=== PATIENT | female | born 1975 | race Caucasian/White ===

== ENCOUNTER 2016-08-17 21:23 | Emergency (ER) | payer BC, OTHER ==
[2016-08-17 21:29] VITALS: RESP 18
[2016-08-17] MEDS ORDERED: METOCLOPRAMIDE 5 MG/ML 2 ML VIAL IVP STA (21:55)
[2016-08-17] MEDS ORDERED: SODIUM CHLORIDE 0.9% 1,000 ML IV ONE (21:55)
[2016-08-17] MEDS ORDERED: diphenhydrAMINE 50 MG/ML 1 ML VIAL IVP STA (21:55)
[2016-08-17] MEDS ORDERED: KETOROLAC 30 MG/ML 1 ML VIAL IVP STA (21:55)
--- NOTE | 2016-08-17 22:13 | ED ---
Headache HPI - General Chief Complaint: Headache Stated Complaint: migraine,vomiting Time Seen by Provider: 08/17/16 21:40 Mode of arrival: ambulatory Limitations: no limitations - History of Present Illness Initial Comments: This patient is a 40-year-old woman who states she has history of migraine headaches. She presents today because she is having another one of her usual headaches, however this one has been more severe than his usual. She states that it started coming on gradually about 2 days ago. It is located in the bilateral retro-orbital area. It is an aching that is constant. She has not noted anything that makes it get better, but it is worse if she is in bright light. She tried taking Tylenol without any relief. She states she has had some accompanying nausea and vomiting. She is not having fever or chills, neck stiffness or pain, or any neurologic symptoms. She has previously seen a neurologist regarding headaches and she was given Topamax to take, but had stopped that months ago as she was attempting to become . MD Complaint: headache Onset/Timin -: days(s) Onset Description: gradual Location: right, left, retro-orbital Severity: severe Quality: aching, similar to previous headaches, worst headache of life Consistency: constant Improves With: nothing Worsens With: none Context: occurred at rest Associated Symptoms: nausea, vomiting Treatments Prior to Arrival: Acetaminophen - Related Data Home Medications Medication Instructions Recorded Confirmed Acetaminophen [Tylenol] 1,000 mg PO Q6HR PRN 08/17/16 08/17/16 Multivitamins, Thera [Multivitamin 1 tab PO DAILY 08/17/16 08/17/16 (formulary)] Allergies Allergy/AdvReac Type Severity Reaction Status Date / Time No Known Allergies Allergy Verified 08/17/16 21:55 Review of Systems ROS Statement: Those systems with pertinent positive or pertinent negative responses have been documented in the HPI. ROS Other: All systems not noted in ROS Statement are negative. Constitutional: Denies: fever, chills, weakness Eyes: Denies: eye pain, eye discharge, vision change ENT: Denies: ear pain, hearing loss Respiratory: Denies: cough Cardiovascular: Denies: chest pain Gastrointestinal: Reports: nausea, vomiting. Denies: abdominal pain, diarrhea Musculoskeletal: Denies: back pain Skin: Denies: rash Neurological: Reports: as per HPI, headache. Denies: weakness, numbness, paresthesias, confusion Psychiatric: Denies: anxiety Past Medical History Past Medical History: Fibromyalgia Additional Past Medical History / Comment(s): migraines History of Any Multi-Drug Resistant Organisms: None Reported Past Surgical History: Cholecystectomy Additional Past Surgical History / Comment(s): lab band 2010, invetro Past Psychological History: Depression Smoking Status: Never smoker Past Alcohol Use History: None Reported Past Drug Use History: None Reported General Exam Limitations: no limitations General appearance: alert, in no apparent distress, obese Head exam: Present: atraumatic, normocephalic Eye exam: Present: normal appearance. Absent: scleral icterus, conjunctival injection ENT exam: Present: normal oropharynx, mucous membranes moist Neck exam: Present: normal inspection, full ROM. Absent: tenderness, meningismus Neurological exam: Present: alert, oriented X3, CN II-XII intact. Absent: motor sensory deficit Skin exam: Present: warm, dry, intact, normal color. Absent: rash Course Vital Signs 08/17/16 21:26 Temperature 98.0 F Pulse Rate 87 Respiratory 18 Rate Blood Pressure 132/72 O2 Sat by Pulse 99 Oximetry Disposition Clinical Impression: Headache Disposition: HOME SELF-CARE Condition: Good Instructions: Acute Headache (ED) Referrals: Vivian Owen MD [Primary Care Provider] - 1-2 days Pato Velázquez MD [STAFF PHYSICIAN] - 1-2 days
--- NOTE | 2016-08-17 23:12 | CT ---
EXAM: CT HEAD Without Contrast INDICATION: 40-year-old female with headache. TECHNIQUE: Multiple, contiguous axial cuts of the brain are obtained from the posterior fossa to the cranial vault. Sagittal and coronal reformatted images provided. No IV contrast is administered. DOSE: CTDI is 57.4 mGy and DLP is 978.2 mGy-cm. DOSE REDUCTION: This CT exam was performed using one or more of the following dose reduction techniques: automated exposure control, adjustment of the mA and/or kV according to patient size, and/or use of iterative reconstruction technique. COMPARISON: 12/02/2015. FINDINGS: No intracranial hemorrhage, abnormal intra- or extra-axial collections or parenchymal lesions are seen. The shape and configuration of the cortical sulci, basal cisterns and ventricles are within normal limits. The carter-white differentiation is preserved. No evidence of mass effect, midline shift, or edema. The osseous structures are unremarkable. Stable maxillary mucosal thickening both bilaterally versus mucous retention cysts/polyps. IMPRESSION: No acute intracranial abnormality significant change.
[2016-08-17 23:34] VITALS: BP 119/61; PULSE 63; TEMP 97.6
== END 2016-08-17 23:45 | disposition home or self-care (01) ==
LOC: EC 21:23
DX: R51 Headache (principal); R11.2 Nausea with vomiting, unspecified; Z86.69 Personal history of other diseases of the nervous system and sense organs; Z79.899 Other long term (current) drug therapy
CPT/HCPCS: 70450; 99283; 96374; 96375 ×2; 96361 ×2; J1200; J2765; J1885

== ENCOUNTER 2016-09-11 04:51 | Observation (INO) | payer BC ==
[2016-09-11] MEDS ORDERED: SODIUM CHLORIDE 0.9% 1,000 ML IV STA (05:11)
[2016-09-11] MEDS ORDERED: ASPIRIN 81 MG CHEW PO STA (05:11)
[2016-09-11] MEDS ORDERED: ADENOSINE 3 MG/ML 2 ML VIAL IVP STA (05:12)
[2016-09-11 05:27] LABS: Basophils # (A) 0.1 k/uL (0-0.2); Basophils % (A) 1 %; CHCM 33.7; Eosinophils % (A) 0 %; HCT 42.4 % (34.0-46.0); HDW 2.74; Luc # (Auto) 0.15; Luc % (Auto) 1; Lymphocytes # (A) 3.1 k/uL (1.0-4.8); Lymphocytes % (A) 30 %; MCH 31.5 pg (25.0-35.0); MCV 95.2 fL (80.0-100.0); Mean Platelet Volume 6.8; Monocytes # (A) 0.7 k/uL (0-1.0); Monocytes % (A) 7 %; Neutrophils # (A) 6.4 k/uL (1.3-7.7); Neutrophils % (A) 61 %; RBC 4.45 m/uL (3.80-5.40); RDW 15.2 % (11.5-15.5); WBC 10.5 k/uL (3.8-10.6); WBC (Perox) 9.91
[2016-09-11 05:37] LABS: Prothrombin Time 10.1 sec (9.0-12.0)
[2016-09-11 05:52] LABS: ALT 28 U/L (9-52); AST 17 U/L (14-36); Alkaline Phosphatase 89 U/L (38-126); Anion Gap 15 mmol/L; Blood Urea Nitrogen 15 mg/dL (7-17); Calcium 9.4 mg/dL (8.4-10.2); Carbon Dioxide 18 mmol/L (22-30); Chloride 110 mmol/L (98-107); Glucose 114 mg/dL (74-99); Magnesium 1.6 mg/dL (1.6-2.3); Non-African American GFR(MDRD) >60 (>60 ml/min/1.73 sqM); Potassium 3.8 mmol/L (3.5-5.1); Sodium 143 mmol/L (137-145); Total Bilirubin 0.2 mg/dL (0.2-1.3)
--- NOTE | 2016-09-11 06:04 | XR ---
EXAM: XR Chest, 2 Views CLINICAL HISTORY: Chest Pain. TECHNIQUE: Frontal and lateral views of the chest. COMPARISON: No relevant prior studies available. FINDINGS: Lungs: No airspace consolidation. Pleural space: No significant pleural effusion. No pneumothorax. Heart: Normal cardiac silhouette allowing for AP technique. Bones/joints: Unremarkable as visualized. IMPRESSION: No acute findings.
[2016-09-11 06:10] LABS: Creatine Kinase MB 1.1 ng/mL (0.0-2.4)
[2016-09-11 06:18] LABS: Troponin I 0.058 ng/mL (0.000-0.034)
[2016-09-11] MEDS ORDERED: NITROGLYCERIN OINT 1 INCH/GM PACKET TOPICAL STA (06:28)
--- NOTE | 2016-09-11 06:43 | ED ---
Chest Pain HPI - General Chief Complaint: Chest Pain Stated Complaint: Chest Pain Time Seen by Provider: 09/11/16 05:11 Source: patient Mode of arrival: ambulatory Limitations: no limitations - History of Present Illness Initial Comments: This 40-year-old white female presents with a complaint of some chest pain which started at approximately 1:00 AM. It woke her from sleep. She was having some shortness of breath as well. She states that the symptoms are fairly severe in nature. She denies any previous similar incidents. She denies any previous known cardiac disease. She's never had SVT in the past. She drove herself to the emergency department. No other complaints or modifying factors. She presents with a heart rate of approximately 230 beats per minute. - Related Data Home Medications Medication Instructions Recorded Confirmed No Known Home Medications [No 09/11/16 09/11/16 Known Home Medications] Allergies Allergy/AdvReac Type Severity Reaction Status Date / Time No Known Allergies Allergy Verified 09/11/16 05:02 Review of Systems ROS Statement: Those systems with pertinent positive or pertinent negative responses have been documented in the HPI. ROS Other: All systems not noted in ROS Statement are negative. Past Medical History Past Medical History: Fibromyalgia Additional Past Medical History / Comment(s): migraines History of Any Multi-Drug Resistant Organisms: None Reported Past Surgical History: Cholecystectomy Additional Past Surgical History / Comment(s): lab band 2010, invetro Past Psychological History: Depression Smoking Status: Never smoker Past Alcohol Use History: None Reported Past Drug Use History: None Reported General Exam - General Exam Comments Initial Comments: GENERAL: The patient is well nourished and well hydrated. VITAL SIGNS: Heart rate, blood pressure, respiratory rate reviewed as recorded in nurse's notes. EYES: Pupils are round and reactive. Extraocular movements are intact. No conjunctival / lid redness or swelling. ENT: No external evidence of injury, swelling, or ecchymosis. Airway is patent. Throat is clear. NECK: Nontender. No swelling or evidence of injury. No subcutaneous emphysema. Trachea is midline. No thyroid mass. HEART: Severely tachycardic heart rate. Good peripheral pulses. LUNGS/CHEST: Breath sounds clear and equal bilaterally. No rales, rhonchi, or wheezes. No ecchymosis, subcutaneous emphysema, or tenderness. ABDOMEN: Abdomen soft without tenderness. No palpable masses or organomegaly. No peritoneal signs. No abdominal wall swelling or ecchymosis. EXTREMITIES: No extremity tenderness. Normal muscle tone and function. No thoracolumbar tenderness. NEUROLOGIC: Sensation is grossly intact. Cranial nerve exam reveals face is symmetrical, tongue is midline, speech is clear. SKIN: No abrasions or ecchymosis is noted. No induration or masses noted. PSYCHIATRIC: Alert and oriented. Appropriate behavior and judgment. Limitations: no limitations Course Vital Signs 09/11/16 09/11/16 09/11/16 04:55 05:08 05:19 Temperature 98.4 F Pulse Rate 220 H 230 H 90 Respiratory 20 18 Rate Blood Pressure 135/71 114/68 O2 Sat by Pulse 99 100 Oximetry 09/11/16 05:47 Temperature Pulse Rate 85 Respiratory 18 Rate Blood Pressure 113/67 O2 Sat by Pulse 100 Oximetry Chest Pain MDM - MDM The patient was seen and examined immediately upon arrival. Her initial EKG shows a supraventricular tachycardia at a heart rate of 231. There are multiple ST-T wave changes which are likely rate related. The QRS duration is 72 and the QTc interval is 368. She is placed on a cardiac respiratory monitor. She received 6 modems of adenosine and does convert into a normal sinus rhythm. The repeat EKG shows a normal sinus rhythm at a rate of 94. There is no acute ST-T wave changes identified. The AR interval is 144, QS duration is 82, the QTc interval is 407. She is feeling markedly improved. She did receive some fluid hydration as well as aspirin and Nitropaste. Her troponin came back slightly elevated. The remainder of labs are essentially within normal limits. The chest x-ray is negative. Is felt as though the patient would require admission to the hospital for further treatment especially in light of the elevated troponin. Case is discussed with internal medicine and they are agreeable to admission with cardiology to consult. Disposition Clinical Impression: SVT (supraventricular tachycardia), Elevated troponin, Chest pain, Unstable angina pectoris Disposition: ADMITTED IP TO THIS HOSP Condition: Fair Time of Disposition: 06:53 Decision Date: 09/11/16 Decision Time: 06:53
[2016-09-11] MEDS ORDERED: NITROGLYCERIN SL TABS 0.4 MG TAB SUBLINGUAL PRN (06:54)
[2016-09-11] MEDS ORDERED: HEPARIN SODIUM,PORCINE 5,000 UNIT/ML 1 ML VIAL IV ONE (06:54)
[2016-09-11] MEDS: HEPARIN SODIUM,PORCINE/D5W PMX 25,000 UNIT in DEXTROSE/WATER 1 500ML.BAG IV SCH (07:50)
[2016-09-11 08:45] VITALS: BMI 43.9
--- NOTE | 2016-09-11 09:53 | ECHOF ---
Referral Reason: MEASUREMENTS -------- HEIGHT: 162.6 cm WEIGHT: 113.4 kg BP: 116/70 IVSd: 1.5 cm (0.6 - 1.1) LVIDd: 3.8 cm (3.9 - 5.3) LVPWd: 1.3 cm (0.6 - 1.1) LVIDs: 2.3 cm Ao Diam: 3.3 cm (2.0 - 3.7) LA Diam: 3.2 cm (2.7 - 3.8) AV Cusp: 2.5 cm (1.5 - 2.6) EPSS: 0.2 cm MV E Frandy: 0.85 m/s MV DecT: 154 ms MV A Frandy: 0.46 m/s MV E/A Ratio: 1.85 RAP: 5.00 mmHg RVSP: 12.89 mmHg MV EF SLOPE: 132.16 mm/s (70 - 150) MV EXCURSION: 21.87 mm (> 18.000) FINDINGS -------- Sinus rhythm. This was a technically good study. There is mild concentric left ventricular hypertrophy. Overall left ventricular systolic function is normal with, an EF between 55 - 60 %. The right ventricle is normal in size and function. The left atrium is normal in size. The right atrium is normal in size. The aortic valve is trileaflet, and appears structurally normal. No aortic stenosis or regurgitation. There is trace mitral regurgitation. Trace tricuspid regurgitation present. The right ventricular systolic pressure, as measured by Doppler, is 12.89mmHg. Pulmonic valve appears structurally normal. The aortic root size is normal. The pericardium is normal. CONCLUSIONS -------- 1. Sinus rhythm. 2. Trace tricuspid regurgitation present. 3. The right ventricular systolic pressure, as measured by Doppler, is 12.89mmHg. 4. Pulmonic valve appears structurally normal. 5. The aortic root size is normal. 6. The pericardium is normal. 7. This was a technically good study. 8. There is mild concentric left ventricular hypertrophy. 9. Overall left ventricular systolic function is normal with, an EF between 55 - 60 %. 10. The right ventricle is normal in size and function. 11. The left atrium is normal in size. 12. The right atrium is normal in size. 13. The aortic valve is trileaflet, and appears structurally normal. No aortic stenosis or regurgitation. 14. There is trace mitral regurgitation. MUSHROOM PICKER: Shantel Logan RDCS
[2016-09-11] MEDS: ACETAMINOPHEN TAB 325 MG TAB PO PRN ×2 (10:26→15:29)
[2016-09-11 11:52] LABS: Creatine Kinase MB 2.3 ng/mL (0.0-2.4)
--- NOTE | 2016-09-11 11:54 | P.CRDCN ---
History of Present Illness Consult date: 09/11/16 Reason for Consult (text): SVT, chest pain, elevated troponin Chief complaint: chest pain, rapid heartbeat History of present illness: This is a pleasant 40-year-old female patient with no significant medical history. She does have a history of fibromyalgia and migraines in the past, is not currently on any home medications. She denies any family history of cardiovascular disease. She presented to the emergency department after awakening at around 1 AM with complaints of left-sided chest discomfort that radiated to her arm and also feeling her heart racing and some dizziness. Upon presentation she was found to be in SVT with a heart rate in the 230s. She was given adenosine 6 and converted to sinus rhythm at which time she did have a 4 beat run of nonsustained VT. Laboratory values did show a slightly elevated troponin at 0.058. Since admission, she is maintaining sinus rhythm. She denies any further complaints of chest discomfort. Past Medical History Past Medical History: Fibromyalgia Additional Past Medical History / Comment(s): migraines History of Any Multi-Drug Resistant Organisms: None Reported Past Surgical History: Cholecystectomy Additional Past Surgical History / Comment(s): lab band 2010, invetro Past Psychological History: Depression Smoking Status: Never smoker Past Alcohol Use History: None Reported Past Drug Use History: None Reported - Past Family History Mother Family Medical History: Cancer Additional Family Medical History / Comment(s): Breast CA Brother(s) Family Medical History: No Reported History Medications and Allergies Home Medications Medication Instructions Recorded Confirmed Type No Known Home Medications [No 09/11/16 09/11/16 History Known Home Medications] Allergies Allergy/AdvReac Type Severity Reaction Status Date / Time No Known Allergies Allergy Verified 09/11/16 05:02 Physical Exam Vitals: Vital Signs Temp Pulse Pulse Resp BP BP Pulse Ox 09/11/16 08:25 97.6 F 76 16 103/59 95 09/11/16 07:35 98.0 F 90 18 107/58 99 09/11/16 07:25 97.6 F 91 16 123/75 99 09/11/16 06:52 86 18 116/70 100 09/11/16 05:47 85 18 113/67 100 09/11/16 05:19 90 18 114/68 100 09/11/16 05:08 230 H 09/11/16 04:55 98.4 F 220 H 20 135/71 99 Intake and Output 09/10/16 09/11/16 09/11/16 22:59 06:59 14:59 Intake Total 360 Balance 360 Intake: Oral 360 Other: # Voids 1 Weight 113.398 kg 116 kg Patient Weight 09/12/16 06:59 Weight 116 kg PHYSICAL EXAMINATION: HEENT: Head is atraumatic, normocephalic. Pupils equal, round. Neck is supple. There is no elevated jugular venous pressure. HEART EXAMINATION: Heart sounds regular, S1 and S2 normal. No murmur or gallop heard. CHEST EXAMINATION: Lungs are clear to auscultation and precussion. No chest wall tenderness is noted on palpation or with deep breathing. ABDOMEN: Soft, nontender. Bowel sounds are heard. No organomegaly noted. EXTREMITIES: 2+ peripheral pulses with no evidence of peripheral edema and no calf tenderness noted. NEUROLOGIC patient is awake, alert and oriented x3. . Results 09/11/16 04:56 09/11/16 04:56 Cardiac Enzymes 09/11/16 09/11/16 Range/Units 04:56 04:56 AST 17 (14-36) U/L CK-MB (CK-2) 1.1 (0.0-2.4) ng/mL Troponin I 0.058 H* (0.000-0.034) ng/mL Coagulation 09/11/16 09/11/16 Range/Units 04:56 11:01 PT 10.1 (9.0-12.0) sec APTT 25.0 31.3 H (22.0-30.0) sec CBC 09/11/16 Range/Units 04:56 WBC 10.5 (3.8-10.6) k/uL RBC 4.45 (3.80-5.40) m/uL Hgb 14.0 (11.4-16.0) gm/dL Hct 42.4 (34.0-46.0) % Plt Count 366 (150-450) k/uL Comprehensive Metabolic Panel 09/11/16 Range/Units 04:56 Sodium 143 (137-145) mmol/L Potassium 3.8 (3.5-5.1) mmol/L Chloride 110 H (98-107) mmol/L Carbon Dioxide 18 L (22-30) mmol/L BUN 15 (7-17) mg/dL Creatinine 0.80 (0.52-1.04) mg/dL Glucose 114 H (74-99) mg/dL Calcium 9.4 (8.4-10.2) mg/dL AST 17 (14-36) U/L ALT 28 (9-52) U/L Alkaline Phosphatase 89 (38-126) U/L Total Protein 7.0 (6.3-8.2) g/dL Albumin 4.3 (3.5-5.0) g/dL Current Medications Generic Name Dose Route Start Last Admin Trade Name Freq PRN Reason Stop Dose Admin Acetaminophen 650 mg 09/11/16 10:08 09/11/16 10:26 Tylenol Tab PO 650 mg Q6HR PRN Administration Fever and/ or Pain Aspirin 325 mg 09/12/16 09:00 Aspirin PO DAILY [facility] Heparin Sodium (Porcine) 0 unit 09/11/16 06:54 Heparin IV Q6HR PRN Low PTT Protocol Sodium Chloride 1,000 mls @ 125 mls/hr 09/11/16 05:11 09/11/16 05:19 Saline 0.9% IV 09/11/16 13:10 125 mls/hr .Q8H STA Administration Heparin Sodium/Dextrose 25,000 500 mls @ 20 mls/hr 09/11/16 07:00 09/11/16 07 :50 unit/ IV Solution IV 8.82 units/kg/hr .Q24H BRYCE 20 mls/hr Protocol Administration 8.82 UNITS/KG/HR Nitroglycerin 1 inch 09/11/16 12:00 Nitro-Bid Oint TOPICAL Q6HR [facility] Nitroglycerin 0.4 mg 09/11/16 06:54 Nitrostat SUBLINGUAL Q5M PRN Chest Pain Intake and Output 09/10/16 09/11/16 09/11/16 22:59 06:59 14:59 Intake Total 360 Balance 360 Intake: Oral 360 Other: # Voids 1 Weight 113.398 kg 116 kg Patient Weight 09/12/16 06:59 Weight 116 kg 09/11/16 04:56 09/11/16 04:56 EKG Interpretations (text) Initial EKG shows SVT, subsequent showed sinus rhythm with nonspecific ST-T wave abnormalities Assessment and Plan Plan: Assessment and plan #1 SVT, new onset #2 left-sided chest discomfort #3 mildly elevated troponin From cardiology's perspective, we'll obtain a 2-D echo with Doppler as well as TSH. We will wait second and third sets of troponins. Initiate the patient on beta safia. Further recommendations to follow. INVESTIGATOR FRAUD note has been reviewed, I agree with a documented findings and plan of care. Patient was seen and examined.
--- NOTE | 2016-09-11 11:57 | HP ---
CHIEF COMPLAINT: Chest pain. HISTORY OF PRESENT ILLNESS: This 40-year-old female with past medical history significant for morbid obesity presents to the hospital with new onset chest pain and chest palpitation. Patient said the pain woke her up at 1:00 this morning from sleep where she felt tightness in her chest going to her left arm and that pain continued to happen for a good 1 hour with fluttering in the chest. Her told her that he sees her shirt is moving on her chest due to the fluttering. Patient tried to drink cold water, but it did not help her. Patient tried to go back to sleep, but was not able to do so, thought about calling 911, but her paraplegic said do not call because that will wake her son up from sleep who is 1 year old. The patient had to drive herself to the emergency department and when she got there her heart rate was above 200. EKG showed SVT. Patient received one dose of adenosine 6 mg, that put her back in sinus rhythm and brought the heart rate less than 100. Patient has been symptom free since that time. Her troponin was slightly elevated at 0.05 and was admitted for observation and cardiac evaluation. Patient said that she drinks 3 cups of coffee every day, 3 to 4 [employer]a every day. Denied tobacco, alcohol or drug abuse. Denied any family history of coronary artery disease or sudden cardiac . Her mother is alive and healthy. Her brother is alive and health and her dad committed suicide when he was young. ALLERGIES: No known drug allergies. HOME MEDICATIONS: None. PAST MEDICAL HISTORY: Only significant for morbid obesity. PAST SURGICAL HISTORY: None. SOCIAL HISTORY: As mentioned above. PHYSICAL EXAMINATION: VITAL SIGNS: Temperature 98.0, heart rate of 90, respiratory rate 18, blood pressure 107/58 and heart rate currently is fluctuating between 80 and 90, saturation 99% on room air. GENERAL: In her stated age in no acute distress. HEENT: Atraumatic, normocephalic. PERRLA. NECK: Supple. No masses. No thyromegaly. LUNGS: Clear to auscultation bilaterally. HEART: Normal S1, S2. No murmur, rubs or gallops. LOWER EXTREMITY: No edema. ABDOMEN: Soft, no tenderness. Positive bowel sounds in all 4 quadrants. PSYCH: Alert and oriented x3 in relaxed mood and affect. Normal remote and recent memory. NEURO: Cranial nerves 2 to 12 intact. Normal deep tendon reflexes and sensation. SKIN: No rash. IMAGING AND LABS: CBC entirely normal. Chem-7 entirely normal. Troponin elevated at 0.058. Liver function tests within normal limits. PT, PTT, INR were within normal limits. Chest x-ray showed normal findings. Echo was done this morning and showed preserved ejection fraction with mild concentric left ventricular hypertrophy. No other abnormality found on the 2-D echo. ASSESSMENT AND PLAN: 1. Supraventricular tachycardia responded to adenosine first time. Patient denied any previous episode. Consultation regarding moderate use of caffeine and switch from coffee to decaf. Quit drinking her soda and switch to water. Patient also will be followed by Cardiology in the hospital and outpatient. If she experiences another episode then she might need further evaluation. A 2-D echo was done and showed normal finding. 2. Chest pain, likely representing demand ischemia given that the heart rate was greater than 200. Patient currently is pain free. We will discuss with Cardiology current risk ( ) and possible need for further testing, which can be done in outpatient at this point, but I can discontinue heparin drip safely. 3. Morbid obesity. Consult patient regarding weight loss and healthy lifestyle. DISCHARGE PLANNING: Based on clinical progress. ANTONIO
[2016-09-11 11:59] LABS: Troponin I 0.315 ng/mL (0.000-0.034)
[2016-09-11] MEDS: HEPARIN SODIUM,PORCINE 5,000 UNIT/ML 1 ML VIAL IV PRN (15:28)
[2016-09-11] MEDS: NITROGLYCERIN OINT 1 INCH/GM PACKET TOPICAL SCH ×2 (15:29→17:01)
[2016-09-11] MEDS ORDERED: ONDANSETRON 4 MG/2 ML VIAL IVP PRN (16:02)
[2016-09-11] MEDS: METOPROLOL TARTRATE 25 MG TAB PO SCH ×2 (17:02→20:50)
[2016-09-11] MEDS: BUTALB/APAP/CAFF 50-325-40MG TAB PO PRN ×2 (17:02→18:55)
[2016-09-11 18:05] LABS: Creatine Kinase MB 2.7 ng/mL (0.0-2.4); Troponin I 0.262 ng/mL (0.000-0.034)
[2016-09-11 21:30] VITALS: RESP 16
[2016-09-12] MEDS: NITROGLYCERIN OINT 1 INCH/GM PACKET TOPICAL SCH ×3 (00:06→11:31)
[2016-09-12] MEDS: HEPARIN SODIUM,PORCINE/D5W PMX 25,000 UNIT in DEXTROSE/WATER 1 500ML.BAG IV SCH (06:56)
[2016-09-12] MEDS: HEPARIN SODIUM,PORCINE 5,000 UNIT/ML 1 ML VIAL IV PRN (06:59)
[2016-09-12 07:01] LABS: Cholesterol 135 mg/dL (<200); HDL Cholesterol 47 mg/dL (40-60)
[2016-09-12 07:04] LABS: Mean Platelet Volume 6.5
[2016-09-12] MEDS: METOPROLOL TARTRATE 25 MG TAB PO SCH (08:10)
[2016-09-12] MEDS ORDERED: ASPIRIN 325 MG TAB PO SCH (09:00)
[2016-09-12 11:22] VITALS: BP 137/87; PULSE 85; TEMP 97.5
--- NOTE | 2016-09-15 12:25 | DS ---
ADMISSION DIAGNOSES: 1. Supraventricular tachycardia. 2. Elevated troponin. 3. Hypertriglyceridemia. DISCHARGE DIAGNOSES: 1. Supraventricular tachycardia. 2. Elevated troponin. 3. Hypertriglyceridemia. CONSULTATION: Cardiology. PROCEDURES: 2D echo showed normal ejection fraction with no other abnormality. HOSPITAL COURSE: This is a 40 -year-old female with past medical history significant for morbid obesity, presents to the hospital with new onset chest pain and palpitation that woke her up from sleep at 1 o'clock in the morning. The patient in the emergency room was found to have heart rate greater than 200. EKG showed SVT. The patient received Adenosine 6 mg. Placed her back in normal sinus rhythm with heart rate 80. The patient had elevated troponin and was kept for observation, went up on the second evaluation and down on the third evaluation. That required the patient to be continued on heparin drip and cardiology wanted to keep the patient for close monitoring. Today, the patient is denying chest pain, shortness of breath, nausea and vomiting, abdominal pain, dizziness, lightheadedness or blurry vision. Denies any palpitation during the night. labor commissioner reviewed and showed normal sinus rhythm. The patient unstable from the medical standpoint. PLAN: Discussed with cardiology who would like the patient to follow-up outpatient closely for further evaluation in the future. The patient agreeable to the current treatment plan and was discharged in stable condition. ANTONIO
== END 2016-09-12 15:11 | disposition home or self-care (01) ==
LOC: EC 04:51 → INTOOBSV 06:54 → 6SEL 06:54
PROVIDERS: ADMIT Internal Medicine; ATTEND Internal Medicine
DX: I47.1 Supraventricular tachycardia (principal); R94.31 Abnormal electrocardiogram [ECG] [EKG]; E78.1 Pure hyperglyceridemia; M79.7 Fibromyalgia; G43.909 Migraine, unspecified, not intractable, without status migrainosus; F32.9 Major depressive disorder, single episode, unspecified; E66.01 Morbid (severe) obesity due to excess calories; Z98.84 Bariatric surgery status; Z68.41 Body mass index [BMI] 40.0-44.9, adult
CPT/HCPCS: 96376 ×2; 96365; 96366 ×2; 96375; 96361; 96374; 99285; 36415; 93005; 93306; 80061; 80053; 84443; 82550; 82553; 83735; 84484; 85025; 85049; 85610; 85730 ×2; 71020; G0378 ×2; J1644 ×4; J0153

== ENCOUNTER 2016-12-28 01:09 | Emergency (ER) | payer BC ==
[2016-12-28 02:19] LABS: Basophils # (A) 0.1 k/uL (0-0.2); Basophils % (A) 1 %; CH 31.1; CHCM 32.6; Eosinophils % (A) 0 %; HCT 39.9 % (34.0-46.0); HDW 2.57; Luc # (Auto) 0.11; Luc % (Auto) 1; Lymphocytes # (A) 2.9 k/uL (1.0-4.8); Lymphocytes % (A) 27 %; MCH 31.3 pg (25.0-35.0); MCHC 32.6 g/dL (31.0-37.0); MCV 95.9 fL (80.0-100.0); Mean Platelet Volume 6.7; Monocytes # (A) 0.6 k/uL (0-1.0); Monocytes % (A) 6 %; Neutrophils # (A) 6.8 k/uL (1.3-7.7); Neutrophils % (A) 65 %; RBC 4.16 m/uL (3.80-5.40); WBC 10.5 k/uL (3.8-10.6); WBC (Perox) 10.62
[2016-12-28 02:29] LABS: ALT 26 U/L (9-52); AST 15 U/L (14-36); Alkaline Phosphatase 81 U/L (38-126); Anion Gap 12 mmol/L; Blood Urea Nitrogen 13 mg/dL (7-17); Calcium 9.2 mg/dL (8.4-10.2); Carbon Dioxide 22 mmol/L (22-30); Chloride 107 mmol/L (98-107); Glucose 155 mg/dL (74-99); Non-African American GFR(MDRD) >60 (>60 ml/min/1.73 sqM); Potassium 3.5 mmol/L (3.5-5.1); Sodium 141 mmol/L (137-145); Total Bilirubin <0.1 mg/dL (0.2-1.3); Total Protein 6.7 g/dL (6.3-8.2)
--- NOTE | 2016-12-28 03:31 | ED ---
Seizure HPI - General Chief Complaint: Seizure Stated Complaint: Seizure Time Seen by Provider: 12/28/16 01:12 Source: EMS Mode of arrival: EMS Limitations: no limitations - History of Present Illness Initial Comments: Patient is a 41-year-old woman brought to be evaluated for possible seizure. The patient does give history while having the shaking event. She does complain of pain everywhere. Patient denies trauma related to the shaking. MD Complaint: possible seizure -: hour(s) Description of Episode: tonic-clonic movement -: second(s) Witnessed: yes - by bystander Place: home Possible Precipitating Event: none Associated Symptoms: other (Pain all over) - Related Data Home Medications Medication Instructions Recorded Confirmed Metoprolol Tartrate [Lopressor] 25 mg PO BID 09/12/16 12/28/16 Aspirin EC [Ecotrin Low Dose] 81 mg PO DAILY 12/28/16 12/28/16 Previous Rx's Medication Instructions Recorded Butalb/APAP/Caff 50-325-40Mg 1 each PO Q6HR #30 tab 12/30/16 [Fioricet 50-325-40] Cephalexin [Keflex] 500 mg PO Q8HR #15 cap 12/30/16 levETIRAcetam [Keppra] 750 mg PO Q12H #60 tab 12/30/16 Allergies Allergy/AdvReac Type Severity Reaction Status Date / Time No Known Allergies Allergy Verified 12/28/16 21:43 Review of Systems ROS Statement: Those systems with pertinent positive or pertinent negative responses have been documented in the HPI. ROS Other: All systems not noted in ROS Statement are negative. Constitutional: Denies: fever, chills Respiratory: Denies: cough, dyspnea Cardiovascular: Denies: chest pain, palpitations, syncope Gastrointestinal: Denies: abdominal pain, nausea, vomiting, diarrhea Genitourinary: Denies: dysuria, hematuria Musculoskeletal: Reports: back pain, myalgia Skin: Denies: rash Neurological: Denies: headache, weakness, numbness Past Medical History Past Medical History: Fibromyalgia Additional Past Medical History / Comment(s): migraines, elevated HR History of Any Multi-Drug Resistant Organisms: None Reported Past Surgical History: Cholecystectomy Additional Past Surgical History / Comment(s): lab band 2010, invetro Past Psychological History: Depression Smoking Status: Never smoker Past Alcohol Use History: None Reported Past Drug Use History: None Reported - Past Family History Mother Family Medical History: Cancer Additional Family Medical History / Comment(s): Breast CA Brother(s) Family Medical History: No Reported History General Exam Limitations: no limitations General appearance: alert, in no apparent distress, obese Head exam: Present: atraumatic, normocephalic Eye exam: Present: normal appearance. Absent: scleral icterus, conjunctival injection ENT exam: Present: normal oropharynx Neck exam: Present: normal inspection, full ROM Respiratory exam: Present: normal lung sounds bilaterally. Absent: respiratory distress, wheezes, rales, rhonchi, stridor Cardiovascular Exam: Present: regular rate, normal rhythm, normal heart sounds. Absent: systolic murmur, diastolic murmur, rubs, gallop GI/Abdominal exam: Present: soft. Absent: distended, tenderness, guarding, rebound, rigid Extremities exam: Present: normal capillary refill. Absent: pedal edema, calf tenderness Back exam: Absent: vertebral tenderness Neurological exam: Present: alert, oriented X3, CN II-XII intact. Absent: motor sensory deficit Skin exam: Present: warm, dry, intact, normal color. Absent: rash Course Vital Signs 12/28/16 12/28/16 12/28/16 01:13 02:28 03:00 Temperature 98.6 F Pulse Rate 114 H 106 H 87 Respiratory 20 18 20 Rate Blood Pressure 145/74 133/74 127/60 O2 Sat by Pulse 96 94 L 97 Oximetry 12/28/16 12/28/16 12/28/16 04:00 04:57 05:13 Temperature 98.1 F 98.7 F Pulse Rate 86 91 91 Respiratory 16 18 18 Rate Blood Pressure 120/71 130/60 116/57 O2 Sat by Pulse 98 96 Oximetry Medical Decision Making - Medical Decision Making Patient's a 41-year-old woman brought to be evaluate for suspected seizures. The patient however is alert and is conversant during the shaking episodes which do not appear typical of a true seizure, being more consistent with psychogenic type seizure. - Lab Data Result diagrams: 12/28/16 01:31 12/28/16 01:31 Lab Results 12/28/16 12/28/16 12/28/16 Range/Units 01:31 01:31 02:03 WBC 10.5 (3.8-10.6) k/uL RBC 4.16 (3.80-5.40) m/uL Hgb 13.0 (11.4-16.0) gm/dL Hct 39.9 (34.0-46.0) % MCV 95.9 (80.0-100.0) fL MCH 31.3 (25.0-35.0) pg MCHC 32.6 (31.0-37.0) g/dL RDW 14.0 (11.5-15.5) % Plt Count 394 (150-450) k/uL Neutrophils % 65 % Lymphocytes % 27 % Monocytes % 6 % Eosinophils % 0 % Basophils % 1 % Neutrophils # 6.8 (1.3-7.7) k/uL Lymphocytes # 2.9 (1.0-4.8) k/uL Monocytes # 0.6 (0-1.0) k/uL Eosinophils # 0.0 (0-0.7) k/uL Basophils # 0.1 (0-0.2) k/uL Sodium 141 (137-145) mmol/L Potassium 3.5 (3.5-5.1) mmol/L Chloride 107 (98-107) mmol/L Carbon Dioxide 22 (22-30) mmol/L Anion Gap 12 mmol/L BUN 13 (7-17) mg/dL Creatinine 0.73 (0.52-1.04) mg/dL Est GFR (MDRD) Af Amer >60 (>60 ml/min/1.73 sqM) Est GFR (MDRD) Non-Af >60 (>60 ml/min/1.73 sqM) Glucose 155 H (74-99) mg/dL Calcium 9.2 (8.4-10.2) mg/dL Total Bilirubin <0.1 L (0.2-1.3) mg/dL AST 15 (14-36) U/L ALT 26 (9-52) U/L Alkaline Phosphatase 81 (38-126) U/L Total Protein 6.7 (6.3-8.2) g/dL Albumin 3.8 (3.5-5.0) g/dL Urine Color Urine Appearance (Clear) Urine pH (5.0-8.0) Ur Specific [place] (1.001-1.035) Urine Protein (Negative) Urine Glucose (UA) (Negative) Urine Ketones (Negative) Urine Blood (Negative) Urine Nitrite (Negative) Urine Bilirubin (Negative) Urine Urobilinogen (<2.0) mg/dL Ur Leukocyte Esterase (Negative) Urine RBC (0-5) /hpf Urine WBC (0-5) /hpf Ur Squamous Epith Cells (0-4) /hpf Calcium Oxalate Crystal (None) /hpf Amorphous Sediment (None) /hpf Urine Mucus (None) /hpf Urine Opiates Screen Not Detected (NotDetected) Ur Oxycodone Screen Not Detected (NotDetected) Urine Methadone Screen Not Detected (NotDetected) Ur Propoxyphene Screen Not Detected (NotDetected) Ur Barbiturates Screen Not Detected (NotDetected) U Tricyclic Antidepress Not Detected (NotDetected) Ur Phencyclidine Scrn Not Detected (NotDetected) Ur Amphetamines Screen Not Detected (NotDetected) U Methamphetamines Scrn Not Detected (NotDetected) U Benzodiazepines Scrn Not Detected (NotDetected) Urine Cocaine Screen Not Detected (NotDetected) U Marijuana (THC) Screen Detected H (NotDetected) 12/28/16 Range/Units 02:03 WBC (3.8-10.6) k/uL RBC (3.80-5.40) m/uL Hgb (11.4-16.0) gm/dL Hct (34.0-46.0) % MCV (80.0-100.0) fL MCH (25.0-35.0) pg MCHC (31.0-37.0) g/dL RDW (11.5-15.5) % Plt Count (150-450) k/uL Neutrophils % % Lymphocytes % % Monocytes % % Eosinophils % % Basophils % % Neutrophils # (1.3-7.7) k/uL Lymphocytes # (1.0-4.8) k/uL Monocytes # (0-1.0) k/uL Eosinophils # (0-0.7) k/uL Basophils # (0-0.2) k/uL Sodium (137-145) mmol/L Potassium (3.5-5.1) mmol/L Chloride (98-107) mmol/L Carbon Dioxide (22-30) mmol/L Anion Gap mmol/L BUN (7-17) mg/dL Creatinine (0.52-1.04) mg/dL Est GFR (MDRD) Af Amer (>60 ml/min/1.73 sqM) Est GFR (MDRD) Non-Af (>60 ml/min/1.73 sqM) Glucose (74-99) mg/dL Calcium (8.4-10.2) mg/dL Total Bilirubin (0.2-1.3) mg/dL AST (14-36) U/L ALT (9-52) U/L Alkaline Phosphatase (38-126) U/L Total Protein (6.3-8.2) g/dL Albumin (3.5-5.0) g/dL Urine Color Red Urine Appearance Turbid H (Clear) Urine pH 5.0 (5.0-8.0) Ur Specific [place] 1.022 (1.001-1.035) Urine Protein 1+ H (Negative) Urine Glucose (UA) Negative (Negative) Urine Ketones Negative (Negative) Urine Blood Large H (Negative) Urine Nitrite Negative (Negative) Urine Bilirubin Negative (Negative) Urine Urobilinogen <2.0 (<2.0) mg/dL Ur Leukocyte Esterase Negative (Negative) Urine RBC 35 H (0-5) /hpf Urine WBC 2 (0-5) /hpf Ur Squamous Epith Cells <1 (0-4) /hpf Calcium Oxalate Crystal Rare H (None) /hpf Amorphous Sediment Rare H (None) /hpf Urine Mucus Rare H (None) /hpf Urine Opiates Screen (NotDetected) Ur Oxycodone Screen (NotDetected) Urine Methadone Screen (NotDetected) Ur Propoxyphene Screen (NotDetected) Ur Barbiturates Screen (NotDetected) U Tricyclic Antidepress (NotDetected) Ur Phencyclidine Scrn (NotDetected) Ur Amphetamines Screen (NotDetected) U Methamphetamines Scrn (NotDetected) U Benzodiazepines Scrn (NotDetected) Urine Cocaine Screen (NotDetected) U Marijuana (THC) Screen (NotDetected) Disposition Clinical Impression: Psychogenic nonepileptic seizure Disposition: HOME SELF-CARE Condition: Good Instructions: Tremors (ED) Referrals: Vivian Owen MD [Primary Care Provider] - 1-2 days
[2016-12-28 04:59] VITALS: PULSE 91; RESP 18
[2016-12-28 05:02] LABS: Amorphous Sediment,Urine Rare /hpf; Appearance,Urine Turbid (Clear); Bilirubin,Urine Negative (Negative); Calcium Oxalate Crystals,Urine Rare /hpf; Glucose,Urine (UA) Negative (Negative); Ketones,Urine Negative (Negative); Leukocyte Esterase,Urine Negative (Negative); Mucus,Urine Rare /hpf; Nitrite,Urine Negative (Negative); Particle Count 41333; Protein,Urine 1+ (Negative); RBC,Urine 35 /hpf (0-5); Specific Gravity,Urine 1.022 (1.001-1.035); Squamous Epithelial Cell,Urine <1 /hpf (0-4); UA Billing (MACRO vs. MICRO) MICRO; Urobilinogen,Urine <2.0 mg/dL (<2.0); WBC,Urine 2 /hpf (0-5)
[2016-12-28 05:15] VITALS: BP 116/57; TEMP 98.7
== END 2016-12-28 05:15 | disposition home or self-care (01) ==
LOC: EC 01:09
DX: R56.9 Unspecified convulsions (principal); M79.7 Fibromyalgia; Z79.82 Long term (current) use of aspirin; Z79.899 Other long term (current) drug therapy
CPT/HCPCS: 36415; 80053; 80306; 81001; 85025; 93005; 99285

== ENCOUNTER 2016-12-28 17:10 | Inpatient (IN) | payer BC ==
[2016-12-28] MEDS ORDERED: SODIUM CHLORIDE 0.9% 500 ML IV STA (17:43)
[2016-12-28] MEDS ORDERED: ONDANSETRON 4 MG/2 ML VIAL IVP STA (17:43)
[2016-12-28] MEDS ORDERED: SODIUM CHLORIDE 0.9% 1,000 ML IV STA (17:43)
[2016-12-28] MEDS ORDERED: LORazepam 2 MG/ML INJ IV STA (17:43)
[2016-12-28 18:04] LABS: Glucose,Whole Blood 88 mg/dL (75-99)
[2016-12-28 18:11] LABS: Basophils % (A) 0 %; CH 31.1; CHCM 32.6; Eosinophils # (A) 0.1 k/uL (0-0.7); Eosinophils % (A) 1 %; HCT 38.6 % (34.0-46.0); HDW 2.49; HGB 12.6 gm/dL (11.4-16.0); Luc # (Auto) 0.11; Luc % (Auto) 1; Lymphocytes # (A) 2.2 k/uL (1.0-4.8); Lymphocytes % (A) 23 %; MCH 31.3 pg (25.0-35.0); MCHC 32.6 g/dL (31.0-37.0); Mean Platelet Volume 6.8; Monocytes # (A) 0.5 k/uL (0-1.0); Monocytes % (A) 6 %; Neutrophils # (A) 6.3 k/uL (1.3-7.7); Neutrophils % (A) 68 %; RBC 4.02 m/uL (3.80-5.40); RDW 13.7 % (11.5-15.5); WBC 9.3 k/uL (3.8-10.6); WBC (Perox) 9.86
[2016-12-28 18:18] LABS: HCG,Qualitative Serum Not Detected
[2016-12-28 18:27] LABS: ALT 22 U/L (9-52); AST 15 U/L (14-36); Alkaline Phosphatase 74 U/L (38-126); Anion Gap 9 mmol/L; Blood Urea Nitrogen 14 mg/dL (7-17); Calcium 9.3 mg/dL (8.4-10.2); Carbon Dioxide 24 mmol/L (22-30); Chloride 108 mmol/L (98-107); Glucose 94 mg/dL (74-99); Magnesium 1.7 mg/dL (1.6-2.3); Non-African American GFR(MDRD) >60 (>60 ml/min/1.73 sqM); Phosphorus 3.3 mg/dL (2.5-4.5); Potassium 3.6 mmol/L (3.5-5.1); Sodium 141 mmol/L (137-145); Total Bilirubin 0.2 mg/dL (0.2-1.3); Total Protein 6.5 g/dL (6.3-8.2)
--- NOTE | 2016-12-28 18:38 | CT ---
EXAMINATION TYPE: CT brain wo con DATE OF EXAM: 12/28/2016 COMPARISON: 08/27/2016 HISTORY: Patient complains of headache post first time seizure today. CT DLP: 782.6 mGycm. Automated Exposure Control for Dose Reduction was Utilized. TECHNIQUE: CT scan of the head is performed without contrast. FINDINGS: Ventricles have normal size. There is no mass effect nor midline shift. There is no sign of intracranial hemorrhage. The calvarium is intact. CONCLUSION: Negative CT scan of the brain. No change.
--- NOTE | 2016-12-28 20:33 | ED ---
Seizure HPI - General Chief Complaint: Seizure Stated Complaint: Seizure Time Seen by Provider: 12/28/16 17:37 Source: patient Mode of arrival: wheelchair Limitations: no limitations - History of Present Illness Initial Comments: This 41-year-old white female presents with the complaint of a seizure. She apparently was here earlier in the day for possible seizure and evaluated and eventually discharged home. She states that today she was standing when she apparently had a seizure and fell and hit her occiput. She complains of a slight headache in her occipital region. She cannot remember the event. The later does present and relates that he witnessed both events. He states that tonight she had approximately 3 episodes just right in a row each lasting approximately 20-30 seconds. She apparently was shaking her arms and legs. She was somewhat coherent in between the events but not during the event. She apparently has never had any seizures previously. She denies any other traumatic injuries. Her workup earlier did show some marijuana in her system the drug screen was otherwise negative. The laboratory was essentially within normal limits. She states that currently she feels somewhat nauseated, slightly "foggy", and has a decreased energy level. She denies any recent infections or fevers. No other complaints or modifying factors. - Related Data Home Medications Medication Instructions Recorded Confirmed Metoprolol Tartrate [Lopressor] 25 mg PO BID 09/12/16 12/28/16 Aspirin EC [Ecotrin Low Dose] 81 mg PO DAILY 12/28/16 12/28/16 Fluticasone Nasal [place] [Flonase 2 spr EA NOSTRIL DAILY PRN 12/28/16 12/28/16 Nasal [place]] Allergies Allergy/AdvReac Type Severity Reaction Status Date / Time No Known Allergies Allergy Verified 12/28/16 18:11 Review of Systems ROS Statement: Those systems with pertinent positive or pertinent negative responses have been documented in the HPI. ROS Other: All systems not noted in ROS Statement are negative. Past Medical History Past Medical History: Fibromyalgia Additional Past Medical History / Comment(s): migraines, elevated HR History of Any Multi-Drug Resistant Organisms: None Reported Past Surgical History: Cholecystectomy Additional Past Surgical History / Comment(s): lab band 2010, invetro Past Psychological History: Depression Smoking Status: Never smoker Past Alcohol Use History: None Reported Past Drug Use History: None Reported - Past Family History Mother Family Medical History: Cancer Additional Family Medical History / Comment(s): Breast CA Brother(s) Family Medical History: No Reported History General Exam - General Exam Comments Initial Comments: GENERAL: The patient is well nourished and well hydrated. VITAL SIGNS: Heart rate, blood pressure, respiratory rate reviewed as recorded in nurse's notes. EYES: Pupils are round and reactive. Extraocular movements are intact. No conjunctival / lid redness or swelling. ENT: No external evidence of injury, swelling, or ecchymosis. Airway is patent. Throat is clear. there is some tenderness present to the occipital region of the scalp. NECK: Nontender. No swelling or evidence of injury. No subcutaneous emphysema. Trachea is midline. No thyroid mass. HEART: Regular rate and rhythm. Good peripheral pulses. LUNGS/CHEST: Breath sounds clear and equal bilaterally. No rales, rhonchi, or wheezes. No ecchymosis, subcutaneous emphysema, or tenderness. ABDOMEN: Abdomen soft without tenderness. No palpable masses or organomegaly. No peritoneal signs. No abdominal wall swelling or ecchymosis. EXTREMITIES: No extremity tenderness. Normal muscle tone and function. No thoracolumbar tenderness. NEUROLOGIC: Sensation is grossly intact. Cranial nerve exam reveals face is symmetrical, tongue is midline, speech is clear. SKIN: No abrasions or ecchymosis is noted. No induration or masses noted. PSYCHIATRIC: Alert and oriented. Appropriate behavior and judgment. Limitations: no limitations Course Vital Signs 12/28/16 17:27 Temperature 98.2 F Pulse Rate 74 Respiratory 16 Rate Blood Pressure 121/85 O2 Sat by Pulse 98 Oximetry Medical Decision Making - Medical Decision Making the patient was seen and examined. All diagnostics were reviewed. The EKG shows a normal sinus rhythm at a rate of 66. There is no acute ST-T wave changes identified. The CT interval is 148, respiration is 78, and the QTC intervals 402. She also had a computed tomography scan of her brain which does not show any acute processes. Her laboratory is also essentially within normal limits are unremarkable. She did receive 1 mg of Ativan in the ER. No further seizures were noted. Seizure precautions were taken. His felt dissociative benefit from admission to the hospital for further evaluation and treatment. She is agreeable. Case is discussed with internal medicine and they're agreeable to admission.. They would like a drug screen and urinalysis completed at this time. - Lab Data Result diagrams: 12/28/16 18:00 12/28/16 18:00 Lab Results 12/28/16 12/28/16 12/28/16 Range/Units 18:00 18:00 18:03 WBC 9.3 (3.8-10.6) k/uL RBC 4.02 (3.80-5.40) m/uL Hgb 12.6 (11.4-16.0) gm/dL Hct 38.6 (34.0-46.0) % MCV 96.0 (80.0-100.0) fL MCH 31.3 (25.0-35.0) pg MCHC 32.6 (31.0-37.0) g/dL RDW 13.7 (11.5-15.5) % Plt Count 356 (150-450) k/uL Neutrophils % 68 % Lymphocytes % 23 % Monocytes % 6 % Eosinophils % 1 % Basophils % 0 % Neutrophils # 6.3 (1.3-7.7) k/uL Lymphocytes # 2.2 (1.0-4.8) k/uL Monocytes # 0.5 (0-1.0) k/uL Eosinophils # 0.1 (0-0.7) k/uL Basophils # 0.0 (0-0.2) k/uL Sodium 141 (137-145) mmol/L Potassium 3.6 (3.5-5.1) mmol/L Chloride 108 H (98-107) mmol/L Carbon Dioxide 24 (22-30) mmol/L Anion Gap 9 mmol/L BUN 14 (7-17) mg/dL Creatinine 0.77 (0.52-1.04) mg/dL Est GFR (MDRD) Af Amer >60 (>60 ml/min/1.73 sqM) Est GFR (MDRD) Non-Af >60 (>60 ml/min/1.73 sqM) Glucose 94 (74-99) mg/dL POC Glucose (mg/dL) 88 (75-99) mg/dL POC Glu [employer] ID Adeola Gardiner Calcium 9.3 (8.4-10.2) mg/dL Phosphorus 3.3 (2.5-4.5) mg/dL Magnesium 1.7 (1.6-2.3) mg/dL Total Bilirubin 0.2 (0.2-1.3) mg/dL AST 15 (14-36) U/L ALT 22 (9-52) U/L Alkaline Phosphatase 74 (38-126) U/L Total Protein 6.5 (6.3-8.2) g/dL Albumin 3.7 (3.5-5.0) g/dL HCG, Qual Not Detected Disposition Clinical Impression: New onset seizure, Head injury, Recurrent seizures, Marijuana abuse Disposition: ADMITTED IP TO THIS [facility] Condition: Fair Time of Disposition: 20:33 Decision Date: 12/28/16 Decision Time: 20:33
[2016-12-28] MEDS ORDERED: NALOXONE 0.4 MG/ML 1 ML VIAL IV PRN (20:34)
[2016-12-28] MEDS ORDERED: LORazepam 2 MG/ML INJ IV PRN (20:34)
[2016-12-28] MEDS ORDERED: FLUTICASONE 50MCG/SPRAY NASAL 16GM EA NOSTRIL PRN (20:37)
[2016-12-28 21:22] LABS: Appearance,Urine Turbid (Clear); Bilirubin,Urine Negative (Negative); Glucose,Urine (UA) Negative (Negative); Ketones,Urine Negative (Negative); Leukocyte Esterase,Urine Trace (Negative); Nitrite,Urine Negative (Negative); Particle Count 3365; Protein,Urine 2+ (Negative); RBC,Urine >182 /hpf (0-5); UA Billing (MACRO vs. MICRO) MICRO; Urobilinogen,Urine <2.0 mg/dL (<2.0); WBC,Urine >182 /hpf (0-5)
[2016-12-28] MEDS: ACETAMINOPHEN TAB 325 MG TAB PO PRN (21:41)
[2016-12-28] MEDS: METOPROLOL TARTRATE 25 MG TAB PO SCH (21:42)
[2016-12-29] MEDS: ENOXAPARIN 40 MG/0.4 ML SYRINGE SQ SCH (08:57)
[2016-12-29] MEDS: ASPIRIN 81 MG PO SCH (08:57)
[2016-12-29] MEDS: METOPROLOL TARTRATE 25 MG TAB PO SCH ×2 (08:58→19:55)
[2016-12-29] MEDS ORDERED: PANTOPRAZOLE 40 MG/10 ML VIAL IV SCH (09:00)
[2016-12-29] MEDS: ACETAMINOPHEN TAB 325 MG TAB PO PRN ×2 (11:58→19:55)
--- NOTE | 2016-12-29 14:32 | US ---
EXAMINATION TYPE: US carotid duplex BILAT DATE OF EXAM: 12/29/2016 COMPARISON: NONE CLINICAL HISTORY: seizure. EXAM MEASUREMENTS: RIGHT: Peak Systolic Velocity (PSV) cm/sec ----- Right CCA: 66.1 ----- Right ICA: 83.8 ----- Right ECA: 124.0 ICA/CCA ratio: 1.3 RIGHT: End Diastole cm/sec ----- Right CCA: 19.2 ----- Right ICA: 30.5 ----- Right ECA: 19.5 LEFT: Peak Systolic Velocity (PSV) cm/sec ----- Left CCA: 90.3 ----- Left ICA: 101.6 ----- Left ECA: 153.1 ICA/CCA ratio: 1.1 LEFT: End Diastole cm/sec ----- Left CCA: 28.9 ----- Left ICA: 46.7 ----- Left ECA: 25.3 VERTEBRALS (direction of flow): Right Vertebral: Antegrade Left Vertebral: Antegrade Rhythm: Normal Minimal amount of plaque visualized bilaterally. Elevated velocities visualized in the left ECA. Grayscale, color Doppler, spectral Doppler imaging performed of the carotid arteries. IMPRESSION: No hemodynamic significant stenosis of the proximal internal carotid arteries bilaterall y by Doppler criteria, an indirect measurement of carotid stenosis
--- NOTE | 2016-12-29 15:36 | P.HPIM ---
History of Present Illness H&P Date: 12/29/16 Chief Complaint: Seizure 41 years old female patient of Dr. Owen., h/o of migraine presents with multiple episode of seizures at home that started when she woke up this morning. Patient had a metallic taste in her mouth and was found on the ground when she woke up. According to the patient had multiple tonic clonic like seizure episodes lasting 20-30 seconds with periods Of consciousness in between. Patient could not recall the event. Patient denies any previous history of seizures, history of stroke, hypoglycemia, electrolyte abnormality, headaches, dizziness or lightheadedness. Patient felt weak on her right upper extremity and lower extremity post the seizure episode. She had multiple seizure episode in the ER and was admitted for further workup. CBC, BMP were unremarkable. Urine analysis suggested UTI and patient was initiated on Rocephin. Lactic acid was normal. Urine drug screen was positive for marijuana. Patient denies any history of alcohol or drug abuse. Patient is started on Ativan when necessary seizures, neurology consulted, seizure precaution and fall precautions to be taken. Sepsis most likely source. Review of Systems Constitutional: Denies chills, Denies fever, Denies lethargy, Denies malaise, Denies poor appetite, Denies weakness, Denies weight loss Eyes: denies decreased vision, denies diplopia, denies discharge, denies pain Ears: deny: decreased hearing Ears, nose, mouth and throat: Denies dental pain, Denies headache, Denies nasal discharge, Denies nose pain Cardiovascular: Denies chest pain, Denies decreased exercise tolerance, Denies edema, Denies high blood pressure, Denies irregular heart beat, Denies palpitations, Denies paroxysmal nocturnal dyspnea, Denies rapid heart beat, Denies shortness of breath Respiratory: Denies congestion, Denies cough, Denies cough with sputum, Denies dyspnea, Denies home oxygen, Denies wheezing Gastrointestinal: Denies abdominal pain, Denies change in bowel habits, Denies coffee ground emesis, Denies early satiety, Denies excessive gas, Denies heartburn, Denies hematemesis, Denies hematochezia, Denies loss of appetite, Denies nausea, Denies vomiting Genitourinary: Denies dysuria, Denies flank pain, Denies kidney stones, Denies menorrhagia, Denies urgency, Denies urinary frequency Musculoskeletal: Denies gait dysfunction, Denies limitation of motion, Denies morning stiffness, Denies muscle cramps Integumentary: Denies rash, Denies wounds, Denies brittle nails, Denies change in hair/nails, Denies darkening of skin Neurological: Denies balance difficulties, Denies change in speech, Denies double vision, Denies gait dysfunction, Denies loss of vision, Denies motor disturbance, Denies numbness, Denies paralysis, Denies paresthesias, endorses seizures Psychiatric: Denies anxiety, Denies depression Endocrine: Denies excessive sweating, Denies excessive thirst, Denies high blood sugars, Denies palpitations Hematologic/Lymphatic: Denies easy bruising, Denies lymphadenopathy Past Medical History Past Medical History: Fibromyalgia Additional Past Medical History / Comment(s): migraines, elevated HR History of Any Multi-Drug Resistant Organisms: None Reported Past Surgical History: Cholecystectomy Additional Past Surgical History / Comment(s): lab band 2009, invetro Past Anesthesia/Blood Transfusion Reactions: Postoperative Nausea & Vomiting ( PONV) Past Psychological History: No Psychological Hx Reported Smoking Status: Never smoker Past Alcohol Use History: None Reported Past Drug Use History: None Reported - Past Family History Mother Family Medical History: Cancer (breast cancer), CVA/TIA (at the age of 32) Additional Family Medical History / Comment(s): Breast CA Brother(s) Family Medical History: No Reported History Father Additional Family Medical History / Comment(s): father of suicide . She has 2 year old boy with no significant medical problems Medications and Allergies Home Medications Medication Instructions Recorded Confirmed Type Metoprolol Tartrate [Lopressor] 25 mg PO BID 09/12/16 12/28/16 History Aspirin EC [Ecotrin Low Dose] 81 mg PO DAILY 12/28/16 12/28/16 History Allergies Allergy/AdvReac Type Severity Reaction Status Date / Time No Known Allergies Allergy Verified 12/28/16 21:43 Physical Exam Vitals: Vital Signs Temp Pulse Pulse Resp BP BP Pulse Ox 12/29/16 11:53 67 18 12/29/16 11:51 96.7 F L 67 18 100/59 98 12/29/16 08:00 97.6 F 58 L 14 129/69 99 12/29/16 04:00 97.8 F 67 16 120/72 96 12/28/16 22:42 65 16 12/28/16 22:40 97.3 F L 65 16 129/62 99 12/28/16 21:04 97.5 F L 69 17 126/67 99 12/28/16 17:27 98.2 F 74 16 121/85 98 Intake and Output 12/28/16 12/29/16 12/29/16 22:59 06:59 14:59 Intake Total 320 400 236 Output Total 200 Balance 320 200 236 Intake: IV 400 Sodium Chloride 0.9% 1, 400 000 ml @ 100 mls/hr IV . Q10H STA Rx#:[id number] Oral 320 236 Output: Urine 200 Other: Voiding Method Toilet Toilet Toilet # Voids 2 Weight 113.398 kg 120 kg 120 kg Patient Weight 12/30/16 06:59 Weight 120 kg - Constitutional General appearance: cooperative, no acute distress, obese - EENT Eyes: anicteric sclerae, PERRLA, normal appearance ENT: hearing grossly normal - Neck Neck: no lymphadenopathy, normal ROM, no other, no rigidity, no stridor, no thyromegaly - Respiratory Respiratory: bilateral: CTA, negative: diminished, dullness, rales, rhonchi - Cardiovascular Rhythm: regular Heart sounds: normal: S1, S2 Abnormal Heart Sounds: no systolic murmur, no diastolic murmur, no rub, no S3 Gallop, no S4 Gallop, no click, no other - Gastrointestinal General gastrointestinal: normal bowel sounds, soft - Integumentary Integumentary: no rash - Neurologic Neurologic: CNII-XII intact, no motor or sensory deficit, normal tone, no seizure or tremor - Musculoskeletal Musculoskeletal: gait normal, strength equal bilaterally - Psychiatric Psychiatric: A&O x's 3, appropriate affect Results CBC & Chem 7: 12/28/16 18:00 12/28/16 18:00 Labs: Abnormal Lab Results - Last 24 Hours (Table) 12/28/16 12/28/16 Range/Units 18:00 21:07 Chloride 108 H (98-107) mmol/L Urine Appearance Turbid H (Clear) Urine Protein 2+ H (Negative) Urine Blood Large H (Negative) Ur Leukocyte Esterase Trace H (Negative) Urine RBC >182 H (0-5) /hpf Urine WBC >182 H (0-5) /hpf Urine WBC Clumps Many H (None) /hpf U Marijuana (THC) Screen Detected H (NotDetected) Thrombosis Risk Factor Assmnt - DVT/VTE Prophylaxis DVT/VTE Prophylaxis: Pharmacologic Prophylaxis ordered - Choose All That Apply Any of the Below Risk Factors Present?: Yes Each Factor Represents 1 point: Obesity (BMI >25) Other Risk Factors: No Other congenital or acquired thrombophilia - If yes, enter type in comment: No Thrombosis Risk Factor Assessment Total Risk Factor Score: 1 Thrombosis Risk Factor Assessment Level: Low Risk Assessment and Plan Plan: 1. New onset seizure- likely cause sepsis, electrolyte abnormality and hypoglycemia ruled out, complicated migraine unlikely, carotid Dopplers ordered to rule out stroke, echo ordered. CT head negative for any acute bleed, patient has significant family history of stroke and her mom at the age of 32. No neck stiffness to be concerned about meningitis Continue seizure precautions and fall precautions. Neurology consulted, continue Ativan 1 mg every 15 minutes when necessary seizures. Patient to be initiated on Keppra if okay with neurology. EEG ordered #2 supraventricular tachycardia- continue home dose of metoprolol #3 migraine- continue Tylenol 325 when necessary headache #4 DVT prophylaxis Lovenox 40 mg subcu daily #5 GI prophylaxis- continue protonic 40 mg daily #6 CODE STATUS full code patient will be inpatient for 2 nights
[2016-12-29] MEDS: cefTRIAXone IN SWFI 1,000 MG/10 ML SYRINGE IVP SCH (16:30)
--- NOTE | 2016-12-29 20:33 | EEG ---
ELECTROENCEPHALOGRAM REPORT DATE OF EE12/29/2016. REFERRING PHYSICIAN: Dr. Morgan. INDICATION FOR EXAMINATION: This patient is a 41-year-old female being evaluated for possible seizure like event. Patient also with mild headache. AGE: [age]. EEG FINDINGS: A routine 21 channel awake digital EEG recording was accomplished utilizing the 10-20 international system with bipolar and referential montages. The background activity in the most alert resting state consists of a low to medium amplitude, fairly well developed and well sustained 7-8 Hz activity over the posterior head regions. This posterior rhythm attenuates to eye opening. There is a small amount of low amplitude 18-20 Hz beta activity seen maximally over the anterior head regions. Muscle and movement artifact was observed on a few occasions during the tracing. Hyperventilation failed to add any additional information to the tracing. No further activation was noted. Photic stimulation at flash frequencies of 2-30 Hz produced a minimal occipital driving response. No epileptiform discharges were seen. IMPRESSION: This EEG is within normal limits for the patient's age. The EEG failed to reveal any focal, lateralized, or epileptiform abnormalities. Clinical correlation is recommended. MMODL / IJN: [id number] /
[2016-12-29] MEDS ORDERED: levETIRAcetam IV 750 MG in SODIUM CHLORIDE 0.9% 100 ML IVPB STA (20:58)
--- NOTE | 2016-12-29 21:08 | P.CNNES ---
History of Present Illness Consult date: 12/29/16 History of Present Illness: The patient is a 41-year-old right-handed white female who states that 2 days ago she had multiple episodes where she woke up out of bed and couldn't speak and had some jerking of the body. Her reports that her body would become stiff and her arms would curl up he did not notice her face. EMS came and took her to the hospital within 1 hour. She states that she was awake by then. She was discharged in the hospital and then returned again to the hospital when she had further episodes. During the episodes she would shake and sometimes she was aware of it and sometimes not. There is no oral trauma or incontinence. She was admitted to the with new onset seizure. She had a CAT scan of the brain which was negative and a carotid ultrasound which was normal. Apparently she has not had any further episodes in the hospital. She had a drug screen which was positive for marijuana. She had an EEG which was normal Review of Systems Constitutional: Denies chills, Denies fever Ears, nose, mouth and throat: Reports as per HPI Cardiovascular: Denies chest pain, Denies shortness of breath Respiratory: Denies cough Musculoskeletal: Denies myalgias Neurological: Denies numbness, Denies weakness Psychiatric: Denies anxiety, Denies depression Past Medical History Past Medical History: Fibromyalgia Additional Past Medical History / Comment(s): migraines, elevated HR History of Any Multi-Drug Resistant Organisms: None Reported Past Surgical History: Cholecystectomy Additional Past Surgical History / Comment(s): lab band 2010, invetro Past Anesthesia/Blood Transfusion Reactions: Postoperative Nausea & Vomiting ( PONV) Past Psychological History: No Psychological Hx Reported Smoking Status: Never smoker Past Alcohol Use History: None Reported Past Drug Use History: None Reported - Past Family History Mother Family Medical History: Cancer (breast cancer), CVA/TIA (at the age of 32) Additional Family Medical History / Comment(s): Breast CA Brother(s) Family Medical History: No Reported History Father Additional Family Medical History / Comment(s): father of suicide . She has 2 year old boy with no significant medical problems Medications and Allergies Home Medications Medication Instructions Recorded Confirmed Type Metoprolol Tartrate [Lopressor] 25 mg PO BID 09/12/16 12/28/16 History Aspirin EC [Ecotrin Low Dose] 81 mg PO DAILY 12/28/16 12/28/16 History Allergies Allergy/AdvReac Type Severity Reaction Status Date / Time No Known Allergies Allergy Verified 12/28/16 21:43 Physical Examination - Vital Signs Vital Signs: Vital Signs Temp Pulse Pulse Resp BP BP Pulse Ox 12/29/16 16:00 96.8 F L 67 20 148/80 99 12/29/16 11:53 67 18 12/29/16 11:51 96.7 F L 67 18 100/59 98 12/29/16 08:00 97.6 F 58 L 14 129/69 99 12/29/16 04:00 97.8 F 67 16 120/72 96 12/28/16 22:42 65 16 12/28/16 22:40 97.3 F L 65 16 129/62 99 12/28/16 21:04 97.5 F L 69 17 126/67 99 Intake and Output 12/29/16 12/29/16 12/29/16 06:59 14:59 22:59 Intake Total 400 472 220 Output Total 200 Balance 200 472 220 Intake: IV 400 Sodium Chloride 0.9% 1, 400 000 ml @ 100 mls/hr IV . Q10H STA Rx#:[id number] Oral 472 220 Output: Urine 200 Other: Voiding Method Toilet Toilet Toilet # Voids 2 1 1 Weight 120 kg 120 kg 120 kg Patient Weight 12/30/16 06:59 Weight 120 kg - Constitutional General appearance: average body habitus - EENT EENT: PERRL - Respiratory Respiratory: lungs clear - Cardiovascular Cardiovascular: regular rate - Integumentary Integumentary: normal - Neurologic Mental status she was awake alert and oriented chance of questions appropriately there is no a aphasia or dysarthria Cranial nerve examination: PERRL, EOMI, VFF, face symmetric, tongue midline, intact Speech examination: intact Detailed motor examination: grossly full strength in all extremities Detailed sensory examination: intact Cerebellar examination: other (There was no dysmetria) Results - Laboratory Findings CBC and BMP: 12/28/16 18:00 12/28/16 18:00 Abnormal Lab Findings: Abnormal Labs 12/28/16 12/28/16 18:00 21:07 Chloride 108 H Urine Appearance Turbid H Urine Protein 2+ H Urine Blood Large H Ur Leukocyte Esterase Trace H Urine RBC >182 H Urine WBC >182 H Urine WBC Clumps Many H U Marijuana (THC) Screen Detected H Assessment and Plan (1) New onset seizure Current Visit: Yes Status: Acute SNOMED Code(s): 55528008 Plan: The patient is a 41-year-old woman with what appears to be possible new onset seizures. She was made aware of the [place] law regarding driving and seizures and told that per [place] law she cannot operate a motorized vehicle until spell free for 6 months. Since she is not contemplating any future pregnancies she was advised to start anticonvulsant treatment with Keppra and she will be loaded with Keppra 750 mg IV and she can continue maintenance dose of 750 twice a day she will also need an MRI of the brain given her history of new onset seizure
[2016-12-29] MEDS ORDERED: diphenhydrAMINE 50 MG/ML 1 ML VIAL IVP PRN (23:08)
[2016-12-30 06:11] VITALS: RESP 16
[2016-12-30] MEDS ORDERED: PANTOPRAZOLE 40 MG TABLET PO SCH (07:30)
[2016-12-30] MEDS: levETIRAcetam 250 MG TAB PO SCH ×2 (09:04→12:36)
[2016-12-30] MEDS: ASPIRIN 81 MG PO SCH (09:08)
[2016-12-30] MEDS: METOPROLOL TARTRATE 25 MG TAB PO SCH (09:08)
[2016-12-30] MEDS: ENOXAPARIN 40 MG/0.4 ML SYRINGE SQ SCH (09:08)
--- NOTE | 2016-12-30 10:12 | ECHOF ---
Referral Reason:cva MEASUREMENTS -------- HEIGHT: 162.6 cm WEIGHT: 120.2 kg BP: RVIDd: 2.7 cm (< 3.3) IVSd: 1.1 cm (0.6 - 1.1) LVIDd: 5.2 cm (3.9 - 5.3) LVPWd: 0.8 cm (0.6 - 1.1) IVSs: 1.5 cm LVIDs: 3.1 cm LVPWs: 1.5 cm LAESV Index (A-L): 19.98 ml/m Ao Diam: 2.8 cm (2.0 - 3.7) AV Cusp: 1.8 cm (1.5 - 2.6) LA Diam: 3.0 cm (2.7 - 3.8) MV EXCURSION: 22.213 mm (> 18.000) MV EF SLOPE: 116 mm/s (70 - 150) EPSS: 0.5 cm MV E Frandy: 0.62 m/s MV DecT: 245 ms MV A Frandy: 0.54 m/s MV E/A Ratio: 1.15 RAP: 5.00 mmHg RVSP: 20.47 mmHg FINDINGS -------- Sinus rhythm. Morbid Obesity The left ventricular size is normal. There is mild concentric left ventricular hypertrophy. Overa ll left ventricular systolic function is normal with, an EF between 55 - 60 %. The right ventricle is normal in size. Normal LA size by volume 22+/-6 ml/m2. The right atrial size is normal. The aortic valve is trileaflet, and appears structurally normal. No aortic stenosis or regurgitation. Mild mitral regurgitation is present. Mild tricuspid regurgitation present. There is no evidence of pulmonary hypertension. The right v entricular systolic pressure, as measured by Doppler, is 20.47mmHg. Trace/mild (physiologic) pulmonic regurgitation. The aortic root size is normal. There is no pericardial effusion. CONCLUSIONS -------- 1. Morbid Obesity 2. The left ventricular size is normal. 3. There is mild concentric left ventricular hypertrophy. 4. Overall left ventricular systolic function is normal with, an EF between 55 - 60 %. 5. The aortic valve is trileaflet, and appears structurally normal. No aortic stenosis or regurgitati on. 6. Mild mitral regurgitation is present. 7. Mild tricuspid regurgitation present. 8. There is no evidence of pulmonary hypertension. 9. The right ventricular systolic pressure, as measured by Doppler, is 20.47mmHg. 10. Trace/mild (physiologic) pulmonic regurgitation. 11. The aortic root size is normal. 12. There is no pericardial effusion. DRY WALL PLASTERER: Thania Larson RDCS
--- NOTE | 2016-12-30 10:25 | MR ---
EXAMINATION TYPE: MR brain wo con DATE OF EXAM: 12/30/2016 9:46 AM COMPARISON: NONE HISTORY: New onset seizure Multiplanar and multispin-echo imaging of the brain was performed . The ventricles, basal cisterns and sulci overlying the cerebral convexities are within normal limits. There is no evidence for midline shift or mass effect. Acute intracranial hemorrhage or extra-axial collection is not evident. 2 or 3 foci of increased signal within the deep white matter of both cerebral hemispheres too small t o characterize. No acute edema is identified. Chronic maxillary sinusitis with mucous retention cysts. Small amount of fluid within the right-sided mastoid air cells compatible to mild chronic mastoiditis. IMPRESSION: 1. 2 or 3 foci of increased signal within the deep white matter of both cerebral hemispheres too sma ll to characterize.
[2016-12-30] MEDS ORDERED: BUTALB/APAP/CAFF 50-325-40MG TAB PO STA (12:16)
[2016-12-30 12:37] LABS: Basophils % (A) 1 %; CHCM 33.4; Eosinophils % (A) 0 %; HCT 40.4 % (34.0-46.0); HDW 2.69; HGB 13.2 gm/dL (11.4-16.0); Luc # (Auto) 0.16; Luc % (Auto) 2; Lymphocytes # (A) 2.2 k/uL (1.0-4.8); Lymphocytes % (A) 30 %; MCH 31.5 pg (25.0-35.0); MCHC 32.7 g/dL (31.0-37.0); MCV 96.4 fL (80.0-100.0); Mean Platelet Volume 6.1; Monocytes # (A) 0.4 k/uL (0-1.0); Monocytes % (A) 6 %; Neutrophils # (A) 4.5 k/uL (1.3-7.7); Neutrophils % (A) 62 %; RDW 12.8 % (11.5-15.5); WBC 7.3 k/uL (3.8-10.6); WBC (Perox) 7.48
[2016-12-30] MEDS: cefTRIAXone IN SWFI 1,000 MG/10 ML SYRINGE IVP SCH (12:37)
[2016-12-30 12:48] LABS: Anion Gap 7 mmol/L; Blood Urea Nitrogen 14 mg/dL (7-17); Calcium 9.2 mg/dL (8.4-10.2); Carbon Dioxide 27 mmol/L (22-30); Chloride 106 mmol/L (98-107); Glucose 80 mg/dL (74-99); Non-African American GFR(MDRD) >60 (>60 ml/min/1.73 sqM); Sodium 140 mmol/L (137-145)
[2016-12-30 13:47] VITALS: BP 112/62; PULSE 66; TEMP 97
--- NOTE | 2016-12-30 14:44 | P.DS ---
Providers Date of admission: 12/28/16 20:34 Expected date of discharge: 12/30/16 Attending physician: Landen Morgan Consults: 12/28/16 20:35 Consult Physician Urgent Consulting Provider: Thuy Cordon Consult Reason/Comments: New onset seizure Do you want consulting provider notified?: Yes Primary care physician: [facility] Hospital Course: 41 years old female patient of Dr. Owen., h/o of migraine presents with multiple episode of seizures at home that started when she woke up this morning. Patient had a metallic taste in her mouth and was found on the ground when she woke up. According to the patient had multiple tonic clonic like seizure episodes lasting 20-30 seconds with periods Of consciousness in between. Patient could not recall the event. Patient denies any previous history of seizures, history of stroke, hypoglycemia, electrolyte abnormality, headaches, dizziness or lightheadedness. Patient felt weak on her right upper extremity and lower extremity post the seizure episode. She had multiple seizure episode in the ER and was admitted for further workup. CBC, BMP were unremarkable. Urine analysis suggested UTI and patient was initiated on Rocephin. Lactic acid was normal. Urine drug screen was positive for marijuana. Patient denies any history of alcohol or drug abuse. Patient is started on Ativan when necessary seizures, neurology consulted, seizure precaution and fall precautions to be taken. Sepsis most likely source. 12/30: Patient was seen by Dr. Cordon for new onset seizures. She was instructed regarding no driving for 6 months and patient was started with Keppra with plan for a maintenance dose of 750 mg twice daily. MRI of the brain shows 2 or 3 foci of increased signal within the deep white matter of both cerebral hemispheres too small to characterize. Carotid ultrasound showed no hemodynamically significant stenosis bilaterally. EEG is within normal limits and failed to reveal focal, lateralized or epileptiform abnormalities. Patient had witnessed seizure activity last evening when she took her Keppra and that she was afraid to take Keppra again. Patient has agreed that she will take it today and patient will be monitored for 2 hours and if she is doing fine , discharge home. Fioricet has been added for headache. Patient will be discharged later today in stable condition. Discharge diagnoses: 1. New onset seizure- likely cause sepsis, electrolyte abnormality and hypoglycemia ruled out, complicated migraine unlikely #2 supraventricular tachycardia #3 migraine Discharge plan: Return home Impression and plan of care have been directed as dictated by the signing physician. Raquel Andujar nurse practitioner acting as scribe for signing physician. Patient Condition at Discharge: Good Plan - Discharge Summary New Discharge Prescriptions: New Butalb/APAP/Caff 50-325-40Mg [Fioricet 50-325-40] 1 each PO Q6HR #30 tab Cephalexin [Keflex] 500 mg PO Q8HR #15 cap levETIRAcetam [Keppra] 750 mg PO Q12H #60 tab Continue Metoprolol Tartrate [Lopressor] 25 mg PO BID Aspirin EC [Ecotrin Low Dose] 81 mg PO DAILY Discharge Medication List Metoprolol Tartrate [Lopressor] 25 mg PO BID 09/12/16 [History] Aspirin EC [Ecotrin Low Dose] 81 mg PO DAILY 12/28/16 [History] Butalb/APAP/Caff 50-325-40Mg [Fioricet 50-325-40] 1 each PO Q6HR #30 tab [Rx] Cephalexin [Keflex] 500 mg PO Q8HR #15 cap 12/30/16 [Rx] levETIRAcetam [Keppra] 750 mg PO Q12H #60 tab 12/30/16 [Rx] Follow up Appointment(s)/Referral(s): Vivian Owen MD [Primary Care Provider] - 1 Week Thuy Cordon MD [STAFF PHYSICIAN] - 1 Week Activity/Diet/Wound Care/Special Instructions: No driving for 6 months. Discharge Disposition: HOME SELF-CARE
== END 2016-12-30 16:20 | disposition home or self-care (01) | DRG 101 ==
LOC: EC 17:10 → 6SEL 20:34
PROVIDERS: ADMIT Internal Medicine Geriatric Medicine; ATTEND Internal Medicine Geriatric Medicine
DX: G40.909 Epilepsy, unspecified, not intractable, without status epilepticus (principal); I47.1 Supraventricular tachycardia; S09.90XA Unspecified injury of head, initial encounter; F12.10 Cannabis abuse, uncomplicated; G43.909 Migraine, unspecified, not intractable, without status migrainosus; M79.7 Fibromyalgia; F32.9 Major depressive disorder, single episode, unspecified; Z79.82 Long term (current) use of aspirin; Z79.899 Other long term (current) drug therapy; W18.30XA Fall on same level, unspecified, initial encounter; Y92.9 Unspecified place or not applicable
CPT/HCPCS: 36415; 70450; 70551; 80048; 80053; 80306; 81001; 82553; 83605; 83735; 84100; 84146; 84703; 85025; 93005; 93306; 93880; 95819; 96360; 96361; 96374; 96375; 99285

== ENCOUNTER → 2017-03-07 | Outpatient (CLI) | payer BC ==
[2017-03-07 15:05] VITALS: BP 166/85; PULSE 71; RESP 15; TEMP 98.8; BMI 44.9
--- NOTE | 2017-03-07 16:01 | P.HPBAR ---
Bariatric H&P - History & Physicial H&P Date: 03/07/17 History & Physicial: Visit/CC: sleeve consult Patient initial contact: Initial weight: 113.398 kg Initial weight in pounds: 250.00 Height: 5 ft 4.5 in Initial BMI: 42.2 Last weight: Current weight: 120.656 kg Current weight in pounds: 266.00 Current BMI: 44.9 [place] body weight (based on NIH guidelines): 55.565 kg Excess body weight loss: The patient is a 41 year-old F who presents for Bariatric Assessment. This is a 9-year-old female who presents today for LAP-BAND follow-up. Not been seen for approximately 4 years. Her LAP-BAND was emptied approximate 4 years ago. She had chronic issues with dysphagia. Patient has had weight gain. She wishes to convert to sleeve gastrectomy. Her current weight is 266 pounds. Her BMI is 45. Past Medical History Past Medical History: Fibromyalgia Additional Past Medical History / Comment(s): migraines, elevated HR, seizures of uko in December 2016, History of Any Multi-Drug Resistant Organisms: None Reported Past Surgical History: Cholecystectomy Additional Past Surgical History / Comment(s): lab band 2009, invetro fertilization Past Anesthesia/Blood Transfusion Reactions: Postoperative Nausea & Vomiting ( PONV) Additional Past Anesthesia/Blood Transfusion Reaction / Comm: no hx of blood transfusion Past Psychological History: No Psychological Hx Reported Smoking Status: Never smoker Past Alcohol Use History: None Reported Past Drug Use History: None Reported - Past Family History Mother Family Medical History: Cancer Additional Family Medical History / Comment(s): Breast CA Brother(s) Family Medical History: No Reported History Father Additional Family Medical History / Comment(s): father of suicide . She has 2 year old boy with no significant medical problems Surgical - Exam Vital Signs Temp Pulse Resp BP 98.8 F 71 15 166/85 03/07/17 14:43 03/07/17 14:43 03/07/17 14:43 03/07/17 14:43 - General well developed, no distress - Eyes PERRL - ENT normal pinna - Neck no masses - Respiratory normal expansion - Cardiovascular Rhythm: regular - Abdomen Abdomen: soft, non tender Bariatric Assessment & Plan Plan: RBC with BMI 45. The patient has had pain due to inability to adjust her band. She's had chronic problems dysphagia and reflux. We will attempt authorize her for sleeve gastrectomy. Patient follow-up in one month. Bariatric Checklist Checklist: Plan: Checklist: EGD: 1. Hiatal hernia: 2. H. Pylori: HgbA1c: Vitamin D: Smoking: Never smoker Primary care physician referral: Brayden ([place], [place]) Psychiatry clearance: Cardiology clearance: Sleep study: Diet journal: VTE risk score: VTE risk level: Rehab needs at discharge:
== END ==
LOC: BARWHC3 14:35
PROVIDERS: ATTEND Surgery
DX: Z48.815 Encounter for surgical aftercare following surgery on the digestive system (principal); R13.10 Dysphagia, unspecified; K21.9 Gastro-esophageal reflux disease without esophagitis; Z98.84 Bariatric surgery status
CPT/HCPCS: 99211

== ENCOUNTER → 2017-03-21 | Outpatient (CLI) | payer BC ==
[2017-03-21 13:04] VITALS: BMI 43.6
== END | disposition home or self-care (01) ==
LOC: BARWHC3 08:46
PROVIDERS: ATTEND Surgery
DX: E66.01 Morbid (severe) obesity due to excess calories (principal); Z68.41 Body mass index [BMI] 40.0-44.9, adult
CPT/HCPCS: 97804

== ENCOUNTER → 2017-03-30 | Outpatient (CLI) | payer BC | END | disposition home or self-care (01) | LOC: LABPAT 11:11 | PROVIDERS: ATTEND Surgery | DX: R94.31 Abnormal electrocardiogram [ECG] [EKG] (principal) | CPT/HCPCS: 93005 ==

== ENCOUNTER → 2017-03-30 | Day surgery (SDC) | payer BC ==
[2017-03-29 09:40] VITALS: BMI 43.9
[~2017-03-30] MED LIST: LACTATED RINGERS 1,000 ML IV SCH; PROPOFOL 10 MG/ML 20 ML VIAL IV ONE
[2017-03-30 12:39] VITALS: RESP 16; TEMP 97.7
--- NOTE | 2017-03-30 13:03 | P.GSHP ---
History of Present Illness H&P Date: 03/30/17 Chief Complaint: GERD, dysphagia This a 41-year-old female who presents today for EGD. Patient is placed LAP- BAND. She's had trouble with dysphagia. Patient's undergoing workup for conversion to sleeve gastrectomy due to chronic dysphagia and GERD. Past Medical History Past Medical History: Fibromyalgia Additional Past Medical History / Comment(s): migraines, elevated HR, seizure of ukown cause in December 2016, History of Any Multi-Drug Resistant Organisms: None Reported Past Surgical History: Cholecystectomy Additional Past Surgical History / Comment(s): lab band 2009, invitro fertilization Past Anesthesia/Blood Transfusion Reactions: Postoperative Nausea & Vomiting ( PONV) Additional Past Anesthesia/Blood Transfusion Reaction / Comment(s): no hx of blood transfusion Smoking Status: Never smoker - Past Family History Mother Family Medical History: Cancer Additional Family Medical History / Comment(s): Breast CA Brother(s) Family Medical History: No Reported History Father Additional Family Medical History / Comment(s): father of suicide . Medications and Allergies Home Medications Medication Instructions Recorded Confirmed Type Metoprolol Tartrate [Lopressor] 25 mg PO BID 09/12/16 03/30/17 History Aspirin EC [Ecotrin Low Dose] 81 mg PO DAILY 12/28/16 03/29/17 History Acetaminophen [Tylenol] 325 mg PO Q4H PRN 03/29/17 03/30/17 History Allergies Allergy/AdvReac Type Severity Reaction Status Date / Time No Known Allergies Allergy Verified 03/29/17 09:47 Surgical - Exam Vital Signs Temp Pulse Resp BP Pulse Ox 97.7 F 69 16 139/82 97 03/30/17 12:38 03/30/17 12:38 03/30/17 12:38 03/30/17 12:38 03/30/17 12:38 - General well developed, no distress - Eyes PERRL - ENT normal pinna - Neck no masses - Respiratory normal expansion - Cardiovascular Rhythm: regular - Abdomen Abdomen: soft, non tender Assessment and Plan Assessment: GERD, dysphagia. We'll perform EGD
--- NOTE | 2017-03-30 13:20 | P.OP ---
Date of Procedure: 03/30/17 Preoperative Diagnosis: GERD Postoperative Diagnosis: Antral gastritis Procedure(s) Performed: EGD Anesthesia: MAC Surgeon: Wellington Salvador Pathology: other (Antrum, esophagus) Condition: stable Disposition: PACU Description of Procedure: The patient's placed on the endoscopy table lateral position. She received IV sedation. The gastroscope placed oropharynx passed in the esophagus and stomach. Scope was then placed through the pylorus. The first and second portion of the duodenum appeared normal. Scope was then brought back the antrum this was mildly inflamed. A biopsies performed. The scope was retroflexed and remainder stomach appeared normal. The patient had a previously placed lap band there is known to any inflammation or erosion of her LAP-BAND. Scope was then brought back to the gastric pouch this appeared to be enlarged. The GE junction was at 40 cm. The distal esophagus was mildly inflamed a biopsies performed. The proximal esophagus appeared normal. Scope was withdrawn for patient.
[2017-03-30 13:40] VITALS: BP 124/76; PULSE 76
== END ==
LOC: ORWHC2ENDO 09:50
PROVIDERS: ATTEND Surgery
DX: K29.50 Unspecified chronic gastritis without bleeding (principal); K21.9 Gastro-esophageal reflux disease without esophagitis; Z98.84 Bariatric surgery status; M79.7 Fibromyalgia; I10 Essential (primary) hypertension; G43.909 Migraine, unspecified, not intractable, without status migrainosus; E66.9 Obesity, unspecified; Z68.41 Body mass index [BMI] 40.0-44.9, adult; Z79.82 Long term (current) use of aspirin; Z79.899 Other long term (current) drug therapy
CPT/HCPCS: 81025; 88305; 43239; J2704

== ENCOUNTER 2017-04-08 07:56 | Inpatient (IN) | payer BC ==
[~2017-04-08 07:56] MED LIST changes: +ENOXAPARIN 40 MG/0.4 ML SYRINGE SQ ONE; -LACTATED RINGERS 1,000 ML IV SCH; -PROPOFOL 10 MG/ML 20 ML VIAL IV ONE; +ceFAZolin IN SWFI 2 GM/20 ML SYRINGE IVP ONE
[2017-04-08] MEDS ORDERED: ONDANSETRON 4 MG/2 ML VIAL IVP ONE (08:13)
[2017-04-08] MEDS ORDERED: DEXAMETHASONE SOD PHOSPHATE 10 MG/ML 1 ML VIAL IV ONE (08:13)
[2017-04-08] MEDS ORDERED: MIDAZOLAM 2 MG/2 ML VIAL IV PRN (08:13)
[2017-04-08] MEDS ORDERED: MORPHINE SULFATE 4 MG/ML SYRINGE IV PRN (08:13)
[2017-04-08] MEDS ORDERED: SCOPOLAMINE 1.5MG/72HR PATCH TRANSDERM ONE (08:13)
[2017-04-08] MEDS: LACTATED RINGERS 1,000 ML IV SCH (08:27)
--- NOTE | 2017-04-08 08:44 | P.GSHP ---
History of Present Illness H&P Date: 04/08/17 Chief Complaint: Morbid obesity, dysphagia This is a 41-year-old female who presents today for laparoscopic removal of LAP- BAND and conversion sleeve gastrectomy. Patient morbidly obese. Her BMI is 42. Patient's had chronic issues with dysphagia right her LAP-BAND. She is unable have her LAP-BAND adjustable due to dysphagia. Past Medical History Past Medical History: Fibromyalgia Additional Past Medical History / Comment(s): migraines, elevated HR, seizure of [place]own cause in December 2016, History of Any Multi-Drug Resistant Organisms: None Reported Past Surgical History: Cholecystectomy Additional Past Surgical History / Comment(s): lab band 2009, invitro fertilization Past Anesthesia/Blood Transfusion Reactions: Postoperative Nausea & Vomiting ( PONV) Additional Past Anesthesia/Blood Transfusion Reaction / Comment(s): no hx of blood transfusion Smoking Status: Never smoker - Past Family History Mother Family Medical History: Cancer Additional Family Medical History / Comment(s): Breast CA Brother(s) Family Medical History: No Reported History Father Additional Family Medical History / Comment(s): father of suicide . Medications and Allergies Home Medications Medication Instructions Recorded Confirmed Type Metoprolol Tartrate [Lopressor] 25 mg PO BID 09/12/16 04/08/17 History Aspirin EC [Ecotrin Low Dose] 81 mg PO DAILY 12/28/16 03/29/17 History Acetaminophen [Tylenol] 325 mg PO Q4H PRN 03/29/17 04/08/17 History Allergies Allergy/AdvReac Type Severity Reaction Status Date / Time No Known Allergies Allergy Verified 04/08/17 08:24 Surgical - Exam Vital Signs Temp Pulse Resp BP Pulse Ox 98.6 F 80 16 130/80 97 04/08/17 08:12 04/08/17 08:12 04/08/17 08:12 04/08/17 08:12 04/08/17 08:12 - General well developed, no distress - Eyes PERRL - ENT normal pinna - Neck no masses - Respiratory normal expansion - Cardiovascular Rhythm: regular - Abdomen Abdomen: soft, non tender Assessment and Plan Assessment: Morbid obesity with dysphagia. We'll patient will undergo removal of LAP-BAND conversion sleeve gastric. Patient reversed surgery including conversion O procedure and injury to the stomach liver spleen results aware the risk of possible gastric staple line disruption, bleeding or perforation or scarring.
[2017-04-08] MEDS ORDERED: ROCURONIUM BROMIDE 10 MG/ML 10 ML VIAL IV ONE (09:14)
[2017-04-08] MEDS ORDERED: SUCCINYLCHOLINE CHLORIDE 100 MG/5 ML SYR IV ONE (09:14)
[2017-04-08] MEDS ORDERED: GLYCOPYRROLATE 0.2 MG/ML 2 ML VIAL ONE (09:14)
[2017-04-08] MEDS ORDERED: PROPOFOL 10 MG/ML 20 ML VIAL IV ONE (09:14)
[2017-04-08] MEDS ORDERED: LIDOCAINE 1% INJ 10MG/ML (20 ML MDV) ONE (09:14)
[2017-04-08] MEDS ORDERED: NEOSTIGMINE 1 MG/ML 10 ML VIAL ONE (09:14)
[2017-04-08] MEDS ORDERED: fentaNYL (PF) 50 MCG/ML 2 ML AMP ONE (09:14)
[2017-04-08] MEDS ORDERED: MIDAZOLAM 2 MG/2 ML VIAL ONE (09:14)
[2017-04-08] MEDS ORDERED: BUPIVACAINE (PF) 0.5% 30 ML VIAL SQ ONE (09:37)
[2017-04-08] MEDS ORDERED: LACTATED RINGERS 1,000 ML IV ONE (10:24)
[2017-04-08] MEDS ORDERED: diphenhydrAMINE 50 MG/ML 1 ML VIAL IVP PRN (10:59)
[2017-04-08] MEDS ORDERED: NALOXONE 0.4 MG/ML 1 ML VIAL IV PRN (10:59)
[2017-04-08] MEDS ORDERED: HYDROcodone/APAP 7.5-325MG 1 EACH TAB PO PRN (11:02)
[2017-04-08] MEDS: HYDROmorphone 0.5 MG/0.5 ML SYRINGE IVP ONE ×2 (11:20→12:11)
[2017-04-08] MEDS ORDERED: KETOROLAC 30 MG/ML 1 ML VIAL IVP ONE (12:41)
[2017-04-08] MEDS: ONDANSETRON 4 MG/2 ML VIAL IVP PRN ×2 (13:14→19:30)
[2017-04-08] MEDS: HYDROmorphone 0.5 MG/0.5 ML SYRINGE IVP PRN ×2 (13:18→17:52)
[2017-04-08 13:34] VITALS: BMI 42.1
[2017-04-08] MEDS: ALBUTEROL NEBULIZED 2.5 MG/3 ML INHALATION SCH ×3 (15:11→19:58)
[2017-04-08] MEDS: KETOROLAC 30 MG/ML 1 ML VIAL IVP SCH ×3 (15:57→23:15)
[2017-04-08] MEDS: 0.9% NACL WITH KCL 20 MEQ/L 1,000 ML IV SCH ×2 (16:05→20:04)
[2017-04-08] MEDS: AMPICILLIN-SULBACTAM 3 GM in SODIUM CHLORIDE 0.9% 100 ML IVPB SCH ×2 (16:05→20:04)
[2017-04-08] MEDS: HYOSCYAMINE ORAL DROPS 1.875 MG/15 ML BOTTLE PO PRN (17:02)
[2017-04-08] MEDS: SIMETHICONE 40 MG/0.6 ML DROPS 2,000 MG/30 ML BOTTLE PO PRN (17:02)
[2017-04-08] MEDS: FAMOTIDINE 20 MG TAB PO SCH (20:04)
[2017-04-08] MEDS ORDERED: ONDANSETRON 4 MG/2 ML VIAL IVP STA (21:48)
[2017-04-08] MEDS ORDERED: hydrOXYzine HCL 50 MG/ML 1 ML VIAL IM PRN (21:53)
[2017-04-08] MEDS: ACETAMINOPHEN IV (For NPO) 1,000 MG in EMPTY BAG 1 BAG IVPB SCH (22:20)
[2017-04-08] MEDS ORDERED: ONDANSETRON 4 MG TAB PO PRN (22:35)
[2017-04-08] MEDS ORDERED: PROCHLORPERAZINE SUPPOSITORY 25 MG SUPP RECTAL PRN (22:44)
[2017-04-08] MEDS ORDERED: METOCLOPRAMIDE 5 MG/ML 2 ML VIAL IVP STA (22:45)
[2017-04-09] MEDS: 0.9% NACL WITH KCL 20 MEQ/L 1,000 ML IV SCH ×4 (02:05→23:43)
[2017-04-09] MEDS: ACETAMINOPHEN IV (For NPO) 1,000 MG in EMPTY BAG 1 BAG IVPB SCH ×4 (05:09→23:42)
[2017-04-09] MEDS: KETOROLAC 30 MG/ML 1 ML VIAL IVP SCH ×4 (05:10→23:42)
[2017-04-09 07:49] LABS: Basophils # (A) 0.1 k/uL (0-0.2); Basophils % (A) 0 %; Eosinophils % (A) 0 %; Lymphocytes # (A) 1.9 k/uL (1.0-4.8); Lymphocytes % (A) 16 %; MCH 30.7 pg (25.0-35.0); MCHC 31.6 g/dL (31.0-37.0); Mean Platelet Volume 6.4; Monocytes # (A) 0.7 k/uL (0-1.0); Monocytes % (A) 6 %; Neutrophils # (A) 8.9 k/uL (1.3-7.7); Neutrophils % (A) 76 %; Platelet Count 336 k/uL (150-450); RBC 4.23 m/uL (3.80-5.40); RDW 12.9 % (11.5-15.5); WBC 11.7 k/uL (3.8-10.6)
[2017-04-09 08:06] LABS: Anion Gap 13 mmol/L; Blood Urea Nitrogen 7 mg/dL (7-17); Calcium 8.4 mg/dL (8.4-10.2); Carbon Dioxide 20 mmol/L (22-30); Chloride 108 mmol/L (98-107); Magnesium 1.8 mg/dL (1.6-2.3); Phosphorus 2.8 mg/dL (2.5-4.5); Sodium 141 mmol/L (137-145)
[2017-04-09] MEDS: ENOXAPARIN 40 MG/0.4 ML SYRINGE SQ SCH ×2 (08:21→20:30)
[2017-04-09] MEDS: LACTATED RINGERS 1,000 ML IV SCH (08:21)
[2017-04-09] MEDS: FAMOTIDINE 20 MG TAB PO SCH ×2 (08:22→08:27)
[2017-04-09] MEDS: HYOSCYAMINE ORAL DROPS 1.875 MG/15 ML BOTTLE PO PRN ×2 (08:28→20:01)
[2017-04-09] MEDS: SIMETHICONE 40 MG/0.6 ML DROPS 2,000 MG/30 ML BOTTLE PO PRN ×2 (08:29→20:00)
[2017-04-09] MEDS: ALBUTEROL NEBULIZED 2.5 MG/3 ML INHALATION SCH ×4 (08:39→21:33)
[2017-04-09] MEDS: PANTOPRAZOLE 40 MG/10 ML VIAL IV SCH (09:42)
--- NOTE | 2017-04-09 12:42 | P.PN ---
Subjective Progress Note Date: 04/09/17 Principal diagnosis: Morbid obesity Patient has had issues since surgery yesterday with intermittent vomiting and persistent nausea. She has had small volume hematemesis at times. She believes it slightly improving today. She is having dysphagia to her own saliva. Her white blood cell count is 11.7. Afebrile. Upper GI today is pending. Hemoglobin stable. Objective - Vital Signs Vital signs: Vital Signs Temp 98.8 F 04/09/17 08:19 Pulse 86 04/09/17 12:24 Resp 16 04/09/17 08:19 BP 134/64 04/09/17 08:19 Pulse Ox 97 04/09/17 08:19 Intake & Output 04/08/17 04/09/17 04/09/17 18:59 06:59 18:59 Intake Total 1800 2573 Output Total 20 55 Balance 1780 2518 Weight 111.3 kg Intake: IV 1600 Intake, IV Titration 200 2573 Amount 0.9% NaCl with KCl 20 Meq 200 /l 1,000 ml @ 100 mls/hr IV .Q10H [facility] Rx#: [id number] 0.9% NaCl with KCl 20 Meq 1773 /l 1,000 ml @ 150 mls/hr IV .Q6H40M [facility] Rx#: [id number] ACETAMINOPHEN IV (For NPO 800 ) 1,000 mg In Empty Bag 1 bag @ 400 mls/hr IVPB Q6HR [facility] Rx#:[id number] Oral 0 Output: Emesis 55 Estimated Blood Loss 20 Other: Voiding Method Toilet Toilet # Voids 1 1 - Exam Abdomen: Soft, nondistended, mild upper abdominal incisional tenderness, incisions clean and dry - Labs CBC & Chem 7: 04/09/17 07:01 04/09/17 07:01 Labs: Abnormal Lab Results - Last 24 Hours (Table) 04/09/17 04/09/17 Range/Units 07:01 07:01 WBC 11.7 H (3.8-10.6) k/uL Neutrophils # 8.9 H (1.3-7.7) k/uL Chloride 108 H (98-107) mmol/L Carbon Dioxide 20 L (22-30) mmol/L Assessment and Plan (1) Morbid obesity Narrative/Plan: Keep nothing by mouth for now. Await esophagram. Continue antibiotics. Current Visit: Yes Status: Acute Code(s): E66.01 - MORBID (SEVERE) OBESITY DUE TO EXCESS CALORIES SNOMED Code(s): 901313534
--- NOTE | 2017-04-09 15:27 | FL ---
EXAMINATION TYPE: FL UGI DATE OF EXAM ORDERED: 04/09/2017 3:07 PM HISTORY: Gastric sleeve. COMPARISON: None. FINDINGS: The esophagus distended well with air and barium without evidence of obstructing or constr icting disease. There is a high grade obstruction just distal to the gastroesophageal junction. No co ntrast seen beyond this point. There is no significant free air, IMPRESSION: HIGH-GRADE OBSTRUCTION AT THE GASTROESOPHAGEAL JUNCTION POST GASTRIC SLEEVE.
[2017-04-09] MEDS ORDERED: SCOPOLAMINE 1.5MG/72HR PATCH TRANSDERM STA (16:15)
[2017-04-09] MEDS ORDERED: METOCLOPRAMIDE 5 MG/ML 2 ML VIAL IVP PRN (16:54)
[2017-04-09] MEDS ORDERED: METOCLOPRAMIDE 5 MG/ML 2 ML VIAL IVP SCH (18:00)
[2017-04-09] MEDS ORDERED: PROMETHAZINE INJ 25 MG in SODIUM CHLORIDE 0.9% 50 ML IVPB PRN (18:21)
--- NOTE | 2017-04-09 18:29 | P.CONS ---
History of Present Illness - Reason for Consult Consult date: 04/09/17 Medical management Requesting physician: Wellington Salavdor - Chief Complaint Laparoscopic gastric sleeve for bariatric weight loss surgery - History of Present Illness This Is a pleasant [address] Horton patient has underlying history of fibromyalgia, morbid obesity, migraines, episode of seizure with unknown cause solitary occurred in December 2016, not requiring any medications , and has no relapse. She underwent laparoscopic gastric sleeve on 04/08/[address] Teresa Arrgeuin, for surgical assisted weight loss program. She had laparoscopic banding surgery in 2009 with subsequent 40 pound weight loss. She had troubles overnight with regards to swallowing, she has vomiting, has difficulty in swallowing her own saliva, she had a routine esophagram this morning that shows high-grade obstruction at the level of GE junction doubt any extravasation of contrast or constricting disease, patient remains to be comfortable with last emesis 15 minutes prior to my valuation. She has problems overnight requiring Vistaril scopolamine patch and Zofran she had few episodes of small volume hematemesis. White cell count is 11,000, no fevers Review of Systems Constitutional: Reports as per HPI Eyes: bilateral as per HPI, denies blurred vision, denies bulging eye, denies decreased vision, denies diplopia, denies discharge, denies dry eye, denies irritation, denies itching, denies pain, denies photophobia, denies loss of peripheral vision Ears, nose, mouth and throat: Reports as per HPI, Reports dysphagia, Denies ant. neck pain, Denies bleeding gums, Denies dental pain, Denies epistaxis, Denies headache, Denies hoarseness, Denies mouth pain, Denies nasal congestion, Denies nasal discharge, Denies neck fullness/pressure, Denies neck lump, Denies nose pain, Denies odynophagia, Denies post-nasal drip, Denies sinus pain, Denies sinus pressure, Denies swelling in mouth, Denies swelling in throat, Denies sore throat, Denies vertigo, Denies voice changes Cardiovascular: Reports as per HPI, Denies chest pain, Denies claudication, Denies decreased exercise tolerance, Denies dyspnea on exertion, Denies edema, Denies high blood pressure, Denies irregular heart beat, Denies leg edema, Denies lightheadedness, Denies orthopnea, Denies palpitations, Denies paroxysmal nocturnal dyspnea, Denies phlebitis, Denies rapid heart beat, Denies shortness of breath, Denies syncope Respiratory: Reports as per HPI, Denies congestion, Denies cough, Denies cough with sputum, Denies dyspnea, Denies excessive sputum, Denies hemoptysis, Denies home oxygen, Denies pain, Denies pain on inspiration, Denies pleurisy, Denies respiratory infections, Denies sleep apnea, Denies snoring, Denies wheezing Gastrointestinal: Reports as per HPI, Reports nausea, Reports vomiting, Denies abdominal pain, Denies belching, Denies bloating, Denies BRBPR, Denies change in bowel habits, Denies coffee ground emesis, Denies constipation, Denies diarrhea, Denies dyspepsia, Denies early satiety, Denies excessive gas, Denies heartburn, Denies hematemesis, Denies hematochezia, Denies indigestion, Denies jaundice, Denies lactose intolerance, Denies loss of appetite, Denies melena Genitourinary: Reports as per HPI, Denies abnormal vaginal bleeding, Denies decreased libido, Denies difficulty conceiving, Denies difficulty voiding, Denies dysmenorrhea, Denies dyspareunia, Denies dysuria, Denies flank pain, Denies genital sores, Denies hematuria, Denies hot flashes, Denies incomplete emptying, Denies kidney stones, Denies menorrhagia, Denies mixed incontinence, Denies nocturia, Denies pelvic pain, Denies post void dribbling, Denies , Denies prolapse symptoms, Denies stress incontinence, Denies urge incontinence , Denies urgency, Denies urinary frequency, Denies vaginal discharge, Denies vaginal dryness, Denies vaginal itching, Denies vaginal odor Menstruation: Reports as per HPI, Denies amenorrhea, Denies amenorrhea on BC, Denies currently menstrual, Denies cycle < 21 days, Denies cycle > 35 days, Denies cycle variable, Denies menses 1-7 days, Denies menses 8 or > days, Denies menses variable, Denies period heavy, Denies period light, Denies period normal, Denies period spotting, Denies post hysterectomy, Denies postmenopausal , Denies premenarcheal Musculoskeletal: Reports as per HPI, Denies arm numbness/tingling, Denies atrophy, Denies fractures, Denies frequent falls, Denies gait dysfunction, Denies hot joints, Denies leg numbness/tingling, Denies limitation of motion, Denies loss of height, Denies low back pain, Denies morning stiffness, Denies muscle cramps, Denies muscle weakness, Denies myalgias, Denies neck pain, Denies neck stiffness, Denies prior amputations, Denies redness of joints, Denies shooting arm pain, Denies shooting leg pain Integumentary: Reports as per HPI, Denies acne, Denies boils, Denies brittle nails, Denies change in hair/nails, Denies color changes, Denies darkening of skin, Denies depigmentation, Denies dryness, Denies foot/leg ulcers, Denies growths, Denies hirsutism, Denies lesions, Denies onychomycosis, Denies pruritus , Denies rash, Denies sores, Denies striae, Denies unusual bruising, Denies wounds Neurological: Reports as per HPI, Denies aphasia, Denies ataxia, Denies balance difficulties, Denies burning pain, Denies change in mentation, Denies change in smell/taste, Denies change in speech, Denies confusion, Denies convulsions, Denies double vision, Denies gait dysfunction, Denies head injury, Denies headaches, Denies hearing difficulties, Denies lack of coordination, Denies loss of vision, Denies memory loss, Denies migraines, Denies motor disturbance, Denies numbness, Denies paralysis, Denies paresthesias, Denies seizures, Denies sensory deficit, Denies spasticity, Denies syncope, Denies tic, Denies tingling , Denies transient paralysis, Denies tremors, Denies vertigo, Denies weakness, Denies visual changes Psychiatric: Reports as per HPI, Denies anhedonia, Denies anxiety, Denies anxiety attacks, Denies change in appetite, Denies change in libido, Denies change in sleep habits, Denies confusion, Denies depression, Denies difficulty concentrating, Denies disorientation, Denies hallucinations, Denies hopelessness , Denies hypersomnia, Denies insomnia, Denies irritability, Denies memory loss, Denies mood swings, Denies paranoia, Denies sadness/tearfulness, Denies sleep disturbances, Denies suicidal ideation Endocrine: Reports as per HPI, Denies cold intolerance, Denies deepening of the voice, Denies excessive sweating, Denies excessive thirst, Denies fatigue, Denies flushing, Denies heat intolerance, Denies high blood sugars, Denies increase in ring/shoe/hat size, Denies low blood sugars, Denies nocturia, Denies palpitations, Denies polydipsia, Denies polyphagia, Denies polyuria, Denies proptosis, Denies recent glucocorticoid use, Denies thyroid mass, Denies weight change Hematologic/Lymphatic: Reports as per HPI, Denies easy bleeding, Denies easy bruising, Denies lymphadenopathy, Denies lymphedema, Denies thrombophilia Allergic/Immunologic: Reports as per HPI, Denies allergic rhinitis, Denies anaphylaxis, Denies angioedema, Denies gluten intolerance, Denies persistent infections, Denies seasonal allergies, Denies urticaria, Denies wheezing Past Medical History Past Medical History: Fibromyalgia Additional Past Medical History / Comment(s): migraines, elevated HR, seizure of [place] cause in December 2016, History of Any Multi-Drug Resistant Organisms: None Reported Past Surgical History: Cholecystectomy Additional Past Surgical History / Comment(s): lab band 2009, invitro fertilization, metatarsus abduction surgery at age 6 Past Anesthesia/Blood Transfusion Reactions: Postoperative Nausea & Vomiting ( PONV) Additional Past Anesthesia/Blood Transfusion Reaction / Comm: no hx of blood transfusion Past Psychological History: No Psychological Hx Reported Smoking Status: Never smoker Past Alcohol Use History: None Reported Past Drug Use History: None Reported - Past Family History Mother Family Medical History: Cancer, Hypertension Additional Family Medical History / Comment(s): Breast CA Brother(s) Family Medical History: No Reported History Father History Unknown: Yes (PTSD at 52 secondary to suicide) Additional Family Medical History / Comment(s): father of suicide . Medications and Allergies Home Medications Medication Instructions Recorded Confirmed Type Metoprolol Tartrate [Lopressor] 25 mg PO BID 09/12/16 04/08/17 History Aspirin EC [Ecotrin Low Dose] 81 mg PO DAILY 12/28/16 04/08/17 History Acetaminophen [Tylenol] 325 mg PO Q4H PRN 03/29/17 04/08/17 History Bisacodyl [Dulcolax] 5 mg PO DAILY PRN #10 tablet. 04/08/17 Rx HYDROcodone/APAP 7.5-325MG [[place] 1 each PO Q4H PRN #30 tab 04/08/17 Rx 7.5] Omeprazole 40 mg PO DAILY #60 capsule. 04/08/17 Rx Ondansetron Odt [Zofran Odt] 4 mg PO Q8HR PRN #9 tab 04/08/17 Rx Simethicone 40 mg/0.6 ml Drops 40 mg PO PCHS PRN #30 ml 04/08/17 Rx [Mylicon Drops] Allergies Allergy/AdvReac Type Severity Reaction Status Date / Time No Known Allergies Allergy Verified 04/08/17 08:24 Physical Exam Vitals: Vital Signs Temp Pulse Pulse Resp BP Pulse Ox 04/09/17 15:00 98.2 F 77 21 114/74 98 04/09/17 12:24 86 04/09/17 12:12 85 04/09/17 08:53 88 04/09/17 08:39 88 04/09/17 08:19 98.8 F 79 16 134/64 97 04/09/17 08:00 16 04/09/17 02:43 93 L 04/09/17 02:34 97 04/09/17 00:32 98.7 F 86 16 115/72 98 04/08/17 20:10 84 16 04/08/17 19:58 78 16 97 04/08/17 18:52 97.6 F 74 16 145/87 04/08/17 16:53 66 100 04/08/17 16:46 60 Intake and Output 04/09/17 04/09/17 04/09/17 06:59 14:59 22:59 Intake Total 1972 Balance 1972 Intake: Intake, IV Titration 1972 Amount 0.9% NaCl with KCl 20 Meq 1173 /l 1,000 ml @ 150 mls/hr IV .Q6H40M [facility] Rx#: [id number] ACETAMINOPHEN IV (For NPO 800 ) 1,000 mg In Empty Bag 1 bag @ 400 mls/hr IVPB Q6HR [facility] Rx#:[id number] Oral 0 Other: Voiding Method Toilet # Voids 1 1 - Constitutional General appearance: cooperative, no acute distress, obese - EENT Eyes: anicteric sclerae, PERRLA, dentition normal, normal appearance ENT: NA/AT, normal oropharynx - Neck Neck: no lymphadenopathy, normal ROM, no other, no rigidity, no stridor, no thyromegaly - Respiratory Respiratory: bilateral: CTA, negative: diminished, dullness, rales, rhonchi, wheezing - Cardiovascular Rhythm: regular Heart sounds: normal: S1, S2 Abnormal Heart Sounds: no systolic murmur, no diastolic murmur, no rub, no S3 Gallop, no S4 Gallop, no click, no other - Gastrointestinal General gastrointestinal: decreased bowel sounds, soft - Integumentary Integumentary: normal, normal turgor - Musculoskeletal Musculoskeletal: gait normal, strength equal bilaterally - Psychiatric Psychiatric: A&O x's 3, appropriate affect, intact judgment & insight Results CBC & Chem 7: 04/09/17 07:01 04/09/17 07:01 Labs: Abnormal Lab Results - Last 24 Hours (Table) 04/09/17 04/09/17 Range/Units 07:01 07:01 WBC 11.7 H (3.8-10.6) k/uL Neutrophils # 8.9 H (1.3-7.7) k/uL Chloride 108 H (98-107) mmol/L Carbon Dioxide 20 L (22-30) mmol/L Laboratory Results WBC 11.7 k/uL (3.8-10.6) H 04/09/17 07:01 RBC 4.23 m/uL (3.80-5.40) 04/09/17 07:01 Hgb 13.0 gm/dL (11.4-16.0) 04/09/17 07:01 Hct 41.0 % (34.0-46.0) 04/09/17 07:01 MCV 97.0 fL (80.0-100.0) 04/09/17 07:01 MCH 30.7 pg (25.0-35.0) 04/09/17 07:01 MCHC 31.6 g/dL (31.0-37.0) 04/09/17 07:01 RDW 12.9 % (11.5-15.5) 04/09/17 07:01 Plt Count 336 k/uL (150-450) 04/09/17 07:01 Neutrophils % 76 % 04/09/17 07:01 Lymphocytes % 16 % 04/09/17 07:01 Monocytes % 6 % 04/09/17 07:01 Eosinophils % 0 % 04/09/17 07:01 Basophils % 0 % 04/09/17 07:01 Neutrophils # 8.9 k/uL (1.3-7.7) H 04/09/17 07:01 Lymphocytes # 1.9 k/uL (1.0-4.8) 04/09/17 07:01 Monocytes # 0.7 k/uL (0-1.0) 04/09/17 07:01 Eosinophils # 0.0 k/uL (0-0.7) 04/09/17 07:01 Basophils # 0.1 k/uL (0-0.2) 04/09/17 07:01 Sodium 141 mmol/L (137-145) 04/09/17 07:01 Potassium 4.0 mmol/L (3.5-5.1) 04/09/17 07:01 Chloride 108 mmol/L (98-107) H 04/09/17 07:01 Carbon Dioxide 20 mmol/L (22-30) L 04/09/17 07:01 Anion Gap 13 mmol/L 04/09/17 07:01 BUN 7 mg/dL (7-17) 04/09/17 07:01 Creatinine 0.56 mg/dL (0.52-1.04) 04/09/17 07:01 Est GFR (MDRD) Af Amer >60 (>60 ml/min/1.73 sqM) 04/09/17 07:01 Est GFR (MDRD) Non-Af >60 (>60 ml/min/1.73 sqM) 04/09/17 07:01 Calcium 8.4 mg/dL (8.4-10.2) 04/09/17 07:01 Phosphorus 2.8 mg/dL (2.5-4.5) 04/09/17 07:01 Magnesium 1.8 mg/dL (1.6-2.3) 04/09/17 07:01 Assessment and Plan Plan: 1. Status post last breast copy gastric sleeve surgery on 04/08/2017 for surgically assisted weight loss program, agent is on DVT prophylaxis and incentive spirometry,opiates for pain control 2. High-grade obstruction in the GE junction status post gastric sleeve surgery , most likely secondary to significant edema, patient remains on nothing by mouth, follow esophagram, antiemesis treatment with Zofran and scopolamine patches, when necessary Phenergan IV REGLAN IV 3. BMI of 42 with prior laparoscopic band with 40 pound weight loss in 2009 4. Fibromyalgia 5. Seizure disorder not specified as etiology, not requiring any maintenance medications 6. Migraines on Lopressor 25 mg twice a day DVT prophylaxis Lovenox GI prophylaxis on Protonix IV Thank you Dr. Salvador in [facility] care. Patient. We'll going to follow her with you during this current hospital stay, recommendations and adjustments to her treatment would be made on her clinical progress
[2017-04-09] MEDS: ONDANSETRON 4 MG/2 ML VIAL IVP PRN (20:05)
[2017-04-09] MEDS: METOCLOPRAMIDE 5 MG/ML 2 ML VIAL IVP SCH (22:43)
[2017-04-10] MEDS: ONDANSETRON 4 MG/2 ML VIAL IVP PRN (02:11)
[2017-04-10] MEDS: ACETAMINOPHEN IV (For NPO) 1,000 MG in EMPTY BAG 1 BAG IVPB SCH ×4 (05:07→23:31)
[2017-04-10] MEDS: KETOROLAC 30 MG/ML 1 ML VIAL IVP SCH (05:07)
[2017-04-10] MEDS: METOCLOPRAMIDE 5 MG/ML 2 ML VIAL IVP SCH ×4 (05:08→23:32)
[2017-04-10] MEDS: LACTATED RINGERS 1,000 ML IV SCH (07:50)
[2017-04-10 07:51] LABS: Basophils % (A) 0 %; Eosinophils # (A) 0.2 k/uL (0-0.7); Eosinophils % (A) 3 %; HCT 35.9 % (34.0-46.0); HGB 11.4 gm/dL (11.4-16.0); Lymphocytes # (A) 1.5 k/uL (1.0-4.8); Lymphocytes % (A) 20 %; MCH 31.3 pg (25.0-35.0); MCHC 31.7 g/dL (31.0-37.0); MCV 98.7 fL (80.0-100.0); Mean Platelet Volume 6.4; Monocytes # (A) 0.6 k/uL (0-1.0); Monocytes % (A) 7 %; Neutrophils # (A) 5.3 k/uL (1.3-7.7); Neutrophils % (A) 69 %; Platelet Count 293 k/uL (150-450); RBC 3.64 m/uL (3.80-5.40); RDW 12.8 % (11.5-15.5); WBC 7.7 k/uL (3.8-10.6)
[2017-04-10] MEDS: PANTOPRAZOLE 40 MG/10 ML VIAL IV SCH (07:51)
[2017-04-10] MEDS: ENOXAPARIN 40 MG/0.4 ML SYRINGE SQ SCH ×2 (07:51→20:06)
[2017-04-10 07:56] LABS: Anion Gap 9 mmol/L; Blood Urea Nitrogen 5 mg/dL (7-17); Calcium 8.2 mg/dL (8.4-10.2); Carbon Dioxide 17 mmol/L (22-30); Chloride 113 mmol/L (98-107); Glucose 67 mg/dL (74-99); Potassium 4.1 mmol/L (3.5-5.1); Sodium 139 mmol/L (137-145)
[2017-04-10] MEDS: ALBUTEROL NEBULIZED 2.5 MG/3 ML INHALATION SCH ×4 (07:58→20:39)
[2017-04-10] MEDS ORDERED: BISACODYL 5 MG TABLET.DR PO PRN (08:00)
[2017-04-10] MEDS ORDERED: DEXTROSE 5%-0.45% NACL 1,000 ML IV SCH (08:30)
--- NOTE | 2017-04-10 09:08 | P.PN ---
Subjective Progress Note Date: 04/10/17 Principal diagnosis: Morbid obesity Patient still having dysphagia and inability tolerate her own secretions. May be slightly better than yesterday. No significant pain. White blood cell count normal. Yesterday's upper GI shows non-passage of barium beyond the proximal sleeve. Objective - Vital Signs Vital signs: Vital Signs Temp 97.2 F L 04/10/17 06:44 Pulse 84 04/10/17 08:08 Resp 16 04/10/17 06:44 BP 113/60 04/10/17 06:44 Pulse Ox 93 L 04/10/17 07:58 Intake & Output 04/09/17 04/10/17 04/10/17 18:59 06:59 18:59 Intake Total 550 0 Output Total 225 Balance 325 0 Intake: Intake, IV Titration 550 Amount 0.9% NaCl with KCl 20 Meq 550 /l 1,000 ml @ 150 mls/hr IV .Q6H40M [facility] Rx#: [id number] Oral 0 Output: Emesis 225 Other: Voiding Method Toilet Toilet # Voids 1 2 1 - Exam Abdomen: Soft, nondistended, incisions clean and dry, minimal tenderness - Labs CBC & Chem 7: 04/10/17 06:28 04/10/17 06:28 Labs: Abnormal Lab Results - Last 24 Hours (Table) 04/10/17 04/10/17 Range/Units 06:28 06:28 RBC 3.64 L (3.80-5.40) m/uL Chloride 113 H (98-107) mmol/L Carbon Dioxide 17 L (22-30) mmol/L BUN 5 L (7-17) mg/dL Creatinine 0.51 L (0.52-1.04) mg/dL Glucose 67 L (74-99) mg/dL Calcium 8.2 L (8.4-10.2) mg/dL Assessment and Plan (1) Morbid obesity Narrative/Plan: Continue ice chips only. If symptoms persist overnight will discuss with Dr. Salvador about upper endoscopy tomorrow. Current Visit: Yes Status: Acute Code(s): E66.01 - MORBID (SEVERE) OBESITY DUE TO EXCESS CALORIES SNOMED Code(s): 887607561
[2017-04-10] MEDS: D5-0.45% NACL WITH KCL 20MEQ/L 1,000 ML IV SCH ×2 (10:14→19:53)
[2017-04-10] MEDS: FAMOTIDINE 20 MG/2 ML VIAL IV SCH ×2 (10:22→20:06)
[2017-04-10] MEDS: methylPREDNISolone SOD SUCCI 40 MG/ML 1 ML VIAL IV SCH ×3 (10:22→23:32)
[2017-04-10] MEDS ORDERED: HYDROmorphone 2 MG TAB PO PRN (11:01)
[2017-04-10 11:34] LABS: Glucose,Whole Blood 86 mg/dL (75-99)
[2017-04-10] MEDS: diphenhydrAMINE 50 MG/ML 1 ML VIAL IVP SCH ×3 (11:39→23:32)
[2017-04-10] MEDS: INSULIN ASPART 100 UNIT/ML 1 ML 10 ML VIAL SQ SCH ×2 (11:39→17:24)
[2017-04-10 17:13] LABS: Glucose,Whole Blood 127 mg/dL (75-99)
--- NOTE | 2017-04-10 20:39 | P.PN ---
Subjective Progress Note Date: 04/10/17 This Is a pleasant [address] Horton patient has underlying history of fibromyalgia, morbid obesity, migraines, episode of seizure with unknown cause solitary occurred in December 2016, not requiring any medications , and has no relapse. She underwent laparoscopic gastric sleeve on 04/08/[address] Teresa Arreguin, for surgical assisted weight loss program. She had laparoscopic banding surgery in 2009 with subsequent 40 pound weight loss. She had troubles overnight with regards to swallowing, she has vomiting, has difficulty in swallowing her own saliva, she had a routine esophagram this morning that shows high-grade obstruction at the level of GE junction doubt any extravasation of contrast or constricting disease, patient remains to be comfortable with last emesis 15 minutes prior to my valuation. She has problems overnight requiring Vistaril scopolamine patch and Zofran she had few episodes of small volume hematemesis. White cell count is 11,000, no fevers 04/10: Patient is significantly better. However, she has khlglw-fzj-ctebq scopolamine patch and Reglan ndjyma-lvf-flgmg, last nausea and vomiting was 2 AM , patient is on Solu-Medrol that seed, Benadryl, anticipating stability of endoscopy in the morning, EGD Dr. Salvador Objective - Vital Signs Vital signs: Vital Signs Temp 97.6 F 04/10/17 19:29 Pulse 79 04/10/17 19:29 Resp 18 04/10/17 19:29 BP 121/77 04/10/17 19:29 Pulse Ox 95 04/10/17 19:29 Intake & Output 04/10/17 04/10/17 04/11/17 06:59 18:59 06:59 Intake Total 550 0 Output Total 225 Balance 325 0 Intake: Intake, IV Titration 550 Amount 0.9% NaCl with KCl 20 Meq 550 /l 1,000 ml @ 150 mls/hr IV .Q6H40M [facility] Rx#: [id number] Oral 0 Output: Emesis 225 Other: Voiding Method Toilet # Voids 2 1 - Constitutional General appearance: Present: cooperative, no acute distress - EENT Eyes: Present: anicteric sclerae, EOMI, PERRLA, dentition normal, normal appearance ENT: Present: NA/AT, normal oropharynx - Neck Neck: Present: normal ROM - Respiratory Respiratory: bilateral: CTA, negative: diminished, dullness, rales, rhonchi - Cardiovascular Rhythm: regular Abnormal Heart Sounds: Absent: systolic murmur, diastolic murmur, rub, S3 Gallop , S4 Gallop, click, other - Gastrointestinal General gastrointestinal: Present: normal bowel sounds, soft - Integumentary Integumentary: Present: normal, normal turgor - Neurologic Neurologic: Present: CNII-XII intact, focal deficits - Musculoskeletal Musculoskeletal: Present: gait normal, strength equal bilaterally - Psychiatric Psychiatric: Present: A&O x's 3, appropriate affect, intact judgment & insight - Labs CBC & Chem 7: 04/10/17 06:28 04/10/17 06:28 Labs: Abnormal Lab Results - Last 24 Hours (Table) 04/10/17 04/10/17 04/10/17 Range/Units 06:28 06:28 17:10 RBC 3.64 L (3.80-5.40) m/uL Chloride 113 H (98-107) mmol/L Carbon Dioxide 17 L (22-30) mmol/L BUN 5 L (7-17) mg/dL Creatinine 0.51 L (0.52-1.04) mg/dL Glucose 67 L (74-99) mg/dL POC Glucose (mg/dL) 127 H (75-99) mg/dL Calcium 8.2 L (8.4-10.2) mg/dL Laboratory Results WBC 7.7 k/uL (3.8-10.6) 04/10/17 06:28 RBC 3.64 m/uL (3.80-5.40) L 04/10/17 06:28 Hgb 11.4 gm/dL (11.4-16.0) 04/10/17 06:28 Hct 35.9 % (34.0-46.0) 04/10/17 06:28 MCV 98.7 fL (80.0-100.0) 04/10/17 06:28 MCH 31.3 pg (25.0-35.0) 04/10/17 06:28 MCHC 31.7 g/dL (31.0-37.0) 04/10/17 06:28 RDW 12.8 % (11.5-15.5) 04/10/17 06:28 Plt Count 293 k/uL (150-450) 04/10/17 06:28 Neutrophils % 69 % 04/10/17 06: Lymphocytes % 20 % 04/10/17 06: Monocytes % 7 % 04/10/17 06: Eosinophils % 3 % 04/10/17 06:28 Basophils % 0 % 04/10/17 06:28 Neutrophils # 5.3 k/uL (1.3-7.7) 04/10/17 06:28 Lymphocytes # 1.5 k/uL (1.0-4.8) 04/10/17 06:28 Monocytes # 0.6 k/uL (0-1.0) 04/10/17 06: Eosinophils # 0.2 k/uL (0-0.7) 04/10/17: Basophils # 0.0 k/uL (0-0.2) 04/10/17 06:28 Sodium 139 mmol/L (137-145) 04/10/17 06:28 Potassium 4.1 mmol/L (3.5-5.1) 04/10/17 06:28 Chloride 113 mmol/L (98-107) H 04/10/17 06:28 Carbon Dioxide 17 mmol/L (22-30) L 04/10/17 06:28 Anion Gap 9 mmol/L 04/10/17 06:28 BUN 5 mg/dL (7-17) L 04/10/17 06:28 Creatinine 0.51 mg/dL (0.52-1.04) L 04/10/17 06:28 Est GFR (MDRD) Af Amer >60 (>60 ml/min/1.73 sqM) 04/10/17 06:28 Est GFR (MDRD) Non-Af >60 (>60 ml/min/1.73 sqM) 04/10/17 06:28 Glucose 67 mg/dL (74-99) L 04/10/17 06:28 POC Glucose (mg/dL) 127 mg/dL (75-99) H 04/10/17 17:10 POC Glu Occ Med Physician ID Jessica Palacios 04/10/17 17:10 Calcium 8.2 mg/dL (8.4-10.2) L 04/10/17 06:28 Phosphorus 2.8 mg/dL (2.5-4.5) 04/09/17 07:01 Magnesium 1.8 mg/dL (1.6-2.3) 04/09/17 07:01 Assessment and Plan Plan: 1. Status post last breast copy gastric sleeve surgery on 04/08/2017 for surgically assisted weight loss program, agent is on DVT prophylaxis and incentive spirometry,opiates for pain control 2. High-grade obstruction in the GE junction status post gastric sleeve surgery , most likely secondary to significant edema, patient remains on nothing by mouth, follow esophagram, antiemesis treatment with Zofran and scopolamine patches, when necessary Phenergan, IV REGLAN IV klflzl-zqp-infvl, patient is followed by general surgery with plans for possibility of EGD in the morning, IV fluids switched to D5 for 5 secondary to mild hypoglycemia 3. BMI of 42 with prior laparoscopic band with 40 pound weight loss in 2009 4. Fibromyalgia 5. Seizure disorder not specified as etiology, not requiring any maintenance medications 6. Migraines on Lopressor 25 mg twice a day 7. Mild hypoglycemia, patient is not on any oral agents, with a prolonged nothing by mouth status, IV fluids will be changed to D5 for 5. Continue Accu- Cheks DVT prophylaxis Lovenox GI prophylaxis on Protonix IV Thank you Dr. Salvador in [facility] care. Patient. We'll going to follow her with you during this current hospital stay, recommendations and adjustments to her treatment would be made on her clinical progress
[2017-04-11 00:09] LABS: Glucose,Whole Blood 123 mg/dL (75-99)
[2017-04-11] MEDS: INSULIN ASPART 100 UNIT/ML 1 ML 10 ML VIAL SQ SCH ×3 (00:44→11:43)
[2017-04-11 01:05] VITALS: RESP 16; TEMP 97.7
[2017-04-11] MEDS: SIMETHICONE 40 MG/0.6 ML DROPS 2,000 MG/30 ML BOTTLE PO PRN (03:04)
[2017-04-11] MEDS: HYOSCYAMINE ORAL DROPS 1.875 MG/15 ML BOTTLE PO PRN (03:46)
[2017-04-11] MEDS: diphenhydrAMINE 50 MG/ML 1 ML VIAL IVP SCH ×3 (05:39→16:29)
[2017-04-11] MEDS: METOCLOPRAMIDE 5 MG/ML 2 ML VIAL IVP SCH ×2 (05:40→11:40)
[2017-04-11] MEDS: ACETAMINOPHEN IV (For NPO) 1,000 MG in EMPTY BAG 1 BAG IVPB SCH ×2 (05:41→11:40)
[2017-04-11 05:51] LABS: Glucose,Whole Blood 131 mg/dL (75-99)
[2017-04-11] MEDS: D5-0.45% NACL WITH KCL 20MEQ/L 1,000 ML IV SCH (06:05)
[2017-04-11 07:19] LABS: Basophils % (A) 0 %; Eosinophils % (A) 0 %; HCT 38.8 % (34.0-46.0); HGB 12.2 gm/dL (11.4-16.0); Lymphocytes # (A) 0.9 k/uL (1.0-4.8); Lymphocytes % (A) 10 %; MCH 30.9 pg (25.0-35.0); MCHC 31.5 g/dL (31.0-37.0); MCV 98.1 fL (80.0-100.0); Mean Platelet Volume 6.4; Monocytes # (A) 0.4 k/uL (0-1.0); Monocytes % (A) 5 %; Neutrophils # (A) 7.1 k/uL (1.3-7.7); Neutrophils % (A) 84 %; Platelet Count 323 k/uL (150-450); RBC 3.95 m/uL (3.80-5.40); RDW 12.9 % (11.5-15.5); WBC 8.4 k/uL (3.8-10.6)
[2017-04-11] MEDS: ALBUTEROL NEBULIZED 2.5 MG/3 ML INHALATION SCH ×3 (07:34→16:43)
[2017-04-11 07:37] LABS: Anion Gap 13 mmol/L; Blood Urea Nitrogen 6 mg/dL (7-17); Calcium 8.9 mg/dL (8.4-10.2); Carbon Dioxide 17 mmol/L (22-30); Chloride 110 mmol/L (98-107); Glucose 118 mg/dL (74-99); Potassium 4.4 mmol/L (3.5-5.1); Sodium 140 mmol/L (137-145)
[2017-04-11] MEDS: ONDANSETRON 4 MG/2 ML VIAL IVP PRN (07:53)
[2017-04-11] MEDS: PANTOPRAZOLE 40 MG/10 ML VIAL IV SCH (07:55)
[2017-04-11] MEDS: FAMOTIDINE 20 MG/2 ML VIAL IV SCH (07:55)
[2017-04-11] MEDS: methylPREDNISolone SOD SUCCI 40 MG/ML 1 ML VIAL IV SCH ×2 (08:03→16:28)
[2017-04-11] MEDS: ENOXAPARIN 40 MG/0.4 ML SYRINGE SQ SCH (09:01)
[2017-04-11] MEDS: LACTATED RINGERS 1,000 ML IV SCH (09:02)
--- NOTE | 2017-04-11 09:02 | FL ---
EXAMINATION TYPE: FL UGI w esophagus DATE OF EXAM: 04/11/2017 COMPARISON: 04/09/2017 HISTORY: Status post Edis fundoplication TECHNIQUE: A single contrast UGI study is performed. FINDINGS: Following the oral administration of contrast the distal esophagus is evaluated. Multiple fluoroscopi c spot images were obtained. No contrast passing beyond the surgery site was evident. This had the ap pearance similar to the comparison 04/09/2017. The patient was returned to the wheelchair and a 5 minute delay was performed. Overhead radiographs w ith upright AP and lateral views were obtained. Contrast within the stomach as well as remaining with in the distal esophagus. Repeat fluoroscopic imaging was performed. With difficulty small amount of contrast was observed pass ing through the surgery site into the stomach. No free air is evident at this time. IMPRESSIONS: 1. Severe hesitancy of contrast passing through the distal esophagus into the stomach.
--- NOTE | 2017-04-11 09:03 | P.PN ---
Subjective Progress Note Date: 04/11/17 41-year-old female seen and examined just returned from having a repeat upper GI follow-through. Patient reports she continues to have difficulty in swallowing her own saliva. Upper GI done on April 09 showed non-passage of barium beyond the proximal sleeve Reports having a difficult time with severe heartburn sensation with a nausea sensation white count this morning 8.4 afebrile Patient's postop 08 of April laparoscopic removal of adjustable gastric band and components, laparoscopic sleeve gastrectomy for morbid obesity weight loss Objective - Vital Signs Vital signs: Vital Signs Temp 97.7 F 04/11/17 00:06 Pulse 80 04/11/17 07:46 Resp 16 04/11/17 07:00 BP 150/89 04/11/17 07:00 Pulse Ox 98 04/11/17 07:34 Intake & Output 04/10/17 04/11/17 04/11/17 18:59 06:59 18:59 Intake Total 0 1300 Balance 0 1300 Intake: Intake, IV Titration 1300 Amount D5-0.45% NaCl with KCl 500 20Meq/l 1,000 ml @ 100 mls/hr IV .Q10H [facility] Rx#: [id number] Dextrose 5%-0.45% NaCl 1, 800 000 ml @ 100 mls/hr IV . Q10H [facility] Rx#:[id number] Oral 0 Other: # Voids 1 3 - Exam Exam Abdomen surgical incision sites dry soft not distended mild tenderness states belching one bowel movement yesterday reports a heartburn sensation - Labs CBC & Chem 7: 04/11/17 06:45 04/11/17 06:45 Labs: Abnormal Lab Results - Last 24 Hours (Table) 04/10/17 04/11/17 04/11/17 Range/Units 17:10 00:04 05:47 Lymphocytes # (1.0-4.8) k/uL Chloride (98-107) mmol/L Carbon Dioxide (22-30) mmol/L BUN (7-17) mg/dL Creatinine (0.52-1.04) mg/dL Glucose (74-99) mg/dL POC Glucose (mg/dL) 127 H 123 H 131 H (75-99) mg/dL 04/11/17 04/11/17 Range/Units 06:45 06:45 Lymphocytes # 0.9 L (1.0-4.8) k/uL Chloride 110 H (98-107) mmol/L Carbon Dioxide 17 L (22-30) mmol/L BUN 6 L (7-17) mg/dL Creatinine 0.51 L (0.52-1.04) mg/dL Glucose 118 H (74-99) mg/dL POC Glucose (mg/dL) (75-99) mg/dL Assessment and Plan Assessment: Impression Morbid obesity due to excessive calories Status post 08 of April laparoscopic sleeve gastrectomy, removal of adjusted gastric band and components History of migraines History of a seizure disorder History of fibromyalgia high -grade obstruction at the gastroesophageal junction post gastric sleeve plan await results from repeat UGI keep NPO further rec pending
--- NOTE | 2017-04-11 09:06 | P.PN ---
Objective - Vital Signs Vital signs: Vital Signs Temp 97.7 F 04/11/17 00:06 Pulse 80 04/11/17 07:46 Resp 16 04/11/17 07:00 BP 150/89 04/11/17 07:00 Pulse Ox 98 04/11/17 07:34 Intake & Output 04/10/17 04/11/17 04/11/17 18:59 06:59 18:59 Intake Total 0 1300 Balance 0 1300 Intake: Intake, IV Titration 1300 Amount D5-0.45% NaCl with KCl 500 20Meq/l 1,000 ml @ 100 mls/hr IV .Q10H [facility] Rx#: [id number] Dextrose 5%-0.45% NaCl 1, 800 000 ml @ 100 mls/hr IV . Q10H [facility] Rx#:[id number] Oral 0 Other: # Voids 1 3 - Labs CBC & Chem 7: 04/11/17 06:45 04/11/17 06:45 Labs: Abnormal Lab Results - Last 24 Hours (Table) 04/10/17 04/11/17 04/11/17 Range/Units 17:10 00:04 05:47 Lymphocytes # (1.0-4.8) k/uL Chloride (98-107) mmol/L Carbon Dioxide (22-30) mmol/L BUN (7-17) mg/dL Creatinine (0.52-1.04) mg/dL Glucose (74-99) mg/dL POC Glucose (mg/dL) 127 H 123 H 131 H (75-99) mg/dL 04/11/17 04/11/17 Range/Units 06:45 06:45 Lymphocytes # 0.9 L (1.0-4.8) k/uL Chloride 110 H (98-107) mmol/L Carbon Dioxide 17 L (22-30) mmol/L BUN 6 L (7-17) mg/dL Creatinine 0.51 L (0.52-1.04) mg/dL Glucose 118 H (74-99) mg/dL POC Glucose (mg/dL) (75-99) mg/dL Assessment and Plan Assessment: Impression Morbid obesity due to excessive calories Status post 08 of April laparoscopic sleeve gastrectomy, removal of adjusted gastric band and components History of migraines History of a seizure disorder History of fibromyalgia high -grade obstruction at the gastroesophageal junction post gastric sleeve plan await results from repeat UGI keep NPO further rec pending Progress note dictated for dr escalona The above impression and plan of care have been discussed and directed by signing physician. Arlene Hudson nurse practitioner acting as scribe for signing physician.
[2017-04-11 11:46] LABS: Glucose,Whole Blood 122 mg/dL (75-99)
[2017-04-11] MEDS: SUCRALFATE 1 GM TAB PO SCH ×2 (13:55→16:31)
[2017-04-11 15:07] VITALS: BP 120/67; PULSE 67
--- NOTE | 2017-04-11 16:54 | P.DS ---
Providers Date of admission: 04/08/17 07:56 Expected date of discharge: 04/11/17 Attending physician: Wellington Salvador Consults: 04/08/17 10:59 Consult Physician Routine Consulting Provider: Rosibel Lei Consult Reason/Comments: medical mangement Do you want consulting provider notified?: Yes Primary care physician: Stated None Hospital Course: This is a 41-year-old female who underwent sleeve gastrectomy. Patient issues with dysphagia and GERD secondary to edema of her sleeve. The edema gradually resolved with conservative therapy. Patient was discharged home tolerating clear liquids. Procedures: Laparoscopic sleeve gastrectomy Patient Condition at Discharge: Good Plan - Discharge Summary Discharge Rx Participant: Yes New Discharge Prescriptions: New Bisacodyl [Dulcolax] 5 mg PO DAILY PRN #10 tablet. PRN Reason: Constipation Ondansetron Odt [Zofran Odt] 4 mg PO Q8HR PRN #9 tab PRN Reason: Nausea Simethicone 40 mg/0.6 ml Drops [Mylicon Drops] 40 mg PO PCHS PRN #30 ml PRN Reason: Gas HYDROcodone/APAP 7.5-325MG [[place] 7.5] 1 each PO Q4H PRN #30 tab PRN Reason: Pain Omeprazole 40 mg PO DAILY #60 capsule. No Action Metoprolol Tartrate [Lopressor] 25 mg PO BID Aspirin EC [Ecotrin Low Dose] 81 mg PO DAILY Acetaminophen [Tylenol] 325 mg PO Q4H PRN PRN Reason: Headache Discharge Medication List Metoprolol Tartrate [Lopressor] 25 mg PO BID 09/12/16 [History] Aspirin EC [Ecotrin Low Dose] 81 mg PO DAILY 12/28/16 [History] Acetaminophen [Tylenol] 325 mg PO Q4H PRN 03/29/17 [History] Bisacodyl [Dulcolax] 5 mg PO DAILY PRN #10 tablet. 04/08/17 [Rx] HYDROcodone/APAP 7.5-325MG [[place] 7.5] 1 each PO Q4H PRN #30 tab 04/08/17 [Rx] Omeprazole 40 mg PO DAILY #60 capsule. 04/08/17 [Rx] Ondansetron Odt [Zofran Odt] 4 mg PO Q8HR PRN #9 tab 04/08/17 [Rx] Simethicone 40 mg/0.6 ml Drops [Mylicon Drops] 40 mg PO HS PRN #30 ml [Rx] Follow up Appointment(s)/Referral(s): [facility],. [NON-STAFF] - 1 Week Patient Instructions/Handouts: Laparoscopic Sleeve Gastrectomy (DC)
--- NOTE | 2017-04-12 08:44 | P.PN ---
Subjective Progress Note Date: 04/11/17 This Is a pleasant [address] Horton patient has underlying history of fibromyalgia, morbid obesity, migraines, episode of seizure with unknown cause solitary occurred in December 2016, not requiring any medications , and has no relapse. She underwent laparoscopic gastric sleeve on 04/08/[address] Teresa Arreguni, for surgical assisted weight loss program. She had laparoscopic banding surgery in 2009 with subsequent 40 pound weight loss. She had troubles overnight with regards to swallowing, she has vomiting, has difficulty in swallowing her own saliva, she had a routine esophagram this morning that shows high-grade obstruction at the level of GE junction doubt any extravasation of contrast or constricting disease, patient remains to be comfortable with last emesis 15 minutes prior to my valuation. She has problems overnight requiring Vistaril scopolamine patch and Zofran she had few episodes of small volume hematemesis. White cell count is 11,000, no fevers 04/10: Patient is significantly better. However, she has pwcajb-bee-xnbjf scopolamine patch and Reglan jzvwhx-lng-kcieu, last nausea and vomiting was 2 AM , patient is on Solu-Medrol that seed, Benadryl, anticipating stability of endoscopy in the morning, EGD Dr. Salvador 04/11: Patient states she is feeling better in general and heartburn is improved. She did take some small bouts of sherbet about half hour ago. She had a bowel movement this morning. She denies having any abdominal pain. Objective - Vital Signs Vital signs: Vital Signs Temp 97.7 F 04/11/17 15:00 Pulse 67 04/11/17 15:00 Resp 16 04/11/17 15:00 BP 120/67 04/11/17 15:00 Pulse Ox 98 04/11/17 15:00 Intake & Output 04/10/17 04/11/17 04/11/17 18:59 06:59 18:59 Intake Total 0 1300 800 Balance 0 1300 800 Intake: Intake, IV Titration 1300 800 Amount D5-0.45% NaCl with KCl 500 800 20Meq/l 1,000 ml @ 100 mls/hr IV .Q10H [facility] Rx#: [id number] Dextrose 5%-0.45% NaCl 1, 800 000 ml @ 100 mls/hr IV . Q10H [facility] Rx#:[id number] Oral 0 Other: # Voids 1 3 2 - Exam General appearance: Present: cooperative, no acute distress - EENT Eyes: Present: anicteric sclerae, EOMI, PERRLA, dentition normal, normal appearance ENT: Present: NA/AT, normal oropharynx - Neck Neck: Present: normal ROM - Respiratory Respiratory: bilateral: CTA, negative: diminished, dullness, rales, rhonchi - Cardiovascular Rhythm: regular Abnormal Heart Sounds: Absent: systolic murmur, diastolic murmur, rub, S3 Gallop , S4 Gallop, click, other - Gastrointestinal General gastrointestinal: Present: normal bowel sounds, soft - Integumentary Integumentary: Present: normal, normal turgor - Neurologic Neurologic: Present: CNII-XII intact, focal deficits - Musculoskeletal Musculoskeletal: Present: gait normal, strength equal bilaterally - Psychiatric Psychiatric: Present: A&O x's 3, appropriate affect, intact judgment & insight - Labs CBC & Chem 7: 04/11/17 06:45 04/11/17 06:45 Labs: Abnormal Lab Results - Last 24 Hours (Table) 04/10/17 04/11/17 04/11/17 Range/Units 17:10 00:04 05:47 Lymphocytes # (1.0-4.8) k/uL Chloride (98-107) mmol/L Carbon Dioxide (22-30) mmol/L BUN (7-17) mg/dL Creatinine (0.52-1.04) mg/dL Glucose (74-99) mg/dL POC Glucose (mg/dL) 127 H 123 H 131 H (75-99) mg/dL 04/11/17 04/11/17 04/11/17 Range/Units 06:45 06:45 11:43 Lymphocytes # 0.9 L (1.0-4.8) k/uL Chloride 110 H (98-107) mmol/L Carbon Dioxide 17 L (22-30) mmol/L BUN 6 L (7-17) mg/dL Creatinine 0.51 L (0.52-1.04) mg/dL Glucose 118 H (74-99) mg/dL POC Glucose (mg/dL) 122 H (75-99) mg/dL Assessment and Plan Plan: 1. Status post gastric sleeve surgery on 04/08/2017 for surgically assisted weight loss program, agent is on DVT prophylaxis and incentive spirometry, opiates for pain control 2. High-grade obstruction in the GE junction status post gastric sleeve surgery , most likely secondary to significant edema, resolving 3. BMI of 42 with prior laparoscopic band with 40 pound weight loss in 2009 4. Fibromyalgia 5. Seizure disorder not specified as etiology, not requiring any maintenance medications 6. Migraines on Lopressor 25 mg twice a day 7. Mild hypoglycemia, patient is not on any oral agents, with a prolonged nothing by mouth status, IV fluids will be changed to D5 for 5. Continue Accu- Cheks DVT prophylaxis Lovenox GI prophylaxis on Protonix Discharge plan: Return home Impression and plan of care have been directed as dictated by the signing physician. Raquel Andujar nurse practitioner acting as scribe for signing physician.
--- NOTE | 2017-04-15 08:10 | P.OP ---
Date of Procedure: 04/08/17 Preoperative Diagnosis: Dysphagia, GERD Morbid obesity Postoperative Diagnosis: Dysphagia,. Morbid obesity Procedure(s) Performed: laparoscopic removal LAP-BAND system Laparoscopic sleeve gastrectomy Anesthesia: SAI Surgeon: Wellington Salvador Estimated Blood Loss (ml): 10 Pathology: other (Stomach) Condition: stable Disposition: PACU Description of Procedure: The patient's placed on the operating table in the dorsal 5 position. She received general anesthesia. Her abdomen was prepped and draped usual fashion. The skin was anesthetized at the LAP-BAND port site and then using a 11 blade the skin was incised. Using blunt and sharp dissection with cautery the LAP- BAND port was dissected free from some taste tissues. The port was then cut at the connecting tube and the port was then withdrawn. Using a 5 mm optical trocar under direct visualization the perineal cavity is entered. The laparoscope was placed. Cavity. And then a 5 mm trochars placed in the right and left lateral positions. A 15 mm trocar is placed in the supraumbilical position. And another 5 mm trocar was placed in the right epigastric position. The left lateral lobe liver was retracted. The LAP-BAND device was seen. There adhesions between the stomach and liver and these were lysed using sharp dissection. The adhesions to the LAP-BAND device were lysed. The LAP-BAND device was then dissected free from stomach. The anterior gastric wall plication was taken down using sharp dissection. Care was taken to identify and preserve the gastric wall. The LAP-BAND device was then cut and withdrawn from the stomach and extracted through the 15 mm trocar site. The greater curvature of the stomach was then dissected using the Harmonic scissors. The dissection occurred approximately 5 cm from the pylorus to the level of the left nahum. There was no hiatal hernia seen. At this point a 40- [place] bougie dilator was placed the oropharynx and passed into the esophagus and into the stomach by the PLODDING MACHINE OPERATOR. The sleeve gastrectomy was performed by using the powered echelon stapler with a seam guard buttress material. Sequential firings of the stapler were performed. The gastric remnant was then brought out through the 15 mm trocar site. The dilator was withdrawn. And a orogastric tube was replaced into the stomach. The stomach was insufflated with 200 mL of methylene blue normal saline. There was no evidence of extravasation. The abdomen was irrigated there is no bleeding seen. The Curt -Elly device was used to close the 15 mm trocar with 0 Vicryl. Skin was closed with interrupted 3-0 Monocryl sutures once the trochars withdrawn. Dermabond dressing was applied. Patient was sent to recovery in stable condition.
== END 2017-04-11 18:03 | disposition home or self-care (01) | DRG 327 ==
LOC: 2ORWHC 07:56 → 3SUR 10:47
PROVIDERS: ADMIT Surgery; ATTEND Surgery
PROC: 0DB64Z3 Excision of Stomach, Percutaneous Endoscopic Approach, Vertical (ICD-10-PCS; principal; 2017-04-08 09:20)
PROC: 0DP64CZ Removal of Extraluminal Device from Stomach, Percutaneous Endoscopic Approach (ICD-10-PCS; 2017-04-08 09:20)
DX: K95.09 Other complications of gastric band procedure (principal); Z68.41 Body mass index [BMI] 40.0-44.9, adult; K92.0 Hematemesis; E66.01 Morbid (severe) obesity due to excess calories; K21.9 Gastro-esophageal reflux disease without esophagitis; I10 Essential (primary) hypertension; R60.9 Edema, unspecified; R13.10 Dysphagia, unspecified; M79.7 Fibromyalgia; G40.909 Epilepsy, unspecified, not intractable, without status epilepticus; G43.909 Migraine, unspecified, not intractable, without status migrainosus; Z79.82 Long term (current) use of aspirin; Z79.899 Other long term (current) drug therapy; Z90.49 Acquired absence of other specified parts of digestive tract; Y83.2 Surgical operation with anastomosis, bypass or graft as the cause of abnormal reaction of the patient, or of later complication, without mention of misadventure at the time of the procedure
CPT/HCPCS: 74240; 80048; 80051; 82310; 82565; 83735; 84100; 84520; 85025; 88307; 94640; 94760; 94762

== ENCOUNTER → 2017-04-18 | Outpatient (CLI) | payer BC ==
[2017-04-18 13:16] VITALS: BP 146/80; PULSE 82; TEMP 97.7; BMI 39.0
--- NOTE | 2017-04-18 14:59 | P.HPBAR ---
Bariatric H&P - History & Physicial H&P Date: 04/18/17 History & Physicial: Visit/CC: two week follow up Patient initial contact: Initial weight: 113.398 kg Initial weight in pounds: 250.00 Height: 5 ft 4.5 in Initial BMI: 42.2 Last weight: Current weight: 104.825 kg Current weight in pounds: 231.10 Current BMI: 39.0 [place] body weight (based on NIH guidelines): 55.565 kg Excess body weight loss: 14.8% The patient is a 41 year-old F who presents for Bariatric Assessment. Patient resents today for sleeve gastrectomy follow-up. She's had some minimal complaints of dysphagia. Past Medical History Past Medical History: Fibromyalgia Additional Past Medical History / Comment(s): migraines, elevated HR, seizure of [place] cause in December 2016, History of Any Multi-Drug Resistant Organisms: None Reported Past Surgical History: Bariatric Surgery, Cholecystectomy Additional Past Surgical History / Comment(s): lab band 2009, invitro fertilization, metatarsus abduction surgery at age 6 sleeve gastrectomy 04-08-17 Past Anesthesia/Blood Transfusion Reactions: Postoperative Nausea & Vomiting ( PONV) Additional Past Anesthesia/Blood Transfusion Reaction / Comm: no hx of blood transfusion Past Psychological History: No Psychological Hx Reported Smoking Status: Never smoker Past Alcohol Use History: None Reported Past Drug Use History: None Reported - Past Family History Mother Family Medical History: Cancer, Hypertension Additional Family Medical History / Comment(s): Breast CA Brother(s) Family Medical History: No Reported History Father History Unknown: Yes Additional Family Medical History / Comment(s): father of suicide . Surgical - Exam Vital Signs Temp Pulse BP 97.7 F 82 146/80 04/18/17 13:12 04/18/17 13:12 04/18/17 13:12 - General well developed - Eyes PERRL - ENT normal pinna - Neck no masses - Respiratory normal expansion - Cardiovascular Rhythm: regular - Abdomen Abdomen: soft, non tender Bariatric Assessment & Plan Plan: Status post sleeve yesterday. Patient is a well. She'll follow-up in 2 weeks. Bariatric Checklist Checklist: Plan: Checklist: EGD: 1. Hiatal hernia: 2. H. Pylori: HgbA1c: Vitamin D: Smoking: Never smoker Primary care physician referral: DR. ACUNA Psychiatry clearance: Cardiology clearance: Sleep study: Diet journal: VTE risk score: VTE risk level: Rehab needs at discharge:
== END | disposition home or self-care (01) ==
LOC: BARWHC3 12:56
PROVIDERS: ATTEND Surgery
DX: Z48.815 Encounter for surgical aftercare following surgery on the digestive system (principal); E66.01 Morbid (severe) obesity due to excess calories; Z68.39 Body mass index [BMI] 39.0-39.9, adult; Z98.84 Bariatric surgery status; Z90.49 Acquired absence of other specified parts of digestive tract
CPT/HCPCS: 97803; 99211

== ENCOUNTER → 2017-05-02 | Outpatient (CLI) | payer BC ==
[2017-05-02 15:39] VITALS: BP 121/82; PULSE 68; RESP 16; TEMP 97.7
[2017-05-02 15:56] VITALS: BMI 38.6
--- NOTE | 2017-05-02 16:02 | P.HPBAR ---
Bariatric H&P - History & Physicial H&P Date: 05/02/17 History & Physicial: Visit/CC: post sleeve Patient initial contact: Initial weight: 113.398 kg Initial weight in pounds: 250.00 Height: 5 ft 4.5 in Initial BMI: 59.1 Last weight: Current weight: 103.782 kg Current weight in pounds: 228.50 Current BMI: 38.6 [place] body weight (based on NIH guidelines): 55.792 kg Excess body weight loss: 12.1% The patient is a 41 year-old F who presents for Bariatric Assessment. The patient presents today for sleeve gastrectomy follow-up. She has some complaints of minimal GERD. She denies any dysphagia. She's loss was 3 pounds since her last visit. Past Medical History Past Medical History: Fibromyalgia Additional Past Medical History / Comment(s): migraines, elevated HR, seizure of [place] cause in December 2016, History of Any Multi-Drug Resistant Organisms: None Reported Past Surgical History: Bariatric Surgery, Cholecystectomy Additional Past Surgical History / Comment(s): lab band 2009, invitro fertilization, metatarsus abduction surgery at age 6 sleeve gastrectomy 04-08-17 Past Anesthesia/Blood Transfusion Reactions: Postoperative Nausea & Vomiting ( PONV) Additional Past Anesthesia/Blood Transfusion Reaction / Comm: no hx of blood transfusion Past Psychological History: No Psychological Hx Reported Smoking Status: Never smoker Past Alcohol Use History: None Reported Past Drug Use History: None Reported - Past Family History Mother Family Medical History: Cancer, Hypertension Additional Family Medical History / Comment(s): Breast CA Brother(s) Family Medical History: No Reported History Father History Unknown: Yes Additional Family Medical History / Comment(s): father of suicide . Surgical - Exam Vital Signs Temp Pulse Resp BP 97.7 F 68 16 121/82 05/02/17 15:36 05/02/17 15:36 05/02/17 15:36 05/02/17 15:36 - General well developed, no distress - Eyes PERRL - ENT normal pinna - Neck no masses - Respiratory normal expansion - Cardiovascular Rhythm: regular - Abdomen Abdomen: soft, non tender Bariatric Assessment & Plan Plan: Patient status post sleeve gastrectomy. She is doing quite well. She'll follow -up in one month. Bariatric Checklist Checklist: Plan: Checklist: EGD: 1. Hiatal hernia: 2. H. Pylori: HgbA1c: Vitamin D: Smoking: Never smoker Primary care physician referral: DR. ACUNA Psychiatry clearance: Cardiology clearance: Sleep study: Diet journal: VTE risk score: VTE risk level: Rehab needs at discharge:
== END | disposition home or self-care (01) ==
LOC: BARWHC3 15:14
PROVIDERS: ATTEND Surgery
DX: Z48.815 Encounter for surgical aftercare following surgery on the digestive system (principal); E66.01 Morbid (severe) obesity due to excess calories; Z71.3 Dietary counseling and surveillance; Z68.38 Body mass index [BMI] 38.0-38.9, adult; Z98.84 Bariatric surgery status
CPT/HCPCS: 97803; 99211

== ENCOUNTER → 2017-06-06 | Outpatient (CLI) | payer BC ==
[2017-06-06 14:40] VITALS: BP 124/65; PULSE 62; RESP 15; TEMP 98.6; BMI 36.8
[2017-06-06 15:08] LABS: HCT 40.8 % (34.0-46.0); HGB 12.9 gm/dL (11.4-16.0); MCH 30.1 pg (25.0-35.0); MCHC 31.5 g/dL (31.0-37.0); MCV 95.5 fL (80.0-100.0); Mean Platelet Volume 6.5; Platelet Count 405 k/uL (150-450); RBC 4.27 m/uL (3.80-5.40); RDW 13.1 % (11.5-15.5); WBC 6.3 k/uL (3.8-10.6)
[2017-06-06 15:27] LABS: ALT 29 U/L (9-52); AST 16 U/L (14-36); Albumin 4.1 g/dL (3.5-5.0); Alkaline Phosphatase 73 U/L (38-126); Anion Gap 11 mmol/L; Blood Urea Nitrogen 11 mg/dL (7-17); Calcium 9.6 mg/dL (8.4-10.2); Carbon Dioxide 27 mmol/L (22-30); Chloride 108 mmol/L (98-107); Glucose 88 mg/dL (74-99); Potassium 4.7 mmol/L (3.5-5.1); Sodium 146 mmol/L (137-145); Total Bilirubin 0.3 mg/dL (0.2-1.3); Total Protein 6.3 g/dL (6.3-8.2)
[2017-06-07 00:47] LABS: Vitamin D 25 Hydroxy 20.9 ng/mL (30.0-100.0)
--- NOTE | 2017-06-17 13:18 | P.HPBAR ---
Bariatric H&P - History & Physicial H&P Date: 06/06/17 History & Physicial: Visit/CC: sleeve one month f/u Patient initial contact: Initial weight: 113.398 kg Initial weight in pounds: 250.00 Height: 5 ft 4.5 in Initial BMI: 42.2 Last weight: 228 Current weight: 98.974 kg Current weight in pounds: 218.20 Current BMI: 36.8 [place] body weight (based on NIH guidelines): 55.565 kg Excess body weight loss: 24.9% The patient is a 41 year-old F who presents for Bariatric Assessment.patient presents today for sleeve follow-up. She has complaints of GERD and some mild dysphagia. She's had excellent weight loss. Past Medical History Past Medical History: Fibromyalgia Additional Past Medical History / Comment(s): migraines, elevated HR, seizure of [place] cause in December 2016, History of Any Multi-Drug Resistant Organisms: None Reported Past Surgical History: Bariatric Surgery, Cholecystectomy Additional Past Surgical History / Comment(s): lab band 2009, invitro fertilization, metatarsus abduction surgery at age 6 sleeve gastrectomy 04-08-17 Past Anesthesia/Blood Transfusion Reactions: Postoperative Nausea & Vomiting ( PONV) Additional Past Anesthesia/Blood Transfusion Reaction / Comm: no hx of blood transfusion Past Psychological History: No Psychological Hx Reported Smoking Status: Never smoker Past Alcohol Use History: None Reported Past Drug Use History: None Reported - Past Family History Mother Family Medical History: Cancer, Hypertension Additional Family Medical History / Comment(s): Breast CA Brother(s) Family Medical History: No Reported History Father History Unknown: Yes Additional Family Medical History / Comment(s): father of suicide . Surgical - Exam Vital Signs Temp Pulse Resp BP 98.6 F 62 15 124/65 06/06/17 13:43 06/06/17 13:43 06/06/17 13:43 06/06/17 13:43 - General well developed, no distress - Eyes PERRL - ENT normal pinna - Neck no masses - Abdomen Abdomen: soft, non tender Results - Labs 06/06/17 14:57 06/06/17 14:57 Bariatric Assessment & Plan Plan: status post sleeve gastrectomy. Patient has some GERD and dysphagia. Patient is scheduled for EGD and esophagram. Bariatric Checklist Checklist: Plan: Checklist: EGD: 1. Hiatal hernia: 2. H. Pylori: HgbA1c: Vitamin D: Smoking: Never smoker Primary care physician referral: jocelyn douglas ([facility]) Psychiatry clearance: Cardiology clearance: Sleep study: Diet journal: VTE risk score: VTE risk level: Rehab needs at discharge:
== END | disposition home or self-care (01) ==
LOC: BARWHC3 13:35
PROVIDERS: ATTEND Surgery
DX: Z09 Encounter for follow-up examination after completed treatment for conditions other than malignant neoplasm (principal); K21.9 Gastro-esophageal reflux disease without esophagitis; M79.7 Fibromyalgia; G43.909 Migraine, unspecified, not intractable, without status migrainosus; E55.9 Vitamin D deficiency, unspecified; G40.909 Epilepsy, unspecified, not intractable, without status epilepticus; Z90.49 Acquired absence of other specified parts of digestive tract; Z98.84 Bariatric surgery status
CPT/HCPCS: 36415; 80053; 82306; 82607; 84425; 85027; 99211

== ENCOUNTER 2017-06-17 08:07 | Day surgery (SDC) | payer BC ==
[2017-06-15 11:39] VITALS: BMI 35.6
[~2017-06-17 08:07] MED LIST changes: -ENOXAPARIN 40 MG/0.4 ML SYRINGE SQ ONE; +LACTATED RINGERS 1,000 ML IV SCH; +LIDOCAINE 1% 20 ML VIAL (10MG/ML) FOR IV START INTRADERMA PRN; +MIDAZOLAM 2 MG/2 ML VIAL IV PRN; -ceFAZolin IN SWFI 2 GM/20 ML SYRINGE IVP ONE
[2017-06-17 08:30] VITALS: RESP 16; TEMP 97.8
--- NOTE | 2017-06-17 08:52 | P.GSHP ---
History of Present Illness H&P Date: 06/17/17 Chief Complaint: Dysphagia This is a 41-year-old female who's had complaints of dysphagia. Patient will stay today for EGD. She has a History of sleeve gastrectomy. Past Medical History Past Medical History: Fibromyalgia Additional Past Medical History / Comment(s): migraines, elevated HR, seizure of UNKNWN cause in December 2016 (ONLY HAD ONE EPISODE) History of Any Multi-Drug Resistant Organisms: None Reported Past Surgical History: Bariatric Surgery, Cholecystectomy Additional Past Surgical History / Comment(s): lab band 2009, invitro fertilization, metatarsus abduction surgery at age 6, sleeve gastrectomy , EGD Past Anesthesia/Blood Transfusion Reactions: Postoperative Nausea & Vomiting ( PONV) Additional Past Anesthesia/Blood Transfusion Reaction / Comment(s): no hx of blood transfusion Smoking Status: Never smoker - Past Family History Mother Family Medical History: Cancer, Hypertension Additional Family Medical History / Comment(s): Breast CA Brother(s) Family Medical History: No Reported History Father History Unknown: Yes Additional Family Medical History / Comment(s): father of suicide . Medications and Allergies Home Medications Medication Instructions Recorded Confirmed Type Metoprolol Tartrate [Lopressor] 25 mg PO BID 09/12/16 06/17/17 History Acetaminophen [Tylenol] 325 mg PO Q4H PRN 03/29/17 06/17/17 History Allergies Allergy/AdvReac Type Severity Reaction Status Date / Time No Known Allergies Allergy Verified 06/15/17 11:35 Surgical - Exam Vital Signs Temp Pulse Resp BP Pulse Ox 97.8 F 62 16 125/80 97 06/17/17 08:28 06/17/17 08:28 06/17/17 08:28 06/17/17 08:28 06/17/17 08:28 - General well developed, no distress - Eyes PERRL - ENT normal pinna - Neck no masses - Respiratory normal expansion - Cardiovascular Rhythm: regular - Abdomen Abdomen: soft, non tender Assessment and Plan Assessment: Dysphagia, we'll perform EGD with possible balloon dilatation.
[2017-06-17] MEDS ORDERED: LIDOCAINE 1% INJ 10MG/ML (20 ML MDV) ONE (08:53)
[2017-06-17] MEDS ORDERED: PROPOFOL 10 MG/ML 20 ML VIAL IV ONE (08:53)
--- NOTE | 2017-06-17 09:12 | P.OP ---
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 She received IV sedation. The gastroscope placed oropharynx and passed in the esophagus and into the stomach. The scope was then placed through the pylorus into the first and second portion duodenum. The duodenum appeared normal. The scope was then brought back the antrum there was no significant gastritis. Scope was then brought back through the sleeve and in the proximal gastric sleeve there appeared to be a slight stricture. The 20 mm balloon was placed across the area of the presumed stricture. This was dilated. The balloon was held position for 3 minutes sequentially 3 times. Scope was then brought back and there was evidence of esophagitis this area was biopsied in the distal esophagus. There is no significant hiatal hernia. The proximal esophagus appeared normal. Scope was withdrawn for patient.
[2017-06-17 09:42] VITALS: BP 127/85; PULSE 55
== END 2017-06-17 10:03 | disposition home or self-care (01) ==
LOC: ORWHC2ENDO 08:07
PROVIDERS: ATTEND Surgery
DX: K31.89 Other diseases of stomach and duodenum (principal); K21.0 Gastro-esophageal reflux disease with esophagitis; B49 Unspecified mycosis; Z98.84 Bariatric surgery status; M79.7 Fibromyalgia; I25.10 Atherosclerotic heart disease of native coronary artery without angina pectoris; I10 Essential (primary) hypertension; I25.2 Old myocardial infarction; Z79.899 Other long term (current) drug therapy
CPT/HCPCS: 81025; 88305; 88312; 43239; 43245; J2001; J2704; C1726; 43249

== ENCOUNTER 2017-07-02 22:21 | Emergency (ER) | payer BC ==
[2017-07-02 23:39] LABS: Cocaine Screen,Urine Not Detected (NotDetected); Opiate Screen,Urine Detected (NotDetected); Phencyclidine Screen,Urine Not Detected (NotDetected); Urn Cannabinoid Scrn Detected (NotDetected)
[2017-07-02 23:40] LABS: Amphetamine Screen,Urine Not Detected (NotDetected); Barbiturate Screen,Urine Not Detected (NotDetected); Benzodiazepines Screen,Urine Not Detected (NotDetected); Methadone Screen, Urine Not Detected (NotDetected); Oxycodone Screen, Urine Not Detected (NotDetected); Tricyclic Antidepressant,Urine Not Detected (NotDetected)
--- NOTE | 2017-07-03 02:34 | ED ---
General Adult HPI - General Chief complaint: Psychiatric Symptoms Stated complaint: mental health Time Seen by Provider: 07/02/17 22:25 Source: patient, police, RN notes reviewed Mode of arrival: ambulatory Limitations: no limitations - History of Present Illness Initial comments: This is a 41-year-old female presents emergency department stating she was having some suicidal thoughts today. Patient states she has been having some problems with her and under a lot of stress lately. Patient states she' s thinking about driving her car into a tree. Patient states she is so stressed out he doesn't want to do. Patient denies any physical complaints today. Patient denies taking any illegal drugs today. Patient denies any drinking. Patient denies any suicide attempt today. Patient denies any chest pain or abdominal pain. Patient denies any headache. Patient denies any recent fever chills or cough. - Related Data Home Medications Medication Instructions Recorded Confirmed Metoprolol Tartrate [Lopressor] 25 mg PO BID 09/12/16 07/02/17 Acetaminophen [Tylenol] 325 mg PO Q4H PRN 03/29/17 07/02/17 Previous Rx's Medication Instructions Recorded Omeprazole 40 mg PO DAILY #60 capsule. 06/17/17 Sucralfate [Carafate] 1 gm PO BID #60 ml 06/17/17 Allergies Allergy/AdvReac Type Severity Reaction Status Date / Time No Known Allergies Allergy Verified 07/02/17 22:51 Review of Systems ROS Statement: Those systems with pertinent positive or pertinent negative responses have been documented in the HPI. ROS Other: All systems not noted in ROS Statement are negative. Past Medical History Past Medical History: GERD/Reflux Additional Past Medical History / Comment(s): migraines, elevated HR, seizure of UNKNWN cause in December 2016 (ONLY HAD ONE EPISODE) History of Any Multi-Drug Resistant Organisms: None Reported Past Surgical History: Orthopedic Surgery Additional Past Surgical History / Comment(s): lab band 2009, invitro fertilization, metatarsus abduction surgery at age 6, sleeve gastrectomy , EGD Past Anesthesia/Blood Transfusion Reactions: Postoperative Nausea & Vomiting ( PONV) Additional Past Anesthesia/Blood Transfusion Reaction / Comment(s): no hx of blood transfusion Past Psychological History: Depression Smoking Status: Never smoker Past Alcohol Use History: None Reported Past Drug Use History: None Reported - Past Family History Mother Family Medical History: Cancer, Hypertension Additional Family Medical History / Comment(s): Breast CA Brother(s) Family Medical History: No Reported History Father History Unknown: Yes Additional Family Medical History / Comment(s): father of suicide . General Exam - General Exam Comments Initial Comments: GENERAL: Patient is well-developed and well-nourished. Patient is nontoxic and well- hydrated and is in mild distress. ENT: Neck is soft and supple. No significant lymphadenopathy is noted. Oropharynx is clear. Moist mucous membranes. Neck has full range of motion without eliciting any pain. EYES: The sclera were anicteric and conjunctiva were pink and moist. Extraocular movements were intact and pupils were equal round and reactive to light. Eyelids were unremarkable. PULMONARY: Unlabored respirations. Good breath sounds bilaterally. No audible rales rhonchi or wheezing was noted. CARDIOVASCULAR: There is a regular rate and rhythm without any murmurs gallops or rubs. ABDOMEN: Soft and nontender with normal bowel sounds. No palpable organomegaly was noted. There is no palpable pulsatile mass. SKIN: Skin is clear with no lesions or rashes and otherwise unremarkable. NEUROLOGIC: Patient is alert and oriented x3. Cranial nerves II through XII are grossly intact. Motor and sensory are also intact. Normal speech, volume and content. Symmetrical smile. MUSCULOSKELETAL: Normal extremities with adequate strength and full range of motion. No lower extremity swelling or edema. No calf tenderness. LYMPHATICS: No significant lymphadenopathy is noted PSYCHIATRIC: Patient is tearful and does admit that she was having thoughts of suicide today Limitations: no limitations Course Vital Signs 07/02/17 22:46 Temperature 98.5 F Pulse Rate 88 Respiratory 16 Rate Blood Pressure 178/94 O2 Sat by Pulse 99 Oximetry Medical Decision Making - Medical Decision Making EPS evaluated the patient and spoke to Dr. Lepe about the case and it was determined the patient could follow-up as an outpatient - Lab Data Lab Results 07/02/17 Range/Units 22:35 Urine Opiates Screen Detected H (NotDetected) Ur Oxycodone Screen Not Detected (NotDetected) Urine Methadone Screen Not Detected (NotDetected) Ur Propoxyphene Screen Not Detected (NotDetected) Ur Barbiturates Screen Not Detected (NotDetected) U Tricyclic Antidepress Not Detected (NotDetected) Ur Phencyclidine Scrn Not Detected (NotDetected) Ur Amphetamines Screen Not Detected (NotDetected) U Methamphetamines Scrn Not Detected (NotDetected) U Benzodiazepines Scrn Not Detected (NotDetected) Urine Cocaine Screen Not Detected (NotDetected) U Marijuana (THC) Screen Detected H (NotDetected) Disposition Clinical Impression: Situational depression Disposition: HOME SELF-CARE Instructions: Depression (ED) Referrals: Vivian Owen MD [Primary Care Provider] - 1-2 days Time of Disposition: 02:34
[2017-07-03 03:00] VITALS: BP 136/72; PULSE 68; RESP 18; TEMP 97.9
== END 2017-07-03 02:59 | disposition home or self-care (01) ==
LOC: EC 22:21
DX: F43.21 Adjustment disorder with depressed mood (principal); Z79.899 Other long term (current) drug therapy
CPT/HCPCS: 80306; 82075; 99285

== ENCOUNTER → 2017-09-19 | Outpatient (CLI) | payer BC ==
[2017-09-19 13:30] VITALS: BP 138/79; PULSE 67; TEMP 98.2; BMI 31.7
--- NOTE | 2017-09-19 15:09 | P.HPBAR ---
Bariatric H&P - History & Physicial H&P Date: 09/19/17 History & Physicial: Visit/CC: follow up visit Patient initial contact: Initial weight: 113.398 kg Initial weight in pounds: 250.00 Height: 5 ft 4.5 in Initial BMI: 42.2 Last weight: Current weight: 85.275 kg Current weight in pounds: 188.00 Current BMI: 31.7 [place] body weight (based on NIH guidelines): 55.565 kg Excess body weight loss: 48.6% The patient is a 41 year-old F who presents for Bariatric Assessment. Patient presents today for sleeve gastrectomy follow-up. She's had some complaints of intermittent dysphagia. She has some complaints of GERD. Past Medical History Past Medical History: GERD/Reflux Additional Past Medical History / Comment(s): migraines, elevated HR, seizure of UNKNWN cause in December 2016 (ONLY HAD ONE EPISODE) History of Any Multi-Drug Resistant Organisms: None Reported Past Surgical History: Orthopedic Surgery Additional Past Surgical History / Comment(s): lab band 2009, invitro fertilization, metatarsus abduction surgery at age 6, sleeve gastrectomy , EGD Past Anesthesia/Blood Transfusion Reactions: Postoperative Nausea & Vomiting ( PONV) Additional Past Anesthesia/Blood Transfusion Reaction / Comm: no hx of blood transfusion Past Psychological History: Depression Smoking Status: Never smoker Past Alcohol Use History: None Reported Past Drug Use History: None Reported - Past Family History Mother Family Medical History: Cancer, Hypertension Additional Family Medical History / Comment(s): Breast CA Brother(s) Family Medical History: No Reported History Father History Unknown: Yes Additional Family Medical History / Comment(s): father of suicide . Surgical - Exam Vital Signs Temp Pulse BP 98.2 F 67 138/79 09/19/17 13:26 09/19/17 13:26 09/19/17 13:26 - General well developed, no distress - Eyes PERRL - ENT normal pinna - Neck no masses - Respiratory normal expansion - Cardiovascular Rhythm: regular Bariatric Assessment & Plan Plan: Status post sleeve yesterday. Patient's complaints of some dysphagia and GERD. Patient esophagram performed today there is no evidence of obstruction or reflux. The patient was scheduled for EGD. Bariatric Checklist Checklist: Plan: Checklist: EGD: 1. Hiatal hernia: 2. H. Pylori: HgbA1c: Vitamin D: Smoking: Never smoker Primary care physician referral: Dr. Owen Psychiatry clearance: Cardiology clearance: Sleep study: Diet journal: VTE risk score: VTE risk level: Rehab needs at discharge:
--- NOTE | 2017-09-19 18:10 | FL ---
SINGLE CONTRAST BARIUM SWALLOW: CLINICAL HISTORY: 41-year-old female with GERD, complains of reflux, mid sternal chest pain, trouble keeping food down. Patient with history of removal of lap band in March 2017 and conversion to sl eeve gastrectomy. Total images: 13. Total fluoroscopy time: 38 seconds. TECHNIQUE: Single contrast exam performed with thin barium. FINDINGS: The patient oral contrast without difficulty or delay. Esophageal peristalsis and motility are withi n normal limits. There is prompt passage of contrast from the esophagus into the stomach with postsu rgical changes of sleeve gastrectomy demonstrated. There is appropriate delay in clearance of the douglas sara right stomach with transit to the small bowel visualized. No obstruction is identified. IMPRESSION: No appreciable obstruction status post sleeve gastrectomy. Further clinical correlation recommended a s to the cause of the patient's symptoms.
== END | disposition home or self-care (01) ==
LOC: BARWHC3 13:07
PROVIDERS: ATTEND Surgery
DX: Z48.815 Encounter for surgical aftercare following surgery on the digestive system (principal); R13.10 Dysphagia, unspecified; K21.9 Gastro-esophageal reflux disease without esophagitis; Z98.84 Bariatric surgery status
CPT/HCPCS: 74220; 99211

== ENCOUNTER 2017-10-03 09:35 | Day surgery (SDC) | payer BC ==
[2017-09-30 10:14] VITALS: BMI 31.4
[~2017-10-03 09:35] MED LIST changes: -LIDOCAINE 1% 20 ML VIAL (10MG/ML) FOR IV START INTRADERMA PRN; -MIDAZOLAM 2 MG/2 ML VIAL IV PRN
[2017-10-03 10:30] VITALS: TEMP 98.2
[2017-10-03] MEDS ORDERED: LIDOCAINE 1% 20 ML VIAL (10MG/ML) FOR IV START INTRADERMA ONE (10:42)
[2017-10-03] MEDS ORDERED: PROPOFOL 10 MG/ML 20 ML VIAL IV ONE (11:05)
--- NOTE | 2017-10-03 11:07 | P.GSHP ---
History of Present Illness H&P Date: 10/03/17 Chief Complaint: GERD This a 41-year-old female with history of GERD. Patient had a previous sleeve gastrectomy. Her recent esophagram shows no evidence of obstruction. Patient resents today for EGD. Past Medical History Past Medical History: GERD/Reflux Additional Past Medical History / Comment(s): Hx of migraines, elevated HR, one seizure/unknown cause 2016; History of Any Multi-Drug Resistant Organisms: None Reported Past Surgical History: Orthopedic Surgery Additional Past Surgical History / Comment(s): lab band 2009, gastic sleeve 04/03 ; EGD; IVF; metatarsus abduction/age 6; Past Anesthesia/Blood Transfusion Reactions: Postoperative Nausea & Vomiting ( PONV) Additional Past Anesthesia/Blood Transfusion Reaction / Comment(s): no hx of blood transfusion Smoking Status: Never smoker - Past Family History Mother Family Medical History: Cancer, Hypertension Additional Family Medical History / Comment(s): Breast CA Brother(s) Family Medical History: No Reported History Father History Unknown: Yes Additional Family Medical History / Comment(s): father of suicide . Medications and Allergies Home Medications Medication Instructions Recorded Confirmed Type Omeprazole 40 mg PO DAILY #60 capsule. 06/17/17 09/30/17 Rx Sucralfate [Carafate] 1 gm PO BID #60 ml 06/17/17 09/30/17 Rx Allergies Allergy/AdvReac Type Severity Reaction Status Date / Time No Known Allergies Allergy Verified 09/30/17 10:08 Surgical - Exam Vital Signs Temp Pulse Resp BP Pulse Ox 98.2 F 74 16 122/78 100 10/03/17 10:28 10/03/17 10:28 10/03/17 10:28 10/03/17 10:28 10/03/17 10:28 - General well developed, well nourished, no distress - Eyes PERRL - ENT normal pinna - Neck no masses - Respiratory normal expansion - Cardiovascular Rhythm: regular - Abdomen Abdomen: soft, non tender Assessment and Plan Assessment: GERD. We'll perform EGD.
--- NOTE | 2017-10-03 11:16 | P.OP ---
Date of Procedure: 10/03/17 Preoperative Diagnosis: Gastritis Postoperative Diagnosis: Antral gastritis Gastric ulcer near the upper portion of gastric sleeve Procedure(s) Performed: EGD Anesthesia: MAC Surgeon: Wellington Salvador Pathology: other (Antrum, gastric ulcer) Condition: stable Disposition: PACU Description of Procedure: The patient's placed on the endoscopy table in the lateral position. She received IV sedation. The gastroscope placed into the oropharynx and into the esophagus. Scope was then placed into the stomach. And then through the pylorus. The first and second portion of duodenum appeared normal. Scope was then brought back the antrum and this appeared mildly inflamed. The scope was then brought back through the gastric sleeve and and then in the proximal portion of the gastric sleeve there was a small ulcer seen this was biopsied forcep. The GE junction was at 40 cm. The distal esophagus appeared minimally inflamed. The proximal esophagus appeared normal. Scope was withdrawn for patient.
[2017-10-03 11:39] VITALS: RESP 18
[2017-10-03 11:51] VITALS: BP 121/80; PULSE 55
== END 2017-10-03 12:12 | disposition home or self-care (01) ==
LOC: ORWHC2ENDO 09:35
PROVIDERS: ATTEND Surgery
DX: K29.50 Unspecified chronic gastritis without bleeding (principal); K21.9 Gastro-esophageal reflux disease without esophagitis; K25.9 Gastric ulcer, unspecified as acute or chronic, without hemorrhage or perforation; F32.9 Major depressive disorder, single episode, unspecified; Z79.899 Other long term (current) drug therapy; Z90.3 Acquired absence of stomach [part of]; Z98.84 Bariatric surgery status; Z82.49 Family history of ischemic heart disease and other diseases of the circulatory system
CPT/HCPCS: 81025; 88305; 43239; J2704

== ENCOUNTER → 2017-10-10 | Outpatient (CLI) | payer BC ==
[2017-10-10 13:56] VITALS: BP 138/88; PULSE 68; RESP 20; TEMP 98; BMI 31.2
--- NOTE | 2017-10-10 14:58 | FL ---
EXAMINATION TYPE: FL barium swallow DATE OF EXAM: 10/10/2017 CLINICAL HISTORY: Status post gastric sleeve 53sec fl time Contrast: Omnipaque 350 50 mL The patient ingested contrast without difficulty or delay. Noted are postsurgical changes of gastric sleeve. There is no evidence for leak or obstruction. Contrast is noted within the duodenum. IMPRESSION: Post-surgical change of gastric sleeve without evidence for obstruction or leak at this point in time.
--- NOTE | 2017-10-10 15:17 | P.HPBAR ---
Bariatric H&P - History & Physicial H&P Date: 10/10/17 History & Physicial: Visit/CC: follow up EGD Patient initial contact: Initial weight: 113.398 kg Initial weight in pounds: 250.00 Height: 5 ft 4.5 in Initial BMI: 42.2 Last weight: Current weight: 83.824 kg Current weight in pounds: 184.80 Current BMI: 31.[address] [place] body weight (based on NIH guidelines): 55.565 kg Excess body weight loss: 51.1% The patient is a 41 year-old F who presents for Bariatric Assessment. Patient presents today for bariatric follow-up. He has had some complaints of GERD. She's last 3 and half pounds since her last visit. Her recent EGD showed evidence of a small ulcer in the upper portion of the sleeve. She is currently taking omeprazole ranitidine and Carafate. Past Medical History Past Medical History: GERD/Reflux Additional Past Medical History / Comment(s): Hx of migraines, elevated HR, one seizure/unknown cause 2016; History of Any Multi-Drug Resistant Organisms: None Reported Past Surgical History: Orthopedic Surgery Additional Past Surgical History / Comment(s): lab band 2009, gastic sleeve 04/03 ; EGD; IVF; metatarsus abduction/age 6; Past Anesthesia/Blood Transfusion Reactions: Postoperative Nausea & Vomiting ( PONV) Additional Past Anesthesia/Blood Transfusion Reaction / Comm: no hx of blood transfusion Smoking Status: Never smoker - Past Family History Mother Family Medical History: Cancer, Hypertension Additional Family Medical History / Comment(s): Breast CA Brother(s) Family Medical History: No Reported History Father History Unknown: Yes Additional Family Medical History / Comment(s): father of suicide . Surgical - Exam Vital Signs Temp Pulse Resp BP 98 F 68 20 138/88 10/10/17 13:51 10/10/17 13:51 10/10/17 13:51 10/10/17 13:51 - General well developed, no distress - Eyes PERRL - ENT normal pinna - Neck no masses - Respiratory normal expansion - Cardiovascular Rhythm: regular - Abdomen Abdomen: soft, non tender Bariatric Assessment & Plan Plan: Peptic ulcer disease. Patient will continue medical therapy. Patient had another esophagram performed today there is known to any leak or obstruction of her gastric sleeve. She'll follow-up in 2 weeks. Bariatric Checklist Checklist: Plan: Checklist: EGD: 1. Hiatal hernia: 2. H. Pylori: HgbA1c: Vitamin D: Smoking: Never smoker Primary care physician referral: Dr. Owen Psychiatry clearance: Cardiology clearance: Sleep study: Diet journal: VTE risk score: VTE risk level: Rehab needs at discharge:
== END ==
LOC: BARWHC3 13:42
PROVIDERS: ATTEND Surgery
DX: Z48.815 Encounter for surgical aftercare following surgery on the digestive system (principal); K21.9 Gastro-esophageal reflux disease without esophagitis; Z98.84 Bariatric surgery status
CPT/HCPCS: 74220; 99211

== ENCOUNTER → 2017-11-28 | Outpatient (CLI) | payer BC ==
[2017-11-28 14:29] VITALS: BP 135/84; PULSE 71; TEMP 98.1; BMI 29.9
--- NOTE | 2017-11-28 16:26 | P.HPBAR ---
Bariatric H&P - History & Physicial H&P Date: 11/28/17 History & Physicial: Visit/CC: six month follow up Patient initial contact: Initial weight: 113.398 kg Initial weight in pounds: 250.00 Height: 5 ft 4.5 in Initial BMI: 42.2 Last weight: Current weight: 80.286 kg Current weight in pounds: 177.00 Current BMI: 29.9 [place] body weight (based on NIH guidelines): 55.565 kg Excess body weight loss: 57.2% The patient is a 42 year-old F who presents for Bariatric Assessment. Patient presents today for sleeve follow-up. She states her GERD has worsened. She is requesting an EGD. She's had excellent weight loss. Past Medical History Past Medical History: GERD/Reflux Additional Past Medical History / Comment(s): Hx of migraines, elevated HR, one seizure/unknown cause 2016; History of Any Multi-Drug Resistant Organisms: None Reported Past Surgical History: Orthopedic Surgery Additional Past Surgical History / Comment(s): lab band 2009, gastic sleeve 04/03 ; EGD; IVF; metatarsus abduction/age 6; Past Anesthesia/Blood Transfusion Reactions: Postoperative Nausea & Vomiting ( PONV) Additional Past Anesthesia/Blood Transfusion Reaction / Comm: no hx of blood transfusion Past Psychological History: Depression Smoking Status: Never smoker Past Alcohol Use History: None Reported Past Drug Use History: None Reported - Past Family History Mother Family Medical History: Cancer, Hypertension Additional Family Medical History / Comment(s): Breast CA Brother(s) Family Medical History: No Reported History Father History Unknown: Yes Additional Family Medical History / Comment(s): father of suicide . Surgical - Exam Vital Signs Temp Pulse BP 98.1 F 71 135/84 11/28/17 14:26 11/28/17 14:26 11/28/17 14:26 - General well developed, no distress - Eyes PERRL - ENT normal pinna - Neck no masses - Respiratory normal expansion - Cardiovascular Rhythm: regular - Abdomen Abdomen: soft, non tender Bariatric Assessment & Plan Plan: Status post sleeve yesterday. Patient is doing quite well. She will undergo EGD. Her esophagram shows no evidence of obstruction Bariatric Checklist Checklist: Plan: Checklist: EGD: 1. Hiatal hernia: 2. H. Pylori: HgbA1c: Vitamin D: Smoking: Never smoker Primary care physician referral: Dr. Owen Psychiatry clearance: Cardiology clearance: Sleep study: Diet journal: VTE risk score: VTE risk level: Rehab needs at discharge:
--- NOTE | 2017-11-28 18:52 | FL ---
SINGLE CONTRAST BARIUM SWALLOW: CLINICAL HISTORY: 42-year-old female dysphasia, epigastric pain, GERD. Patient with gastrectomy in [place] 2018 with worsening nausea/vomiting and reflux. TECHNIQUE: Single contrast exam performed with 3 ounces of thin barium. Total fluoroscopy time: 1.27 minutes. Total images: 22 FINDINGS: The patient swallowed oral contrast without difficulty or delay. Esophageal peristalsis and motility are within normal limits. No fixed narrowing or obvious filling defect is identified. A small slidi ng hiatal hernia is demonstrated. There are postsurgical changes of sleeve gastrectomy satisfactory p assage of contrast from the esophagus into the stomach and then into proximal small bowel. IMPRESSION: 1. Small sliding hiatal hernia. 2. Postsurgical change of sleeve gastrectomy. No obstruction.
== END | disposition home or self-care (01) ==
LOC: BARWHC3 13:55
PROVIDERS: ATTEND Surgery
DX: Z48.815 Encounter for surgical aftercare following surgery on the digestive system (principal); F32.9 Major depressive disorder, single episode, unspecified; K44.9 Diaphragmatic hernia without obstruction or gangrene; Z98.84 Bariatric surgery status; Z98.890 Other specified postprocedural states
CPT/HCPCS: 74220; 99211

== ENCOUNTER 2017-12-02 12:11 | Day surgery (SDC) | payer BC ==
[2017-12-02 12:38] VITALS: RESP 16; TEMP 98.2
[2017-12-02] MEDS ORDERED: LACTATED RINGERS 1,000 ML IV ONE (12:46)
[2017-12-02] MEDS ORDERED: LIDOCAINE 1% 20 ML VIAL (10MG/ML) FOR IV START INTRADERMA ONE (12:46)
[2017-12-02] MEDS ORDERED: PROPOFOL 10 MG/ML 20 ML VIAL IV ONE (14:24)
[2017-12-02] MEDS ORDERED: GLYCOPYRROLATE 0.2 MG/ML 2 ML VIAL ONE (14:24)
[2017-12-02] MEDS ORDERED: LIDOCAINE 1% INJ 10MG/ML (20 ML MDV) ONE (14:24)
--- NOTE | 2017-12-02 14:29 | P.GSHP ---
History of Present Illness H&P Date: 12/02/17 Chief Complaint: GERD this a 42-year-old female who's had complete of GERD. Patient presents today for EGD. Past Medical History Past Medical History: GERD/Reflux Additional Past Medical History / Comment(s): FREQUENT NAUSEA AND VOMITING, Hx of migraines, elevated HR, one seizure/unknown cause 2016; History of Any Multi-Drug Resistant Organisms: None Reported Past Surgical History: Cholecystectomy, Orthopedic Surgery Additional Past Surgical History / Comment(s): lab band 2009, gastic sleeve 04/03 ; EGD; IVF; metatarsus abduction/age 6; Past Anesthesia/Blood Transfusion Reactions: Postoperative Nausea & Vomiting ( PONV) Additional Past Anesthesia/Blood Transfusion Reaction / Comment(s): no hx of blood transfusion Smoking Status: Never smoker - Past Family History Mother Family Medical History: Cancer, Hypertension Additional Family Medical History / Comment(s): Breast CA Brother(s) Family Medical History: No Reported History Father History Unknown: Yes Additional Family Medical History / Comment(s): father of suicide . Medications and Allergies Home Medications Medication Instructions Recorded Confirmed Type Omeprazole 40 mg PO DAILY #60 capsule. 06/17/17 12/02/17 Rx Sucralfate [Carafate] 1 gm PO BID #60 ml 06/17/17 12/02/17 Rx Ranitidine HCl 150 mg PO BID #60 tab 10/03/17 12/02/17 Rx Pregabalin [Lyrica] 25 mg PO DAILY 12/01/17 12/02/17 History Sertraline [Zoloft] 25 mg PO DAILY 12/01/17 12/02/17 History traZODone HCL [TraZODone HCl] 50 mg PO DAILY 12/01/17 12/02/17 History Allergies Allergy/AdvReac Type Severity Reaction Status Date / Time No Known Allergies Allergy Verified 12/02/17 12:33 Surgical - Exam Vital Signs Temp Pulse Resp BP Pulse Ox 98.2 F 57 L 16 124/66 100 12/02/17 12:37 12/02/17 12:37 12/02/17 12:37 12/02/17 12:37 12/02/17 12:37 - General well developed, no distress - Eyes PERRL - ENT normal pinna - Neck no masses - Respiratory normal expansion - Cardiovascular Rhythm: regular - Abdomen Abdomen: soft, non tender Assessment and Plan Assessment: GERD. We'll perform EGD.
--- NOTE | 2017-12-02 14:36 | P.OP ---
Date of Procedure: 12/02/17 Preoperative Diagnosis: GERD Postoperative Diagnosis: mild antral gastritis Mild esophagitis No evidence of significant hiatal hernia Procedure(s) Performed: EGD Anesthesia: MAC Surgeon: Wellington Salvador Pathology: other (antral, esophagus) Condition: stable Disposition: PACU Description of Procedure: the patient's placed on the endoscopy table in the lateral position. She received IV sedation. The gastroscope some placed oropharynx and passed in the esophagus and stomach. Scope was then placed through the pylorus. The first and second portion of duodenum appeared normal. Scope was then brought back the antrum this. Mildly inflamed. A biopsies performed. Scope was then brought back through the gastric sleeve. There is known to any obstruction or stricture. The GE junction was at 38 cm. The distal esophagus appeared minimally inflamed. A biopsies performed. The proximal esophagus appeared normal. Scope was then bwithdrawn from the patient.
[2017-12-02 15:25] VITALS: BP 127/85; PULSE 79
== END 2017-12-02 15:19 | disposition home or self-care (01) ==
LOC: ORWHC2ENDO 12:11
PROVIDERS: ATTEND Surgery
DX: K21.0 Gastro-esophageal reflux disease with esophagitis (principal); M79.7 Fibromyalgia; Z90.49 Acquired absence of other specified parts of digestive tract; Z79.899 Other long term (current) drug therapy
CPT/HCPCS: 81025; 88305; 43239; J2001; J2704

== ENCOUNTER 2018-03-31 18:10 | Emergency (ER) | payer BC ==
[2018-03-31 18:22] VITALS: BP 149/81; PULSE 84; RESP 20; TEMP 97.9
[2018-03-31] MEDS ORDERED: predniSONE 50 MG TAB PO STA (19:56)
[2018-03-31] MEDS ORDERED: diphenhydrAMINE 50 MG CAP PO STA (19:56)
--- NOTE | 2018-03-31 20:11 | ED ---
General Adult HPI - General Chief complaint: Allergic Reaction Stated complaint: poss allergic rxn Time Seen by Provider: 03/31/18 19:49 Source: patient, RN notes reviewed, old records reviewed Mode of arrival: ambulatory Limitations: no limitations - History of Present Illness Initial comments: Patient is a 42-year-old female presents emergency Department today with complaints of starting new medication Lamictal for bipolar disorder. She reports she started this medication 3 days ago. She is concerned because she has had tingling in her arms and feels the burning sensation in her face. Patient's concerned this is inappropriate reaction to medication. She denies any difficulty breathing or tongue swelling. - Related Data Home Medications Medication Instructions Recorded Confirmed Pregabalin [Lyrica] 25 mg PO DAILY 12/01/17 12/02/17 Sertraline [Zoloft] 25 mg PO DAILY 12/01/17 12/02/17 traZODone HCL [TraZODone HCl] 50 mg PO DAILY 12/01/17 12/02/17 Previous Rx's Medication Instructions Recorded Omeprazole 40 mg PO DAILY #60 capsule. 06/17/17 Sucralfate [Carafate] 1 gm PO BID #60 ml 06/17/17 Ranitidine HCl 150 mg PO BID #60 tab 10/03/17 Allergies Allergy/AdvReac Type Severity Reaction Status Date / Time No Known Allergies Allergy Verified 12/02/17 12:33 Review of Systems ROS Statement: Those systems with pertinent positive or pertinent negative responses have been documented in the HPI. ROS Other: All systems not noted in ROS Statement are negative. Past Medical History Past Medical History: GERD/Reflux Additional Past Medical History / Comment(s): FREQUENT NAUSEA AND VOMITING, Hx of migraines, elevated HR, one seizure/unknown cause 2016; History of Any Multi-Drug Resistant Organisms: None Reported Past Surgical History: Cholecystectomy, Orthopedic Surgery Additional Past Surgical History / Comment(s): lab band 2009, gastic sleeve 04/03 ; EGD; IVF; metatarsus abduction/age 6; Past Anesthesia/Blood Transfusion Reactions: Postoperative Nausea & Vomiting ( PONV) Additional Past Anesthesia/Blood Transfusion Reaction / Comment(s): no hx of blood transfusion Past Psychological History: Depression Smoking Status: Never smoker Past Alcohol Use History: None Reported - Past Family History Mother Family Medical History: Cancer, Hypertension Additional Family Medical History / Comment(s): Breast CA Brother(s) Family Medical History: No Reported History Father History Unknown: Yes Additional Family Medical History / Comment(s): father of suicide . General Exam - General Exam Comments Initial Comments: 42-year-old female. Alert and oriented. No significant distress. Limitations: no limitations General appearance: alert, in no apparent distress Head exam: Present: atraumatic, normocephalic, normal inspection Eye exam: Present: normal appearance, PERRL, EOMI. Absent: scleral icterus, conjunctival injection, periorbital swelling ENT exam: Present: normal exam, mucous membranes moist Neck exam: Present: normal inspection. Absent: tenderness, meningismus, lymphadenopathy Respiratory exam: Present: normal lung sounds bilaterally. Absent: respiratory distress, wheezes, rales, rhonchi, stridor Cardiovascular Exam: Present: regular rate, normal rhythm, normal heart sounds. Absent: systolic murmur, diastolic murmur, rubs, gallop, clicks GI/Abdominal exam: Present: soft, normal bowel sounds. Absent: distended, tenderness, guarding, rebound, rigid Extremities exam: Present: normal inspection, full ROM, normal capillary refill. Absent: tenderness, pedal edema, joint swelling, calf tenderness Back exam: Present: normal inspection Neurological exam: Present: alert, oriented X3, CN II-XII intact Psychiatric exam: Present: normal affect, normal mood Skin exam: Present: warm, dry, intact, normal color. Absent: rash Course Vital Signs 03/31/18 18:20 Temperature 97.9 F Pulse Rate 84 Respiratory 20 Rate Blood Pressure 149/81 O2 Sat by Pulse 99 Oximetry Medical Decision Making - Medical Decision Making Patient's 42-year-old female with history of bipolar disorder recently on Lamictal. She complains of tingling and itching over her body. She is concerned because the side effects of the medication could cause a rash. 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 Patient has no blistering in her skin. No oral blistering. Her tongue is normal. N no difficulty in breathing. I did discuss that Patient to discontinue Lamictal as this symptoms are likely related to this. I discussed that she has no signs of severe rash. Discussed monitoring for any signs of blistering. Patient was given 1 dose of Benadryl ER. I discussed that she can follow-up with her PCP. Disposition Clinical Impression: Adverse reaction to drug Disposition: HOME SELF-CARE Condition: Good Instructions (If sedation given, give patient instructions): Adverse Drug Reaction (ED) Additional Instructions: Patient is advised to follow-up with primary care physician. Patient should return to emergency department if any alarming signs or symptoms occur. Discontinue Lamictal. Benadryl every 8 hours as needed. Is patient prescribed a controlled substance at d/c from ED?: No Referrals: Vivian Owen MD [Primary Care Provider] - 1-2 days Time of Disposition: 20:10
== END 2018-03-31 20:48 | disposition home or self-care (01) ==
LOC: EC 18:10
DX: R20.2 Paresthesia of skin (principal); T42.6X5A Adverse effect of other antiepileptic and sedative-hypnotic drugs, initial encounter; F31.9 Bipolar disorder, unspecified; Z79.899 Other long term (current) drug therapy; Z86.69 Personal history of other diseases of the nervous system and sense organs
CPT/HCPCS: 99283; J7512

== ENCOUNTER → 2018-05-01 | Outpatient (CLI) | payer BC ==
[2018-05-01 14:35] VITALS: BP 126/81; PULSE 72; TEMP 98; BMI 30.2
--- NOTE | 2018-05-01 15:07 | P.HPBAR ---
Bariatric H&P - History & Physicial H&P Date: 05/01/18 History & Physicial: Visit/CC: follow up visit Patient initial contact: Initial weight: 113.398 kg Initial weight in pounds: 250.00 Height: 5 ft 4.5 in Initial BMI: 42.2 Last weight: Current weight: 81.193 kg Current weight in pounds: 179.00 Current BMI: 30.2 [place] body weight (based on NIH guidelines): 55.565 kg Excess body weight loss: 55.6% The patient is a 42 year-old F who presents for Bariatric Assessment. Patient presents today for sleeve gastrectomy follow-up. She has issues with GERD. Her weight has been stable chest again to pounds since her last visit in November. Past Medical History Past Medical History: GERD/Reflux Additional Past Medical History / Comment(s): FREQUENT NAUSEA AND VOMITING, Hx of migraines, elevated HR, one seizure/unknown cause 2016; History of Any Multi-Drug Resistant Organisms: None Reported Past Surgical History: Cholecystectomy, Orthopedic Surgery Additional Past Surgical History / Comment(s): lab band 2009, gastic sleeve 04/03; EGD; IVF; metatarsus abduction/age 6; Past Anesthesia/Blood Transfusion Reactions: Postoperative Nausea & Vomiting (PONV) Additional Past Anesthesia/Blood Transfusion Reaction / Comm: no hx of blood transfusion Past Psychological History: Depression Smoking Status: Never smoker Past Alcohol Use History: None Reported Past Drug Use History: None Reported - Past Family History Mother Family Medical History: Cancer, Hypertension Additional Family Medical History / Comment(s): Breast CA Brother(s) Family Medical History: No Reported History Father History Unknown: Yes Additional Family Medical History / Comment(s): father of suicide . Surgical - Exam Vital Signs Temp Pulse BP 98 F 72 126/81 05/01/18 14:18 05/01/18 14:18 05/01/18 14:18 - General well developed, well nourished, no distress - Eyes PERRL - ENT normal pinna - Neck no masses - Respiratory normal expansion - Cardiovascular Rhythm: regular - Abdomen Abdomen: soft Hernia: none - Genitourinary normal external genitalia - Integumentary no rash - Neurologic normal coordination Bariatric Assessment & Plan Plan: GERD. Patient will undergo esophagram. She'll continue omeprazole therapy. She will follow-up in one month. Bariatric Checklist Checklist: Plan: Checklist: EGD: 1. Hiatal hernia: 2. H. Pylori: HgbA1c: Vitamin D: Smoking: Never smoker Primary care physician referral: Dr. Owen Psychiatry clearance: Cardiology clearance: Sleep study: Diet journal: VTE risk score: VTE risk level: Rehab needs at discharge:
== END ==
LOC: BARWHC3 13:01
PROVIDERS: ATTEND Surgery
DX: K21.9 Gastro-esophageal reflux disease without esophagitis (principal); E66.01 Morbid (severe) obesity due to excess calories; Z98.84 Bariatric surgery status; Z79.899 Other long term (current) drug therapy; Z68.30 Body mass index [BMI] 30.0-30.9, adult
CPT/HCPCS: 97803; 99211

== ENCOUNTER 2018-06-16 16:57 | Emergency (ER) | payer BC ==
[2018-06-16 17:03] VITALS: BP 135/84; PULSE 76; RESP 18; TEMP 98.1
--- NOTE | 2018-06-16 17:12 | ED ---
General Adult HPI - General Chief complaint: Upper Respiratory Infection Stated complaint: FACIAL PAIN Time Seen by Provider: 06/16/18 17:05 Source: patient Mode of arrival: ambulatory Limitations: no limitations - History of Present Illness Initial comments: 42-year-old female patient presents to the emergency department today for evaluation of nasal congestion and facial pain. Patient states she has been sick since before . Patient states that today she woke up with pain to the left side of her face radiating into the left ear. Patient states she has been taking TheraFlu, Sudafed, and Tylenol but is not helping. Patient states she briefly her nose. Patient states her nasal drainage is green in color. She denies any epistaxis. States she did have temperature this morning of 101F. She does report mild cough with no sputum production. Patient denies any recent rash, shortness breath, chest pain, abdominal pain, nausea, vomiting, diarrhea, constipation, back pain, numbness, tingling, dizziness, weakness, hematuria, dysuria, urinary urgency, urinary frequency, headache, visual changes, or any other complaints. - Related Data Home Medications Medication Instructions Recorded Confirmed traZODone HCL [TraZODone HCl] 50 mg PO DAILY 12/01/17 05/01/18 Ascorbic Acid [Vitamin C] 500 mg PO DAILY 03/31/18 05/01/18 Marc/D3/Mag11/Zinc/Applications Systems Analyst/[place]/Bor 1 tab PO DAILY 03/31/18 05/01/18 [Caltrate 600+D Plus Tablet] Cholecalciferol (Vitamin D3) 10,000 unit PO DAILY 03/31/18 05/01/18 [Vitamin D3] Cyanocobalamin (Vitamin B-12) 3,000 mcg PO DAILY 03/31/18 05/01/18 [Vitamin B-12] Escitalopram [Lexapro] 5 mg PO DAILY 03/31/18 05/01/18 Gabapentin [Neurontin] 300 mg PO TID 03/31/18 05/01/18 Gabapentin [Neurontin] 300 mg PO TID 03/31/18 05/01/18 Multivitamin/Iron/Folic Acid 1 tab PO DAILY 03/31/18 05/01/18 [Centrum Complete Multivit Tab] lamoTRIgine [LaMICtal] 25 mg PO DAILY 03/31/18 05/01/18 Previous Rx's Medication Instructions Recorded Ranitidine HCl 150 mg PO BID #60 tab 10/03/17 Amoxic-Pot Clav 875-125Mg 1 tab PO Q12HR #20 tablet 06/16/18 [Augmentin 875-125] Fluticasone Nasal [place] [Flonase 1 spray EA NOSTRIL DAILY #1 bottle 06/16/18 Nasal [place]] Allergies Allergy/AdvReac Type Severity Reaction Status Date / Time No Known Allergies Allergy Verified 05/01/18 14:23 Review of Systems ROS Statement: Those systems with pertinent positive or pertinent negative responses have been documented in the HPI. ROS Other: All systems not noted in ROS Statement are negative. Past Medical History Past Medical History: GERD/Reflux Additional Past Medical History / Comment(s): FREQUENT NAUSEA AND VOMITING, Hx of migraines, elevated HR, one seizure/unknown cause 2016; History of Any Multi-Drug Resistant Organisms: None Reported Past Surgical History: Bariatric Surgery, Cholecystectomy, Orthopedic Surgery Additional Past Surgical History / Comment(s): lap band 2009, gastic sleeve 04/03; EGD; IVF; metatarsus abduction/age 6; Past Anesthesia/Blood Transfusion Reactions: Postoperative Nausea & Vomiting (PONV) Additional Past Anesthesia/Blood Transfusion Reaction / Comment(s): no hx of blood transfusion Past Psychological History: Depression Smoking Status: Never smoker Past Alcohol Use History: None Reported Past Drug Use History: None Reported - Past Family History Mother Family Medical History: Cancer, Hypertension Additional Family Medical History / Comment(s): Breast CA Brother(s) Family Medical History: No Reported History Father History Unknown: Yes Additional Family Medical History / Comment(s): father of suicide . General Exam Limitations: no limitations General appearance: alert, in no apparent distress, other (Physical well- developed, well-nourished adult female patient in no acute distress. Vital signs upon presentation are temperature 98.1F, pulse 76, respirations 18, blood pressure 135/84, pulse ox 100% on room air.) Eye exam: Present: normal appearance, PERRL, EOMI. Absent: scleral icterus, conjunctival injection, periorbital swelling ENT exam: Present: normal oropharynx, mucous membranes moist, TM's normal bilaterally, other (Left maxillary tenderness. Normal dental exam.). Absent: normal exam Respiratory exam: Present: normal lung sounds bilaterally. Absent: respiratory distress, wheezes, rales, rhonchi, stridor Cardiovascular Exam: Present: regular rate, normal rhythm, normal heart sounds. Absent: systolic murmur, diastolic murmur, rubs, gallop, clicks Neurological exam: Present: alert, oriented X3, CN II-XII intact Psychiatric exam: Present: normal affect, normal mood Skin exam: Present: warm, dry, intact, normal color. Absent: rash Course Vital Signs 06/16/18 16:59 Temperature 98.1 F Pulse Rate 76 Respiratory 18 Rate Blood Pressure 135/84 O2 Sat by Pulse 100 Oximetry Medical Decision Making - Medical Decision Making 42-year-old female patient presents to the emergency department today for evaluation of nasal congestion, facial pain, and fever. Physical examination did reveal left maxillary tenderness. Did appear to be some evidence for left tympanic effusion. We will start patient on Augmentin for sinusitis. She is instructed to continue taking [id number] nasal decongestants. She'll be given a prescription for Flonase. She is instructed to follow-up with the primary care physician for recheck in 1-2 days. Return parameters were discussed in detail. She verbalizes understanding and agrees this plan. Disposition Clinical Impression: Acute sinusitis Disposition: HOME SELF-CARE Condition: Good Instructions (If sedation given, give patient instructions): Sinusitis (ED) Additional Instructions: Take medications as directed. Complete antibiotic prescriptions in full. Continue home nasal decongestants. Return to the emergency department for any new, worsening, or concerning symptoms. Prescriptions: Amoxic-Pot Clav 875-125Mg [Augmentin 875-125] 1 tab PO Q12HR #20 tablet Fluticasone Nasal [place] [Flonase Nasal [place]] 1 spray EA NOSTRIL DAILY #1 bottle Is patient prescribed a controlled substance at d/c from ED?: No Referrals: Vivian Owen MD [Primary Care Provider] - 1-2 days Time of Disposition: 17:12
== END 2018-06-16 17:49 | disposition home or self-care (01) ==
LOC: EC 16:57
DX: J01.90 Acute sinusitis, unspecified (principal); F32.9 Major depressive disorder, single episode, unspecified; Z79.899 Other long term (current) drug therapy; Z98.84 Bariatric surgery status
CPT/HCPCS: 99283

== ENCOUNTER → 2018-10-23 | Outpatient (CLI) | payer BC ==
[2018-10-23 14:57] VITALS: BP 129/84; PULSE 73; RESP 16; TEMP 98; BMI 30.7
--- NOTE | 2018-10-23 16:33 | P.HPBAR ---
Bariatric H&P - History & Physicial H&P Date: 10/23/18 History & Physicial: Visit/CC: sleeve having problems Patient initial contact: Initial weight: 113.398 kg Initial weight in pounds: 250.00 Height: 5 ft 4.5 in Initial BMI: 42.2 Last weight: Current weight: 82.554 kg Current weight in pounds: 182.00 Current BMI: 30.7 [place] body weight (based on NIH guidelines): 55.565 kg Excess body weight loss: 53.3% The patient is a 43 year-old F who presents for Bariatric Assessment. Patient's complaints of GERD. She is requesting an EGD. Past Medical History Past Medical History: GERD/Reflux Additional Past Medical History / Comment(s): FREQUENT NAUSEA AND VOMITING, Hx of migraines, elevated HR, one seizure/unknown cause 2016; History of Any Multi-Drug Resistant Organisms: None Reported Past Surgical History: Bariatric Surgery, Cholecystectomy, Orthopedic Surgery Additional Past Surgical History / Comment(s): lap band 2009, gastic sleeve 04/03; EGD; IVF; metatarsus abduction/age 6; Past Anesthesia/Blood Transfusion Reactions: Postoperative Nausea & Vomiting (PONV) Additional Past Anesthesia/Blood Transfusion Reaction / Comm: no hx of blood transfusion Past Psychological History: Depression Smoking Status: Never smoker Past Alcohol Use History: None Reported Past Drug Use History: None Reported - Past Family History Mother Family Medical History: Cancer, Hypertension Additional Family Medical History / Comment(s): Breast CA Brother(s) Family Medical History: No Reported History Father History Unknown: Yes Additional Family Medical History / Comment(s): father of suicide . Surgical - Exam Vital Signs Temp Pulse Resp BP 98 F 73 16 129/84 10/23/18 14:55 10/23/18 14:55 10/23/18 14:55 10/23/18 14:55 - General well developed, well nourished, no distress - Abdomen Abdomen: soft, non tender Bariatric Assessment & Plan Plan: GERD. Patient was scheduled for EGD and esophagram. She'll continue Prilosec. Bariatric Checklist Checklist: Plan: Checklist: EGD: 1. Hiatal hernia: 2. H. Pylori: HgbA1c: Vitamin D: Smoking: Never smoker Primary care physician referral: Dr. Owen Psychiatry clearance: Cardiology clearance: Sleep study: Diet journal: VTE risk score: VTE risk level: Rehab needs at discharge:
[2018-10-23 16:37] LABS: Anisocytosis Slight; HCT 34.6 % (34.0-46.0); Hypochromasia Slight; MCH 28.9 pg (25.0-35.0); MCHC 31.7 g/dL (31.0-37.0); MCV 91.1 fL (80.0-100.0); Mean Platelet Volume 5.9; Platelet Count 405 k/uL (150-450); RDW 16.3 % (11.5-15.5); WBC 6.9 k/uL (3.8-10.6)
[2018-10-23 23:49] LABS: African American GFR (CKD) 105.4 (60.0-200.0); Albumin 4.3 g/dL (3.80-4.90); Albumin/Globulin Ratio 2.87 (1.60-3.17); Anion Gap 9.3 mmol/L (4.00-12.00); BUN/Creat Ratio 16.25 Ratio (12.00-20.00); Calcium 9.2 mg/dL (8.7-10.3); Carbon Dioxide 27.7 mmol/L (21.6-31.8); Globulin 1.5 g/dL (1.6-3.3); Potassium 4.7 mmol/L (3.5-5.5); Total Bilirubin 0.2 mg/dL (0.2-1.2); Total Protein 5.8 g/dL (6.2-8.2)
[2018-10-24 00:21] LABS: Vitamin D 25 Hydroxy 41.8 ng/mL (30.0-100.0)
[2018-10-24 00:26] LABS: Iron Saturation 4.11 (12.00-45.00)
== END | disposition home or self-care (01) ==
LOC: BARWHC3 13:57
PROVIDERS: ATTEND Surgery
DX: K21.9 Gastro-esophageal reflux disease without esophagitis (principal); E66.01 Morbid (severe) obesity due to excess calories; K91.2 Postsurgical malabsorption, not elsewhere classified; E55.9 Vitamin D deficiency, unspecified; Z79.899 Other long term (current) drug therapy; Z90.49 Acquired absence of other specified parts of digestive tract; Z98.84 Bariatric surgery status; Z68.30 Body mass index [BMI] 30.0-30.9, adult
CPT/HCPCS: 36415; 80053; 82306; 82607; 82728; 83540; 83550; 84425; 85027; 99211

== ENCOUNTER 2018-11-20 10:03 | Day surgery (SDC) | payer BC ==
[2018-11-16 15:27] VITALS: BMI 30.7
[~2018-11-20 10:03] MED LIST changes: +LIDOCAINE 1% 20 ML VIAL (10MG/ML) FOR IV START INTRADERMA PRN
[2018-11-20 10:23] VITALS: TEMP 98.1
[2018-11-20] MEDS ORDERED: ONDANSETRON 4 MG/2 ML VIAL IVP ONE (10:39)
[2018-11-20] MEDS ORDERED: SCOPOLAMINE 1.5MG/72HR PATCH TRANSDERM ONE (10:40)
[2018-11-20] MEDS ORDERED: DEXAMETHASONE SOD PHOSPHATE 10 MG/ML 1 ML VIAL IV ONE (10:40)
[2018-11-20] MEDS ORDERED: PROPOFOL 10 MG/ML 20 ML VIAL IV ONE (11:32)
[2018-11-20] MEDS ORDERED: LIDOCAINE 1% INJ 10MG/ML (20 ML MDV) ONE (11:32)
--- NOTE | 2018-11-20 11:34 | P.GSHP ---
History of Present Illness H&P Date: 11/20/18 Chief Complaint: GERD This a 41-year-old female with complaints of GERD. Patient presents today for EGD. Past Medical History Past Medical History: GERD/Reflux, Seizure Disorder Additional Past Medical History / Comment(s): Hx of migraines, elevated HR, one seizure/unknown cause 2016; "Severe refux, awakening in noc w/ choking since gastric sleeve surgery." History of Any Multi-Drug Resistant Organisms: None Reported Past Surgical History: Bariatric Surgery, Cholecystectomy, Orthopedic Surgery Additional Past Surgical History / Comment(s): lap band 2009, gastic sleeve 04/03; EGD; IVF; metatarsus abduction/age 6; Past Anesthesia/Blood Transfusion Reactions: Motion Sickness, Postoperative Nausea & Vomiting (PONV) Additional Past Anesthesia/Blood Transfusion Reaction / Comment(s): no hx of blood transfusion Smoking Status: Former smoker - Past Family History Mother Family Medical History: Cancer, Hypertension Additional Family Medical History / Comment(s): Breast CA Brother(s) Family Medical History: No Reported History Father History Unknown: Yes Additional Family Medical History / Comment(s): father of suicide . Medications and Allergies Home Medications Medication Instructions Recorded Confirmed Type Ranitidine HCl 150 mg PO BID #60 tab 10/03/17 11/20/18 Rx Marc/D3/Mag11/Zinc/Interdisciplinary Professor/Clayton/Bor 1 tab PO DAILY 03/31/18 11/20/18 History [Caltrate 600+D Plus Tablet] Cholecalciferol (Vitamin D3) 10,000 unit PO DAILY 03/31/18 11/20/18 History [Vitamin D3] Multivitamin/Iron/Folic Acid 1 tab PO DAILY 03/31/18 11/20/18 History [Centrum Complete Multivit Tab] DULoxetine HCL [Cymbalta] 30 mg PO DAILY 10/23/18 11/20/18 History Ascorbic Acid [Vitamin C] 500 mg PO DAILY 11/16/18 11/20/18 History Cyanocobalamin (Vitamin B-12) 2,000 mcg PO DAILY 11/16/18 11/20/18 History [Vitamin B-12] Allergies Allergy/AdvReac Type Severity Reaction Status Date / Time No Known Allergies Allergy Verified 11/20/18 10:23 Surgical - Exam Vital Signs Temp Pulse Resp BP Pulse Ox 98.1 F 67 18 126/68 99 10/07/19 10:21 11/20/18 10:21 11/20/18 10:21 11/20/18 10:21 11/20/18 10:21 - General well developed, well nourished, no distress - Eyes PERRL - ENT normal pinna - Neck no masses - Respiratory normal expansion - Cardiovascular Rhythm: regular - Abdomen Abdomen: soft, non tender Assessment and Plan Assessment: GERD. We'll perform EGD.
--- NOTE | 2018-11-20 11:46 | P.OP ---
Date of Procedure: 11/20/18 Preoperative Diagnosis: GERD Postoperative Diagnosis: Minimal esophagitis Procedure(s) Performed: EGD Anesthesia: MAC Surgeon: Wellington Salvador Pathology: none sent Condition: stable Disposition: PACU Description of Procedure: A patient's placed on the endoscopy table in the lateral position. She received IV Cipro. The gastroscope placed oropharynx passed in the esophagus into the stomach. Scope was then placed through the pylorus. The first and second portion of the duodenum appeared normal. Scope was then brought back the appeared normal. Scope was then brought back through the gastric sleeve. There is no evidence of any obstruction or scarring of the sleeve. The GE junction was at 40 cm. No significant hiatal hernia could be seen. The distal esophagus appeared normal. There was no significant inflammation. No biopsies performed. The proximal esophagus. Her. Scope was withdrawn for patient.
[2018-11-20 12:01] VITALS: RESP 18
[2018-11-20 12:18] VITALS: BP 121/80; PULSE 58
== END 2018-11-20 12:30 | disposition home or self-care (01) ==
LOC: ORWHC2ENDO 10:03
PROVIDERS: ATTEND Surgery
DX: K21.0 Gastro-esophageal reflux disease with esophagitis (principal); F32.9 Major depressive disorder, single episode, unspecified; Z82.49 Family history of ischemic heart disease and other diseases of the circulatory system; Z87.891 Personal history of nicotine dependence; Z98.84 Bariatric surgery status; Z90.49 Acquired absence of other specified parts of digestive tract; Z80.3 Family history of malignant neoplasm of breast; Z79.899 Other long term (current) drug therapy
CPT/HCPCS: 81025; 43235; J1100; J2405; J2001; J2704

== ENCOUNTER 2018-12-01 21:49 | Emergency (ER) | payer BC ==
[2018-12-01 22:07] LABS: Basophils # (A) 0.1 k/uL (0-0.2); Basophils % (A) 1 %; Eosinophils % (A) 1 %; HCT 41.1 % (34.0-46.0); HGB 12.2 gm/dL (11.4-16.0); Hypochromasia Slight; Lymphocytes # (A) 2.3 k/uL (1.0-4.8); Lymphocytes % (A) 37 %; MCH 28.3 pg (25.0-35.0); MCHC 29.7 g/dL (31.0-37.0); MCV 95.2 fL (80.0-100.0); Mean Platelet Volume 5.8; Monocytes # (A) 0.3 k/uL (0-1.0); Monocytes % (A) 5 %; Neutrophils # (A) 3.3 k/uL (1.3-7.7); Neutrophils % (A) 53 %; Platelet Count 398 k/uL (150-450); RBC 4.31 m/uL (3.80-5.40); RDW 14.1 % (11.5-15.5); WBC 6.2 k/uL (3.8-10.6)
[2018-12-01 22:21] LABS: ALT 25 U/L (9-52); AST 27 U/L (14-36); African American GFR (CKD) >90 (>60 ml/min/1.73 sqM); Albumin 4.6 g/dL (3.5-5.0); Alcohol <10 mg/dL; Alkaline Phosphatase 72 U/L (38-126); Anion Gap 13 mmol/L; Blood Urea Nitrogen 11 mg/dL (7-17); Calcium 9.9 mg/dL (8.4-10.2); Carbon Dioxide 22 mmol/L (22-30); Chloride 106 mmol/L (98-107); Glucose 107 mg/dL (74-99); Non-African American GFR(CKD) >90 (>60 ml/min/1.73 sqM); Potassium 4.2 mmol/L (3.5-5.1); Sodium 141 mmol/L (137-145); Total Bilirubin 0.4 mg/dL (0.2-1.3); Total Protein 7.4 g/dL (6.3-8.2)
[2018-12-01] MEDS ORDERED: SODIUM CHLORIDE 0.9% 1,000 ML IV ONE (22:21)
[2018-12-01] MEDS ORDERED: KETOROLAC 30 MG/ML 1 ML VIAL IVP STA (22:21)
[2018-12-01] MEDS ORDERED: diphenhydrAMINE 50 MG/ML 1 ML VIAL IVP STA (22:21)
[2018-12-01] MEDS ORDERED: METOCLOPRAMIDE 5 MG/ML 2 ML VIAL IVP STA (22:21)
--- NOTE | 2018-12-01 22:25 | ED ---
Seizure HPI - General Chief Complaint: Seizure Stated Complaint: SEIZURE Time Seen by Provider: 12/01/18 21:53 Source: family Mode of arrival: wheelchair Limitations: altered mental status - History of Present Illness Initial Comments: This patient is a 43-year-old woman who presents today to be evaluated for suspected seizure. Patient relates that she had previously been diagnosed with seizures but had been seizure free for 2 years area she had stopped taking her anticonvulsants. Tonight she was in her usual state of health until after 6 PM. She had gone to a hollowing event and then was not feeling well, mainly with some nausea and then a little bit of frontal dull headache. She had gone home and then while she was there she had an episode of shaking and loss of consciousness that seemed similar to previous seizures. The patient states that she feels nearly back to her baseline now. She does have a residual bifrontal headache. She denies any trauma in the shaking event. MD Complaint: possible seizure, shaking Onset/Timin -: hour(s) Description of Episode: loss of consciousness -: second(s) Witnessed: yes - by bystander Trauma: No Seizure History: known seizure disorder Place: home Possible Precipitating Event: none Associated Symptoms: denies other symptoms - Related Data Home Medications Medication Instructions Recorded Confirmed Marc/D3/Mag11/Zinc/Upholstered Goods Crafter/Clayton/Bor 1 tab PO DAILY 03/31/18 12/01/18 [Caltrate 600+D Plus Tablet] Cholecalciferol (Vitamin D3) 10,000 unit PO DAILY 03/31/18 12/01/18 [Vitamin D3] Multivitamin/Iron/Folic Acid 1 tab PO DAILY 03/31/18 12/01/18 [Centrum Complete Multivit Tab] Ascorbic Acid [Vitamin C] 500 mg PO DAILY 11/16/18 12/01/18 Cyanocobalamin (Vitamin B-12) 2,000 mcg PO DAILY 11/16/18 12/01/18 [Vitamin B-12] DULoxetine HCL [Cymbalta] 30 mg PO DAILY 12/01/18 12/01/18 Previous Rx's Medication Instructions Recorded Phenytoin Sodium Extended 100 mg PO TID #45 capsule 12/02/18 [Dilantin] Allergies Allergy/AdvReac Type Severity Reaction Status Date / Time No Known Allergies Allergy Verified 12/01/18 23:15 Review of Systems ROS Statement: Those systems with pertinent positive or pertinent negative responses have been documented in the HPI. ROS Other: All systems not noted in ROS Statement are negative. Constitutional: Denies: fever, chills, weakness Eyes: Denies: eye pain, eye discharge, vision change ENT: Denies: ear pain, hearing loss Respiratory: Denies: cough, dyspnea Cardiovascular: Denies: chest pain, palpitations, edema Gastrointestinal: Reports: nausea. Denies: abdominal pain, vomiting, diarrhea Genitourinary: Denies: dysuria, hematuria, abnormal menses Musculoskeletal: Denies: back pain Skin: Denies: rash Neurological: Reports: headache. Denies: weakness, numbness, paresthesias, confusion Past Medical History Past Medical History: GERD/Reflux, Seizure Disorder Additional Past Medical History / Comment(s): Hx of migraines, elevated HR, one seizure/unknown cause 2016; "Severe refux, awakening in noc w/ choking since gastric sleeve surgery." History of Any Multi-Drug Resistant Organisms: None Reported Past Surgical History: Bariatric Surgery, Cholecystectomy, Orthopedic Surgery Additional Past Surgical History / Comment(s): lap band 2009, gastic sleeve 04/03; EGD; IVF; metatarsus abduction/age 6; Past Anesthesia/Blood Transfusion Reactions: Motion Sickness, Postoperative Nausea & Vomiting (PONV) Additional Past Anesthesia/Blood Transfusion Reaction / Comment(s): no hx of blood transfusion Past Psychological History: Depression Smoking Status: Former smoker Past Alcohol Use History: None Reported Past Drug Use History: Marijuana - Past Family History Mother Family Medical History: Cancer, Hypertension Additional Family Medical History / Comment(s): Breast CA Brother(s) Family Medical History: No Reported History Father History Unknown: Yes Additional Family Medical History / Comment(s): father of suicide . General Exam Limitations: altered mental status General appearance: alert, in no apparent distress Head exam: Present: atraumatic, normocephalic Eye exam: Present: normal appearance, PERRL, EOMI. Absent: scleral icterus, conjunctival injection, nystagmus ENT exam: Present: normal oropharynx Neck exam: Present: normal inspection, full ROM. Absent: tenderness, meningismus Respiratory exam: Present: normal lung sounds bilaterally. Absent: respiratory distress, wheezes, rales, rhonchi, stridor Cardiovascular Exam: Present: regular rate, normal rhythm, normal heart sounds. Absent: systolic murmur, diastolic murmur, rubs, gallop GI/Abdominal exam: Present: soft. Absent: distended, tenderness, guarding, rebound, rigid, mass Extremities exam: Present: normal inspection, normal capillary refill. Absent: pedal edema, calf tenderness Back exam: Present: normal inspection. Absent: CVA tenderness (R), CVA tenderness (L), vertebral tenderness Neurological exam: Present: alert, oriented X3, CN II-XII intact. Absent: motor sensory deficit Skin exam: Present: warm, dry, intact, normal color. Absent: rash Course Vital Signs 12/01/18 12/01/18 12/01/18 21:57 22:51 23:36 Temperature 99.3 F Pulse Rate 62 64 53 L Respiratory 16 18 17 Rate Blood Pressure 148/87 123/76 124/77 O2 Sat by Pulse 100 100 100 Oximetry 12/02/18 12/02/18 01:09 02:31 Temperature 97.7 F Pulse Rate 77 50 L Respiratory 17 18 Rate Blood Pressure 129/75 129/88 O2 Sat by Pulse 100 96 Oximetry Medical Decision Making - Medical Decision Making Patient is a 43-year-old woman with history of some previous seizures. She reports that a couple of years ago she had stopped taking Keppra because it seemed to be altering her mood and making her prone to fits of anger. Tonight s he had seizure activity. She has returned to her baseline. I did have discussion with patient and about having her admitted in the hospital, which would require transfer as there is no neurology covers this weekend. The patient states that she is feeling well and would like to go home. She declines admission, and her is for sure decision. Patient does want to restart anticonvulsant but not Keppra. In light of this I did give her loading dose of Dilantin and prescription to continue this and she will follow with neurology. We discussed appropriate further care and follow-up as well as return parameters. - Lab Data Result diagrams: 12/01/18 21:58 12/01/18 21:58 Lab Results 12/01/18 12/01/18 12/01/18 Range/Units 21:58 21:58 21:58 WBC 6.2 (3.8-10.6) k/uL RBC 4.31 (3.80-5.40) m/uL Hgb 12.2 (11.4-16.0) gm/dL Hct 41.1 (34.0-46.0) % MCV 95.2 (80.0-100.0) fL MCH 28.3 (25.0-35.0) pg MCHC 29.7 L (31.0-37.0) g/dL RDW 14.1 (11.5-15.5) % Plt Count 398 (150-450) k/uL Neutrophils % 53 % Lymphocytes % 37 % Monocytes % 5 % Eosinophils % 1 % Basophils % 1 % Neutrophils # 3.3 (1.3-7.7) k/uL Lymphocytes # 2.3 (1.0-4.8) k/uL Monocytes # 0.3 (0-1.0) k/uL Eosinophils # 0.0 (0-0.7) k/uL Basophils # 0.1 (0-0.2) k/uL Hypochromasia Slight Sodium 141 (137-145) mmol/L Potassium 4.2 (3.5-5.1) mmol/L Chloride 106 (98-107) mmol/L Carbon Dioxide 22 (22-30) mmol/L Anion Gap 13 mmol/L BUN 11 (7-17) mg/dL Creatinine 0.76 (0.52-1.04) mg/dL Est GFR (CKD-EPI)AfAm >90 (>60 ml/min/1.73 sqM) Est GFR (CKD-EPI)NonAf >90 (>60 ml/min/1.73 sqM) Glucose 107 H (74-99) mg/dL Lactic Ac Sepsis Rflx Plasma Lactic Acid Prosper 3.9 H* (0.7-2.0) mmol/L Calcium 9.9 (8.4-10.2) mg/dL Total Bilirubin 0.4 (0.2-1.3) mg/dL AST 27 (14-36) U/L ALT 25 (9-52) U/L Alkaline Phosphatase 72 (38-126) U/L Total Protein 7.4 (6.3-8.2) g/dL Albumin 4.6 (3.5-5.0) g/dL Serum Alcohol <10 mg/dL 12/01/18 12/02/18 Range/Units 22:30 02:03 WBC (3.8-10.6) k/uL RBC (3.80-5.40) m/uL Hgb (11.4-16.0) gm/dL Hct (34.0-46.0) % MCV (80.0-100.0) fL MCH (25.0-35.0) pg MCHC (31.0-37.0) g/dL RDW (11.5-15.5) % Plt Count (150-450) k/uL Neutrophils % % Lymphocytes % % Monocytes % % Eosinophils % % Basophils % % Neutrophils # (1.3-7.7) k/uL Lymphocytes # (1.0-4.8) k/uL Monocytes # (0-1.0) k/uL Eosinophils # (0-0.7) k/uL Basophils # (0-0.2) k/uL Hypochromasia Sodium (137-145) mmol/L Potassium (3.5-5.1) mmol/L Chloride (98-107) mmol/L Carbon Dioxide (22-30) mmol/L Anion Gap mmol/L BUN (7-17) mg/dL Creatinine (0.52-1.04) mg/dL Est GFR (CKD-EPI)AfAm (>60 ml/min/1.73 sqM) Est GFR (CKD-EPI)NonAf (>60 ml/min/1.73 sqM) Glucose (74-99) mg/dL Lactic Ac Sepsis Rflx Y Plasma Lactic Acid Prosper 0.9 (0.7-2.0) mmol/L Calcium (8.4-10.2) mg/dL Total Bilirubin (0.2-1.3) mg/dL AST (14-36) U/L ALT (9-52) U/L Alkaline Phosphatase (38-126) U/L Total Protein (6.3-8.2) g/dL Albumin (3.5-5.0) g/dL Serum Alcohol mg/dL - EKG Data -: EKG Interpreted by Me EKG shows normal: sinus rhythm, axis (Normal), intervals (Normal), QRS complexes (Normal), ST-T waves (Normal) Rate: normal (Rate 60 bpm) Disposition Clinical Impression: Recurrent seizures Disposition: HOME SELF-CARE Condition: Good Instructions (If sedation given, give patient instructions): Recurrent Seizures in Adults (ED) Prescriptions: Phenytoin Sodium Extended [Dilantin] 100 mg PO TID #45 capsule Is patient prescribed a controlled substance at d/c from ED?: No Referrals: Morgan Rea MD [Primary Care Provider] - 1-2 days Keeley Cordon MD [STAFF PHYSICIAN] - 1-2 days
[2018-12-01] MEDS ORDERED: LORazepam 2 MG/ML INJ IV STA (22:28)
--- NOTE | 2018-12-01 22:46 | CT ---
EXAMINATION TYPE: CT brain wo con DATE OF EXAM: 12/01/2018 COMPARISON: 12/28/2016 HISTORY: Seizure activity/headache. Vomiting blood. Pt states she has history of seizure CT DLP: 1142.4 mGycm. Automated Exposure Control for Dose Reduction was Utilized. TECHNIQUE: CT scan of the head is performed without contrast. FINDINGS: Ventricles have normal size. There is no mass effect nor midline shift. There is no sign of intracranial hemorrhage. There is asymmetric enlargement of the right parotid gland. There are large mucus retention cysts in the maxillary sinuses. IMPRESSION: No acute intracranial abnormality. Brain unchanged. Enlarged right parotid gland unchanged compared t o CT scan 12/02/2015.
[2018-12-02] MEDS ORDERED: PHENYTOIN SODIUM EXTENDED 100 MG CAP PO STA ×2 (00:23→01:39)
[2018-12-02] MEDS ORDERED: SODIUM CHLORIDE 0.9% 1,000 ML IV ONE (01:07)
[2018-12-02 02:33] VITALS: BP 129/88; PULSE 50; RESP 18; TEMP 97.7
== END 2018-12-02 03:22 | disposition home or self-care (01) ==
LOC: EC 21:49
DX: G40.909 Epilepsy, unspecified, not intractable, without status epilepticus (principal); R51 Headache; F32.9 Major depressive disorder, single episode, unspecified; Z87.891 Personal history of nicotine dependence; Z79.899 Other long term (current) drug therapy; Z53.20 Procedure and treatment not carried out because of patient's decision for unspecified reasons
CPT/HCPCS: 36415 ×2; 93005; 80053; 83605 ×2; 85025; 80320; 70450; 99284; 96374; 96375 ×3; 96361 ×3; J2060; J1200; J2765; J1885

== ENCOUNTER 2019-04-11 16:31 | Emergency (ER) | payer BC ==
[2019-04-11] MEDS ORDERED: ACETAMINOPHEN TAB 500 MG TAB PO STA (16:44)
[2019-04-11] MEDS ORDERED: SODIUM CHLORIDE 0.9% 500 ML 500 ML IV STA (16:45)
--- NOTE | 2019-04-11 17:19 | XR ---
EXAMINATION TYPE: XR chest 2V DATE OF EXAM: 04/11/2019 COMPARISON: 09/11/2016 HISTORY: Cough and fever TECHNIQUE: FINDINGS: Heart and mediastinum are normal. Lungs are clear. Diaphragm is normal. Bony thorax appears normal. IMPRESSION: Normal chest. No change.
--- NOTE | 2019-04-11 17:37 | ED ---
Nausea/Vomiting/Diarrhea HPI - General Chief complaint: Nausea/Vomiting/Diarrhea Stated complaint: flu like symptoms Time Seen by Provider: 04/11/19 16:36 Source: patient, EMS Mode of arrival: EMS Limitations: no limitations - History of Present Illness Initial comments: Patient is a 43-year-old female presenting to emergency Department via EMS with complaints of nausea, vomiting, headache, cough, fever that started yesterday. EMS states she was seen at [facility] yesterday for same complaints. She was given 500 L bolus of fluids as well as Zofran EMS prior to arrival. Patient states she has not been taking any medicine for fever. She denies any abdominal pain, chest pain, shortness of breath. She denies diarrhea. She admits to history of bariatric surgery as well as cholecystectomy. No other abdominal surgeries. There are no other complaints at this time. Upon arrival to ER patient was febrile at 100.7, rest of vitals normal. - Related Data Home Medications Medication Instructions Recorded Confirmed Marc/D3/Mag11/Zinc/Party Demonstrator/Clayton/Bor 1 tab PO DAILY 03/31/18 12/01/18 [Caltrate 600+D Plus Tablet] Cholecalciferol (Vitamin D3) 10,000 unit PO DAILY 03/31/18 12/01/18 [Vitamin D3] Multivitamin/Iron/Folic Acid 1 tab PO DAILY 03/31/18 12/01/18 [Centrum Complete Multivit Tab] Ascorbic Acid [Vitamin C] 500 mg PO DAILY 11/16/18 12/01/18 Cyanocobalamin (Vitamin B-12) 2,000 mcg PO DAILY 11/16/18 12/01/18 [Vitamin B-12] DULoxetine HCL [Cymbalta] 30 mg PO DAILY 12/01/18 12/01/18 Previous Rx's Medication Instructions Recorded Phenytoin Sodium Extended 100 mg PO TID #45 capsule 12/02/18 [Dilantin] Azithromycin [Zithromax Z-pack] 0 mg PO DIRECTED #1 pack 04/11/19 Allergies Allergy/AdvReac Type Severity Reaction Status Date / Time aspirin Allergy Unknown Verified 04/11/19 16:38 ibuprofen [From Motrin] Allergy Unknown Verified 04/11/19 16:38 Review of Systems ROS Statement: Those systems with pertinent positive or pertinent negative responses have been documented in the HPI. ROS Other: All systems not noted in ROS Statement are negative. Past Medical History Past Medical History: GERD/Reflux, Seizure Disorder Additional Past Medical History / Comment(s): Hx of migraines, elevated HR, one seizure/unknown cause 2016; "Severe refux, awakening in noc w/ choking since gastric sleeve surgery." History of Any Multi-Drug Resistant Organisms: None Reported Past Surgical History: Bariatric Surgery, Cholecystectomy, Orthopedic Surgery Additional Past Surgical History / Comment(s): lap band 2009, gastic sleeve 04/03; EGD; IVF; metatarsus abduction/age 6; Past Anesthesia/Blood Transfusion Reactions: Motion Sickness, Postoperative Nausea & Vomiting (PONV) Additional Past Anesthesia/Blood Transfusion Reaction / Comment(s): no hx of blood transfusion Past Psychological History: Depression Smoking Status: Former smoker Past Alcohol Use History: None Reported Past Drug Use History: Marijuana - Past Family History Mother Family Medical History: Cancer, Hypertension Additional Family Medical History / Comment(s): Breast CA Brother(s) Family Medical History: No Reported History Father History Unknown: Yes Additional Family Medical History / Comment(s): father of suicide . General Exam - General Exam Comments Initial Comments: GENERAL: Well-appearing, well-nourished and in no acute distress. HEAD: Atraumatic, normocephalic. EYES: Pupils equal round and reactive to light, extraocular movements intact, sclera anicteric, conjunctiva are normal. ENT: TMs normal, nares patent, oropharynx clear without exudates. Moist mucous membranes. NECK: Normal range of motion, supple without lymphadenopathy or JVD. LUNGS: Breath sounds clear to auscultation bilaterally and equal. No wheezes rales or rhonchi. HEART: Regular rate and rhythm without murmurs, rubs or gallops. ABDOMEN: Soft, nontender, normoactive bowel sounds. No guarding, no rebound. No masses appreciated. : Deferred EXTREMITIES: Normal range of motion, no pitting or edema. No clubbing or cyanosis. NEUROLOGICAL: Normal speech, normal gait. PSYCH: Normal mood, normal affect. SKIN: Warm, Dry, normal turgor, no rashes or lesions noted. Limitations: no limitations Course Vital Signs 04/11/19 04/11/19 16:35 17:52 Temperature 100.4 F H 100.9 F H Pulse Rate 92 91 Respiratory 18 16 Rate Blood Pressure 133/83 121/63 O2 Sat by Pulse 96 97 Oximetry Medical Decision Making - Medical Decision Making Patient is a 43-year-old female presenting via EMS for flulike symptoms since yesterday. Patient was seen at [facility] yesterday for same complaints. Patient has not taken any medicine for her symptoms. Patient was s lightly febrile upon arrival, rest of vitals normal. Patient was given fluids as well as Zofran. Chest x-ray shows no acute abnormalities. Influenza test is negative. I discussed this with the patient. Patient refused the Tylenol today. Patient will be given dose of Toradol through her IV. Patient will also be given azithromycin for upper respiratory infection. She is in agreement with this plan of care. She stable for discharge at this time. Patient will continue to increase fluid intake. Return parameters were discussed with the patient she verbalized understanding. - Lab Data Lab Results 04/11/19 Range/Units 16:39 Influenza Type A RNA Not Detected (Not Detectd) Influenza Type B (PCR) Not Detected (Not Detectd) Disposition Clinical Impression: URI (upper respiratory infection) Disposition: HOME SELF-CARE Condition: Stable Instructions (If sedation given, give patient instructions): Upper Respiratory Infection (ED) Additional Instructions: Please return to the Emergency Department if symptoms worsen or any other concerns. Medications prescribed. It continues take Tylenol as needed for fever and body aches. Follow-up with primary care physician. Prescriptions: Azithromycin [Zithromax Z-pack] 0 mg PO DIRECTED #1 pack Is patient prescribed a controlled substance at d/c from ED?: No Referrals: Morgan Rea MD [Primary Care Provider] - 1-2 days
[2019-04-11] MEDS ORDERED: KETOROLAC 30 MG/ML 1 ML VIAL IVP STA (17:47)
[2019-04-11 17:53] VITALS: BP 121/63; PULSE 91; RESP 16; TEMP 100.9
== END 2019-04-11 17:58 | disposition home or self-care (01) ==
LOC: EC 16:31
DX: J06.9 Acute upper respiratory infection, unspecified (principal); F32.9 Major depressive disorder, single episode, unspecified; Z87.891 Personal history of nicotine dependence; Z88.6 Allergy status to analgesic agent; Z79.899 Other long term (current) drug therapy; R11.2 Nausea with vomiting, unspecified; Z90.49 Acquired absence of other specified parts of digestive tract; Z98.84 Bariatric surgery status
CPT/HCPCS: 87502; 71046; 99284; 96374; J1885

== ENCOUNTER 2020-08-28 17:45 | Inpatient (IN) | payer BC ==
[2020-08-28] MEDS ORDERED: ACETAMINOPHEN TAB 500 MG TAB PO STA (18:18)
[2020-08-28] MEDS ORDERED: VANCOMYCIN IV PER PHARMACY 1 EACH MISC MISCELLANE PRN (18:23)
[2020-08-28] MEDS ORDERED: PIPERACILLIN-TAZOBACTAM 3.375 GM in SODIUM CHLORIDE 0.9% 100 ML IVPB STA (18:23)
[2020-08-28] MEDS ORDERED: HYDROmorphone 1 MG/ML 1 ML SYRINGE IVP STA (18:28)
[2020-08-28] MEDS ORDERED: VANCOMYCIN 1,500 MG in SODIUM CHLORIDE 0.9% 250 ML IVPB STA (18:28)
[2020-08-28] MEDS ORDERED: ONDANSETRON 4 MG/2 ML VIAL IVP STA (18:28)
[2020-08-28] MEDS: SODIUM CHLORIDE 0.9% 500 ML 500 ML IV SCH ×2 (18:30→18:34)
--- NOTE | 2020-08-28 18:34 | ED ---
General Adult HPI - General Chief complaint: Fever Stated complaint: Fever, leg pain Time Seen by Provider: 08/28/20 18:00 Source: patient, RN notes reviewed, old records reviewed Mode of arrival: wheelchair Limitations: no limitations - History of Present Illness Initial comments: This is a 44-year-old female presents emergency Department complaining of a three-day history of eye pain on the right which started off as a small red area which she thought was a bug bite but since in the areas round, and hard in the center and extremely tender and hot and she has now had a fever. Patient states she has not been in the [place] she does not know what anything that bit her but it just remind her of her some sort of bug bite. Patient denies any abdominal pain patient denies any nausea vomiting. Patient denies any dysuria hematuria urinary frequency. Patient denies any cough recently. Patient states she did not get COVID and she has not had the COVID vaccine. - Related Data Home Medications Medication Instructions Recorded Confirmed HYDROcodone/APAP 5-325MG [[place] 1 tab PO BID PRN 08/28/20 08/28/20 5-325] Allergies Allergy/AdvReac Type Severity Reaction Status Date / Time aspirin Allergy Unknown Verified 08/28/20 18:59 ibuprofen [From Motrin] Allergy Unknown Verified 08/28/20 18:59 Review of Systems ROS Statement: Those systems with pertinent positive or pertinent negative responses have been documented in the HPI. ROS Other: All systems not noted in ROS Statement are negative. Past Medical History Past Medical History: GERD/Reflux, Seizure Disorder Additional Past Medical History / Comment(s): Hx of migraines, elevated HR, one seizure/unknown cause 2016; "Severe refux, awakening in noc w/ choking since gastric sleeve surgery." History of Any Multi-Drug Resistant Organisms: None Reported Past Surgical History: Bariatric Surgery, Cholecystectomy, Orthopedic Surgery Additional Past Surgical History / Comment(s): lap band 2009, gastic sleeve 04/03; EGD; IVF; metatarsus abduction/age 6; Past Anesthesia/Blood Transfusion Reactions: Motion Sickness, Postoperative Nausea & Vomiting (PONV) Additional Past Anesthesia/Blood Transfusion Reaction / Comment(s): no hx of blood transfusion Past Psychological History: Depression Smoking Status: Never smoker Past Alcohol Use History: None Reported Past Drug Use History: Marijuana - Past Family History Mother Family Medical History: Cancer, Hypertension Additional Family Medical History / Comment(s): Breast CA Brother(s) Family Medical History: No Reported History Father History Unknown: Yes Additional Family Medical History / Comment(s): father of suicide . General Exam - General Exam Comments Initial Comments: GENERAL: Patient is well-developed and well-nourished. Patient is nontoxic and well-hyd rated and is in mild distress. ENT: Neck is soft and supple. No significant lymphadenopathy is noted. Oropharynx is clear. Moist mucous membranes. Neck has full range of motion without eliciting any pain. EYES: The sclera were anicteric and conjunctiva were pink and moist. Extraocular movements were intact and pupils were equal round and reactive to light. Eyelids were unremarkable. PULMONARY: Unlabored respirations. Good breath sounds bilaterally. No audible rales rhonchi or wheezing was noted. CARDIOVASCULAR: There is a regular rate and rhythm without any murmurs gallops or rubs. ABDOMEN: Soft and nontender with normal bowel sounds. No palpable organomegaly was noted. There is no palpable pulsatile mass. SKIN: Patient has a large red warm area on the anterior right thigh measuring about 10 x 15 cm in the center is a very indurated tender area measuring about 4 x 4 ce ntimeters NEUROLOGIC: Patient is alert and oriented x3. Cranial nerves II through XII are grossly intact. Motor and sensory are also intact. Normal speech, volume and content. Symmetrical smile. MUSCULOSKELETAL: Normal extremities with adequate strength and full range of motion. LYMPHATICS: No significant lymphadenopathy is noted PSYCHIATRIC: Normal psychiatric evaluation. Limitations: no limitations Course Vital Signs 08/28/20 08/28/20 17:56 19:26 Temperature 102.5 F H 99.8 F H Pulse Rate 121 H 90 Respiratory 28 H 18 Rate Blood Pressure 147/77 114/63 O2 Sat by Pulse 99 96 Oximetry Medical Decision Making - Medical Decision Making EKG shows normal sinus rhythm at 93 bpm NC interval is 132 QRS is 76 QT interval 334 QTC is 4:15. Patient's EKG shows no ST segment elevation or depression. CT shows maybe early abscess formation but definite cellulitis. Patient recently started on Zosyn. Vancomycin was also started. Patient's also given Tylenol for the fever. I spoke with Dr. Mendez she agreed to admit the patient admitted the patient wrote admitting orders I continued antibiotics on the floor. - Lab Data Result diagrams: 08/28/20 18:37 08/28/20 18:37 Lab Results 08/28/20 08/28/20 08/28/20 Range/Units 18:37 18:37 18:37 WBC 15.5 H (3.8-10.6) k/uL RBC 3.99 (3.80-5.40) m/uL Hgb 11.1 L (11.4-16.0) gm/dL Hct 33.5 L (34.0-46.0) % MCV 84.1 (80.0-100.0) fL MCH 27.9 (25.0-35.0) pg MCHC 33.2 (31.0-37.0) g/dL RDW 14.7 (11.5-15.5) % Plt Count 514 H (150-450) k/uL MPV 6.5 Neutrophils % 84 % Lymphocytes % 10 % Monocytes % 5 % Eosinophils % 0 % Basophils % 0 % Neutrophils # 13.1 H (1.3-7.7) k/uL Lymphocytes # 1.6 (1.0-4.8) k/uL Monocytes # 0.7 (0-1.0) k/uL Eosinophils # 0.0 (0-0.7) k/uL Basophils # 0.0 (0-0.2) k/uL PT 10.5 (9.0-12.0) sec INR 1.0 (<1.2) APTT 23.3 (22.0-30.0) sec Sodium 138 (137-145) mmol/L Potassium 3.7 (3.5-5.1) mmol/L Chloride 105 (98-107) mmol/L Carbon Dioxide 19 L (22-30) mmol/L Anion Gap 14 mmol/L BUN 9 (7-17) mg/dL Creatinine 0.60 (0.52-1.04) mg/dL Est GFR (CKD-EPI)AfAm >90 (>60 ml/min/1.73 sqM) Est GFR (CKD-EPI)NonAf >90 (>60 ml/min/1.73 sqM) Glucose 94 (74-99) mg/dL Plasma Lactic Acid [place] (0.7-2.0) mmol/L Calcium 9.9 (8.4-10.2) mg/dL Total Bilirubin 0.5 (0.2-1.3) mg/dL AST 16 (14-36) U/L ALT 10 (4-34) U/L Alkaline Phosphatase 86 (38-126) U/L Total Protein 6.9 (6.3-8.2) g/dL Albumin 4.2 (3.5-5.0) g/dL Coronavirus (PCR) (Not Detectd) 08/28/20 08/28/20 Range/Units 18:37 18:50 WBC (3.8-10.6) k/uL RBC (3.80-5.40) m/uL Hgb (11.4-16.0) gm/dL Hct (34.0-46.0) % MCV (80.0-100.0) fL MCH (25.0-35.0) pg MCHC (31.0-37.0) g/dL RDW (11.5-15.5) % Plt Count (150-450) k/uL MPV Neutrophils % % Lymphocytes % % Monocytes % % Eosinophils % % Basophils % % Neutrophils # (1.3-7.7) k/uL Lymphocytes # (1.0-4.8) k/uL Monocytes # (0-1.0) k/uL Eosinophils # (0-0.7) k/uL Basophils # (0-0.2) k/uL PT (9.0-12.0) sec INR (<1.2) APTT (22.0-30.0) sec Sodium (137-145) mmol/L Potassium (3.5-5.1) mmol/L Chloride (98-107) mmol/L Carbon Dioxide (22-30) mmol/L Anion Gap mmol/L BUN (7-17) mg/dL Creatinine (0.52-1.04) mg/dL Est GFR (CKD-EPI)AfAm (>60 ml/min/1.73 sqM) Est GFR (CKD-EPI)NonAf (>60 ml/min/1.73 sqM) Glucose (74-99) mg/dL Plasma Lactic Acid [place] 1.8 (0.7-2.0) mmol/L Calcium (8.4-10.2) mg/dL Total Bilirubin (0.2-1.3) mg/dL AST (14-36) U/L ALT (4-34) U/L Alkaline Phosphatase (38-126) U/L Total Protein (6.3-8.2) g/dL Albumin (3.5-5.0) g/dL Coronavirus (PCR) Not Detected (Not Detectd) Disposition Clinical Impression: Cellulitis of right thigh, Abscess of right thigh Disposition: ADMITTED IP TO THIS HOSP Referrals: Morgan Rea MD [Primary Care Provider] - 1-2 days Time of Disposition: 20:09
[2020-08-28] MEDS ORDERED: SODIUM CHLORIDE 0.9% 1,000 ML IV ONE ×2 (18:35→20:09)
[2020-08-28] MEDS ORDERED: SODIUM CHLORIDE 0.9% 500 ML 500 ML IV ONE (18:35)
[2020-08-28 18:51] LABS: Basophils % (A) 0 %; Eosinophils % (A) 0 %; HCT 33.5 % (34.0-46.0); HGB 11.1 gm/dL (11.4-16.0); Lymphocytes # (A) 1.6 k/uL (1.0-4.8); Lymphocytes % (A) 10 %; MCH 27.9 pg (25.0-35.0); MCHC 33.2 g/dL (31.0-37.0); MCV 84.1 fL (80.0-100.0); Mean Platelet Volume 6.5; Monocytes # (A) 0.7 k/uL (0-1.0); Monocytes % (A) 5 %; Neutrophils # (A) 13.1 k/uL (1.3-7.7); Neutrophils % (A) 84 %; Platelet Count 514 k/uL (150-450); RBC 3.99 m/uL (3.80-5.40); RDW 14.7 % (11.5-15.5); WBC 15.5 k/uL (3.8-10.6)
[2020-08-28 18:59] LABS: ALT 10 U/L (4-34); AST 16 U/L (14-36); African American GFR (CKD) >90 (>60 ml/min/1.73 sqM); Albumin 4.2 g/dL (3.5-5.0); Alkaline Phosphatase 86 U/L (38-126); Anion Gap 14 mmol/L; Blood Urea Nitrogen 9 mg/dL (7-17); Calcium 9.9 mg/dL (8.4-10.2); Carbon Dioxide 19 mmol/L (22-30); Chloride 105 mmol/L (98-107); Glucose 94 mg/dL (74-99); Non-African American GFR(CKD) >90 (>60 ml/min/1.73 sqM); Potassium 3.7 mmol/L (3.5-5.1); Sodium 138 mmol/L (137-145); Total Bilirubin 0.5 mg/dL (0.2-1.3); Total Protein 6.9 g/dL (6.3-8.2)
[2020-08-28 19:09] LABS: Partial Thromboplastin Time 23.3 sec (22.0-30.0); Prothrombin Time 10.5 sec (9.0-12.0)
--- NOTE | 2020-08-28 19:41 | CT ---
EXAMINATION TYPE: CT lower extremity RT w con DATE OF EXAM: 08/28/2020 COMPARISON: None HISTORY: Right upper thigh pain and redness. CT DLP: 2731.1 mGycm Automated exposure control for dose reduction was used. CONTRAST: Performed with IV Contrast, patient injected with 100ml mL of Isovue 300. Images obtained from the top of the iliac crest to the proximal tibia with IV contrast. The iliac bone appears intact. The hip joint appears intact. There is no hip dysplasia. Uterus is ant everted. I see no pelvic mass. Bladder distends smoothly. There is normal enhancement of the femoral artery and vein. There is subcutaneous fat stranding over the anterior mid thigh. There is irregular 1.6 cm collection in the subcutaneous mid thigh. I see no bony destructive process. The acetabulum is intact. The femur is intact. Knee joint is intac t. There is no evidence of hip dysplasia. I see no focal bone destruction. There is no evidence of kn ee joint effusion. The muscle bundles of the right thigh appear intact. IMPRESSION: Subcutaneous edema over large area of the anterior mid thigh consistent with cellulitis. There is irr egular developing fluid collection in the mid thigh that could be abscess formation. No fracture. No evidence of osteomyelitis.
[2020-08-28] MEDS ORDERED: HYDROmorphone 0.5 MG/0.5 ML SYRINGE IVP PRN (20:10)
[2020-08-28 22:31] LABS: Appearance,Urine Clear (Clear); Bilirubin,Urine Negative (Negative); Blood,Urine Large (Negative); Color,Urine Yellow; Glucose,Urine (UA) Negative (Negative); Ketones,Urine 2+ (Negative); Leukocyte Esterase,Urine Negative (Negative); Nitrite,Urine Negative (Negative); Protein,Urine Trace (Negative); RBC,Urine >182 /hpf (0-5); Squamous Epithelial Cell,Urine <1 /hpf (0-4); Urobilinogen,Urine <2.0 mg/dL (<2.0); WBC,Urine 6 /hpf (0-5)
[2020-08-28 22:33] LABS: Specific Gravity,Urine >1.050 (1.001-1.035)
[2020-08-28] MEDS ORDERED: HYDROmorphone 1 MG/ML 1 ML SYRINGE IVP PRN (22:38)
[2020-08-28] MEDS ORDERED: HYDROmorphone 0.5 MG/0.5 ML SYRINGE IVP STA (22:45)
[2020-08-28] MEDS: KETOROLAC 15 MG/ML 1 ML VIAL IVP SCH (23:31)
[2020-08-29] MEDS: HYDROmorphone 1 MG/ML 1 ML SYRINGE IVP PRN ×3 (01:08→23:41)
[2020-08-29] MEDS: PIPERACILLIN-TAZOBACTAM 3.375 GM in SODIUM CHLORIDE 0.9% 100 ML IVPB SCH ×3 (02:02→18:00)
[2020-08-29] MEDS: ONDANSETRON 4 MG/2 ML VIAL IVP PRN (06:20)
[2020-08-29] MEDS: KETOROLAC 15 MG/ML 1 ML VIAL IVP SCH ×4 (06:24→23:27)
--- NOTE | 2020-08-29 07:16 | XR ---
EXAMINATION TYPE: XR chest 2V DATE OF EXAM: 08/29/2020 COMPARISON: 04/11/2019 HISTORY: Fever/abscess right thigh TECHNIQUE: Frontal and lateral views of the chest are obtained. FINDINGS: There is no focal air space opacity, pleural effusion, or pneumothorax seen. The cardiac silhouette size is within normal limits. The osseous structures are intact. IMPRESSION: No acute cardiopulmonary process.
[2020-08-29] MEDS: VANCOMYCIN 1,500 MG in SODIUM CHLORIDE 0.9% 250 ML IVPB SCH ×2 (08:23→20:00)
[2020-08-29] MEDS: HYDROcodone/APAP 5-325MG 1 EACH TAB PO PRN ×3 (10:18→20:56)
[2020-08-29] MEDS: PANTOPRAZOLE 40 MG/10 ML VIAL IVP SCH (10:19)
[2020-08-29] MEDS: DEXTROSE 5%-0.9% NACL 1,000 ML IV SCH ×2 (12:22→20:00)
--- NOTE | 2020-08-29 12:53 | P.HPIM ---
History of Present Illness H&P Date: 08/29/20 HISTORY OF PRESENT ILLNESS This is a 44-year-old female patient of Dr. Rea with past medical history of seizure disorder seen by Dr. Galeano but not on medication, gastroesophageal acid reflux, morbid obesity with previous lap band surgery in 2010 followed by gastric sleeve in 2018. The patient states that she developed a swollen area on her right thigh while she was watching fireworks one night on August 23. Later that evening the area was sore and she had just a little red spot. Now the area is swollen to the upper thigh area along with fever and nausea and vomiting. Her last meal was about 3 days ago. She states her front thigh feels like it is on fire and going to burst. She states she has not seen her PCP. Patient presented to [facility] emergency center for evaluation. It was noted the patient had a witnessed seizure in the ER. Maria De Jesus bradley states that she felt hot and dizzy and vomiting but she does not recall a seizure. She was told she was "flopping around." Patient states that she has only had one seizure in the past and was seen by Dr. Galeano and did not require any medications. Patient was febrile with temperature 102.5, tachycardic at initially 121 E. per minute, respiratory rate 28, blood pressure 147/77, pulse ox 99% on room air. WBC 15.5, hemoglobin 11.1, platelet count 514. INR 1.0. CO2 19 otherwise electrolytes normal. BUN 9, creatinine 0.6. Lactic acid 1.8. Blood sugar 94. Albumin 4.2. Liver function tests were normal. Urinalysis clear with blood large, RBCs greater than 182, WBC 6. Coronavirus PCR not detected. She has been started on Zosyn and vancomycin, consult in place with general surgery and infectious disease. REVIEW OF SYSTEMS Constitutional: Reports fever, Reports chills, no night sweats. No weight change. No weakness, Reports fatigue no lethargy. No daytime sleepiness. EENT: No headache. No blurred vision or double vision, no loss of vision. No loss of Hearing, no ringing in the ears, no dizziness. No nasal drainage or congestion. No epistaxis. No sore throat. Lungs: No shortness of breath, cough, no sputum production. No wheezing. Cardiovascular: No chest pain, no lower extremity edema. No palpitations. No paroxysmal nocturnal dyspnea. No orthopnea. No lightheadedness or dizziness. No syncopal episodes. Abdominal: No abdominal pain. Reports nausea, Reportsvomiting. No diarrhea. No constipation. No bloody or tarry stools.. No loss of appetite. Genitourinary: No dysuria, increased frequency, urgency. No urinary retention. Musculoskeletal: No myalgias. No muscle weakness, no gait dysfunction, no frequent falls. No back pain. No neck pain. Integumentary: Reports wounds/redness and edema. No rash or pruritus. No unusual bruising. No change in hair or nails. Neurologic: No aphasia. No facial droop. No change in mentation. No head injury. No headache. No paralysis. No paresthesia. Psychiatric: No depression. No anxiety. No mood swings. Endocrine: No abnormal blood sugars. No weight change. No excessive sweating or thirst. No cold intolerance. SOCIAL HISTORY Patient is a lifelong nonsmoker, she smokes marijuana regularly, no alcohol use. No illicit drug use. FAMILY HISTORY Mother is alive with history of breast cancer and hypertension. Father fro m suicide. Patient has 1 brother with no major medical problems. Patient does not have any sisters. Patient has one son 6 years old with no major medical problems. PHYSICAL EXAMINATION Gen: This is a 44-year-old female. Patient is resting in bed and appears to be somewhat comfortable HEENT: Head is atraumatic, normocephalic. Pupils equal, round. Sclerae is a nicteric. NECK: Supple. No JVD. No lymphadenopathy. No thyromegaly. LUNGS: Clear to auscultation. No wheezes or rhonchi. No intercostal retractions. HEART: Regular rate and rhythm. No murmur. ABDOMEN: Soft. Bowel sounds are present. No masses. No tenderness. EXTREMITIES: No pedal edema. No calf tenderness. Significant erythema and firmness to the right medial proximal 5 area, positive right inguinal lymph node enlargement. NEUROLOGICAL: Patient is awake, alert and oriented x3. Cranial nerves 2 through 12 are grossly intact. ASSESSMENT AND PLAN 1. Sepsis secondary to right thigh abscess. Continue Zosyn and vancomycin, consult in place with general surgery and infectious disease. Patient will be made nothing by mouth status until seen by general surgery. Blood culture is status received. 2. Possible seizure activity while in the emergency center. EEG ordered. 3. History of gastric reflux and GI prophylaxis. Patient started on Protonix 40 mg IV push daily. 4. DVT prophylaxis. SCDs and KAMILLA hose. 5. History of morbid obesity. Patient will be admitted to the hospital for a minimum of 2 night stay. DISCHARGE PLAN home. Impression and plan of care have been directed as dictated by the signing physician. Raquel Andujar nurse practitioner acting as scribe for signing physician. Past Medical History Past Medical History: GERD/Reflux, Seizure Disorder Additional Past Medical History / Comment(s): Hx of migraines, elevated HR, one seizure/unknown cause 2016; "Severe refux, awakening in noc w/ choking since gastric sleeve surgery." History of Any Multi-Drug Resistant Organisms: None Reported Past Surgical History: Bariatric Surgery, Cholecystectomy, Orthopedic Surgery Additional Past Surgical History / Comment(s): lap band 2009, gastic sleeve 04/03; EGD; IVF; metatarsus abduction/age 6; Past Anesthesia/Blood Transfusion Reactions: Motion Sickness, Postoperative Nausea & Vomiting (PONV) Additional Past Anesthesia/Blood Transfusion Reaction / Comment(s): no hx of blood transfusion Past Psychological History: Anxiety, Depression Smoking Status: Never smoker Past Alcohol Use History: None Reported Additional Past Alcohol Use History / Comment(s): Smoked as teen for few years on/off Past Drug Use History: Marijuana Additional Drug Use History / Comment(s): Rare use. - Past Family History Mother Family Medical History: Cancer, Hypertension Additional Family Medical History / Comment(s): Breast CA Brother(s) Family Medical History: No Reported History Father History Unknown: Yes Additional Family Medical History / Comment(s): father of suicide . Medications and Allergies Home Medications Medication Instructions Recorded Confirmed Type HYDROcodone/APAP 5-325MG [[place] 1 tab PO BID PRN 08/28/20 08/28/20 History 5-325] Allergies Allergy/AdvReac Type Severity Reaction Status Date / Time aspirin Allergy Unknown Verified 08/28/20 22:02 ibuprofen [From Motrin] Allergy Unknown Verified 08/28/20 22:02 Physical Exam Vitals: Vital Signs Temp Pulse Pulse Resp BP BP Pulse Ox 08/29/20 08:10 98.8 F 94 18 115/71 98 07/16/21 06:31 99.5 F 08/29/20 02:00 98.4 F 92 16 108/70 100 08/28/20 21:34 98.9 F 81 16 103/65 97 08/28/20 21:11 99.1 F 93 18 111/65 98 08/28/20 19:26 99.8 F H 90 18 114/63 96 08/28/20 17:56 102.5 F H 121 H 28 H 147/77 99 Intake and Output 08/28/20 08/29/20 08/29/20 22:59 06:59 14:59 Output Total 500 Balance -500 Output: Urine 500 Other: Weight 77.2 kg Results CBC & Chem 7: 08/28/20 18:37 08/28/20 18:37 Labs: Abnormal Lab Results - Last 24 Hours (Table) 08/28/20 08/28/20 08/28/20 Range/Units 18:37 18:37 18:50 WBC 15.5 H (3.8-10.6) k/uL Hgb 11.1 L (11.4-16.0) gm/dL Hct 33.5 L (34.0-46.0) % Plt Count 514 H (150-450) k/uL Neutrophils # 13.1 H (1.3-7.7) k/uL Carbon Dioxide 19 L (22-30) mmol/L Ur Specific [place] >1.050 H (1.001-1.035) Urine Protein Trace H (Negative) Urine Ketones 2+ H (Negative) Urine Blood Large H (Negative) Urine RBC >182 H (0-5) /hpf Urine WBC 6 H (0-5) /hpf Thrombosis Risk Factor Assmnt - Choose All That Apply Any of the Below Risk Factors Present?: Yes Each Factor Represents 1 point: Age 41-60 years, Obesity (BMI >25) Other Risk Factors: No Other congenital or acquired thrombophilia - If yes, enter type in comment: No Thrombosis Risk Factor Assessment Total Risk Factor Score: 2 Thrombosis Risk Factor Assessment Level: Low Risk
--- NOTE | 2020-08-29 14:54 | EEG ---
ELECTROENCEPHALOGRAM REPORT DATE OF SERVICE: 08/29/2020. PREAMBLE: This is a 44-year-old female with a history of seizure disorder, admitted with right thigh cellulitis and abscess. The patient has not had any seizure for last 3 years. The patient is currently on [place], Dilaudid, Toradol, vancomycin, Zofran, Protonix, piperacillin. EEG FINDINGS: This is a 21 channel routine EEG recording in a patient utilizing 10/20 international system with referential and bipolar montages. The background consists of well developed, well regulated, moderate voltage activity in 9-10 hertz alpha. Background is posterior dominant and reactive to eye opening and closing. The patient was mostly drowsy and then in stage 2 sleep with presence of vertex waves and sleep spindles. Photic stimulation and hyperventilation were not performed. No focal or generalized epileptiform activity was seen. The EKG channel showed no arrhythmia. IMPRESSION: This is a normal EEG during wakefulness, drowsiness and stage 2 sleep. No focal, lateralized, or epileptiform activity was seen. MMODL / IJN: [id number] /
--- NOTE | 2020-08-29 15:52 | P.GSCN ---
History of Present Illness Consult date: 08/29/20 History of present illness: 44-year-old female presented to the emergency department with complaints of pain in the right thigh. She states that approximately 1 week ago, she had a small red raised lesion on the right thigh and that over the last week it has significantly increased in size and is tender to touch. Patient is noted to have fevers and nausea and vomiting. On workup, the patient is noted to have cellulitic changes to the right thigh. She apparently also had a witnessed seizure in the emergency department. CT of the right eye was performed with ce llulitic changes noted and possible forming abscess. Surgery is consulted for evaluation of this abscess. Patient has been started on IV antibiotics. Review of Systems All systems: negative Past Medical History Past Medical History: GERD/Reflux, Seizure Disorder Additional Past Medical History / Comment(s): Hx of migraines, elevated HR, one seizure/unknown cause 2016; "Severe refux, awakening in noc w/ choking since gastric sleeve surgery." History of Any Multi-Drug Resistant Organisms: None Reported Past Surgical History: Bariatric Surgery, Cholecystectomy, Orthopedic Surgery Additional Past Surgical History / Comment(s): lap band 2009, gastic sleeve 04/03; EGD; IVF; metatarsus abduction/age 6; Past Anesthesia/Blood Transfusion Reactions: Motion Sickness, Postoperative Nausea & Vomiting (PONV) Additional Past Anesthesia/Blood Transfusion Reaction / Comm: no hx of blood transfusion Past Psychological History: Anxiety, Depression Smoking Status: Never smoker Past Alcohol Use History: None Reported Additional Past Alcohol Use History / Comment(s): Smoked as teen for few years on/off Past Drug Use History: Marijuana Additional Drug Use History / Comment(s): Rare use. - Past Family History Mother Family Medical History: Cancer, Hypertension Additional Family Medical History / Comment(s): Breast CA Brother(s) Family Medical History: No Reported History Father History Unknown: Yes Additional Family Medical History / Comment(s): father of suicide . Medications and Allergies Home Medications Medication Instructions Recorded Confirmed Type HYDROcodone/APAP 5-325MG [[place] 1 tab PO BID PRN 08/28/20 08/28/20 History 5-325] Allergies Allergy/AdvReac Type Severity Reaction Status Date / Time aspirin Allergy Unknown Verified 08/28/20 22:02 ibuprofen [From Motrin] Allergy Unknown Verified 08/28/20 22:02 Surgical - Exam Osteopathic Statement: *. No significant issues noted on an osteopathic structural exam other than those noted in the History and Physical/Consult. Vital Signs Temp Pulse Resp BP Pulse Ox 102.5 F H 121 H 28 H 147/77 99 08/28/20 17:56 08/28/20 17:56 08/28/20 17:56 08/28/20 17:56 08/28/20 17:56 - General no distress - Eyes normal ocular movement - ENT no hearing loss - Neck trachea midline - Respiratory normal respiratory effort - Abdomen Abdomen: soft, non tender - Integumentary Right anterior thigh with cellulitic changes and erythema. Erythema appears to be improved from previous marking site of cellulitic changes. There is an indurated area at the center of this area. There is no palpable fluctuance. Results - Labs 08/28/20 18:37 08/28/20 18:37 Abnormal Lab Results - Last 24 Hours (Table) 08/28/20 08/28/20 08/28/20 Range/Units 18:37 18:37 18:50 WBC 15.5 H (3.8-10.6) k/uL Hgb 11.1 L (11.4-16.0) gm/dL Hct 33.5 L (34.0-46.0) % Plt Count 514 H (150-450) k/uL Neutrophils # 13.1 H (1.3-7.7) k/uL Carbon Dioxide 19 L (22-30) mmol/L Ur Specific [place] >1.050 H (1.001-1.035) Urine Protein Trace H (Negative) Urine Ketones 2+ H (Negative) Urine Blood Large H (Negative) Urine RBC >182 H (0-5) /hpf Urine WBC 6 H (0-5) /hpf Diabetes panel 08/28/20 Range/Units 18:37 Sodium 138 (137-145) mmol/L Potassium 3.7 (3.5-5.1) mmol/L Chloride 105 (98-107) mmol/L Carbon Dioxide 19 L (22-30) mmol/L BUN 9 (7-17) mg/dL Creatinine 0.60 (0.52-1.04) mg/dL Glucose 94 (74-99) mg/dL Calcium 9.9 (8.4-10.2) mg/dL AST 16 (14-36) U/L ALT 10 (4-34) U/L Alkaline Phosphatase 86 (38-126) U/L Total Protein 6.9 (6.3-8.2) g/dL Albumin 4.2 (3.5-5.0) g/dL Calcium panel 08/28/20 Range/Units 18:37 Calcium 9.9 (8.4-10.2) mg/dL Albumin 4.2 (3.5-5.0) g/dL Pituitary panel 08/28/20 Range/Units 18:37 Sodium 138 (137-145) mmol/L Potassium 3.7 (3.5-5.1) mmol/L Chloride 105 (98-107) mmol/L Carbon Dioxide 19 L (22-30) mmol/L BUN 9 (7-17) mg/dL Creatinine 0.60 (0.52-1.04) mg/dL Glucose 94 (74-99) mg/dL Calcium 9.9 (8.4-10.2) mg/dL Adrenal panel 08/28/20 Range/Units 18:37 Sodium 138 (137-145) mmol/L Potassium 3.7 (3.5-5.1) mmol/L Chloride 105 (98-107) mmol/L Carbon Dioxide 19 L (22-30) mmol/L BUN 9 (7-17) mg/dL Creatinine 0.60 (0.52-1.04) mg/dL Glucose 94 (74-99) mg/dL Calcium 9.9 (8.4-10.2) mg/dL Total Bilirubin 0.5 (0.2-1.3) mg/dL AST 16 (14-36) U/L ALT 10 (4-34) U/L Alkaline Phosphatase 86 (38-126) U/L Total Protein 6.9 (6.3-8.2) g/dL Albumin 4.2 (3.5-5.0) g/dL Assessment and Plan Plan: 44-year-old female with cellulitic changes of the right thigh. Based on CT, there appears to be a possible forming abscess, however no mature abscess at this time on exam or on imaging. I would recommend continuing IV antibiotics. Patient would likely benefit from incision and drainage, however we will await further maturation of an abscess. We will closely monitor and perform I&Djb at bedside.
[2020-08-30] MEDS: PIPERACILLIN-TAZOBACTAM 3.375 GM in SODIUM CHLORIDE 0.9% 100 ML IVPB SCH ×2 (02:34→11:05)
[2020-08-30] MEDS: ONDANSETRON 4 MG/2 ML VIAL IVP PRN ×4 (03:02→20:54)
[2020-08-30] MEDS: HYDROmorphone 1 MG/ML 1 ML SYRINGE IVP PRN ×2 (03:02→09:33)
[2020-08-30] MEDS: KETOROLAC 15 MG/ML 1 ML VIAL IVP SCH ×3 (06:42→18:28)
[2020-08-30] MEDS: HYDROcodone/APAP 5-325MG 1 EACH TAB PO PRN ×3 (06:46→20:56)
[2020-08-30] MEDS: DEXTROSE 5%-0.9% NACL 1,000 ML IV SCH ×3 (06:49→18:28)
[2020-08-30] MEDS ORDERED: VANCOMYCIN TROUGH DUE 1 EACH MISC MISCELLANE ONE (07:00)
[2020-08-30 07:21] LABS: African American GFR (CKD) >90 (>60 ml/min/1.73 sqM); Anion Gap 4 mmol/L; Blood Urea Nitrogen 8 mg/dL (7-17); Calcium 8.1 mg/dL (8.4-10.2); Carbon Dioxide 25 mmol/L (22-30); Chloride 110 mmol/L (98-107); Glucose 104 mg/dL (74-99); Non-African American GFR(CKD) >90 (>60 ml/min/1.73 sqM); Potassium 3.6 mmol/L (3.5-5.1); Sodium 139 mmol/L (137-145)
[2020-08-30 07:25] LABS: HCT 28.4 % (34.0-46.0); Hypochromasia Marked; MCH 26.7 pg (25.0-35.0); MCHC 30.1 g/dL (31.0-37.0); MCV 88.7 fL (80.0-100.0); Mean Platelet Volume 6.2; Platelet Count 406 k/uL (150-450); RDW 14.7 % (11.5-15.5)
[2020-08-30 07:32] LABS: HGB 8.5 gm/dL (11.4-16.0)
[2020-08-30] MEDS: PANTOPRAZOLE 40 MG/10 ML VIAL IVP SCH (07:48)
[2020-08-30] MEDS: VANCOMYCIN 1,750 MG in SODIUM CHLORIDE 0.9% 500 ML 500 ML IVPB SCH ×2 (07:57→19:54)
[2020-08-30] MEDS ORDERED: LIDOCAINE 1%-EPI 1:100,000 20 ML VIAL SQ PRN (08:24)
[2020-08-30] MEDS ORDERED: POTASSIUM CHLORIDE ER 20 MEQ TAB.ER PO STA (08:46)
--- NOTE | 2020-08-30 09:51 | P.PCN ---
Date of Procedure: 08/30/20 Preoperative Diagnosis: Right thigh abscess Postoperative Diagnosis: Right thigh abscess Procedure(s) Performed: Incision and drainage of right thigh abscess Anesthesia: local Surgeon: Melissa Deutsch Pathology: other (Cultures of abscess) Condition: stable Disposition: floor Indications for Procedure: 44-year-old female presented to the emergency department with complaints of right thigh pain and swelling. She is found to have cellulitis and abscess formation. Secondary to this, plan is for incision and drainage. Risks, benefits and alternatives were provided to the patient and she did provide consent. Timeout was performed prior to procedure with nurse at bedside. Operative Findings: Approximately 10 mL of purulent drainage Description of Procedure: The patient's right thigh was prepped and draped in regular sterile fashion. Local goal anesthetic was administered. A cruciate incision was made over the palpable fluctuance site. Immediate evacuation of purulent material was noted. Hemostat was used to break loculations. Cultures were obtained. 20 mL of saline was used to flush the abscess cavity. Sterile dressing was applied. Patient tolerated the procedure well.
--- NOTE | 2020-08-30 10:37 | P.CONS ---
History of Present Illness - Reason for Consult Consult date: 08/29/20 Right thigh abscess and cellulitis Requesting physician: Aneta Mendez - Chief Complaint Right thigh pain and swelling 3 days - History of Present Illness Patient is a 44-year-old female presenting to [facility] ER for evaluation of right thigh pain swelling and redness that been getting worse for the last 3 days before presentation to the hospital patient thought she may have a bug bite there was small area of swelling and redness that has progressi vely got worse patient describes the pain to be throbbing intensity almost 7-8 out of 10 and no radiation with associated swelling and redness with the patient has been treated locally with some heat compression however the patient did not have any resolution of her symptoms and she presented to the ER on arrival to the ER the patient did have a fever of 102.5 F patient did have mild tachycardia heart rate of 92 she did have elevated heart rate 15.5 patient did have a CT of the right leg which showed subcutaneous edema or large area of anterior mid thigh consistent with cellulitis with irregular developing fluid collection patient has been started on vancomycin and Zosyn has been admitted to hospital infectious disease was consulted for further management of antibiotic therapy. Review of Systems Positive point has been mentioned in the HPI rest of the systems are negative Past Medical History Past Medical History: GERD/Reflux, Seizure Disorder Additional Past Medical History / Comment(s): Hx of migraines, elevated HR, one seizure/unknown cause 2016; "Severe refux, awakening in noc w/ choking since gastric sleeve surgery." History of Any Multi-Drug Resistant Organisms: None Reported Past Surgical History: Bariatric Surgery, Cholecystectomy, Orthopedic Surgery Additional Past Surgical History / Comment(s): lap band 2009, gastic sleeve 04/03; EGD; IVF; metatarsus abduction/age 6; Past Anesthesia/Blood Transfusion Reactions: Motion Sickness, Postoperative Nausea & Vomiting (PONV) Additional Past Anesthesia/Blood Transfusion Reaction / Comm: no hx of blood t ransfusion Past Psychological History: Anxiety, Depression Smoking Status: Never smoker Past Alcohol Use History: None Reported Additional Past Alcohol Use History / Comment(s): Smoked as teen for few years on/off Past Drug Use History: Marijuana Additional Drug Use History / Comment(s): Rare use. - Past Family History Mother Family Medical History: Cancer, Hypertension Additional Family Medical History / Comment(s): Breast CA Brother(s) Family Medical History: No Reported History Father History Unknown: Yes Additional Family Medical History / Comment(s): father of suicide . Medications and Allergies Home Medications Medication Instructions Recorded Confirmed Type HYDROcodone/APAP 5-325MG [[place] 1 tab PO BID PRN 08/28/20 08/28/20 History 5-325] Allergies Allergy/AdvReac Type Severity Reaction Status Date / Time aspirin Allergy Unknown Verified 08/28/20 22:02 ibuprofen [From Motrin] Allergy Unknown Verified 08/28/20 22:02 Physical Exam Vitals: Vital Signs Temp Pulse Pulse Resp BP BP Pulse Ox 08/29/20 08:10 98.8 F 94 18 115/71 98 08/29/20 06:31 99.5 F 08/29/20 02:00 98.4 F 92 16 108/70 100 08/28/20 21:34 98.9 F 81 16 103/65 97 08/28/20 21:11 99.1 F 93 18 111/65 98 08/28/20 19:26 99.8 F H 90 18 114/63 96 08/28/20 17:56 102.5 F H 121 H 28 H 147/77 99 Intake and Output 08/28/20 08/29/20 08/29/20 22:59 06:59 14:59 Output Total 500 Balance -500 Output: Urine 500 Other: Weight 77.2 kg GENERAL DESCRIPTION: Middle-aged female lying in bed, no distress. No tachypnea or accessory muscle of respiration use. HEENT: Shows Pallor , no scleral icterus. Oral mucous membrane is dry. No ph aryngeal erythema or thrush NECK: Trachea central, no thyromegaly. LUNGS: Unlabored breathing. Clear to auscultation anteriorly. No wheeze or crackle. HEART: S1, S2, regular rate and rhythm. No loud murmur ABDOMEN: Soft, no tenderness , guarding or rigidity, no organomegaly EXTREMITIES: right medial thigh with swelling , redness and induration SKIN: No rash, no masses palpable. NEUROLOGICAL: The patient is awake, alert, oriented x3, mood and affect normal. Results CBC & Chem 7: 08/30/20 06:54 08/30/20 06:54 Labs: Abnormal Lab Results - Last 24 Hours (Table) 08/28/20 08/28/20 08/28/20 Range/Units 18:37 18:37 18:50 WBC 15.5 H (3.8-10.6) k/uL Hgb 11.1 L (11.4-16.0) gm/dL Hct 33.5 L (34.0-46.0) % Plt Count 514 H (150-450) k/uL Neutrophils # 13.1 H (1.3-7.7) k/uL Carbon Dioxide 19 L (22-30) mmol/L Ur Specific [place] >1.050 H (1.001-1.035) Urine Protein Trace H (Negative) Urine Ketones 2+ H (Negative) Urine Blood Large H (Negative) Urine RBC >182 H (0-5) /hpf Urine WBC 6 H (0-5) /hpf Assessment and Plan Assessment: 1-patient presented to hospital with sepsis in this patient who did have fever tachycardia elevated white count source of right thigh abscess which looks like slightly raised upon the colitis more likely from gram-positive skin juan such as Staph aureus or strep and less likely gram-negative infection (1) Sepsis Current Visit: Yes Status: Acute Code(s): A41.9 - SEPSIS, UNSPECIFIED ORGANISM SNOMED Code(s): 10448119 (2) Abscess of right thigh Current Visit: Yes Status: Acute Code(s): L02.415 - CUTANEOUS ABSCESS OF RIGHT LOWER LIMB SNOMED Code(s): 95522707866258983 Plan: 1-await surgical drainage of this abscess and fluid should be sent for Gram stain and culture 2-vancomycin pharmacy to dose her with a target trough of 15 while watching her kidney function and Vanco trough closely. 3-discontinue Zosyn We will follow on clinical condition and cultures to further adjust medication if needed Thank you for this consultation we will follow the patient along with you Time with Patient: Greater than 30
--- NOTE | 2020-08-30 13:31 | P.PN ---
Subjective Progress Note Date: 08/30/20 HISTORY OF PRESENT ILLNESS This is a 44-year-old female patient of Dr. Rea with past medical history of seizure disorder seen by Dr. Galeano but not on medication, gastroesophageal acid reflux, morbid obesity with previous lap band surgery in 2010 followed by gastric sleeve in 2018. The patient states that she developed a swollen area on her right thigh while she was watching fireworks one night on August 23. Later that evening the area was sore and she had just a little red spot. Now the area is swollen to the upper thigh area along with fever and nausea and vomiting. Her last meal was about 3 days ago. She states her front thigh feels like it is on fire and going to burst. She states she has not seen her PCP. Patient presented to [facility] emergency center for evaluation. It was noted the patient had a witnessed seizure in the ER. Patient states that she felt hot and dizzy and vomiting but she does not recall a seizure. She was told she was "flopping around." Patient states that she has only had one seizure in the past and was seen by Dr. Galeano and did not require any medications. Patient was febrile with temperature 102.5, tachycardic at initially 121 E. per minute, respiratory rate 28, blood pressure 147/77, pulse ox 99% on room air. WBC 15.5, hemoglobin 11.1, platelet count 514. INR 1.0. CO2 19 otherwise electrolytes normal. BUN 9, creatinine 0.6. Lactic acid 1.8. Blood sugar 94. Albumin 4.2. Liver function tests were normal. Urinalysis clear with blood large, RBCs greater than 182, WBC 6. Coronavirus PCR not detec kamilla. She has been started on Zosyn and vancomycin, consult in place with general surgery and infectious disease. 08/30: Patient has been seen by Dr. Deutsch and is scheduled for a bedside I&D today. Patient is continued on Zosyn and vancomycin. Patient continues to complain of significant pain to the area. Noted she had a drop in her hemoglobin 8.5 and she states she is on her monthly period. WBC 8.0, platelet count 406. Sodium 139, potassium 3.6, chloride 110, CO2 25, creatinine 0.5. Blood cultures showing no growth at 24 hours. REVIEW OF SYSTEMS Constitutional: Reports fever, Reports chills, no night sweats. No weight change. No weakness, Reports fatigue no lethargy. No daytime sleepiness. EENT: No headache. No blurred vision or double vision, no loss of vision. No loss of Hearing, no ringing in the ears, no dizziness. No nasal drainage or congestion. No epistaxis. No sore throat. Lungs: No shortness of breath, cough, no sputum production. No wheezing. Cardiovascular: No chest pain, no lower extremity edema. No palpitations. No paroxysmal nocturnal dyspnea. No orthopnea. No lightheadedness or dizziness. No syncopal episodes. Abdominal: No abdominal pain. Reports nausea, Reportsvomiting. No diarrhea. No constipation. No bloody or tarry stools.. No loss of appetite. Genitourinary: No dysuria, increased frequency, urgency. No urinary retention. Musculoskeletal: No myalgias. No muscle weakness, no gait dysfunction, no frequent falls. No back pain. No neck pain. Integumentary: Reports wounds/redness and edema. No rash or pruritus. No unusual bruising. No change in hair or nails. Neurologic: No aphasia. No facial droop. No change in mentation. No head injury. No headache. No paralysis. No paresthesia. Psychiatric: No depression. No anxiety. No mood swings. Endocrine: No abnormal blood sugars. No weight change. No excessive sweating or thirst. No cold intolerance. PHYSICAL EXAMINATION Gen: This is a 44-year-old female. Patient is resting in bed and appears to be somewhat comfortable HEENT: Head is atraumatic, normocephalic. Pupils equal, round. Sclerae is anicteric. NECK: Supple. No JVD. No lymphadenopathy. No thyromegaly. LUNGS: Clear to auscultation. No wheezes or rhonchi. No intercostal retractions. HEART: Regular rate and rhythm. No murmur. ABDOMEN: Soft. Bowel sounds are present. No masses. No tenderness. EXTREMITIES: No pedal edema. No calf tenderness. Significant erythema and firmness to the right medial proximal 5 area, positive right inguinal lymph node enlargement. NEUROLOGICAL: Patient is awake, alert and oriented x3. Cranial nerves 2 through 12 are grossly intact. ASSESSMENT AND PLAN 1. Sepsis secondary to right thigh abscess. Continue Zosyn and vancomycin, consult in place with general surgery and infectious disease. Patient will be made nothing by mouth status until seen by general surgery. Blood culture is status received. 2. Possible seizure activity while in the emergency center. EEG ordered. 3. History of gastric reflux and GI prophylaxis. Patient started on Protonix 40 mg IV push daily. 4. Anemia secondary to acute blood loss from menses. 5. DVT prophylaxis. SCDs and KAMILLA hose. 6. History of morbid obesity status post bariatric surgery. DISCHARGE PLAN home. Impression and plan of care have been directed as dictated by the signing physician. Raquel Andujar nurse practitioner acting as scribe for signing physician. Objective - Vital Signs Vital signs: Vital Signs Temp 97.7 F 08/30/20 07:52 Pulse 71 08/30/20 07:52 Resp 16 08/30/20 07:52 BP 95/57 08/30/20 07:52 Pulse Ox 98 08/30/20 08:22 Intake & Output 08/29/20 08/30/20 08/30/20 18:59 06:59 18:59 Intake Total 120 Output Total 500 800 Balance -500 -680 Intake: Oral 120 Output: Urine 500 800 Other: Voiding Method Toilet # Voids 1 - Labs CBC & Chem 7: 08/30/20 06:54 08/30/20 06:54 Labs: Abnormal Lab Results - Last 24 Hours (Table) 08/30/20 08/30/20 Range/Units 06:54 06:54 RBC 3.20 L (3.80-5.40) m/uL Hgb 8.5 L D (11.4-16.0) gm/dL Hct 28.4 L (34.0-46.0) % MCHC 30.1 L (31.0-37.0) g/dL Chloride 110 H (98-107) mmol/L Creatinine 0.50 L (0.52-1.04) mg/dL Glucose 104 H (74-99) mg/dL Calcium 8.1 L (8.4-10.2) mg/dL Microbiology - Last 24 Hours (Table) 08/28/20 18:15 Blood Culture - Preliminary Blood No Growth after 24 hours 08/28/20 18:30 Blood Culture - Preliminary Blood No Growth after 24 hours
--- NOTE | 2020-08-30 18:09 | PN ---
PROGRESS NOTE DATE OF SERVICE: 08/30/2020 REASON FOR FOLLOWUP: Right thigh abscess and cellulitis. INTERVAL HISTORY: The patient was taken to the OR this morning. Patient status post drainage of the right thigh abscess. Patient tolerated the procedure. Some nausea, no vomiting, no chest pain, shortness of breath, abdominal pain, no worsening pain to the right thigh. PHYSICAL EXAMINATION: Blood pressure 110/70 with a pulse of 66, temperature is 97.8, she is 98% on room air. General description is a middle-aged female up in the bed in no distress. Respiratory system unlabored breathing, clear to auscultation anteriorly. Heart S1, S2. Regular. Abdominal no tenderness. LABS: Hemoglobin 8.1, white count 8.0 ,BUN of 8, creatinine 0.50. DIAGNOSTIC IMPRESSION AND PLAN: Patient with right thigh abscess status post drainage. Waiting for the culture to finalize. Continue with vancomycin. Adjust antibiotic further based on culture report. Continue supportive care. MMODL / IJN: [id number] /
[2020-08-31] MEDS: KETOROLAC 15 MG/ML 1 ML VIAL IVP SCH ×4 (00:19→16:41)
[2020-08-31] MEDS: DEXTROSE 5%-0.9% NACL 1,000 ML IV SCH ×2 (00:20→08:15)
[2020-08-31] MEDS: VANCOMYCIN 1,750 MG in SODIUM CHLORIDE 0.9% 500 ML 500 ML IVPB SCH ×2 (08:14→19:30)
[2020-08-31] MEDS: PANTOPRAZOLE 40 MG/10 ML VIAL IVP SCH (08:15)
[2020-08-31] MEDS ORDERED: ACETAMINOPHEN TAB 325 MG TAB PO PRN (08:51)
--- NOTE | 2020-08-31 09:13 | P.PN ---
Subjective Progress Note Date: 08/31/20 Patient seen and examined at bedside. States she is feeling much better. Per nursing, no significant drainage from wound site. Objective - Vital Signs Vital signs: Vital Signs Temp 97.8 F 08/31/20 07:25 Pulse 63 08/31/20 07:25 Resp 16 08/31/20 07:25 BP 116/72 08/31/20 07:25 Pulse Ox 98 08/31/20 07:25 Intake & Output 08/30/20 08/31/20 08/31/20 18:59 06:59 18:59 Intake Total 1090 2000 Output Total 460 Balance 630 2000 Intake: Intake, IV Titration 350 2000 Amount Dextrose 5%-0.9% NaCl 1, 1500 000 ml @ 125 mls/hr IV . Q8H [facility] Rx#:[id number] Piperacillin-Tazobactam 3 100 .375 gm In Sodium Chloride 0.9% 100 ml @ 25 mls/hr IVPB Q8H [facility] Rx#: [id number] Vancomycin 1,500 mg In 250 Sodium Chloride 0.9% 250 ml @ 125 mls/hr IVPB Q12H [facility] Rx#:[id number] Vancomycin 1,750 mg In 500 Sodium Chloride 0.9% 500 ml 500 ml @ 167 mls/hr IVPB Q12H [facility] Rx#: [id number] Oral 740 Output: Urine 350 Emesis 110 Other: Voiding Method Toilet # Voids 2 4 1 - Constitutional General appearance: Present: cooperative - Integumentary Integumentary Comment(s): Right thigh incision and drainage site with mild active drainage, some surrounding erythema, improving cellulitis - Labs CBC & Chem 7: 08/30/20 06:54 08/30/20 06:54 Labs: Microbiology - Last 24 Hours (Table) 08/30/20 09:40 Gram Stain - Preliminary Thigh - Right Wound Culture - Preliminary 08/28/20 18:15 Blood Culture - Preliminary Blood No Growth after 48 hours 08/28/20 18:30 Blood Culture - Preliminary Blood No Growth after 48 hours 08/30/20 09:40 Anaerobic Culture - Preliminary Thigh - Right Assessment and Plan Plan: Status post incision and drainage of right thigh abscess. Patient is improving. Await cultures. Medical recommendations.
--- NOTE | 2020-08-31 10:39 | P.PN ---
Subjective Progress Note Date: 08/31/20 HISTORY OF PRESENT ILLNESS This is a 44-year-old female patient of Dr. Rea with past medical history of seizure disorder seen by Dr. Galeano but not on medication, gastroesophageal acid reflux, morbid obesity with previous lap band surgery in 2010 followed by gastric sleeve in 2018. The patient states that she developed a swollen area on her right thigh while she was watching fireworks one night on August 23. Later that evening the area was sore and she had just a little red spot. Now the area is swollen to the upper thigh area along with fever and nausea and vomiting. Her last meal was about 3 days ago. She states her front thigh feels like it is on fire and going to burst. She states she has not seen her PCP. Patient presented to [facility] emergency center for evaluation. It was noted the patient had a witnessed seizure in the ER. Patient states that she felt hot and dizzy and vomiting but she does not recall a seizure. She was told she was "flopping around." Patient states that she has only had one seizure in the past and was seen by Dr. Galeano and did not require any medications. Patient was febrile with temperature 102.5, tachycardic at initially 121 E. per minute, respiratory rate 28, blood pressure 147/77, pulse ox 99% on room air. WBC 15.5, hemoglobin 11.1, platelet count 514. INR 1.0. CO2 19 otherwise electrolytes normal. BUN 9, creatinine 0.6. Lactic acid 1.8. Blood sugar 94. Albumin 4.2. Liver function tests were normal. Urinalysis clear with blood large, RBCs greater than 182, WBC 6. Coronavirus PCR not detec kamilla. She has been started on Zosyn and vancomycin, consult in place with general surgery and infectious disease. 08/30: Patient has been seen by Dr. Deutsch and is scheduled for a bedside I&D today. Patient is continued on Zosyn and vancomycin. Patient continues to complain of significant pain to the area. Noted she had a drop in her hemoglobin 8.5 and she states she is on her monthly period. WBC 8.0, platelet count 406. Sodium 139, potassium 3.6, chloride 110, CO2 25, creatinine 0.5. Blood cultures showing no growth at 24 hours. 08/31: Patient underwent I&D yesterday with removal 10-15 mL of pus from the left thigh abscess. Patient states that she is feeling so much better today. She is only on Toradol and Ciales for pain. She states the pain is significantly improved. She denies any nausea which is resolved. Patient is continued on vancomycin and wound culture is in progress. She's been afebrile, heart rate 63, blood pressure 116/72 and pulse ox 98% on room air. Anticipate probable home tomorrow once wound culture has been finalized. EEG was normal. REVIEW OF SYSTEMS Constitutional: Reports fever, Reports chills, no night sweats. No weight c hange. No weakness, Reports fatigue no lethargy. No daytime sleepiness. EENT: No headache. No blurred vision or double vision, no loss of vision. No loss of Hearing, no ringing in the ears, no dizziness. No nasal drainage or congestion. No epistaxis. No sore throat. Lungs: No shortness of breath, cough, no sputum production. No wheezing. Cardiovascular: No chest pain, no lower extremity edema. No palpitations. No paroxysmal nocturnal dyspnea. No orthopnea. No lightheadedness or dizziness. No syncopal episodes. Abdominal: No abdominal pain. Reports nausea, Reportsvomiting. No diarrhea. No constipation. No bloody or tarry stools.. No loss of appetite. Genitourinary: No dysuria, increased frequency, urgency. No urinary retention. Musculoskeletal: No myalgias. No muscle weakness, no gait dysfunction, no frequent falls. No back pain. No neck pain. Integumentary: Reports wounds/redness and edema-improved. No rash or pruritus. No unusual bruising. No change in hair or nails. Neurologic: No aphasia. No facial droop. No change in mentation. No head injury. No headache. No paralysis. No paresthesia. Psychiatric: No depression. No anxiety. No mood swings. Endocrine: No abnormal blood sugars. No weight change. No excessive sweating or thirst. No cold intolerance. PHYSICAL EXAMINATION Gen: This is a 44-year-old female. Patient is resting in bed and appears to be somewhat comfortable HEENT: Head is atraumatic, normocephalic. Pupils equal, round. Sclerae is anicteric. NECK: Supple. No JVD. No lymphadenopathy. No thyromegaly. LUNGS: Clear to auscultation. No wheezes or rhonchi. No intercostal retractions. HEART: Regular rate and rhythm. No murmur. ABDOMEN: Soft. Bowel sounds are present. No masses. No tenderness. EXTREMITIES: No pedal edema. No calf tenderness. Surgical wound to the mid proximal anterior thigh with packing, minimal blood and drainage on dressing. Significant improvement of erythema, edema and tenderness.. NEUROLOGICAL: Patient is awake, alert and oriented x3. Cranial nerves 2 through 12 are grossly intact. ASSESSMENT AND PLAN 1. Sepsis secondary to right thigh abscess. Continue Zosyn and vancomycin, consult in place with general surgery and infectious disease. Patient will be made nothing by mouth status until seen by general surgery. Blood culture is status received. 2. Possible seizure activity while in the emergency center. EEG ordered. 3. History of gastric reflux and GI prophylaxis. Patient started on Protonix 40 mg IV push daily. 4. Anemia secondary to acute blood loss from menses. 5. DVT prophylaxis. SCDs and KAMILLA hose. 6. History of morbid obesity status post bariatric surgery. DISCHARGE PLAN home on Tuesday. Impression and plan of care have been directed as dictated by the signing physician. Raquel Andujar nurse practitioner acting as scribe for signing physician. Objective - Vital Signs Vital signs: Vital Signs Temp 97.8 F 08/31/20 07:25 Pulse 63 08/31/20 07:25 Resp 16 08/31/20 07:25 BP 116/72 08/31/20 07:25 Pulse Ox 98 08/31/20 07:25 Intake & Output 08/30/20 08/31/20 08/31/20 18:59 06:59 18:59 Intake Total 1090 2000 Output Total 460 Balance 630 2000 Intake: Intake, IV Titration 350 2000 Amount Dextrose 5%-0.9% NaCl 1, 1500 000 ml @ 125 mls/hr IV . Q8H [facility] Rx#:[id number] Piperacillin-Tazobactam 3 100 .375 gm In Sodium Chloride 0.9% 100 ml @ 25 mls/hr IVPB Q8H [facility] Rx#: [id number] Vancomycin 1,500 mg In 250 Sodium Chloride 0.9% 250 ml @ 125 mls/hr IVPB Q12H [facility] Rx#:[id number] Vancomycin 1,750 mg In 500 Sodium Chloride 0.9% 500 ml 500 ml @ 167 mls/hr IVPB Q12H [facility] Rx#: [id number] Oral 740 Output: Urine 350 Emesis 110 Other: Voiding Method Toilet # Voids 2 4 1 - Labs CBC & Chem 7: 08/30/20 06:54 08/30/20 06:54 Labs: Microbiology - Last 24 Hours (Table) 08/30/20 09:40 Gram Stain - Preliminary Thigh - Right Wound Culture - Preliminary 08/28/20 18:15 Blood Culture - Preliminary Blood No Growth after 48 hours 08/28/20 18:30 Blood Culture - Preliminary Blood No Growth after 48 hours 08/30/20 09:40 Anaerobic Culture - Preliminary Thigh - Right
--- NOTE | 2020-08-31 15:12 | PN ---
PROGRESS NOTE DATE OF SERVICE: 08/31/2020 REASON FOR FOLLOWUP: Right thigh MRSA abscess and cellulitis. INTERVAL HISTORY: The patient is afebrile. The patient is feeling better. Breathing comfortably. Right thigh pain and swelling have slightly decreased. No chest pain, shortness of breath, cough, abdominal pain or diarrhea. PHYSICAL EXAMINATION: Blood pressure 116/72 with a pulse of 53, temperature 97.8. She is 98% on room air. General description is a middle-aged female lying in bed in no distress. Respiratory system: Unlabored breathing, clear to auscultation anteriorly. Heart S1, S2. Regular rate and rhythm. Abdomen is soft, no tenderness. Right leg is currently dressed up with no obvious drainage on the dressing. LABS: No new labs have been obtained today. Culture showing presumptive MRSA. DIAGNOSTIC IMPRESSION AND PLAN: Patient with right thigh abscess status post surgical drainage. Culture with presumptive MRSA. Patient is covered with vancomycin. Antibiotic will be adjusted further based on culture report. Continue supportive care. MMODL / IJN: [id number] /
[2020-09-01 06:50] LABS: African American GFR (CKD) >90 (>60 ml/min/1.73 sqM); Non-African American GFR(CKD) >90 (>60 ml/min/1.73 sqM)
[2020-09-01] MEDS ORDERED: VANCOMYCIN TROUGH DUE 1 EACH MISC MISCELLANE ONE (07:00)
[2020-09-01] MEDS: PANTOPRAZOLE 40 MG/10 ML VIAL IVP SCH (08:14)
[2020-09-01] MEDS: VANCOMYCIN 1,750 MG in SODIUM CHLORIDE 0.9% 500 ML 500 ML IVPB SCH (08:14)
[2020-09-01 08:56] VITALS: BP 125/80; PULSE 67; RESP 17; TEMP 98.6
[2020-09-01 09:37] LABS: HGB 9.6 gm/dL (11.4-16.0); Hypochromasia Slight; MCH 26.9 pg (25.0-35.0); MCHC 30.8 g/dL (31.0-37.0); MCV 87.2 fL (80.0-100.0); Mean Platelet Volume 7.6; Platelet Count 428 k/uL (150-450); RBC 3.56 m/uL (3.80-5.40); RDW 14.9 % (11.5-15.5); WBC 7.7 k/uL (3.8-10.6)
--- NOTE | 2020-09-01 13:12 | PN ---
PROGRESS NOTE DATE OF SERVICE: 09/01/2020. REASON FOR FOLLOWUP: Right thigh MRSA abscess and cellulitis. INTERVAL HISTORY: The patient is afebrile. The patient is breathing comfortably. Patient denies any chest pain, shortness of breath, cough, no nausea. No abdominal pain. No diarrhea. EXAMINATION: Blood pressure 125/80. Pulse 67. Temperature 98.4. She is 98% on room air. General description is a middle aged female lying in bed in no distress. Respiratory system: Unlabored breathing, clear to auscultation anteriorly. Heart: S1, S2. Regular rate and rhythm. Abdomen soft, no tenderness. Right thigh swelling, and redness has decreased. Minimal induration. No drainage. LABORATORY DATA: Hemoglobin 9.1. White count 7.7, DIAGNOSTIC IMPRESSION AND PLAN: Patient with right thigh abscess and cellulitis status post drainage. Cultures with MRSA. She is on vancomycin. Plan to finish therapy with oral Bactrim DS and close outpatient followup. MMODL / IJN: [id number] /
--- NOTE | 2020-09-01 13:46 | P.DS ---
Providers Date of admission: 08/30/20 12:51 Expected date of discharge: 09/01/20 Attending physician: Aneta Mendez MD Consults: 08/29/20 06:17 Consult Physician Routine Consulting Provider: Melissa Deutsch Consult Reason/Comments: Right thigh abscess Do you want consulting provider notified?: Yes 08/29/20 06:18 Consult Physician Routine Consulting Provider: Prosper Silva Consult Reason/Comments: Right thigh cellulitis and abscess Do you want consulting provider notified?: Yes Primary care physician: [facility] Course: HISTORY OF PRESENT ILLNESS This is a 44-year-old female patient of Dr. Rea with past medical history of seizure disorder seen by Dr. Galeano but not on medication, gastroesophageal acid reflux, morbid obesity with previous lap band surgery in 2010 followed by gastric sleeve in 2018. The patient states that she developed a swollen area on her right thigh while she was watching fireworks one night on August 23. Later that evening the area was sore and she had just a little red spot. Now the area is swollen to the upper thigh area along with fever and nausea and vomiting. Her last meal was about 3 days ago. She states her front thigh feels like it is on fire and going to burst. She states she has not seen her PCP. Patient presented to [facility] emergency center for evaluation. It was noted the patient had a witnessed seizure in the ER. Patient states that she felt hot and dizzy and vomiting but she does not recall a seizure. She was told she was "flopping around." Patient states that she has only had one seizure in the past and was seen by Dr. Galeano and did not require any medications. Patient was febrile with temperature 102.5, tachycardic at initially 121 E. per minute, respiratory rate 28, blood pressure 147/77, pulse ox 99% on room air. WBC 15.5, hemoglobin 11.1, platelet count 514. INR 1.0. CO2 19 otherwise electrolytes normal. BUN 9, creatinine 0.6. Lactic acid 1.8. Blood sugar 94. Albumin 4.2. Liver function tests were normal. Urinalysis clear with blood large, RBCs greater than 182, WBC 6. Coronavirus PCR not detected. She has been started on Zosyn and vancomycin, consult in place with general surgery and infectious disease. 08/30: Patient has been seen by Dr. Deutsch and is scheduled for a bedside I&D today. Patient is continued on Zosyn and vancomycin. Patient continues to complain of significant pain to the area. Noted she had a drop in her hemoglobin 8.5 and she states she is on her monthly period. WBC 8.0, platelet count 406. Sodium 139, potassium 3.6, chloride 110, CO2 25, creatinine 0.5. Blood cultures showing no growth at 24 hours. 08/31: Patient underwent I&D yesterday with removal 10-15 mL of pus from the left thigh abscess. Patient states that she is feeling so much better today. She is only on Toradol and Bayonne for pain. She states the pain is significantly improved. She denies any nausea which is resolved. Patient is continued on vancomycin and wound culture is in progress. She's been afebrile, heart rate 63, blood pressure 116/72 and pulse ox 98% on room air. Anticipate probable home tomorrow once wound culture has been finalized. EEG was normal. 09/01: Patient has been afebrile, heart rate 67, blood pressure 125/80, pulse ox 98% on room air. Patient has had significant improvement of the right thigh swelling and erythema. Patient has been on vancomycin and followed closely by Dr. Silva. Patient is tolerating regular diet without nausea. Pain is controlled and patient is not requiring pain medications. Wound cultures positive for MRSA. Dr. Silva has recommended course of Bactrim. Patient will be discharged home today in stable condition. ASSESSMENT AND PLAN 1. Sepsis secondary to right thigh abscess. 2. Possible seizure activity while in the emergency center. 3. History of gastric reflux 4. Anemia secondary to acute blood loss from menses. 5. History of morbid obesity status post bariatric surgery. DISCHARGE PLAN Home Impression and plan of care have been directed as dictated by the signing physician. Raqeul Andujar nurse practitioner acting as scribe for signing physician. Patient Condition at Discharge: Good Plan - Discharge Summary Discharge Rx Participant: No New Discharge Prescriptions: New Sulfamethox-Tmp 800-160Mg [Bactrim DS 800-160 mg] 1 tab PO Q12HR #14 tab Continue HYDROcodone/APAP 5-325MG [Bayonne 5-325] 1 tab PO BID PRN PRN Reason: Pain Discharge Medication List HYDROcodone/APAP 5-325MG [Bayonne 5-325] 1 tab PO BID PRN 08/28/20 [History] Sulfamethox-Tmp 800-160Mg [Bactrim DS 800-160 mg] 1 tab PO Q12HR #14 tab 09/01/20 [Rx] Follow up Appointment(s)/Referral(s): Morgan Rea MD [Primary Care Provider] - 1 Week Melisas Deutsch DO [Doctor of Osteopathic Medicine] - 1 Week Discharge Disposition: HOME SELF-CARE
== END 2020-09-01 14:40 | disposition home or self-care (01) | DRG 872 ==
LOC: EC 17:45 → 6PED 20:09 → OBSVTOIN 08-30 12:51
PROVIDERS: ADMIT Internal Medicine; ATTEND Internal Medicine
PROC: 0Y9C0ZZ Drainage of Right Upper Leg, Open Approach (ICD-10-PCS; principal; 2020-08-30)
DX: A41.01 Sepsis due to Methicillin susceptible Staphylococcus aureus (principal); L03.115 Cellulitis of right lower limb; L02.415 Cutaneous abscess of right lower limb; D62 Acute posthemorrhagic anemia; H57.11 Ocular pain, right eye; Z20.822 Contact with and (suspected) exposure to COVID-19; K21.9 Gastro-esophageal reflux disease without esophagitis; G40.909 Epilepsy, unspecified, not intractable, without status epilepticus; G43.909 Migraine, unspecified, not intractable, without status migrainosus; Z98.84 Bariatric surgery status; F32.9 Major depressive disorder, single episode, unspecified; Z80.3 Family history of malignant neoplasm of breast; F41.9 Anxiety disorder, unspecified; Z82.49 Family history of ischemic heart disease and other diseases of the circulatory system
CPT/HCPCS: 36415; 71046; 80048; 80053; 80202; 81001; 82565; 83605; 85025; 85027; 85610; 85730; 87040; 87070; 87075; 87077; 87186; 87205; 87635; 93005; 94760; 95816; 96361; 96365; 96375; 99285

== ENCOUNTER 2021-08-03 17:55 | Emergency (ER) | payer BC, OTHER ==
[2021-08-03 18:18] VITALS: RESP 18
[2021-08-03] MEDS ORDERED: ACETAMINOPHEN TAB 500 MG TAB PO STA (18:18)
[2021-08-03] MEDS ORDERED: SODIUM CHLORIDE 0.9% 1,000 ML IV STA ×2 (23:09)
--- NOTE | 2021-08-03 23:10 | ED ---
Fever HPI - General Chief Complaint: Urogenital Stated Complaint: UTI, abd pain Time Seen by Provider: 08/03/21 23:08 Source: patient, RN notes reviewed, old records reviewed Mode of arrival: ambulatory Limitations: no limitations - History of Present Illness Initial Comments: This is a 45-year-old female to the emergency department for evaluation, patient presents with fever and abdominal pain. Nausea no vomiting. No history of same. Patient was transferred for evaluation regarding likely urinary tract infection as she has have fever and some dysuria. No other complaints no cough no congestion or shortness of breath MD Complaint: fever -: hour(s) Temperature Source: subjective Context: recent antibiotic use Associated Symptoms: abdominal pain, nausea, dysuria Treatments Prior to Arrival: none - Related Data Home Medications Medication Instructions Recorded Confirmed HYDROcodone/APAP 5-325MG [Embudo 1 tab PO BID PRN 08/28/20 08/28/20 5-325] Previous Rx's Medication Instructions Recorded Sulfamethox-Tmp 800-160Mg [Bactrim 1 tab PO Q12HR #14 tab 09/01/20 DS 800-160 mg] Sulfamethox-Tmp 800-160Mg [Bactrim 1 tab PO Q12HR #14 tab 08/04/21 DS 800-160 mg] Allergies Allergy/AdvReac Type Severity Reaction Status Date / Time aspirin Allergy Unknown Verified 08/28/20 22:02 ibuprofen [From Motrin] Allergy Unknown Verified 08/28/20 22:02 Review of Systems ROS Statement: Those systems with pertinent positive or pertinent negative responses have been documented in the HPI. ROS Other: All systems not noted in ROS Statement are negative. Past Medical History Past Medical History: GERD/Reflux, Seizure Disorder Additional Past Medical History / Comment(s): Hx of migraines, elevated HR, one seizure/unknown cause 2017; "Severe refux, awakening in noc w/ choking since gastric sleeve surgery." History of Any Multi-Drug Resistant Organisms: MRSA Date of last positivie culture/infection: 08/30/20 MDRO Source:: Right Thigh Past Surgical History: Bariatric Surgery, Cholecystectomy, Orthopedic Surgery Additional Past Surgical History / Comment(s): lap band 2009, gastic sleeve 04/03; EGD; IVF; metatarsus abduction/age 6; Past Anesthesia/Blood Transfusion Reactions: Motion Sickness, Postoperative Nausea & Vomiting (PONV) Additional Past Anesthesia/Blood Transfusion Reaction / Comment(s): no hx of blood transfusion Past Psychological History: Anxiety, Depression Smoking Status: Never smoker Past Alcohol Use History: None Reported Past Drug Use History: Marijuana - Past Family History Mother Family Medical History: Cancer, Hypertension Additional Family Medical History / Comment(s): Breast CA Brother(s) Family Medical History: No Reported History Father History Unknown: Yes Additional Family Medical History / Comment(s): father of suicide . General Exam Limitations: no limitations General appearance: alert, in no apparent distress Head exam: Present: atraumatic, normocephalic, normal inspection Eye exam: Present: normal appearance, PERRL, EOMI. Absent: scleral icterus, conjunctival injection, periorbital swelling ENT exam: Present: normal exam, mucous membranes dry Neck exam: Present: normal inspection. Absent: tenderness, meningismus, lymphadenopathy Respiratory exam: Present: normal lung sounds bilaterally. Absent: respiratory distress, wheezes, rales, rhonchi, stridor Cardiovascular Exam: Present: normal rhythm, tachycardia, normal heart sounds. Absent: systolic murmur, diastolic murmur, rubs, gallop, clicks GI/Abdominal exam: Present: soft, normal bowel sounds. Absent: distended, tenderness, guarding, rebound, rigid Extremities exam: Present: normal inspection, full ROM, normal capillary refill. Absent: tenderness, pedal edema, joint swelling, calf tenderness Back exam: Present: normal inspection Neurological exam: Present: alert, oriented X3, CN II-XII intact Psychiatric exam: Present: normal affect, normal mood Skin exam: Present: warm, dry, intact, normal color. Absent: rash Course Vital Signs 08/03/21 08/04/21 08/04/21 18:16 00:18 04:43 Temperature 102.8 F H 99.9 F H Pulse Rate 103 H 80 80 Respiratory 18 18 18 Rate Blood Pressure 124/68 112/58 108/57 O2 Sat by Pulse 98 100 98 Oximetry - Reevaluation(s) Reevaluation #1: 08/03/21 Medical records reviewed Reevaluation #2: 08/03/21 Patient symptoms are significant improving Reevaluation #3: 08/03/21 Patient informed results questions answered Medical Decision Making - Medical Decision Making 45 female to the emergency department for evaluation of fever nausea vomiting finding of urinary tract infection. Patient will place on IV antibiotics and will control oral intake currently CT otherwise negative and patient can be discharged home - Lab Data Result diagrams: 08/04/21 01:32 08/04/21 01:32 Lab Results 08/04/21 08/04/21 08/04/21 Range/Units 00:37 00:37 01:32 WBC 3.8 (3.8-10.6) k/uL RBC 3.63 L (3.80-5.40) m/uL Hgb 7.6 L (11.4-16.0) gm/dL Hct 26.2 L (34.0-46.0) % MCV 72.2 L (80.0-100.0) fL MCH 21.0 L (25.0-35.0) pg MCHC 29.1 L (31.0-37.0) g/dL RDW 15.7 H (11.5-15.5) % Plt Count 301 (150-450) k/uL MPV 6.5 Neutrophils % 66 % Lymphocytes % 24 % Monocytes % 6 % Eosinophils % 0 % Basophils % 1 % Neutrophils # 2.5 (1.3-7.7) k/uL Lymphocytes # 0.9 L (1.0-4.8) k/uL Monocytes # 0.2 (0-1.0) k/uL Eosinophils # 0.0 (0-0.7) k/uL Basophils # 0.0 (0-0.2) k/uL Hypochromasia Marked Microcytosis Moderate PT (9.0-12.0) sec INR (<1.2) APTT (22.0-30.0) sec Sodium (137-145) mmol/L Potassium (3.5-5.1) mmol/L Chloride (98-107) mmol/L Carbon Dioxide (22-30) mmol/L Anion Gap mmol/L BUN (7-17) mg/dL Creatinine (0.52-1.04) mg/dL Est GFR (CKD-EPI)AfAm (>60 ml/min/1.73 sqM) Est GFR (CKD-EPI)NonAf (>60 ml/min/1.73 sqM) Glucose (74-99) mg/dL Plasma Lactic Acid Prosper (0.7-2.0) mmol/L Calcium (8.4-10.2) mg/dL Phosphorus (2.5-4.5) mg/dL Magnesium (1.6-2.3) mg/dL Total Bilirubin (0.2-1.3) mg/dL AST (14-36) U/L ALT (4-34) U/L Alkaline Phosphatase (38-126) U/L Troponin I (0.000-0.034) ng/mL NT-Pro-B Natriuret Pep pg/mL Total Protein (6.3-8.2) g/dL Albumin (3.5-5.0) g/dL Urine Color Yellow Urine Appearance Cloudy H (Clear) Urine pH 6.0 (5.0-8.0) Ur Specific Roy 1.014 (1.001-1.035) Urine Protein 1+ H (Negative) Urine Glucose (UA) Negative (Negative) Urine Ketones Negative (Negative) Urine Blood Negative (Negative) Urine Nitrite Negative (Negative) Urine Bilirubin Negative (Negative) Urine Urobilinogen <2.0 (<2.0) mg/dL Ur Leukocyte Esterase Moderate H (Negative) Urine RBC 4 (0-5) /hpf Urine WBC 18 H (0-5) /hpf Ur Squamous Epith Cells 2 (0-4) /hpf Urine Mucus Occasional H (None) /hpf Chlamydia Source Urine Chlamydia DNA (PCR) Negative (Neg,Equiv) N. gonorrhoeae Source Urine N.gonorrhoeae DNA Probe Negative (Neg,Equiv) 08/04/21 08/04/21 08/04/21 Range/Units 01:32 01:32 01:32 WBC (3.8-10.6) k/uL RBC (3.80-5.40) m/uL Hgb (11.4-16.0) gm/dL Hct (34.0-46.0) % MCV (80.0-100.0) fL MCH (25.0-35.0) pg MCHC (31.0-37.0) g/dL RDW (11.5-15.5) % Plt Count (150-450) k/uL MPV Neutrophils % % Lymphocytes % % Monocytes % % Eosinophils % % Basophils % % Neutrophils # (1.3-7.7) k/uL Lymphocytes # (1.0-4.8) k/uL Monocytes # (0-1.0) k/uL Eosinophils # (0-0.7) k/uL Basophils # (0-0.2) k/uL Hypochromasia Microcytosis PT 10.1 (9.0-12.0) sec INR 0.9 (<1.2) APTT 25.4 (22.0-30.0) sec Sodium 135 L (137-145) mmol/L Potassium 3.4 L (3.5-5.1) mmol/L Chloride 103 (98-107) mmol/L Carbon Dioxide 23 (22-30) mmol/L Anion Gap 9 mmol/L BUN 8 (7-17) mg/dL Creatinine 0.69 (0.52-1.04) mg/dL Est GFR (CKD-EPI)AfAm >90 (>60 ml/min/1.73 sqM) Est GFR (CKD-EPI)NonAf >90 (>60 ml/min/1.73 sqM) Glucose 86 (74-99) mg/dL Plasma Lactic Acid Prosper 1.1 (0.7-2.0) mmol/L Calcium 8.2 L (8.4-10.2) mg/dL Phosphorus 3.5 (2.5-4.5) mg/dL Magnesium 1.7 (1.6-2.3) mg/dL Total Bilirubin <0.1 L (0.2-1.3) mg/dL AST 35 (14-36) U/L ALT 26 (4-34) U/L Alkaline Phosphatase 64 (38-126) U/L Troponin I (0.000-0.034) ng/mL NT-Pro-B Natriuret Pep pg/mL Total Protein 6.5 (6.3-8.2) g/dL Albumin 3.8 (3.5-5.0) g/dL Urine Color Urine Appearance (Clear) Urine pH (5.0-8.0) Ur Specific Roy (1.001-1.035) Urine Protein (Negative) Urine Glucose (UA) (Negative) Urine Ketones (Negative) Urine Blood (Negative) Urine Nitrite (Negative) Urine Bilirubin (Negative) Urine Urobilinogen (<2.0) mg/dL Ur Leukocyte Esterase (Negative) Urine RBC (0-5) /hpf Urine WBC (0-5) /hpf Ur Squamous Epith Cells (0-4) /hpf Urine Mucus (None) /hpf Chlamydia Source Chlamydia DNA (PCR) (Neg,Equiv) N. gonorrhoeae Source N.gonorrhoeae DNA Probe (Neg,Equiv) 08/04/21 08/04/21 Range/Units 01:32 01:32 WBC (3.8-10.6) k/uL RBC (3.80-5.40) m/uL Hgb (11.4-16.0) gm/dL Hct (34.0-46.0) % MCV (80.0-100.0) fL MCH (25.0-35.0) pg MCHC (31.0-37.0) g/dL RDW (11.5-15.5) % Plt Count (150-450) k/uL MPV Neutrophils % % Lymphocytes % % Monocytes % % Eosinophils % % Basophils % % Neutrophils # (1.3-7.7) k/uL Lymphocytes # (1.0-4.8) k/uL Monocytes # (0-1.0) k/uL Eosinophils # (0-0.7) k/uL Basophils # (0-0.2) k/uL Hypochromasia Microcytosis PT (9.0-12.0) sec INR (<1.2) APTT (22.0-30.0) sec Sodium (137-145) mmol/L Potassium (3.5-5.1) mmol/L Chloride (98-107) mmol/L Carbon Dioxide (22-30) mmol/L Anion Gap mmol/L BUN (7-17) mg/dL Creatinine (0.52-1.04) mg/dL Est GFR (CKD-EPI)AfAm (>60 ml/min/1.73 sqM) Est GFR (CKD-EPI)NonAf (>60 ml/min/1.73 sqM) Glucose (74-99) mg/dL Plasma Lactic Acid Prosper (0.7-2.0) mmol/L Calcium (8.4-10.2) mg/dL Phosphorus (2.5-4.5) mg/dL Magnesium (1.6-2.3) mg/dL Total Bilirubin (0.2-1.3) mg/dL AST (14-36) U/L ALT (4-34) U/L Alkaline Phosphatase (38-126) U/L Troponin I <0.012 (0.000-0.034) ng/mL NT-Pro-B Natriuret Pep 85 pg/mL Total Protein (6.3-8.2) g/dL Albumin (3.5-5.0) g/dL Urine Color Urine Appearance (Clear) Urine pH (5.0-8.0) Ur Specific Roy (1.001-1.035) Urine Protein (Negative) Urine Glucose (UA) (Negative) Urine Ketones (Negative) Urine Blood (Negative) Urine Nitrite (Negative) Urine Bilirubin (Negative) Urine Urobilinogen (<2.0) mg/dL Ur Leukocyte Esterase (Negative) Urine RBC (0-5) /hpf Urine WBC (0-5) /hpf Ur Squamous Epith Cells (0-4) /hpf Urine Mucus (None) /hpf Chlamydia Source Chlamydia DNA (PCR) (Neg,Equiv) N. gonorrhoeae Source N.gonorrhoeae DNA Probe (Neg,Equiv) - EKG Data -: EKG Interpreted by Me (EKG sinus rhythm 76 ME 103 QRS 78 QTc is 385) EKG shows normal: sinus rhythm (EKG is sinus rhythm 73 ME 131QRS 86 QTC 390) - Radiology Data Radiology results: report reviewed (CT abdomen and pelvis positive for ovarian cyst), image reviewed Disposition Clinical Impression: Urinary tract infection, Abdominal pain, Simple ovarian cyst, Ovarian cyst, Fever Disposition: HOME SELF-CARE Condition: Good Instructions (If sedation given, give patient instructions): Ovarian Cyst (ED), Urinary Tract Infection in Women (ED) Prescriptions: Sulfamethox-Tmp 800-160Mg [Bactrim DS 800-160 mg] 1 tab PO Q12HR #14 tab Is patient prescribed a controlled substance at d/c from ED?: No Referrals: Namita Fiore DO [Doctor of Osteopathic Medicine] - 1-2 days
[2021-08-03] MEDS ORDERED: MORPHINE SULFATE 4 MG/ML SYRINGE IVP STA (23:13)
[2021-08-04 01:12] VITALS: PULSE 80; TEMP 99.9
[2021-08-04] MEDS ORDERED: ONDANSETRON 4 MG/2 ML VIAL IVP STA (01:29)
[2021-08-04 01:41] LABS: Appearance,Urine Cloudy (Clear); Bilirubin,Urine Negative (Negative); Blood,Urine Negative (Negative); Color,Urine Yellow; Glucose,Urine (UA) Negative (Negative); Ketones,Urine Negative (Negative); Leukocyte Esterase,Urine Moderate (Negative); Mucus,Urine Occasional /hpf; Nitrite,Urine Negative (Negative); Protein,Urine 1+ (Negative); RBC,Urine 4 /hpf (0-5); Specific Gravity,Urine 1.014 (1.001-1.035); Squamous Epithelial Cell,Urine 2 /hpf (0-4); Urobilinogen,Urine <2.0 mg/dL (<2.0); WBC,Urine 18 /hpf (0-5)
[2021-08-04 01:58] LABS: Basophils % (A) 1 %; Eosinophils % (A) 0 %; HCT 26.2 % (34.0-46.0); HGB 7.6 gm/dL (11.4-16.0); Hypochromasia Marked; Lymphocytes # (A) 0.9 k/uL (1.0-4.8); Lymphocytes % (A) 24 %; MCHC 29.1 g/dL (31.0-37.0); MCV 72.2 fL (80.0-100.0); Mean Platelet Volume 6.5; Microcytosis Moderate; Monocytes # (A) 0.2 k/uL (0-1.0); Monocytes % (A) 6 %; Neutrophils # (A) 2.5 k/uL (1.3-7.7); Neutrophils % (A) 66 %; Platelet Count 301 k/uL (150-450); RBC 3.63 m/uL (3.80-5.40); RDW 15.7 % (11.5-15.5); WBC 3.8 k/uL (3.8-10.6)
[2021-08-04 02:13] LABS: ALT 26 U/L (4-34); AST 35 U/L (14-36); African American GFR (CKD) >90 (>60 ml/min/1.73 sqM); Albumin 3.8 g/dL (3.5-5.0); Alkaline Phosphatase 64 U/L (38-126); Anion Gap 9 mmol/L; Blood Urea Nitrogen 8 mg/dL (7-17); Calcium 8.2 mg/dL (8.4-10.2); Carbon Dioxide 23 mmol/L (22-30); Chloride 103 mmol/L (98-107); Glucose 86 mg/dL (74-99); Magnesium 1.7 mg/dL (1.6-2.3); Non-African American GFR(CKD) >90 (>60 ml/min/1.73 sqM); Phosphorus 3.5 mg/dL (2.5-4.5); Potassium 3.4 mmol/L (3.5-5.1); Sodium 135 mmol/L (137-145); Total Bilirubin <0.1 mg/dL (0.2-1.3); Total Protein 6.5 g/dL (6.3-8.2)
[2021-08-04 02:21] LABS: INR 0.9 (<1.2); Partial Thromboplastin Time 25.4 sec (22.0-30.0); Prothrombin Time 10.1 sec (9.0-12.0)
[2021-08-04] MEDS ORDERED: HYDROmorphone 1 MG/ML 1 ML SYRINGE IVP STA ×2 (02:27→04:42)
[2021-08-04] MEDS ORDERED: POTASSIUM BICARBONATE/CIT AC 20 MEQ TABLET.EFF PO ONE (02:30)
[2021-08-04] MEDS ORDERED: PHENAZOPYRIDINE 200 MG TAB PO ONE (03:00)
--- NOTE | 2021-08-04 04:09 | CT ---
EXAM: CT Abdomen and Pelvis Without Intravenous Contrast CLINICAL HISTORY: ITS.REASON CT Reason: pain TECHNIQUE: Axial computed tomography images of the abdomen and pelvis without intravenous contrast. CTDI is 10.270 mGy and DLP is 588.9 mGy-cm. This CT exam was performed using one or more of the following dose reduction techniques: automated exposure control, adjustment of the mA and/or kV according to patient size, and/or use of iterative reconstruction technique. COMPARISON: None. FINDINGS: Lung bases: Clear. Moderate hiatal hernia with distal esophageal wall thickening, nonspecific, cannot rule out esophagitis. Liver: Unremarkable. Gallbladder and bile ducts: Cholecystectomy. No ductal dilation. Pancreas: No ductal dilation. Spleen: Unremarkable. Adrenals: Unremarkable. No mass. Kidneys and ureters: Nonobstructing 1 mm stone right upper pole. Probable bilateral lower pole renal cysts, though these are not fully evaluated. Consider ultrasound confirmation if these are new findings. No hydronephrosis. Stomach and bowel: Moderate to severe fecal loading of the colon with a few scattered fluid levels are nonspecific, cannot rule out mild gastroenteritis or ileus. No obstruction. No diverticulosis or diverticulitis. Appendix: Normal. Intraperitoneal space: No free air or fluid. Bones/joints: No acute fracture. Soft tissues: 1.8 x 0.7 x 1.8 cm soft tissue density in the deep subcutaneous fat anterior abdominal wall near the rectus muscle, nonspecific, nonaggressive. Vasculature: No abdominal aortic aneurysm. Lymph nodes: No enlarged lymph nodes. Bladder: No stones. Reproductive: Somewhat bulbous fundus, fairly homogeneous density of the uterus, no discrete mass. Findings are nonspecific, cannot rule out myomatous change or adenomyosis. Right ovarian cyst measures 2.5 x 5 x 5. 5 cm. Consider pelvic ultrasound as indicated for further evaluation. IMPRESSION: 1. 5.5 cm right ovarian cyst. Bulbous, prominent appearance of the uterus, consider pelvic ultrasound as indicated for further evaluation. 2. Normal appendix. 3. Nonobstructing right renal stone and probable bilateral lower pole renal cysts, though they are not fully evaluated. Consider ultrasound confirmation if this is a new finding. 4. Distal esophageal wall thickening and hiatal hernia, nonspecific, cannot rule out esophagitis. 5. Nonspecific nodule in the anterior subcutaneous fat left upper quadrant, no surrounding edema or aggressive feature. 6. Question mild gastroenteritis or ileus versus physiologic appearance of the small bowel.
[2021-08-04] MEDS ORDERED: ACET/COD 300 MG/30 MG STARTER PACK 6 TAB BTL PO STA (04:26)
[2021-08-04] MEDS ORDERED: ONDANSETRON 4 MG ODT STARTER PACK 2 TAB BTL PO STA (04:26)
[2021-08-04] MEDS ORDERED: SULFAMETH-TMP DS STARTER PACK 2 TAB BTL PO STA (04:26)
[2021-08-04 04:43] VITALS: BP 108/57
[2021-08-05 17:16] LABS: C. trachomatis,PCR Negative (Neg,Equiv); Chlamydia trachomatis Source Urine; N. gonorrhoeae,PCR Negative (Neg,Equiv); Neisseria Source Urine
== END 2021-08-04 04:57 | disposition home or self-care (01) ==
LOC: EC 17:55
DX: N39.0 Urinary tract infection, site not specified (principal); N83.201 Unspecified ovarian cyst, right side; F12.90 Cannabis use, unspecified, uncomplicated
CPT/HCPCS: 36415; 93005; 83880; 80053; 83605; 83735; 84100; 84484; 85025; 85610; 85730; 81001; 87040; 87491; 87591; 87086; 74176; 99284; 96365; 96375 ×3; 96376; 96361 ×2; J2270; J2405; J0696; J1170; S0119

== ENCOUNTER 2022-07-26 02:53 | Emergency (ER) | payer OTHER, BC ==
[2022-07-26 03:01] VITALS: TEMP 98
[2022-07-26 03:05] LABS: Anisocytosis Slight; Basophils % (A) 0 %; Eosinophils # (A) 0.1 k/uL (0-0.7); Eosinophils % (A) 1 %; HCT 33.9 % (34.0-46.0); HGB 10.1 gm/dL (11.4-16.0); Hypochromasia Marked; Lymphocytes # (A) 2.8 k/uL (1.0-4.8); Lymphocytes % (A) 45 %; MCH 24.8 pg (25.0-35.0); MCHC 29.8 g/dL (31.0-37.0); MCV 83.3 fL (80.0-100.0); Mean Platelet Volume 6.7; Microcytosis Slight; Monocytes # (A) 0.5 k/uL (0-1.0); Monocytes % (A) 8 %; Neutrophils # (A) 2.7 k/uL (1.3-7.7); Neutrophils % (A) 43 %; Platelet Count 416 k/uL (150-450); RBC 4.07 m/uL (3.80-5.40); RDW 19.8 % (11.5-15.5); WBC 6.3 k/uL (3.8-10.6)
--- NOTE | 2022-07-26 03:22 | ED ---
General Adult HPI - General Chief complaint: Seizure Stated complaint: Seizures Time Seen by Provider: 07/26/22 02:58 Source: EMS Mode of arrival: EMS Limitations: no limitations - History of Present Illness Initial comments: This is a 46-year-old female with a reported past medical history including seizure disorder not on Keppra presents emergency department via EMS after witnessed seizure. EMS did report that the patient called 911 secondary to laura rtness of breath but when they arrived, the patient had a two-minute tonic- clonic seizure. The patient was given 5 mg of IM Versed and an IV was established. Once the IV was established, the patient had a second 32nd tonic- clonic seizure and was given 5 mg of IV Versed. It was reported by the on scene with EMS that the patient's seizures are noted to be induced by anxiety and stress and it was assumed that the patient's shortness of breath causing to be anxious leading to this seizure. It was unknown what medications the patient is on for seizures. The patient herself was on a nonrebreather on arrival however was not any acute distress and was not seizing actively. No further h istory be obtained at this time. - Related Data Allergies Allergy/AdvReac Type Severity Reaction Status Date / Time kepra Allergy Intermediate Vomiting Uncoded 07/26/22 04:08 Review of Systems ROS Statement: Those systems with pertinent positive or pertinent negative responses have been documented in the HPI. ROS Other: All systems not noted in ROS Statement are negative. General Exam Limitations: altered mental status (Lethargic 2/2 medication, post-ictal state), physical limitation General appearance: in no apparent distress, lethargic (Lethargic 2/2 medication, post-ictal state) Head exam: Present: atraumatic, normocephalic, normal inspection Eye exam: Present: normal appearance, PERRL Pupils: Present: normal accommodation ENT exam: Present: normal exam, normal oropharynx, mucous membranes moist Neck exam: Present: normal inspection, full ROM Respiratory exam: Present: normal lung sounds bilaterally Cardiovascular Exam: Present: regular rate, normal rhythm, normal heart sounds GI/Abdominal exam: Present: soft, normal bowel sounds Extremities exam: Present: normal inspection, full ROM Back exam: Present: normal inspection, full ROM Neurological exam: Present: alert, altered (Lethargic 2/2 medication, post-ictal state) Psychiatric exam: Present: normal affect, normal mood Skin exam: Present: warm, dry Course Vital Signs 07/26/22 07/26/22 07/26/22 02:55 03:12 03:25 Temperature 98.0 F Pulse Rate 94 80 80 Respiratory 18 20 20 Rate Blood Pressure 116/74 120/74 102/65 O2 Sat by Pulse 100 100 100 Oximetry 07/26/22 07/26/22 04:23 05:11 Temperature Pulse Rate 84 74 Respiratory 20 18 Rate Blood Pressure 129/78 123/82 O2 Sat by Pulse 100 98 Oximetry EKG Findings - EKG Comments: EKG Findings:: An EKG was obtained and was interpreted by myself showing a rate of 89, OK interval 153, QRS duration of 93 and QTC of 392. This EKG showed a normal sinus rhythm with no ST segment elevation or depression noted. Medical Decision Making - Medical Decision Making Was pt. sent in by a medical professional or institution (, PA, ASSEMBLER FITTER, urgent care, hospital, or assisted...) When possible be specific @ -No Did you speak to anyone other than the patient for history (EMS, parent, family, police, friend...)? What history was obtained from this source @ -Yes, patient's was at the bedside and did state that the patient is had multiple small episodes of seizures over the last several days but was just worked up at [facility] last month and did not show any signs of seizures on the EEG but was started on Vimpat for possible seizure-like activity. Did you review nursing and triage notes (agree or disagree)? Why? @ -I reviewed and agree with nursing and triage notes Were old charts reviewed (outside hosp., previous admission, EMS record, old EKG, old radiological studies, urgent care reports/EKG's, assisted records)? Report findings @ -No old charts were reviewed Differential Diagnosis (chest pain, altered mental status, abdominal pain women, abdominal pain men, vaginal bleeding, weakness, fever, dyspnea, syncope, headache, dizziness, GI bleed, back pain, seizure, CVA, palpatations, mental health)? @ -Status epilepticus, medical noncompliance, chest x-ray EKG interpreted by me (3pts min.). @ -As above X-rays interpreted by me (1pt min.). @ -Chest x-ray was obtained but the read was to pending at this time. CT interpreted by me (1pt min.). @ -None done U/S interpreted by me (1pt. min.). @ -None done What testing was considered but not performed or refused? (CT, X-rays, U/S, labs)? Why? @ -None What meds were considered but not given or refused? Why? @ -None Did you discuss the management of the patient with other professionals (professionals i.e. , PA, ASSEMBLER FITTER, lab, RT, psych nurse, social services aide, piece dyeing machine tender, teacher, hazard mitigation officer, casey saw operator)? Give summary @ -No Was smoking cessation discussed for >3mins.? @ -No Was critical care preformed (if so, how long)? @ -Yes, see above Were there social determinants of health that impacted care today? How? (Homelessness, low income, unemployed, alcoholism, drug addiction, transportation, low edu. Level, literacy, decrease access to med. care, senior living, rehab)? @ -No Was there de-escalation of care discussed even if they declined (Discuss DNR or withdrawal of care, Hospice)? DNR status @ -No What co-morbidities impacted this encounter? (DM, HTN, Smoking, COPD, CAD, Cancer, CVA, ARF, Chemo, Hep., AIDS, mental health diagnosis, sleep apnea, morbid obesity)? @ -Seizure disorder Was patient admitted / discharged? Hospital course, mention meds given and route, prescriptions, significant lab abnormalities, going to OR and other pertinent info. @ -The patient was seen and evaluated emergency department. Physical exam, the patient was resting in bed without any acute distress. The patient had been given a total of 10 mg of Versed both IV and IM. The patient was able to tolerate her own secretions and had normal pulse ox while off of the nonrebreather. Laboratory workup was obtained and was largely within normal limits however the lactic acid mildly elevated at 2.6. The patient did receive fluids. The patient's was present at the bedside and did state that she has had seizure-like activity similar to today over the last several days to months. The patient had an EEG performed last month at [facility] and she was post follow-up with her neurologist on Tuesday. The patient remained stable and did not require any further antiseizure medications at this time. The patient is on the pad and has been taking her medications as prescribed. The patient and her were told that everything was within normal limits and negative here but that she could be observed to be seen by neurology today in the hospital. The patient herself stated that she did not want to stay in the hospital but instead wanted be discharged home to follow-up with her neurologist as previously scheduled on Tuesday. The patient was able to emulate throughout the emergency department without any acute assistance. The patient was understanding that if she had more seizures to come back to the emergency department. The patient and her were agreeable to this and patient was discharged home in stable condition. Undiagnosed new problem with uncertain prognosis? @ -No Drug Therapy requiring intensive monitoring for toxicity (Heparin, Nitro, Insulin, Cardizem)? @ -No Were any procedures done? @ -No Diagnosis/symptom? @ -Seizure Acute, or Chronic, or Acute on Chronic? @ -Acute on chronic Uncomplicated (without systemic symptoms) or Complicated (systemic symptoms)? @ -Uncomplicated Side effects of treatment? @ -No Exacerbation, Progression, or Severe Exacerbation? @ -No Poses a threat to life or bodily function? How? (Chest pain, USA, MA, pneumonia, PE, COPD, DKA, ARF, appy, cholecystitis, CVA, Diverticulitis, Homicidal, Suicidal, threat to staff... and all critical care pts) @ -No - Lab Data Result diagrams: 07/26/22 02:56 07/26/22 02:56 Lab Results 07/26/22 07/26/22 07/26/22 Range/Units 02:56 02:56 02:56 WBC 6.3 (3.8-10.6) k/uL RBC 4.07 (3.80-5.40) m/uL Hgb 10.1 L (11.4-16.0) gm/dL Hct 33.9 L (34.0-46.0) % MCV 83.3 (80.0-100.0) fL MCH 24.8 L (25.0-35.0) pg MCHC 29.8 L (31.0-37.0) g/dL RDW 19.8 H (11.5-15.5) % Plt Count 416 (150-450) k/uL MPV 6.7 Neutrophils % 43 % Lymphocytes % 45 % Monocytes % 8 % Eosinophils % 1 % Basophils % 0 % Neutrophils # 2.7 (1.3-7.7) k/uL Lymphocytes # 2.8 (1.0-4.8) k/uL Monocytes # 0.5 (0-1.0) k/uL Eosinophils # 0.1 (0-0.7) k/uL Basophils # 0.0 (0-0.2) k/uL Hypochromasia Marked Anisocytosis Slight Microcytosis Slight PT 10.3 (9.0-12.0) sec INR 1.0 (<1.2) APTT 22.0 (22.0-30.0) sec D-Dimer 0.24 (<0.60) mg/L FEU Sodium 137 (137-145) mmol/L Potassium 3.9 (3.5-5.1) mmol/L Chloride 105 (98-107) mmol/L Carbon Dioxide 24 (22-30) mmol/L Anion Gap 8 mmol/L BUN 12 (7-17) mg/dL Creatinine 0.54 (0.52-1.04) mg/dL Est GFR (CKD-EPI)AfAm >90 (>60 ml/min/1.73 sqM) Est GFR (CKD-EPI)NonAf >90 (>60 ml/min/1.73 sqM) Glucose 75 (74-99) mg/dL Lactic Ac Sepsis Rflx Plasma Lactic Acid Prosper (0.7-2.0) mmol/L Calcium 8.5 (8.4-10.2) mg/dL Magnesium 1.7 (1.6-2.3) mg/dL Total Bilirubin 0.3 (0.2-1.3) mg/dL AST 31 (14-36) U/L ALT 18 (4-34) U/L Alkaline Phosphatase 51 (38-126) U/L Troponin I (0.000-0.034) ng/mL NT-Pro-B Natriuret Pep pg/mL Total Protein 6.3 (6.3-8.2) g/dL Albumin 3.7 (3.5-5.0) g/dL Lipase 337 H (23-300) U/L Urine Color Urine Appearance (Clear) Urine pH (5.0-8.0) Ur Specific [place] (1.001-1.035) Urine Protein (Negative) Urine Glucose (UA) (Negative) Urine Ketones (Negative) Urine Blood (Negative) Urine Nitrite (Negative) Urine Bilirubin (Negative) Urine Urobilinogen (<2.0) mg/dL Ur Leukocyte Esterase (Negative) Serum Alcohol <10 mg/dL 07/26/22 07/26/22 07/26/22 Range/Units 02:56 02:56 02:56 WBC (3.8-10.6) k/uL RBC (3.80-5.40) m/uL Hgb (11.4-16.0) gm/dL Hct (34.0-46.0) % MCV (80.0-100.0) fL MCH (25.0-35.0) pg MCHC (31.0-37.0) g/dL RDW (11.5-15.5) % Plt Count (150-450) k/uL MPV Neutrophils % % Lymphocytes % % Monocytes % % Eosinophils % % Basophils % % Neutrophils # (1.3-7.7) k/uL Lymphocytes # (1.0-4.8) k/uL Monocytes # (0-1.0) k/uL Eosinophils # (0-0.7) k/uL Basophils # (0-0.2) k/uL Hypochromasia Anisocytosis Microcytosis PT (9.0-12.0) sec INR (<1.2) APTT (22.0-30.0) sec D-Dimer (<0.60) mg/L FEU Sodium (137-145) mmol/L Potassium (3.5-5.1) mmol/L Chloride (98-107) mmol/L Carbon Dioxide (22-30) mmol/L Anion Gap mmol/L BUN (7-17) mg/dL Creatinine (0.52-1.04) mg/dL Est GFR (CKD-EPI)AfAm (>60 ml/min/1.73 sqM) Est GFR (CKD-EPI)NonAf (>60 ml/min/1.73 sqM) Glucose (74-99) mg/dL Lactic Ac Sepsis Rflx Plasma Lactic Acid Pros[place] (0.7-2.0) mmol/L Calcium (8.4-10.2) mg/dL Magnesium (1.6-2.3) mg/dL Total Bilirubin (0.2-1.3) mg/dL AST (14-36) U/L ALT (4-34) U/L Alkaline Phosphatase (38-126) U/L Troponin I <0.012 (0.000-0.034) ng/mL NT-Pro-B Natriuret Pep 87 pg/mL Total Protein (6.3-8.2) g/dL Albumin (3.5-5.0) g/dL Lipase (23-300) U/L Urine Color Yellow Urine Appearance Clear (Clear) Urine pH 5.5 (5.0-8.0) Ur Specific [place] 1.021 (1.001-1.035) Urine Protein Negative (Negative) Urine Glucose (UA) Negative (Negative) Urine Ketones Negative (Negative) Urine Blood Negative (Negative) Urine Nitrite Negative (Negative) Urine Bilirubin Negative (Negative) Urine Urobilinogen <2.0 (<2.0) mg/dL Ur Leukocyte Esterase Negative (Negative) Serum Alcohol mg/dL 07/26/22 07/26/22 Range/Units 02:56 04:39 WBC (3.8-10.6) k/uL RBC (3.80-5.40) m/uL Hgb (11.4-16.0) gm/dL Hct (34.0-46.0) % MCV (80.0-100.0) fL MCH (25.0-35.0) pg MCHC (31.0-37.0) g/dL RDW (11.5-15.5) % Plt Count (150-450) k/uL MPV Neutrophils % % Lymphocytes % % Monocytes % % Eosinophils % % Basophils % % Neutrophils # (1.3-7.7) k/uL Lymphocytes # (1.0-4.8) k/uL Monocytes # (0-1.0) k/uL Eosinophils # (0-0.7) k/uL Basophils # (0-0.2) k/uL Hypochromasia Anisocytosis Microcytosis PT (9.0-12.0) sec INR (<1.2) APTT (22.0-30.0) sec D-Dimer (<0.60) mg/L FEU Sodium (137-145) mmol/L Potassium (3.5-5.1) mmol/L Chloride (98-107) mmol/L Carbon Dioxide (22-30) mmol/L Anion Gap mmol/L BUN (7-17) mg/dL Creatinine (0.52-1.04) mg/dL Est GFR (CKD-EPI)AfAm (>60 ml/min/1.73 sqM) Est GFR (CKD-EPI)NonAf (>60 ml/min/1.73 sqM) Glucose (74-99) mg/dL Lactic Ac Sepsis Rflx Y Plasma Lactic Acid [place] 2.6 H* (0.7-2.0) mmol/L Calcium (8.4-10.2) mg/dL Magnesium (1.6-2.3) mg/dL Total Bilirubin (0.2-1.3) mg/dL AST (14-36) U/L ALT (4-34) U/L Alkaline Phosphatase (38-126) U/L Troponin I (0.000-0.034) ng/mL NT-Pro-B Natriuret Pep pg/mL Total Protein (6.3-8.2) g/dL Albumin (3.5-5.0) g/dL Lipase (23-300) U/L Urine Color Urine Appearance (Clear) Urine pH (5.0-8.0) Ur Specific [place] (1.001-1.035) Urine Protein (Negative) Urine Glucose (UA) (Negative) Urine Ketones (Negative) Urine Blood (Negative) Urine Nitrite (Negative) Urine Bilirubin (Negative) Urine Urobilinogen (<2.0) mg/dL Ur Leukocyte Esterase (Negative) Serum Alcohol mg/dL Critical Care Time Critical Care Time: Yes Total Critical Care Time: 32 Disposition Clinical Impression: Seizure disorder Disposition: HOME SELF-CARE Condition: Stable Instructions (If sedation given, give patient instructions): Recurrent Seizures in Adults (ED) Is patient prescribed a controlled substance at d/c from ED?: No Referrals: None,Stated [REFERRING] - 1-2 days Brant Galeano MD [Primary Care Provider] - 07/28/22 Time of Disposition: 05:00
[2022-07-26 03:36] LABS: ALT 18 U/L (4-34); African American GFR (CKD) >90 (>60 ml/min/1.73 sqM); Albumin 3.7 g/dL (3.5-5.0); Alcohol <10 mg/dL; Anion Gap 8 mmol/L; Blood Urea Nitrogen 12 mg/dL (7-17); Calcium 8.5 mg/dL (8.4-10.2); Carbon Dioxide 24 mmol/L (22-30); Chloride 105 mmol/L (98-107); Glucose 75 mg/dL (74-99); Lipase 337 U/L (23-300); Non-African American GFR(CKD) >90 (>60 ml/min/1.73 sqM); Prothrombin Time 10.3 sec (9.0-12.0); Sodium 137 mmol/L (137-145); Total Bilirubin 0.3 mg/dL (0.2-1.3); Total Protein 6.3 g/dL (6.3-8.2)
[2022-07-26 03:41] LABS: AST 31 U/L (14-36); Alkaline Phosphatase 51 U/L (38-126); Magnesium 1.7 mg/dL (1.6-2.3); Potassium 3.9 mmol/L (3.5-5.1)
[2022-07-26 04:24] LABS: Appearance,Urine Clear (Clear); Bilirubin,Urine Negative (Negative); Blood,Urine Negative (Negative); Color,Urine Yellow; Glucose,Urine (UA) Negative (Negative); Ketones,Urine Negative (Negative); Leukocyte Esterase,Urine Negative (Negative); Nitrite,Urine Negative (Negative); PH, Urine 5.5 (5.0-8.0); Protein,Urine Negative (Negative); Specific Gravity,Urine 1.021 (1.001-1.035); Urobilinogen,Urine <2.0 mg/dL (<2.0)
[2022-07-26 05:12] VITALS: BP 123/82; PULSE 74; RESP 18
--- NOTE | 2022-07-26 07:01 | XR ---
EXAM: XR Chest, 1 View CLINICAL HISTORY: ITS.REASON XR Reason: SOB, seizure TECHNIQUE: Frontal view of the chest. COMPARISON: No relevant prior studies available. FINDINGS: Lungs: Perihilar hazy streaky subsegmental opacities. Elevated diaphragms, small lung volumes. Slightly hazy lungs, ill-defined bronchovascular markings. Pleural space: Unremarkable. No pneumothorax. Heart: Unremarkable. No cardiomegaly. Mediastinum: Slightly enlarged cardiac mediastinal silhouette. Bones/joints: Unremarkable. IMPRESSION: Findings suggestive of subtle interstitial edema and streaky perihilar atelectasis. Alternatively, finding may represent changes of aspiration pneumonitis, bronchitis or unusual pneumonia
== END 2022-07-26 05:34 | disposition home or self-care (01) ==
LOC: EDBD → MERGE 02:53 → EC 02:53
DX: G40.909 Epilepsy, unspecified, not intractable, without status epilepticus (principal); R74.02 Elevation of levels of lactic acid dehydrogenase [LDH]; Z88.8 Allergy status to other drugs, medicaments and biological substances
CPT/HCPCS: 36415; 93005; 85379; 83880; 80053; 83605; 83690; 83735; 84484; 85025; 85610; 85730; 81003; 71045; 99285; G0480; 80320

== ENCOUNTER 2023-01-17 14:41 | Inpatient (IN) | payer BC, OTHER ==
[2023-01-17] MEDS ORDERED: NALOXONE 0.4 MG/ML 1 ML VIAL IVP STA (15:08)
[2023-01-17] MEDS ORDERED: LORazepam 2 MG/ML INJ IV STA (15:30)
[2023-01-17] MEDS ORDERED: KETOROLAC 15 MG/ML 1 ML VIAL IVP STA (15:42)
[2023-01-17 15:57] LABS: ALT 18 U/L (4-34); African American GFR (CKD) 17 (>60 ml/min/1.73 sqM); Anion Gap 18 mmol/L; Blood Urea Nitrogen 50 mg/dL (7-17); Calcium 8.2 mg/dL (8.4-10.2); Carbon Dioxide 18 mmol/L (22-30); Chloride 97 mmol/L (98-107); Glucose 87 mg/dL (74-99); Non-African American GFR(CKD) 15 (>60 ml/min/1.73 sqM); Sodium 133 mmol/L (137-145); Total Bilirubin 0.5 mg/dL (0.2-1.3)
[2023-01-17 16:03] LABS: Valproic Acid (Depakene) 57.2 ug/mL
[2023-01-17 16:11] LABS: HCT 26.9 % (34.0-46.0); HGB 8.3 gm/dL (11.4-16.0); Hypochromasia Marked; MCH 24.4 pg (25.0-35.0); MCHC 30.6 g/dL (31.0-37.0); MCV 79.7 fL (80.0-100.0); Mean Platelet Volume 7.7; Platelet Count 347 k/uL (150-450); RBC 3.38 m/uL (3.80-5.40); RDW 15.7 % (11.5-15.5); WBC 25.4 k/uL (3.8-10.6)
[2023-01-17 16:12] LABS: AST 41 U/L (14-36); Albumin 3.4 g/dL (3.5-5.0); Alkaline Phosphatase 52 U/L (38-126); Potassium 5.8 mmol/L (3.5-5.1); Total Protein 6.2 g/dL (6.3-8.2)
--- NOTE | 2023-01-17 16:50 | CT ---
EXAMINATION TYPE: CT brain wo con DATE OF EXAM: 01/17/2023 COMPARISON: 06/19/2022 INDICATION: Seizures DLP: 1130.4 mGycm, Automated exposure control for dose reduction was used. CONTRAST: None CT of the brain is performed utilizing 3 mm thick sections through the posterior fossa and 3 mm thick sections through the remaining calvarium. Study is performed within 24 hours of arrival to the hosp ital. No abnormal hyperdensity is present to suggest an acute intracranial hemorrhage. No mass lesion is evident. No acute infarcts are evident. Ventricles and sulci are appropriate for the patient age. Minimal mucosal thickening in the right maxillary sinus. This appears slightly diminished from compar tatiana. The paranasal sinuses and mastoid air cells are air. IMPRESSION: 1. No acute intracranial process. Follow-up MRI can be performed as clinically indicated.
[2023-01-17 17:26] LABS: Band Neutrophils % 14 %; Lymphocytes # (M) 1.27 k/uL (1.0-4.8); Metamyelocytes # (M) 0.25 k/uL (0); Metamyelocytes % 1 %; Monocytes # (M) 1.78 k/uL (0-1.0); Myelocytes # (M) 0.25 k/uL (0); Myelocytes % 1 %; Neutrophils % (M) 74 %; Nucleated Red Blood Cells 0 /100 WBC (0-0); Polychromasia Present; Total Cells Counted 200; Toxic Vacuolation Present
[2023-01-17 17:54] LABS: Appearance,Urine Cloudy (Clear); Bilirubin,Urine Negative (Negative); Blood,Urine Small (Negative); Color,Urine Yellow; Glucose,Urine (UA) 1+ (Negative); Ketones,Urine Negative (Negative); Leukocyte Esterase,Urine Large (Negative); Nitrite,Urine Negative (Negative); PH, Urine 5.5 (5.0-8.0); Protein,Urine 2+ (Negative); Urobilinogen,Urine <2.0 mg/dL (<2.0)
[2023-01-17 17:56] LABS: Bacteria,Urine Many /hpf; Mucus,Urine Rare /hpf; RBC,Urine 15 /hpf (0-5); WBC,Urine >182 /hpf (0-5)
[2023-01-17] MEDS ORDERED: cefTRIAXone IN SWFI 1,000 MG/10 ML SYRINGE IVP STA (18:10)
--- NOTE | 2023-01-17 18:28 | ED ---
General Adult HPI - General Chief complaint: Seizure Stated complaint: Siezure Time Seen by Provider: 01/17/23 14:41 Source: patient, EMS, RN notes reviewed, old records reviewed Mode of arrival: EMS Limitations: no limitations - History of Present Illness Initial comments: This a 47-year-old female presents emergency Department with a past medical hist ory for seizures. According to EMS the told them that she had seized for about 45 minutes. Patient had a history of seizures for the last year. According to EMS she seized again in the ambulance so she was given initial 5 mg of Versed and another 5 in route. Patient herself is unable to give any history eventually the showed up and stated that she was seizing for quite a bit of time at home and stated that prior to one year ago when she got some vaccination she had no history of any seizures. Patient is on Gilliam chronically for back pain. states she supposed be on 10 Gilliam was 3 times a day however when we looked it up patient is on 5 mg Gilliam twice a day - Related Data Home Medications Medication Instructions Recorded Confirmed HYDROcodone/APAP 5-325MG [[place] 1 tab PO BID PRN 06/19/22 01/17/23 5-325] Acetaminophen Tab [Tylenol Tab] 500 mg PO Q8H PRN 01/17/23 01/17/23 Divalproex Sodium [Depakote] 500 mg PO BID@1000,2200 01/17/23 01/17/23 Ibuprofen [Motrin] 800 mg PO Q8H PRN 01/17/23 01/17/23 Lacosamide [Vimpat] 100 mg PO QID@04,10,16,22 01/17/23 01/17/23 Allergies Allergy/AdvReac Type Severity Reaction Status Date / Time aspirin AdvReac see comment Verified 01/17/23 15:29 ibuprofen [From Motrin] AdvReac see comment Verified 01/17/23 15:29 levetiracetam [From Keppra] AdvReac Seizures Verified 01/17/23 15:29 Review of Systems ROS Statement: Those systems with pertinent positive or pertinent negative responses have been documented in the HPI. ROS Other: All systems not noted in ROS Statement are negative. Past Medical History Past Medical History: GERD/Reflux, Seizure Disorder Additional Past Medical History / Comment(s): Hx of migraines, elevated HR, one seizure/unknown cause 2017; "Severe refux, awakening in noc w/ choking since gastric sleeve surgery." History of Any Multi-Drug Resistant Organisms: MRSA Date of last positivie culture/infection: 08/30/20 MDRO Source:: Right Thigh Past Surgical History: Bariatric Surgery, Cholecystectomy, Orthopedic Surgery Additional Past Surgical History / Comment(s): lap band 2009, gastic sleeve 04/03; EGD; IVF; metatarsus abduction/age 6; Past Anesthesia/Blood Transfusion Reactions: Motion Sickness, Postoperative Nausea & Vomiting (PONV) Additional Past Anesthesia/Blood Transfusion Reaction / Comment(s): no hx of blood transfusion Past Psychological History: Anxiety, Depression Smoking Status: Never smoker Past Alcohol Use History: Unable to Obtain Past Drug Use History: Unable to Obtain - Past Family History Mother Family Medical History: Cancer, Hypertension Additional Family Medical History / Comment(s): Breast CA Brother(s) Family Medical History: No Reported History Father History Unknown: Yes Additional Family Medical History / Comment(s): father of suicide . General Exam - General Exam Comments Initial Comments: GENERAL: Patient is well-developed and well-nourished. Patient is nontoxic and well- hydrated and is in no acute distress. Patient appears postictal at this time ENT: Neck is soft and supple. No significant lymphadenopathy is noted. Oropharynx is clear. Moist mucous membranes. Neck has full range of motion without elic iting any pain. EYES: The sclera were anicteric and conjunctiva were pink and moist. Extraocular movements were intact and pupils were equal round and reactive to light. Eyelids were unremarkable. PULMONARY: Unlabored respirations. Good breath sounds bilaterally. No audible rales rhonchi or wheezing was noted. CARDIOVASCULAR: There is a regular rate and rhythm without any murmurs gallops or rubs. ABDOMEN: Soft and nontender with normal bowel sounds. SKIN: Skin is clear with no lesions or rashes and otherwise unremarkable. NEUROLOGIC: Patient is post ictal. MUSCULOSKELETAL: Unable to assess LYMPHATICS: No significant lymphadenopathy is noted PSYCHIATRIC: Unable to assess Limitations: no limitations Course Vital Signs 01/17/23 01/17/23 01/17/23 14:47 15:26 15:30 Temperature 98 F Pulse Rate 101 H 115 H Respiratory 18 16 16 Rate Blood Pressure 89/59 99/56 O2 Sat by Pulse 100 98 Oximetry 01/17/23 01/17/23 01/17/23 16:00 16:30 17:00 Temperature Pulse Rate 95 96 91 Respiratory 20 19 17 Rate Blood Pressure 138/77 103/58 92/62 O2 Sat by Pulse 100 100 98 Oximetry 01/17/23 17:30 Temperature Pulse Rate 98 Respiratory 18 Rate Blood Pressure 110/75 O2 Sat by Pulse 100 Oximetry Medical Decision Making - Medical Decision Making EKG is interpreted by myself. EKG shows a sinus rhythm at 96 bpm VT interval 237 dresses 93 Q-T intervals 325 QTC is 379. Patient's EKG shows no ST segment elevation or depression. Was pt. sent in by a medical professional or institution (, PA, CLINICAL NUTRITIONIST, urgent care, hospital, or [facility]...) When possible be specific @ -No Did you speak to anyone other than the patient for history (EMS, parent, family, police, friend...)? What history was obtained from this source @ -EMS gave all of the history until arrived and then he gave the rest Did you review nursing and triage notes (agree or disagree)? Why? @ -I reviewed and agree shows with nursing and triage notes Were old charts reviewed (outside hosp., previous admission, EMS record, old EKG, old radiological studies, urgent care reports/EKG's, [facility] records)? Report findings @ -I reviewed prior charts in prior lab work on this patient Differential Diagnosis (chest pain, altered mental status, abdominal pain women, abdominal pain men, vaginal bleeding, weakness, fever, dyspnea, syncope, headache, dizziness, GI bleed, back pain, seizure, CVA, palpatations, mental health, musculoskeletal)? @ -Differential Seizure: Recurrent seizure disorder, febrile seizure, alcohol withdrawal, stimulants, meningitis, encephalitis, intercranial hemorrhage, intracranial tumor, stroke, eclampsia, thyrotoxicosis, hypocalcemia, hyponatremia, hypernatremia, hypomagnesemia, psychogenic, this is not meant to be an all-inclusive list. EKG interpreted by me (3pts min.). @ -As above X-rays interpreted by me (1pt min.). @ -None done CT interpreted by me (1pt min.). @ -CT of the brain shows no acute abnormality U/S interpreted by me (1pt. min.). @ -None done What testing was considered but not performed or refused? (CT, X-rays, U/S, labs)? Why? @ -None What meds were considered but not given or refused? Why? @ -None Did you discuss the management of the patient with other professionals (professionals i.e. , PA, CLINICAL NUTRITIONIST, lab, RT, psych nurse, social work associate, genetics teacher, teacher, chief accounting officer, piano case maker)? Give summary @ -I spoke with [facility] and they agreed to admit the patient admitted the patient wrote admitting orders Was smoking cessation discussed for >3mins.? @ -No Was critical care preformed (if so, how long)? @ -No Were there social determinants of health that impacted care today? How? (Homelessness, low income, unemployed, alcoholism, drug addiction, transportation, low edu. Level, literacy, decrease access to med. care, senior living, rehab)? @ -No Was there de-escalation of care discussed even if they declined (Discuss DNR or withdrawal of care, Hospice)? DNR status @ -No What co-morbidities impacted this encounter? (DM, HTN, Smoking, COPD, CAD, Cancer, CVA, ARF, Chemo, Hep., AIDS, mental health diagnosis, sleep apnea, morbid obesity)? @ -None Was patient admitted / discharged? Hospital course, mention meds given and route, prescriptions, significant lab abnormalities, going to OR and other pertinent info. @ -Patient was given one of Ativan when she had a seizure in the emergency department which lasts approximately 3 minutes however immediately after the patient stopped seizing I started talking to her she was talked to me fluently which made me consider the fact that she was having a pseudoseizure. Patient just prior to this whole episode was given some Narcan because her eyes were pinpoint and she was taking more Gilliam was then she was prescribed as far as we can find out at that time. Patient's complaint at that time when I spoke with her was being cold we gave her some blankets. Patient has had no seizure activity since. Patient did have a urinary tract infection with a high white count as well as acute injury injury so patient will be admitted. I spoke with [facility] hospitalist and consulted neuro and nephrology. Undiagnosed new problem with uncertain prognosis? @ -No Drug Therapy requiring intensive monitoring for toxicity (Heparin, Nitro, Insuli n, Cardizem)? @ -No Were any procedures done? @ -No Diagnosis/symptom? @ -Acute kidney injury Acute, or Chronic, or Acute on Chronic? @ -Acute Uncomplicated (without systemic symptoms) or Complicated (systemic symptoms)? @ -Complicated Side effects of treatment? @ -No Exacerbation, Progression, or Severe Exacerbation? @ -No Poses a threat to life or bodily function? How? (Chest pain, USA, PA, pneumonia, PE, COPD, DKA, ARF, appy, cholecystitis, CVA, Diverticulitis, Homicidal, Suicidal, threat to staff... and all critical care pts) @ -Yes this could lead to significant electrolyte abnormalities and arrhythmia s. Diagnosis/symptom? @ -Urinary tract infection Acute, or Chronic, or Acute on Chronic? @ -Acute Uncomplicated (without systemic symptoms) or Complicated (systemic symptoms)? @ -Complicated Side effects of treatment? @ -none Exacerbation, Progression, or Severe Exacerbation] @ -No Poses a threat to life or bodily function? @ -no Diagnosis/symptom? @ -Seizure Acute, or Chronic, or Acute on Chronic? @ -Acute Uncomplicated (without systemic symptoms) or Complicated (systemic symptoms)? @ -Complicated Side effects of treatment? @ -none Exacerbation, Progression, or Severe Exacerbation] @ -no Poses a threat to life or bodily function? @ -no - Lab Data Result diagrams: 01/17/23 15:38 01/17/23 15:38 Lab Results 01/17/23 01/17/23 01/17/23 Range/Units 15:38 15:38 15:43 WBC 25.4 H (3.8-10.6) k/uL RBC 3.38 L (3.80-5.40) m/uL Hgb 8.3 L (11.4-16.0) gm/dL Hct 26.9 L (34.0-46.0) % MCV 79.7 L (80.0-100.0) fL MCH 24.4 L (25.0-35.0) pg MCHC 30.6 L (31.0-37.0) g/dL RDW 15.7 H (11.5-15.5) % Plt Count 347 (150-450) k/uL MPV 7.7 Neutrophils % (Manual) 74 % Band Neuts % (Manual) 14 % Lymphocytes % (Manual) 5 % Monocytes % (Manual) 7 % Metamyelocytes % 1 % Myelocytes % 1 % Neutrophils # (Manual) 22.30 H (1.3-7.7) k/uL Lymphocytes # (Manual) 1.27 (1.0-4.8) k/uL Monocytes # (Manual) 1.78 H (0-1.0) k/uL Metamyelocytes # (Man) 0.25 H (0) k/uL Myelocytes # (Manual) 0.25 H (0) k/uL Nucleated RBCs 0 (0-0) /100 WBC Manual Slide Review Performed Toxic Vacuolation Present Polychromasia Present Hypochromasia Marked Sodium 133 L (137-145) mmol/L Potassium 5.8 H (3.5-5.1) mmol/L Chloride 97 L (98-107) mmol/L Carbon Dioxide 18 L (22-30) mmol/L Anion Gap 18 mmol/L BUN 50 H (7-17) mg/dL Creatinine 3.57 H (0.52-1.04) mg/dL Est GFR (CKD-EPI)AfAm 17 (>60 ml/min/1.73 sqM) Est GFR (CKD-EPI)NonAf 15 (>60 ml/min/1.73 sqM) Glucose 87 (74-99) mg/dL Calcium 8.2 L (8.4-10.2) mg/dL Total Bilirubin 0.5 (0.2-1.3) mg/dL AST 41 H (14-36) U/L ALT 18 (4-34) U/L Alkaline Phosphatase 52 (38-126) U/L Total Protein 6.2 L (6.3-8.2) g/dL Albumin 3.4 L (3.5-5.0) g/dL Urine Color Urine Appearance (Clear) Urine pH (5.0-8.0) Ur Specific Range (1.001-1.035) Urine Protein (Negative) Urine Glucose (UA) (Negative) Urine Ketones (Negative) Urine Blood (Negative) Urine Nitrite (Negative) Urine Bilirubin (Negative) Urine Urobilinogen (<2.0) mg/dL Ur Leukocyte Esterase (Negative) Urine RBC (0-5) /hpf Urine WBC (0-5) /hpf Urine WBC Clumps (None) /hpf Urine Bacteria (None) /hpf Urine Mucus (None) /hpf Acetaminophen <10.0 ug/mL Valproic Acid 57.2 ug/mL 01/17/23 Range/Units 17:36 WBC (3.8-10.6) k/uL RBC (3.80-5.40) m/uL Hgb (11.4-16.0) gm/dL Hct (34.0-46.0) % MCV (80.0-100.0) fL MCH (25.0-35.0) pg MCHC (31.0-37.0) g/dL RDW (11.5-15.5) % Plt Count (150-450) k/uL MPV Neutrophils % (Manual) % Band Neuts % (Manual) % Lymphocytes % (Manual) % Monocytes % (Manual) % Metamyelocytes % % Myelocytes % % Neutrophils # (Manual) (1.3-7.7) k/uL Lymphocytes # (Manual) (1.0-4.8) k/uL Monocytes # (Manual) (0-1.0) k/uL Metamyelocytes # (Man) (0) k/uL Myelocytes # (Manual) (0) k/uL Nucleated RBCs (0-0) /100 WBC Manual Slide Review Toxic Vacuolation Polychromasia Hypochromasia Sodium (137-145) mmol/L Potassium (3.5-5.1) mmol/L Chloride (98-107) mmol/L Carbon Dioxide (22-30) mmol/L Anion Gap mmol/L BUN (7-17) mg/dL Creatinine (0.52-1.04) mg/dL Est GFR (CKD-EPI)AfAm (>60 ml/min/1.73 sqM) Est GFR (CKD-EPI)NonAf (>60 ml/min/1.73 sqM) Glucose (74-99) mg/dL Calcium (8.4-10.2) mg/dL Total Bilirubin (0.2-1.3) mg/dL AST (14-36) U/L ALT (4-34) U/L Alkaline Phosphatase (38-126) U/L Total Protein (6.3-8.2) g/dL Albumin (3.5-5.0) g/dL Urine Color Yellow Urine Appearance Cloudy H (Clear) Urine pH 5.5 (5.0-8.0) Ur Specific Range 1.020 (1.001-1.035) Urine Protein 2+ H (Negative) Urine Glucose (UA) 1+ (Negative) Urine Ketones Negative (Negative) Urine Blood Small (Negative) Urine Nitrite Negative (Negative) Urine Bilirubin Negative (Negative) Urine Urobilinogen <2.0 (<2.0) mg/dL Ur Leukocyte Esterase Large (Negative) Urine RBC 15 H (0-5) /hpf Urine WBC >182 H (0-5) /hpf Urine WBC Clumps Many H (None) /hpf Urine Bacteria Many H (None) /hpf Urine Mucus Rare H (None) /hpf Acetaminophen ug/mL Valproic Acid ug/mL Disposition Clinical Impression: Acute kidney injury, Urinary tract infection, Generalized seizure, Anemia Disposition: ADMITTED IP TO THIS [facility] Instructions (If sedation given, give patient instructions): Seizure/Epilepsy Discharge Instructions & Follow-Up Referrals: Pauline Saucedo [Primary Care Provider] - 1-2 days Time of Disposition: 19:03
[2023-01-17] MEDS ORDERED: SODIUM CHLORIDE 0.9% 1,000 ML IV ONE (19:05)
[2023-01-18] MEDS: HYDROcodone/APAP 5-325MG 1 EACH TAB PO PRN ×3 (05:02→19:29)
[2023-01-18] MEDS ORDERED: SODIUM BICARB 8.4% 50 ML SYR (1 MEQ/ML) IV ONE (09:39)
[2023-01-18] MEDS ORDERED: CALCIUM GLUCONATE IN NACL 1 GM in SALINE 1 100ML.BAG IVPB ONE (09:39)
[2023-01-18] MEDS ORDERED: INSULIN REGULAR 100 UNIT/ML VIAL (IV) IV ONE (09:39)
[2023-01-18] MEDS ORDERED: DEXTROSE 50% SYRINGE 50 ML IVP ONE (09:39)
[2023-01-18] MEDS ORDERED: LACOSAMIDE 50 MG TABLET PO SCH (10:00)
[2023-01-18] MEDS ORDERED: DIVALPROEX 500 MG TABLET.DR PO SCH (10:00)
--- NOTE | 2023-01-18 10:13 | US ---
EXAMINATION TYPE: US kidneys/renal and bladder DATE OF EXAM: 01/18/2023 COMPARISON: NONE CLINICAL INDICATION: Female, 47 years old with history of Renal failure; Chronic back pain with recen t bilateral flank and low abdomen pain with nausea and vomiting. Hx of bariatric surgery. EXAM MEASUREMENTS: Right Kidney: 14.0 x 6.6 x 6.5 cm Left Kidney: 11.0 x 6.1 x 6.2 cm Right Kidney: Stones seen without hydro Left Kidney: Renal calcification lower pole without hydro Bladder: wnl Bilateral Jets seen: Yes IMPRESSION: 1. Bilateral echogenic foci. Nonshadowing renal stones may be present. Follow-up can be performed.
[2023-01-18] MEDS: SODIUM CHLORIDE 0.9% 1,000 ML IV SCH ×2 (10:16→19:32)
--- NOTE | 2023-01-18 11:48 | P.NPCON ---
History of Present Illness - Reason for Consult acute renal failure - History of Present Illness Patient is a 47-year-old female with history of seizures maintained on Depakote and Vimpat. Patient is admitted to the hospital with a history of seizure about 45 minutes prior to coming to ER. Admitted complaining of weakness. No previous history of kidney diseases. Patient is noted to be hypotensive with systolic blood pressure 89 mmHg at lowest. Patient was taking Motrin after extraction of right lower molar about 5 days ago. She also admitted to decreased oral intake. No significant urinary symptoms. UA is suggestive of underlying UTI. No history of fever chills or abdominal pain. Serum creatinine was 3.57 mg/dL. Previous creatinine 0.54 on 07/26/2022. Review of Systems As per HPI Past Medical History Past Medical History: GERD/Reflux, Seizure Disorder Additional Past Medical History / Comment(s): Hx of migraines, elevated HR, one seizure/unknown cause 2016; "Severe reflux, awakening in noc w/ choking since gastric sleeve surgery." History of Any Multi-Drug Resistant Organisms: MRSA Date of last positivie culture/infection: 08/30/20 MDRO Source:: Right Thigh Past Surgical History: Bariatric Surgery, Cholecystectomy, Orthopedic Surgery Additional Past Surgical History / Comment(s): lap band 2009, gastic sleeve 04/03; EGD; IVF; metatarsus abduction/age 6; Past Anesthesia/Blood Transfusion Reactions: No Reported Reaction, Motion Sickness, Postoperative Nausea & Vomiting (PONV) Additional Past Anesthesia/Blood Transfusion Reaction / Comment(s): no hx of blood transfusion Past Psychological History: Anxiety, Depression Smoking Status: Never smoker Past Alcohol Use History: None Reported Additional Past Alcohol Use History / Comment(s): Smoked as teen for few years on/off Past Drug Use History: None Reported Additional Drug Use History / Comment(s): Rare use. - Past Family History Mother Family Medical History: Cancer, Hypertension Additional Family Medical History / Comment(s): Breast CA Brother(s) Family Medical History: No Reported History Father History Unknown: Yes Additional Family Medical History / Comment(s): father of suicide . Medications and Allergies Home Medications Medication Instructions Recorded Confirmed Type HYDROcodone/APAP 5-325MG [[place] 1 tab PO BID PRN 06/19/22 01/17/23 History 5-325] Acetaminophen Tab [Tylenol Tab] 500 mg PO Q8H PRN 01/17/23 01/17/23 History Divalproex Sodium [Depakote] 500 mg PO BID@1000,2200 01/17/23 01/17/23 History Ibuprofen [Motrin] 800 mg PO Q8H PRN 01/17/23 01/17/23 History Lacosamide [Vimpat] 100 mg PO QID@04,10,16,22 01/17/23 01/17/23 History Allergies Allergy/AdvReac Type Severity Reaction Status Date / Time aspirin AdvReac see comment Verified 01/17/23 15:29 ibuprofen [From Motrin] AdvReac see comment Verified 01/17/23 15:29 levetiracetam [From Keppra] AdvReac Seizures Verified 01/17/23 15:29 Physical Exam Vitals: Vital Signs Temp Pulse Resp BP Pulse Ox 01/18/23 10:57 87 18 89/61 96 01/18/23 09:32 90 16 93/62 97 01/18/23 07:59 98.4 F 90 18 101/71 97 01/18/23 06:00 105 H 18 112/70 96 01/18/23 05:00 111 H 18 98/58 96 01/18/23 04:00 108 H 20 97/61 96 01/18/23 03:00 105 H 22 95/62 96 01/18/23 02:00 110 H 22 94/56 97 01/18/23 01:00 112 H 23 97/64 97 01/18/23 00:00 113 H 21 104/84 95 01/17/23 23:00 105 H 18 108/67 95 01/17/23 22:29 108 H 18 105/61 97 01/17/23 22:00 111 H 16 112/69 98 01/17/23 21:00 111 H 22 112/66 98 01/17/23 20:00 112 H 23 112/65 98 01/17/23 19:30 107 H 16 108/76 98 01/17/23 17:30 98 18 110/75 100 01/17/23 17:00 91 17 92/62 98 01/17/23 16:30 96 19 103/58 100 01/17/23 16:00 95 20 138/77 100 01/17/23 15:30 115 H 16 99/56 98 01/17/23 15:26 16 01/17/23 14:47 98 F 101 H 18 89/59 100 Intake and Output 01/17/23 01/18/23 01/18/23 22:59 06:59 14:59 Other: Weight 81.647 kg Patient is awake comfortable, no acute distress Examination of the heart S1 and S2 Examination the lungs bilateral breath sounds are heard Abdomen is soft nontender Examination of lower extremities shows no significant edema [employer] ST[employer]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 Acute kidney injury, ATN secondary to hypotension and underlying infection. Also exacerbated by recent use of NSAIDs along with volume depletion. UA shows 2+ protein with significant pyuria suggestive of underlying UTI. Ultrasound shows no hydronephrosis. 2. Pyuria rule out UTI 3. Seizure disorder with an episode of seizure prior to admission 4. Recent right lower molar extraction about 5 days ago 5. Anemia rule out iron deficiency 6. Hyperkalemia associated with acute kidney injury and NSAIDs 7. Anion gap metabolic acidosis secondary to lactic acidosis and acute kidney injury Plan: Continue with IV fluids Repeat labs today and again in a.m. Continue with empiric antibiotics Avoid NSAIDs Check iron profile Thank you for the consultation. We will continue to follow the patient with you during her hospitalization.
[2023-01-18 12:29] LABS: Basophils % (A) 0 %; Eosinophils # (A) 0.2 k/uL (0-0.7); Eosinophils % (A) 1 %; HCT 24.8 % (34.0-46.0); HGB 7.3 gm/dL (11.4-16.0); Hypochromasia Marked; Lymphocytes # (A) 0.9 k/uL (1.0-4.8); Lymphocytes % (A) 5 %; MCH 24.1 pg (25.0-35.0); MCHC 29.5 g/dL (31.0-37.0); MCV 81.8 fL (80.0-100.0); Mean Platelet Volume 7.3; Monocytes % (A) 6 %; Neutrophils # (A) 13.7 k/uL (1.3-7.7); Neutrophils % (A) 86 %; Platelet Count 282 k/uL (150-450); RBC 3.03 m/uL (3.80-5.40); RDW 15.7 % (11.5-15.5)
--- NOTE | 2023-01-18 12:29 | P.HPIM ---
History of Present Illness H&P Date: 01/18/23 Chief Complaint: Seizure * 47-year-old patient with past medical history significant for seizure disorder, migraine headaches, anxiety, depression, history of morbid obesity with gastric bypass, previous history of cellulitis secondary to MRSA, presented to the emergency department brought in by EMS after her called and patient had multiple episodes of severe seizures. Patient had a seizure on her way to the ER and was given 5 mg of Versed. At the time of presentation patient was obtunded and history was obtained from patient had similar presentation when she was admitted in March 2022 and left AGAINST MEDICAL ADVICE then. Patient was seen by neurology at that time * Workup initiated in ER included CBC which were WBC of 25.4 hemoglobin of 8.3 hematocrit of 26.9 platelet count of 347 * Serum chemistry obtained in ER showed sodium of 133, potassium of 5.8, serum bicarbonate 18, BU and 50 creatinine 3.57 lactate of 2.4, AST of 41 ALT 18 * Urinalysis obtained showed cloudy urine, WBC of 182, many bacteria, leukocyte esterase large, serum valproic acid levels 57.2 a sitter mindful less than 10 * CT head obtained in ER negative for acute intracranial process * Patient was given IV fluids normal saline, patient was given 1 dose of Toradol in ED, started on IV Rocephin * patient admitted to medical floor with consultations to be obtained from [facility] u[facility], nephrology and infectious disease REVIEW OF SYSTEMS: Recurrent seizures, altered mental status on admission CONSTITUTIONAL: No fever, no malaise, no fatigue. HEENT: No recent visual problems or hearing problems. Denied any sore throat. CARDIOVASCULAR: No chest pain, orthopnea, PND, no palpitations, no syncope. PULMONARY: No shortness of breath, no cough, no hemoptysis. GASTROINTESTINAL: No diarrhea, no nausea, no vomiting, no abdominal pain. NEUROLOGICAL: No headaches, no weakness, no numbness. HEMATOLOGICAL: Denies any bleeding or petechiae. GENITOURINARY: Denies any burning micturition, frequency, or urgency. MUSCULOSKELETAL/RHEUMATOLOGICAL: Denies any joint pain, swelling, or any muscle pain. ENDOCRINE: Denies any polyuria or polydipsia. PHYSICAL EXAMINATION: GENERAL: The patient is alert and oriented x3, ill appearance, toxic appearance HEENT: Pupils are round and equally reacting to light. EOMI. No scleral icterus. CARDIOVASCULAR: S1 and S2 present. No murmurs, rubs, or gallops. PULMONARY: Chest is clear to auscultation, no wheezing or crackles. ABDOMEN: Soft, nontender, nondistended, normoactive bowel sounds. No palpable organomegaly. MUSCULOSKELETAL: No joint swelling or deformity. EXTREMITIES: No cyanosis, clubbing, or pedal edema. NEUROLOGICAL: Gross neurological examination did not reveal any focal deficits. Past Medical History Past Medical History: GERD/Reflux, Seizure Disorder Additional Past Medical History / Comment(s): Hx of migraines, elevated HR, one seizure/unknown cause 2016; "Severe refux, awakening in noc w/ choking since gastric sleeve surgery." History of Any Multi-Drug Resistant Organisms: MRSA Date of last positivie culture/infection: 08/30/20 MDRO Source:: Right Thigh Past Surgical History: Bariatric Surgery, Cholecystectomy, Orthopedic Surgery Additional Past Surgical History / Comment(s): lap band 2009, gastic sleeve 04/03; EGD; IVF; metatarsus abduction/age 6; Past Anesthesia/Blood Transfusion Reactions: Motion Sickness, Postoperative Nausea & Vomiting (PONV) Additional Past Anesthesia/Blood Transfusion Reaction / Comment(s): no hx of blood transfusion Past Psychological History: Anxiety, Depression Smoking Status: Never smoker Past Alcohol Use History: Unable to Obtain Past Drug Use History: Unable to Obtain - Past Family History Mother Family Medical History: Cancer, Hypertension Additional Family Medical History / Comment(s): Breast CA Brother(s) Family Medical History: No Reported History Father History Unknown: Yes Additional Family Medical History / Comment(s): father of suicide . Medications and Allergies Home Medications Medication Instructions Recorded Confirmed Type HYDROcodone/APAP 5-325MG [[place] 1 tab PO BID PRN 06/19/22 01/17/23 History 5-325] Acetaminophen Tab [Tylenol Tab] 500 mg PO Q8H PRN 01/17/23 01/17/23 History Divalproex Sodium [Depakote] 500 mg PO BID@1000,2200 01/17/23 01/17/23 History Ibuprofen [Motrin] 800 mg PO Q8H PRN 01/17/23 01/17/23 History Lacosamide [Vimpat] 100 mg PO QID@04,10,16,22 01/17/23 01/17/23 History Allergies Allergy/AdvReac Type Severity Reaction Status Date / Time aspirin AdvReac see comment Verified 01/17/23 15:29 ibuprofen [From Motrin] AdvReac see comment Verified 01/17/23 15:29 levetiracetam [From Keppra] AdvReac Seizures Verified 01/17/23 15:29 Physical Exam Vitals: Vital Signs Temp Pulse Resp BP Pulse Ox 01/18/23 09:32 90 16 93/62 97 01/18/23 07:59 98.4 F 90 18 101/71 97 01/18/23 06:00 105 H 18 112/70 96 01/18/23 05:00 111 H 18 98/58 96 01/18/23 04:00 108 H 20 97/61 96 01/18/23 03:00 105 H 22 95/62 96 01/18/23 02:00 110 H 22 94/56 97 01/18/23 01:00 112 H 23 97/64 97 01/18/23 00:00 113 H 21 104/84 95 01/17/23 23:00 105 H 18 108/67 95 01/17/23 22:29 108 H 18 105/61 97 01/17/23 22:00 111 H 16 112/69 98 01/17/23 21:00 111 H 22 112/66 98 01/17/23 20:00 112 H 23 112/65 98 01/17/23 19:30 107 H 16 108/76 98 01/17/23 17:30 98 18 110/75 100 01/17/23 17:00 91 17 92/62 98 01/17/23 16:30 96 19 103/58 100 01/17/23 16:00 95 20 138/77 100 01/17/23 15:30 115 H 16 99/56 98 01/17/23 15:26 16 01/17/23 14:47 98 F 101 H 18 89/59 100 Results CBC & Chem 7: 01/17/23 15:38 01/17/23 15:38 Labs: Abnormal Lab Results - Last 24 Hours (Table) 01/17/23 01/17/23 01/17/23 Range/Units 15:38 15:38 17:36 WBC 25.4 H (3.8-10.6) k/uL RBC 3.38 L (3.80-5.40) m/uL Hgb 8.3 L (11.4-16.0) gm/dL Hct 26.9 L (34.0-46.0) % MCV 79.7 L (80.0-100.0) fL MCH 24.4 L (25.0-35.0) pg MCHC 30.6 L (31.0-37.0) g/dL RDW 15.7 H (11.5-15.5) % Neutrophils # (Manual) 22.30 H (1.3-7.7) k/uL Monocytes # (Manual) 1.78 H (0-1.0) k/uL Metamyelocytes # (Man) 0.25 H (0) k/uL Myelocytes # (Manual) 0.25 H (0) k/uL Sodium 133 L (137-145) mmol/L Potassium 5.8 H (3.5-5.1) mmol/L Chloride 97 L (98-107) mmol/L Carbon Dioxide 18 L (22-30) mmol/L BUN 50 H (7-17) mg/dL Creatinine 3.57 H (0.52-1.04) mg/dL Plasma Lactic Acid Prosper (0.7-2.0) mmol/L Calcium 8.2 L (8.4-10.2) mg/dL AST 41 H (14-36) U/L Total Protein 6.2 L (6.3-8.2) g/dL Albumin 3.4 L (3.5-5.0) g/dL Urine Appearance Cloudy H (Clear) Urine Protein 2+ H (Negative) Urine RBC 15 H (0-5) /hpf Urine WBC >182 H (0-5) /hpf Urine WBC Clumps Many H (None) /hpf Urine Bacteria Many H (None) /hpf Urine Mucus Rare H (None) /hpf 01/17/23 Range/Units 18:58 WBC (3.8-10.6) k/uL RBC (3.80-5.40) m/uL Hgb (11.4-16.0) gm/dL Hct (34.0-46.0) % MCV (80.0-100.0) fL MCH (25.0-35.0) pg MCHC (31.0-37.0) g/dL RDW (11.5-15.5) % Neutrophils # (Manual) (1.3-7.7) k/uL Monocytes # (Manual) (0-1.0) k/uL Metamyelocytes # (Man) (0) k/uL Myelocytes # (Manual) (0) k/uL Sodium (137-145) mmol/L Potassium (3.5-5.1) mmol/L Chloride (98-107) mmol/L Carbon Dioxide (22-30) mmol/L BUN (7-17) mg/dL Creatinine (0.52-1.04) mg/dL Plasma Lactic Acid Prosper 2.4 H* (0.7-2.0) mmol/L Calcium (8.4-10.2) mg/dL AST (14-36) U/L Total Protein (6.3-8.2) g/dL Albumin (3.5-5.0) g/dL Urine Appearance (Clear) Urine Protein (Negative) Urine RBC (0-5) /hpf Urine WBC (0-5) /hpf Urine WBC Clumps (None) /hpf Urine Bacteria (None) /hpf Urine Mucus (None) /hpf Thrombosis Risk Factor Assmnt - DVT/VTE Prophylaxis DVT/VTE Prophylaxis: Mechanical Prophylaxis ordered Assessment and Plan Assessment: Assessment and plan * History of seizure disorder with breakthrough seizures * Acute renal failure * Urinary tract infection * Severe sepsis from UTI * Acute hyperkalemia * Metabolic acidosis from renal failure/sepsis * Iron deficiency anemia * In regards to breakthrough seizure, CT head obtained which was negative for acute intracranial process, neurology consulted continue Lasix, continue home regimen including Demerol Depakote and Lamictal * Regards to acute renal failure, continue patient on IV fluid, follow up on renal functions, nephrology consulted renal ultrasound ordered * In regards to hyperkalemia, patient given insulin, dextrose, calcium gluconate, sodium bicarbonate follow potassium levels ordered * In regards to severe sepsis continue patient on fluid resuscitation, blood cultures ordered, urine cultures ordered infectious disease consulted * In regards to iron deficiency anemia patient to be started on ferrous sulfate * Consultations obtained from neurology, infectious disease and nephrology * CODE STATUS is full code Time with Patient: Greater than 30
--- NOTE | 2023-01-18 12:39 | P.CNNES ---
History of Present Illness Consult date: 01/18/23 Requesting physician: Aakash Neil Reason for Consult: seizure History of Present Illness: This is a 47-year-old woman with a history of seizures, medication noncompliance, and history of gastric bypass 2018, depression and anxiety who presented emergency department because of seizure. According to patient she had her. Teeth worked on this past then the next day she stated that that the tooth was possibly infected and that she was having nausea vomiting as a result she was not intake and her antiepileptic drugs. She does not recall the seizure she had but she states that she was notified by her significant other that she has seizure and she recalls having urinary bowel and cons but denies any tongue bite. She feels that she's doing better currently compared to when she was at home. She states that she is on Vimpat 100 mg 4 times a day. She is also on Depakote. She follows up with Dr. Galeano as an outpatient for her seizures. 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 Patient states she could not handle Keppra since she feels the Keppra recess frequency of seizure. As well in the past it she notified me that she could not handle Dilantin. Seems the patient again is on Vimpat 100 mg 4 times a day and Depakote 500 mg twice a day. Of note I personally seen her last on 04-04 and the patient had a prolonged EEG (2.5 hours) which was reported normal. Some of the workup during his hospital visit consisted of: White blood cell is 25.4 thousand, predominantly neutrophilic. Lactic acid is 2.4. Sodium is 133 at. BUN is 50 and neck creatinine is 3.57. Urinalysis seems suggestive of underlying acute urinary tract infection. Valproic acid level is 57.2 is considered therapeutic. Review of Systems The positive and negative as per HPI. Past Medical History Past Medical History: GERD/Reflux, Seizure Disorder Additional Past Medical History / Comment(s): Hx of migraines, elevated HR, one seizure/unknown cause 2017; "Severe reflux, awakening in noc w/ choking since gastric sleeve surgery." History of Any Multi-Drug Resistant Organisms: MRSA Date of last positivie culture/infection: 08/30/20 MDRO Source:: Right Thigh Past Surgical History: Bariatric Surgery, Cholecystectomy, Orthopedic Surgery Additional Past Surgical History / Comment(s): lap band 2010, gastic sleeve 04/03; EGD; IVF; metatarsus abduction/age 6; Past Anesthesia/Blood Transfusion Reactions: No Reported Reaction, Motion Sickness, Postoperative Nausea & Vomiting (PONV) Additional Past Anesthesia/Blood Transfusion Reaction / Comment(s): no hx of blood transfusion Past Psychological History: Anxiety, Depression Smoking Status: Never smoker Past Alcohol Use History: None Reported Additional Past Alcohol Use History / Comment(s): Smoked as teen for few years on/off Past Drug Use History: None Reported Additional Drug Use History / Comment(s): Rare use. - Past Family History Mother Family Medical History: Cancer, Hypertension Additional Family Medical History / Comment(s): Breast CA Brother(s) Family Medical History: No Reported History Father History Unknown: Yes Additional Family Medical History / Comment(s): father of suicide . Medications and Allergies Home Medications Medication Instructions Recorded Confirmed Type HYDROcodone/APAP 5-325MG [[place] 1 tab PO BID PRN 06/19/22 01/17/23 History 5-325] Acetaminophen Tab [Tylenol Tab] 500 mg PO Q8H PRN 01/17/23 01/17/23 History Divalproex Sodium [Depakote] 500 mg PO BID@1000,2200 01/17/23 01/17/23 History Ibuprofen [Motrin] 800 mg PO Q8H PRN 01/17/23 01/17/23 History Lacosamide [Vimpat] 100 mg PO QID@04,10,16,22 01/17/23 01/17/23 History Allergies Allergy/AdvReac Type Severity Reaction Status Date / Time aspirin AdvReac see comment Verified 01/17/23 15:29 ibuprofen [From Motrin] AdvReac see comment Verified 01/17/23 15:29 levetiracetam [From Keppra] AdvReac Seizures Verified 01/17/23 15:29 Physical Examination - Vital Signs Vital Signs: Vital Signs Temp Pulse Resp BP Pulse Ox 01/18/23 12:15 98.3 F 91 18 108/70 98 01/18/23 10:57 87 18 89/61 96 01/18/23 09:32 90 16 93/62 97 01/18/23 07:59 98.4 F 90 18 101/71 97 01/18/23 06:00 105 H 18 112/70 96 01/18/23 05:00 111 H 18 98/58 96 01/18/23 04:00 108 H 20 97/61 96 01/18/23 03:00 105 H 22 95/62 96 01/18/23 02:00 110 H 22 94/56 97 01/18/23 01:00 112 H 23 97/64 97 01/18/23 00:00 113 H 21 104/84 95 01/17/23 23:00 105 H 18 108/67 95 01/17/23 22:29 108 H 18 105/61 97 01/17/23 22:00 111 H 16 112/69 98 01/17/23 21:00 111 H 22 112/66 98 01/17/23 20:00 112 H 23 112/65 98 01/17/23 19:30 107 H 16 108/76 98 01/17/23 17:30 98 18 110/75 100 01/17/23 17:00 91 17 92/62 98 01/17/23 16:30 96 19 103/58 100 01/17/23 16:00 95 20 138/77 100 01/17/23 15:30 115 H 16 99/56 98 01/17/23 15:26 16 01/17/23 14:47 98 F 101 H 18 89/59 100 Intake and Output 01/17/23 01/18/23 01/18/23 22:59 06:59 14:59 Other: Weight 81.647 kg GENERAL: The patient is lying in bed and is not in acute distress. NEUROLOGICAL: Higher mental function: The patient is awake, alert, oriented to self, place and time. Patient is following commands. No aphasia and no neglect. Cranial nerves: The pupils are round, equal and reactive to light and accommodation. Visual coon are full to confrontation throughout. Extraocular movement is intact no nystagmus is noted. Facial sensation is normal to touch throughout. The facial strength is normal throughout. Hearing is normal bilaterally to hand rub. Tongue is midline and moved [id number] without any difficulty. No dysarthria is noted. Shoulder shrug is normal bilaterally. Motor: The strength is 5 over 5 throughout. Normal tone and bulk. Cerebellum: Normal finger to nose heel to yin bilaterally. Sensation: Sensation is normal to touch throughout. Reflexes (right/left): 2+ throughout. Plantars are downgoing bilaterally. Results - Laboratory Findings CBC and BMP: 01/18/23 12:02 01/18/23 12:02 Abnormal Lab Findings: Abnormal Labs 01/17/23 01/17/23 01/17/23 15:38 15:38 17:36 WBC 25.4 H RBC 3.38 L Hgb 8.3 L Hct 26.9 L MCV 79.7 L MCH 24.4 L MCHC 30.6 L RDW 15.7 H Neutrophils # (Manual) 22.30 H Monocytes # (Manual) 1.78 H Metamyelocytes # (Man) 0.25 H Myelocytes # (Manual) 0.25 H Sodium 133 L Potassium 5.8 H Chloride 97 L Carbon Dioxide 18 L BUN 50 H Creatinine 3.57 H Plasma Lactic Acid Prosper Calcium 8.2 L AST 41 H Total Protein 6.2 L Albumin 3.4 L Urine Appearance Cloudy H Urine Protein 2+ H Urine RBC 15 H Urine WBC >182 H Urine WBC Clumps Many H Urine Bacteria Many H Urine Mucus Rare H 01/17/23 18:58 WBC RBC Hgb Hct MCV MCH MCHC RDW Neutrophils # (Manual) Monocytes # (Manual) Metamyelocytes # (Man) Myelocytes # (Manual) Sodium Potassium Chloride Carbon Dioxide BUN Creatinine Plasma Lactic Acid Prosper 2.4 H* Calcium AST Total Protein Albumin Urine Appearance Urine Protein Urine RBC Urine WBC Urine WBC Clumps Urine Bacteria Urine Mucus Assessment and Plan Assessment: This is a 47-year-old woman who presented with department because of seizure. She states that she had her tubes worked on this past and then the next day she felt she had a tooth infected and she was having nausea vomiting and as a result she was not taking her antiepileptic drugs. As she was having seizure as a result. Breakthrough seizure. Seems provoke since she was having nausea vomiting as well as a seems that she has a probable acute UTI History of seizures and she had a prolonged EEG on 04/05/2022 (2.5 hours) was reported as normal Probable acute UTI. Acute Kidney insufficiency History of medication noncompliance History of abscess boil in the lower back History of gastric bypass in 2018 History of cellulitis in the right thigh Chronic depression/anxiety History of marijuana use Plan: Patient is restarted on her home medication of Vimpat 100 mg 1 tablet 4 times a day as well as Depakote 500 mg twice a day. She cannot handle Keppra since she feels increases the frequency of seizures. Patient continues to have worsening of nausea and vomiting then changed Lacosamide to IV. Seizure precautions seizure pads I ordered the Vimpat level Nephrology is consulted ID consulted for severe sepsis with UTI. We'll defer the rest of the medical management to primary team On discharge the patient needs to follow-up with her neurologist as an outpatient Dr. Galeano within 2-3 weeks. Thank you for the consultation. ADDENDUM: The patient was in her room in [facility] and her nurse felt patient was having a seizure and was given Ativan. Upon seeing the patient the patient was drowsy and had nonrhtyhmic movement of the uppers and was responding to questions and her shaking resolved with distraction and asking patient to relax. I did not feel her episode that I witnessed was a seizure. Time with Patient: Greater than 30
[2023-01-18 12:45] LABS: African American GFR (CKD) 20 (>60 ml/min/1.73 sqM); Anion Gap 15 mmol/L; Blood Urea Nitrogen 61 mg/dL (7-17); Calcium 7.9 mg/dL (8.4-10.2); Carbon Dioxide 20 mmol/L (22-30); Chloride 99 mmol/L (98-107); Glucose 56 mg/dL (74-99); Non-African American GFR(CKD) 18 (>60 ml/min/1.73 sqM); Potassium 4.3 mmol/L (3.5-5.1); Sodium 134 mmol/L (137-145)
[2023-01-18] MEDS: ONDANSETRON 4 MG/2 ML VIAL IVP PRN (13:02)
[2023-01-18] MEDS: LORazepam 2 MG/ML INJ IV PRN (13:05)
[2023-01-18] MEDS: LORazepam 2 MG/ML INJ IM STA ×2 (13:22→13:39)
[2023-01-18] MEDS ORDERED: SODIUM CHLORIDE 0.9% 2,000 ML IV ONE (13:25)
[2023-01-18] MEDS: ACETAMINOPHEN IV (For NPO) 1,000 MG in EMPTY BAG 1 BAG IVPB SCH ×2 (13:54→19:27)
[2023-01-18] MEDS: AMPICILLIN-SULBACTAM 3 GM in SODIUM CHLORIDE 0.9% 100 ML IVPB SCH ×2 (14:44→20:50)
[2023-01-18] MEDS: FERROUS SULFATE 325 MG TAB PO SCH (16:33)
[2023-01-18 16:51] LABS: % Iron Saturation 1.97 (12.00-45.00)
[2023-01-18] MEDS: Lacosamide IV (ages 17+ yrs) 200 MG/20 ML ML IVP SCH ×2 (16:51→20:49)
[2023-01-18] MEDS: VALPROATE SODIUM 250 MG in SODIUM CHLORIDE 0.9% 100 ML IVPB SCH ×2 (17:55→23:32)
--- NOTE | 2023-01-18 17:59 | EEG ---
ELECTROENCEPHALOGRAM REPORT CLINICAL HISTORY: This is a 47-year-old woman with history of seizure, who has a breakthrough seizure. The video EEG is obtained to evaluate for seizure and epileptiform activity. RELEVANT MEDICATIONS: 1. Vimpat. 2. Depakote. 3. Ativan. EEG TYPE: A routine 21-channel EEG with video using the 10/20 electrode placement system. DESCRIPTION: Wakefulness is obtained. The background consists of [id number] voltage of 11 Hz activity. At times, the background consists of theta intermixed with delta activity. There is no physiological stage II sleep architecture. There is no focal slowing. There is diffuse excessive beta activity. INTERICTAL AND ICTAL: None. ACTIVATION PROCEDURE: Photic stimulation and hyperventilation are not performed. CLINICAL INTERPRETATION: This is an abnormal routine EEG. The background slowing is suggestive of mild encephalopathy. The excessive beta activity is due to medication effect (Ativan). There is no focal slowing, epileptiform discharge, or seizure on the EEG. Clinical correlation is recommended. CHARLES / ALISSONN: [id number] / ANTONIO
--- NOTE | 2023-01-18 22:45 | P.CONS ---
History of Present Illness - Reason for Consult Consult date: 01/18/23 Severe sepsis, UTI Requesting physician: Niraj Lainez - Chief Complaint Fever and weakness x one day - History of Present Illness Patient is a 47-year-old female with a past medical history significant for reflux seizure disorder patient recently have a tooth extraction as the patient has been brought to the hospital last evening for evaluation of seizure that lasted about 45 minutes apparently the patient did have another seizure when she was in the EMS and she received 5 mg of Versed apparently and the provided most of the history and mentioned the patient has been complaining of pain after her tooth extraction few days ago there are no clear history of any headache nausea or vomiting or any diarrhea patient presented to the hospital was afebrile however he did spike a fever of 103 F this afternoon patient was tachycardic but not hypotensive or hypoxic patient did have a wbc 25.4 which is down to 16,000 today lactic acid was elevated did have elevated pain and creatinine levels observe normal urine was positive patient did have a CT of the brain that was negative for any bleed patient did have a abdominal bladder ultrasound no evidence of any hydronephrosis bilateral echogenic foci nonshadowing renal stone may be present patient has been on Rocephin infectious he was consulted for further management of antibiotic therapy patient time I cortez l do patient just have a seizure and has received Ativan and was not able to provide any history so most information has been obtained from review the chart and talking with at the bedside Review of Systems Positive point and negatives has been mentioned in the HPI, complete review of systems was performed and all other systems are negative Past Medical History Past Medical History: GERD/Reflux, Seizure Disorder Additional Past Medical History / Comment(s): Hx of migraines, elevated HR, one seizure/unknown cause 2016; "Severe reflux, awakening in noc w/ choking since gastric sleeve surgery." History of Any Multi-Drug Resistant Organisms: MRSA Year Discovered:: 08/30/20 MDRO Source:: Right Thigh Past Surgical History: Bariatric Surgery, Cholecystectomy, Orthopedic Surgery Additional Past Surgical History / Comment(s): lap band 2009, gastic sleeve 04/03; EGD; IVF; metatarsus abduction/age 6; Past Anesthesia/Blood Transfusion Reactions: No Reported Reaction, Motion Sickness, Postoperative Nausea & Vomiting (PONV) Additional Past Anesthesia/Blood Transfusion Reaction / Comm: no hx of blood transfusion Past Psychological History: Anxiety, Depression Smoking Status: Never smoker Past Alcohol Use History: None Reported Additional Past Alcohol Use History / Comment(s): Smoked as teen for few years on/off Past Drug Use History: None Reported Additional Drug Use History / Comment(s): Rare use. - Past Family History Mother Family Medical History: Cancer, Hypertension Additional Family Medical History / Comment(s): Breast CA Brother(s) Family Medical History: No Reported History Father History Unknown: Yes Additional Family Medical History / Comment(s): father of suicide . Medications and Allergies Home Medications Medication Instructions Recorded Confirmed Type HYDROcodone/APAP 5-325MG [[place] 1 tab PO BID PRN 06/19/22 01/17/23 History 5-325] Acetaminophen Tab [Tylenol] 500 mg PO Q8H PRN 01/17/23 01/17/23 History Amoxic-Pot Clav 875-125Mg 1 tab PO Q12HR 6 Days #12 tab 01/25/23 Rx [Augmentin 875-125] Cholestyramine (with Sugar) 4 gm PO DAILY 3 Days #3 packet 01/25/23 Rx [Questran Packet] Divalproex Sodium [Depakote] 500 mg PO BID@1000,2200 #60 tab 01/25/23 Rx Ferrous Sulfate [Iron (65 MG 325 mg PO BID-W/MEALS #60 tab 01/25/23 Rx Elemental)] Lacosamide [Vimpat] 100 mg PO QID@04,10,16,22 #120 tab 01/25/23 Rx Omeprazole [PriLOSEC] 20 mg PO AC-BID 30 Days #60 cap 01/25/23 Rx Ondansetron Odt [Zofran ODT] 4 mg PO Q8HR PRN 2 Days #8 tab 01/25/23 Rx Allergies Allergy/AdvReac Type Severity Reaction Status Date / Time aspirin AdvReac see comment Verified 01/17/23 15:29 ibuprofen [From Motrin] AdvReac see comment Verified 01/17/23 15:29 levetiracetam [From Keppra] AdvReac Seizures Verified 01/17/23 15:29 Physical Exam Vitals: Vital Signs Temp Pulse Resp BP Pulse Ox 01/18/23 12:15 98.3 F 91 18 108/70 98 01/18/23 10:57 87 18 89/61 96 01/18/23 09:32 90 16 93/62 97 01/18/23 07:59 98.4 F 90 18 101/71 97 01/18/23 06:00 105 H 18 112/70 96 01/18/23 05:00 111 H 18 98/58 96 01/18/23 04:00 108 H 20 97/61 96 01/18/23 03:00 105 H 22 95/62 96 01/18/23 02:00 110 H 22 94/56 97 01/18/23 01:00 112 H 23 97/64 97 01/18/23 00:00 113 H 21 104/84 95 01/17/23 23:00 105 H 18 108/67 95 01/17/23 22:29 108 H 18 105/61 97 01/17/23 22:00 111 H 16 112/69 98 01/17/23 21:00 111 H 22 112/66 98 01/17/23 20:00 112 H 23 112/65 98 01/17/23 19:30 107 H 16 108/76 98 01/17/23 17:30 98 18 110/75 100 01/17/23 17:00 91 17 92/62 98 01/17/23 16:30 96 19 103/58 100 01/17/23 16:00 95 20 138/77 100 01/17/23 15:30 115 H 16 99/56 98 01/17/23 15:26 16 01/17/23 14:47 98 F 101 H 18 89/59 100 Intake and Output 01/17/23 01/18/23 01/18/23 22:59 06:59 14:59 Other: Weight 81.647 kg GENERAL DESCRIPTION: Middle-aged female lying in bed, no distress. No tachypnea or accessory muscle of respiration use. HEENT: Shows Pallor , no scleral icterus. Oral mucous membrane is dry. No pharyngeal erythema or thrush NECK: Trachea central, no thyromegaly. LUNGS: Unlabored breathing. Clear to auscultation anteriorly. No wheeze or crackle. HEART: S1, S2, regular rate and rhythm. No loud murmur ABDOMEN: Soft, no tenderness , guarding or rigidity, no organomegaly EXTREMITIES: No edema of feet. SKIN: No rash, no masses palpable. NEUROLOGICAL: The patient is sleepy lethargic but arousable, mood and affect normal. Results CBC & Chem 7: 01/25/23 06:44 01/25/23 06:44 Labs: Abnormal Lab Results - Last 24 Hours (Table) 01/17/23 01/17/23 01/17/23 Range/Units 15:38 15:38 17:36 WBC 25.4 H (3.8-10.6) k/uL RBC 3.38 L (3.80-5.40) m/uL Hgb 8.3 L (11.4-16.0) gm/dL Hct 26.9 L (34.0-46.0) % MCV 79.7 L (80.0-100.0) fL MCH 24.4 L (25.0-35.0) pg MCHC 30.6 L (31.0-37.0) g/dL RDW 15.7 H (11.5-15.5) % Neutrophils # (1.3-7.7) k/uL Neutrophils # (Manual) 22.30 H (1.3-7.7) k/uL Lymphocytes # (1.0-4.8) k/uL Monocytes # (Manual) 1.78 H (0-1.0) k/uL Metamyelocytes # (Man) 0.25 H (0) k/uL Myelocytes # (Manual) 0.25 H (0) k/uL Sodium 133 L (137-145) mmol/L Potassium 5.8 H (3.5-5.1) mmol/L Chloride 97 L (98-107) mmol/L Carbon Dioxide 18 L (22-30) mmol/L BUN 50 H (7-17) mg/dL Creatinine 3.57 H (0.52-1.04) mg/dL Plasma Lactic Acid [place] (0.7-2.0) mmol/L Calcium 8.2 L (8.4-10.2) mg/dL AST 41 H (14-36) U/L Total Protein 6.2 L (6.3-8.2) g/dL Albumin 3.4 L (3.5-5.0) g/dL Urine Appearance Cloudy H (Clear) Urine Protein 2+ H (Negative) Urine RBC 15 H (0-5) /hpf Urine WBC >182 H (0-5) /hpf Urine WBC Clumps Many H (None) /hpf Urine Bacteria Many H (None) /hpf Urine Mucus Rare H (None) /hpf 01/17/23 01/18/23 Range/Units 18:58 12:02 WBC 16.0 H (3.8-10.6) k/uL RBC 3.03 L (3.80-5.40) m/uL Hgb 7.3 L (11.4-16.0) gm/dL Hct 24.8 L (34.0-46.0) % MCV (80.0-100.0) fL MCH 24.1 L (25.0-35.0) pg MCHC 29.5 L (31.0-37.0) g/dL RDW 15.7 H (11.5-15.5) % Neutrophils # 13.7 H (1.3-7.7) k/uL Neutrophils # (Manual) (1.3-7.7) k/uL Lymphocytes # 0.9 L (1.0-4.8) k/uL Monocytes # (Manual) (0-1.0) k/uL Metamyelocytes # (Man) (0) k/uL Myelocytes # (Manual) (0) k/uL Sodium (137-145) mmol/L Potassium (3.5-5.1) mmol/L Chloride (98-107) mmol/L Carbon Dioxide (22-30) mmol/L BUN (7-17) mg/dL Creatinine (0.52-1.04) mg/dL Plasma Lactic Acid [place] 2.4 H* (0.7-2.0) mmol/L Calcium (8.4-10.2) mg/dL AST (14-36) U/L Total Protein (6.3-8.2) g/dL Albumin (3.5-5.0) g/dL Urine Appearance (Clear) Urine Protein (Negative) Urine RBC (0-5) /hpf Urine WBC (0-5) /hpf Urine WBC Clumps (None) /hpf Urine Bacteria (None) /hpf Urine Mucus (None) /hpf Assessment and Plan (1) Urinary tract infection Status: Acute Code(s): N39.0 - URINARY TRACT INFECTION, SITE NOT SPECIFIED SNOMED Code(s): 69926287 (2) Leukocytosis Status: Acute Code(s): D72.829 - ELEVATED WHITE BLOOD CELL COUNT, UNSPECIFIED SNOMED Code(s): 685779357 (3) Sepsis Status: Acute Code(s): A41.9 - SEPSIS, UNSPECIFIED ORGANISM SNOMED Code(s): 82387976 Plan: 1patient was in the hospital with sepsis in this patient who did have a fever elevated white count tachycardia did have significantly positive UA likely urinary source however the patient recently did have a tooth extraction and the patient has been complaining of some pain to the lower jaw a possible component of dental infection did not exclude 2-patient with renal insufficiency high risk of nephrotoxicity ultrasound did not mention any hydronephrosis no bilateral nonshadowing renal stone 3-discontinue Rocephin 4-start the patient on Unasyn dose adjusted to the kidney function by pharmacy 5-gentle IV fluid We will follow on clinical condition and cultures to further adjust medication if needed Thank you for this consultation we will follow the patient along with you Dictation was produced using [employer] dictation software. please excuse any grammatical, word or spelling errors. Time with Patient: Greater than 30
[2023-01-18] MEDS ORDERED: ALPRAZolam 0.25 MG TAB PO STA (23:26)
[2023-01-19] MEDS: ACETAMINOPHEN IV (For NPO) 1,000 MG in EMPTY BAG 1 BAG IVPB SCH ×2 (01:08→08:38)
[2023-01-19] MEDS: Lacosamide IV (ages 17+ yrs) 200 MG/20 ML ML IVP SCH ×4 (03:33→23:32)
[2023-01-19] MEDS: SODIUM CHLORIDE 0.9% 1,000 ML IV SCH ×2 (04:59→16:15)
[2023-01-19] MEDS: ACETAMINOPHEN TAB 325 MG TAB PO PRN ×2 (05:31→18:21)
[2023-01-19] MEDS: VALPROATE SODIUM 250 MG in SODIUM CHLORIDE 0.9% 100 ML IVPB SCH ×4 (05:32→23:32)
[2023-01-19 08:21] LABS: African American GFR (CKD) 67 (>60 ml/min/1.73 sqM); Anion Gap 11 mmol/L; Blood Urea Nitrogen 33 mg/dL (7-17); Calcium 7.5 mg/dL (8.4-10.2); Carbon Dioxide 19 mmol/L (22-30); Chloride 105 mmol/L (98-107); Glucose 94 mg/dL (74-99); HCT 21.8 % (34.0-46.0); Hypochromasia Moderate; MCH 24.5 pg (25.0-35.0); MCHC 31.5 g/dL (31.0-37.0); MCV 77.8 fL (80.0-100.0); Mean Platelet Volume 7.4; Microcytosis Slight; Non-African American GFR(CKD) 58 (>60 ml/min/1.73 sqM); Platelet Count 277 k/uL (150-450); Potassium 3.5 mmol/L (3.5-5.1); RBC 2.81 m/uL (3.80-5.40); RDW 15.9 % (11.5-15.5); Sodium 135 mmol/L (137-145); WBC 12.3 k/uL (3.8-10.6)
[2023-01-19 08:30] LABS: HGB 6.9 gm/dL (11.4-16.0)
[2023-01-19] MEDS: FERROUS SULFATE 325 MG TAB PO SCH ×2 (08:38→17:58)
[2023-01-19] MEDS: AMPICILLIN-SULBACTAM 3 GM in SODIUM CHLORIDE 0.9% 100 ML IVPB SCH ×4 (09:53→22:37)
--- NOTE | 2023-01-19 10:52 | P.PN ---
Subjective Patient is seen for follow-up for acute kidney injury. Renal function has improved. No significant complaints today. Serum creatinine decreased to 1.14 today. Hemoglobin was low at 6.9 g/dL. Objective - Vital Signs Vital signs: Vital Signs Temp 100 F H 01/19/23 07:31 Pulse 82 01/19/23 07:31 Resp 16 01/19/23 07:31 BP 114/63 01/19/23 07:31 Pulse Ox 93 L 01/19/23 07:31 FiO2 Intake & Output 01/18/23 01/19/23 01/19/23 18:59 06:59 18:59 Weight 81.647 kg Other: # Voids 1 3 # Bowel Movements 1 - Exam Patient is awake comfortable, no acute distress Examination of the heart S1 and S2 Examination the lungs bilateral breath sounds are heard Abdomen is soft nontender Examination of lower extremities shows no significant edema EVENT REPRESENTATIVE exam grossly intact - Labs CBC & Chem 7: 01/19/23 07:00 01/19/23 07:00 Labs: Abnormal Lab Results - Last 24 Hours (Table) 01/18/23 01/18/23 01/18/23 Range/Units 12:02 12:02 13:39 WBC 16.0 H (3.8-10.6) k/uL RBC 3.03 L (3.80-5.40) m/uL Hgb 7.3 L (11.4-16.0) gm/dL Hct 24.8 L (34.0-46.0) % MCV (80.0-100.0) fL MCH 24.1 L (25.0-35.0) pg MCHC 29.5 L (31.0-37.0) g/dL RDW 15.7 H (11.5-15.5) % Neutrophils # 13.7 H (1.3-7.7) k/uL Lymphocytes # 0.9 L (1.0-4.8) k/uL Sodium 134 L (137-145) mmol/L Carbon Dioxide 20 L (22-30) mmol/L BUN 61 H (7-17) mg/dL Creatinine 3.04 H (0.52-1.04) mg/dL Glucose 56 L (74-99) mg/dL Calcium 7.9 L (8.4-10.2) mg/dL Iron 6 L (50-170) UG/DL % Saturation 1.97 L (12.00-45.00) 01/19/23 01/19/23 Range/Units 07:00 07:00 WBC 12.3 H (3.8-10.6) k/uL RBC 2.81 L (3.80-5.40) m/uL Hgb 6.9 L* (11.4-16.0) gm/dL Hct 21.8 L (34.0-46.0) % MCV 77.8 L (80.0-100.0) fL MCH 24.5 L (25.0-35.0) pg MCHC (31.0-37.0) g/dL RDW 15.9 H (11.5-15.5) % Neutrophils # (1.3-7.7) k/uL Lymphocytes # (1.0-4.8) k/uL Sodium 135 L (137-145) mmol/L Carbon Dioxide 19 L (22-30) mmol/L BUN 33 H (7-17) mg/dL Creatinine 1.14 H (0.52-1.04) mg/dL Glucose (74-99) mg/dL Calcium 7.5 L (8.4-10.2) mg/dL Iron (50-170) UG/DL % Saturation (12.00-45.00) Microbiology - Last 24 Hours (Table) 01/17/23 18:50 Blood Culture - Preliminary Blood Assessment and Plan Assessment: 1. Acute kidney injury, ATN secondary to hypotension and underlying infection. Also exacerbated by recent use of NSAIDs along with volume depletion. UA shows 2+ protein with significant pyuria suggestive of underlying UTI. Ultrasound shows no hydronephrosis. 2. Pyuria rule out UTI 3. Seizure disorder with an episode of seizure prior to admission 4. Recent right lower molar extraction about 5 days ago 5. Anemia with severe iron deficiency 6. Hyperkalemia associated with acute kidney injury and NSAIDs 7. Anion gap metabolic acidosis secondary to lactic acidosis and acute kidney injury Plan: Continue with IV fluids IV iron supplementation Repeat labs in a.m.
[2023-01-19 11:29] LABS: C Reactive Protein 35.5 mg/dL (<1.0)
[2023-01-19] MEDS: SODIUM FERRIC GLUCONAT-SUCROSE 125 MG in SODIUM CHLORIDE 0.9% 100 ML IVPB SCH (11:45)
--- NOTE | 2023-01-19 12:57 | P.PN ---
Subjective Progress Note Date: 01/19/23 * 47-year-old patient with past medical history significant for seizure disorder, migraine headaches, anxiety, depression, history of morbid obesity with gastric bypass, previous history of cellulitis secondary to MRSA, presented to the emergency department brought in by EMS after her called and patient had multiple episodes of severe seizures. Patient had a seizure on her way to the ER and was given 5 mg of Versed. At the time of presentation patient was obtunded and history was obtained from patient had similar presentation when she was admitted in March 2022 and left AGAINST MEDICAL ADVICE then. Patient was seen by neurology at that time * Workup initiated in ER included CBC which were WBC of 25.4 hemoglobin of 8.3 hematocrit of 26.9 platelet count of 347 * Serum chemistry obtained in ER showed sodium of 133, potassium of 5.8, serum bicarbonate 18, BU and 50 creatinine 3.57 lactate of 2.4, AST of 41 ALT 18 * Urinalysis obtained showed cloudy urine, WBC of 182, many bacteria, leukocyte esterase large, serum valproic acid levels 57.2 a sitter mindful less than 10 * CT head obtained in ER negative for acute intracranial process * Patient was given IV fluids normal saline, patient was given 1 dose of Toradol in ED, started on IV Rocephin * patient admitted to medical floor with consultations to be obtained from neurology, nephrology and infectious disease * 01/19/2023: Patient seen and evaluated bedside, patient is alert and oriented 3, sleeping easily arousable, at bedside. Noted to have WBC count of 12.3, hemoglobin 6.9, platelet count of 277, serum chemistry sodium 135 creatinine 1.14 previously creatinine was 3.04. Continue patient on fluid resuscitation, patient had poor IV access requiring a midline, does have severe iron deficiency anemia lactate levels within normal limits, CRP 35.5 appreciate input from infectious disease, neurology, nephrology. Patient to be transfused 1 unit of packed RBC REVIEW OF SYSTEMS: Recurrent seizures resolved, altered mental status on admission improved CONSTITUTIONAL: No fever, no malaise, no fatigue. HEENT: No recent visual problems or hearing problems. Denied any sore throat. CARDIOVASCULAR: No chest pain, orthopnea, PND, no palpitations, no syncope. PULMONARY: No shortness of breath, no cough, no hemoptysis. GASTROINTESTINAL: No diarrhea, no nausea, no vomiting, no abdominal pain. NEUROLOGICAL: No headaches, no weakness, no numbness. HEMATOLOGICAL: Denies any bleeding or petechiae. GENITOURINARY: Denies any burning micturition, frequency, or urgency. MUSCULOSKELETAL/RHEUMATOLOGICAL: Denies any joint pain, swelling, or any muscle pain. ENDOCRINE: Denies any polyuria or polydipsia. PHYSICAL EXAMINATION: GENERAL: The patient is alert and oriented x3, ill appearance, toxic appearance, pale appearance HEENT: Pupils are round and equally reacting to light. EOMI. No scleral icterus. CARDIOVASCULAR: S1 and S2 present. No murmurs, rubs, or gallops. PULMONARY: Chest is clear to auscultation, no wheezing or crackles. ABDOMEN: Soft, nontender, nondistended, normoactive bowel sounds. No palpable organomegaly. MUSCULOSKELETAL: No joint swelling or deformity. EXTREMITIES: No cyanosis, clubbing, or pedal edema. NEUROLOGICAL: Gross neurological examination did not reveal any focal deficits. Objective - Vital Signs Vital signs: Vital Signs Temp 100 F H 01/19/23 07:31 Pulse 82 01/19/23 07:31 Resp 16 01/19/23 07:31 BP 114/63 01/19/23 07:31 Pulse Ox 93 L 01/19/23 07:31 FiO2 Intake & Output 01/18/23 01/19/23 01/19/23 18:59 06:59 18:59 Weight 81.647 kg Other: # Voids 1 3 # Bowel Movements 1 - Labs CBC & Chem 7: 01/19/23 07:00 01/19/23 07:00 Labs: Abnormal Lab Results - Last 24 Hours (Table) 01/18/23 01/19/23 01/19/23 Range/Units 13:39 07:00 07:00 WBC 12.3 H (3.8-10.6) k/uL RBC 2.81 L (3.80-5.40) m/uL Hgb 6.9 L* (11.4-16.0) gm/dL Hct 21.8 L (34.0-46.0) % MCV 77.8 L (80.0-100.0) fL MCH 24.5 L (25.0-35.0) pg RDW 15.9 H (11.5-15.5) % Sodium 135 L (137-145) mmol/L Carbon Dioxide 19 L (22-30) mmol/L BUN 33 H (7-17) mg/dL Creatinine 1.14 H (0.52-1.04) mg/dL Calcium 7.5 L (8.4-10.2) mg/dL Iron 6 L (50-170) UG/DL % Saturation 1.97 L (12.00-45.00) C-Reactive Protein 35.5 H (<1.0) mg/dL Microbiology - Last 24 Hours (Table) 01/17/23 18:50 Blood Culture - Preliminary Blood Assessment and Plan Assessment: Assessment and plan * History of seizure disorder with breakthrough seizures * Acute renal failure * Urinary tract infection * Severe sepsis from UTI * Acute hyperkalemia * Metabolic acidosis from renal failure/sepsis * Iron deficiency anemia * In regards to breakthrough seizure, CT head obtained which was negative for acute intracranial process, neurology consulted, continue IV Vimpat, continue valproic acid IV * Regards to acute renal failure, continue patient on IV fluid, follow up on renal functions, nephrology consulted renal ultrasound ordered shows bilateral echogenic foci, renal stones noted without hydronephrosis * In regards to hyperkalemia, given collection, potassium within normal limits * In regards to severe sepsis continue patient on fluid resuscitation, blood cultures ordered, urine cultures ordered infectious disease consulted. Continue IV Unasyn * In regards to iron deficiency anemia , patient given 1 unit of packed RBC 12 Lasix continue IV iron replacement * Consultations obtained from neurology, infectious disease and nephrology * CODE STATUS is full code
[2023-01-19 13:05] LABS: HCT 23.3 % (34.0-46.0); HGB 7.2 gm/dL (11.4-16.0); Hypochromasia Marked; MCH 24.6 pg (25.0-35.0); MCV 79.2 fL (80.0-100.0); Mean Platelet Volume 6.9; Platelet Count 288 k/uL (150-450); RBC 2.94 m/uL (3.80-5.40); RDW 15.8 % (11.5-15.5); WBC 11.4 k/uL (3.8-10.6)
[2023-01-19] MEDS: HYDROcodone/APAP 5-325MG 1 EACH TAB PO PRN ×2 (13:47→21:10)
[2023-01-19] MEDS: ONDANSETRON 4 MG/2 ML VIAL IVP PRN ×2 (13:51→22:38)
--- NOTE | 2023-01-19 17:43 | P.PN ---
Subjective Progress Note Date: 01/19/23 Upon seeing the patient the patient has not had any further seizures. According to the she's having episode of nausea and vomiting. Her hemoglobin was 6.9. Objective - Vital Signs Vital signs: Vital Signs Temp 98.1 F 01/19/23 15:02 Pulse 78 01/19/23 15:02 Resp 16 01/19/23 15:02 BP 114/76 01/19/23 15:02 Pulse Ox 98 01/19/23 15:02 FiO2 Intake & Output 01/18/23 01/19/23 01/19/23 18:59 06:59 18:59 Weight 81.647 kg Other: # Voids 1 3 # Bowel Movements 1 - Exam General is lying in bed and appears in mild acute distress Neuro- Somewhat limited because of her overall condition. The patient is somewhat mildly drowsy but is awake voltage voice. He is oriented to self. She is following simple commands or thumbs up close and opening her eyes. Multiple left bilateral upper extremity above gravity. Some of the workup during his hospital visit consisted of: White blood cell is 25.4 thousand, predominantly neutrophilic. Lactic acid is 2.4. Sodium is 133 at. BUN is 50 and neck creatinine is 3.57. He. Creatinine is 1.14. Her hemoglobin is trending down on presentation was 8.3 currently is 6.9 today and the repeated today was 7.2. CRP is 35.5. Urinalysis seems suggestive of underlying acute urinary tract infection. Valproic acid level is 57.[address] of the head is reported as no acute intracranial process. Routine EEG is abnormal. The background slowing is suggestive of mild encephalopathy. Excessive beta activities due to medication effect(Ativan). There is no focal slowing, perform discharges or seizure in the EEG. - Labs CBC & Chem 7: 01/19/23 12:21 01/19/23 07:00 Labs: Abnormal Lab Results - Last 24 Hours (Table) 01/19/23 01/19/23 01/19/23 Range/Units 07:00 07:00 12: WBC 12.3 H 11.4 H (3.8-10.6) k/uL RBC 2.81 L 2.94 L (3.80-5.40) m/uL Hgb 6.9 L* 7.2 L (11.4-16.0) gm/dL Hct 21.8 L 23.3 L (34.0-46.0) % MCV 77.8 L 79.2 L (80.0-100.0) fL MCH 24.5 L 24.6 L (25.0-35.0) pg RDW 15.9 H 15.8 H (11.5-15.5) % Sodium 135 L (137-145) mmol/L Carbon Dioxide 19 L (22-30) mmol/L BUN 33 H (7-17) mg/dL Creatinine 1.14 H (0.52-1.04) mg/dL Calcium 7.5 L (8.4-10.2) mg/dL C-Reactive Protein 35.5 H (<1.0) mg/dL Crossmatch 01/19/23 Range/Units 13:23 WBC (3.8-10.6) k/uL RBC (3.80-5.40) m/uL Hgb (11.4-16.0) gm/dL Hct (34.0-46.0) % MCV (80.0-100.0) fL MCH (25.0-35.0) pg RDW (11.5-15.5) % Sodium (137-145) mmol/L Carbon Dioxide (22-30) mmol/L BUN (7-17) mg/dL Creatinine (0.52-1.04) mg/dL Calcium (8.4-10.2) mg/dL C-Reactive Protein (<1.0) mg/dL Crossmatch See Detail Microbiology - Last 24 Hours (Table) 01/17/23 18:50 Blood Culture - Preliminary Blood Assessment and Plan Assessment: This is a 47-year-old woman who presented with department because of seizure. She states that she had her tubes worked on this past and then the next day she felt she had a tooth infected and she was having nausea vomiting and as a result she was not taking her antiepileptic drugs. As she was having seizure as a result. Breakthrough seizure. Seems provoke since she was having nausea vomiting as well as a seems that she has a probable acute UTI. Also possible tooth infection. History of seizures and she had a prolonged EEG on 04/05/2022 (2.5 hours) was reported as normal Probable acute UTI. Acute Kidney insufficiency--trending down Anemia. History of medication noncompliance History of abscess boil in the lower back History of gastric bypass in 2018 History of cellulitis in the right thigh Chronic depression/anxiety History of marijuana use Plan: Patient is restarted on her home medication of Vimpat 100 mg 1 tablet 4 times a day as well as Depakote 500 mg twice a day. The medication has been changed to IV because of her vomiting episodes. She cannot handle Keppra since she feels increases the frequency of seizures. Seizure precautions seizure pads Pending Vimpat level Nephrology is consulted ID is on board. We'll defer the rest of the medical management to primary team On discharge the patient needs to follow-up with her neurologist as an outpatient Dr. Galeano within 2-3 weeks. Plan discussed with the patient, her significant other was at bedside and her nurse. We'll continue to follow Time with Patient: Less than 30
[2023-01-20] MEDS: SODIUM CHLORIDE 0.9% 1,000 ML IV SCH ×3 (04:01→12:56)
[2023-01-20] MEDS: AMPICILLIN-SULBACTAM 3 GM in SODIUM CHLORIDE 0.9% 100 ML IVPB SCH ×4 (04:40→22:18)
[2023-01-20] MEDS: Lacosamide IV (ages 17+ yrs) 200 MG/20 ML ML IVP SCH ×4 (04:42→22:15)
[2023-01-20] MEDS: ACETAMINOPHEN TAB 325 MG TAB PO PRN ×2 (04:56→18:20)
[2023-01-20] MEDS: VALPROATE SODIUM 250 MG in SODIUM CHLORIDE 0.9% 100 ML IVPB SCH ×3 (08:15→18:17)
[2023-01-20] MEDS: HYDROcodone/APAP 5-325MG 1 EACH TAB PO PRN ×2 (08:16→20:22)
[2023-01-20] MEDS: FERROUS SULFATE 325 MG TAB PO SCH ×2 (08:16→17:06)
[2023-01-20] MEDS: SODIUM FERRIC GLUCONAT-SUCROSE 125 MG in SODIUM CHLORIDE 0.9% 100 ML IVPB SCH (09:26)
[2023-01-20 11:07] LABS: HGB 7.6 g/dL (12.0-15.0); MCH 24.8 pg (27.0-32.0); MCHC 31.7 g/dL (32.0-37.0); MCV 78.2 FL (80.0-97.0); Mean Platelet Volume 9.2 FL (9.5-12.2); NRBC Per 100 WBC 0 X 10*3/uL (0.00-0.01); Platelet Count 242 X 10*3/uL (140-440); RBC 3.07 X 10*6/uL (4.10-5.20); RDW 15.8 % (11.5-14.5); WBC 7.51 X 10*3/uL (4.50-10.00)
[2023-01-20 11:36] LABS: BUN/Creat Ratio 17.71 Ratio (12.00-20.00); Blood Urea Nitrogen 12.4 mg/dL (9.0-27.0); Calcium 7.5 mg/dL (8.7-10.3); Carbon Dioxide 21.8 mmol/L (21.6-31.8); Chloride 107 mmol/L (96-109); Glucose 85 mg/dL (70-110); Potassium 3.7 mmol/L (3.5-5.5); Sodium 139 mmol/L (135-145)
--- NOTE | 2023-01-20 12:16 | P.PN ---
Subjective Progress Note Date: 01/20/23 * 47-year-old patient with past medical history significant for seizure disorder, migraine headaches, anxiety, depression, history of morbid obesity with gastric bypass, previous history of cellulitis secondary to MRSA, presented to the emergency department brought in by EMS after her called and patient had multiple episodes of severe seizures. Patient had a seizure on her way to the ER and was given 5 mg of Versed. At the time of presentation patient was obtunded and history was obtained from patient had similar presentation when she was admitted in March 2022 and left AGAINST MEDICAL ADVICE then. Patient was seen by neurology at that time * Workup initiated in ER included CBC which were WBC of 25.4 hemoglobin of 8.3 hematocrit of 26.9 platelet count of 347 * Serum chemistry obtained in ER showed sodium of 133, potassium of 5.8, serum bicarbonate 18, BU and 50 creatinine 3.57 lactate of 2.4, AST of 41 ALT 18 * Urinalysis obtained showed cloudy urine, WBC of 182, many bacteria, leukocyte esterase large, serum valproic acid levels 57.2 a sitter mindful less than 10 * CT head obtained in ER negative for acute intracranial process * Patient was given IV fluids normal saline, patient was given 1 dose of Toradol in ED, started on IV Rocephin * patient admitted to medical floor with consultations to be obtained from neurology, nephrology and infectious disease * 01/19/2023: Patient seen and evaluated bedside, patient is alert and oriented 3, sleeping easily arousable, at bedside. Noted to have WBC count of 12.3, hemoglobin 6.9, platelet count of 277, serum chemistry sodium 135 creatinine 1.14 previously creatinine was 3.04. Continue patient on fluid resuscitation, patient had poor IV access requiring a midline, does have severe iron deficiency anemia lactate levels within normal limits, CRP 35.5 appreciate input from infectious disease, neurology, nephrology. Patient to be transfused 1 unit of packed RBC * 01/20/2023: Patient seen and evaluated bedside, patient is alert and oriented 3, patient does complain of nausea, vision has been seizure free, continue patient on IV hydration, CRP levels improving, patient has been afebrile. Blood cultures collected as well continue IV Unasyn REVIEW OF SYSTEMS: Recurrent seizures resolved, altered mental status on admission improved, nausea CONSTITUTIONAL: No fever, no malaise, no fatigue. HEENT: No recent visual problems or hearing problems. Denied any sore throat. CARDIOVASCULAR: No chest pain, orthopnea, PND, no palpitations, no syncope. PULMONARY: No shortness of breath, no cough, no hemoptysis. GASTROINTESTINAL:Recurrent seizures resolved, altered mental status on admission improved, nausea NEUROLOGICAL: No headaches, no weakness, no numbness. HEMATOLOGICAL: Denies any bleeding or petechiae. GENITOURINARY: Denies any burning micturition, frequency, or urgency. MUSCULOSKELETAL/RHEUMATOLOGICAL: Denies any joint pain, swelling, or any muscle pain. ENDOCRINE: Denies any polyuria or polydipsia. PHYSICAL EXAMINATION: GENERAL: The patient is alert and oriented x3, ill appearance, toxic appearance, pale appearance HEENT: Pupils are round and equally reacting to light. EOMI. No scleral icterus. CARDIOVASCULAR: S1 and S2 present. No murmurs, rubs, or gallops. PULMONARY: Chest is clear to auscultation, no wheezing or crackles. ABDOMEN: Soft, nontender, nondistended, normoactive bowel sounds. No palpable organomegaly. MUSCULOSKELETAL: No joint swelling or deformity. EXTREMITIES: No cyanosis, clubbing, or pedal edema. NEUROLOGICAL: Gross neurological examination did not reveal any focal deficits. Objective - Vital Signs Vital signs: Vital Signs Temp 98.4 F 01/20/23 07:08 Pulse 64 01/20/23 07:08 Resp 16 01/20/23 07:08 BP 117/65 01/20/23 07:08 Pulse Ox 96 01/20/23 07:08 FiO2 Intake & Output 01/19/23 01/20/23 01/20/23 18:59 06:59 18:59 Intake Total 1800 310 Balance 1800 310 Intake: Intake, IV Titration 1800 Amount ACETAMINOPHEN IV (For NPO 100 ) 1,000 mg In Empty Bag 1 bag @ 400 mls/hr IVPB Q6H [facility] Rx#:[id number] Ampicillin-Sulbactam 3 gm 200 In Sodium Chloride 0.9% 100 ml @ 200 mls/hr IVPB Q6H [facility] Rx#:[id number] Sodium Chloride 0.9% 1, 1200 000 ml @ 100 mls/hr IV . Q10H [facility] Rx#:[id number] Sodium Ferric Gluconat- 100 Sucrose 125 mg In Sodium Chloride 0.9% 100 ml @ 100 mls/hr IVPB DAILY [facility] Rx#:[id number] Valproate Sodium 250 mg 200 In Sodium Chloride 0.9% 100 ml @ 100 mls/hr IVPB Q6HR [facility] Rx#:[id number] Blood Product 0 310 Rc Irr As1 Unit 0 310 [id number] Other: Voiding Method Toilet # Voids 2 - Labs CBC & Chem 7: 01/20/23 06:45 01/20/23 06:45 Labs: Abnormal Lab Results - Last 24 Hours (Table) 01/19/23 01/19/23 01/20/23 Range/Units 12:21 13:23 06:45 WBC 11.4 H (3.8-10.6) k/uL RBC 2.94 L 3.07 L (3.80-5.40) m/uL Hgb 7.2 L 7.6 L (11.4-16.0) gm/dL Hct 23.3 L 24.0 L (34.0-46.0) % MCV 79.2 L 78.2 L (80.0-100.0) fL MCH 24.6 L 24.8 L (25.0-35.0) pg MCHC 31.7 L (32.0-37.0) g/dL RDW 15.8 H 15.8 H (11.5-15.5) % MPV 9.2 L (9.5-12.2) FL Calcium (8.7-10.3) mg/dL C-Reactive Protein (0.00-0.80) mg/dL Crossmatch See Detail 01/20/23 Range/Units 06:45 WBC (3.8-10.6) k/uL RBC (3.80-5.40) m/uL Hgb (11.4-16.0) gm/dL Hct (34.0-46.0) % MCV (80.0-100.0) fL MCH (25.0-35.0) pg MCHC (32.0-37.0) g/dL RDW (11.5-15.5) % MPV (9.5-12.2) FL Calcium 7.5 L (8.7-10.3) mg/dL C-Reactive Protein 18.60 H (0.00-0.80) mg/dL Crossmatch Microbiology - Last 24 Hours (Table) 01/17/23 18:50 Blood Culture - Preliminary Blood Assessment and Plan Assessment: Assessment and plan * History of seizure disorder with breakthrough seizures * Acute renal failure * Urinary tract infection * Severe sepsis from UTI * Acute hyperkalemia * Metabolic acidosis from renal failure/sepsis * Iron deficiency anemia * In regards to breakthrough seizure, CT head obtained which was negative for acute intracranial process, neurology consulted, continue IV Vimpat, continue valproic acid IV, will transition to home oral regimen once nausea improves * Regards to acute renal failure, continue patient on IV fluid, follow up on renal functions, nephrology consulted renal ultrasound ordered shows bilateral echogenic foci, renal stones noted without hydronephrosis * In regards to hyperkalemia, resolved * In regards to severe sepsis continue patient on fluid resuscitation, blood cultures ordered, urine cultures ordered infectious disease consulted. Continue IV Unasyn * In regards to iron deficiency anemia , patient given 1 unit of packed RBC 01/19 continue IV iron replacement * Consultations obtained from neurology, infectious disease and nephrology * CODE STATUS is full code
--- NOTE | 2023-01-20 12:47 | P.PN ---
Subjective Patient is seen for follow-up for acute kidney injury. Renal function has improved. No significant complaints today. Serum creatinine decreased to 0.7 today. Objective - Vital Signs Vital signs: Vital Signs Temp 98.4 F 01/20/23 07:08 Pulse 64 01/20/23 07:08 Resp 16 01/20/23 07:08 BP 117/65 01/20/23 07:08 Pulse Ox 96 01/20/23 07:08 FiO2 Intake & Output 01/19/23 01/20/23 01/20/23 18:59 06:59 18:59 Intake Total 1800 310 Balance 1800 310 Intake: Intake, IV Titration 1800 Amount ACETAMINOPHEN IV (For NPO 100 ) 1,000 mg In Empty Bag 1 bag @ 400 mls/hr IVPB Q6H [facility] Rx#:[id number] Ampicillin-Sulbactam 3 gm 200 In Sodium Chloride 0.9% 100 ml @ 200 mls/hr IVPB Q6H [facility] Rx#:[id number] Sodium Chloride 0.9% 1, 1200 000 ml @ 100 mls/hr IV . Q10H [facility] Rx#:[id number] Sodium Ferric Gluconat- 100 Sucrose 125 mg In Sodium Chloride 0.9% 100 ml @ 100 mls/hr IVPB DAILY [facility] Rx#:[id number] Valproate Sodium 250 mg 200 In Sodium Chloride 0.9% 100 ml @ 100 mls/hr IVPB Q6HR [facility] Rx#:[id number] Blood Product 0 310 Rc Irr As1 Unit 0 310 [id number] Other: Voiding Method Toilet # Voids 2 - Exam Patient is awake comfortable, no acute distress Examination of the heart S1 and S2 Examination the lungs bilateral breath sounds are heard Abdomen is soft nontender Examination of lower extremities shows no significant edema [employer] exam grossly intact - Labs CBC & Chem 7: 01/20/23 06:45 01/20/23 06:45 Labs: Abnormal Lab Results - Last 24 Hours (Table) 01/19/23 01/19/23 01/20/23 Range/Units 12:21 13:23 06:45 WBC 11.4 H (3.8-10.6) k/uL RBC 2.94 L 3.07 L (3.80-5.40) m/uL Hgb 7.2 L 7.6 L (11.4-16.0) gm/dL Hct 23.3 L 24.0 L (34.0-46.0) % MCV 79.2 L 78.2 L (80.0-100.0) fL MCH 24.6 L 24.8 L (25.0-35.0) pg MCHC 31.7 L (32.0-37.0) g/dL RDW 15.8 H 15.8 H (11.5-15.5) % MPV 9.2 L (9.5-12.2) FL Calcium (8.7-10.3) mg/dL C-Reactive Protein (0.00-0.80) mg/dL Crossmatch See Detail 01/20/23 Range/Units 06:45 WBC (3.8-10.6) k/uL RBC (3.80-5.40) m/uL Hgb (11.4-16.0) gm/dL Hct (34.0-46.0) % MCV (80.0-100.0) fL MCH (25.0-35.0) pg MCHC (32.0-37.0) g/dL RDW (11.5-15.5) % MPV (9.5-12.2) FL Calcium 7.5 L (8.7-10.3) mg/dL C-Reactive Protein 18.60 H (0.00-0.80) mg/dL Crossmatch Microbiology - Last 24 Hours (Table) 01/17/23 18:50 Blood Culture - Preliminary Blood Assessment and Plan Assessment: 1. Acute kidney injury, ATN secondary to hypotension and underlying infection. Also exacerbated by recent use of NSAIDs along with volume depletion. UA shows 2+ protein with significant pyuria suggestive of underlying UTI. Ultrasound shows no hydronephrosis. 2. Pyuria rule out UTI 3. Seizure disorder with an episode of seizure prior to admission 4. Recent right lower molar extraction about 5 days ago 5. Anemia with severe iron deficiency 6. Hyperkalemia associated with acute kidney injury and NSAIDs 7. Anion gap metabolic acidosis secondary to lactic acidosis and acute kidney injury Plan: Decrease IV fluids IV iron supplementation Repeat labs in a.m.
--- NOTE | 2023-01-20 14:26 | P.PN ---
Subjective Progress Note Date: 01/19/23 Principal diagnosis: Reason for follow-up is sepsis and UTI question of dental infection Patient is a 47-year-old female with a past medical history significant for reflux seizure disorder patient recently have a tooth extraction as the patient has been brought to the hospital for evaluation of seizure, patient also spiked a fever did have a positive UA concerning for urinary tract infection On today's evaluation that is 01/19/2023 the patient did have low-grade fever 100F this morning, the patient is breathing comfortably on room air and no need for supplemental oxygen, the patient denies having any chest pain or cough and no sputum production, patient denies nausea vomiting or any diarrhea, and no abdominal pain. Patient white count is 11.4, cultures are currently pending Objective - Vital Signs Vital signs: Vital Signs Temp 100 F H 01/19/23 07:31 Pulse 82 01/19/23 07:31 Resp 16 01/19/23 07:31 BP 114/63 01/19/23 07:31 Pulse Ox 93 L 01/19/23 07:31 FiO2 Intake & Output 01/18/23 01/19/23 01/19/23 18:59 06:59 18:59 Weight 81.647 kg Other: # Voids 1 3 # Bowel Movements 1 - Exam GENERAL DESCRIPTION: A middle-age female lying in bed in no distress RESPIRATORY SYSTEM: Unlabored breathing , clear to auscultation anteriorly HEART: S1 S2 regular rate and rhythm , ABDOMEN: Soft , no tenderness EXTREMITIES: No edema feet - Labs CBC & Chem 7: 01/20/23 06:45 01/20/23 06:45 Labs: Abnormal Lab Results - Last 24 Hours (Table) 01/18/23 01/18/23 01/19/23 Range/Units 12:02 13:39 07:00 WBC 12.3 H (3.8-10.6) k/uL RBC 2.81 L (3.80-5.40) m/uL Hgb 6.9 L* (11.4-16.0) gm/dL Hct 21.8 L (34.0-46.0) % MCV 77.8 L (80.0-100.0) fL MCH 24.5 L (25.0-35.0) pg RDW 15.9 H (11.5-15.5) % Sodium 134 L (137-145) mmol/L Carbon Dioxide 20 L (22-30) mmol/L BUN 61 H (7-17) mg/dL Creatinine 3.04 H (0.52-1.04) mg/dL Glucose 56 L (74-99) mg/dL Calcium 7.9 L (8.4-10.2) mg/dL Iron 6 L (50-170) UG/DL % Saturation 1.97 L (12.00-45.00) C-Reactive Protein (<1.0) mg/dL 01/19/23 Range/Units 07:00 WBC (3.8-10.6) k/uL RBC (3.80-5.40) m/uL Hgb (11.4-16.0) gm/dL Hct (34.0-46.0) % MCV (80.0-100.0) fL MCH (25.0-35.0) pg RDW (11.5-15.5) % Sodium 135 L (137-145) mmol/L Carbon Dioxide 19 L (22-30) mmol/L BUN 33 H (7-17) mg/dL Creatinine 1.14 H (0.52-1.04) mg/dL Glucose (74-99) mg/dL Calcium 7.5 L (8.4-10.2) mg/dL Iron (50-170) UG/DL % Saturation (12.00-45.00) C-Reactive Protein 35.5 H (<1.0) mg/dL Microbiology - Last 24 Hours (Table) 01/17/23 18:50 Blood Culture - Preliminary Blood Assessment and Plan (1) Urinary tract infection Current Visit: Yes Status: Acute Code(s): N39.0 - URINARY TRACT INFECTION, SITE NOT SPECIFIED SNOMED Code(s): 30328798 Plan: 1patient was in the hospital with sepsis in this patient who did have a fever elevated white count tachycardia did have significantly positive UA likely urinary source however the patient recently did have a tooth extraction and the patient has been complaining of some pain to the lower jaw a possible component of dental infection did not exclude 2-patient with renal insufficiency high risk of nephrotoxicity ultrasound did not mention any hydronephrosis no bilateral nonshadowing renal stone 3Patient to continue with Unasyn while waiting for the cultures to finalize Dictation was produced using dragon dictation software. please excuse any grammatical, word or spelling errors. Time with Patient: Greater than 30
--- NOTE | 2023-01-20 14:28 | P.PN ---
Subjective Progress Note Date: 01/20/23 Principal diagnosis: Reason for follow-up is sepsis and UTI question of dental infection Patient is a 47-year-old female with a past medical history significant for reflux seizure disorder patient recently have a tooth extraction as the patient has been brought to the hospital for evaluation of seizure, patient also spiked a fever did have a positive UA concerning for urinary tract infection On today's evaluation that is 01/20/2023, the patient is afebrile this morning and is breathing comfortably on room air, and patient denies any shortness of breath, chest pain and no cough or sputum production, patient denies abdominal pain, complaining of some nausea but no vomiting and no diarrhea since coming of some pain with the left lower jaw area Patient white count has normalized to 7.51, creatinine 0.7 cultures currently pending Objective - Vital Signs Vital signs: Vital Signs Temp 98.4 F 01/20/23 07:08 Pulse 64 01/20/23 07:08 Resp 16 01/20/23 07:08 BP 117/65 01/20/23 07:08 Pulse Ox 96 01/20/23 07:08 FiO2 Intake & Output 01/19/23 01/20/23 01/20/23 18:59 06:59 18:59 Intake Total 1800 310 Balance 1800 310 Intake: Intake, IV Titration 1800 Amount ACETAMINOPHEN IV (For NPO 100 ) 1,000 mg In Empty Bag 1 bag @ 400 mls/hr IVPB Q6H [facility] Rx#:[id number] Ampicillin-Sulbactam 3 gm 200 In Sodium Chloride 0.9% 100 ml @ 200 mls/hr IVPB Q6H [facility] Rx#:[id number] Sodium Chloride 0.9% 1, 1200 000 ml @ 100 mls/hr IV . Q10H [facility] Rx#:[id number] Sodium Ferric Gluconat- 100 Sucrose 125 mg In Sodium Chloride 0.9% 100 ml @ 100 mls/hr IVPB DAILY [facility] Rx#:[id number] Valproate Sodium 250 mg 200 In Sodium Chloride 0.9% 100 ml @ 100 mls/hr IVPB Q6HR [facility] Rx#:[id number] Blood Product 0 310 Rc Irr As1 Unit 0 310 [id number] Other: Voiding Method Toilet # Voids 2 - Exam GENERAL DESCRIPTION: A middle-age female lying in bed in no distress RESPIRATORY SYSTEM: Unlabored breathing , clear to auscultation anteriorly HEART: S1 S2 regular rate and rhythm , ABDOMEN: Soft , no tenderness EXTREMITIES: No edema feet - Labs CBC & Chem 7: 01/20/23 06:45 01/20/23 06:45 Labs: Abnormal Lab Results - Last 24 Hours (Table) 01/19/23 01/19/23 01/19/23 Range/Units 07:00 12:21 13:23 WBC 11.4 H (3.8-10.6) k/uL RBC 2.94 L (3.80-5.40) m/uL Hgb 7.2 L (11.4-16.0) gm/dL Hct 23.3 L (34.0-46.0) % MCV 79.2 L (80.0-100.0) fL MCH 24.6 L (25.0-35.0) pg RDW 15.8 H (11.5-15.5) % C-Reactive Protein 35.5 H (<1.0) mg/dL Crossmatch See Detail Microbiology - Last 24 Hours (Table) 01/17/23 18:50 Blood Culture - Preliminary Blood Assessment and Plan (1) Urinary tract infection Current Visit: Yes Status: Acute Code(s): N39.0 - URINARY TRACT INFECTION, SITE NOT SPECIFIED SNOMED Code(s): 46287854 Plan: 1patient was in the hospital with sepsis in this patient who did have a fever elevated white count tachycardia did have significantly positive UA likely urinary source however the patient recently did have a tooth extraction and the patient has been complaining of some pain to the lower jaw a possible component of dental infection did not exclude 2-patient did have some clinical improvement with resolution of the fever and white count has normalized 3patient will continue with Unasyn while waiting for the cultures to finalize Dictation was produced using [employer] dictation software. please excuse any grammatical, word or spelling errors. Time with Patient: Less than 30
--- NOTE | 2023-01-20 14:30 | P.PN ---
Subjective Progress Note Date: 01/20/23 I am following-up with patient and she states she is doing better today compared to yesterday. No further seizures. Objective - Vital Signs Vital signs: Vital Signs Temp 98.4 F 01/20/23 07:08 Pulse 64 01/20/23 07:08 Resp 16 01/20/23 07:08 BP 117/65 01/20/23 07:08 Pulse Ox 96 01/20/23 07:08 FiO2 Intake & Output 01/19/23 01/20/23 01/20/23 18:59 06:59 18:59 Intake Total 1800 310 Balance 1800 310 Intake: Intake, IV Titration 1800 Amount ACETAMINOPHEN IV (For NPO 100 ) 1,000 mg In Empty Bag 1 bag @ 400 mls/hr IVPB Q6H [facility] Rx#:[id number] Ampicillin-Sulbactam 3 gm 200 In Sodium Chloride 0.9% 100 ml @ 200 mls/hr IVPB Q6H [facility] Rx#:[id number] Sodium Chloride 0.9% 1, 1200 000 ml @ 100 mls/hr IV . Q10H [facility] Rx#:[id number] Sodium Ferric Gluconat- 100 Sucrose 125 mg In Sodium Chloride 0.9% 100 ml @ 100 mls/hr IVPB DAILY [facility] Rx#:[id number] Valproate Sodium 250 mg 200 In Sodium Chloride 0.9% 100 ml @ 100 mls/hr IVPB Q6HR [facility] Rx#:[id number] Blood Product 0 310 Rc Irr As1 Unit 0 310 [id number] Other: Voiding Method Toilet # Voids 2 - Exam General is lying in bed and appears in mild acute distress Neuro- The patient is awake, alert, oriented to self, place. Is following simple commands. No aphasia or neglect. Pupils are round, equal and reactive to light. No facial droop. No dysarthria. Motor: Moving all extremities above gravity. Some of the workup during his hospital visit consisted of: White blood cell is 25.4 thousand, predominantly neutrophilic.--resolved. Lactic acid is 2.4. Sodium is 133 at. BUN is 50 and neck creatinine is 3.57. He. Creatinine is 1.14. Her hemoglobin is trending down on presentation was 8.3 currently is 6.9 today and the repeated today was 7.2. CRP is 35.5--18.6 Urinalysis seems suggestive of underlying acute urinary tract infection. Valproic acid level is 57.[address] of the head is reported as no acute intracranial process. Routine EEG is abnormal. The background slowing is suggestive of mild encephalopathy. Excessive beta activities due to medication effect(Ativan). There is no focal slowing, perform discharges or seizure in the EEG. Blood culture is no grow after 48 hours. - Labs CBC & Chem 7: 01/20/23 06:45 01/20/23 06:45 Labs: Abnormal Lab Results - Last 24 Hours (Table) 01/19/23 01/20/23 01/20/23 Range/Units 13:23 06:45 06:45 RBC 3.07 L (4.10-5.20) X 10*6/uL Hgb 7.6 L (12.0-15.0) g/dL Hct 24.0 L (37.2-46.3) % MCV 78.2 L (80.0-97.0) FL MCH 24.8 L (27.0-32.0) pg MCHC 31.7 L (32.0-37.0) g/dL RDW 15.8 H (11.5-14.5) % MPV 9.2 L (9.5-12.2) FL Calcium 7.5 L (8.7-10.3) mg/dL C-Reactive Protein 18.60 H (0.00-0.80) mg/dL Crossmatch See Detail Microbiology - Last 24 Hours (Table) 01/17/23 18:50 Blood Culture - Preliminary Blood Assessment and Plan Assessment: This is a 47-year-old woman who presented with department because of seizure. She states that she had her tubes worked on this past and then the next day she felt she had a tooth infected and she was having nausea vomiting and as a result she was not taking her antiepileptic drugs. As she was having seizure as a result. Breakthrough seizure. Seems provoke since she was having nausea vomiting as well as a seems that she has a probable acute UTI. Also possible tooth infection. No further seizure History of seizures and she had a prolonged EEG on 04/05/2022 (2.5 hours) was reported as normal Probable acute UTI. Acute Kidney insufficiency--trending down Anemia. History of medication noncompliance History of abscess boil in the lower back History of gastric bypass in 2018 History of cellulitis in the right thigh Chronic depression/anxiety History of marijuana use Plan: Patient is restarted on her home medication of Vimpat 100 mg 1 tablet 4 times a day as well as Depakote 500 mg twice a day. The medication has been changed to IV because of her vomiting episodes. She cannot handle Keppra since she feels increases the frequency of seizures. Once, no further vomiting change to P.O. Seizure precautions seizure pads Pending Vimpat level Nephrology is consulted ID is on board. We'll defer the rest of the medical management to primary team On discharge the patient needs to follow-up with her neurologist as an out patient Dr. Galeano within 2-3 weeks. Plan discussed with the patient and primary attending. Will follow-up sporadically. Time with Patient: Less than 30
[2023-01-21] MEDS: VALPROATE SODIUM 250 MG in SODIUM CHLORIDE 0.9% 100 ML IVPB SCH ×4 (00:17→18:33)
[2023-01-21] MEDS: AMPICILLIN-SULBACTAM 3 GM in SODIUM CHLORIDE 0.9% 100 ML IVPB SCH ×4 (04:22→23:40)
[2023-01-21] MEDS: ACETAMINOPHEN TAB 325 MG TAB PO PRN ×3 (04:22→20:41)
[2023-01-21] MEDS: Lacosamide IV (ages 17+ yrs) 200 MG/20 ML ML IVP SCH ×4 (04:22→21:03)
[2023-01-21] MEDS: ONDANSETRON 4 MG/2 ML VIAL IVP PRN ×2 (06:49→19:16)
[2023-01-21] MEDS: FERROUS SULFATE 325 MG TAB PO SCH ×2 (08:12→18:34)
[2023-01-21] MEDS: HYDROcodone/APAP 5-325MG 1 EACH TAB PO PRN ×2 (08:12→20:40)
[2023-01-21 08:41] LABS: HCT 25.3 % (37.2-46.3); HGB 7.8 g/dL (12.0-15.0); MCH 24.3 pg (27.0-32.0); MCHC 30.8 g/dL (32.0-37.0); MCV 78.8 FL (80.0-97.0); NRBC Per 100 WBC 0 X 10*3/uL (0.00-0.01); Platelet Count 270 X 10*3/uL (140-440); RBC 3.21 X 10*6/uL (4.10-5.20); RDW 15.9 % (11.5-14.5); WBC 7.85 X 10*3/uL (4.50-10.00)
[2023-01-21] MEDS: SODIUM FERRIC GLUCONAT-SUCROSE 125 MG in SODIUM CHLORIDE 0.9% 100 ML IVPB SCH (09:11)
[2023-01-21 09:12] LABS: BUN/Creat Ratio 10.29 Ratio (12.00-20.00); Blood Urea Nitrogen 7.2 mg/dL (9.0-27.0); Calcium 7.8 mg/dL (8.7-10.3); Carbon Dioxide 23.6 mmol/L (21.6-31.8); Chloride 107 mmol/L (96-109); Glucose 104 mg/dL (70-110); Potassium 3.7 mmol/L (3.5-5.5); Sodium 141 mmol/L (135-145)
[2023-01-21] MEDS: SODIUM CHLORIDE 0.9% 1,000 ML IV SCH (09:12)
--- NOTE | 2023-01-21 10:33 | P.OBCN ---
History of Present Illness Consult date: 01/21/23 Reason for consult: menorrhagia, pelvic prolapse History of present illness: The patient is a 47-year-old 1 para 0101 who was initially admitted several days ago for significantly increased seizure activity. While in the hospital, she has been found to be significantly anemic and required so far 1 unit of packed red blood cells and is currently receiving and iron infusion. She reports that she does continue to have significant dizziness when she gets out of bed and is therefore relatively bedbound at this time. From a gynecologi c perspective, she reports that her cycles have been irregular for some time and actually historically are irregular as she has PCOS. Normally cycles are not overly heavy and last for only 3 or so days. This current episode of bleeding began approximately 6 days ago and has been moderately to significantly heavy per the patient. She does also have significant hot flashes and night sweats. Her has a vasectomy in place for contraception. She does have regular gynecologic care through a primary care doctor who has reportedly done regular Pap smears as well as mammograms which have all been normal. Her primary care doctor did report revealed that she has some degree of uterine prolapse. Obstetrical history: 1 para 0101 with a 36 week normal vaginal delivery years ago. As noted above, current method of contraception is vasectomy along with perimenopause. Gynecologic history: Unremarkable except as relates to history of present illness. Review of Systems Review of systems is confined to history of present illness. Past Medical History Past Medical History: GERD/Reflux, Seizure Disorder Additional Past Medical History / Comment(s): Hx of migraines, elevated HR, one seizure/unknown cause 2016; "Severe reflux, awakening in noc w/ choking since gastric sleeve surgery." History of Any Multi-Drug Resistant Organisms: MRSA Year Discovered:: 08/30/20 MDRO Source:: Right Thigh Past Surgical History: Bariatric Surgery, Cholecystectomy, Orthopedic Surgery Additional Past Surgical History / Comment(s): lap band 2009, gastic sleeve 04/03; EGD; IVF; metatarsus abduction/age 6; Past Anesthesia/Blood Transfusion Reactions: No Reported Reaction, Motion Sickness, Postoperative Nausea & Vomiting (PONV) Additional Past Anesthesia/Blood Transfusion Reaction / Comm: no hx of blood transfusion Past Psychological History: Anxiety, Depression Smoking Status: Never smoker Past Alcohol Use History: None Reported Additional Past Alcohol Use History / Comment(s): Smoked as teen for few years on/off Past Drug Use History: None Reported Additional Drug Use History / Comment(s): Rare use. - Past Family History Mother Family Medical History: Cancer, Hypertension Additional Family Medical History / Comment(s): Breast CA Brother(s) Family Medical History: No Reported History Father History Unknown: Yes Additional Family Medical History / Comment(s): father of suicide . Medications and Allergies Home Medications Medication Instructions Recorded Confirmed Type HYDROcodone/APAP 5-325MG [[place] 1 tab PO BID PRN 06/19/22 01/17/23 History 5-325] Acetaminophen Tab [Tylenol Tab] 500 mg PO Q8H PRN 01/17/23 01/17/23 History Divalproex Sodium [Depakote] 500 mg PO BID@1000,2200 01/17/23 01/17/23 History Ibuprofen [Motrin] 800 mg PO Q8H PRN 01/17/23 01/17/23 History Lacosamide [Vimpat] 100 mg PO QID@04,10,16,22 01/17/23 01/17/23 History Allergies Allergy/AdvReac Type Severity Reaction Status Date / Time aspirin AdvReac see comment Verified 01/17/23 15:29 ibuprofen [From Motrin] AdvReac see comment Verified 01/17/23 15:29 levetiracetam [From Keppra] AdvReac Seizures Verified 01/17/23 15:29 Exam Vital Signs Temp Pulse Resp BP Pulse Ox 01/21/23 07:38 98.2 F 73 17 113/70 95 01/21/23 01:40 98.0 F 68 15 120/73 98 01/20/23 19:13 98.1 F 68 16 116/76 98 01/20/23 14:20 98 F 76 16 129/80 97 Intake and Output 01/20/23 01/21/23 01/21/23 22:59 06:59 14:59 Intake Total 222 Balance 222 Intake: Oral 222 Other: Voiding Method Toilet # Voids 1 1 # Bowel Movements 1 In general, this is a well-developed, well-nourished white female in no acute distress. Her abdomen is nondistended, soft, nontender, without any palpable masses. Her extremities are without any cyanosis, clubbing, or edema and are nontender to palpation bilaterally. Bimanual pelvic examination done traits normal external genitalia and BUS with normal vaginal mucosa and cervix. The uterus is approximate 5 weeks in size, midplane to slightly anteverted, mobile, nontender, normal in shape. I do not appreciate a great deal of pelvic organ prolapse. The adnexa are normal and nontender without any apparent masses bilaterally. There is minimal blood on my examination glove after examination. Results Result Diagrams: 01/21/23 05:21 01/21/23 05:21 Abnormal Lab Results - Last 24 Hours (Table) 01/20/23 01/20/23 01/21/23 Range/Units 06:45 06:45 05:21 RBC 3.07 L 3.21 L (4.10-5.20) X 10*6/uL Hgb 7.6 L 7.8 L (12.0-15.0) g/dL Hct 24.0 L 25.3 L (37.2-46.3) % MCV 78.2 L 78.8 L (80.0-97.0) FL MCH 24.8 L 24.3 L (27.0-32.0) pg MCHC 31.7 L 30.8 L (32.0-37.0) g/dL RDW 15.8 H 15.9 H (11.5-14.5) % MPV 9.2 L 9.0 L (9.5-12.2) FL BUN (9.0-27.0) mg/dL BUN/Creatinine Ratio (12.00-20.00) Ratio Calcium 7.5 L (8.7-10.3) mg/dL C-Reactive Protein 18.60 H (0.00-0.80) mg/dL 01/21/23 Range/Units 05:21 RBC (4.10-5.20) X 10*6/uL Hgb (12.0-15.0) g/dL Hct (37.2-46.3) % MCV (80.0-97.0) FL MCH (27.0-32.0) pg MCHC (32.0-37.0) g/dL RDW (11.5-14.5) % MPV (9.5-12.2) FL BUN 7.2 L (9.0-27.0) mg/dL BUN/Creatinine Ratio 10.29 L (12.00-20.00) Ratio Calcium 7.8 L (8.7-10.3) mg/dL C-Reactive Protein 12.80 H (0.00-0.80) mg/dL Microbiology - Last 24 Hours (Table) 01/17/23 18:50 Blood Culture - Preliminary Blood Assessment and Plan (1) Dysfunctional uterine bleeding Current Visit: Yes Status: Acute Code(s): N93.8 - OTHER SPECIFIED ABNORMAL UTERINE AND VAGINAL BLEEDING SNOMED Code(s): 13947205558242 Plan: The patient's bleeding pattern and symptomatology are entirely consistent with perimenopause. I discussed the natural history of perimenopause with the patient. I have also discussed a number of different potential options for ongoing treatment. It appears that, at this time, her bleeding has stopped which is consistent with what might be expected in the perimenopause. As such, I don't feel that any intervention is necessary at this time. Should her bleeding significantly increase, tranexamic acid could be used to manage acute heavy bleeding as she does not have any apparent issues with clotting disorders. Historically, she has not done well in the past on oral contraceptive pills as they led to a significant increase in migraine headaches, but this could also be entertained. A better option for this patient might be the use of a progestational IUD such as Mirena or Kyleena but would require outpatient follow-up for placement. I additionally discussed that if she has significant symptoms from uterine prolapse, hysterectomy could even be entertained. To summarize, at this time I do not feel any intervention is needed as her bleeding appears to have stopped. I do feel there is consideration for transfusion of another unit of packed red blood cells given her orthostatic symptoms. It would also be reasonable to use SCDs to decrease the risk for DVT as she is relatively bedbound at this time. Thank you for the consult and I will sign off the case at this time unless further gynecologic input as necessary.
--- NOTE | 2023-01-21 11:19 | FL ---
EXAMINATION TYPE: FL UGI w KUB DATE OF EXAM: 01/21/2023 COMPARISON: 11/29/2019 HISTORY: Dysphasia TECHNIQUE: A single contrast UGI study is performed. A total of 49 seconds of fluoroscopic time was utilized during procedure and 10 images obtained. Total dose area product (DAP) in uGy*m?, mGy*cm? ( or similar): Could not be determined within the room performed.. FINDINGS: Notcher image of the abdomen shows no gross abnormality. The esophagus shows normal motility and emptying into the stomach. No evidence of hiatal hernia or s tricture noted. There is irregularity at the level of the GE junction small protuberance extending co uld represent a small diverticulum although erosion or ulcer not excluded recommend direct visualizat ion. Limited assessment of stomach and proximal duodenum demonstrates no gross abnormality. No significan t gastroesophageal reflux was seen during real time performance of this study. Surgical clips gallbla dder fossa. IMPRESSION: 1. No evidence of contrast extravasation or obstruction. Irregularity is also GE junction recommend d irect visualization.
--- NOTE | 2023-01-21 12:19 | P.PN ---
Subjective Progress Note Date: 01/21/23 * 47-year-old patient with past medical history significant for seizure disorder, migraine headaches, anxiety, depression, history of morbid obesity with gastric bypass, previous history of cellulitis secondary to MRSA, presented to the emergency department brought in by EMS after her called and patient had multiple episodes of severe seizures. Patient had a seizure on her way to the ER and was given 5 mg of Versed. At the time of presentation patient was obtunded and history was obtained from patient had similar presentation when she was admitted in March 2022 and left AGAINST MEDICAL ADVICE then. Patient was seen by neurology at that time * Workup initiated in ER included CBC which were WBC of 25.4 hemoglobin of 8.3 hematocrit of 26.9 platelet count of 347 * Serum chemistry obtained in ER showed sodium of 133, potassium of 5.8, serum bicarbonate 18, BU and 50 creatinine 3.57 lactate of 2.4, AST of 41 ALT 18 * Urinalysis obtained showed cloudy urine, WBC of 182, many bacteria, leukocyte esterase large, serum valproic acid levels 57.2 a sitter mindful less than 10 * CT head obtained in ER negative for acute intracranial process * Patient was given IV fluids normal saline, patient was given 1 dose of Toradol in ED, started on IV Rocephin * patient admitted to medical floor with consultations to be obtained from neurology, nephrology and infectious disease * 01/19/2023: Patient seen and evaluated bedside, patient is alert and oriented 3, sleeping easily arousable, at bedside. Noted to have WBC count of 12.3, hemoglobin 6.9, platelet count of 277, serum chemistry sodium 135 creatinine 1.14 previously creatinine was 3.04. Continue patient on fluid resuscitation, patient had poor IV access requiring a midline, does have severe iron deficiency anemia lactate levels within normal limits, CRP 35.5 appreciate input from infectious disease, neurology, nephrology. Patient to be transfused 1 unit of packed RBC * 01/20/2023: Patient seen and evaluated bedside, patient is alert and oriented 3, patient does complain of nausea, vision has been seizure free, continue patient on IV hydration, CRP levels improving, patient has been afebrile. Blood cultures collected as well continue IV Unasyn * 01/21/2023: Patient seen and evaluated bedside, patient has been having recurrent nausea, vomiting and retrosternal discomfort, patient does have history of gastric sleeve, x-ray KUB negative for any perforation. Will consult general surgery, patient has follow-up with , she does have history of menorrhagia, requested PASSPORT SUPPORT ASSOCIATE input 8 CBC shows WBC count of 7.8, hemoglobin 7.8, dated count of 270 CRP trending down 12.8 from 18.6 REVIEW OF SYSTEMS: Recurrent seizures resolved, altered mental status on admissi on improved, nausea CONSTITUTIONAL: No fever, no malaise, no fatigue. HEENT: No recent visual problems or hearing problems. Denied any sore throat. CARDIOVASCULAR: No chest pain, orthopnea, PND, no palpitations, no syncope. PULMONARY: No shortness of breath, no cough, no hemoptysis. GASTROINTESTINAL:Recurrent seizures resolved, altered mental status on admission improved, nausea NEUROLOGICAL: No headaches, no weakness, no numbness. HEMATOLOGICAL: Denies any bleeding or petechiae. GENITOURINARY: Denies any burning micturition, frequency, or urgency. MUSCULOSKELETAL/RHEUMATOLOGICAL: Denies any joint pain, swelling, or any muscle pain. ENDOCRINE: Denies any polyuria or polydipsia. PHYSICAL EXAMINATION: GENERAL: The patient is alert and oriented x3, ill appearance, toxic appearance, pale appearance HEENT: Pupils are round and equally reacting to light. EOMI. No scleral icterus. CARDIOVASCULAR: S1 and S2 present. No murmurs, rubs, or gallops. PULMONARY: Chest is clear to auscultation, no wheezing or crackles. ABDOMEN: Soft, nontender, nondistended, normoactive bowel sounds. No palpable organomegaly. MUSCULOSKELETAL: No joint swelling or deformity. EXTREMITIES: No cyanosis, clubbing, or pedal edema. NEUROLOGICAL: Gross neurological examination did not reveal any focal deficits. Objective - Vital Signs Vital signs: Vital Signs Temp 98.2 F 01/21/23 07:38 Pulse 73 01/21/23 07:38 Resp 17 01/21/23 07:38 BP 113/70 01/21/23 07:38 Pulse Ox 95 01/21/23 07:38 FiO2 Intake & Output 01/20/23 01/21/23 01/21/23 18:59 06:59 18:59 Intake Total 222 Balance 222 Intake: Oral 222 Other: Voiding Method Toilet Toilet Toilet # Voids 1 1 # Bowel Movements 1 - Labs CBC & Chem 7: 01/21/23 05:21 01/21/23 05:21 Labs: Abnormal Lab Results - Last 24 Hours (Table) 01/21/23 01/21/23 Range/Units 05:21 05:21 RBC 3.21 L (4.10-5.20) X 10*6/uL Hgb 7.8 L (12.0-15.0) g/dL Hct 25.3 L (37.2-46.3) % MCV 78.8 L (80.0-97.0) FL MCH 24.3 L (27.0-32.0) pg MCHC 30.8 L (32.0-37.0) g/dL RDW 15.9 H (11.5-14.5) % MPV 9.0 L (9.5-12.2) FL BUN 7.2 L (9.0-27.0) mg/dL BUN/Creatinine Ratio 10.29 L (12.00-20.00) Ratio Calcium 7.8 L (8.7-10.3) mg/dL C-Reactive Protein 12.80 H (0.00-0.80) mg/dL Microbiology - Last 24 Hours (Table) 01/17/23 18:50 Blood Culture - Preliminary Blood Assessment and Plan Assessment: Assessment and plan * History of seizure disorder with breakthrough seizures * Acute renal failure * Urinary tract infection * Severe sepsis from UTI * Retrosternal pain with recurrent nausea vomiting/history of gastric sleeve * Acute hyperkalemia resolved * Metabolic acidosis from renal failure/sepsis * Iron deficiency anemia * In regards to breakthrough seizure, CT head obtained which was negative for acute intracranial process, neurology consulted, continue IV Vimpat, continue valproic acid IV, will transition to home oral regimen once nausea improves * Regards to acute renal failure, continue patient on IV fluid, follow up on renal functions, nephrology consulted renal ultrasound ordered shows bilateral echogenic foci, renal stones noted without hydronephrosis * In regards to postprandial nausea and vomiting and retrosternal pain, history of gastric sleeve , we'll consult general surgery patient primary surgeon * In regards to hyperkalemia, resolved * In regards to severe sepsis continue patient on fluid resuscitation, blood cultures ordered, urine cultures ordered infectious disease consulted. Continue IV Unasyn day 3 * In regards to iron deficiency anemia , patient given 1 unit of packed RBC 01/19 continue IV iron replacement * Consultations obtained from neurology, infectious disease and nephrology, PASSPORT SUPPORT ASSOCIATE and general surgery * CODE STATUS is full code Time with Patient: Greater than 30
--- NOTE | 2023-01-21 14:24 | P.GSCN ---
History of Present Illness Consult date: 01/21/23 History of present illness: CHIEF COMPLAINT: Seizures HISTORY OF PRESENT ILLNESS: This is a 47-year-old female presented to the hospital with complaints of seizures. She is followed by neurology. Since her hospitalization she's had no further seizures. However, patient has been having vomiting for about 6 days. She reports having about 2 episodes of vomiting per day. This morning she tried to eat oatmeal and then vomited. She does have a history of lap band and then sleep gastrectomy in 2007. She reports abdominal pain after the vomiting. She's had a few streaks of blood in her emesis. Patient did require 1 unit of blood for hemoglobin of 7.9 during this admission. She had upper GI completed that did show an irregularity at the GE junction and they recommended direct visualization of the area. Surgical consult placed for history of sleeve and recurrent postprandial vomiting. PAST MEDICAL HISTORY: See below PAST SURGICAL HISTORY: See below MEDICATIONS: See below ALLERGIES: See below SOCIAL HISTORY: No illicit drug use. REVIEW OF SYSTEMS: CONSTITUTIONAL: Denies fever or chills. HEENT: Denies blurred vision, vision changes, or eye pain. Denies hemoptysis CARDIOVASCULAR: Denies chest pain or pressure. RESPIRATORY: No shortness of breath. GASTROINTESTINAL: See HPI for pertinent findings HEMATOLOGIC: Denies bleeding disorders. GENITOURINARY: Denies any blood in urine or increased urinary frequency. SKIN: Denies pruitis. Denies rash. PHYSICAL EXAM: VITAL SIGNS: Reviewed GENERAL: Well-developed in no acute distress. ABDOMEN: Soft. Nondistended. Nontender NEUROLOGIC: Alert and oriented. Cranial nerves II through XII grossly intact. LABORATORY DATA: WBC 7.85 Hgb lowest at 6.9 today 7.8 platelets 270 Sodium is 141 potassium 3.7 creatinine 0.7 IMAGING: Upper GI no evidence of contrast extravasation or obstruction. Irregularity is at the GE junction recommended direct visualization ASSESSMENT: 1. Vomiting 2. Irregularity at GE junction noted on upper GI 3. History of sleeve gastrectomy 4. Anemia PLAN: -Patient scheduled for EGD with Dr. escalona on Tuesday -Downgrade diet to bariatric full liquids -Add IV Protonix twice a day -Continue to monitor hemoglobin Physician Manager Employee Relations note has been reviewed by physician. Signing provider agrees with the documented findings, assessment, and plan of care. Past Medical History Past Medical History: GERD/Reflux, Seizure Disorder Additional Past Medical History / Comment(s): Hx of migraines, elevated HR, one seizure/unknown cause 2016; "Severe reflux, awakening in noc w/ choking since gastric sleeve surgery." History of Any Multi-Drug Resistant Organisms: MRSA Year Discovered:: 08/30/20 MDRO Source:: Right Thigh Past Surgical History: Bariatric Surgery, Cholecystectomy, Orthopedic Surgery Additional Past Surgical History / Comment(s): lap band 2009, gastic sleeve 04/03; EGD; IVF; metatarsus abduction/age 6; Past Anesthesia/Blood Transfusion Reactions: No Reported Reaction, Motion Sickness, Postoperative Nausea & Vomiting (PONV) Additional Past Anesthesia/Blood Transfusion Reaction / Comm: no hx of blood transfusion Past Psychological History: Anxiety, Depression Smoking Status: Never smoker Past Alcohol Use History: None Reported Additional Past Alcohol Use History / Comment(s): Smoked as teen for few years on/off Past Drug Use History: None Reported Additional Drug Use History / Comment(s): Rare use. - Past Family History Mother Family Medical History: Cancer, Hypertension Additional Family Medical History / Comment(s): Breast CA Brother(s) Family Medical History: No Reported History Father History Unknown: Yes Additional Family Medical History / Comment(s): father of suicide . Medications and Allergies Home Medications Medication Instructions Recorded Confirmed Type HYDROcodone/APAP 5-325MG [[place] 1 tab PO BID PRN 06/19/22 01/17/23 History 5-325] Acetaminophen Tab [Tylenol Tab] 500 mg PO Q8H PRN 01/17/23 01/17/23 History Divalproex Sodium [Depakote] 500 mg PO BID@1000,2200 01/17/23 01/17/23 History Ibuprofen [Motrin] 800 mg PO Q8H PRN 01/17/23 01/17/23 History Lacosamide [Vimpat] 100 mg PO QID@04,10,16,22 01/17/23 01/17/23 History Allergies Allergy/AdvReac Type Severity Reaction Status Date / Time aspirin AdvReac see comment Verified 01/17/23 15:29 ibuprofen [From Motrin] AdvReac see comment Verified 01/17/23 15:29 levetiracetam [From Keppra] AdvReac Seizures Verified 01/17/23 15:29 Surgical - Exam Vital Signs Temp Pulse Resp BP Pulse Ox 98 F 101 H 18 89/59 100 01/17/23 14:47 01/17/23 14:47 01/17/23 14:47 01/17/23 14:47 01/17/23 14:47 Results - Labs 01/21/23 05:21 01/21/23 05:21 Abnormal Lab Results - Last 24 Hours (Table) 01/21/23 01/21/23 Range/Units 05:21 05:21 RBC 3.21 L (4.10-5.20) X 10*6/uL Hgb 7.8 L (12.0-15.0) g/dL Hct 25.3 L (37.2-46.3) % MCV 78.8 L (80.0-97.0) FL MCH 24.3 L (27.0-32.0) pg MCHC 30.8 L (32.0-37.0) g/dL RDW 15.9 H (11.5-14.5) % MPV 9.0 L (9.5-12.2) FL BUN 7.2 L (9.0-27.0) mg/dL BUN/Creatinine Ratio 10.29 L (12.00-20.00) Ratio Calcium 7.8 L (8.7-10.3) mg/dL C-Reactive Protein 12.80 H (0.00-0.80) mg/dL Microbiology - Last 24 Hours (Table) 01/17/23 18:50 Blood Culture - Preliminary Blood Diabetes panel 01/21/23 Range/Units 05:21 Sodium 141 (135-145) mmol/L Potassium 3.7 (3.5-5.5) mmol/L Chloride 107 (96-109) mmol/L Carbon Dioxide 23.6 (21.6-31.8) mmol/L BUN 7.2 L (9.0-27.0) mg/dL Creatinine 0.7 (0.6-1.5) mg/dL Glucose 104 (70-110) mg/dL Calcium 7.8 L (8.7-10.3) mg/dL Calcium panel 01/21/23 Range/Units 05:21 Calcium 7.8 L (8.7-10.3) mg/dL Pituitary panel 01/21/23 Range/Units 05:21 Sodium 141 (135-145) mmol/L Potassium 3.7 (3.5-5.5) mmol/L Chloride 107 (96-109) mmol/L Carbon Dioxide 23.6 (21.6-31.8) mmol/L BUN 7.2 L (9.0-27.0) mg/dL Creatinine 0.7 (0.6-1.5) mg/dL Glucose 104 (70-110) mg/dL Calcium 7.8 L (8.7-10.3) mg/dL Adrenal panel 01/21/23 Range/Units 05:21 Sodium 141 (135-145) mmol/L Potassium 3.7 (3.5-5.5) mmol/L Chloride 107 (96-109) mmol/L Carbon Dioxide 23.6 (21.6-31.8) mmol/L BUN 7.2 L (9.0-27.0) mg/dL Creatinine 0.7 (0.6-1.5) mg/dL Glucose 104 (70-110) mg/dL Calcium 7.8 L (8.7-10.3) mg/dL
[2023-01-21] MEDS: PANTOPRAZOLE 40 MG/10 ML VIAL IVP SCH (20:52)
[2023-01-21] MEDS: LORazepam 2 MG/ML INJ IV PRN (22:29)
[2023-01-22] MEDS: VALPROATE SODIUM 250 MG in SODIUM CHLORIDE 0.9% 100 ML IVPB SCH ×2 (00:49→08:12)
[2023-01-22] MEDS: SODIUM CHLORIDE 0.9% 1,000 ML IV SCH ×2 (06:10→18:23)
[2023-01-22] MEDS: FERROUS SULFATE 325 MG TAB PO SCH ×2 (08:12→17:15)
[2023-01-22] MEDS: PANTOPRAZOLE 40 MG/10 ML VIAL IVP SCH ×2 (08:12→21:21)
[2023-01-22] MEDS: Lacosamide IV (ages 17+ yrs) 200 MG/20 ML ML IVP SCH ×2 (08:12→10:04)
[2023-01-22] MEDS: HYDROcodone/APAP 5-325MG 1 EACH TAB PO PRN ×2 (08:14→21:08)
[2023-01-22] MEDS: AMPICILLIN-SULBACTAM 3 GM in SODIUM CHLORIDE 0.9% 100 ML IVPB SCH (08:28)
[2023-01-22] MEDS ORDERED: AMPICILLIN-SULBACTAM 3 GM in SODIUM CHLORIDE 0.9% 100 ML IVPB SCH (09:00)
[2023-01-22 09:18] LABS: BUN/Creat Ratio 7.33 Ratio (12.00-20.00); Blood Urea Nitrogen 4.4 mg/dL (9.0-27.0); Glucose 79 mg/dL (70-110)
[2023-01-22 09:19] LABS: Calcium 7.8 mg/dL (8.7-10.3); Carbon Dioxide 26.2 mmol/L (21.6-31.8); Chloride 105 mmol/L (96-109); Potassium 3.3 mmol/L (3.5-5.5); Sodium 140 mmol/L (135-145)
[2023-01-22] MEDS ORDERED: AMOXIC-POT CLAV 875-125MG 1 EACH TAB PO STA (10:07)
[2023-01-22] MEDS ORDERED: diazePAM 5 MG TAB PO STA (10:09)
[2023-01-22 10:16] LABS: HCT 24.9 % (37.2-46.3); HGB 7.5 g/dL (12.0-15.0); MCH 23.9 pg (27.0-32.0); MCHC 30.1 g/dL (32.0-37.0); MCV 79.3 FL (80.0-97.0); Mean Platelet Volume 8.9 FL (9.5-12.2); NRBC Per 100 WBC 0.02 X 10*3/uL (0.00-0.01); Platelet Count 273 X 10*3/uL (140-440); RBC 3.14 X 10*6/uL (4.10-5.20); RDW 16.3 % (11.5-14.5); WBC 9.03 X 10*3/uL (4.50-10.00)
[2023-01-22] MEDS: CHOLESTYRAMINE (WITH SUGAR) 4 GM PACKET PO SCH ×2 (10:18→17:15)
[2023-01-22] MEDS: SODIUM FERRIC GLUCONAT-SUCROSE 125 MG in SODIUM CHLORIDE 0.9% 100 ML IVPB SCH (10:24)
--- NOTE | 2023-01-22 11:21 | P.PN ---
Subjective Progress Note Date: 01/22/23 NAEON. No N/V. No heartburn or reflux. No hematemesis. Tolerating CLD. Admits to flatus, but no BM. No F/C. No SOB or CP. Ambulatory and voiding. Objective - Vital Signs Vital signs: Vital Signs Temp 98.8 F 01/22/23 07:57 Pulse 59 L 01/22/23 07:57 Resp 18 01/22/23 07:57 BP 151/72 01/22/23 07:57 Pulse Ox 98 01/22/23 07:57 FiO2 Intake & Output 01/21/23 01/22/23 01/22/23 18:59 06:59 18:59 Other: Voiding Method Toilet Toilet Toilet # Voids 1 # Bowel Movements 1 - Exam Gen: AxO, NAD Pulm: non-labored respirations Abd: soft, non-tender, minimally distended, no guarding/rebound/rigidity Extrem: no edema seen - Labs CBC & Chem 7: 01/22/23 04:22 01/22/23 04:22 Labs: Abnormal Lab Results - Last 24 Hours (Table) 01/22/23 01/22/23 Range/Units 04:22 04:22 RBC 3.14 L (4.10-5.20) X 10*6/uL Hgb 7.5 L (12.0-15.0) g/dL Hct 24.9 L (37.2-46.3) % MCV 79.3 L (80.0-97.0) FL MCH 23.9 L (27.0-32.0) pg MCHC 30.1 L (32.0-37.0) g/dL RDW 16.3 H (11.5-14.5) % MPV 8.9 L (9.5-12.2) FL NRBC/100 WBC Diff 0.02 H (0.00-0.01) X 10*3/uL Potassium 3.3 L (3.5-5.5) mmol/L BUN 4.4 L (9.0-27.0) mg/dL BUN/Creatinine Ratio 7.33 L (12.00-20.00) Ratio Calcium 7.8 L (8.7-10.3) mg/dL Assessment and Plan Assessment: Patient is a 47 year old female with a PMH of sleeve gastrectomy in the past with GE junction abnormality seen on UGI Plan: -CLD -NPO at midnight on 01/23/23 -IVF hydration -PPI therapy -Trend HB -Plan for EGD on Tuesday: 01/24/23 Stephen Schaffer MD General Surgery
--- NOTE | 2023-01-22 12:08 | P.PN ---
Subjective Progress Note Date: 01/22/23 I am following-up with patient and no further nausea or vomiting. No further leukocystosis. Yesterday having low grade fever. Objective - Vital Signs Vital signs: Vital Signs Temp 98.8 F 01/22/23 07:57 Pulse 59 L 01/22/23 07:57 Resp 18 01/22/23 07:57 BP 151/72 01/22/23 07:57 Pulse Ox 98 01/22/23 07:57 FiO2 Intake & Output 01/21/23 01/22/23 01/22/23 18:59 06:59 18:59 Other: Voiding Method Toilet Toilet Toilet # Voids 1 # Bowel Movements 1 - Exam General is lying in bed and appears in mild acute distress Neuro- The patient is awake, alert, oriented to self, place. Is following simple commands. No aphasia or neglect. Pupils are round, equal and reactive to light. No facial droop. No dysarthria. Motor: Moving all extremities above gravity. Some of the workup during his hospital visit consisted of: White blood cell is 25.4 thousand, predominantly neutrophilic.--resolved. Lactic acid is 2.4. Sodium is 133 at. BUN is 50 and neck creatinine is 3.57. He. Creatinine is 1.14. Her hemoglobin is trending down on presentation was 8.3 currently is 6.9 today and the repeated today was 7.2. CRP is 35.5--18.6 Urinalysis seems suggestive of underlying acute urinary tract infection. Valproic acid level is 57.[address] of the head is reported as no acute intracranial process. Routine EEG is abnormal. The background slowing is suggestive of mild encephalopathy. Excessive beta activities due to medication effect(Ativan). There is no focal slowing, perform discharges or seizure in the EEG. Blood culture is no grow after 48 hours. - Labs CBC & Chem 7: 01/22/23 04:22 01/22/23 04:22 Labs: Abnormal Lab Results - Last 24 Hours (Table) 01/22/23 01/22/23 Range/Units 04:22 04:22 RBC 3.14 L (4.10-5.20) X 10*6/uL Hgb 7.5 L (12.0-15.0) g/dL Hct 24.9 L (37.2-46.3) % MCV 79.3 L (80.0-97.0) FL MCH 23.9 L (27.0-32.0) pg MCHC 30.1 L (32.0-37.0) g/dL RDW 16.3 H (11.5-14.5) % MPV 8.9 L (9.5-12.2) FL NRBC/100 WBC Diff 0.02 H (0.00-0.01) X 10*3/uL Potassium 3.3 L (3.5-5.5) mmol/L BUN 4.4 L (9.0-27.0) mg/dL BUN/Creatinine Ratio 7.33 L (12.00-20.00) Ratio Calcium 7.8 L (8.7-10.3) mg/dL Assessment and Plan Assessment: This is a 47-year-old woman who presented with department because of seizure. She states that she had her tubes worked on this past and then the next day she felt she had a tooth infected and she was having nausea vomiting and as a result she was not taking her antiepileptic drugs. As she was having seizure as a result. Breakthrough seizure. Seems provoke since she was having nausea vomiting as well as a seems that she has a probable acute UTI. Also possible tooth infection. No further seizure History of seizures and she had a prolonged EEG on 04/05/2022 (2.5 hours) was reported as normal Probable acute UTI. Acute Kidney insufficiency--trending down Anemia. History of medication noncompliance History of abscess boil in the lower back History of gastric bypass in 2018 History of cellulitis in the right thigh Chronic depression/anxiety History of marijuana use Plan: Patient is restarted on her home medication of Vimpat 100 mg 1 tablet 4 times a day as well as Depakote 500 mg twice a day. Recommend change her home medication back to PO since no further vomiting. She cannot handle Keppra since she feels increases the frequency of seizures. Once, no further vomiting change to P.O. Seizure precautions seizure pads Pending Vimpat level Nephrology is consulted ID is on board. We'll defer the rest of the medical management to primary team On discharge the patient needs to follow-up with her neurologist as an outpatient Dr. Galeano within 2-3 weeks. Plan discussed with the patient and primary attending. Will follow-up sporadically. Dr. Valdez will start neurology service on 01/24/23 A.M. Time with Patient: Less than 30
[2023-01-22] MEDS: LACOSAMIDE 50 MG TABLET PO SCH ×2 (17:15→21:05)
[2023-01-22] MEDS: AMOXIC-POT CLAV 500-125 MG 1 EACH TAB PO SCH (21:04)
[2023-01-22] MEDS: DIVALPROEX 500 MG TABLET.DR PO SCH (21:05)
[2023-01-23] MEDS: LACOSAMIDE 50 MG TABLET PO SCH ×4 (03:55→22:18)
[2023-01-23] MEDS: ACETAMINOPHEN TAB 325 MG TAB PO PRN (03:59)
[2023-01-23] MEDS: FERROUS SULFATE 325 MG TAB PO SCH ×2 (09:29→17:00)
[2023-01-23] MEDS: AMOXIC-POT CLAV 500-125 MG 1 EACH TAB PO SCH ×2 (09:29→19:50)
[2023-01-23] MEDS: CHOLESTYRAMINE (WITH SUGAR) 4 GM PACKET PO SCH ×2 (09:29→17:00)
[2023-01-23] MEDS: DIVALPROEX 500 MG TABLET.DR PO SCH ×2 (09:29→22:18)
[2023-01-23] MEDS: PANTOPRAZOLE 40 MG TABLET PO SCH (09:31)
[2023-01-23] MEDS: HYDROcodone/APAP 5-325MG 1 EACH TAB PO PRN ×2 (09:31→18:42)
[2023-01-23] MEDS: SODIUM CHLORIDE 0.9% 1,000 ML IV SCH ×2 (09:33→21:11)
--- NOTE | 2023-01-23 12:13 | P.PN ---
Progress Note - Text Progress Note Date: 01/23/23 This is a 47-year-old female with previous history gastric sleeve. Patient has had some complaints of epigastric pain and dysphagia. Patient is currently eating a sandwich without any difficulty. On exam vital signs are stable. Abdomen soft. It. Patient scheduled for EGD tomorrow.
[2023-01-23] MEDS ORDERED: ONDANSETRON ODT 4 MG TAB PO PRN (18:37)
[2023-01-24] MEDS: LACOSAMIDE 50 MG TABLET PO SCH ×4 (03:45→21:28)
--- NOTE | 2023-01-24 06:30 | P.PN ---
Subjective * 47-year-old patient with past medical history significant for seizure disorder, migraine headaches, anxiety, depression, history of morbid obesity with gastric bypass, previous history of cellulitis secondary to MRSA, presented to the emergency department brought in by EMS after her called and patient had multiple episodes of severe seizures. Patient had a seizure on her way to the ER and was given 5 mg of Versed. At the time of presentation patient was obtunded and history was obtained from patient had similar presentation when she was admitted in March 2022 and left AGAINST MEDICAL ADVICE then. Patient was seen by neurology at that time * Workup initiated in ER included CBC which were WBC of 25.4 hemoglobin of 8.3 hematocrit of 26.9 platelet count of 347 * Serum chemistry obtained in ER showed sodium of 133, potassium of 5.8, serum bicarbonate 18, BU and 50 creatinine 3.57 lactate of 2.4, AST of 41 ALT 18 * Urinalysis obtained showed cloudy urine, WBC of 182, many bacteria, leukocyte esterase large, serum valproic acid levels 57.2 a sitter mindful less than 10 * CT head obtained in ER negative for acute intracranial process * Patient was given IV fluids normal saline, patient was given 1 dose of Toradol in ED, started on IV Rocephin * patient admitted to medical floor with consultations to be obtained from neurology, nephrology and infectious disease * 01/19/2023: Patient seen and evaluated bedside, patient is alert and oriented 3, sleeping easily arousable, at bedside. Noted to have WBC count of 12.3, hemoglobin 6.9, platelet count of 277, serum chemistry sodium 135 creatinine 1.14 previously creatinine was 3.04. Continue patient on fluid resuscitation, patient had poor IV access requiring a midline, does have severe iron deficiency anemia lactate levels within normal limits, CRP 35.5 a ppreciate input from infectious disease, neurology, nephrology. Patient to be transfused 1 unit of packed RBC * 01/20/2023: Patient seen and evaluated bedside, patient is alert and oriented 3, patient does complain of nausea, vision has been seizure free, continue patient on IV hydration, CRP levels improving, patient has been afebrile. Blood cultures collected as well continue IV Unasyn * 01/21/2023: Patient seen and evaluated bedside, patient has been having recurrent nausea, vomiting and retrosternal discomfort, patient does have history of gastric sleeve, x-ray KUB negative for any perforation. Will consult general surgery, patient has follow-up with , she does have history of menorrhagia, requested AVIONICS ENGINEER input 8 CBC shows WBC count of 7.8, hemoglobin 7.8, dated count of 270 CRP trending down 12.8 from 18.6 01/22/2023 Patient presents with GI symptoms and nausea vomiting, and barium studies showed irregularity at the area of previous gastric sleeve surgery, patient is going to need EGD for this purpose Also she has some vaginal bleeding evaluated by TANKER SERVICEMAN and diagnosed with dysfunctional uterine bleeding secondary to perimenopausal period. Also she's been treated for respiratory tract infection with Unasyn. Neurology were following for seizure, no more seizure activities and patient continued on the implant and Depakote Other than that patient sitting up in bed looks comfortable denies any specific symptoms and she is hemodynamically stable Objective - Vital Signs Vital signs: Vital Signs Temp 98.8 F 01/22/23 07:57 Pulse 59 L 01/22/23 07:57 Resp 18 01/22/23 07:57 BP 151/72 01/22/23 07:57 Pulse Ox 98 01/22/23 07:57 FiO2 Intake & Output 01/21/23 01/22/23 01/22/23 18:59 06:59 18:59 Other: Voiding Method Toilet Toilet Toilet # Voids 1 # Bowel Movements 1 - Exam GENERAL: The patient is alert and oriented x3, not in any acute distress. Well developed, well nourished. HEENT: Pupils are round and equally reacting to light. EOMI. No scleral icterus. No conjunctival pallor. Normocephalic, atraumatic. No pharyngeal erythema. No thyromegaly. CARDIOVASCULAR: S1 and S2 present. No murmurs, rubs, or gallops. PULMONARY: Chest is clear to auscultation, no wheezing , no crackles. ABDOMEN: Soft, nontender, nondistended, normoactive bowel sounds. No palpable organomegaly. MUSCULOSKELETAL: No joint swelling or deformity. EXTREMITIES: No cyanosis, clubbing, or pedal edema. NEUROLOGICAL: Gross neurological examination did not reveal any focal deficits. SKIN: No rashes. no petechiae. - Labs CBC & Chem 7: 01/22/23 04:22 01/22/23 04:22 Labs: Abnormal Lab Results - Last 24 Hours (Table) 01/22/23 01/22/23 Range/Units 04:22 04:22 RBC 3.14 L (4.10-5.20) X 10*6/uL Hgb 7.5 L (12.0-15.0) g/dL Hct 24.9 L (37.2-46.3) % MCV 79.3 L (80.0-97.0) FL MCH 23.9 L (27.0-32.0) pg MCHC 30.1 L (32.0-37.0) g/dL RDW 16.3 H (11.5-14.5) % MPV 8.9 L (9.5-12.2) FL NRBC/100 WBC Diff 0.02 H (0.00-0.01) X 10*3/uL Potassium 3.3 L (3.5-5.5) mmol/L BUN 4.4 L (9.0-27.0) mg/dL BUN/Creatinine Ratio 7.33 L (12.00-20.00) Ratio Calcium 7.8 L (8.7-10.3) mg/dL Assessment and Plan Assessment: seizure disorder with breakthrough seizures Acute renal failure, improved Urinary tract infection Vaginal bleeding, with dysfunctional interim bleeding secondary to perimenopause affect Severe sepsis from UTI, improved Retrosternal pain with recurrent nausea vomiting/history of gastric sleeve Acute hyperkalemia resolved Metabolic acidosis from renal failure/sepsis Iron deficiency anemia Plan: Patient for EGD on Wednesday 01/24 Continue with Unasyn Continue with normal saline Continue with Protonix Continue seizure medication. Continue with vimpat And Depakote Several consultants on the case including TANKER SERVICEMAN which are signed off, general surgery, neurologist, integrity analyst and infectious disease. Labs and medication were reviewed.. Continue same treatment. Continue with symptomatic treatment. Resume home medication. Monitor labs and vitals. DVT and GI prophylaxis. Further recommendations as per clinical course of the patient DVT prophylaxis: no Subcutaneous heparin for bleeding per vagina GI Prophylaxis: Ppi Prognosis is guarded
--- NOTE | 2023-01-24 06:32 | P.PN ---
Subjective * 47-year-old patient with past medical history significant for seizure disorder, migraine headaches, anxiety, depression, history of morbid obesity with gastric bypass, previous history of cellulitis secondary to MRSA, presented to the emergency department brought in by EMS after her called and patient had multiple episodes of severe seizures. Patient had a seizure on her way to the ER and was given 5 mg of Versed. At the time of presentation patient was obtunded and history was obtained from patient had similar presentation when she was admitted in March 2022 and left AGAINST MEDICAL ADVICE then. Patient was seen by neurology at that time * Workup initiated in ER included CBC which were WBC of 25.4 hemoglobin of 8.3 hematocrit of 26.9 platelet count of 347 * Serum chemistry obtained in ER showed sodium of 133, potassium of 5.8, serum bicarbonate 18, BU and 50 creatinine 3.57 lactate of 2.4, AST of 41 ALT 18 * Urinalysis obtained showed cloudy urine, WBC of 182, many bacteria, leukocyte esterase large, serum valproic acid levels 57.2 a sitter mindful less than 10 * CT head obtained in ER negative for acute intracranial process * Patient was given IV fluids normal saline, patient was given 1 dose of Toradol in ED, started on IV Rocephin * patient admitted to medical floor with consultations to be obtained from neurology, nephrology and infectious disease * 01/19/2023: Patient seen and evaluated bedside, patient is alert and oriented 3, sleeping easily arousable, at bedside. Noted to have WBC count of 12.3, hemoglobin 6.9, platelet count of 277, serum chemistry sodium 135 creatinine 1.14 previously creatinine was 3.04. Continue patient on fluid resuscitation, patient had poor IV access requiring a midline, does have severe iron deficiency anemia lactate levels within normal limits, CRP 35.5 a ppreciate input from infectious disease, neurology, nephrology. Patient to be transfused 1 unit of packed RBC * 01/20/2023: Patient seen and evaluated bedside, patient is alert and oriented 3, patient does complain of nausea, vision has been seizure free, continue patient on IV hydration, CRP levels improving, patient has been afebrile. Blood cultures collected as well continue IV Unasyn * 01/21/2023: Patient seen and evaluated bedside, patient has been having recurrent nausea, vomiting and retrosternal discomfort, patient does have history of gastric sleeve, x-ray KUB negative for any perforation. Will consult general surgery, patient has follow-up with , she does have history of menorrhagia, requested SAMPLE WRAPPER input 8 CBC shows WBC count of 7.8, hemoglobin 7.8, dated count of 270 CRP trending down 12.8 from 18.6 01/22/2023 Patient presents with GI symptoms and nausea vomiting, and barium studies showed irregularity at the area of previous gastric sleeve surgery, patient is going to need EGD for this purpose Also she has some vaginal bleeding evaluated by ONCOLOGY ACCOUNT SPECIALIST and diagnosed with dysfunctional uterine bleeding secondary to perimenopausal period. Also she's been treated for respiratory tract infection with Unasyn. Neurology were following for seizure, no more seizure activities and patient continued on the implant and Depakote Other than that patient sitting up in bed looks comfortable denies any specific symptoms and she is hemodynamically stable 01/23/2023 Patient sitting up in bed, no more nausea vomiting, a liquid diet and asked to be advanced more No abdominal pain. Patient will go for EGD tomorrow for irregularity noticed at the swallow test. No overt urinary symptoms and evaluated by GI and 4 vaginal bleeding. No more seizure-like activity. Objective - Vital Signs Vital signs: Vital Signs Temp 97.7 F 01/23/23 12:08 Pulse 62 01/23/23 12:08 Resp 18 01/23/23 12:08 BP 130/81 01/23/23 12:08 Pulse Ox 95 01/23/23 12:08 FiO2 Intake & Output 01/23/23 01/23/23 01/24/23 06:59 18:59 06:59 Other: Voiding Method Toilet Toilet # Voids 3 2 - Exam GENERAL: The patient is alert and oriented x3, not in any acute distress. Well developed, well nourished. HEENT: Pupils are round and equally reacting to light. EOMI. No scleral icterus. No conjunctival pallor. Normocephalic, atraumatic. No pharyngeal erythema. No thyromegaly. CARDIOVASCULAR: S1 and S2 present. No murmurs, rubs, or gallops. PULMONARY: Chest is clear to auscultation, no wheezing , no crackles. ABDOMEN: Soft, nontender, nondistended, normoactive bowel sounds. No palpable organomegaly. MUSCULOSKELETAL: No joint swelling or deformity. EXTREMITIES: No cyanosis, clubbing, or pedal edema. NEUROLOGICAL: Gross neurological examination did not reveal any focal deficits. SKIN: No rashes. no petechiae. - Labs CBC & Chem 7: 01/22/23 04:22 01/22/23 04:22 Labs: Microbiology - Last 24 Hours (Table) 01/17/23 18:50 Blood Culture - Final Blood Assessment and Plan Assessment: seizure disorder with breakthrough seizures Acute renal failure, improved Urinary tract infection Vaginal bleeding, with dysfunctional interim bleeding secondary to perimenopause affect Severe sepsis from UTI, improved Retrosternal pain with recurrent nausea vomiting/history of gastric sleeve Acute hyperkalemia resolved Metabolic acidosis from renal failure/sepsis Iron deficiency anemia Plan: Patient for EGD on Wednesday 01/24 Continue with Unasyn Continue with normal saline Continue with Protonix Continue seizure medication. Continue with vimpat And Depakote Several consultants on the case including ONCOLOGY ACCOUNT SPECIALIST which are signed off, general surgery, neurologist, machine silk screen printer and infectious disease. Labs and medication were reviewed.. Continue same treatment. Continue with s ymptomatic treatment. Resume home medication. Monitor labs and vitals. DVT and GI prophylaxis. Further recommendations as per clinical course of the patient DVT prophylaxis: no Subcutaneous heparin for bleeding per vagina GI Prophylaxis: Ppi Prognosis is guarded
[2023-01-24 07:00] LABS: HCT 27.9 % (34.0-46.0); HGB 8.5 gm/dL (11.4-16.0); Hypochromasia Marked; MCH 24.6 pg (25.0-35.0); MCHC 30.4 g/dL (31.0-37.0); Mean Platelet Volume 7.4; Platelet Count 407 k/uL (150-450); Poikilocytosis Slight; RBC 3.45 m/uL (3.80-5.40); RDW 15.8 % (11.5-15.5); WBC 8.9 k/uL (3.8-10.6)
[2023-01-24 07:30] LABS: African American GFR (CKD) >90 (>60 ml/min/1.73 sqM); Anion Gap 6 mmol/L; Blood Urea Nitrogen 5 mg/dL (7-17); Calcium 7.8 mg/dL (8.4-10.2); Carbon Dioxide 31 mmol/L (22-30); Chloride 105 mmol/L (98-107); Glucose 77 mg/dL (74-99); Magnesium 1.5 mg/dL (1.6-2.3); Non-African American GFR(CKD) >90 (>60 ml/min/1.73 sqM); Potassium 3.3 mmol/L (3.5-5.1); Sodium 142 mmol/L (137-145)
[2023-01-24] MEDS ORDERED: POTASSIUM CHLORIDE ER 20 MEQ TAB.ER PO STA (08:30)
[2023-01-24 08:34] VITALS: RESP 16
[2023-01-24] MEDS: AMOXIC-POT CLAV 500-125 MG 1 EACH TAB PO SCH ×2 (09:00→21:28)
[2023-01-24] MEDS: ONDANSETRON 4 MG/2 ML VIAL IVP PRN (09:48)
[2023-01-24] MEDS: DIVALPROEX 500 MG TABLET.DR PO SCH ×2 (10:00→21:28)
[2023-01-24] MEDS ORDERED: PROPOFOL 10 MG/ML 20 ML VIAL IV ONE (11:10)
[2023-01-24] MEDS ORDERED: MIDAZOLAM 2 MG/2 ML VIAL ONE (11:10)
[2023-01-24] MEDS ORDERED: SODIUM CHLORIDE 0.9% 500 ML 500 ML IV ONE ×2 (11:11)
[2023-01-24] MEDS: PANTOPRAZOLE 40 MG TABLET PO SCH (11:20)
[2023-01-24] MEDS: FERROUS SULFATE 325 MG TAB PO SCH ×2 (11:20→16:57)
[2023-01-24] MEDS: CHOLESTYRAMINE (WITH SUGAR) 4 GM PACKET PO SCH ×2 (11:20→18:07)
--- NOTE | 2023-01-24 11:28 | P.OP ---
Date of Procedure: 01/24/23 Preoperative Diagnosis: GERD Postoperative Diagnosis: Esophagitis Procedure(s) Performed: EGD Anesthesia: MAC Surgeon: Wellington Salvador Pathology: other (Antrum, esophagus) Condition: stable Disposition: PACU Description of Procedure: The patient was placed on the endoscopy table in the lateral position. She received IV sedation. The gastroscope placed oropharynx passed in the esophagus and stomach. Scope was placed through the pylorus. The first second portion of the duodenum appeared normal. Scope was then brought back and the antrum was mildly inflamed. A biopsies performed. The scope was then brought back through the stomach. Patient previous gastric sleeve. There is no evidence of obs truction of the sleeve. The GE junction was at 40 cm distal esophagus appeared mildly inflamed. A biopsies performed. The proximal esophagus appeared normal. Scope withdrawn for patient.
--- NOTE | 2023-01-24 11:43 | P.PN ---
Subjective Progress Note Date: 01/24/23 Patient seen at 9:30 CHIEF COMPLAINT: vomiting HISTORY OF PRESENT ILLNESS: Patient complains of epigastric discomfort with nausea and vomiting yesterday. She scheduled for EGD today. Vitals stable. WBC 8.9 Hgb 8.5 plt 407 potassium 3.3 PHYSICAL EXAM: VITAL SIGNS: Reviewed. GENERAL: Well-developed in no acute distress. ABDOMEN: Soft. Nondistended. NEUROLOGIC: Alert and oriented. Cranial nerves II through XII grossly intact. ASSESSMENT: 1. Vomiting 2. Irregularity at GE junction noted on upper GI 3. History of sleeve gastrectomy 4. Anemia PLAN: -Patient scheduled for EGD today with Dr. escalona Physician Rn Or Lpn note has been reviewed by physician. Signing provider agrees with the documented findings, assessment, and plan of care. Objective - Vital Signs Vital signs: Vital Signs Temp 98.2 F 01/24/23 07:49 Pulse 67 01/24/23 07:49 Resp 16 01/24/23 07:49 BP 132/85 01/24/23 07:49 Pulse Ox 97 01/24/23 07:49 FiO2 Intake & Output 01/23/23 01/24/23 01/24/23 18:59 06:59 18:59 Intake Total 250 Balance 250 Intake: IV 250 Other: Voiding Method Toilet Toilet # Voids 2 1 - Labs CBC & Chem 7: 01/24/23 06:42 01/24/23 06:42 Labs: Abnormal Lab Results - Last 24 Hours (Table) 01/24/23 01/24/23 Range/Units 06:42 06:42 RBC 3.45 L (3.80-5.40) m/uL Hgb 8.5 L (11.4-16.0) gm/dL Hct 27.9 L (34.0-46.0) % MCH 24.6 L (25.0-35.0) pg MCHC 30.4 L (31.0-37.0) g/dL RDW 15.8 H (11.5-15.5) % Potassium 3.3 L (3.5-5.1) mmol/L Carbon Dioxide 31 H (22-30) mmol/L BUN 5 L (7-17) mg/dL Calcium 7.8 L (8.4-10.2) mg/dL Magnesium 1.5 L (1.6-2.3) mg/dL
[2023-01-24 13:41] LABS: Band Neutrophils % 2 %; Eosinophils # (M) 0.27 k/uL (0-0.7); Lymphocytes # (M) 2.49 k/uL (1.0-4.8); Metamyelocytes # (M) 0.18 k/uL (0); Metamyelocytes % 2 %; Monocytes # (M) 0.62 k/uL (0-1.0); Myelocytes # (M) 0.36 k/uL (0); Myelocytes % 4 %; Neutrophils % (M) 55 %; Nucleated Red Blood Cells 0 /100 WBC (0-0); Total Cells Counted 200
[2023-01-24 13:42] LABS: Anisocytosis (M) Present
--- NOTE | 2023-01-24 15:42 | P.PN ---
Subjective Progress Note Date: 01/24/23 Patient initially seen by Dr. Brant Nieves. Please refer to his note for details. Patient admitted with breakthrough seizure due to vomiting from dental extraction and likely UTI. Vomiting has improved and changed back to by mouth medications. From time to time, the nurses report she has tremor. Patient claims that she has developed seizure disorder since March 2022. She had numerous seizures. About 3 days ago she had a seizure where, when she felt hot, and was talking, when she suddenly is pain is out and had one, lasting for "couple seconds". Patient currently on Depakote 500 mg twice a day, Vimpat 100 mg 4 times a day and [place] 5/325 mg twice a day when necessary Some of the workup during his hospital visit consisted of: White blood cell is 25.4 thousand, predominantly neutrophilic.--resolved. Lactic acid is 2.4. Sodium is 133 at. BUN is 50 and neck creatinine is 3.57. He. Creatinine is 1.14. Her hemoglobin is trending down on presentation was 8.3 currently is 6.9 today and the repeated today was 7.2. CRP is 35.5--18.6 Urinalysis seems suggestive of underlying acute urinary tract infection. Valproic acid level is 57.[address] of the head is reported as no acute intracranial process. Routine EEG is abnormal. The background slowing is suggestive of mild encephalopathy. Excessive beta activities due to medication effect(Ativan). There is no focal slowing, perform discharges or seizure in the EEG. Blood culture is no grow after 48 hours. Objective - Vital Signs Vital signs: Vital Signs Temp 97.6 F 01/24/23 13:14 Pulse 67 01/24/23 13:14 Resp 16 01/24/23 13:14 BP 119/81 01/24/23 13:14 Pulse Ox 97 01/24/23 13:14 FiO2 Intake & Output 01/23/23 01/24/23 01/24/23 18:59 06:59 18:59 Intake Total 250 Balance 250 Intake: IV 250 Other: Voiding Method Toilet Toilet # Voids 2 1 - Exam Patient's mental status, speech and language functions, cranial nerves are normal. Muscle strength is normal. Patient has mild fine tremors of outstretched hands. - Labs CBC & Chem 7: 01/24/23 06:42 01/24/23 06:42 Labs: Abnormal Lab Results - Last 24 Hours (Table) 01/24/23 01/24/23 Range/Units 06:42 06:42 RBC 3.45 L (3.80-5.40) m/uL Hgb 8.5 L (11.4-16.0) gm/dL Hct 27.9 L (34.0-46.0) % MCH 24.6 L (25.0-35.0) pg MCHC 30.4 L (31.0-37.0) g/dL RDW 15.8 H (11.5-15.5) % Metamyelocytes # (Man) 0.18 H (0) k/uL Myelocytes # (Manual) 0.36 H (0) k/uL Potassium 3.3 L (3.5-5.1) mmol/L Carbon Dioxide 31 H (22-30) mmol/L BUN 5 L (7-17) mg/dL Calcium 7.8 L (8.4-10.2) mg/dL Magnesium 1.5 L (1.6-2.3) mg/dL Assessment and Plan Assessment: This is a 47-year-old woman who presented with department because of seizure. She states that she had her teeth worked on this past and then the next day she felt she had a tooth infected and she was having nausea vomiting and as a result she was not taking her antiepileptic drugs. This probably resulted in brain to seizure. Breakthrough seizure. Seems provoked since she was having nausea vomiting as well as a seems that she has a probable acute UTI. Also possible tooth infection. No further seizure History of seizures and she had a prolonged EEG on 04/05/2022 (2.5 hours) was reported as normal Probable acute UTI. Acute Kidney injury, resolved. Anemia. History of medication noncompliance History of abscess boil in the lower back History of gastric bypass in 2018 History of cellulitis in the right thigh Chronic depression/anxiety History of marijuana use Plan: Patient has been restarted on her home medication of Vimpat 100 mg 1 tablet 4 times a day as well as Depakote 500 mg twice a day. She cannot handle Keppra since she feels increases the frequency of seizures. Patient is back on oral medications, as the vomiting has resolved. Patient's tremors likely related to side effect of Depakote. Patient was recommended to discuss with primary neurologist Dr. Galeano, if she continues to have tremors that are bothersome to her, to try to switch to a different antiepileptic medication, as Depakote can produce tremors. Seizure precautions seizure pads Pending Vimpat level Nephrology is consulted ID is on board. We'll defer the rest of the medical management to primary team On discharge the patient needs to follow-up with her neurologist as an outpatient Dr. Galeano within 2-3 weeks. Neurologically clear.
[2023-01-24 16:06] VITALS: BMI 28.1
[2023-01-24] MEDS: SODIUM CHLORIDE 0.9% 1,000 ML IV SCH ×2 (16:56→22:33)
[2023-01-24] MEDS: HYDROcodone/APAP 5-325MG 1 EACH TAB PO PRN (21:30)
[2023-01-25] MEDS ORDERED: MAGNESIUM SULFATE-D5W PMX 1 GM in DEXTROSE/WATER 1 100ML.BAG IVPB ONE (03:21)
[2023-01-25] MEDS: LACOSAMIDE 50 MG TABLET PO SCH ×3 (03:42→17:11)
--- NOTE | 2023-01-25 03:57 | P.PN ---
Subjective * 47-year-old patient with past medical history significant for seizure disorder, migraine headaches, anxiety, depression, history of morbid obesity with gastric bypass, previous history of cellulitis secondary to MRSA, presented to the emergency department brought in by EMS after her called and patient had multiple episodes of severe seizures. Patient had a seizure on her way to the ER and was given 5 mg of Versed. At the time of presentation patient was obtunded and history was obtained from patient had similar presentation when she was admitted in March 2022 and left AGAINST MEDICAL ADVICE then. Patient was seen by neurology at that time * Workup initiated in ER included CBC which were WBC of 25.4 hemoglobin of 8.3 hematocrit of 26.9 platelet count of 347 * Serum chemistry obtained in ER showed sodium of 133, potassium of 5.8, serum bicarbonate 18, BU and 50 creatinine 3.57 lactate of 2.4, AST of 41 ALT 18 * Urinalysis obtained showed cloudy urine, WBC of 182, many bacteria, leukocyte esterase large, serum valproic acid levels 57.2 a sitter mindful less than 10 * CT head obtained in ER negative for acute intracranial process * Patient was given IV fluids normal saline, patient was given 1 dose of Toradol in ED, started on IV Rocephin * patient admitted to medical floor with consultations to be obtained from neurology, nephrology and infectious disease * 01/19/2023: Patient seen and evaluated bedside, patient is alert and oriented 3, sleeping easily arousable, at bedside. Noted to have WBC count of 12.3, hemoglobin 6.9, platelet count of 277, serum chemistry sodium 135 creatinine 1.14 previously creatinine was 3.04. Continue patient on fluid resuscitation, patient had poor IV access requiring a midline, does have severe iron deficiency anemia lactate levels within normal limits, CRP 35.5 a ppreciate input from infectious disease, neurology, nephrology. Patient to be transfused 1 unit of packed RBC * 01/20/2023: Patient seen and evaluated bedside, patient is alert and oriented 3, patient does complain of nausea, vision has been seizure free, continue patient on IV hydration, CRP levels improving, patient has been afebrile. Blood cultures collected as well continue IV Unasyn * 01/21/2023: Patient seen and evaluated bedside, patient has been having recurrent nausea, vomiting and retrosternal discomfort, patient does have history of gastric sleeve, x-ray KUB negative for any perforation. Will consult general surgery, patient has follow-up with , she does have history of menorrhagia, requested CEMENT PATCHER input 8 CBC shows WBC count of 7.8, hemoglobin 7.8, dated count of 270 CRP trending down 12.8 from 18.6 01/22/2023 Patient presents with GI symptoms and nausea vomiting, and barium studies showed irregularity at the area of previous gastric sleeve surgery, patient is going to need EGD for this purpose Also she has some vaginal bleeding evaluated by HAT AND CAP SEWER and diagnosed with dysfunctional uterine bleeding secondary to perimenopausal period. Also she's been treated for respiratory tract infection with Unasyn. Neurology were following for seizure, no more seizure activities and patient continued on the implant and Depakote Other than that patient sitting up in bed looks comfortable denies any specific symptoms and she is hemodynamically stable 01/23/2023 Patient sitting up in bed, no more nausea vomiting, a liquid diet and asked to be advanced more No abdominal pain. Patient will go for EGD tomorrow for irregularity noticed at the swallow test. No overt urinary symptoms and evaluated by GI and 4 vaginal bleeding. No more seizure-like activity. 01/24/2023 Patient had EGD with Gen. surgery and showing mildly inflamed antrum, biopsy was taken with no obstruction at the gastroesophageal junction in relation to the irregularity seen on barium swallow. As such patient was resume diet and she tolerates that's well at 75 200% with no more vomiting. While she continued on a Protonix. Her hemoglobin is stable. However patient needed some help with movement as per and patient returned vaginal bleeding, patient already seen by CEMENT PATCHER dr ayala which is found premenopausal bleeding which is stopped at that time however because of recurrent vaginal bleeding without going to monitor for another 24 hours, monitor vitals, blood pressure and hemoglobin, if no improvement then we will reconsult dr ayala In the meantime patient was found neurologically clear for discharge and to resume her medication ofvimpat and Depakote and to follow up with her neurologist Dr. swan. Also her UTI is improving and currently she is on oral Augmentin to finish her course with short course upon discharge Possible discharge in 24-48 hours if she keeps improving and stable Objective - Vital Signs Vital signs: Vital Signs Temp 97.6 F 12/11/23 13:14 Pulse 67 01/24/23 13:14 Resp 16 01/24/23 13:14 BP 119/81 01/24/23 13:14 Pulse Ox 97 01/24/23 13:14 FiO2 Intake & Output 01/23/23 01/24/23 01/24/23 18:59 06:59 18:59 Intake Total 250 Balance 250 Intake: IV 250 Other: Voiding Method Toilet Toilet # Voids 2 1 - Exam GENERAL: The patient is alert and oriented x3, not in any acute distress. Well developed, well nourished. HEENT: Pupils are round and equally reacting to light. EOMI. No scleral icterus. No conjunctival pallor. Normocephalic, atraumatic. No pharyngeal erythema. No thyromegaly. CARDIOVASCULAR: S1 and S2 present. No murmurs, rubs, or gallops. PULMONARY: Chest is clear to auscultation, no wheezing , no crackles. ABDOMEN: Soft, nontender, nondistended, normoactive bowel sounds. No palpable organomegaly. MUSCULOSKELETAL: No joint swelling or deformity. EXTREMITIES: No cyanosis, clubbing, or pedal edema. NEUROLOGICAL: Gross neurological examination did not reveal any focal deficits. SKIN: No rashes. no petechiae. - Labs CBC & Chem 7: 01/24/23 06:42 01/24/23 06:42 Labs: Abnormal Lab Results - Last 24 Hours (Table) 01/24/23 01/24/23 Range/Units 06:42 06:42 RBC 3.45 L (3.80-5.40) m/uL Hgb 8.5 L (11.4-16.0) gm/dL Hct 27.9 L (34.0-46.0) % MCH 24.6 L (25.0-35.0) pg MCHC 30.4 L (31.0-37.0) g/dL RDW 15.8 H (11.5-15.5) % Metamyelocytes # (Man) 0.18 H (0) k/uL Myelocytes # (Manual) 0.36 H (0) k/uL Potassium 3.3 L (3.5-5.1) mmol/L Carbon Dioxide 31 H (22-30) mmol/L BUN 5 L (7-17) mg/dL Calcium 7.8 L (8.4-10.2) mg/dL Magnesium 1.5 L (1.6-2.3) mg/dL Assessment and Plan Assessment: seizure disorder with breakthrough seizures Acute renal failure, improved Urinary tract infection Vaginal bleeding, with dysfunctional interim bleeding secondary to perimenopause affect Severe sepsis from UTI, improved Retrosternal pain with recurrent nausea vomiting/history of gastric sleeve Acute hyperkalemia resolved Metabolic acidosis from renal failure/sepsis Iron deficiency anemia Plan: Patient for EGD on Wednesday 01/24 showed mild gastritis and biopsy was taken Continue with him by taking: Unasyn which is wished to Augmentin Continue with normal saline Continue with Protonix Continue seizure medication. Continue with vimpat And Depakote Several consultants on the case including HAT AND CAP SEWER which are signed off, general surgery, neurologist, form building supervisor and infectious disease. Labs and medication were reviewed.. Continue same treatment. Continue with symptomatic treatment. Resume home medication. Monitor labs and vitals. DVT and GI prophylaxis. Further recommendations as per clinical course of the patient DVT prophylaxis: no Subcutaneous heparin for bleeding per vagina GI Prophylaxis: Ppi Prognosis is guarded
[2023-01-25] MEDS: PANTOPRAZOLE 40 MG TABLET PO SCH (08:10)
[2023-01-25] MEDS: AMOXIC-POT CLAV 500-125 MG 1 EACH TAB PO SCH (08:10)
[2023-01-25] MEDS: FERROUS SULFATE 325 MG TAB PO SCH ×2 (08:10→17:11)
[2023-01-25] MEDS: CHOLESTYRAMINE (WITH SUGAR) 4 GM PACKET PO SCH ×2 (09:19→17:11)
[2023-01-25] MEDS: DIVALPROEX 500 MG TABLET.DR PO SCH (09:19)
[2023-01-25 11:10] LABS: HCT 26.8 % (37.2-46.3); HGB 8.1 g/dL (12.0-15.0); MCH 24.3 pg (27.0-32.0); MCHC 30.2 g/dL (32.0-37.0); MCV 80.2 FL (80.0-97.0); Mean Platelet Volume 8.6 FL (9.5-12.2); NRBC Per 100 WBC 0.06 X 10*3/uL (0.00-0.01); Platelet Count 348 X 10*3/uL (140-440); RBC 3.34 X 10*6/uL (4.10-5.20); WBC 10.27 X 10*3/uL (4.50-10.00)
[2023-01-25 11:26] LABS: Blood Urea Nitrogen 4.8 mg/dL (9.0-27.0); Calcium 8.2 mg/dL (8.7-10.3); Carbon Dioxide 28.4 mmol/L (21.6-31.8); Chloride 104 mmol/L (96-109); Glucose 82 mg/dL (70-110); Magnesium 1.8 mg/dL (1.5-2.4); Potassium 3.6 mmol/L (3.5-5.5); Sodium 143 mmol/L (135-145)
[2023-01-25 12:02] LABS: Basophils # (M) 0 X 10*3/uL (0.00-0.10)
[2023-01-25 12:26] LABS: Eosinophils # (M) 0.41 X 10*3/uL (0.04-0.35); Lymphocytes # (M) 2.57 X 10*3/uL (0.90-5.00); Metamyelocytes % 1 % (0-0); Monocytes # (M) 0.21 X 10*3/uL (0.20-1.00); Neutrophils # (M) 6.98 X 10*3/uL (1.80-7.70); Neutrophils % (M) 68 %; Nucleated Red Blood Cells 1 /100 WBCS
[2023-01-25] MEDS ORDERED: POTASSIUM CHLORIDE ER 20 MEQ TAB.ER PO STA (12:33)
[2023-01-25] MEDS ORDERED: MAGNESIUM OXIDE 400 MG TAB PO STA (12:33)
--- NOTE | 2023-01-25 12:44 | P.PN ---
Subjective Progress Note Date: 01/25/23 CHIEF COMPLAINT: vomiting HISTORY OF PRESENT ILLNESS: Patient status post EGD revealing esophagitis. Tone yancey reports that she was able to tolerate regular diet. No further nausea or vomiting. She denies any abdominal pain. Afebrile. WBC 10.27 Hgb 8.1 PHYSICAL EXAM: VITAL SIGNS: Reviewed. GENERAL: Well-developed in no acute distress. ABDOMEN: Soft. Nondistended. Nondistended NEUROLOGIC: Alert and oriented. Cranial nerves II through XII grossly intact. ASSESSMENT: 1. Vomiting status post EGD revealing esophagitis 2. Irregularity at GE junction noted on upper GI 3. History of sleeve gastrectomy 4. Anemia PLAN: -Patient can be discharged from surgical standpoint -Recommend omeprazole at discharge Physician Machine Clothing Man note has been reviewed by physician. Signing provider agrees with the documented findings, assessment, and plan of care. Objective - Vital Signs Vital signs: Vital Signs Temp 97.8 F 01/25/23 07:46 Pulse 61 01/25/23 08:25 Resp 16 01/25/23 07:46 BP 146/87 01/25/23 08:25 Pulse Ox 97 01/25/23 08:25 FiO2 Intake & Output 01/24/23 01/25/23 01/25/23 18:59 06:59 18:59 Intake Total 250 240 Balance 250 240 Weight 81.647 kg Intake: IV 250 Oral 240 Other: Voiding Method Toilet Toilet # Voids 3 1 - Labs CBC & Chem 7: 01/25/23 06:44 01/25/23 06:44 Labs: Abnormal Lab Results - Last 24 Hours (Table) 01/24/23 01/25/23 01/25/23 Range/Units 06:42 06:44 06:44 WBC 10.27 H (4.50-10.00) X 10*3/uL RBC 3.34 L (4.10-5.20) X 10*6/uL Hgb 8.1 L (12.0-15.0) g/dL Hct 26.8 L (37.2-46.3) % MCH 24.3 L (27.0-32.0) pg MCHC 30.2 L (32.0-37.0) g/dL RDW 16.0 H (11.5-14.5) % MPV 8.6 L (9.5-12.2) FL Eosinophils # (Manual) 0.41 H (0.04-0.35) X 10*3/uL Metamyelocytes # (Man) 0.18 H (0) k/uL Myelocytes # (Manual) 0.36 H (0) k/uL NRBC/100 WBC Diff 0.06 H (0.00-0.01) X 10*3/uL BUN 4.8 L (9.0-27.0) mg/dL BUN/Creatinine Ratio 8.00 L (12.00-20.00) Ratio Calcium 8.2 L (8.7-10.3) mg/dL
[2023-01-25 13:37] VITALS: BP 143/90; PULSE 66; TEMP 98
[2023-01-25] MEDS: SODIUM CHLORIDE 0.9% 1,000 ML IV SCH (16:23)
[2023-01-25] MEDS: HYDROcodone/APAP 5-325MG 1 EACH TAB PO PRN (17:14)
--- NOTE | 2023-01-25 17:31 | P.PN ---
Subjective Progress Note Date: 01/21/23 Principal diagnosis: Reason for follow-up is sepsis and UTI question of dental infection Patient is a 47-year-old female with a past medical history significant for reflux seizure disorder patient recently have a tooth extraction as the patient has been brought to the hospital for evaluation of seizure, patient also spiked a fever did have a positive UA concerning for urinary tract infection On today's evaluation that is 01/21/2023, the patient remains to be afebrile and is breathing comfortably on room air and no need for oxygen, and patient denies chest pain shortness of breath, and no cough or sputum production, patient denies nausea/vomiting, denies having any diarrhea and no abdominal pain, the patient denies any worsening pain with the left lower jaw area Patient white count is 7.85, creatinine is 0.7, blood culture has been negative Objective - Vital Signs Vital signs: Vital Signs Temp 98.2 F 01/21/23 07:38 Pulse 73 01/21/23 07:38 Resp 17 01/21/23 07:38 BP 113/70 01/21/23 07:38 Pulse Ox 95 01/21/23 07:38 FiO2 Intake & Output 01/20/23 01/21/23 01/21/23 18:59 06:59 18:59 Intake Total 222 Balance 222 Intake: Oral 222 Other: Voiding Method Toilet Toilet # Voids 1 1 # Bowel Movements 1 - Exam GENERAL DESCRIPTION: A middle-age female lying in bed in no distress RESPIRATORY SYSTEM: Unlabored breathing , clear to auscultation anteriorly HEART: S1 S2 regular rate and rhythm , ABDOMEN: Soft , no tenderness EXTREMITIES: No edema feet - Labs CBC & Chem 7: 01/25/23 06:44 01/25/23 06:44 Labs: Abnormal Lab Results - Last 24 Hours (Table) 01/20/23 01/20/23 01/21/23 Range/Units 06:45 06:45 05:21 RBC 3.07 L 3.21 L (4.10-5.20) X 10*6/uL Hgb 7.6 L 7.8 L (12.0-15.0) g/dL Hct 24.0 L 25.3 L (37.2-46.3) % MCV 78.2 L 78.8 L (80.0-97.0) FL MCH 24.8 L 24.3 L (27.0-32.0) pg MCHC 31.7 L 30.8 L (32.0-37.0) g/dL RDW 15.8 H 15.9 H (11.5-14.5) % MPV 9.2 L 9.0 L (9.5-12.2) FL BUN (9.0-27.0) mg/dL BUN/Creatinine Ratio (12.00-20.00) Ratio Calcium 7.5 L (8.7-10.3) mg/dL C-Reactive Protein 18.60 H (0.00-0.80) mg/dL 01/21/23 Range/Units 05:21 RBC (4.10-5.20) X 10*6/uL Hgb (12.0-15.0) g/dL Hct (37.2-46.3) % MCV (80.0-97.0) FL MCH (27.0-32.0) pg MCHC (32.0-37.0) g/dL RDW (11.5-14.5) % MPV (9.5-12.2) FL BUN 7.2 L (9.0-27.0) mg/dL BUN/Creatinine Ratio 10.29 L (12.00-20.00) Ratio Calcium 7.8 L (8.7-10.3) mg/dL C-Reactive Protein 12.80 H (0.00-0.80) mg/dL Microbiology - Last 24 Hours (Table) 01/17/23 18:50 Blood Culture - Preliminary Blood Assessment and Plan (1) Urinary tract infection Current Visit: Yes Status: Acute Code(s): N39.0 - URINARY TRACT INFECTION, SITE NOT SPECIFIED SNOMED Code(s): 77830277 Plan: 1patient was in the hospital with sepsis in this patient who did have a fever elevated white count tachycardia did have significantly positive UA likely urinary source however the patient recently did have a tooth extraction and the patient has been complaining of some pain to the lower jaw a possible component of dental infection did not exclude 2-patient did have some clinical improvement with resolution of the fever and white count has normalized 3patient To continue with the Unasyn while waiting for the condition to stabilize before transition to oral and monitor clinical course closely Dictation was produced using [email or web address] dictation software. please excuse any grammatical, word or spelling errors. Time with Patient: Less than 30
--- NOTE | 2023-01-25 17:35 | P.PN ---
Subjective Progress Note Date: 01/22/23 Principal diagnosis: Reason for follow-up is sepsis and UTI question of dental infection This is a telehealth visit Patient is a 47-year-old female with a past medical history significant for reflux seizure disorder patient recently have a tooth extraction as the patient has been brought to the hospital for evaluation of seizure, patient also spiked a fever did have a positive UA concerning for urinary tract infection On today's evaluation that is 01/22/2023, the patient remains to be afebrile , The pt is breathing comfortably on room air , and patient denies chest pain sh ortness of breath, and no cough or sputum production, patient denies nausea/vomiting, denies having any diarrhea and no abdominal pain, the patient denies any worsening pain with the left lower jaw area, pt did lot her IV Patient white count is 9.03 creatinine is 0.6, blood culture has been negative Objective - Vital Signs Vital signs: Vital Signs Temp 98.8 F 01/22/23 07:57 Pulse 59 L 01/22/23 07:57 Resp 18 01/22/23 07:57 BP 151/72 01/22/23 07:57 Pulse Ox 98 01/22/23 07:57 FiO2 Intake & Output 01/21/23 01/22/23 01/22/23 18:59 06:59 18:59 Other: Voiding Method Toilet Toilet Toilet # Voids 1 # Bowel Movements 1 - Exam GENERAL DESCRIPTION: A middle-age female lying in bed in no distress RESPIRATORY SYSTEM: Unlabored breathing , clear to auscultation anteriorly HEART: S1 S2 regular rate and rhythm , ABDOMEN: Soft , no tenderness EXTREMITIES: No edema feet Exam completed with the help of INSURANCE VERIFICATION SPECIALIST - Labs CBC & Chem 7: 01/25/23 06:44 01/25/23 06:44 Labs: Abnormal Lab Results - Last 24 Hours (Table) 01/21/23 Range/Units 05:21 BUN 7.2 L (9.0-27.0) mg/dL BUN/Creatinine Ratio 10.29 L (12.00-20.00) Ratio Calcium 7.8 L (8.7-10.3) mg/dL C-Reactive Protein 12.80 H (0.00-0.80) mg/dL Microbiology - Last 24 Hours (Table) 01/17/23 18:50 Blood Culture - Preliminary Blood Assessment and Plan (1) Urinary tract infection Current Visit: Yes Status: Acute Code(s): N39.0 - URINARY TRACT INFECTION, SITE NOT SPECIFIED SNOMED Code(s): 73010457 (2) Dental infection Current Visit: Yes Status: Acute Code(s): K04.7 - PERIAPICAL ABSCESS WITHOUT SINUS SNOMED Code(s): 563029150 Plan: 1patient was in the hospital with sepsis in this patient who did have a fever elevated white count tachycardia did have significantly positive UA likely urinary source however the patient recently did have a tooth extraction and the patient has been complaining of some pain to the lower jaw a possible component of dental infection did not exclude 2-patient did have some clinical improvement with resolution of the fever and white count has normalized 3patient did lost her IV we will discontinue Unasyn and start the patient on Augmentin Dictation was produced using [employer] dictation software. please excuse any grammatical, word or spelling errors.
--- NOTE | 2023-01-25 17:37 | P.PN ---
Subjective Progress Note Date: 01/23/23 Principal diagnosis: Reason for follow-up is sepsis and UTI question of dental infection This is a telehealth visit Patient is a 47-year-old female with a past medical history significant for reflux seizure disorder patient recently have a tooth extraction as the patient has been brought to the hospital for evaluation of seizure, patient also spiked a fever did have a positive UA concerning for urinary tract infection On today's evaluation that is 01/23/2023, the patient continues to be afebrile , The pt is breathing comfortably on room air , and patient denies chest pain shortness of breath patient denies cough or sputum production, patient denies nausea/vomiting, denies having any diarrhea and no abdominal pain, the patient pain to the right lower jaw area has decreased in intensity Patient white count is 9.03 creatinine is 0.6 as of 01/22/2023, blood culture has been negative Objective - Vital Signs Vital signs: Vital Signs Temp 97.8 F 01/23/23 08:00 Pulse 60 01/23/23 08:00 Resp 18 01/23/23 08:00 BP 115/71 01/23/23 08:00 Pulse Ox 96 01/23/23 08:00 FiO2 Intake & Output 01/22/23 01/23/23 01/23/23 18:59 06:59 18:59 Intake Total 900 Balance 900 Intake: Intake, IV Titration 900 Amount Sodium Chloride 0.9% 1, 900 000 ml @ 75 mls/hr IV . [id number] [facility] Rx#:[id number] Other: Voiding Method Toilet Toilet # Voids 3 - Exam GENERAL DESCRIPTION: A middle-age female lying in bed in no distress RESPIRATORY SYSTEM: Unlabored breathing , clear to auscultation anteriorly HEART: S1 S2 regular rate and rhythm , ABDOMEN: Soft , no tenderness EXTREMITIES: No edema feet Exam completed with the help of DIRECTOR HR COMMUNICATIONS - Labs CBC & Chem 7: 01/25/23 06:44 01/25/23 06:44 Labs: Abnormal Lab Results - Last 24 Hours (Table) 01/22/23 01/22/23 Range/Units 04:22 04:22 RBC 3.14 L (4.10-5.20) X 10*6/uL Hgb 7.5 L (12.0-15.0) g/dL Hct 24.9 L (37.2-46.3) % MCV 79.3 L (80.0-97.0) FL MCH 23.9 L (27.0-32.0) pg MCHC 30.1 L (32.0-37.0) g/dL RDW 16.3 H (11.5-14.5) % MPV 8.9 L (9.5-12.2) FL NRBC/100 WBC Diff 0.02 H (0.00-0.01) X 10*3/uL Potassium 3.3 L (3.5-5.5) mmol/L BUN 4.4 L (9.0-27.0) mg/dL BUN/Creatinine Ratio 7.33 L (12.00-20.00) Ratio Calcium 7.8 L (8.7-10.3) mg/dL Microbiology - Last 24 Hours (Table) 01/17/23 18:50 Blood Culture - Final Blood Assessment and Plan (1) Urinary tract infection Current Visit: Yes Status: Acute Code(s): N39.0 - URINARY TRACT INFECTION, SITE NOT SPECIFIED SNOMED Code(s): 62871590 (2) Dental infection Current Visit: Yes Status: Acute Code(s): K04.7 - PERIAPICAL ABSCESS WITHOUT SINUS SNOMED Code(s): 624361275 Plan: 1patient was in the hospital with sepsis in this patient who did have a fever elevated white count tachycardia did have significantly positive UA likely urinary source however the patient recently did have a tooth extraction and the patient has been complaining of some pain to the lower jaw a possible component of dental infection did not exclude 2-patient did have some clinical improvement with resolution of the fever and white count has normalized 3patient to continue with Augmentin and monitor clinical course closely Dictation was produced using [employer] dictation software. please excuse any grammatical, word or spelling errors. Time with Patient: Less than 30
--- NOTE | 2023-01-25 17:39 | P.PN ---
Subjective Progress Note Date: 01/24/23 Principal diagnosis: Reason for follow-up is sepsis and UTI question of dental infection Patient is a 47-year-old female with a past medical history significant for reflux seizure disorder patient recently have a tooth extraction as the patient has been brought to the hospital for evaluation of seizure, patient also spiked a fever did have a positive UA concerning for urinary tract infection, the patient is status post EGD completed on 01/24/2023 with evidence of gastritis s tatus post biopsy On today's evaluation that is 01/24/2023, the patient remains to be afebrile , The pt is breathing comfortably on room air, the patient denies chest pain shortness of breath, the patient denies cough or sputum production, patient denies abdominal pain and no nausea/vomiting or any diarrhea and no abdominal pain, the patient pain to the right lower jaw area has decreased in intensity Patient white count is 8.9, creatinine 0.56 Objective - Vital Signs Vital signs: Vital Signs Temp 98.2 F 01/24/23 07:49 Pulse 67 01/24/23 07:49 Resp 16 01/24/23 07:49 BP 132/85 01/24/23 07:49 Pulse Ox 97 01/24/23 07:49 FiO2 Intake & Output 01/23/23 01/24/23 01/24/23 18:59 06:59 18:59 Intake Total 250 Balance 250 Intake: IV 250 Other: Voiding Method Toilet Toilet # Voids 2 1 - Exam GENERAL DESCRIPTION: A middle-age female lying in bed in no distress RESPIRATORY SYSTEM: Unlabored breathing , clear to auscultation anteriorly HEART: S1 S2 regular rate and rhythm , ABDOMEN: Soft , no tenderness EXTREMITIES: No edema feet - Labs CBC & Chem 7: 01/25/23 06:44 01/25/23 06:44 Labs: Abnormal Lab Results - Last 24 Hours (Table) 01/24/23 01/24/23 Range/Units 06:42 06:42 RBC 3.45 L (3.80-5.40) m/uL Hgb 8.5 L (11.4-16.0) gm/dL Hct 27.9 L (34.0-46.0) % MCH 24.6 L (25.0-35.0) pg MCHC 30.4 L (31.0-37.0) g/dL RDW 15.8 H (11.5-15.5) % Potassium 3.3 L (3.5-5.1) mmol/L Carbon Dioxide 31 H (22-30) mmol/L BUN 5 L (7-17) mg/dL Calcium 7.8 L (8.4-10.2) mg/dL Magnesium 1.5 L (1.6-2.3) mg/dL Assessment and Plan (1) Urinary tract infection Current Visit: Yes Status: Acute Code(s): N39.0 - URINARY TRACT INFECTION, SITE NOT SPECIFIED SNOMED Code(s): 55298908 (2) Dental infection Current Visit: Yes Status: Acute Code(s): K04.7 - PERIAPICAL ABSCESS WITHOUT SINUS SNOMED Code(s): 289035760 Plan: 1patient was in the hospital with sepsis in this patient who did have a fever elevated white count tachycardia did have significantly positive UA likely urinary source however the patient recently did have a tooth extraction and the patient has been complaining of some pain to the lower jaw a possible component of dental infection did not exclude 2-patient did have some clinical improvement with resolution of the fever and white count has normalized 3plan is to continue with Augmentin in view of clinical response and monitor clinical course closely Dictation was produced using [employer] dictation software. please excuse any grammatical, word or spelling errors. Time with Patient: Less than 30
--- NOTE | 2023-01-25 17:40 | P.PN ---
Subjective Progress Note Date: 01/25/23 Principal diagnosis: Reason for follow-up is UTI and dental infection Patient is a 47-year-old female with a past medical history significant for reflux seizure disorder patient recently have a tooth extraction as the patient has been brought to the hospital for evaluation of seizure, patient also spiked a fever did have a positive UA concerning for urinary tract infection, the patient is status post EGD completed on 01/24/2023 with evidence of gastritis status post biopsy On today's evaluation that is 01/25/2023, the patient denies any fever or any chills, the patient is breathing comfortably on room air with only for supplemental oxygen, the patient denies chest pain shortness of breath, the patient denies cough or sputum production, patient denies abdominal pain and no nausea/vomiting or any diarrhea and no abdominal pain, the patient pain to the right lower jaw area has decreased in intensity no new symptoms Patient white count is 10.27, creatinine 0.6 Objective - Vital Signs Vital signs: Vital Signs Temp 97.8 F 01/25/23 07:46 Pulse 61 01/25/23 08:25 Resp 16 01/25/23 07:46 BP 146/87 01/25/23 08:25 Pulse Ox 97 01/25/23 08:25 FiO2 Intake & Output 01/24/23 01/25/23 01/25/23 18:59 06:59 18:59 Intake Total 250 240 Balance 250 240 Weight 81.647 kg Intake: IV 250 Oral 240 Other: Voiding Method Toilet Toilet # Voids 3 1 - Exam GENERAL DESCRIPTION: A middle-age female lying in bed in no distress RESPIRATORY SYSTEM: Unlabored breathing , clear to auscultation anteriorly HEART: S1 S2 regular rate and rhythm , ABDOMEN: Soft , no tenderness EXTREMITIES: No edema feet - Labs CBC & Chem 7: 01/25/23 06:44 01/25/23 06:44 Labs: Abnormal Lab Results - Last 24 Hours (Table) 01/24/23 01/25/23 01/25/23 Range/Units 06:42 06:44 06:44 WBC 10.27 H (4.50-10.00) X 10*3/uL RBC 3.34 L (4.10-5.20) X 10*6/uL Hgb 8.1 L (12.0-15.0) g/dL Hct 26.8 L (37.2-46.3) % MCH 24.3 L (27.0-32.0) pg MCHC 30.2 L (32.0-37.0) g/dL RDW 16.0 H (11.5-14.5) % MPV 8.6 L (9.5-12.2) FL Eosinophils # (Manual) 0.41 H (0.04-0.35) X 10*3/uL Metamyelocytes # (Man) 0.18 H (0) k/uL Myelocytes # (Manual) 0.36 H (0) k/uL NRBC/100 WBC Diff 0.06 H (0.00-0.01) X 10*3/uL BUN 4.8 L (9.0-27.0) mg/dL BUN/Creatinine Ratio 8.00 L (12.00-20.00) Ratio Calcium 8.2 L (8.7-10.3) mg/dL Assessment and Plan (1) Urinary tract infection Current Visit: Yes Status: Acute Code(s): N39.0 - URINARY TRACT INFECTION, SITE NOT SPECIFIED SNOMED Code(s): 12295436 (2) Dental infection Current Visit: Yes Status: Acute Code(s): K04.7 - PERIAPICAL ABSCESS WITHOUT SINUS SNOMED Code(s): 105454452 Plan: 1patient was in the hospital with sepsis in this patient who did have a fever elevated white count tachycardia did have significantly positive UA likely urinary source however the patient recently did have a tooth extraction and the patient has been complaining of some pain to the lower jaw a possible component of dental infection did not exclude 2-patient did have some clinical improvement with resolution of the fever and white count has normalized 3in view of clinical response recommending a 7-10 day course of Augmentin on discharge Dictation was produced using [employer] 360ation software. please excuse any grammatical, word or spelling errors. Time with Patient: Less than 30
--- NOTE | 2023-01-26 08:30 | P.DS ---
Providers Date of admission: 01/17/23 19:05 Attending physician: Donald Louis Consults: 01/17/23 19:05 Consult Physician Urgent Consulting Provider: Brant Nieves Consult Reason/Comments: seizure Do you want consulting provider notified?: Yes Consult Physician Urgent Consulting Provider: Addis Daugherty Consult Reason/Comments: Acute kidney injury Do you want consulting provider notified?: Yes 01/18/23 09:35 Consult Physician Routine Consulting Provider: Prosper Silva Consult Reason/Comments: Severe sepsis, UTI Do you want consulting provider notified?: Yes 01/21/23 09:01 Consult Physician Routine Consulting Provider: Oswaldo Merino Consult Reason/Comments: uterine prlapse, with Severe mennorhagia Do you want consulting provider notified?: Yes 01/21/23 12:19 Consult Physician Routine Consulting Provider: Wellington Salvador Consult Reason/Comments: History of gastric sleeve with recurrent postprandial vomiting,eval for EGD Do you want consulting provider notified?: Yes Primary care physician: [facility] Course: Diagnoses: seizure disorder with breakthrough seizures Acute renal failure, improved Acute Urinary tract infection Vaginal bleeding, with dysfunctional interim bleeding secondary to perimenopause affect, evaluated by [employer]ER Severe sepsis from UTI, improved Retrosternal pain with recurrent nausea vomiting/history of gastric sleeve Acute hyperkalemia resolved Metabolic acidosis from renal failure/sepsis Iron deficiency anemia Hospital course: 47-year-old patient with past medical history significant for seizure disorder, migraine headaches, anxiety, depression, history of morbid obesity with gastric bypass, previous history of cellulitis secondary to MRSA, presented to the emergency department brought in by EMS after her called and patient had multiple episodes of seizures. patient evaluated by neurologist and her seizures looks provoked nausea vomiting and also infection and acute urinary tract infection, and uses is currently controlled with resuming her home medication and controlling her GI and urinary symptoms. Patient is kept on Depakote and Vimpat and prescription provided for her for 1 month total she follows up with her neurologist Dr. Galeano in early 02/15/2023 to discuss with him his further seizure management and medication adjustment as needed. Also patient responded to treatment with antibiotic Unasyn and switched to Augmentin upon discharge by infectious disease team. On discharge patient denies any other urinary symptoms. Patient will be discharged on short course of 19. Further workup for recurrent nausea vomiting with barium swallow showed irregularity at the GE junction, she underwent EGD with Gen. surgery team found to have mild gastritis. Biopsy was taken and patient was informed to follow up with Dr. Butts her for her biopsies result, risk of cancer explained for her and she verbalized understanding and acceptance. Her acute kidney injury resolved. She had some perimenopausal vaginal bleeding evaluated by pipeline technician and a for discharge. On discharge patient says her vaginal bleeding almost stopped. Her vitals and hemoglobin is stable upon discharge. Today patient is back to baseline, she denies any other symptoms no chest pain or dyspnea. No abdominal pain vomiting or diarrhea, no dysuria or urgency or other urinary complaints, no suprapubic tenderness or flank tenderness. Get up and go test Was Normal. at Bedside and He Agrees with This Patient Is Back to Baseline and He Agrees to Go Home Today. Also Patient agrees to Be Discharged Today. Patient Was Cleared for Discharge by all consultants including [employer] was and off, general surgery, neurologist, level vial inspector and infectious disease seen. Problems and management plan were discussed with the patient and he verbalized understanding and acceptance Patient was found stable and can be discharged home in guarded prognosis however he needs follow-up as an outpatient. Patient was instructed to follow up with PCP Dr. Casey within one week and patient agrees Patient was instructed to follow up with her neurologist Dr. Galeano and she agrees with appointment on 02/15/23 and follow-up with her level vial inspector Dr. Daugherty in 1-2 weeks [address] pipeline technician [address] Merino in one week, and Dr. Butts in 1-2 weeks Physical exam Gen: patient is a AAOx3, no distress CVS: S1-S2, RRR, no murmur Lungs: B/L CTA, no wheezing Abdomen: soft, no distention, no tenderness, positive bowel sounds Extremity: no leg edema or induration Time spent more than 35 minutes Patient Condition at Discharge: Good Plan - Discharge Summary Discharge Rx Participant: Yes New Discharge Prescriptions: New Omeprazole [PriLOSEC] 20 mg PO AC-BID 30 Days #60 cap Ondansetron Odt [Zofran ODT] 4 mg PO Q8HR PRN 2 Days #8 tab PRN Reason: Nausea Amoxic-Pot Clav 875-125Mg [Augmentin 875-125] 1 tab PO Q12HR 6 Days #12 tab Ferrous Sulfate [Iron (65 MG Elemental)] 325 mg PO BID-W/MEALS #60 tab Cholestyramine (with Sugar) [Questran Packet] 4 gm PO DAILY 3 Days #3 packet Continue HYDROcodone/APAP 5-325MG [[place] 5-325] 1 tab PO BID PRN PRN Reason: Pain Divalproex Sodium [Depakote] 500 mg PO BID@1000,2200 #60 tab Lacosamide [Vimpat] 100 mg PO QID@04,10,16,22 #120 tab Acetaminophen Tab [Tylenol] 500 mg PO Q8H PRN PRN Reason: Pain Discontinued Ibuprofen [Motrin] 800 mg PO Q8H PRN PRN Reason: Pain Discharge Medication List HYDROcodone/APAP 5-325MG [[place] 5-325] 1 tab PO BID PRN 06/19/22 [History] Acetaminophen Tab [Tylenol] 500 mg PO Q8H PRN 01/17/23 [History] Amoxic-Pot Clav 875-125Mg [Augmentin 875-125] 1 tab PO Q12HR 6 Days #12 tab 01/25/23 [Rx] Cholestyramine (with Sugar) [Questran Packet] 4 gm PO DAILY 3 Days #3 packet 01/25/23 [Rx] Divalproex Sodium [Depakote] 500 mg PO BID@1000,2200 #60 tab 01/25/23 [Rx] Ferrous Sulfate [Iron (65 MG Elemental)] 325 mg PO BID-W/MEALS #60 tab 01/25/23 [Rx] Lacosamide [Vimpat] 100 mg PO QID@04,10,16,22 #120 tab 01/25/23 [Rx] Omeprazole [PriLOSEC] 20 mg PO AC-BID 30 Days #60 cap 01/25/23 [Rx] Ondansetron Odt [Zofran ODT] 4 mg PO Q8HR PRN 2 Days #8 tab 01/25/23 [Rx] Follow up Appointment(s)/Referral(s): Addis Daugherty MD [STAFF PHYSICIAN] - 2 Weeks (kidney doctor) Oswaldo Merino MD [STAFF PHYSICIAN] - 1 Week (please call to make your appointment.) Brant Galeano MD [STAFF PHYSICIAN] - 02[facility]15/23 10:[facility] [place] [facility] - 1 Week Pauline Saucedo [Primary Care Provider] - 02/02/23 11:15 am Patient Instructions/Handouts: Seizure/Epilepsy Discharge Instructions & Follow-Up Activity/Diet/Wound Care/Special Instructions: Heart healthy diet activity is restricted till you see your doctor Discharge Disposition: HOME SELF-CARE
--- NOTE | 2023-01-27 22:01 | CDI ---
Documentation Clarification Form Date: 01/27/2023 09:34:33 PM From: Bety Sales Phone: Admit Date: 01/17/2023 07:05:00 PM Patient Name: Brooke Aviles Visit Number: [id number] Discharge Date: 01/25/2023 06:37:00 PM ATTENTION: The Clinical Documentation Specialists (CDI) and [facility] Coding Staff appreciate your assistance in clarifying documentation. Please respond to the clarification below the line at the bottom and electronically sign. The CDI & [facility] Coding staff will review the response and follow-up if needed. Please note: Queries are made part of the Legal Health Record. If you have any questions, please contact the author of this message via ITS. Dr. Brant Nieves Encephalopathy is documented Progress Note 01/19. Additional clarification regarding the type of encephalopathy is requested. History/Risk Factors: 47yo F, severe sepsis, breakthroughseizures, ATN, UTI, vaginal bleeding, withdysfxbleedingd/t perimenopause Clinical Indicators: Labs: hyperkalemia, metabolic/lactic acidosis, FLORENTIN, ToxicVacuolation, Polychromasia, Hypochromasia EEG: This is anabnormalroutineEEG. The background slowing issuggestive ofmild encephalopathy. Theexcessivebeta activity is due to medication effect (Ativan). There isnofocal slowing, epileptiform discharge, orseizureon theEEG. Clinical correlation is recommended. CT/MRI Brain: No acute intracranial process. Follow-upMRIcan be performed as clinically indicated. Treatment: Patient was recommended to discuss with primary neurologistDr. Galeano, if she continues to havetremorsthat are bothersome to her, to try to switch to a different antiepileptic medication, as Depakote can producetremors. Please clarify the type of encephalopathy, if known: [ ] Metabolic Encephalopathy [ ] Septic Encephalopathy [ ] Toxic Encephalopathy [ ] Other, please specify [ ] Unable to determine -->metabolic encephalopathy (Template Last Revised: April 2020) MTDD
== END 2023-01-25 18:37 | disposition home or self-care (01) | DRG 720 ==
LOC: EC 14:41 → 4SSUR 19:05 → 5NMEDONC 01-18 12:07
PROVIDERS: ADMIT Hospitalist; ATTEND Hospitalist
PROC: 30233N1 Transfusion of Nonautologous Red Blood Cells into Peripheral Vein, Percutaneous Approach (ICD-10-PCS; 2023-01-19)
PROC: 05HC33Z Insertion of Infusion Device into Left Basilic Vein, Percutaneous Approach (ICD-10-PCS; 2023-01-19)
PROC: 0DB78ZX Excision of Stomach, Pylorus, Via Natural or Artificial Opening Endoscopic, Diagnostic (ICD-10-PCS; principal; 2023-01-24 08:30)
DX: A41.9 Sepsis, unspecified organism (principal); N17.0 Acute kidney failure with tubular necrosis; G93.41 Metabolic encephalopathy; K22.10 Ulcer of esophagus without bleeding; G40.909 Epilepsy, unspecified, not intractable, without status epilepticus; R65.20 Severe sepsis without septic shock; D50.9 Iron deficiency anemia, unspecified; F32.A Depression, unspecified; N39.0 Urinary tract infection, site not specified; E87.5 Hyperkalemia; M54.9 Dorsalgia, unspecified; E28.2 Polycystic ovarian syndrome; N81.4 Uterovaginal prolapse, unspecified; F41.9 Anxiety disorder, unspecified; E86.9 Volume depletion, unspecified; T39.395A Adverse effect of other nonsteroidal anti-inflammatory drugs [NSAID], initial encounter; N14.0 Analgesic nephropathy; K04.7 Periapical abscess without sinus; K21.00 Gastro-esophageal reflux disease with esophagitis, without bleeding; K29.70 Gastritis, unspecified, without bleeding; N92.0 Excessive and frequent menstruation with regular cycle; N93.8 Other specified abnormal uterine and vaginal bleeding; N92.4 Excessive bleeding in the premenopausal period; T42.76XA Underdosing of unspecified antiepileptic and sedative-hypnotic drugs, initial encounter; T42.6X5A Adverse effect of other antiepileptic and sedative-hypnotic drugs, initial encounter; R13.10 Dysphagia, unspecified; R25.1 Tremor, unspecified; Z87.891 Personal history of nicotine dependence; Z91.148 Patient's other noncompliance with medication regimen for other reason; Z98.84 Bariatric surgery status; Z86.14 Personal history of Methicillin resistant Staphylococcus aureus infection; Z79.899 Other long term (current) drug therapy; Z88.6 Allergy status to analgesic agent; Z88.8 Allergy status to other drugs, medicaments and biological substances
CPT/HCPCS: 36410; 36415; 43239; 70450; 74240; 76770; 76937; 80048; 80053; 80143; 80164; 80235; 81001; 83540; 83550; 83605; 83735; 84703; 85025; 85027; 86140; 86850; 86900; 86901; 86920; 87040; 88305; 88312; 93005; 95819; 96361; 96365; 96366; 96375; 96376; 99285

== ENCOUNTER 2023-04-09 05:34 | Emergency (ER) | payer OTHER ==
[2023-04-09] MEDS: LORazepam 2 MG/ML INJ IV STA ×2 (06:27→09:47)
[2023-04-09] MEDS: SODIUM CHLORIDE 0.9% 1,000 ML IV STA (06:27)
--- NOTE | 2023-04-09 06:50 | ED ---
ENT HPI - General Chief complaint: Dental/Oral Stated complaint: Facial abcess Time Seen by Provider: 04/09/23 05:41 Source: patient, RN notes reviewed Mode of arrival: ambulatory Limitations: no limitations - History of Present Illness Initial comments: 47-year-old female presents emergency department with chief complaint of facial pain. Patient states that she started having facial pain last couple days. Patient states there is an abscess on side of her cheek. She was recently admitted for an abscess of her lower abdomen. Patient does have a history of seizures. Patient reported had a seizure in the room. This is not uncommon for the patient patient is on Vimpat. - Related Data Home Medications Medication Instructions Recorded Confirmed HYDROcodone/APAP 5-325MG [[place] 1 tab PO BID PRN 06/19/22 01/17/23 5-325] Acetaminophen Tab [Tylenol] 500 mg PO Q8H PRN 01/17/23 01/17/23 Previous Rx's Medication Instructions Recorded Amoxic-Pot Clav 875-125Mg 1 tab PO Q12HR 6 Days #12 tab 01/25/23 [Augmentin 875-125] Cholestyramine (with Sugar) 4 gm PO DAILY 3 Days #3 packet 01/25/23 [Questran Packet] Divalproex Sodium [Depakote] 500 mg PO BID@1000,2200 #60 tab 01/25/23 Ferrous Sulfate [Iron (65 MG 325 mg PO BID-W/MEALS #60 tab 01/25/23 Elemental)] Lacosamide [Vimpat] 100 mg PO QID@04,10,16,22 #120 tab 01/25/23 Omeprazole [PriLOSEC] 20 mg PO AC-BID 30 Days #60 cap 01/25/23 Ondansetron Odt [Zofran ODT] 4 mg PO Q8HR PRN 2 Days #8 tab 01/25/23 Cephalexin [Keflex] 500 mg PO Q6HR #40 cap 04/09/23 Sulfamethox-Tmp 800-160Mg [Bactrim 1 each PO Q12HR #20 tab 04/09/23 Ds] Allergies Allergy/AdvReac Type Severity Reaction Status Date / Time aspirin AdvReac see comment Verified 04/09/23 05:41 ibuprofen [From Motrin] AdvReac see comment Verified 04/09/23 05:41 levetiracetam [From [facility]] AdvReac Seizures Verified 04/09/23 05:41 Review of Systems ROS Statement: Those systems with pertinent positive or pertinent negative responses have been documented in the HPI. ROS Other: All systems not noted in ROS Statement are negative. Past Medical History Past Medical History: GERD/Reflux, Seizure Disorder Additional Past Medical History / Comment(s): Hx of migraines, elevated HR, one seizure/unknown cause 2016; "Severe reflux, awakening in noc w/ choking since gastric sleeve surgery." History of Any Multi-Drug Resistant Organisms: MRSA Date of last positivie culture/infection: 08/30/20 MDRO Source:: Right Thigh Past Surgical History: Bariatric Surgery, Cholecystectomy, Orthopedic Surgery Additional Past Surgical History / Comment(s): lap band 2009, gastic sleeve 04/03; EGD; IVF; metatarsus abduction/age 6; Past Anesthesia/Blood Transfusion Reactions: No Reported Reaction, Motion Sickness, Postoperative Nausea & Vomiting (PONV) Additional Past Anesthesia/Blood Transfusion Reaction / Comment(s): no hx of blood transfusion Past Psychological History: Anxiety, Depression Smoking Status: Never smoker Past Alcohol Use History: None Reported Past Drug Use History: None Reported - Past Family History Mother Family Medical History: Cancer, Hypertension Additional Family Medical History / Comment(s): Breast CA Brother(s) Family Medical History: No Reported History Father History Unknown: Yes Additional Family Medical History / Comment(s): father of suicide . General Exam Limitations: no limitations General appearance: alert, in no apparent distress Head exam: Present: atraumatic, normocephalic, normal inspection Eye exam: Present: normal appearance, PERRL, EOMI. Absent: scleral icterus, conjunctival injection, periorbital swelling ENT exam: Present: normal oropharynx, mucous membranes moist, TM's normal bilaterally, normal external ear exam. Absent: normal exam (Left side of the chin there is an abscess noted) Neck exam: Present: normal inspection, full ROM. Absent: tenderness, meningismus, lymphadenopathy Respiratory exam: Present: normal lung sounds bilaterally. Absent: respiratory distress, wheezes, rales, rhonchi, stridor Cardiovascular Exam: Present: regular rate, normal rhythm, normal heart sounds. Absent: systolic murmur, diastolic murmur, rubs, gallop, clicks Course Vital Signs 04/09/23 04/09/23 04/09/23 05:35 06:29 06:40 Temperature 98.8 F Pulse Rate 97 81 75 Respiratory 20 16 11 L Rate Blood Pressure 155/124 149/91 149/91 O2 Sat by Pulse 96 100 99 Oximetry 04/09/23 07:29 Temperature Pulse Rate 66 Respiratory 18 Rate Blood Pressure 106/53 O2 Sat by Pulse 97 Oximetry Medical Decision Making - Medical Decision Making Was pt. sent in by a medical professional or institution (, [facility], BUILDING OFFICIAL, urgent care, hospital, or alf...) When possible be specific @ -No Did you speak to anyone other than the patient for history (EMS, parent, family, police, friend...)? What history was obtained from this source @ -No Did you review nursing and triage notes (agree or disagree)? Why? @ -I reviewed and agree with nursing and triage notes Were old charts reviewed (outside hosp., previous admission, EMS record, old EKG, old radiological studies, urgent care reports/EKG's, alf records)? Report findings @ -[Reviewed prior labs, microbiology Differential Diagnosis (chest pain, altered mental status, abdominal pain women, abdominal pain men, vaginal bleeding, weakness, fever, dyspnea, syncope, head ache, dizziness, GI bleed, back pain, seizure, CVA, palpatations, mental health, musculoskeletal)? @ -Facial abscess, differential Seizure: Recurrent seizure disorder, febrile seizure, alcohol withdrawal, stimulants, meningitis, encephalitis, intercranial hemorrhage, intracranial tumor, stroke, eclampsia, thyrotoxicosis, hypocalcemia, hyponatremia, hypernatremia, hypomagnesemia, psychogenic, this is not meant to be an all-inclusive list. EKG interpreted by me (3pts min.). @ -As above X-rays interpreted by me (1pt min.). @ -None done CT interpreted by me (1pt min.). @ -None done U/S interpreted by me (1pt. min.). @ -None done What testing was considered but not performed or refused? (CT, X-rays, U/S, labs)? Why? @ -None What meds were considered but not given or refused? Why? @ -None Did you discuss the management of the patient with other professionals (professionals i.e. , PA, BUILDING OFFICIAL, lab, RT, psych nurse, social science analyst, audiologist, teacher, field crop technical officer, nurse outreach case manager)? Give summary @ -No Was smoking cessation discussed for >3mins.? @ -No Was critical care preformed (if so, how long)? @ -No Were there social determinants of health that impacted care today? How? (Homelessness, low income, unemployed, alcoholism, drug addiction, transportation, low edu. Level, literacy, decrease access to med. care, custodial, rehab)? @ -No Was there de-escalation of care discussed even if they declined (Discuss DNR or withdrawal of care, Hospice)? DNR status @ -No What co-morbidities impacted this encounter? (DM, HTN, Smoking, COPD, CAD, Cancer, CVA, ARF, Chemo, Hep., AIDS, mental health diagnosis, sleep apnea, morbid obesity)? @ -[Seizures Was patient admitted / discharged? Hospital course, mention meds given and route, prescriptions, significant lab abnormalities, going to OR and other per tinent info. @ -Discharge patient presented for facial abscess. Laboratory studies unremarkable. Patient did have witnessed generalized seizure she has a history of seizures. Patient is stable for discharge with close follow-up return parameters discussed. Undiagnosed new problem with uncertain prognosis? @ -No Drug Therapy requiring intensive monitoring for toxicity (Heparin, Nitro, Insulin, Cardizem)? @ -No Were any procedures done? @ -No Diagnosis/symptom? @ -Face abscess, seizure Acute, or Chronic, or Acute on Chronic? @ -[Acute Uncomplicated (without systemic symptoms) or Complicated (systemic symptoms)? @ -Uncomplicated Side effects of treatment? @ -No Exacerbation, Progression, or Severe Exacerbation? @ -No Poses a threat to life or bodily function? How? (Chest pain, USA, MS, pneumonia, PE, COPD, DKA, ARF, appy, cholecystitis, CVA, Diverticulitis, Homicidal, Suicidal, threat to staff... and all critical care pts) @ -No - Lab Data Result diagrams: 04/09/23 06:57 04/09/23 06:57 Lab Results 04/09/23 04/09/23 Range/Units 06:57 06:57 WBC 8.3 (3.8-10.6) k/uL RBC 3.77 L (3.80-5.40) m/uL Hgb 11.4 (11.4-16.0) gm/dL Hct 35.2 (34.0-46.0) % MCV 93.5 (80.0-100.0) fL MCH 30.4 (25.0-35.0) pg MCHC 32.5 (31.0-37.0) g/dL RDW 17.5 H (11.5-15.5) % Plt Count 286 (150-450) k/uL MPV 7.0 Neutrophils % 61 % Lymphocytes % 26 % Monocytes % 9 % Eosinophils % 2 % Basophils % 1 % Neutrophils # 5.1 (1.3-7.7) k/uL Lymphocytes # 2.1 (1.0-4.8) k/uL Monocytes # 0.8 (0-1.0) k/uL Eosinophils # 0.2 (0-0.7) k/uL Basophils # 0.0 (0-0.2) k/uL Anisocytosis Slight Sodium 136 L (137-145) mmol/L Potassium 5.9 H (3.5-5.1) mmol/L Chloride 109 H (98-107) mmol/L Carbon Dioxide 24 (22-30) mmol/L Anion Gap 3 mmol/L BUN 17 (7-17) mg/dL Creatinine 0.58 (0.52-1.04) mg/dL Est GFR (CKD-EPI)AfAm >90 (>60 ml/min/1.73 sqM) Est GFR (CKD-EPI)NonAf >90 (>60 ml/min/1.73 sqM) Glucose 81 (74-99) mg/dL Calcium 7.8 L (8.4-10.2) mg/dL Magnesium 1.8 (1.6-2.3) mg/dL Total Bilirubin 0.8 (0.2-1.3) mg/dL AST 80 H (14-36) U/L ALT 22 (4-34) U/L Alkaline Phosphatase 41 (38-126) U/L Total Protein 6.1 L (6.3-8.2) g/dL Albumin 3.5 (3.5-5.0) g/dL - EKG Data -: EKG Interpreted by Me EKG Comments: EKG performed at 6: 29 sinus rhythm rate of 85 OK 147 QRS 88 QT/QTc 356/398 Disposition Clinical Impression: Facial abscess, Generalized seizure Disposition: HOME SELF-CARE Condition: Stable Instructions (If sedation given, give patient instructions): Abscess (ED) Additional Instructions: Please return to the Emergency Department if symptoms worsen or any other concerns. Prescriptions: Sulfamethox-Tmp 800-160Mg [Bactrim Ds] 1 each PO Q12HR #20 tab Cephalexin [Keflex] 500 mg PO Q6HR #40 cap Is patient prescribed a controlled substance at d/c from ED?: No Referrals: Pauline Saucedo [Primary Care Provider] - 1-2 days Time of Disposition: 07:57
[2023-04-09] MEDS: HYDROmorphone 0.5 MG/0.5 ML SYRINGE IVP STA ×3 (06:51→09:17)
[2023-04-09 07:10] LABS: Anisocytosis Slight; Basophils % (A) 1 %; Eosinophils # (A) 0.2 k/uL (0-0.7); Eosinophils % (A) 2 %; HCT 35.2 % (34.0-46.0); HGB 11.4 gm/dL (11.4-16.0); Lymphocytes # (A) 2.1 k/uL (1.0-4.8); Lymphocytes % (A) 26 %; MCH 30.4 pg (25.0-35.0); MCHC 32.5 g/dL (31.0-37.0); MCV 93.5 fL (80.0-100.0); Monocytes # (A) 0.8 k/uL (0-1.0); Monocytes % (A) 9 %; Neutrophils # (A) 5.1 k/uL (1.3-7.7); Neutrophils % (A) 61 %; Platelet Count 286 k/uL (150-450); RBC 3.77 m/uL (3.80-5.40); RDW 17.5 % (11.5-15.5); WBC 8.3 k/uL (3.8-10.6)
[2023-04-09 07:17] LABS: ALT 22 U/L (4-34); African American GFR (CKD) >90 (>60 ml/min/1.73 sqM); Anion Gap 3 mmol/L; Blood Urea Nitrogen 17 mg/dL (7-17); Calcium 7.8 mg/dL (8.4-10.2); Carbon Dioxide 24 mmol/L (22-30); Chloride 109 mmol/L (98-107); Glucose 81 mg/dL (74-99); Non-African American GFR(CKD) >90 (>60 ml/min/1.73 sqM); Sodium 136 mmol/L (137-145)
[2023-04-09 07:23] LABS: AST 80 U/L (14-36); Albumin 3.5 g/dL (3.5-5.0); Alkaline Phosphatase 41 U/L (38-126); Magnesium 1.8 mg/dL (1.6-2.3); Potassium 5.9 mmol/L (3.5-5.1); Total Bilirubin 0.8 mg/dL (0.2-1.3); Total Protein 6.1 g/dL (6.3-8.2)
[2023-04-09 07:26] VITALS: TEMP 98.8
[2023-04-09 07:57] VITALS: BP 106/53; PULSE 66; RESP 18
[2023-04-09] MEDS: CLINDAMYCIN 600 MG in DEXTROSE 5% IN WATER 50 ML IVPB STA (08:02)
== END 2023-04-09 10:01 | disposition home or self-care (01) ==
LOC: EC 05:34
DX: L02.01 Cutaneous abscess of face (principal); G40.409 Other generalized epilepsy and epileptic syndromes, not intractable, without status epilepticus; Z86.59 Personal history of other mental and behavioral disorders; Z88.6 Allergy status to analgesic agent; Z88.8 Allergy status to other drugs, medicaments and biological substances
CPT/HCPCS: 36415; 93005; 80053; 83735; 85025; 99284; 96365; 96375 ×2; 96376 ×3; 96361 ×2; J2060; J1170; J0736

== ENCOUNTER 2023-05-25 17:38 | Inpatient (IN) | payer BC, OTHER ==
[2023-05-25] MEDS: SODIUM CHLORIDE 0.9% 1,000 ML IV ONE ×2 (18:19→22:10)
[2023-05-25 18:22] LABS: Basophils % (A) 0 %; Eosinophils # (A) 0.2 k/uL (0-0.7); Eosinophils % (A) 2 %; HCT 33.1 % (34.0-46.0); HGB 10.1 gm/dL (11.4-16.0); Hypochromasia Moderate; Lymphocytes # (A) 1.6 k/uL (1.0-4.8); Lymphocytes % (A) 20 %; MCH 28.6 pg (25.0-35.0); MCHC 30.4 g/dL (31.0-37.0); Monocytes % (A) 13 %; Neutrophils # (A) 5.1 k/uL (1.3-7.7); Neutrophils % (A) 63 %; Platelet Count 232 k/uL (150-450); RBC 3.52 m/uL (3.80-5.40); RDW 13.7 % (11.5-15.5)
--- NOTE | 2023-05-25 18:26 | ED ---
General Adult HPI - General Chief complaint: Seizure Stated complaint: Seizure Time Seen by Provider: 05/25/23 17:40 Source: patient, EMS, RN notes reviewed, old records reviewed Mode of arrival: EMS Limitations: altered mental status - History of Present Illness Initial comments: This is a 47-year-old female who presents to the emergency department because patient had a seizure. According to EMS patient has a history of seizures and is on Vimpat and Depakote. Patient was given 5 IM of Versed and then another 5 of IM Versed because she did not stop seizing. Currently patient is unable to give any responses because the Versed has her sleeping soundly. There is no family member with the patient at this time so I am not able to get any further history. - Related Data Home Medications Medication Instructions Recorded Confirmed Acetaminophen Tab [Tylenol] 500 mg PO Q8H PRN 01/17/23 05/25/23 Aspirin EC [Ecotrin Low Dose] 81 mg PO DAILY 05/25/23 05/25/23 Atorvastatin Calcium [Lipitor] 40 mg PO HS 05/25/23 05/25/23 Divalproex Sodium 750 mg PO BID@0800,199905/25/23 05/25/23 HYDROcodone/APAP 7.5-325MG [[place] 1 tab PO TID PRN 05/25/23 05/25/23 7.5-325] Lacosamide [Vimpat] 150 mg PO TID 05/25/23 05/25/23 Ondansetron [Zofran] 4 mg PO TID PRN 05/25/23 05/25/23 hydrOXYzine HCL [Atarax] 25 mg PO DAILY PRN 05/25/23 05/25/23 Allergies Allergy/AdvReac Type Severity Reaction Status Date / Time aspirin AdvReac see comment Verified 05/25/23 20:26 ibuprofen [From Motrin] AdvReac see comment Verified 05/25/23 20:26 levetiracetam [From Keppra] AdvReac Seizures Verified 05/25/23 20:26 Review of Systems ROS Statement: Those systems with pertinent positive or pertinent negative responses have been documented in the HPI. ROS Other: All systems not noted in ROS Statement are negative. Past Medical History Past Medical History: GERD/Reflux, Seizure Disorder Additional Past Medical History / Comment(s): Hx of migraines, elevated HR, one seizure/unknown cause 2017; "Severe reflux, awakening in noc w/ choking since gastric sleeve surgery." History of Any Multi-Drug Resistant Organisms: MRSA Date of last positivie culture/infection: 08/30/20 MDRO Source:: Right Thigh Past Surgical History: Bariatric Surgery, Cholecystectomy, Orthopedic Surgery Additional Past Surgical History / Comment(s): lap band 2009, gastic sleeve 04/03; EGD; IVF; metatarsus abduction/age 6; Past Anesthesia/Blood Transfusion Reactions: No Reported Reaction, Motion Sickness, Postoperative Nausea & Vomiting (PONV) Additional Past Anesthesia/Blood Transfusion Reaction / Comment(s): no hx of blood transfusion Past Psychological History: Anxiety, Depression Smoking Status: Never smoker Past Alcohol Use History: None Reported Past Drug Use History: None Reported - Past Family History Mother Family Medical History: Cancer, Hypertension Additional Family Medical History / Comment(s): Breast CA Brother(s) Family Medical History: No Reported History Father History Unknown: Yes Additional Family Medical History / Comment(s): father of suicide . General Exam - General Exam Comments Initial Comments: GENERAL: Patient is well-developed and well-nourished. Patient is nontoxic and well- hydrated and is in no acute distress. Patient is sleeping she can be aroused with a little bit of painful stimuli but not aroused enough to answer questions at this time. ENT: Neck is soft and supple. No significant lymphadenopathy is noted. Oropharynx is clear. Moist mucous membranes. Neck has full range of motion without eliciting any pain. EYES: The sclera were anicteric and conjunctiva were pink and moist. Extraocular movements were intact and pupils were equal round and reactive to light. Eyelids were unremarkable. PULMONARY: Unlabored respirations. Good breath sounds bilaterally. No audible rales rhonchi or wheezing was noted. CARDIOVASCULAR: There is a regular rate and rhythm without any murmurs gallops or rubs. ABDOMEN: Soft and nontender with normal bowel sounds. SKIN: Skin is clear with no lesions or rashes and otherwise unremarkable. NEUROLOGIC: Patient is alert and oriented x3. Cranial nerves II through XII are grossly intact. Motor and sensory are also intact. Normal speech, volume and content. Symmetrical smile. MUSCULOSKELETAL: Normal extremities with adequate strength and full range of motion. LYMPHATICS: No significant lymphadenopathy is noted PSYCHIATRIC: Normal psychiatric evaluation. Limitations: altered mental status Course Vital Signs 05/25/23 05/25/23 05/25/23 17:43 17:46 17:50 Pulse Rate 102 H 92 85 Respiratory 19 18 18 Rate Blood Pressure 130/81 130/81 O2 Sat by Pulse 78 L 99 Oximetry 05/25/23 05/25/23 05/25/23 18:00 18:30 19:00 Pulse Rate 96 87 79 Respiratory 21 18 17 Rate Blood Pressure 130/81 132/86 121/73 O2 Sat by Pulse 96 100 100 Oximetry Medical Decision Making - Medical Decision Making EKG is interpreted by myself read EKG shows sinus rhythm at 95 bpm MO interval is 123 QRS is 92 QT interval 334 QTc is 386. Patient's EKG shows no ST segment ovation or depression. Was pt. sent in by a medical professional or institution (, PA, LASER MACHINE OPERATOR, urgent care, hospital, or skilled nursing...) When possible be specific @ -No Did you speak to anyone other than the patient for history (EMS, parent, family, police, friend...)? What history was obtained from this source @ -EMS gave all of the history since no one came with the patient and the patient is unable to speak at this time Did you review nursing and triage notes (agree or disagree)? Why? @ -I reviewed and agree with nursing and triage notes Were old charts reviewed (outside hosp., previous admission, EMS record, old EKG , old radiological studies, urgent care reports/EKG's, skilled nursing records)? Report findings @ -No old charts were reviewed Differential Diagnosis (chest pain, altered mental status, abdominal pain women, abdominal pain men, vaginal bleeding, weakness, fever, dyspnea, syncope, headache, dizziness, GI bleed, back pain, seizure, CVA, palpatations, mental health, musculoskeletal)? @ -Differential Seizure: Recurrent seizure disorder, febrile seizure, alcohol withdrawal, stimulants, meningitis, encephalitis, intercranial hemorrhage, intracranial tumor, stroke, eclampsia, thyrotoxicosis, hypocalcemia, hyponatremia, hypernatremia, hypomagnesemia, psychogenic, this is not meant to be an all-inclusive list. EKG interpreted by me (3pts min.). @ -As above X-rays interpreted by me (1pt min.). @ -None done CT interpreted by me (1pt min.). @ -CT of the brain shows no acute abnormality U/S interpreted by me (1pt. min.). @ -None done What testing was considered but not performed or refused? (CT, X-rays, U/S, labs)? Why? @ -None What meds were considered but not given or refused? Why? @ -None Did you discuss the management of the patient with other professionals (professionals i.e. DrJanet, PA, LASER MACHINE OPERATOR, lab, RT, psych nurse, hospice social worker, hospital pharmacy technician, teacher, network security officer, case repairer)? Give summary @ -I spoke with [facility] they agreed admit the patient Was smoking cessation discussed for >3mins.? @ -No Was critical care preformed (if so, how long)? @ -No Were there social determinants of health that impacted care today? How? (Homelessness, low income, unemployed, alcoholism, drug addiction, transportation, low edu. Level, literacy, decrease access to med. care, long-term, rehab)? @ -No Was there de-escalation of care discussed even if they declined (Discuss DNR or withdrawal of care, Hospice)? DNR status @ -No What co-morbidities impacted this encounter? (DM, HTN, Smoking, COPD, CAD, Cancer, CVA, ARF, Chemo, Hep., AIDS, mental health diagnosis, sleep apnea, morbid obesity)? @ -None Was patient admitted / discharged? Hospital course, mention meds given and route, prescriptions, significant lab abnormalities, going to OR and other pertinent info. @ -Patient was slowly waking up but still wait to unresponsive to send home so patient will be admitted to [facility]. Undiagnosed new problem with uncertain prognosis? @ -No Drug Therapy requiring intensive monitoring for toxicity (Heparin, Nitro, Insulin, Cardizem)? @ -No Were any procedures done? @ -No Diagnosis/symptom? @ -Seizure Acute, or Chronic, or Acute on Chronic? @ -Acute Uncomplicated (without systemic symptoms) or Complicated (systemic symptoms)? @ -Complicated Side effects of treatment? @ -No Exacerbation, Progression, or Severe Exacerbation? @ -No Poses a threat to life or bodily function? How? (Chest pain, [place], [place], pneumonia, PE, COPD, DKA, ARF, appy, cholecystitis, CVA, Diverticulitis, Homicidal, Suicidal, threat to staff... and all critical care pts) @ -No - Lab Data Result diagrams: 05/25/23 17:57 05/25/23 17:57 Lab Results 05/25/23 05/25/23 05/25/23 Range/Units 17:57 17:57 17:57 WBC 8.0 (3.8-10.6) k/uL RBC 3.52 L (3.80-5.40) m/uL Hgb 10.1 L (11.4-16.0) gm/dL Hct 33.1 L (34.0-46.0) % MCV 94.0 (80.0-100.0) fL MCH 28.6 (25.0-35.0) pg MCHC 30.4 L (31.0-37.0) g/dL RDW 13.7 (11.5-15.5) % Plt Count 232 (150-450) k/uL MPV 7.0 Neutrophils % 63 % Lymphocytes % 20 % Monocytes % 13 % Eosinophils % 2 % Basophils % 0 % Neutrophils # 5.1 (1.3-7.7) k/uL Lymphocytes # 1.6 (1.0-4.8) k/uL Monocytes # 1.0 (0-1.0) k/uL Eosinophils # 0.2 (0-0.7) k/uL Basophils # 0.0 (0-0.2) k/uL Hypochromasia Moderate Sodium 139 (137-145) mmol/L Potassium 4.0 (3.5-5.1) mmol/L Chloride 109 H (98-107) mmol/L Carbon Dioxide 26 (22-30) mmol/L Anion Gap 4 mmol/L BUN 17 (7-17) mg/dL Creatinine 0.73 (0.52-1.04) mg/dL Est GFR (CKD-EPI)AfAm >90 (>60 ml/min/1.73 sqM) Est GFR (CKD-EPI)NonAf >90 (>60 ml/min/1.73 sqM) Glucose 91 (74-99) mg/dL Plasma Lactic Acid Prosper 0.8 (0.7-2.0) mmol/L Calcium 8.5 (8.4-10.2) mg/dL Magnesium 1.8 (1.6-2.3) mg/dL Total Bilirubin 0.4 (0.2-1.3) mg/dL AST 16 (14-36) U/L ALT 10 (4-34) U/L Alkaline Phosphatase 57 (38-126) U/L Total Protein 6.0 L (6.3-8.2) g/dL Albumin 3.4 L (3.5-5.0) g/dL Urine Opiates Screen (NotDetected) Ur Oxycodone Screen (NotDetected) Urine Methadone Screen (NotDetected) Ur Barbiturates Screen (NotDetected) Valproic Acid 58.9 ug/mL U Tricyclic Antidepress (NotDetected) Ur Phencyclidine Scrn (NotDetected) Ur Amphetamines Screen (NotDetected) U Methamphetamines Scrn (NotDetected) U Benzodiazepines Scrn (NotDetected) Urine Cocaine Screen (NotDetected) U Marijuana (THC) Screen (NotDetected) 05/25/23 Range/Units 20:06 WBC (3.8-10.6) k/uL RBC (3.80-5.40) m/uL Hgb (11.4-16.0) gm/dL Hct (34.0-46.0) % MCV (80.0-100.0) fL MCH (25.0-35.0) pg MCHC (31.0-37.0) g/dL RDW (11.5-15.5) % Plt Count (150-450) k/uL MPV Neutrophils % % Lymphocytes % % Monocytes % % Eosinophils % % Basophils % % Neutrophils # (1.3-7.7) k/uL Lymphocytes # (1.0-4.8) k/uL Monocytes # (0-1.0) k/uL Eosinophils # (0-0.7) k/uL Basophils # (0-0.2) k/uL Hypochromasia Sodium (137-145) mmol/L Potassium (3.5-5.1) mmol/L Chloride (98-107) mmol/L Carbon Dioxide (22-30) mmol/L Anion Gap mmol/L BUN (7-17) mg/dL Creatinine (0.52-1.04) mg/dL Est GFR (CKD-EPI)AfAm (>60 ml/min/1.73 sqM) Est GFR (CKD-EPI)NonAf (>60 ml/min/1.73 sqM) Glucose (74-99) mg/dL Plasma Lactic Acid Prosper (0.7-2.0) mmol/L Calcium (8.4-10.2) mg/dL Magnesium (1.6-2.3) mg/dL Total Bilirubin (0.2-1.3) mg/dL AST (14-36) U/L ALT (4-34) U/L Alkaline Phosphatase (38-126) U/L Total Protein (6.3-8.2) g/dL Albumin (3.5-5.0) g/dL Urine Opiates Screen Detected H (NotDetected) Ur Oxycodone Screen Not Detected (NotDetected) Urine Methadone Screen Not Detected (NotDetected) Ur Barbiturates Screen Not Detected (NotDetected) Valproic Acid ug/mL U Tricyclic Antidepress Not Detected (NotDetected) Ur Phencyclidine Scrn Not Detected (NotDetected) Ur Amphetamines Screen Not Detected (NotDetected) U Methamphetamines Scrn Not Detected (NotDetected) U Benzodiazepines Scrn Not Detected (NotDetected) Urine Cocaine Screen Not Detected (NotDetected) U Marijuana (THC) Screen Not Detected (NotDetected) Disposition Clinical Impression: Generalized seizure Disposition: ADMITTED IP TO THIS [facility] Time of Disposition: 20:07
[2023-05-25 18:28] LABS: ALT 10 U/L (4-34); AST 16 U/L (14-36); African American GFR (CKD) >90 (>60 ml/min/1.73 sqM); Albumin 3.4 g/dL (3.5-5.0); Alkaline Phosphatase 57 U/L (38-126); Anion Gap 4 mmol/L; Blood Urea Nitrogen 17 mg/dL (7-17); Calcium 8.5 mg/dL (8.4-10.2); Carbon Dioxide 26 mmol/L (22-30); Chloride 109 mmol/L (98-107); Glucose 91 mg/dL (74-99); Magnesium 1.8 mg/dL (1.6-2.3); Non-African American GFR(CKD) >90 (>60 ml/min/1.73 sqM); Sodium 139 mmol/L (137-145); Total Bilirubin 0.4 mg/dL (0.2-1.3)
[2023-05-25 18:33] LABS: Valproic Acid (Depakene) 58.9 ug/mL
[2023-05-25 20:56] LABS: Amphetamine Screen,Urine Not Detected (NotDetected); Barbiturate Screen,Urine Not Detected (NotDetected); Benzodiazepines Screen,Urine Not Detected (NotDetected); Cocaine Screen,Urine Not Detected (NotDetected); Methadone Screen, Urine Not Detected (NotDetected); Opiate Screen,Urine Detected (NotDetected); Oxycodone Screen, Urine Not Detected (NotDetected); Phencyclidine Screen,Urine Not Detected (NotDetected); Tricyclic Antidepressant,Urine Not Detected (NotDetected); Urn Cannabinoid Scrn Not Detected (NotDetected)
--- NOTE | 2023-05-25 21:12 | CT ---
EXAMINATION TYPE: CT brain wo con CT DLP: 1285.4 mGycm, Automated exposure control for dose reduction was used. DATE OF EXAM: 05/25/2023 9:03 PM COMPARISON: CT brain 01/17/2023. CLINICAL INDICATION:Female, 47 years old with history of Seizure, Seizure, AMS TECHNIQUE: Brain: Axial CT images of the brain were obtained with coronal and sagittal reformats created and rev iewed. Contrast used: None. Oral contrast used: None. FINDINGS: Brain: Extra-axial spaces: No abnormal extra-axial fluid collections. Ventricular system: Within normal limits Cerebral parenchyma: No acute intraparenchymal hemorrhage or mass effect. The bocanegra-white junction is well differentiated. Cerebellum: Unremarkable. Mass effect: No evidence of midline shift. Intracranial vasculature: unremarkable Soft tissues: Normal. Calvarium/osseous structures: No depressed skull fracture. Paranasal sinuses and mastoid air cells: Mild scattered paranasal sinus disease. Visualized orbits: Orbital contents are intact. IMPRESSION: No significant intracranial abnormality.
[2023-05-25] MEDS: Lacosamide IV (ages 17+ yrs) 200 MG/20 ML ML IVP SCH ×2 (22:05→23:02)
[2023-05-26] MEDS: LORazepam 2 MG/ML INJ IV PRN (00:30)
[2023-05-26 00:32] LABS: Glucose,Whole Blood 72 mg/dL (70-110)
[2023-05-26] MEDS: LORazepam 2 MG/ML INJ IV STA (00:56)
[2023-05-26 01:08] LABS: Glucose,Whole Blood 75 mg/dL (70-110)
[2023-05-26] MEDS ORDERED: NALOXONE 0.4 MG/ML 1 ML VIAL IV PRN (01:12)
[2023-05-26 01:31] LABS: ABG Base Excess 0.8 mmol/L; ABG HCO3 25 mmol/L (21-25); ABG Oxygen Saturation 99.4 % (94-97); ABG PCO2 37 mmHg (35-45); ABG PH 7.44 (7.35-7.45); ABG PO2 397 mmHg (83-108); ABG TCO2 26 mmol/L (19-24); Allen Test Performed? Yes
[2023-05-26] MEDS: PHENYTOIN SODIUM IVPB ONE (01:57)
[2023-05-26] MEDS: SODIUM CHLORIDE 0.9% IVPB ONE (01:57)
--- NOTE | 2023-05-26 02:06 | XR ---
EXAM: XR Chest, 1 View CLINICAL HISTORY: ITS.REASON XR Reason: Tube placement TECHNIQUE: Frontal view of the chest. COMPARISON: No relevant prior studies available. IMPRESSION: ET tube in good position. NG tube enters into the stomach and curls back towards the GE junction. Pullback 5-10 cm.
[2023-05-26 02:15] LABS: Basophils % (A) 1 %; Eosinophils # (A) 0.1 k/uL (0-0.7); Eosinophils % (A) 2 %; HCT 32.1 % (34.0-46.0); Hypochromasia Marked; Lymphocytes # (A) 1.4 k/uL (1.0-4.8); Lymphocytes % (A) 21 %; MCV 96.2 fL (80.0-100.0); Mean Platelet Volume 7.1; Monocytes # (A) 0.8 k/uL (0-1.0); Monocytes % (A) 12 %; Neutrophils # (A) 4.2 k/uL (1.3-7.7); Neutrophils % (A) 62 %; Platelet Count 202 k/uL (150-450); RBC 3.33 m/uL (3.80-5.40); RDW 13.8 % (11.5-15.5); WBC 6.8 k/uL (3.8-10.6)
[2023-05-26 02:28] LABS: HGB 9.7 gm/dL (11.4-16.0)
[2023-05-26 02:29] LABS: MCH 28.8 pg (25.0-35.0); MCHC 30.1 g/dL (31.0-37.0)
[2023-05-26 02:33] LABS: ALT 8 U/L (4-34); AST 17 U/L (14-36); African American GFR (CKD) >90 (>60 ml/min/1.73 sqM); Albumin 2.7 g/dL (3.5-5.0); Alkaline Phosphatase 51 U/L (38-126); Anion Gap 7 mmol/L; Blood Urea Nitrogen 14 mg/dL (7-17); Carbon Dioxide 19 mmol/L (22-30); Chloride 108 mmol/L (98-107); Glucose 82 mg/dL (74-99); Magnesium 1.5 mg/dL (1.6-2.3); Non-African American GFR(CKD) >90 (>60 ml/min/1.73 sqM); Potassium 3.5 mmol/L (3.5-5.1); Sodium 134 mmol/L (137-145); Total Bilirubin 0.1 mg/dL (0.2-1.3); Total Protein 5.2 g/dL (6.3-8.2)
[2023-05-26] MEDS: Lacosamide IV (ages 17+ yrs) 200 MG/20 ML ML IVP ONE (02:45)
--- NOTE | 2023-05-26 02:54 | P.CNPUL ---
History of Present Illness Consult date: 05/26/23 Requesting physician: Brant Nieves Reason for consult: other (ICU management; ventilator management) Chief complaint: Breakthrough seizures, status epilepticus History of present illness: Patient is a 47-year-old white female with past medical history significant for seizure disorder, chronic back pain, anxiety and depression, GERD with esophagitis, MRSA skin infections, among other things. Of note, patient had a recent hospital admission back in April, for breakthrough seizures. Her n eurologist is local, Dr. Galeano. Patient's is at bedside, and also states that she had a recent evaluation for possible "small stroke" at [facility] [place] 2 to 3 weeks ago. He denies recreational drug use or alcohol use. She does take [place]'s for chronic back pain. Patient is on Vimpat and Depakote at home, and patient states that she has not missed any doses. EMS was called yesterday evening for breakthrough seizure. In route, the patient received a total of 10 mg of IM Versed. At some point, the patient stopped seizing. Brain CT on arrival did not show any acute intracranial abnormality. She was admitted originally to the cardiac stepdown unit. Early this morning, the patient had a sustained seizure. I was told that this was a generalized tonic-clonic seizure involving all 4 extremities. No bowel or bladder incontinence. No tongue biting. No vomiting. A rapid response was called, and the patient did receive a total of 2 mg of IV Ativan, seizure was sustained for greater than 5 minutes. Neurology was contacted and recommended transfer to the intensive care unit and intubation for airway protection. CAPACITY PLANNING ENGINEER performed rapid sequence intubation during the A-team. The patient was moved to the intensive care unit, in room 263. On my evaluation, the patient is intubated to the mechanical ventilator. She is sedated on propofol which is currently infusing at 50 mcg/kg/min. No further seizure activity at this time. Postintubation chest x-ray shows the endotracheal tube in good location. The nasogastric tube called back to the GE junction, and could be withdrawn 5 to 10 cm. Otherwise, no acute cardiopulmonary process. Initial ventilator settings include assist- control, respiratory rate 18, tidal volume 400, FiO2 100%, and PEEP of 5. Foll ow-up ABG as a PaO2 of 397, pCO2 of 37, pH of 7.44. FiO2 was weaned down to 40%, and will be weaned down further as tolerated. Initial CBC has some normocytic normochromic anemia, hemoglobin appears stable from baseline. CMP unremarkable. CBG 75 mg/dL. Urine drug screen positive for opiates, otherwise negative. Depakote level 59. Patient will remain intubated, at least overnight. Antiepileptic medications were being adjusted per neurology. Review of Systems ROS unobtainable: due to endotracheal tube Past Medical History Past Medical History: GERD/Reflux, Seizure Disorder Additional Past Medical History / Comment(s): Hx of migraines, elevated HR, one seizure/unknown cause 2016; "Severe reflux, awakening in noc w/ choking since gastric sleeve surgery." History of Any Multi-Drug Resistant Organisms: MRSA Date of last positivie culture/infection: 08/30/20 MDRO Source:: Right Thigh Past Surgical History: Bariatric Surgery, Cholecystectomy, Orthopedic Surgery Additional Past Surgical History / Comment(s): lap band 2009, gastic sleeve 04/03; EGD; IVF; metatarsus abduction/age 6; Past Anesthesia/Blood Transfusion Reactions: No Reported Reaction, Motion Sickness, Postoperative Nausea & Vomiting (PONV) Additional Past Anesthesia/Blood Transfusion Reaction / Comment(s): no hx of blood transfusion Past Psychological History: Anxiety, Depression Smoking Status: Never smoker Past Alcohol Use History: None Reported Past Drug Use History: None Reported - Past Family History Mother Family Medical History: Cancer, Hypertension Additional Family Medical History / Comment(s): Breast CA Brother(s) Family Medical History: No Reported History Father History Unknown: Yes Additional Family Medical History / Comment(s): father of suicide . Medications and Allergies Home Medications Medication Instructions Recorded Confirmed Type Acetaminophen Tab [Tylenol] 500 mg PO Q8H PRN 01/17/23 05/25/23 History Aspirin EC [Ecotrin Low Dose] 81 mg PO DAILY 05/25/23 05/25/23 History Atorvastatin Calcium [Lipitor] 40 mg PO HS 05/25/23 05/25/23 History Divalproex Sodium 750 mg PO BID@0800,2000 05/25/23 05/25/23 History HYDROcodone/APAP 7.5-325MG [[place] 1 tab PO TID PRN 05/25/23 05/25/23 History 7.5-325] Lacosamide [Vimpat] 150 mg PO TID 05/25/23 05/25/23 History Ondansetron [Zofran] 4 mg PO TID PRN 05/25/23 05/25/23 History hydrOXYzine HCL [Atarax] 25 mg PO DAILY PRN 05/25/23 05/25/23 History Allergies Allergy/AdvReac Type Severity Reaction Status Date / Time aspirin AdvReac see comment Verified 05/25/23 20:26 ibuprofen [From Motrin] AdvReac see comment Verified 05/25/23 20:26 levetiracetam [From Keppra] AdvReac Seizures Verified 05/25/23 20:26 Physical Exam Vitals: Vital Signs Temp Pulse Pulse Resp BP BP Pulse Ox 05/26/23 01:41 05/26/23 01:11 05/26/23 00:53 96 8 L 140/74 98 05/26/23 00:48 92 135/76 05/26/23 00:41 97.6 F 80 8 L 118/74 100 05/26/23 00:15 96 8 L 05/26/23 00:12 98.7 F 75 8 L 127/81 95 05/25/23 23:38 71 18 128/74 100 05/25/23 23:16 70 18 121/78 05/25/23 22:00 107 H 20 118/76 100 05/25/23 21:54 71 18 125/85 100 05/25/23 19:00 79 17 121/73 100 05/25/23 18:30 87 18 132/86 100 05/25/23 18:00 96 21 130/81 96 05/25/23 17:50 85 18 130/81 99 05/25/23 17:46 92 18 130/81 78 L 05/25/23 17:43 102 H 19 FiO2 05/26/23 01:41 40 05/26/23 01:11 100 05/26/23 00:53 05/26/23 00:48 05/26/23 00:41 05/26/23 00:15 05/26/23 00:12 05/25/23 23:38 05/25/23 23:16 05/25/23 22:00 05/25/23 21:54 05/25/23 19:00 05/25/23 18:30 05/25/23 18:00 05/25/23 17:50 05/25/23 17:46 05/25/23 17:43 Intake and Output 05/25/23 05/25/23 05/26/23 14:59 22:59 06:59 Other: Voiding Method Incontinent External Catheter Weight 86.183 kg GENERAL EXAM: Sedated 47-year-old female, intubated to mechanical ventilator, synchronous HEAD: Normocephalic and atraumatic EYES: Normal reaction of pupils, equal size. NOSE: Clear with pink turbinates. THROAT: No erythema or exudates. NECK: No masses, no JVD. CHEST: No chest wall deformity. LUNGS: Equal air entry with no crackles, wheeze, rhonchi or dullness. Intubated and synchronous with mechanical ventilator. No substantial endotracheal secretions. CVS: S1 and S2 normal with no audible murmur, regular rhythm. No extra heart sounds ABDOMEN: No hepatosplenomegaly, active bowel sounds, no guarding or rigidity. SPINE: No scoliosis or deformity SKIN: No rashes. Left knee ecchymosis. CENTRAL NERVOUS SYSTEM: Neurologic exam limited by sedation. Does not currently follow any commands. Pupils are midline, round, equal, and reactive to light. No obvious facial asymmetry. Extremities bilaterally and throughout our flaccid. Does not withdrawal to painful stimuli. DTRs are depressed bilaterally. No posturing. Babinski neutral. EXTREMITIES: There is no peripheral edema, clubbing, or cyanosis. Peripheral pulses are intact. Results - Laboratory Findings CBC and BMP: 05/25/23 17:57 05/25/23 17:57 ABG ABG pH 7.44 (7.35-7.45) 05/26/23 01:29 ABG pCO2 37 mmHg (35-45) 05/26/23 01:29 ABG pO2 397 mmHg (83-108) H 05/26/23 01:29 ABG O2 Saturation 99.4 % (94-97) H 05/26/23 01:29 Abnormal lab findings: Abnormal Labs 05/25/23 05/25/23 05/25/23 17:57 17:57 20:06 RBC 3.52 L Hgb 10.1 L Hct 33.1 L MCHC 30.4 L ABG pO2 ABG Total CO2 ABG O2 Saturation Chloride 109 H Total Protein 6.0 L Albumin 3.4 L Urine Opiates Screen Detected H 05/26/23 01:29 RBC Hgb Hct MCHC ABG pO2 397 H ABG Total CO2 26 H ABG O2 Saturation 99.4 H Chloride Total Protein Albumin Urine Opiates Screen - Diagnostic Findings Chest x-ray: image reviewed Assessment and Plan Assessment: Status epilepticus, patient reportedly had a generalized tonic-clonic seizure, refractory to benzodiazepine administration, lasting greater than 5 minutes. Patient was intubated for airway protection. Mechanical ventilator management, patient was intubated for airway protection History of breakthrough seizures History of seizure disorder History of GERD with esophagitis History of sleeve gastrectomy Chronic anemia, hemoglobin stable History of MRSA cellulitis History of anxiety/depression Chronic back pain Possible history of TIA, as reported by spouse, will obtain records [facility] Plan: Patient has underwent rapid sequence intubation by CAPACITY PLANNING ENGINEER, and transferred to the intensive care unit. Continue on mechanical ventilator with current settings, wean FiO2 as tolerated. Chest x-ray reviewed, endotracheal tube is in adequate position Ventilator order set was placed Continue propofol for sedation, wean for appropriate RASS of 0-1 Monitor for further seizure activity Antiepileptic medications were adjusted by neurologist EEG pending CT of the brain without contrast reviewed Add seizure precautions Repeat labs are pending Heparin for DVT prophylaxis, SCDs are on, add Pepcid for GI prophylaxis Patient's is at bedside, all questions have been answered. I have personally seen and examined the patient, performed the documentation and the assessment and plan as written. Number of minutes spent on the visit:20 Time with Patient: Greater than 30
[2023-05-26] MEDS ORDERED: Potassium Replacement Protocol 1 EACH MISC MISCELLANE PRN (03:20)
[2023-05-26] MEDS ORDERED: Magnesium Replacement Protocol 1 EACH MISC MISCELLANE PRN (03:21)
[2023-05-26] MEDS: POTASSIUM BICARBONATE/CIT AC 20 MEQ TABLET.EFF NG-TUBE SCH (04:32)
[2023-05-26] MEDS: MAGNESIUM SULFATE-D5W PMX 1 GM in DEXTROSE/WATER 1 100ML.BAG IVPB SCH (04:33)
[2023-05-26 06:21] LABS: Appearance,Urine Clear (Clear); Bilirubin,Urine Negative (Negative); Blood,Urine Moderate (Negative); Color,Urine Colorless; Glucose,Urine (UA) Negative (Negative); Ketones,Urine Negative (Negative); Leukocyte Esterase,Urine Moderate (Negative); Mucus,Urine Rare /hpf; Nitrite,Urine Negative (Negative); Protein,Urine Negative (Negative); RBC,Urine >182 /hpf (0-5); Specific Gravity,Urine 1.009 (1.001-1.035); Squamous Epithelial Cell,Urine <1 /hpf (0-4); Urobilinogen,Urine <2.0 mg/dL (<2.0); WBC,Urine 19 /hpf (0-5)
[2023-05-26 06:25] LABS: ABG Base Excess 2.9 mmol/L; ABG HCO3 27 mmol/L (21-25); ABG Oxygen Saturation 98.9 % (94-97); ABG PCO2 36 mmHg (35-45); ABG PH 7.47 (7.35-7.45); ABG PO2 157 mmHg (83-108); ABG TCO2 28 mmol/L (19-24); Allen Test Performed? Yes
[2023-05-26 06:36] LABS: Glucose,Whole Blood 83 mg/dL (70-110)
--- NOTE | 2023-05-26 08:20 | XR ---
EXAMINATION TYPE: XR chest 1V portable DATE OF EXAM: 05/26/2023 COMPARISON: 05/26/2023 HISTORY: Tube placement TECHNIQUE: Single frontal view of the chest is obtained. FINDINGS: ET and NG tubes stable. Stable left lower lobe infiltrate and tiny effusion. Right lung cl ear. No pneumothorax. Degenerative change of the spine. Surgical clips in the upper abdomen. IMPRESSION: Stable left lower lobe infiltrate.
--- NOTE | 2023-05-26 08:33 | P.HPIM ---
History of Present Illness This is a pleasant 47 years old female with history of seizure and multiple medical problems as below, including GERD migraine, tachycardia she has history of gastric sleeve surgery and bariatric surgery cholecystectomy. She has hi story of anxiety and depression Looks like patient came yesterday with 3-4 episodes of seizure before coming to the hospital by EMS. It was reported she has a history of seizure on Depakote and Vimpat Patient was admitted initially to the general medical floor, however patient had recurrent/prolonged seizure up to 6 minutes, a team was called and patient was intubated and sent to the intensive care unit. Currently patient seen in room 263. She is getting the propofol but no Precedex She had low-grade temperature today 99.7 but rest of vitals look stable Labs reviewed and they are unremarkable CBC, BMP, LFT, INR, troponin, lipase. Hemoglobin at baseline 9.7 Magnesium low 1.5 Urinalysis is suspicious for moderate leukocyte esterase and WBC 19 but RBC more than 182 Blood and protein acid level was subtherapeutic at 29.6, with the reference therapeutic ranges 50-120 Chest x-ray is negative for acute process CT brain: No acute abnormality EKG showing sinus rhythm at [address]-T changes Review of Systems ROS unobtainable: due to endotracheal tube, due to mental status Past Medical History Past Medical History: GERD/Reflux, Seizure Disorder Additional Past Medical History / Comment(s): Hx of migraines, elevated HR, one seizure/unknown cause 2016; "Severe reflux, awakening in noc w/ choking since gastric sleeve surgery." History of Any Multi-Drug Resistant Organisms: MRSA Date of last positivie culture/infection: 08/30/20 MDRO Source:: Right Thigh Past Surgical History: Bariatric Surgery, Cholecystectomy, Orthopedic Surgery Additional Past Surgical History / Comment(s): lap band 2009, gastic sleeve 04/03; EGD; IVF; metatarsus abduction/age 6; Past Anesthesia/Blood Transfusion Reactions: No Reported Reaction, Motion Sickness, Postoperative Nausea & Vomiting (PONV) Additional Past Anesthesia/Blood Transfusion Reaction / Comment(s): no hx of blood transfusion Past Psychological History: Anxiety, Depression Smoking Status: Never smoker Past Alcohol Use History: None Reported Past Drug Use History: None Reported - Past Family History Mother Family Medical History: Cancer, Hypertension Additional Family Medical History / Comment(s): Breast CA Brother(s) Family Medical History: No Reported History Father History Unknown: Yes Additional Family Medical History / Comment(s): father of suicide . Medications and Allergies Home Medications Medication Instructions Recorded Confirmed Type Acetaminophen Tab [Tylenol] 500 mg PO Q8H PRN 01/17/23 05/25/23 History Aspirin EC [Ecotrin Low Dose] 81 mg PO DAILY 05/25/23 05/25/23 History Atorvastatin Calcium [Lipitor] 40 mg PO HS 05/25/23 05/25/23 History Divalproex Sodium 750 mg PO BID@0800,199905/25/23 05/25/23 History HYDROcodone/APAP 7.5-325MG [[place] 1 tab PO TID PRN 05/25/23 05/25/23 History 7.5-325] Lacosamide [Vimpat] 150 mg PO TID 05/25/23 05/25/23 History Ondansetron [Zofran] 4 mg PO TID PRN 05/25/23 05/25/23 History hydrOXYzine HCL [Atarax] 25 mg PO DAILY PRN 05/25/23 05/25/23 History Allergies Allergy/AdvReac Type Severity Reaction Status Date / Time aspirin AdvReac see comment Verified 05/25/23 20:26 ibuprofen [From Motrin] AdvReac see comment Verified 05/25/23 20:26 levetiracetam [From Keppra] AdvReac Seizures Verified 05/25/23 20:26 Physical Exam Vitals: Vital Signs Temp Pulse Pulse Resp BP BP Pulse Ox 05/26/23 06:00 84 18 135/89 100 05/26/23 05:30 98 18 132/88 100 05/26/23 05:00 85 18 144/92 100 05/26/23 04:30 86 18 121/75 05/26/23 04:00 99.7 F H 84 18 121/75 05/26/23 03:59 05/26/23 03:30 82 18 152/99 100 05/26/23 03:00 82 18 146/101 100 05/26/23 02:30 121/75 05/26/23 02:00 95 18 151/97 100 05/26/23 01:41 05/26/23 01:30 98.6 F 98 13 155/99 100 05/26/23 01:15 98.6 F 100 18 145/95 05/26/23 01:11 05/26/23 01:00 121/75 05/26/23 00:53 96 8 L 140/74 98 05/26/23 00:48 92 135/76 05/26/23 00:41 97.6 F 80 8 L 118/74 100 05/26/23 00:30 95 05/26/23 00:15 96 8 L 05/26/23 00:12 98.7 F 75 8 L 127/81 95 05/26/23 00:00 70 16 126/77 100 05/25/23 23:38 71 18 128/74 100 05/25/23 23:30 70 17 121/78 100 05/25/23 23:16 70 18 121/78 05/25/23 23:00 71 15 124/86 100 05/25/23 22:30 86 17 138/80 100 05/25/23 22:00 72 16 125/85 100 05/25/23 21:54 71 18 125/85 100 05/25/23 21:30 72 16 124/76 100 05/25/23 21:00 81 13 124/76 100 05/25/23 20:30 85 13 117/99 100 05/25/23 20:00 89 31 H 121/79 99 05/25/23 19:30 84 18 115/74 100 05/25/23 19:02 78 18 129/81 100 05/25/23 19:00 79 17 121/73 100 05/25/23 18:30 87 18 132/86 100 05/25/23 18:00 96 21 130/81 96 05/25/23 17:50 85 18 130/81 99 05/25/23 17:46 92 18 130/81 78 L 05/25/23 17:43 102 H 19 FiO2 05/26/23 06:00 05/26/23 05:30 05/26/23 05:00 05/26/23 04:30 05/26/23 04:00 40 05/26/23 03:59 40 05/26/23 03:30 05/26/23 03:00 05/26/23 02:30 05/26/23 02:00 05/26/23 01:41 40 05/26/23 01:30 40 05/26/23 01:15 40 05/26/23 01:11 100 05/26/23 01:00 05/26/23 00:53 05/26/23 00:48 05/26/23 00:41 05/26/23 00:30 05/26/23 00:15 05/26/23 00:12 05/26/23 00:00 05/25/23 23:38 05/25/23 23:30 05/25/23 23:16 05/25/23 23:00 05/25/23 22:30 05/25/23 22:00 05/25/23 21:54 05/25/23 21:30 05/25/23 21:00 05/25/23 20:30 05/25/23 20:00 05/25/23 19:30 05/25/23 19:02 05/25/23 19:00 05/25/23 18:30 05/25/23 18:00 05/25/23 17:50 05/25/23 17:46 05/25/23 17:43 Intake and Output 05/25/23 05/25/23 05/26/23 14:59 22:59 06:59 Intake Total 367.654 Output Total 585 Balance -217.346 Intake: IV 300 Sodium Chloride 0.9% 1, 300 000 ml @ 75 mls/hr IV . [id number] ONE Rx#:[id number] Intake, IV Titration 67.654 Amount propofoL 1,000 mg In 67.654 Empty Bag 1 bag @ 15 MCG/ KG/MIN 7.757 mls/hr IV . [id number] [facility] Rx#:[id number] Output: Urine 585 Other: Voiding Method Indwelling Catheter Weight 86.183 kg 86.183 kg -GENERAL: The patient is intubated and sedated HEENT: Pupils are round and equally reacting to light. EOMI. No scleral icterus. No conjunctival pallor. Normocephalic, atraumatic. No pharyngeal erythema. No thyromegaly. CARDIOVASCULAR: S1 and S2 present. No murmurs, rubs, or gallops. PULMONARY: Chest is clear to auscultation, no wheezing , no crackles. ABDOMEN: Soft, nontender, nondistended, normoactive bowel sounds. No palpable organomegaly. MUSCULOSKELETAL: No joint swelling or deformity. EXTREMITIES: No cyanosis, clubbing, or pedal edema. NEUROLOGICAL: Gross neurological examination did not reveal any focal deficits. SKIN: No rashes. no petechiae. Results CBC & Chem 7: 05/26/23 02:03 05/26/23 02:03 Labs: Abnormal Lab Results - Last 24 Hours (Table) 05/25/23 05/25/23 05/25/23 Range/Units 17:57 17:57 20:06 RBC 3.52 L (3.80-5.40) m/uL Hgb 10.1 L (11.4-16.0) gm/dL Hct 33.1 L (34.0-46.0) % MCHC 30.4 L (31.0-37.0) g/dL ABG pH (7.35-7.45) ABG pO2 (83-108) mmHg ABG HCO3 (21-25) mmol/L ABG Total CO2 (19-24) mmol/L ABG O2 Saturation (94-97) % Sodium (137-145) mmol/L Chloride 109 H (98-107) mmol/L Carbon Dioxide (22-30) mmol/L Calcium (8.4-10.2) mg/dL Magnesium (1.6-2.3) mg/dL Total Bilirubin (0.2-1.3) mg/dL Total Protein 6.0 L (6.3-8.2) g/dL Albumin 3.4 L (3.5-5.0) g/dL Urine Blood (Negative) Ur Leukocyte Esterase (Negative) Urine RBC (0-5) /hpf Urine WBC (0-5) /hpf Urine Mucus (None) /hpf Urine Opiates Screen Detected H (NotDetected) 05/26/23 05/26/23 05/26/23 Range/Units 01:29 01:50 02:03 RBC 3.33 L (3.80-5.40) m/uL Hgb 9.7 L (11.4-16.0) gm/dL Hct 32.1 L (34.0-46.0) % MCHC 30.1 L (31.0-37.0) g/dL ABG pH 7.47 H (7.35-7.45) ABG pO2 397 H 157 H (83-108) mmHg ABG HCO3 27 H (21-25) mmol/L ABG Total CO2 26 H 28 H (19-24) mmol/L ABG O2 Saturation 99.4 H 98.9 H (94-97) % Sodium (137-145) mmol/L Chloride (98-107) mmol/L Carbon Dioxide (22-30) mmol/L Calcium (8.4-10.2) mg/dL Magnesium (1.6-2.3) mg/dL Total Bilirubin (0.2-1.3) mg/dL Total Protein (6.3-8.2) g/dL Albumin (3.5-5.0) g/dL Urine Blood (Negative) Ur Leukocyte Esterase (Negative) Urine RBC (0-5) /hpf Urine WBC (0-5) /hpf Urine Mucus (None) /hpf Urine Opiates Screen (NotDetected) 05/26/23 05/26/23 Range/Units 02:03 06:10 RBC (3.80-5.40) m/uL Hgb (11.4-16.0) gm/dL Hct (34.0-46.0) % MCHC (31.0-37.0) g/dL ABG pH (7.35-7.45) ABG pO2 (83-108) mmHg ABG HCO3 (21-25) mmol/L ABG Total CO2 (19-24) mmol/L ABG O2 Saturation (94-97) % Sodium 134 L (137-145) mmol/L Chloride 108 H (98-107) mmol/L Carbon Dioxide 19 L (22-30) mmol/L Calcium 7.0 L (8.4-10.2) mg/dL Magnesium 1.5 L (1.6-2.3) mg/dL Total Bilirubin 0.1 L (0.2-1.3) mg/dL Total Protein 5.2 L (6.3-8.2) g/dL Albumin 2.7 L (3.5-5.0) g/dL Urine Blood Moderate H (Negative) Ur Leukocyte Esterase Moderate H (Negative) Urine RBC >182 H (0-5) /hpf Urine WBC 19 H (0-5) /hpf Urine Mucus Rare H (None) /hpf Urine Opiates Screen (NotDetected) Thrombosis Risk Factor Assmnt - Choose All That Apply Any of the Below Risk Factors Present?: Yes Each Factor Represents 1 point: Age 41-60 years, Obesity (BMI >25) Other Risk Factors: No Other congenital or acquired thrombophilia - If yes, enter type in comment: No Thrombosis Risk Factor Assessment Total Risk Factor Score: 2 Thrombosis Risk Factor Assessment Level: Low Risk Assessment and Plan Assessment: Breakthrough seizure with status epilepticus in view of her history of seizure Acute hypoxic respiratory failure secondary to above "airway s/p intubation History of GERD, s/p gastric sleeve surgery History of anxiety and depression Plan: Continue with seizure medication, patient is s/p Vimpat 200 mg x 1 and Dilantin 1000 mg x 1 by neurology service. Patient currently kept on Vimpat 150 mg 3 times daily. EEG pending neurology service. Repeat urine analysis and urine culture Ativan as needed Labs and medication were reviewed.. Continue same treatment. Continue with symptomatic treatment. Resume home medication. Monitor labs and vitals. DVT and GI prophylaxis. Further recommendations as per clinical course of the patient DVT prophylaxis: Subcutaneous heparin GI Prophylaxis: Pepcid Prognosis is guarded
[2023-05-26] MEDS: HEPARIN SODIUM,PORCINE 5,000 UNIT/ML 1 ML VIAL SQ SCH (09:57)
[2023-05-26] MEDS: CHLORHEXIDINE GLUCONATE 15 ML CUP MUCOUS MEM SCH (09:57)
[2023-05-26] MEDS: FAMOTIDINE 20 MG/2 ML VIAL IV SCH (09:57)
[2023-05-26] MEDS: SODIUM CHLORIDE 0.9% 1,000 ML IV SCH (10:08)
[2023-05-26] MEDS: VALPROATE SODIUM 750 MG in SODIUM CHLORIDE 0.9% 50 ML IVPB SCH (11:41)
[2023-05-26 12:01] LABS: Glucose,Whole Blood 77 mg/dL (70-110)
--- NOTE | 2023-05-26 12:49 | P.CNPUL ---
History of Present Illness Consult date: 05/26/23 Chief complaint: seizure History of present illness: Patient is a 47-year-old white female with past medical history significant for seizure disorder, chronic back pain, anxiety and depression, GERD with esophagitis, MRSA skin infections, among other things. Of note, patient had a recent hospital admission back in April, for breakthrough seizures. Her neurologist is local, Dr. Galeano. Patient's is at bedside, and also states that she had a recent evaluation for possible "small stroke" at [facility] 2 to 3 weeks ago. He denies recreational drug use or alcohol use. She does take [place] for chronic back pain. Patient is on Vimpat and Depakote at home, and patient states that she has not missed any doses. EMS was called yesterday evening for breakthrough seizure. In route, the patient received a total of 10 mg of IM Versed. At some point, the patient stopped seizing. Brain CT on arrival did not show any acute intracranial abnormality. She was admitted originally to the cardiac stepdown unit. Early this morning, the patient had a sustained seizure. I was told that this was a generalized tonic-clonic seizure involving all 4 extremities. No bowel or bladder incontinence. No tongue biting. No vomiting. A rapid response was called, and the patient did receive a total of 2 mg of IV Ativan, seizure was sustained for greater than 5 minutes. Neurology was contacted and recommended transfer to the intensive care unit and intubation for airway protection. PRESCHOOL AIDE performed rapid sequence intubation during the A-team. The patient was moved to the intensive care unit, in room 263. On my evaluation, the patient is intubated to the mechanical ventilator. She is sedated on propofol which is currently infusing at 50 mcg/kg/min. No further seizure activity at this time. Postintubation chest x-ray shows the endotracheal tube in good location. The nasogastric tube called back to the GE junction, and could be withdrawn 5 to 10 cm. Otherwise, no acute cardiopulmonary process. Initial ventilator settings include assist-control, respiratory rate 18, tidal volume 400, FiO2 100%, and PEEP of 5. Follow-up ABG as a PaO2 of 397, pCO2 of 37, pH of 7.44. FiO2 was weaned down to 40%, and will be weaned down further as tolerated. Initial CBC has some normocytic normochromic anemia, hemoglobin appears stable from baseline. CMP unremarkable. CBG 75 mg/dL. Urine drug screen positive for opiates, otherwise negative. Depakote level 59. Patient will remain intubated, at least overnight. Antiepileptic medications were being adjusted per neurology. At this point in time, the patient is intubated on the mechanical ventilator. No seizure activity has been noted. EEG is in progress. The patient was started on Vimpat. Depakote level has been dropping and is subtherapeutic at this point in time. The patient is was sedated on propofol which is running at 50 mcg/kg/min. The patient is on normal saline at rate of 75 cc an hour. No other significant events overnight. Awaiting neurology consultation. Past Medical History Past Medical History: GERD/Reflux, Seizure Disorder Additional Past Medical History / Comment(s): Hx of migraines, elevated HR, one seizure/unknown cause 2016; "Severe reflux, awakening in noc w/ choking since gastric sleeve surgery." History of Any Multi-Drug Resistant Organisms: MRSA Date of last positivie culture/infection: 08/30/20 MDRO Source:: Right Thigh Past Surgical History: Bariatric Surgery, Cholecystectomy, Orthopedic Surgery Additional Past Surgical History / Comment(s): lap band 2009, gastic sleeve 04/03; EGD; IVF; metatarsus abduction/age 6; Past Anesthesia/Blood Transfusion Reactions: No Reported Reaction, Motion Sickness, Postoperative Nausea & Vomiting (PONV) Additional Past Anesthesia/Blood Transfusion Reaction / Comment(s): no hx of blood transfusion Past Psychological History: Anxiety, Depression Smoking Status: Never smoker Past Alcohol Use History: None Reported Past Drug Use History: None Reported - Past Family History Mother Family Medical History: Cancer, Hypertension Additional Family Medical History / Comment(s): Breast CA Brother(s) Family Medical History: No Reported History Father History Unknown: Yes Additional Family Medical History / Comment(s): father of suicide . Medications and Allergies Home Medications Medication Instructions Recorded Confirmed Type Acetaminophen Tab [Tylenol] 500 mg PO Q8H PRN 01/17/23 05/25/23 History Aspirin EC [Ecotrin Low Dose] 81 mg PO DAILY 05/25/23 05/25/23 History Atorvastatin Calcium [Lipitor] 40 mg PO HS 05/25/23 05/25/23 History Divalproex Sodium 750 mg PO BID@0800,199905/25/23 05/25/23 History HYDROcodone/APAP 7.5-325MG [[place] 1 tab PO TID PRN 05/25/23 05/25/23 History 7.5-325] Lacosamide [Vimpat] 150 mg PO TID 05/25/23 05/25/23 History Ondansetron [Zofran] 4 mg PO TID PRN 05/25/23 05/25/23 History hydrOXYzine HCL [Atarax] 25 mg PO DAILY PRN 05/25/23 05/25/23 History Allergies Allergy/AdvReac Type Severity Reaction Status Date / Time aspirin AdvReac see comment Verified 05/25/23 20:26 ibuprofen [From Motrin] AdvReac see comment Verified 05/25/23 20:26 levetiracetam [From Keppra] AdvReac Seizures Verified 05/25/23 20:26 Physical Exam Vitals: Vital Signs Temp Pulse Pulse Resp BP BP Pulse Ox 05/26/23 08:26 05/26/23 07:00 102 H 18 146/103 100 05/26/23 06:30 87 18 137/90 100 05/26/23 06:00 84 18 135/89 100 05/26/23 05:30 98 18 132/88 100 05/26/23 05:00 85 18 144/92 100 05/26/23 04:30 86 18 121/75 05/26/23 04:00 99.7 F H 84 18 121/75 05/26/23 03:59 05/26/23 03:30 82 18 152/99 100 05/26/23 03:00 82 18 146/101 100 05/26/23 02:30 121/75 05/26/23 02:00 95 18 151/97 100 05/26/23 01:41 05/26/23 01:30 98.6 F 98 13 155/99 100 05/26/23 01:15 98.6 F 100 18 145/95 05/26/23 01:11 05/26/23 01:00 121/75 05/26/23 00:53 96 8 L 140/74 98 05/26/23 00:48 92 135/76 05/26/23 00:41 97.6 F 80 8 L 118/74 100 05/26/23 00:30 95 05/26/23 00:15 96 8 L 05/26/23 00:12 98.7 F 75 8 L 127/81 95 05/26/23 00:00 70 16 126/77 100 05/25/23 23:38 71 18 128/74 100 05/25/23 23:30 70 17 121/78 100 05/25/23 23:16 70 18 121/78 05/25/23 23:00 71 15 124/86 100 05/25/23 22:30 86 17 138/80 100 05/25/23 22:00 72 16 125/85 100 05/25/23 21:54 71 18 125/85 100 05/25/23 21:30 72 16 124/76 100 05/25/23 21:00 81 13 124/76 100 05/25/23 20:30 85 13 117/99 100 05/25/23 20:00 89 31 H 121/79 99 05/25/23 19:30 84 18 115/74 100 05/25/23 19:02 78 18 129/81 100 05/25/23 19:00 79 17 121/73 100 05/25/23 18:30 87 18 132/86 100 05/25/23 18:00 96 21 130/81 96 05/25/23 17:50 85 18 130/81 99 05/25/23 17:46 92 18 130/81 78 L 05/25/23 17:43 102 H 19 FiO2 05/26/23 08:26 40 05/26/23 07:00 05/26/23 06:30 05/26/23 06:00 05/26/23 05:30 05/26/23 05:00 05/26/23 04:30 05/26/23 04:00 40 05/26/23 03:59 40 05/26/23 03:30 05/26/23 03:00 05/26/23 02:30 05/26/23 02:00 05/26/23 01:41 40 05/26/23 01:30 40 05/26/23 01:15 40 05/26/23 01:11 100 05/26/23 01:00 05/26/23 00:53 05/26/23 00:48 05/26/23 00:41 05/26/23 00:30 05/26/23 00:15 05/26/23 00:12 05/26/23 00:00 05/25/23 23:38 05/25/23 23:30 05/25/23 23:16 05/25/23 23:00 05/25/23 22:30 05/25/23 22:00 05/25/23 21:54 05/25/23 21:30 05/25/23 21:00 05/25/23 20:30 05/25/23 20:00 05/25/23 19:30 05/25/23 19:02 05/25/23 19:00 05/25/23 18:30 05/25/23 18:00 05/25/23 17:50 05/25/23 17:46 05/25/23 17:43 Intake and Output 05/25/23 05/26/23 05/26/23 22:59 06:59 14:59 Intake Total 424.750 117.904 Output Total 585 100 Balance -160.250 17.904 Intake: IV 300 75 Sodium Chloride 0.9% 1, 300 75 000 ml @ 75 mls/hr IV . [id number] [facility] Rx#:[id number] Intake, IV Titration 124.750 42.904 Amount propofoL 1,000 mg In 124.750 42.904 Empty Bag 1 bag @ 15 MCG/ KG/MIN 7.757 mls/hr IV . [id number] [facility] Rx#:[id number] Output: Urine 585 100 Other: Voiding Method Indwelling Catheter Weight 86.183 kg 86.183 kg GENERAL EXAM: Sedated 47-year-old female, intubated to mechanical ventilator, synchronous, currently sedated on propofol. No active seizures have been witnessed on examination. No tonic-clonic activity. No tonic postures. HEAD: Normocephalic and atraumatic EYES: Normal reaction of pupils, equal size. NOSE: Clear with pink turbinates. THROAT: No erythema or exudates. NECK: No masses, no JVD. CHEST: No chest wall deformity. LUNGS: Equal air entry with no crackles, wheeze, rhonchi or dullness. Intubated and synchronous with mechanical ventilator. No substantial endotracheal secretions. CVS: S1 and S2 normal with no audible murmur, regular rhythm. No extra heart sounds ABDOMEN: No hepatosplenomegaly, active bowel sounds, no guarding or rigidity. SPINE: No scoliosis or deformity SKIN: No rashes. Left knee ecchymosis. CENTRAL NERVOUS SYSTEM: Neurologic exam limited by sedation. Does not currently follow any commands. Pupils are midline, round, equal, and reactive to light. No obvious facial asymmetry. Extremities bilaterally and throughout our flaccid. Does not withdrawal to painful stimuli. DTRs are depressed bilaterally. No posturing. Babinski neutral. EXTREMITIES: There is no peripheral edema, clubbing, or cyanosis. Peripheral pulses are intact. Results - Laboratory Findings CBC and BMP: 05/26/23 02:03 05/26/23 10:02 ABG ABG pH 7.47 (7.35-7.45) H 05/26/23 01:50 ABG pCO2 36 mmHg (35-45) 05/26/23 01:50 ABG pO2 157 mmHg (83-108) H 05/26/23 01:50 ABG O2 Saturation 98.9 % (94-97) H 05/26/23 01:50 Abnormal lab findings: Abnormal Labs 05/25/23 05/25/23 05/25/23 17:57 17:57 20:06 RBC 3.52 L Hgb 10.1 L Hct 33.1 L MCHC 30.4 L ABG pH ABG pO2 ABG HCO3 ABG Total CO2 ABG O2 Saturation Sodium Chloride 109 H Carbon Dioxide Calcium Magnesium Total Bilirubin Total Protein 6.0 L Albumin 3.4 L Urine Blood Ur Leukocyte Esterase Urine RBC Urine WBC Urine Mucus Urine Opiates Screen Detected H 05/26/23 05/26/23 05/26/23 01:29 01:50 02:03 RBC 3.33 L Hgb 9.7 L Hct 32.1 L MCHC 30.1 L ABG pH 7.47 H ABG pO2 397 H 157 H ABG HCO3 27 H ABG Total CO2 26 H 28 H ABG O2 Saturation 99.4 H 98.9 H Sodium Chloride Carbon Dioxide Calcium Magnesium Total Bilirubin Total Protein Albumin Urine Blood Ur Leukocyte Esterase Urine RBC Urine WBC Urine Mucus Urine Opiates Screen 05/26/23 05/26/23 02:03 06:10 RBC Hgb Hct MCHC ABG pH ABG pO2 ABG HCO3 ABG Total CO2 ABG O2 Saturation Sodium 134 L Chloride 108 H Carbon Dioxide 19 L Calcium 7.0 L Magnesium 1.5 L Total Bilirubin 0.1 L Total Protein 5.2 L Albumin 2.7 L Urine Blood Moderate H Ur Leukocyte Esterase Moderate H Urine RBC >182 H Urine WBC 19 H Urine Mucus Rare H Urine Opiates Screen - Diagnostic Findings Chest x-ray: image reviewed Assessment and Plan Plan: Status epilepticus, patient reportedly had a generalized tonic-clonic seizure, refractory to benzodiazepine administration, lasting greater than 5 minutes. Patient was intubated for airway protection. The patient is currently free of any seizure activity. The patient is sedated on propofol. Awaiting EEG. CAT scan of the brain has been negative. The patient is clinically stable and hemodynamically stable. Awaiting neurology consultation. Depakote level has been downtrending and is currently subtherapeutic. Mechanical ventilator management, patient was intubated for airway protection, currently on a assist-control mode of mechanical ventilation. Chest x-ray was noted and free of any acute pulm infiltrates. Blood gas was also noted. History of breakthrough seizures History of seizure disorder History of GERD with esophagitis History of sleeve gastrectomy Chronic anemia, hemoglobin stable History of MRSA cellulitis History of anxiety/depression Chronic back pain Hyperlipidemia Possible histo History of nephrolithiasis History of a urine tract infection with sepsis back in 2022 History of 5.5 cm right ovarian cystry of TIA, as reported by spouse, will obtain records from [facility] Plan: Continue ventilator support for now. No change in the mechanical ventilator settings No evidence of any aspiration pneumonia Continue propofol for sedation, wean for appropriate RASS of 0-1 Monitor for further seizure activity Antiepileptic medications were adjusted by neurologist EEG to be done today Continue Vimpat and consider restarting valproic acid and this will be discussed with neurology CT of the brain without contrast reviewed Likely extubation if no seizure activity and EEG shows no significant epileptic foci. Will consider extubation probably stable over the next 24 hours. Will continue to follow. She is on DVT prophylaxis. Time with Patient: Greater than 30
--- NOTE | 2023-05-26 13:28 | P.CNNES ---
History of Present Illness Consult date: 05/26/23 Requesting physician: Aakash Neil Reason for Consult: seizure History of Present Illness: this is a 47-year-old woman with history of seizures, depression and anxiety who presented emergency department because of multiple seizures. History was obtained from the patient's was at bedside as well as the nurse. Patient is known to our neurology service because of other hospital visits. according to the was at bedside he stated that the patient had multiple seizures around 4-5 yesterday that started around 5:40 PM. She was shaken throughout all extremities eyes open and deviated upwards and the episode lasted around 5 minutes. she was given10 mg of IV Versed. Which seems it controlled her seizures. according to the she follows up with her neurologist Dr. Galeano and he modified her seizure medication and he increased her Depakote from 500 twice a day to 750mg twice a day. he also modified her Vimpat from 100 mg 4 times a day 250 mg 3 times a day and dose changes were made about 2 weeks ago and she's been compliant taking her medication. She does have underlying anxiety and depression but nothing out of the ordinary. She has an appointment with epilepsy team end of this month over [facility]. Then she had further seizures around midnight and past midnight lasting 10 minutes shaking all extremities. I was called yesterday at nighttime and I notified them to give her Vimpat 200 mg once as well as phenytoin 1 g.ad I notified the team if she continues to have seizures to intubate her and send her to the ICU and sedated her which they did. It seemed to the patient received2 mg Ativan and was told by the nurse she was heart rate was 8 prior to intubation and that is why no further Ativan. As stated earlier the patient is known to our neurology team and she had multiple EEGs and EEGs are negative for any seizures. She had a clinical status epilepticus just over a month ago. I'm concerned if she had nonepileptic episodes in addition to epileptic episode s. Please refer to our prior notes for further details. Some of the work-up during this hospital visit consisted. wbc is normal. plasma lactic acid vein is 0.8 Glucose is 91 UDS is positive for opiates Valproic acid level is 58.9 (normal is 50-120) then repeated level 29.6 CT head is reported as no significant intracranial abnormality. I personally reviewed CT and agree with report. Review of Systems Limited but the positive and negative as per HPI. Past Medical History Past Medical History: GERD/Reflux, Seizure Disorder Additional Past Medical History / Comment(s): Hx of migraines, elevated HR, one seizure/unknown cause 2016; "Severe reflux, awakening in noc w/ choking since gastric sleeve surgery." History of Any Multi-Drug Resistant Organisms: MRSA Date of last positivie culture/infection: 08/30/20 MDRO Source:: Right Thigh Past Surgical History: Bariatric Surgery, Cholecystectomy, Orthopedic Surgery Additional Past Surgical History / Comment(s): lap band 2009, gastic sleeve 04/03; EGD; IVF; metatarsus abduction/age 6; Past Anesthesia/Blood Transfusion Reactions: No Reported Reaction, Motion Sickness, Postoperative Nausea & Vomiting (PONV) Additional Past Anesthesia/Blood Transfusion Reaction / Comment(s): no hx of blood transfusion Past Psychological History: Anxiety, Depression Smoking Status: Never smoker Past Alcohol Use History: None Reported Past Drug Use History: None Reported - Past Family History Mother Family Medical History: Cancer, Hypertension Additional Family Medical History / Comment(s): Breast CA Brother(s) Family Medical History: No Reported History Father History Unknown: Yes Additional Family Medical History / Comment(s): father of suicide . Medications and Allergies Home Medications Medication Instructions Recorded Confirmed Type Acetaminophen Tab [Tylenol] 500 mg PO Q8H PRN 01/17/23 05/25/23 History Aspirin EC [Ecotrin Low Dose] 81 mg PO DAILY 05/25/23 05/25/23 History Atorvastatin Calcium [Lipitor] 40 mg PO HS 05/25/23 05/25/23 History Divalproex Sodium 750 mg PO BID@0800,199905/25/23 05/25/23 History HYDROcodone/APAP 7.5-325MG [[place] 1 tab PO TID PRN 05/25/23 05/25/23 History 7.5-325] Lacosamide [Vimpat] 150 mg PO TID 05/25/23 05/25/23 History Ondansetron [Zofran] 4 mg PO TID PRN 05/25/23 05/25/23 History hydrOXYzine HCL [Atarax] 25 mg PO DAILY PRN 05/25/23 05/25/23 History Allergies Allergy/AdvReac Type Severity Reaction Status Date / Time aspirin AdvReac see comment Verified 05/25/23 20:26 ibuprofen [From Motrin] AdvReac see comment Verified 05/25/23 20:26 levetiracetam [From Keppra] AdvReac Seizures Verified 05/25/23 20:26 Physical Examination - Vital Signs Vital Signs: Vital Signs Temp Pulse Pulse Resp BP BP Pulse Ox 05/26/23 12:00 101.9 F H 103 H 21 143/95 100 05/26/23 11:37 05/26/23 11:30 103 H 21 129/88 100 05/26/23 11:00 95 24 139/94 100 05/26/23 10:30 97 21 132/87 100 05/26/23 10:00 96 20 139/91 100 05/26/23 09:30 97 20 141/95 100 05/26/23 09:00 103 H 22 136/96 100 05/26/23 08:30 104 H 20 137/88 100 05/26/23 08:26 05/26/23 08:00 101.2 F H 92 20 146/94 100 05/26/23 07:30 90 18 144/97 100 05/26/23 07:00 102 H 18 146/103 100 05/26/23 06:30 87 18 137/90 100 05/26/23 06:00 84 18 135/89 100 05/26/23 05:30 98 18 132/88 100 05/26/23 05:00 85 18 144/92 100 05/26/23 04:30 86 18 121/75 05/26/23 04:00 99.7 F H 84 18 121/75 05/26/23 03:59 05/26/23 03:30 82 18 152/99 100 05/26/23 03:00 82 18 146/101 100 05/26/23 02:30 121/75 05/26/23 02:00 95 18 151/97 100 05/26/23 01:41 05/26/23 01:30 98.6 F 98 13 155/99 100 05/26/23 01:15 98.6 F 100 18 145/95 05/26/23 01:11 05/26/23 01:00 121/75 05/26/23 00:53 96 8 L 140/74 98 05/26/23 00:48 92 135/76 05/26/23 00:41 97.6 F 80 8 L 118/74 100 05/26/23 00:30 95 05/26/23 00:15 96 8 L 05/26/23 00:12 98.7 F 75 8 L 127/81 95 05/26/23 00:00 70 16 126/77 100 05/25/23 23:38 71 18 128/74 100 05/25/23 23:30 70 17 121/78 100 05/25/23 23:16 70 18 121/78 05/25/23 23:00 71 15 124/86 100 05/25/23 22:30 86 17 138/80 100 05/25/23 22:00 72 16 125/85 100 05/25/23 21:54 71 18 125/85 100 05/25/23 21:30 72 16 124/76 100 05/25/23 21:00 81 13 124/76 100 05/25/23 20:30 85 13 117/99 100 05/25/23 20:00 89 31 H 121/79 99 05/25/23 19:30 84 18 115/74 100 05/25/23 19:02 78 18 129/81 100 05/25/23 19:00 79 17 121/73 100 05/25/23 18:30 87 18 132/86 100 05/25/23 18:00 96 21 130/81 96 05/25/23 17:50 85 18 130/81 99 05/25/23 17:46 92 18 130/81 78 L 05/25/23 17:43 102 H 19 FiO2 05/26/23 12:00 30 05/26/23 11:37 30 05/26/23 11:30 05/26/23 11:00 05/26/23 10:30 05/26/23 10:00 05/26/23 09:30 05/26/23 09:00 05/26/23 08:30 05/26/23 08:26 40 05/26/23 08:00 30 05/26/23 07:30 05/26/23 07:00 05/26/23 06:30 05/26/23 06:00 05/26/23 05:30 05/26/23 05:00 05/26/23 04:30 05/26/23 04:00 40 05/26/23 03:59 40 05/26/23 03:30 05/26/23 03:00 05/26/23 02:30 05/26/23 02:00 05/26/23 01:41 40 05/26/23 01:30 40 05/26/23 01:15 40 05/26/23 01:11 100 05/26/23 01:00 05/26/23 00:53 05/26/23 00:48 05/26/23 00:41 05/26/23 00:30 05/26/23 00:15 05/26/23 00:12 05/26/23 00:00 05/25/23 23:38 05/25/23 23:30 05/25/23 23:16 05/25/23 23:00 05/25/23 22:30 05/25/23 22:00 05/25/23 21:54 05/25/23 21:30 05/25/23 21:00 05/25/23 20:30 05/25/23 20:00 05/25/23 19:30 05/25/23 19:02 05/25/23 19:00 05/25/23 18:30 05/25/23 18:00 05/25/23 17:50 05/25/23 17:46 05/25/23 17:43 Intake and Output 05/25/23 05/26/23 05/26/23 22:59 06:59 14:59 Intake Total 424.750 117.904 Output Total 585 900 Balance -160.250 -782.096 Intake: IV 300 75 Sodium Chloride 0.9% 1, 300 75 000 ml @ 75 mls/hr IV . [id number] [facility] Rx#:[id number] Intake, IV Titration 124.750 42.904 Amount propofoL 1,000 mg In 124.750 42.904 Empty Bag 1 bag @ 15 MCG/ KG/MIN 7.757 mls/hr IV . [id number] [facility] Rx#:[id number] Output: Urine 585 900 Other: Voiding Method Indwelling Catheter Indwelling Catheter Weight 86.183 kg 86.183 kg General: Lying in bed and does not appear in in acute distress. Lung: Intubated on ventilator. Neuro: Limited. The patient is on IV Propofol 50mcg/kg/min. Slightly opens her yes. Pupils are midline and equal, abour 3-4mm and reactive to light. No facial weakness. Motor: Strength is limited. No jerking of extremities. No spontaneous movement. Tone is slightly decreased throughout. Plantars: Mute bilaterally. Results - Laboratory Findings CBC and BMP: 05/26/23 02:03 05/26/23 10:02 Abnormal Lab Findings: Abnormal Labs 05/25/23 05/25/23 05/25/23 17:57 17:57 20:06 RBC 3.52 L Hgb 10.1 L Hct 33.1 L MCHC 30.4 L ABG pH ABG pO2 ABG HCO3 ABG Total CO2 ABG O2 Saturation Sodium Chloride 109 H Carbon Dioxide Calcium Magnesium Total Bilirubin Total Protein 6.0 L Albumin 3.4 L Prolactin Urine Blood Ur Leukocyte Esterase Urine RBC Urine WBC Urine Mucus Urine Opiates Screen Detected H 05/26/23 05/26/23 05/26/23 01:29 01:50 02:03 RBC 3.33 L Hgb 9.7 L Hct 32.1 L MCHC 30.1 L ABG pH 7.47 H ABG pO2 397 H 157 H ABG HCO3 27 H ABG Total CO2 26 H 28 H ABG O2 Saturation 99.4 H 98.9 H Sodium Chloride Carbon Dioxide Calcium Magnesium Total Bilirubin Total Protein Albumin Prolactin Urine Blood Ur Leukocyte Esterase Urine RBC Urine WBC Urine Mucus Urine Opiates Screen 05/26/23 05/26/23 02:03 06:10 RBC Hgb Hct MCHC ABG pH ABG pO2 ABG HCO3 ABG Total CO2 ABG O2 Saturation Sodium 134 L Chloride 108 H Carbon Dioxide 19 L Calcium 7.0 L Magnesium 1.5 L Total Bilirubin 0.1 L Total Protein 5.2 L Albumin 2.7 L Prolactin 47.400 H Urine Blood Moderate H Ur Leukocyte Esterase Moderate H Urine RBC >182 H Urine WBC 19 H Urine Mucus Rare H Urine Opiates Screen Assessment and Plan Assessment: this is a 47-year-old woman with history of seizures who has multiple hospital visits for breakthrough seizure and about a month ago she had clinical status epilepticus. She had multiple EEGs in the past which were unremarkablefacility for seizure. She presents to our emergency department because of multiple seizure and was in status epilepticus. Clinical status epilepticus---resolved. Patient is intubated on ventilator and on sedation History of multiple seizures and had multiple EEG in our facility which were neg ative for seizure. Unsure if has epileptic vs nonepileptic vs combination of both. History of gastric bypass in 2018 History of cellulitis in the right thigh History of chronic depression and anxiety Plan: Patient is on home Depakote 750mg bid and Vimpat 150mg tid that was modified by her neurologist (Dr. Galeano) about two weeks ago. I will go up on Depakote to 1gm bid with one time 1250mg once of Depakote since on level was subtherapeutic but on initial draw during this admission was normal. EEG is ordered and pending to be read. Seizure precaution and pads. The patient has an appointment with an epilepsy team over [facility] end of this month for further evaluation. I highly recommend a prolonged EEG/Epilepsy monitoring unit for further evaluation of her seizure episodes if epileptic vs nonepileptic vs combination of both. She is following-up with psychiatrist as outpatient Will defer the rest of medical management to primary team and other specialist. The plan is discussed with and her ICU nurse. Thank you for the consultation. Time with Patient: Greater than 30
[2023-05-26] MEDS: VALPROATE SODIUM 500 MG in SODIUM CHLORIDE 0.9% 100 ML IVPB STA (13:49)
[2023-05-26] MEDS: VALPROATE SODIUM 1,000 MG in SODIUM CHLORIDE 0.9% 50 ML IVPB SCH (20:31)
--- NOTE | 2023-05-27 00:39 | EEG ---
ELECTROENCEPHALOGRAM REPORT CLINICAL HISTORY: This is a 47-year-old woman with history of seizures who presents to the emergency department because of multiple seizure-like activity. Since the patient had continued seizures, she was eventually intubated on a ventilator for clinical status epilepticus. The video EEG is obtained to evaluate for seizure epileptiform activity. RELEVANT MEDICATIONS: 1. Ativan. 2. Depakote. 3. Vimpat. 4. Versed. 5. IV propofol. EEG TYPE: A routine 21-channel EEG with video using the 10/20 electrode placement system. DESCRIPTION: The patient is intubated on a ventilator. The background consists of [id number] voltage of 1.5-2.5 hertz 1.5-2.5 hertz, polymorphic nonrhythmic delta activity. There is no physiological stage 2 sleep architecture. There is no focal slowing. There is diffuse excessive beta activity at during the study . Interictal and ictal is none. ACTIVATION PROCEDURE: Photic stimulation and hyperventilationis are not performed. CLINICAL INTERPRETATION: This is an abnormal routine EEG. The background slowing is suggestive of severe encephalopathy. The excessive beta activity is due to medication effect (Ativan). There is no focal slowing, epileptiform discharge, or seizure on the EEG. Clinical correlation is recommended. MMODL / IJN: [id number] / MTDElias
[2023-05-27 01:27] LABS: Glucose,Whole Blood 91 mg/dL (70-110)
[2023-05-27 05:25] LABS: African American GFR (CKD) >90 (>60 ml/min/1.73 sqM); Anion Gap 8 mmol/L; Blood Urea Nitrogen 12 mg/dL (7-17); Calcium 7.9 mg/dL (8.4-10.2); Carbon Dioxide 24 mmol/L (22-30); Chloride 107 mmol/L (98-107); Glucose 94 mg/dL (74-99); Magnesium 2.2 mg/dL (1.6-2.3); Non-African American GFR(CKD) >90 (>60 ml/min/1.73 sqM); Potassium 3.8 mmol/L (3.5-5.1); Sodium 139 mmol/L (137-145)
[2023-05-27 05:31] LABS: Basophils % (A) 0 %; Eosinophils % (A) 0 %; HCT 30.5 % (34.0-46.0); HGB 9.6 gm/dL (11.4-16.0); Hypochromasia Moderate; Lymphocytes # (A) 1.4 k/uL (1.0-4.8); Lymphocytes % (A) 16 %; MCH 29.4 pg (25.0-35.0); MCHC 31.5 g/dL (31.0-37.0); MCV 93.5 fL (80.0-100.0); Monocytes # (A) 1.2 k/uL (0-1.0); Monocytes % (A) 15 %; Neutrophils # (A) 5.5 k/uL (1.3-7.7); Neutrophils % (A) 66 %; Platelet Count 190 k/uL (150-450); RBC 3.27 m/uL (3.80-5.40); RDW 13.9 % (11.5-15.5); WBC 8.3 k/uL (3.8-10.6)
[2023-05-27 05:56] LABS: Glucose,Whole Blood 83 mg/dL (70-110)
[2023-05-27 06:24] LABS: ABG Base Excess 3.5 mmol/L; ABG HCO3 27 mmol/L (21-25); ABG PCO2 34 mmHg (35-45); ABG PO2 111 mmHg (83-108); ABG TCO2 28 mmol/L (19-24); Allen Test Performed? Yes
[2023-05-27 06:25] LABS: ABG Oxygen Saturation 98.6 % (94-97)
--- NOTE | 2023-05-27 08:02 | XR ---
EXAMINATION TYPE: XR chest 1V portable DATE OF EXAM: 05/27/2023 COMPARISON: 05/26/2023 HISTORY: Tube placement TECHNIQUE: Single frontal view of the chest is obtained. FINDINGS: ET and NG tubes stable. Stable left lower lobe infiltrate and tiny effusion. Right lung cl ear. No pneumothorax. Degenerative change of the spine. Surgical clips in the upper abdomen. IMPRESSION: Interval mild improvement in the area of left lower lobe infiltrate suspicious for pneum onia.
[2023-05-27] MEDS: POTASSIUM BICARBONATE/CIT AC 20 MEQ TABLET.EFF NG-TUBE SCH (08:25)
[2023-05-27 09:15] LABS: Appearance,Urine Clear (Clear); Bacteria,Urine Few /hpf; Bilirubin,Urine Negative (Negative); Blood,Urine Large (Negative); Color,Urine Colorless; Glucose,Urine (UA) Negative (Negative); Ketones,Urine Negative (Negative); Leukocyte Esterase,Urine Trace (Negative); Nitrite,Urine Positive (Negative); PH, Urine 5.5 (5.0-8.0); Protein,Urine Negative (Negative); RBC,Urine >182 /hpf (0-5); Specific Gravity,Urine 1.007 (1.001-1.035); Urobilinogen,Urine <2.0 mg/dL (<2.0); WBC,Urine 141 /hpf (0-5)
[2023-05-27 11:22] LABS: Glucose,Whole Blood 87 mg/dL (70-110)
--- NOTE | 2023-05-27 12:08 | P.PN ---
Subjective Progress Note Date: 05/27/23 I am following-up with patient and she is extubated today and is doing better. No further clinical seizures. Patient had few low grade fever hours after during this admission. Objective - Vital Signs Vital signs: Vital Signs Temp 100.2 F H 05/27/23 08:00 Pulse 89 05/27/23 11:00 Resp 12 05/27/23 11:00 BP 133/86 05/27/23 11:00 Pulse Ox 98 05/27/23 11:00 FiO2 30 05/27/23 09:30 Intake & Output 05/26/23 05/27/23 05/27/23 18:59 06:59 18:59 Intake Total 992.904 925 510.485 Output Total 1200 815 375 Balance -207.096 110 135.485 Weight 83.7 kg Intake: IV 750 825 395 Invasive Line 1 20 Sodium Chloride 0.9% 1, 750 825 375 000 ml @ 75 mls/hr IV . [id number] [facility] Rx#:[id number] Intake, IV Titration 242.904 100 115.485 Amount propofoL 1,000 mg In 242.904 100 115.485 Empty Bag 1 bag @ 15 MCG/ KG/MIN 7.757 mls/hr IV . [id number] [facility] Rx#:[id number] Output: Urine 1200 815 375 Other: Voiding Method Indwelling Catheter Indwelling Catheter Indwelling Catheter # Bowel Movements 0 - Exam General: Lying in bed and is not in acute distress. Neuro: Limited. The patient is extubated today. The patient is moderately drowsy but is awakeable to voice. Is following some simple commands. Language is limited. Pupils are round, equal and reactive to light. No facial weakness. Motor: The strength is limited because of cooperation. But is lifting bilateral arms slightly above gravity and wiggling toes. Some of the work-up during this hospital visit consisted. wbc is normal. plasma lactic acid vein is 0.8 Glucose is 91 UDS is positive for opiates Valproic acid level is 58.9 (normal is 50-120) then repeated level 29.6 Today repeat level is 93.8 CT head is reported as no significant intracranial abnormality. I personally reviewed CT and agree with report. Routine EEG: Is abnormal. The background slowing is suggestive of severe encephalopathy. There is no focal slowing, epileptiform discharge or seizure on the EEG. - Labs CBC & Chem 7: 05/27/23 04:46 05/27/23 04:46 Labs: Abnormal Lab Results - Last 24 Hours (Table) 05/27/23 05/27/23 05/27/23 Range/Units 04:46 04:46 06:22 RBC 3.27 L (3.80-5.40) m/uL Hgb 9.6 L (11.4-16.0) gm/dL Hct 30.5 L (34.0-46.0) % Monocytes # 1.2 H (0-1.0) k/uL ABG pH 7.50 H (7.35-7.45) ABG pCO2 34 L (35-45) mmHg ABG pO2 111 H (83-108) mmHg ABG HCO3 27 H (21-25) mmol/L ABG Total CO2 28 H (19-24) mmol/L ABG O2 Saturation 98.6 H (94-97) % Calcium 7.9 L (8.4-10.2) mg/dL Urine Blood (Negative) Urine Nitrite (Negative) Ur Leukocyte Esterase (Negative) Urine RBC (0-5) /hpf Urine WBC (0-5) /hpf Urine Bacteria (None) /hpf 05/27/23 Range/Units 08:50 RBC (3.80-5.40) m/uL Hgb (11.4-16.0) gm/dL Hct (34.0-46.0) % Monocytes # (0-1.0) k/uL ABG pH (7.35-7.45) ABG pCO2 (35-45) mmHg ABG pO2 (83-108) mmHg ABG HCO3 (21-25) mmol/L ABG Total CO2 (19-24) mmol/L ABG O2 Saturation (94-97) % Calcium (8.4-10.2) mg/dL Urine Blood Large H (Negative) Urine Nitrite Positive H (Negative) Ur Leukocyte Esterase Trace H (Negative) Urine RBC >182 H (0-5) /hpf Urine WBC 141 H (0-5) /hpf Urine Bacteria Few H (None) /hpf Microbiology - Last 24 Hours (Table) 05/26/23 01:50 Gram Stain - Preliminary Sputum Assessment and Plan Assessment: this is a 47-year-old woman with history of seizures who has multiple hospital visits for breakthrough seizure and about a month ago she had clinical status epilepticus. She had multiple EEGs in the past which were unremarkablefacility for seizure. She presents to our emergency department because of multiple seizure and was in status epilepticus. Clinical status epilepticus---resolved. Routine EEG is negative for seizure and discharge History of multiple seizures and had multiple EEG in our facility which were negative for seizure. Unsure if has epileptic vs nonepileptic vs combination of both. Pyrexia and unsure if patient had aspiration pneumonia History of gastric bypass in 2018 History of cellulitis in the right thigh History of chronic depression and anxiety Plan: Patient is on home Depakote 750mg bid and Vimpat 150mg tid that was modified by her neurologist (Dr. Galeano) about two weeks ago. I will go up on Depakote to 1gm bid. Seizure precaution and pads. The patient has an appointment with an epilepsy team over [facility] at end of this month for further evaluation. I highly recommend a prolonged EEG/Epilepsy monitoring unit for further evaluation of her seizure episodes if epileptic vs nonepileptic vs combination of both. She is following-up with psychiatrist as outpatient Will defer the rest of medical management to primary team and other specialist. Time with Patient: Less than 30
[2023-05-27] MEDS: HYDROcodone/APAP 7.5-325MG 1 EACH TAB PO PRN (13:01)
--- NOTE | 2023-05-27 13:55 | P.PN ---
Subjective Progress Note Date: 05/27/23 Patient is a 47-year-old white female with past medical history significant for seizure disorder, chronic back pain, anxiety and depression, GERD with esophagitis, MRSA skin infections, among other things. Of note, patient had a recent hospital admission back in April, for breakthrough seizures. Her neurologist is local, Dr. Galeano. Patient's is at bedside, and also states that she had a recent evaluation for possible "small stroke" at [facility] 2 to 3 weeks ago. He denies recreational drug use or alcohol use. She does take Wilton's for chronic back pain. Patient is on Vimpat and Depakote at home, and patient states that she has not missed any doses. EMS was called yesterday evening for breakthrough seizure. In route, the patient received a total of 10 mg of IM Versed. At some point, the patient stopped seizing. Brain CT on arrival did not show any acute intracranial abnormality. She was admitted originally to the cardiac stepdown unit. Early this morning, the patient had a sustained seizure. I was told that this was a generalized tonic-clonic seizure involving all 4 extremities. No bowel or bladder incontinence. No tongue biting. No vomiting. A rapid response was called, and the patient did receive a total of 2 mg of IV Ativan, seizure was sustained for greater than 5 minutes. Neurology was contacted and recommended transfer to the intensive care unit and intubation for airway protection. SALES ORDER CLERK performed rapid sequence intubation during the A-team. The patient was moved to the intensive care unit, in room 263. On my evaluation, the patient is intubated to the mechanical ventilator. She is sedated on propofol which is currently infusing at 50 mcg/kg/min. No further seizure activity at this time. Postintubation chest x-ray shows the endotracheal tube in good location. The nasogastric tube called back to the GE junction, and could be withdrawn 5 to 10 cm. Otherwise, no acute cardiopulmonary process. Initial ventilator settings include assist-control, respiratory rate 18, tidal volume 400, FiO2 100%, and PEEP of 5. Follow-up ABG as a PaO2 of 397, pCO2 of 37, pH of 7.44. FiO2 was weaned down to 40%, and will be weaned down further as tolerated. Initial CBC has some normocytic normochromic anemia, hemoglobin appears stable from baseline. CMP unremarkable. CBG 75 mg/dL. Urine drug screen positive for opiates, otherwise negative. Depakote level 59. Patient will remain intubated, at least overnight. Antiepileptic medications were being adjusted per neurology. At this point in time, the patient is intubated on the mechanical ventilator. No seizure activity has been noted. EEG is in progress. The kurt yancey was started on Vimpat. Depakote level has been dropping and is subtherapeutic at this point in time. The patient is was sedated on propofol which is running at 50 mcg/kg/min. The patient is on normal saline at rate of 75 cc an hour. No other significant events overnight. Awaiting neurology consultation. Started on room on today's evaluation of 05/27/2023, the patient is being seen for a follow-up. No seizure activity has been noted over the past 24 hours. The patient is currently on a combination of Vimpat and Depakote. Earlier this morning, the patient was on propofol. She was taken off the propofol and the patient was arousable and following commands and answering questions and moving all 4 extremities without limitation. Weaning parameters showed a rapid shallow breathing index of 38, vital capacity of 745 and a spontaneous tidal volume of 545 with a respirate of 21. Following that, the patient was given a 30 minutes of spontaneous breathing trial with a pressure support of 5 and a PEEP of 5. Chest x-ray from today shows no acute abnormalities. ET tube is in a good location. No airspace disease or consolidations. Hemodynamically, the patient is stable. Labs from today shows a WBC count of 8.3 with a hemoglobin 9.6 and a platelet count of 190. Sodium is at 139 and potassium level of 3.8, chloride is 107 and a bicarb level of 24. BUN is 12 with a creatinine of 0.6. UA was abnormal and the patient was found to have excessive RBCs with WBCs. Not sure this is infection that could be a traumatic collection. There was some few bacteria and the nitrite was positive. The patient is running a low-grade fever 100.2 this morning. She is not on any form of antibiotic coverage for now. Pandey catheter is in place. EEG this morning showed slowing and drug-induced encephalopathy. No focal epileptiform discharges. Objective - Vital Signs Vital signs: Vital Signs Temp 100.2 F H 05/27/23 08:00 Pulse 100 04/12/24 09:00 Resp 20 05/27/23 09:00 BP 126/81 05/27/23 09:00 Pulse Ox 100 05/27/23 09:00 FiO2 30 05/27/23 09:30 Intake & Output 05/26/23 05/27/23 05/27/23 18:59 06:59 18:59 Intake Total 992.904 925 350.485 Output Total 1200 815 250 Balance -207.096 110 100.485 Weight 83.7 kg Intake: IV 750 825 235 Invasive Line 1 10 Sodium Chloride 0.9% 1, 750 825 225 000 ml @ 75 mls/hr IV . [id number] ONE Rx#:[id number] Intake, IV Titration 242.904 100 115.485 Amount propofoL 1,000 mg In 242.904 100 115.485 Empty Bag 1 bag @ 15 MCG/ KG/MIN 7.757 mls/hr IV . [id number] [facility] Rx#:[id number] Output: Urine 1200 815 250 Other: Voiding Method Indwelling Catheter Indwelling Catheter # Bowel Movements 0 - Exam GENERAL EXAM: Sedated 47-year-old female, awake and alert and she was extubated to nasal cannula HEAD: Normocephalic and atraumatic EYES: Normal reaction of pupils, equal size. NOSE: Clear with pink turbinates. THROAT: No erythema or exudates. NECK: No masses, no JVD. CHEST: No chest wall deformity. LUNGS: Equal air entry with no crackles, wheeze, rhonchi or dullness. Intubated and synchronous with mechanical ventilator. No substantial endotracheal secretions. CVS: S1 and S2 normal with no audible murmur, regular rhythm. No extra heart sounds ABDOMEN: No hepatosplenomegaly, active bowel sounds, no guarding or rigidity. SPINE: No scoliosis or deformity SKIN: No rashes. Left knee ecchymosis. CENTRAL NERVOUS SYSTEM: Neurologic the patient is awake and alert. Pupils are midline, round, equal, and reactive to light. No obvious facial asymmetry. DTRs are depressed bilaterally. No posturing. Babinski neutral. EXTREMITIES: There is no peripheral edema, clubbing, or cyanosis. Peripheral pulses are intact. - Labs CBC & Chem 7: 05/27/23 04:46 05/27/23 04:46 Labs: Abnormal Lab Results - Last 24 Hours (Table) 05/27/23 05/27/23 05/27/23 Range/Units 04:46 04:46 06:22 RBC 3.27 L (3.80-5.40) m/uL Hgb 9.6 L (11.4-16.0) gm/dL Hct 30.5 L (34.0-46.0) % Monocytes # 1.2 H (0-1.0) k/uL ABG pH 7.50 H (7.35-7.45) ABG pCO2 34 L (35-45) mmHg ABG pO2 111 H (83-108) mmHg ABG HCO3 27 H (21-25) mmol/L ABG Total CO2 28 H (19-24) mmol/L ABG O2 Saturation 98.6 H (94-97) % Calcium 7.9 L (8.4-10.2) mg/dL Urine Blood (Negative) Urine Nitrite (Negative) Ur Leukocyte Esterase (Negative) Urine RBC (0-5) /hpf Urine WBC (0-5) /hpf Urine Bacteria (None) /hpf 05/27/23 Range/Units 08:50 RBC (3.80-5.40) m/uL Hgb (11.4-16.0) gm/dL Hct (34.0-46.0) % Monocytes # (0-1.0) k/uL ABG pH (7.35-7.45) ABG pCO2 (35-45) mmHg ABG pO2 (83-108) mmHg ABG HCO3 (21-25) mmol/L ABG Total CO2 (19-24) mmol/L ABG O2 Saturation (94-97) % Calcium (8.4-10.2) mg/dL Urine Blood Large H (Negative) Urine Nitrite Positive H (Negative) Ur Leukocyte Esterase Trace H (Negative) Urine RBC >182 H (0-5) /hpf Urine WBC 141 H (0-5) /hpf Urine Bacteria Few H (None) /hpf Microbiology - Last 24 Hours (Table) 05/26/23 01:50 Gram Stain - Preliminary Sputum Assessment and Plan Plan: Status epilepticus, patient reportedly had a generalized tonic-clonic seizure, refractory to benzodiazepine administration, lasting greater than 5 minutes. Patient was intubated for airway protection. The patient is currently free of any seizure activity. The patient is sedated on propofol. EEG from yesterday and today are both negative for any seizure activity.. CAT scan of the brain has been negative. The patient is clinically stable and hemodynamically stable. Awaiting neurology consultation. Patient is currently on a combination of Vimpat and Depakote. Mechanical ventilator management, patient was intubated for airway protection, currently on a assist-control mode of mechanical ventilation. Chest x-ray was noted and free of any acute pulm infiltrates. Blood gas was also noted. The patient was weaned off the mechanical ventilator today without any major diffi culties and currently she is on oxygen by nasal cannula. History of breakthrough seizures History of seizure disorder History of GERD with esophagitis History of sleeve gastrectomy Chronic anemia, hemoglobin stable History of MRSA cellulitis History of anxiety/depression Chronic back pain Hyperlipidemia Possible histo History of nephrolithiasis History of a urine tract infection with sepsis back in 2022 History of 5.5 cm right ovarian cystry of TIA, as reported by spouse, mirlande ragsdale records from [facility] Plan: Patient has been extubated to nasal cannula No evidence of any aspiration pneumonia EEG from today was negative for any seizure activity Monitor for further seizure activity Antiepileptic medications were adjusted by neurologist Continue Vimpat and valproic acid, levels to be monitored by neurology CT of the brain without contrast reviewed Continue supportive care in the intensive care unit. Will continue to follow and collaborate with neurology. This critical care evaluation was done more than 30 minutes we will continue to follow the patient. Time with Patient: Greater than 30
[2023-05-27] MEDS ORDERED: MORPHINE SULFATE 2 MG/ML SYRINGE IVP PRN (19:33)
[2023-05-27] MEDS: LIDOCAINE 4% PATCH TOPICAL SCH (20:16)
[2023-05-27] MEDS: HYDROmorphone 0.5 MG/0.5 ML SYRINGE IVP PRN (20:16)
--- NOTE | 2023-05-27 21:10 | US ---
EXAMINATION TYPE: US renals and bladder DATE OF EXAM: 05/27/2023 COMPARISON: Ultrasound kidneys 01/18/2023 CLINICAL INDICATION: Female, 47 years old with history of back pain and uti; Back pain, UTI EXAM MEASUREMENTS: Right Kidney: 12.3 x 4.4 x 5.1 cm Left Kidney: 11.2 x 5.9 x 4.9 cm Right Kidney: Fairly circumscribed appearing cystic lesions, largest = 2.5 x 2.3 x 2.8cm partially ex ophytic in the interpolar region. These are likely cysts, but some images suggest slightly more compl ex appearance which could indicate proteinaceous/hemorrhagic cysts--- if of concern MRI could further characterize. Echogenic foci noted, largest = 0.7cm Left Kidney: echogenic focus lower pole = 0.4cm Bladder: Bladder is decompressed by a Pandey catheter and not well evaluated. No evidence of hydronephrosis bilaterally. IMPRESSION: 1. Bilateral echogenic foci may represent renal calculi. 2. No evidence of hydronephrosis. 3. Cystic lesions of the right kidney, largest 2.8 cm. Follow-up surveillance may be obtained.
--- NOTE | 2023-05-28 00:26 | P.PN ---
Subjective This is a pleasant 47 years old female with history of seizure and multiple medical problems as below, including GERD migraine, tachycardia she has history of gastric sleeve surgery and bariatric surgery cholecystectomy. She has history of anxiety and depression Looks like patient came yesterday with 3-4 episodes of seizure before coming to the hospital by EMS. It was reported she has a history of seizure on Depakote and Vimpat Patient was admitted initially to the general medical floor, however patient had recurrent/prolonged seizure up to 6 minutes, a team was called and patient was intubated and sent to the intensive care unit. Currently patient seen in room 263. She is getting the propofol but no Precedex She had low-grade temperature today 99.7 but rest of vitals look stable Labs reviewed and they are unremarkable CBC, BMP, LFT, INR, troponin, lipase. Hemoglobin at baseline 9.7 Magnesium low 1.5 Urinalysis is suspicious for moderate leukocyte esterase and WBC 19 but RBC more than 182 Blood and protein acid level was subtherapeutic at 29.6, with the reference therapeutic ranges 50-120 Chest x-ray is negative for acute process CT brain: No acute abnormality EKG showing sinus rhythm at [address]-T changes 05/27/2023 When I saw the patient in the morning she was still intubated on mechanical ventilation However through the day patient got extubated and she was complaining from back pain as per staff Patient also she had some fever today Urinalysis looks abnormal suspicious for UTI, patient started on Rocephin and Culture and sensitivity is requested. Renal ultrasound is ordered and I reviewed myself showing no significant abnormality or hydronephrosis however patient and son cyst on the right kidney. Remains on Vimpat Active Medications Generic Name Dose Route Start Last Admin Trade Name Freq PRN Reason Stop Dose Admin Hydrocodone Bitart/Acetaminophen 1 each 05/27/23 12:05 05/27/23 13:01 Hydrocodone/Apap 7.5-325mg 1 Each Tab PO 1 each TID PRN Administration pain Famotidine 20 mg 05/26/23 09:00 05/27/23 08:47 Famotidine 20 Mg/2 Ml Vial IV 20 mg DAILY BRYCE Administration Heparin Sodium (Porcine) 5,000 unit 05/26/23 09:00 05/27/23 20:17 Heparin Sodium,Porcine 5,000 Unit/Ml 1 Ml Vial SQ 5,000 unit Q12HR BRYCE Administration Hydromorphone HCl 0.5 mg 05/27/23 20:01 05/27/23 20:16 Hydromorphone 0.5 Mg/0.5 Ml Syringe IVP 0.5 mg Q6HR PRN Administration Pain Sodium Chloride 1,000 mls @ 75 mls/hr 05/26/23 10:00 05/27/23 08:27 Saline 0.9% IV 75 mls/hr .[id number] BRYCE Administration Valproic Acid 1,000 mg/ Sodium 60 mls @ 50 mls/hr 05/26/23 21:00 05/27/23 20:17 Chloride IVPB 50 mls/hr Q12HR BRYCE Administration Ceftriaxone Sodium 2 gm/ 50 mls @ 100 mls/hr 05/27/23 19:45 05/27/23 20:17 Sodium Chloride IVPB 100 mls/hr Q24HR BRYCE Administration Protocol Lacosamide 150 mg 05/25/23 22:00 05/27/23 20:16 Lacosamide Iv (Ages 17+ Yrs) 200 Mg/20 Ml Ml IVP 150 mg TID BRYCE Administration Lidocaine 1 patch 05/27/23 19:45 05/27/23 20:16 Lidocaine 4% Patch TOPICAL 1 patch DAILY BRYCE Administration Protocol Lorazepam 1 mg 05/25/23 20:25 05/27/23 19:14 Lorazepam 2 Mg/Ml Inj IV 1 mg Q1HR PRN Administration Seizures Miscellaneous Information 1 each 05/26/23 03:20 Potassium Replacement Protocol 1 Each Misc MISCELLANE DAILY PRN Per Protocol Protocol Miscellaneous Information 1 each 05/26/23 03:21 Magnesium Replacement Protocol 1 Each Misc MISCELLANE DAILY PRN Per Protocol Protocol Naloxone HCl 0.2 mg 05/26/23 01:12 Naloxone 0.4 Mg/Ml 1 Ml Vial IV Q2M PRN Opioid Reversal Ondansetron HCl 4 mg 05/27/23 12:06 Ondansetron 4 Mg Tab PO TID PRN Nausea Objective - Vital Signs Vital signs: Vital Signs Temp 98.2 F 05/27/23 12:00 Pulse 85 05/27/23 13:00 Resp 18 05/27/23 13:00 BP 124/87 05/27/23 13:00 Pulse Ox 100 05/27/23 13:00 FiO2 30 05/27/23 09:30 Intake & Output 05/26/23 05/27/23 05/27/23 18:59 06:59 18:59 Intake Total 992.904 925 660.485 Output Total 1200 815 475 Balance -207.096 110 185.485 Weight 83.7 kg Intake: IV 750 825 545 Invasive Line 1 20 Sodium Chloride 0.9% 1, 750 825 525 000 ml @ 75 mls/hr IV . [id number] [facility] Rx#:[id number] Intake, IV Titration 242.904 100 115.485 Amount propofoL 1,000 mg In 242.904 100 115.485 Empty Bag 1 bag @ 15 MCG/ KG/MIN 7.757 mls/hr IV . [id number] [facility] Rx#:[id number] Output: Urine 1200 815 475 Other: Voiding Method Indwelling Catheter Indwelling Catheter Indwelling Catheter # Bowel Movements 0 - Exam -The patient is a 51 GENERAL: The patient is intubated and sedated HEENT: Pupils are round and equally reacting to light. EOMI. No scleral icterus. No conjunctival pallor. Normocephalic, atraumatic. No pharyngeal erythema. No thyromegaly. CARDIOVASCULAR: S1 and S2 present. No murmurs, rubs, or gallops. PULMONARY: Chest is clear to auscultation, no wheezing , no crackles. ABDOMEN: Soft, nontender, nondistended, normoactive bowel sounds. No palpable organomegaly. MUSCULOSKELETAL: No joint swelling or deformity. EXTREMITIES: No cyanosis, clubbing, or pedal edema. NEUROLOGICAL: Gross neurological examination did not reveal any focal deficits. SKIN: No rashes. no petechiae. - Labs CBC & Chem 7: 05/27/23 04:46 05/27/23 04:46 Labs: Abnormal Lab Results - Last 24 Hours (Table) 05/27/23 05/27/23 05/27/23 Range/Units 04:46 04:46 06:22 RBC 3.27 L (3.80-5.40) m/uL Hgb 9.6 L (11.4-16.0) gm/dL Hct 30.5 L (34.0-46.0) % Monocytes # 1.2 H (0-1.0) k/uL ABG pH 7.50 H (7.35-7.45) ABG pCO2 34 L (35-45) mmHg ABG pO2 111 H (83-108) mmHg ABG HCO3 27 H (21-25) mmol/L ABG Total CO2 28 H (19-24) mmol/L ABG O2 Saturation 98.6 H (94-97) % Calcium 7.9 L (8.4-10.2) mg/dL Urine Blood (Negative) Urine Nitrite (Negative) Ur Leukocyte Esterase (Negative) Urine RBC (0-5) /hpf Urine WBC (0-5) /hpf Urine Bacteria (None) /hpf 05/27/23 Range/Units 08:50 RBC (3.80-5.40) m/uL Hgb (11.4-16.0) gm/dL Hct (34.0-46.0) % Monocytes # (0-1.0) k/uL ABG pH (7.35-7.45) ABG pCO2 (35-45) mmHg ABG pO2 (83-108) mmHg ABG HCO3 (21-25) mmol/L ABG Total CO2 (19-24) mmol/L ABG O2 Saturation (94-97) % Calcium (8.4-10.2) mg/dL Urine Blood Large H (Negative) Urine Nitrite Positive H (Negative) Ur Leukocyte Esterase Trace H (Negative) Urine RBC >182 H (0-5) /hpf Urine WBC 141 H (0-5) /hpf Urine Bacteria Few H (None) /hpf Microbiology - Last 24 Hours (Table) 05/26/23 01:50 Gram Stain - Preliminary Sputum Assessment and Plan Assessment: Breakthrough seizure with status epilepticus in view of her history of seizure Acute hypoxic respiratory failure secondary to above "airway s/p intubation History of GERD, s/p gastric sleeve surgery History of anxiety and depression Plan: Patient currently kept on Vimpat 150 mg 3 times daily. Repeat urine analysis and urine culture suspicious for UTI, started on Rocephin and follow-up culture Renal ultrasound Ativan as needed Labs and medication were reviewed.. Continue same treatment. Continue with symptomatic treatment. Resume home medication. Monitor labs and vitals. DVT and GI prophylaxis. Further recommendations as per clinical course of the patient DVT prophylaxis: Subcutaneous heparin GI Prophylaxis: Pepcid Prognosis is guarded
[2023-05-28 05:24] LABS: Basophils % (A) 1 %; Eosinophils # (A) 0.1 k/uL (0-0.7); Eosinophils % (A) 1 %; HCT 28.9 % (34.0-46.0); HGB 8.8 gm/dL (11.4-16.0); Hypochromasia Moderate; Lymphocytes # (A) 1.9 k/uL (1.0-4.8); Lymphocytes % (A) 24 %; MCH 28.7 pg (25.0-35.0); MCHC 30.6 g/dL (31.0-37.0); MCV 93.9 fL (80.0-100.0); Monocytes % (A) 12 %; Neutrophils # (A) 4.8 k/uL (1.3-7.7); Neutrophils % (A) 61 %; Platelet Count 182 k/uL (150-450); RBC 3.07 m/uL (3.80-5.40); RDW 13.7 % (11.5-15.5); WBC 7.9 k/uL (3.8-10.6)
[2023-05-28 05:37] LABS: African American GFR (CKD) >90 (>60 ml/min/1.73 sqM); Anion Gap 7 mmol/L; Blood Urea Nitrogen 12 mg/dL (7-17); Calcium 8.1 mg/dL (8.4-10.2); Carbon Dioxide 24 mmol/L (22-30); Chloride 108 mmol/L (98-107); Glucose 91 mg/dL (74-99); Non-African American GFR(CKD) >90 (>60 ml/min/1.73 sqM); Potassium 3.6 mmol/L (3.5-5.1); Sodium 139 mmol/L (137-145)
[2023-05-28] MEDS: POTASSIUM BICARBONATE/CIT AC 20 MEQ TABLET.EFF NG-TUBE SCH (06:13)
[2023-05-28] MEDS: ONDANSETRON 4 MG TAB PO PRN (09:01)
--- NOTE | 2023-05-28 09:50 | P.PN ---
Subjective Progress Note Date: 05/28/23 Patient is a 47-year-old white female with past medical history significant for seizure disorder, chronic back pain, anxiety and depression, GERD with esophagitis, MRSA skin infections, among other things. Of note, patient had a recent hospital admission back in April, for breakthrough seizures. Her neurologist is local, Dr. Galeano. Patient's is at bedside, and also states that she had a recent evaluation for possible "small stroke" at [facility] 2 to 3 weeks ago. He denies recreational drug use or alcohol use. She does take [place] for chronic back pain. Patient is on Vimpat and Depakote at home, and patient states that she has not missed any doses. EMS was called yesterday evening for breakthrough seizure. In route, the patient received a total of 10 mg of IM Versed. At some point, the patient stopped seizing. Brain CT on arrival did not show any acute intracranial abnormality. She was admitted originally to the cardiac stepdown unit. Early this morning, the patient had a sustained seizure. I was told that this was a generalized tonic-clonic seizure involving all 4 extremities. No bowel or bladder incontinence. No tongue biting. No vomiting. A rapid response was called, and the patient did receive a total of 2 mg of IV Ativan, seizure was sustained for greater than 5 minutes. Neurology was contacted and recommended transfer to the intensive care unit and intubation for airway protection. METAPHYSICIAN performed rapid sequence intubation during the A-team. The patient was moved to the intensive care unit, in room 263. On my evaluation, the patient is intubated to the mechanical ventilator. She is sedated on propofol which is currently infusing at 50 mcg/kg/min. No further seizure activity at this time. Postintubation chest x-ray shows the endotracheal tube in good location. The nasogastric tube called back to the GE junction, and could be withdrawn 5 to 10 cm. Otherwise, no acute cardiopulmonary process. Initial ventilator settings include assist-control, respiratory rate 18, tidal volume 400, FiO2 100%, and PEEP of 5. Follow-up ABG as a PaO2 of 397, pCO2 of 37, pH of 7.44. FiO2 was weaned down to 40%, and will be weaned down further as tolerated. Initial CBC has some normocytic normochromic anemia, hemoglobin appears stable from baseline. CMP unremarkable. CBG 75 mg/dL. Urine drug screen positive for opiates, otherwise negative. Depakote level 59. Patient will remain intubated, at least overnight. Antiepileptic medications were being adjusted per neurology. At this point in time, the patient is intubated on the mechanical ventilator. No seizure activity has been noted. EEG is in progress. The kurt yancey was started on Vimpat. Depakote level has been dropping and is subtherapeutic at this point in time. The patient is was sedated on propofol which is running at 50 mcg/kg/min. The patient is on normal saline at rate of 75 cc an hour. No other significant events overnight. Awaiting neurology consultation. Started on room on today's evaluation of 05/27/2023, the patient is being seen for a follow-up. No seizure activity has been noted over the past 24 hours. The patient is currently on a combination of Vimpat and Depakote. Earlier this morning, the patient was on propofol. She was taken off the propofol and the patient was arousable and following commands and answering questions and moving all 4 extremities without limitation. Weaning parameters showed a rapid shallow breathing index of 38, vital capacity of 745 and a spontaneous tidal volume of 545 with a respirate of 21. Following that, the patient was given a 30 minutes of spontaneous breathing trial with a pressure support of 5 and a PEEP of 5. Chest x-ray from today shows no acute abnormalities. ET tube is in a good location. No airspace disease or consolidations. Hemodynamically, the patient is stable. Labs from today shows a WBC count of 8.3 with a hemoglobin 9.6 and a platelet count of 190. Sodium is at 139 and potassium level of 3.8, chloride is 107 and a bicarb level of 24. BUN is 12 with a creatinine of 0.6. UA was abnormal and the patient was found to have excessive RBCs with WBCs. Not sure this is infection that could be a traumatic collection. There was some few bacteria and the nitrite was positive. The patient is running a low-grade fever 100.2 this morning. She is not on any form of antibiotic coverage for now. Pandey catheter is in place. EEG this morning showed slowing and drug-induced encephalopathy. No focal epileptiform discharges. on today's evaluation of 05/28/2023, I am seeing the patient for a follow-up. Note that the patient was weaned off the mechanical ventilator and was extubated yesterday without any major difficulties. At around 7 PM yesterday, she had another brief episode of seizure that lasted approximately 2.5 minutes. During the process, she was given 1 mg of Ativan. She remains on a combination of antiepileptic medication and she is currently on Vimpat 150 mg 3 times daily and valproic acid 1 g every 12 hours. Valproic acid level is therapeutic at this point in time. She is awake and alert. Her prolactin level is elevated which is expected following a seizure activity. Prolactin level is currently at 47. No . Electrolytes are all within normal limits. White cell count is at 7.9 with a hemoglobin of 8.8. It was noted that the patient was having some hematuria. She was started on IV Rocephin. Ultrasound of the kidneys was done that showed bilateral foci in the kidneys which may potentially represent renal calculi. No evidence of an hydronephrosis. A cystic right kidney lesion was also seen measuring around 2.8 cm in size. Note that the patient also has history of polycystic ovary disease. She is awake and alert this morning. She is communicating. Her last EEG from yesterday morning was essentially normal. She is taking [place] for pain control and as-needed basis. Objective - Vital Signs Vital signs: Vital Signs Temp 97.6 F 05/28/23 08:00 Pulse 86 05/28/23 08:00 Resp 15 05/28/23 08:00 BP 131/89 05/28/23 08:00 Pulse Ox 99 05/28/23 08:00 FiO2 30 05/27/23 09:30 Intake & Output 05/27/23 05/28/23 05/28/23 18:59 06:59 18:59 Intake Total 1810.485 910 0 Output Total 965 715 125 Balance 845.485 195 -125 Weight 82.7 kg Intake: IV 1035 910 0 Invasive Line 1 30 Invasive Line 2 30 10 Sodium Chloride 0.9% 1, 825 000 ml @ 75 mls/hr IV . [id number] [facility] Rx#:[id number] Sodium Chloride 0.9% 1, 150 900 0 000 ml @ 75 mls/hr IV . [id number] [facility] Rx#:[id number] Intake, IV Titration 115.485 Amount propofoL 1,000 mg In 115.485 Empty Bag 1 bag @ 15 MCG/ KG/MIN 7.757 mls/hr IV . [id number] [facility] Rx#:[id number] Oral 660 Output: Urine 965 715 125 Other: Voiding Method Indwelling Catheter Indwelling Catheter # Bowel Movements 0 1 - Exam GENERAL EXAM: S awake and alert and she is currently on room air oxygen. Communicating. HEAD: Normocephalic and atraumatic EYES: Normal reaction of pupils, equal size. NOSE: Clear with pink turbinates. THROAT: No erythema or exudates. NECK: No masses, no JVD. CHEST: No chest wall deformity. LUNGS: Equal air entry with no crackles, wheeze, rhonchi or dullness. Intubated and synchronous with mechanical ventilator. No substantial endotracheal secretions. CVS: S1 and S2 normal with no audible murmur, regular rhythm. No extra heart sounds ABDOMEN: No hepatosplenomegaly, active bowel sounds, no guarding or rigidity. SPINE: No scoliosis or deformity SKIN: No rashes. Left knee ecchymosis. CENTRAL NERVOUS SYSTEM: Neurologic the patient is awake and alert. Pupils are midline, round, equal, and reactive to light. No obvious facial asymmetry. DTRs are depressed bilaterally. No posturing. Babinski neutral. EXTREMITIES: There is no peripheral edema, clubbing, or cyanosis. Peripheral pu lses are intact. - Labs CBC & Chem 7: 05/28/23 04:15 05/28/23 04:15 Labs: Abnormal Lab Results - Last 24 Hours (Table) 05/28/23 05/28/23 Range/Units 04:15 04:15 RBC 3.07 L (3.80-5.40) m/uL Hgb 8.8 L (11.4-16.0) gm/dL Hct 28.9 L (34.0-46.0) % MCHC 30.6 L (31.0-37.0) g/dL Chloride 108 H (98-107) mmol/L Calcium 8.1 L (8.4-10.2) mg/dL Microbiology - Last 24 Hours (Table) 05/26/23 01:50 Gram Stain - Final Sputum Sputum Culture - Final Assessment and Plan Plan: Status epilepticus, patient reportedly had a generalized tonic-clonic seizure, refractory to benzodiazepine administration, lasting greater than 5 minutes. Patient was intubated for airway protection. The patient is currently free of any seizure activity. The patient was extubated yesterday. Another bout of a brief seizure occurred yesterday at around 7 PM. The patient remains on a combination of Vimpat and valproic acid. Mechanical ventilator management, extubated, currently on room air oxygen. History of breakthrough seizures History of seizure disorder History of GERD with esophagitis History of sleeve gastrectomy Chronic anemia, hemoglobin stable History of MRSA cellulitis History of anxiety/depression Chronic back pain Hyperlipidemia Possible histo History of nephrolithiasis, and a renal cyst History of a urine tract infection with sepsis back in 2022 History of 5.5 cm right ovarian Previous history of TIA, as reported by spouse Elevated procalcitonin level related to seizure activity occurred recently. Hematuria, likely related to nephrolithiasis. No evidence of any urine tract infection. The patient is currently on IV Rocephin pending cultures. Plan: Patient is currently on room air oxygen No evidence of any aspiration pneumonia EEG from from yesterday was negative for any seizure activity Monitor for further seizure activity Antiepileptic medications were adjusted by neurologist Continue Vimpat and valproic acid, levels to be monitored by neurology CT of the brain without contrast reviewed Continue supportive care in the intensive care unit. Will continue to follow and collaborate with neurology. .
[2023-05-28 10:09] LABS: Potassium 4.2 mmol/L (3.5-5.1)
[2023-05-28 10:17] LABS: Valproic Acid (Depakene) 46.3 ug/mL
--- NOTE | 2023-05-28 16:45 | P.PN ---
Subjective Progress Note Date: 05/28/23 Patient is a 47-year-old female came with status epilepticus. Patient has been seen by myself in prior admissions as well. Her seizures have resolved. EEG revealed severe encephalopathy but no seizures. Dr. Nieves has increased Depakote from 750 mg twice daily to 1 g twice daily. Per nursing report, patient was extubated yesterday at 10:30 AM. Patient had 1 spell at around 7:10 PM, when she noticed that her arms were twitching, chest jerked a few times, her eyes rolled back in the head. She was not responding at that time. Patient was given Ativan 1 mg and she has been fine since then. No further seizure-like activity noted. Came to see the patient, patient's was also present by the bedside. Both of them states that she is doing well. No seizures as of today. Offers no complaints. Patient is sitting comfortably in the bed. Objective - Vital Signs Vital signs: Vital Signs Temp 98.3 F 05/28/23 12:00 Pulse 76 05/28/23 16:00 Resp 16 05/28/23 16:00 BP 137/94 05/28/23 16:00 Pulse Ox 100 05/28/23 16:00 FiO2 30 05/27/23 09:30 Intake & Output 05/27/23 05/28/23 05/28/23 18:59 06:59 18:59 Intake Total 1810.113 628 8569 Output Total 965 715 725 Balance 845.485 195 605 Weight 82.7 kg Intake: IV 1035 910 730 Invasive Line 1 30 Invasive Line 2 30 10 Invasive Line 4 30 Sodium Chloride 0.9% 1, 825 000 ml @ 75 mls/hr IV . [id number] [facility] Rx#:[id number] Sodium Chloride 0.9% 1, 150 900 600 000 ml @ 75 mls/hr IV . [id number] [facility] Rx#:[id number] Valproate Sodium 1,000 mg 50 In Sodium Chloride 0.9% 50 ml @ 50 mls/hr IVPB Q12HR [facility] Rx#:[id number] cefTRIAXone 2 gm In 50 Sodium Chloride 0.9% 50 ml @ 100 mls/hr IVPB Q24HR [facility] Rx#:[id number] Intake, IV Titration 115.485 Amount propofoL 1,000 mg In 115.485 Empty Bag 1 bag @ 15 MCG/ KG/MIN 7.757 mls/hr IV . [id number] [facility] Rx#:[id number] Oral 660 600 Output: Urine 965 715 725 Stool 0 Other: Voiding Method Indwelling Catheter Indwelling Catheter Toilet Bedside Commode # Voids 0 # Bowel Movements 0 0 - Exam Patient is alert and awake. His speech and language functions are normal. Detailed testing deferred. - Labs CBC & Chem 7: 05/28/23 04:15 05/28/23 09:23 Labs: Abnormal Lab Results - Last 24 Hours (Table) 05/28/23 05/28/23 Range/Units 04:15 04:15 RBC 3.07 L (3.80-5.40) m/uL Hgb 8.8 L (11.4-16.0) gm/dL Hct 28.9 L (34.0-46.0) % MCHC 30.6 L (31.0-37.0) g/dL Chloride 108 H (98-107) mmol/L Calcium 8.1 L (8.4-10.2) mg/dL Microbiology - Last 24 Hours (Table) 05/27/23 08:50 Urine Culture - Preliminary Urine,Voided Gram Neg Bacilli 05/26/23 01:50 Gram Stain - Final Sputum Sputum Culture - Final Assessment and Plan Assessment: this is a 47-year-old woman with history of seizures who has multiple hospital visits for breakthrough seizure and about a month ago she had clinical status epilepticus. She had multiple EEGs in the past which were unremarkablefacility for seizure. She presents to our emergency department because of multiple seizure and was in status epilepticus. Clinical status epilepticus---resolved. Patient is intubated on ventilator and on sedation History of multiple seizures and had multiple EEG in our facility which were negative for seizure. Unsure if has epileptic vs nonepileptic vs combination of both. History of gastric bypass in 2018 History of cellulitis in the right thigh History of chronic depression and anxiety Plan: Patient is on home Depakote 750mg bid and Vimpat 150mg tid that was modified by her neurologist (Dr. Galeano) about two weeks ago. Dr. Nieves has increased Depakote to 1gm bid with one time 1250mg once of Depakote since on level was subtherapeutic but on initial draw during this admission was normal. EEG was abnormal due to background slowing suggestive of severe encephalopathy. The excessive beta activity is due to medication effect (Ativan). There is no focal slowing, epileptiform discharges or seizure on the EEG. Clinical correlation is recommended. CT head is reported as no significant intracranial abnormality. Depakote level on admission was 58.9 (50-1 20), then went down to 29.6, then 93.8 and most recent 46.3 as of today. Seizure precaution and pads. The patient has an appointment with an epilepsy team over [facility] end of this month for further evaluation. I also highly recommend a prolonged EEG/Epilepsy monitoring unit for further evaluation of her seizure episodes if epileptic vs nonepileptic vs combination of both. She is following-up with psychiatrist as outpatient Will defer the rest of medical management to primary team and other specialist. Patient is doing well. We will continue to observe. Discussed with patient's nurse.
[2023-05-28] MEDS: LIDOCAINE 4% PATCH TOPICAL SCH (20:14)
[2023-05-28] MEDS: BENZOCAINE/MENTHOL LOZENG 1 EACH LOZENGE MUCOUS MEM PRN (22:04)
--- NOTE | 2023-05-29 01:10 | P.PN ---
Subjective This is a pleasant 47 years old female with history of seizure and multiple medical problems as below, including GERD migraine, tachycardia she has history of gastric sleeve surgery and bariatric surgery cholecystectomy. She has history of anxiety and depression Looks like patient came yesterday with 3-4 episodes of seizure before coming to the hospital by EMS. It was reported she has a history of seizure on Depakote and Vimpat Patient was admitted initially to the general medical floor, however patient had recurrent/prolonged seizure up to 6 minutes, a team was called and patient was intubated and sent to the intensive care unit. Currently patient seen in room 263. She is getting the propofol but no Precedex She had low-grade temperature today 99.7 but rest of vitals look stable Labs reviewed and they are unremarkable CBC, BMP, LFT, INR, troponin, lipase. Hemoglobin at baseline 9.7 Magnesium low 1.5 Urinalysis is suspicious for moderate leukocyte esterase and WBC 19 but RBC more than 182 Blood and protein acid level was subtherapeutic at 29.6, with the reference therapeutic ranges 50-120 Chest x-ray is negative for acute process CT brain: No acute abnormality EKG showing sinus rhythm at [address]-T changes 05/27/2023 When I saw the patient in the morning she was still intubated on mechanical ventilation However through the day patient got extubated and she was complaining from back pain as per staff Patient also she had some fever today Urinalysis looks abnormal suspicious for UTI, patient started on Rocephin and Culture and sensitivity is requested. Renal ultrasound is ordered and I reviewed myself showing no significant abnormality or hydronephrosis however patient and son cyst on the right kidney. Remains on Vimpat 05/28/2023 Patient s/p extubation, she is fully awake and oriented Yesterday she is complaining from back pain and she had a fever with abnormal urine analysis was suspicious of UTI and she was started on Rocephin urine cultures growing gram-negative bacilli This morning Pandey catheter was discontinued and she has some dysuria but now she feels better We are going to repeat the urine analysis to check for resolution of her symptoms On the infection might lower seizure threshold which requires treatment Renal ultrasound showed right kidney cyst 2.8 cm that requires surveillance Will consult urology service for her right kidney cyst Urology on the case and currently she is on Vimpat Also she is on normal saline 75 mL/h Back pain is controlled with Dilaudid, patient requested specifically. Objective - Vital Signs Vital signs: Vital Signs Temp 98.3 F 05/28/23 12:00 Pulse 83 05/28/23 19:00 Resp 12 05/28/23 19:00 BP 136/95 05/28/23 19:00 Pulse Ox 95 05/28/23 19:00 FiO2 30 05/27/23 09:30 Intake & Output 05/28/23 05/28/23 05/29/23 06:59 18:59 06:59 Intake Total 910 2080 75 Output Total 715 1025 0 Balance 195 1055 75 Weight 82.7 kg Intake: IV 910 880 75 Invasive Line 2 10 Invasive Line 4 30 Sodium Chloride 0.9% 1, 900 750 75 000 ml @ 75 mls/hr IV . [id number] [facility] Rx#:[id number] Valproate Sodium 1,000 mg 50 In Sodium Chloride 0.9% 50 ml @ 50 mls/hr IVPB Q12HR [facility] Rx#:[id number] cefTRIAXone 2 gm In 50 Sodium Chloride 0.9% 50 ml @ 100 mls/hr IVPB Q24HR [facility] Rx#:[id number] Oral 1200 Output: Urine 715 1025 0 Stool 0 Other: Voiding Method Indwelling Catheter Toilet Bedside Commode # Voids 0 # Bowel Movements 0 0 - Exam -General: The patient is awake and alert x 3 with no distress HEENT: Pupils are round and equally reacting to light. EOMI. No scleral icterus. No conjunctival pallor. Normocephalic, atraumatic. No pharyngeal erythema. No th yromegaly. CARDIOVASCULAR: S1 and S2 present. No murmurs, rubs, or gallops. PULMONARY: Chest is clear to auscultation, no wheezing , no crackles. ABDOMEN: Soft, nontender, nondistended, normoactive bowel sounds. No palpable organomegaly. MUSCULOSKELETAL: No joint swelling or deformity. EXTREMITIES: No cyanosis, clubbing, or pedal edema. NEUROLOGICAL: Gross neurological examination did not reveal any focal deficits. SKIN: No rashes. no petechiae. - Labs CBC & Chem 7: 05/28/23 04:15 05/28/23 09:23 Labs: Abnormal Lab Results - Last 24 Hours (Table) 05/28/23 05/28/23 Range/Units 04:15 04:15 RBC 3.07 L (3.80-5.40) m/uL Hgb 8.8 L (11.4-16.0) gm/dL Hct 28.9 L (34.0-46.0) % MCHC 30.6 L (31.0-37.0) g/dL Chloride 108 H (98-107) mmol/L Calcium 8.1 L (8.4-10.2) mg/dL Microbiology - Last 24 Hours (Table) 05/27/23 08:50 Urine Culture - Preliminary Urine,Voided Gram Neg Bacilli 05/26/23 01:50 Gram Stain - Final Sputum Sputum Culture - Final Assessment and Plan Assessment: Breakthrough seizure with status epilepticus in view of her history of seizure. Acute hypoxic respiratory failure secondary to above "airway s/p intubation. S/p extubation Possible acute urinary tract infection, symptomatic with dysuria and fever History of GERD, s/p gastric sleeve surgery History of anxiety and depression Plan: Continue with ceftriaxone and follow-up urine culture Consult urology for right kidney cyst Patient currently kept on Vimpat 150 mg 3 times daily. Repeat urine analysis and urine culture suspicious for UTI, started on Rocephin and follow-up culture Renal ultrasound Ativan as needed Labs and medication were reviewed.. Continue same treatment. Continue with symptomatic treatment. Resume home medication. Monitor labs and vitals. DVT and GI prophylaxis. Further recommendations as per clinical course of the patient DVT prophylaxis: Subcutaneous heparin GI Prophylaxis: Pepcid Prognosis is guarded
[2023-05-29 02:35] LABS: Appearance,Urine Clear (Clear); Bilirubin,Urine Negative (Negative); Blood,Urine Trace (Negative); Color,Urine Light Yellow; Glucose,Urine (UA) Negative (Negative); Ketones,Urine 1+ (Negative); Leukocyte Esterase,Urine Trace (Negative); Mucus,Urine Rare /hpf; Nitrite,Urine Negative (Negative); PH, Urine 6.5 (5.0-8.0); Protein,Urine Negative (Negative); RBC,Urine 9 /hpf (0-5); Specific Gravity,Urine 1.022 (1.001-1.035); Squamous Epithelial Cell,Urine 5 /hpf (0-4); Urobilinogen,Urine <2.0 mg/dL (<2.0); WBC,Urine 6 /hpf (0-5)
[2023-05-29 04:38] LABS: HCT 28.9 % (34.0-46.0); HGB 8.5 gm/dL (11.4-16.0); Hypochromasia Marked; MCHC 29.5 g/dL (31.0-37.0); Mean Platelet Volume 7.1; Platelet Count 205 k/uL (150-450); RBC 3.04 m/uL (3.80-5.40); RDW 13.7 % (11.5-15.5); WBC 5.5 k/uL (3.8-10.6)
[2023-05-29 05:01] LABS: African American GFR (CKD) >90 (>60 ml/min/1.73 sqM); Anion Gap 3 mmol/L; Blood Urea Nitrogen 13 mg/dL (7-17); Calcium 8.2 mg/dL (8.4-10.2); Carbon Dioxide 27 mmol/L (22-30); Chloride 108 mmol/L (98-107); Glucose 83 mg/dL (74-99); Magnesium 1.8 mg/dL (1.6-2.3); Non-African American GFR(CKD) >90 (>60 ml/min/1.73 sqM); Potassium 3.9 mmol/L (3.5-5.1); Sodium 138 mmol/L (137-145)
[2023-05-29] MEDS: MAGNESIUM SULFATE-D5W PMX 1 GM in DEXTROSE/WATER 1 100ML.BAG IVPB ONE (05:31)
[2023-05-29] MEDS: POTASSIUM CHLORIDE ER 20 MEQ TAB.ER PO SCH (05:31)
--- NOTE | 2023-05-29 09:20 | P.PN ---
Subjective Progress Note Date: 05/29/23 Patient is a 47-year-old white female with past medical history significant for seizure disorder, chronic back pain, anxiety and depression, GERD with esophagitis, MRSA skin infections, among other things. Of note, patient had a recent hospital admission back in April, for breakthrough seizures. Her neurologist is local, Dr. Galeano. Patient's is at bedside, and also states that she had a recent evaluation for possible "small stroke" at [facility] 2 to 3 weeks ago. He denies recreational drug use or alcohol use. She does take Selma's for chronic back pain. Patient is on Vimpat and Depakote at home, and patient states that she has not missed any doses. EMS was called yesterday evening for breakthrough seizure. In route, the patient received a total of 10 mg of IM Versed. At some point, the patient stopped seizing. Brain CT on arrival did not show any acute intracranial abnormality. She was admitted originally to the cardiac stepdown unit. Early this morning, the patient had a sustained seizure. I was told that this was a generalized tonic-clonic seizure involving all 4 extremities. No bowel or bladder incontinence. No tongue biting. No vomiting. A rapid response was called, and the patient did receive a total of 2 mg of IV Ativan, seizure was sustained for greater than 5 minutes. Neurology was contacted and recommended transfer to the intensive care unit and intubation for airway protection. TRUCK SPOTTER performed rapid sequence intubation during the A-team. The patient was moved to the intensive care unit, in room 263. On my evaluation, the patient is intubated to the mechanical ventilator. She is sedated on propofol which is currently infusing at 50 mcg/kg/min. No further seizure activity at this time. Postintubation chest x-ray shows the endotracheal tube in good location. The nasogastric tube called back to the GE junction, and could be withdrawn 5 to 10 cm. Otherwise, no acute cardiopulmonary process. Initial ventilator settings include assist-control, respiratory rate 18, tidal volume 400, FiO2 100%, and PEEP of 5. Follow-up ABG as a PaO2 of 397, pCO2 of 37, pH of 7.44. FiO2 was weaned down to 40%, and will be weaned down further as tolerated. Initial CBC has some normocytic normochromic anemia, hemoglobin appears stable from baseline. CMP unremarkable. CBG 75 mg/dL. Urine drug screen positive for opiates, otherwise negative. Depakote level 59. Patient will remain intubated, at least overnight. Antiepileptic medications were being adjusted per neurology. At this point in time, the patient is intubated on the mechanical ventilator. No seizure activity has been noted. EEG is in progress. The kurt yancey was started on Vimpat. Depakote level has been dropping and is subtherapeutic at this point in time. The patient is was sedated on propofol which is running at 50 mcg/kg/min. The patient is on normal saline at rate of 75 cc an hour. No other significant events overnight. Awaiting neurology consultation. Started on room on today's evaluation of 05/27/2023, the patient is being seen for a follow-up. No seizure activity has been noted over the past 24 hours. The patient is currently on a combination of Vimpat and Depakote. Earlier this morning, the patient was on propofol. She was taken off the propofol and the patient was arousable and following commands and answering questions and moving all 4 extremities without limitation. Weaning parameters showed a rapid shallow breathing index of 38, vital capacity of 745 and a spontaneous tidal volume of 545 with a respirate of 21. Following that, the patient was given a 30 minutes of spontaneous breathing trial with a pressure support of 5 and a PEEP of 5. Chest x-ray from today shows no acute abnormalities. ET tube is in a good location. No airspace disease or consolidations. Hemodynamically, the patient is stable. Labs from today shows a WBC count of 8.3 with a hemoglobin 9.6 and a platelet count of 190. Sodium is at 139 and potassium level of 3.8, chloride is 107 and a bicarb level of 24. BUN is 12 with a creatinine of 0.6. UA was abnormal and the patient was found to have excessive RBCs with WBCs. Not sure this is infection that could be a traumatic collection. There was some few bacteria and the nitrite was positive. The patient is running a low-grade fever 100.2 this morning. She is not on any form of antibiotic coverage for now. Pandey catheter is in place. EEG this morning showed slowing and drug-induced encephalopathy. No focal epileptiform discharges. on today's evaluation of 05/28/2023, I am seeing the patient for a follow-up. Note that the patient was weaned off the mechanical ventilator and was extubated yesterday without any major difficulties. At around 7 PM yesterday, she had another brief episode of seizure that lasted approximately 2.5 minutes. During the process, she was given 1 mg of Ativan. She remains on a combination of antiepileptic medication and she is currently on Vimpat 150 mg 3 times daily and valproic acid 1 g every 12 hours. Valproic acid level is therapeutic at this point in time. She is awake and alert. Her prolactin level is elevated which is expected following a seizure activity. Prolactin level is currently at 47. No . Electrolytes are all within normal limits. White cell count is at 7.9 with a hemoglobin of 8.8. It was noted that the patient was having some hematuria. She was started on IV Rocephin. Ultrasound of the kidneys was done that showed bilateral foci in the kidneys which may potentially represent renal calculi. No evidence of an hydronephrosis. A cystic right kidney lesion was also seen measuring around 2.8 cm in size. Note that the patient also has history of polycystic ovary disease. She is awake and alert this morning. She is communicating. Her last EEG from yesterday morning was essentially normal. She is taking Selma for pain control and as-needed basis. On 05/29/2023, I am seeing the patient for a follow-up. She is free of any seizures. No complaints. Awake and alert. Moving all 4 EXTR on the limitation. Gram-negative bacillus is growing in the urine and the patient is currently on IV Rocephin. The blood work from today shows a white cell count of 5.5 with a hemoglobin of 8.5 and a platelet count of 205, sodium is at 138, BUN is at 13 with a creatinine of 0.6 and a potassium level is at 3.9. The patient currently is on valproic acid 1 g every 12 hours and the patient is also on Vimpat 150 mg 3 times daily. Neurology is managing the antiepileptic drugs. Objective - Vital Signs Vital signs: Vital Signs Temp 97.7 F 05/29/23 08:00 Pulse 93 05/29/23 09:00 Resp 15 05/29/23 09:00 BP 118/66 05/29/23 09:00 Pulse Ox 98 05/29/23 09:00 FiO2 30 04/12/24 09:30 Intake & Output 05/28/23 05/29/23 05/29/23 18:59 06:59 18:59 Intake Total 2080 1030 835 Output Total 1025 450 350 Balance 1055 580 485 Weight 79.7 kg Intake: IV 880 980 235 Invasive Line 4 30 30 10 Sodium Chloride 0.9% 1, 750 900 225 000 ml @ 75 mls/hr IV . [id number] BRYCE Rx#:[id number] Valproate Sodium 1,000 mg 50 50 In Sodium Chloride 0.9% 50 ml @ 50 mls/hr IVPB Q12HR BRYCE Rx#:[id number] cefTRIAXone 2 gm In 50 Sodium Chloride 0.9% 50 ml @ 100 mls/hr IVPB Q24HR BRYCE Rx#:[id number] Oral 1200 50 600 Output: Urine 1025 450 350 Stool 0 Other: Voiding Method Toilet Toilet Toilet Bedside Commode Bedside Commode Bedside Commode # Voids 0 # Bowel Movements 0 0 0 - Exam GENERAL EXAM: S awake and alert and she is currently on room air oxygen. Communicating. HEAD: Normocephalic and atraumatic EYES: Normal reaction of pupils, equal size. NOSE: Clear with pink turbinates. THROAT: No erythema or exudates. NECK: No masses, no JVD. CHEST: No chest wall deformity. LUNGS: Equal air entry with no crackles, wheeze, rhonchi or dullness. Intubated and synchronous with mechanical ventilator. No substantial endotracheal secretions. CVS: S1 and S2 normal with no audible murmur, regular rhythm. No extra heart sounds ABDOMEN: No hepatosplenomegaly, active bowel sounds, no guarding or rigidity. SPINE: No scoliosis or deformity SKIN: No rashes. Left knee ecchymosis. CENTRAL NERVOUS SYSTEM: Neurologic the patient is awake and alert. Pupils are midline, round, equal, and reactive to light. No obvious facial asymmetry. DTRs are depressed bilaterally. No posturing. Babinski neutral. EXTREMITIES: There is no peripheral edema, clubbing, or cyanosis. Peripheral pulses are intact. - Labs CBC & Chem 7: 05/29/23 04:02 05/29/23 04:02 Labs: Abnormal Lab Results - Last 24 Hours (Table) 05/29/23 05/29/23 05/29/23 Range/Units 02:13 04:02 04:02 RBC 3.04 L (3.80-5.40) m/uL Hgb 8.5 L (11.4-16.0) gm/dL Hct 28.9 L (34.0-46.0) % MCHC 29.5 L (31.0-37.0) g/dL Chloride 108 H (98-107) mmol/L Calcium 8.2 L (8.4-10.2) mg/dL Urine Ketones 1+ H (Negative) Urine Blood Trace H (Negative) Ur Leukocyte Esterase Trace H (Negative) Urine RBC 9 H (0-5) /hpf Urine WBC 6 H (0-5) /hpf Ur Squamous Epith Cells 5 H (0-4) /hpf Urine Mucus Rare H (None) /hpf Microbiology - Last 24 Hours (Table) 05/27/23 08:50 Urine Culture - Preliminary Urine,Voided Gram Neg Bacilli 05/26/23 01:50 Gram Stain - Final Sputum Sputum Culture - Final Assessment and Plan Plan: Status epilepticus, patient reportedly had a generalized tonic-clonic seizure, refractory to benzodiazepine administration, lasting greater than 5 minutes. Patient was intubated for airway protection. The patient is currently free of any seizure activity. The patient was extubated yesterday. Another bout of a brief seizure occurred on 05/27/2023. None since.. The patient remains on a combination of Vimpat and valproic acid. Mechanical ventilator management, extubated, currently on room air oxygen. History of breakthrough seizures History of seizure disorder History of GERD with esophagitis History of sleeve gastrectomy Chronic anemia, hemoglobin stable History of MRSA cellulitis History of anxiety/depression Chronic back pain Hyperlipidemia Possible histo History of nephrolithiasis, and a renal cyst History of a urine tract infection with sepsis back in 2022 History of 5.5 cm right ovarian Previous history of TIA, as reported by spouse Elevated procalcitonin level related to seizure activity occurred recently. Hematuria, likely related to nephrolithiasis. No evidence of any urine tract infection. The patient is currently on IV Rocephin pending cultures. Plan: Patient is currently on room air oxygen No evidence of any aspiration pneumonia EEG from from yesterday was negative for any seizure activity Monitor for further seizure activity Antiepileptic medications were adjusted by neurologist Continue Vimpat and valproic acid, levels to be monitored by neurology CT of the brain without contrast reviewed Continue supportive care in the intensive care unit. Will continue to follow a nd collaborate with neurology. The patient can be moved to a medical surgical floor. .
[2023-05-29 14:03] VITALS: BP 122/77; PULSE 85; RESP 16; TEMP 98.2
--- NOTE | 2023-05-29 15:22 | P.PN ---
Subjective Progress Note Date: 05/29/23 05/29/2023: Patient was seen for a follow-up. Patient is sitting in the recliner, states feels much better, and wants to go home. No further seizures reported 05/28/2023: Patient is a 47-year-old female came with status epilepticus. Patient has been seen by myself in prior admissions as well. Her seizures have resolved. EEG revealed severe encephalopathy but no seizures. Dr. Nieves has increased Depakote from 750 mg twice daily to 1 g twice daily. Per nursing report, patient was extubated yesterday at 10:30 AM. Patient had 1 spell at around 7:10 PM, when she noticed that her arms were twitching, chest jerked a few times, her eyes rolled back in the head. She was not responding at that time. Patient was given Ativan 1 mg and she has been fine since then. No further seizure-like activity noted. Came to see the patient, patient's was also present by the bedside. Both of them states that she is doing well. No seizures as of today. Offers no complaints. Patient is sitting comfortably in the bed. Objective - Vital Signs Vital signs: Vital Signs Temp 98.2 F 05/29/23 13:23 Pulse 85 05/29/23 13:23 Resp 16 05/29/23 13:23 BP 122/77 05/29/23 13:23 Pulse Ox 97 05/29/23 13:23 FiO2 30 05/27/23 09:30 Intake & Output 05/28/23 05/29/23 05/29/23 18:59 06:59 18:59 Intake Total 2080 1030 1535 Output Total 5068 154 8126 Balance 1055 580 335 Weight 79.7 kg Intake: IV 880 980 335 Invasive Line 4 30 30 10 Sodium Chloride 0.9% 1, 750 900 225 000 ml @ 75 mls/hr IV . [id number] BRYCE Rx#:[id number] Valproate Sodium 1,000 mg 50 50 50 In Sodium Chloride 0.9% 50 ml @ 50 mls/hr IVPB Q12HR BRYCE Rx#:[id number] cefTRIAXone 2 gm In 50 50 Sodium Chloride 0.9% 50 ml @ 100 mls/hr IVPB Q24HR BRYCE Rx#:[id number] Oral 1200 50 1200 Output: Urine 2553 386 7743 Stool 0 Other: Voiding Method Toilet Toilet Toilet Bedside Commode Bedside Commode Bedside Commode # Voids 0 # Bowel Movements 0 0 0 - Exam Patient is alert and awake. Her speech and language functions are normal. Patient knows it is May 2023 and that she is in [place] in [place] in [facility] and name of the current president Mr. Magana. Face is symmetric. - Labs CBC & Chem 7: 05/29/23 04:02 05/29/23 09:56 Labs: Abnormal Lab Results - Last 24 Hours (Table) 05/29/23 05/29/23 05/29/23 Range/Units 02:13 04:02 04:02 RBC 3.04 L (3.80-5.40) m/uL Hgb 8.5 L (11.4-16.0) gm/dL Hct 28.9 L (34.0-46.0) % MCHC 29.5 L (31.0-37.0) g/dL Chloride 108 H (98-107) mmol/L Calcium 8.2 L (8.4-10.2) mg/dL Urine Ketones 1+ H (Negative) Urine Blood Trace H (Negative) Ur Leukocyte Esterase Trace H (Negative) Urine RBC 9 H (0-5) /hpf Urine WBC 6 H (0-5) /hpf Ur Squamous Epith Cells 5 H (0-4) /hpf Urine Mucus Rare H (None) /hpf Microbiology - Last 24 Hours (Table) 05/27/23 08:50 Urine Culture - Final Urine,Voided Escherichia coli Assessment and Plan Assessment: This is a 47-year-old woman with history of seizures who has multiple hospital visits for breakthrough seizure and about a month ago she had clinical status epilepticus. She had multiple EEGs in the past which were unremarkablefacility for seizure. She presents to our emergency department because of multiple se izure and was in status epilepticus. Clinical status epilepticus---resolved. Patient is intubated on ventilator and on sedation History of multiple seizures and had multiple EEG in our facility which were negative for seizure. Unsure if has epileptic vs nonepileptic vs combination of both. History of gastric bypass in 2018 History of cellulitis in the right thigh History of chronic depression and anxiety Plan: Patient is on home Depakote 750mg bid and Vimpat 150mg tid that was modified by her neurologist (Dr. Galeano) about two weeks ago. Dr. Nieves has increased Depakote to 1gm bid with one time 1250mg once of Depakote since on level was subtherapeutic but on initial draw during this admission was normal. EEG was abnormal due to background slowing suggestive of severe encephalopathy. The excessive beta activity is due to medication effect (Ativan). There is no focal slowing, epileptiform discharges or seizure on the EEG. Clinical correlation is recommended. CT head is reported as no significant intracranial abnormality. Depakote level on admission was 58.9 (50-1 20), then went down to 29.6, then 93.8 and most recent 46.3 as of yesterday. Seizure precaution and pads. The patient has an appointment with an epilepsy team over [facility] end of this month for further evaluation. I also highly recommend a prolonged EE G/Epilepsy monitoring unit for further evaluation of her seizure episodes if epileptic vs nonepileptic vs combination of both. She is following-up with psychiatrist as outpatient Will defer the rest of medical management to primary team and other specialist. Patient had no further seizures. She wants to go home. Neurologically clear for discharge. Recommend follow-up with neurologist outpatient within 1 week.
--- NOTE | 2023-06-01 09:57 | P.DS ---
Providers Date of admission: 05/26/23 06:51 Attending physician: Donald Louis Consults: 05/25/23 20:08 Consult Physician Urgent Consulting Provider: Brant Nieves Consult Reason/Comments: Seizure Do you want consulting provider notified?: Yes 05/26/23 01:11 Consult Physician Stat Consulting Provider: Jhony Ornelas Consult Reason/Comments: Status epilepticus; ventilator management; ICU management Do you want consulting provider notified?: Yes Primary care physician: Pauline [facility] Course: Diagnoses: Breakthrough seizure with status epilepticus in view of her history of seizure. resolved and pt is cleared for discharge by the neurologist, Acute hypoxic respiratory failure secondary to above "airway s/p intubation. S/p extubation acute urinary tract infection, symptomatic with dysuria and fever, secondary to sensitive E Coli History of GERD, s/p gastric sleeve surgery History of anxiety and depression hospital course : This is a pleasant 47 years old female with history of seizure and multiple medical problems as below, including GERD migraine, tachycardia she has history of gastric sleeve surgery and bariatric surgery cholecystectomy. She has history of anxiety and depression Patient came with 3-4 episodes of seizure before coming to the hospital by EMS. It was reported she has a history of seizure on Depakote and Vimpat Patient was admitted initially to the general medical floor, however patient had recurrent/prolonged seizure up to 6 minutes, a team was called and patient was intubated and sent to the intensive care unit. Patient was treated or evaluated by both pulmonary/critical care team and other neurologist. Patient had extensive workup including EEG and CT of the brain, which were rather indicative of continuous seizure, patient seizure medication increased Depakote 750 mg up to 1000 mg by neurologist while she kept on Vimpat 150 Mg 3 Times Daily. Patient seizure stopped and she was awake and alert oriented to time place and person. She was neurologically stable with no weakness no numbness and no other neurological symptoms Today after rounding in the late afternoon I received a note from staff that patient was cleared by neurologist and she is eager to go home today." i called the pt and talked to her and to staff, Pulmonary and neurology services have cleared her for discharge she is adamant to go today , then i talked to who confirms to me she can go home from his perspective and that he kindly provided the prescription for the depakote and pt stated she has the prescription at home for vimpat, script for ceftin upon discharge are also sent to the pharmacy of [facility]. Patient denies any other new complaints Problems and management plan were discussed with the patient and he verbalized understanding and acceptance Patient was found stable and can be discharged home in guarded prognosis however he needs follow-up as an outpatient. Patient was instructed to follow up with PCP Dr. Casey within one week and patient agrees Patient was instructed to follow-up with her neurologist Dr. Galeano in 1 week and she agrees to follow-up with appointment as today's weakness as today is reaching Physical exam Gen: patient is a AAOx3, no distress CVS: S1-S2, RRR, no murmur Lungs: B/L CTA, no wheezing Abdomen: soft, no distention, no tenderness, positive bowel sounds Extremity: no leg edema or induration Time spent more than 35 minutes Patient Condition at Discharge: Good Plan - Discharge Summary Discharge Rx Participant: No New Discharge Prescriptions: New Divalproex Sodium [Depakote] 1,000 mg PO BID #60 tab Lacosamide [Vimpat] 150 mg PO TID #90 tab cefUROXime axetiL [Ceftin] 500 mg PO BID 3 Days #6 tab Continue HYDROcodone/APAP 7.5-325MG [[place] 7.5-325] 1 tab PO TID PRN PRN Reason: pain Atorvastatin Calcium [Lipitor] 40 mg PO HS Acetaminophen Tab [Tylenol] 500 mg PO Q8H PRN PRN Reason: Pain Aspirin EC [Ecotrin Low Dose] 81 mg PO DAILY hydrOXYzine HCL [Atarax] 25 mg PO DAILY PRN PRN Reason: Anxiety Ondansetron [Zofran] 4 mg PO TID PRN PRN Reason: Nausea Lacosamide [Vimpat] 150 mg PO TID #90 tab Discontinued Divalproex Sodium 750 mg PO BID@0800,1999 Discharge Medication List Acetaminophen Tab [Tylenol] 500 mg PO Q8H PRN 01/17/23 [History] Aspirin EC [Ecotrin Low Dose] 81 mg PO DAILY 05/25/23 [History] Atorvastatin Calcium [Lipitor] 40 mg PO HS 05/25/23 [History] HYDROcodone/APAP 7.5-325MG [[place] 7.5-325] 1 tab PO TID PRN 05/25/23 [History] Ondansetron [Zofran] 4 mg PO TID PRN 05/25/23 [History] hydrOXYzine HCL [Atarax] 25 mg PO DAILY PRN 05/25/23 [History] Divalproex Sodium [Depakote] 1,000 mg PO BID #60 tab 05/29/23 [Rx] Lacosamide [Vimpat] 150 mg PO TID #90 tab 05/29/23 [Rx] Lacosamide [Vimpat] 150 mg PO TID #90 tab 05/29/23 [Rx] cefUROXime axetiL [Ceftin] 500 mg PO BID 3 Days #6 tab 05/29/23 [Rx] Follow up Appointment(s)/Referral(s): [facility], [NON-STAFF] - 1 Week Brant Galeano MD [STAFF PHYSICIAN] - 1 Week (Call office during business hours to make appointment.) Pauline Saucedo [Primary Care Provider] - 1-2 days (Call during business hours to make appointment.) Patient Instructions/Handouts: Seizure/Epilepsy Discharge Instructions & Follow-Up, Probiotic (By mouth), Urinary Tract Infection in Women (ED), Heart Healthy Diet (ED), Stress (ED), Epilepsy (ED), Nonepileptic Seizures (ED), Recurrent Seizures in Adults (ED) Activity/Diet/Wound Care/Special Instructions: heart healthy diet activity is restricted till you see your doctor Discharge/Stand Alone Forms: Community Resources Discharge Disposition: HOME SELF-CARE
== END 2023-05-29 19:07 | disposition home or self-care (01) | DRG 53 ==
LOC: EC 17:38 → 3SCARD 20:08 → 2SICU 05-26 01:01 → OBSVTOIN 05-26 06:51
PROVIDERS: ADMIT Hospitalist; ATTEND Hospitalist
PROC: 0BH17EZ Insertion of Endotracheal Airway into Trachea, Via Natural or Artificial Opening (ICD-10-PCS; principal; 2023-05-26)
PROC: 5A1935Z Respiratory Ventilation, Less than 24 Consecutive Hours (ICD-10-PCS; 2023-05-26)
DX: G40.401 Other generalized epilepsy and epileptic syndromes, not intractable, with status epilepticus (principal); G92.8 Other toxic encephalopathy; D64.9 Anemia, unspecified; F32.A Depression, unspecified; F41.9 Anxiety disorder, unspecified; G89.29 Other chronic pain; E78.5 Hyperlipidemia, unspecified; T42.4X5A Adverse effect of benzodiazepines, initial encounter; Z79.82 Long term (current) use of aspirin; Z79.899 Other long term (current) drug therapy; Z86.14 Personal history of Methicillin resistant Staphylococcus aureus infection; Z86.73 Personal history of transient ischemic attack (TIA), and cerebral infarction without residual deficits; Z98.84 Bariatric surgery status; Z88.8 Allergy status to other drugs, medicaments and biological substances
CPT/HCPCS: 36415; 36600; 70450; 71045; 76770; 80048; 80053; 80164; 80306; 81001; 82805; 83605; 83735; 84132; 84146; 85025; 85027; 87070; 87077; 87086; 87186; 87205; 93005; 94002; 94003; 95822; 96361; 96374; 99285

== ENCOUNTER 2023-12-26 13:19 | Inpatient (IN) | payer OTHER ==
[2023-12-26] MEDS: LORazepam 2 MG/ML INJ IV STA ×2 (13:26→13:37)
[2023-12-26 13:29] LABS: Glucose,Whole Blood 90 mg/dL (70-110)
--- NOTE | 2023-12-26 13:34 | ED ---
General Adult HPI - General Chief complaint: Seizure Stated complaint: Seziure Time Seen by Provider: 12/26/23 13:23 Source: family, RN notes reviewed Mode of arrival: wheelchair Limitations: altered mental status - History of Present Illness Initial comments: Patient is a 48-year-old female presenting to the emergency department with concern for seizure. Patient does have history of seizure disorder and is reportedly out of her Depakote. Patient reportedly had a couple short seizures in route and nursing staff reports patient had a couple short seizures here and is given Ativan with improvement. - Related Data Home Medications Medication Instructions Recorded Confirmed HYDROcodone/APAP 7.5-325MG [[place] 1 tab PO BID PRN 05/25/23 12/26/23 7.5-325] hydrOXYzine HCL [Atarax] 25 mg PO QID PRN 05/25/23 12/26/23 traZODone HCL [Desyrel] 50 - 100 mg PO HS PRN 12/26/23 12/26/23 Previous Rx's Medication Instructions Recorded Divalproex Sodium [Depakote] 1,000 mg PO BID #60 tab 05/29/23 Lacosamide [Vimpat] 150 mg PO TID #90 tab 05/29/23 Allergies Allergy/AdvReac Type Severity Reaction Status Date / Time aspirin AdvReac see comment Verified 12/26/23 14:35 ibuprofen [From Motrin] AdvReac see comment Verified 12/26/23 14:35 levetiracetam [From Keppra] AdvReac Seizures Verified 12/26/23 14:35 Review of Systems ROS Statement: Those systems with pertinent positive or pertinent negative responses have been documented in the HPI. ROS Other: All systems not noted in ROS Statement are negative. Limitations: ROS unobtainable due to patients medical condition Past Medical History Past Medical History: GERD/Reflux, Seizure Disorder Additional Past Medical History / Comment(s): Hx of migraines, elevated HR, one seizure/unknown cause 2016; "Severe reflux, awakening in noc w/ choking since gastric sleeve surgery." History of Any Multi-Drug Resistant Organisms: MRSA Date of last positivie culture/infection: 08/30/20 MDRO Source:: Right Thigh Past Surgical History: Bariatric Surgery, Cholecystectomy, Orthopedic Surgery Additional Past Surgical History / Comment(s): lap band 2009, gastic sleeve 04/03; EGD; IVF; metatarsus abduction/age 6; Past Anesthesia/Blood Transfusion Reactions: No Reported Reaction, Motion S ickness, Postoperative Nausea & Vomiting (PONV) Additional Past Anesthesia/Blood Transfusion Reaction / Comment(s): no hx of blood transfusion Past Psychological History: Anxiety, Depression Smoking Status: Never smoker Past Alcohol Use History: None Reported Past Drug Use History: None Reported - Past Family History Mother Family Medical History: Cancer, Hypertension Additional Family Medical History / Comment(s): Breast CA Brother(s) Family Medical History: No Reported History Father History Unknown: Yes Additional Family Medical History / Comment(s): father of suicide . General Exam Limitations: altered mental status General appearance: other (Patient is postictal and does not follow command) Head exam: Present: atraumatic, normocephalic Eye exam: Present: normal appearance, PERRL ENT exam: Present: normal oropharynx Neck exam: Present: normal inspection. Absent: tenderness, meningismus Respiratory exam: Present: normal lung sounds bilaterally Cardiovascular Exam: Present: regular rate, normal rhythm GI/Abdominal exam: Present: soft. Absent: tenderness Extremities exam: Present: normal inspection, full ROM. Absent: tenderness Neurological exam: Present: altered. Absent: motor sensory deficit (Exam is limited) Expanded Neurological exam: Present: protecting the airway Eye Response: (1) no response Motor Response: (4) withdraws to pain Verbal Response: (1) no verbal response Psychiatric exam: Present: other (Limited evaluation) Skin exam: Present: other Course Vital Signs 12/26/23 12/26/23 12/26/23 13:20 13:37 13:47 Pulse Rate 108 H 76 Respiratory 14 16 18 Rate Blood Pressure 112/101 118/75 106/63 O2 Sat by Pulse 97 98 Oximetry 12/26/23 15:15 Pulse Rate 58 L Respiratory 10 L Rate Blood Pressure 98/48 O2 Sat by Pulse 97 Oximetry EKG Findings - EKG Results: EKG: interpreted by ERMD, sinus rhythm, normal axis, normal QRS, normal ST/T Medical Decision Making - Medical Decision Making Was pt. sent in by a medical professional or institution (, PA, WATCH COMMANDER, urgent care, hospital, or fdc...) When possible be specific @ -No Did you speak to anyone other than the patient for history (EMS, parent, family, police, friend...)? What history was obtained from this source @ -Nurse provides history as obtained from family as patient has limited verbal capability. Family later arrives and provides additional history of no Depakote the last 2 days Did you review nursing and triage notes (agree or disagree)? Why? @ -I reviewed and agree with nursing and triage notes Were old charts reviewed (outside hosp., previous admission, EMS record, old EKG, old radiological studies, urgent care reports/EKG's, fdc records)? Report findings @ -No old charts were reviewed Differential Diagnosis (chest pain, altered mental status, abdominal pain women, abdominal pain men, vaginal bleeding, weakness, fever, dyspnea, syncope, headache, dizziness, GI bleed, back pain, seizure, CVA, palpatations, mental health, musculoskeletal)? @ -Differential Seizure: Recurrent seizure disorder, febrile seizure, alcohol withdrawal, stimulants, meningitis, encephalitis, intercranial hemorrhage, intracranial tumor, stroke, eclampsia, thyrotoxicosis, hypocalcemia, hyponatremia, hypernatremia, hypomagnesemia, psychogenic, this is not meant to be an all-inclusive list. EKG interpreted by me (3pts min.). @ -As above X-rays interpreted by me (1pt min.). @ -None done CT interpreted by me (1pt min.). @ -CT scan of the brain without acute abnormality U/S interpreted by me (1pt. min.). @ -None done What testing was considered but not performed or refused? (CT, X-rays, U/S, labs)? Why? @ -None What meds were considered but not given or refused? Why? @ -None Did you discuss the management of the patient with other professionals (professionals i.e. DrJanet, PA, WATCH COMMANDER, lab, RT, psych nurse, social work professor, riveter pneumatic, teacher, photographic intelligence officer, residential case manager)? Give summary @ -Case discussed with Dr. Montejo who will admit covering Dr. Wong. Case also discussed with neurology Dr. Valdez as well as critical care Dr. Plummer Was smoking cessation discussed for >3mins.? @ -No Was critical care preformed (if so, how long)? @ -No Were there social determinants of health that impacted care today? How? (Homelessness, low income, unemployed, alcoholism, drug addiction, transportation, low edu. Level, literacy, decrease access to med. care, senior living, rehab)? @ -No Was there de-escalation of care discussed even if they declined (Discuss DNR or withdrawal of care, Hospice)? DNR status @ -No What co-morbidities impacted this encounter? (DM, HTN, Smoking, COPD, CAD, Cancer, CVA, ARF, Chemo, Hep., AIDS, mental health diagnosis, sleep apnea, morbid obesity)? @ -History of seizure as well as off medication for 2 days Was patient admitted / discharged? Hospital course, mention meds given and route, prescriptions, significant lab abnormalities, going to OR and other pertinent info. @ -Patient presents with generalized seizures and does sees in the emergency department. Patient is postictal. Evaluation otherwise unremarkable except for Depakote level being low. This has been replaced. Patient will be admitted with neurology consult. [place] orders written Undiagnosed new problem with uncertain prognosis? @ -No Drug Therapy requiring intensive monitoring for toxicity (Heparin, Nitro, Insulin, Cardizem)? @ -Depacon IV Were any procedures done? @ -No Diagnosis/symptom? @ -Recurrent seizure Acute, or Chronic, or Acute on Chronic? @ -Acute Uncomplicated (without systemic symptoms) or Complicated (systemic symptoms)? @ -Complicated with being off medication recently Side effects of treatment? @ -No Exacerbation, Progression, or Severe Exacerbation? @ -No Poses a threat to life or bodily function? How? (Chest pain, [place], MA, pneumonia, PE, COPD, DKA, ARF, appy, cholecystitis, CVA, Diverticulitis, Homicidal, Suicidal, threat to staff... and all critical care pts) @ -To neurological function - Lab Data Result diagrams: 12/26/23 13:32 12/26/23 13:32 Lab Results 12/26/23 12/26/23 12/26/23 Range/Units 13:26 13:32 13:32 WBC 4.5 (3.8-10.6) k/uL RBC 3.76 L (3.80-5.40) m/uL Hgb 10.8 L (11.4-16.0) gm/dL Hct 34.3 (34.0-46.0) % MCV 91.0 (80.0-100.0) fL MCH 28.6 (25.0-35.0) pg MCHC 31.4 (31.0-37.0) g/dL RDW 15.6 H (11.5-15.5) % Plt Count 256 (150-450) k/uL MPV 7.0 Neutrophils % 48 % Lymphocytes % 43 % Monocytes % 5 % Eosinophils % 2 % Basophils % 0 % Neutrophils # 2.1 (1.3-7.7) k/uL Lymphocytes # 1.9 (1.0-4.8) k/uL Monocytes # 0.2 (0-1.0) k/uL Eosinophils # 0.1 (0-0.7) k/uL Basophils # 0.0 (0-0.2) k/uL Hypochromasia Slight Sodium 139 (137-145) mmol/L Potassium 4.5 (3.5-5.1) mmol/L Chloride 106 (98-107) mmol/L Carbon Dioxide 25 (22-30) mmol/L Anion Gap 8 mmol/L BUN 18 H (7-17) mg/dL Creatinine 0.93 (0.52-1.04) mg/dL Est GFR (CKD-EPI)AfAm 85 (>60 ml/min/1.73 sqM) Est GFR (CKD-EPI)NonAf 74 (>60 ml/min/1.73 sqM) Glucose 87 (74-99) mg/dL POC Glucose (mg/dL) 90 (70-110) mg/dL POC Glu Tug Boat Engineer ID [facility] Calcium 8.7 (8.4-10.2) mg/dL Magnesium 1.8 (1.6-2.3) mg/dL Total Bilirubin 0.3 (0.2-1.3) mg/dL AST 18 (14-36) U/L ALT 12 (4-34) U/L Alkaline Phosphatase 44 (38-126) U/L Total Protein 6.5 (6.3-8.2) g/dL Albumin 3.9 (3.5-5.0) g/dL Valproic Acid 21.0 ug/mL Serum Alcohol <10 mg/dL Disposition Clinical Impression: Recurrent seizures Disposition: ADMITTED IP TO THIS HOSP Is patient prescribed a controlled substance at d/c from ED?: No Referrals: Pauline Saucedo [Primary Care Provider] - 1-2 days Time of Disposition: 17:04
[2023-12-26 14:04] LABS: Basophils % (A) 0 %; Eosinophils # (A) 0.1 k/uL (0-0.7); Eosinophils % (A) 2 %; HCT 34.3 % (34.0-46.0); HGB 10.8 gm/dL (11.4-16.0); Hypochromasia Slight; Lymphocytes # (A) 1.9 k/uL (1.0-4.8); Lymphocytes % (A) 43 %; MCH 28.6 pg (25.0-35.0); MCHC 31.4 g/dL (31.0-37.0); Monocytes # (A) 0.2 k/uL (0-1.0); Monocytes % (A) 5 %; Neutrophils # (A) 2.1 k/uL (1.3-7.7); Neutrophils % (A) 48 %; Platelet Count 256 k/uL (150-450); RBC 3.76 m/uL (3.80-5.40); RDW 15.6 % (11.5-15.5); WBC 4.5 k/uL (3.8-10.6)
[2023-12-26 14:22] LABS: ALT 12 U/L (4-34); AST 18 U/L (14-36); African American GFR (CKD) 85 (>60 ml/min/1.73 sqM); Albumin 3.9 g/dL (3.5-5.0); Alcohol <10 mg/dL; Alkaline Phosphatase 44 U/L (38-126); Anion Gap 8 mmol/L; Blood Urea Nitrogen 18 mg/dL (7-17); Calcium 8.7 mg/dL (8.4-10.2); Carbon Dioxide 25 mmol/L (22-30); Chloride 106 mmol/L (98-107); Glucose 87 mg/dL (74-99); Magnesium 1.8 mg/dL (1.6-2.3); Non-African American GFR(CKD) 74 (>60 ml/min/1.73 sqM); Potassium 4.5 mmol/L (3.5-5.1); Sodium 139 mmol/L (137-145); Total Bilirubin 0.3 mg/dL (0.2-1.3); Total Protein 6.5 g/dL (6.3-8.2)
--- NOTE | 2023-12-26 14:59 | CT ---
EXAMINATION TYPE: CT brain wo con DATE OF EXAM: 12/26/2023 2:36 PM COMPARISON: 05/25/2023. CLINICAL INDICATION: Female, 48 years old with history of HI, SZ, SEIZURE TODAY/ RAN OUT OF HER MEDIC ATION TECHNIQUE: Brain: Axial CT images of the brain were obtained with coronal and sagittal reformats created and rev iewed. Contrast used: None. Oral contrast used: None. CT DLP: 1105.8 mGycm, Automated exposure control for dose reduction was used. FINDINGS: Brain: Extra-axial spaces: No abnormal extra-axial fluid collections. Ventricular system: Within normal limits Cerebral parenchyma: No acute intraparenchymal hemorrhage or mass effect. The bocanegra-white junction is well differentiated. Cerebellum: Unremarkable. Mass effect: No evidence of midline shift. Intracranial vasculature: unremarkable Soft tissues: Normal. Calvarium/osseous structures: No depressed skull fracture. Paranasal sinuses and mastoid air cells: Mild scattered paranasal sinus disease. Visualized orbits: Orbital contents are intact. IMPRESSION: No acute intracranial process. [facility], , 12/26/2023 2:57 PM
[2023-12-26] MEDS: levETIRAcetam IV 500 MG/5 ML VIAL IVP SCH (15:46)
[2023-12-26] MEDS: VALPROATE SODIUM 500 MG in SODIUM CHLORIDE 0.9% 100 ML IVPB STA (16:19)
[2023-12-26] MEDS ORDERED: NALOXONE 0.4 MG/ML 1 ML VIAL IV PRN (17:05)
[2023-12-26] MEDS: SODIUM CHLORIDE 0.9% 1,000 ML IV SCH (17:39)
[2023-12-26 18:27] LABS: Glucose,Whole Blood 80 mg/dL (70-110)
--- NOTE | 2023-12-26 20:47 | XR ---
EXAMINATION TYPE: XR chest 1V portable DATE OF EXAM: 12/26/2023 7:28 PM COMPARISON: None. CLINICAL INDICATION: Female, 48 years old with history of CHF, TECHNIQUE: XR chest 1V portable view(s) obtained. FINDINGS: The heart size is normal. The pulmonary vasculature is normal. The lungs are clear. IMPRESSION: 1. No acute pulmonary process. [facility], , 12/26/2023 8:45 PM
[2023-12-26] MEDS: DIVALPROEX 500 MG TABLET.DR PO SCH (20:58)
[2023-12-26] MEDS: HYDROcodone/APAP 7.5-325MG 1 EACH TAB PO PRN (20:59)
[2023-12-26] MEDS: LACOSAMIDE 150 MG TABLET PO SCH (21:31)
--- NOTE | 2023-12-26 22:03 | HP ---
HISTORY AND PHYSICAL CHIEF COMPLAINT: Seizure disorder. HISTORY OF PRESENT ILLNESS: This is a 48-year-old woman with a past medical history of multiple medical problems, was taking Neurontin from Dr. Galeano's office. The patient ran out of medications. The patient developed recurrent seizures. The patient also hit the head on the left side and the family is also worried about cerebral concussion. The patient is mildly confused. No chest pain. No palpitation. The patient had multiple seizures also. PAST MEDICAL HISTORY: Reviewed include GERD, seizure disorder. HOME MEDICATIONS: Reviewed include Desyrel, trazodone, dose and rest of medications reviewed. ALLERGIES: Asthma. Rest of allergies reviewed. FAMILY HISTORY: Could not be taken because of the patient's change in mental status. SOCIAL HISTORY: Could not be taken because of the patient's change in mental status. REVIEW OF SYSTEMS: Could not be taken because of the patient's change in mental status. PHYSICAL EXAMINATION: VITAL SIGNS: Pulse is 58, blood pressure 98/40, respirations 10. HEENT: Conjunctivae normal. CARDIOVASCULAR: S1, S2. RESPIRATIONS: Breath sounds diminished at the bases. A few scattered rhonchi. ABDOMEN: Soft. NERVOUS SYSTEM: Nonfocal. LABORATORY DATA: Reviewed. ASSESSMENT: 1. Acute seizure disorder with breakthrough seizures. 2. Change in mental status, metabolic encephalopathy, rule out cerebral concussion. 3. Gastroesophageal reflux disease. 4. History of migraines. 5. History of gastric sleeve surgery. 6. Anxiety, depression. RECOMMENDATIONS: Recommend to continue current management and continue symptomatic treatment. Otherwise, at this time, I recommend IV Keppra and continue with current medications. Neurology consultation. Guarded prognosis because of multiple complex medical issues. Further recommendations to follow. See orders for further details. MMODL / IJN: [id number] /
[2023-12-27 06:31] LABS: Basophils % (A) 1 %; Eosinophils # (A) 0.1 k/uL (0-0.7); Eosinophils % (A) 3 %; HCT 33.1 % (34.0-46.0); HGB 10.4 gm/dL (11.4-16.0); Hypochromasia Moderate; Lymphocytes % (A) 56 %; MCHC 31.3 g/dL (31.0-37.0); MCV 92.6 fL (80.0-100.0); Mean Platelet Volume 7.3; Monocytes # (A) 0.1 k/uL (0-1.0); Monocytes % (A) 4 %; Neutrophils # (A) 1.2 k/uL (1.3-7.7); Neutrophils % (A) 35 %; Platelet Count 216 k/uL (150-450); RBC 3.57 m/uL (3.80-5.40); RDW 15.4 % (11.5-15.5); WBC 3.5 k/uL (3.8-10.6)
[2023-12-27 06:51] LABS: African American GFR (CKD) >90 (>60 ml/min/1.73 sqM); Anion Gap 0 mmol/L; Blood Urea Nitrogen 16 mg/dL (7-17); Carbon Dioxide 27 mmol/L (22-30); Chloride 110 mmol/L (98-107); Glucose 77 mg/dL (74-99); Non-African American GFR(CKD) 80 (>60 ml/min/1.73 sqM); Sodium 137 mmol/L (137-145)
[2023-12-27 08:58] LABS: Glucose,Whole Blood 72 mg/dL (70-110)
[2023-12-27] MEDS: HYDROcodone/APAP 7.5-325MG 1 EACH TAB PO PRN (11:24)
--- NOTE | 2023-12-27 12:12 | P.CNPUL ---
History of Present Illness Consult date: 12/27/23 Requesting physician: Donald Louis Reason for consult: other (ICU management/acute seizure with postictal phase) Chief complaint: Recurrent seizures History of present illness: This is a 48-year-old female with history of seizure disorder for the last 2 years, patient is maintained on seizure medications, however the patient ran out of her seizure meds, and she went on to develop recurrent seizures. Patient is normally on Depakote, and she follows up with Dr. Cervantes/neurologist. Patient had couple of short seizures en route to the hospital, and she had couple more seizures while in the ER. Patient received Ativan with improvement and she was also placed on Depakote and on Vimpat. Considering her postictal phase and recurrent seizures I was notified about this patient from the ER physician/Dr. Holt, and I admitted the patient to the ICU. No seizures overnight. Patient seems to be doing quite well today. Not in any distress. CT brain was unremarkable. Chest x-ray showed no evidence of pneumonia and no acute process. Labs today showed relatively normal CBC hemoglobin is 10.4 relatively normal electrolytes and normal renal profile. Valproic acid level yesterday was 21, s ubtherapeutic Review of Systems REVIEW OF SYSTEMS: CONSTITUTIONAL: Negative. EYES: Negative. ENT: Negative. CARDIAC: Negative. PULMONARY: As above. GI: Negative. GENITOURINARY: Negative. MUSCULOSKELETAL: Negative. SKIN: Negative. NEUROPSYCH: As noted in HPI ENDOCRINE: Negative. HEMATOLOGIC: Negative. Past Medical History Past Medical History: CVA/TIA, GERD/Reflux, Myocardial Infarction ([place]), Seizure Disorder Additional Past Medical History / Comment(s): Hx of migraines, elevated HR, one seizure/unknown cause 2016; "Severe reflux, awakening in noc w/ choking since gastric sleeve surgery, lower back pain from lifting handicap ; CVA August 2023; [place] - April or May 2023, was a [facility] Last Myocardial Infarction Date:: 04/29/2023 History of Any Multi-Drug Resistant Organisms: MRSA Date of last positivie culture/infection: 08/30/20 MDRO Source:: Right Thigh Past Surgical History: Bariatric Surgery, Cholecystectomy, Orthopedic Surgery Additional Past Surgical History / Comment(s): lap band 2009, gastic sleeve 03/17 9; EGD; IVF; metatarsus abduction/age 6; Past Anesthesia/Blood Transfusion Reactions: No Reported Reaction, Motion Sickness, Postoperative Nausea & Vomiting (PONV) Additional Past Anesthesia/Blood Transfusion Reaction / Comment(s): no hx of blood transfusion Smoking Status: Never smoker - Past Family History Mother Family Medical History: Cancer, Hypertension Additional Family Medical History / Comment(s): Breast CA Brother(s) Family Medical History: No Reported History Father History Unknown: Yes Additional Family Medical History / Comment(s): father of suicide . Medications and Allergies Home Medications Medication Instructions Recorded Confirmed Type HYDROcodone/APAP 7.5-325MG [[place] 1 tab PO BID PRN 05/25/23 12/26/23 History 7.5-325] hydrOXYzine HCL [Atarax] 25 mg PO QID PRN 05/25/23 12/26/23 History Divalproex Sodium [Depakote] 1,000 mg PO BID #60 tab 05/29/23 12/26/23 Rx Lacosamide [Vimpat] 150 mg PO TID #90 tab 05/29/23 12/26/23 Rx traZODone HCL [Desyrel] 50 - 100 mg PO HS PRN 12/26/23 12/26/23 History Allergies Allergy/AdvReac Type Severity Reaction Status Date / Time aspirin AdvReac see comment Verified 12/26/23 14:35 ibuprofen [From Motrin] AdvReac see comment Verified 12/26/23 14:35 levetiracetam [From Keppra] AdvReac Seizures Verified 12/26/23 14:35 Physical Exam Vitals: Vital Signs Temp Pulse Resp BP Pulse Ox 12/27/23 11:00 57 L 14 98 12/27/23 10:00 64 25 H 114/67 96 12/27/23 09:00 97.9 F 55 L 15 117/64 12/27/23 08:00 49 L 15 100/56 98 12/27/23 07:00 51 L 12 121/61 96 12/27/23 06:00 55 L 13 112/60 98 12/27/23 05:00 51 L 15 97/55 97 12/27/23 04:00 97.9 F 57 L 14 116/71 96 12/27/23 03:00 61 17 103/65 95 12/27/23 02:00 58 L 13 97/47 95 12/27/23 01:00 50 L 25 H 96/50 97 12/27/23 00:06 59 L 14 96/50 96 12/27/23 00:00 98 F 58 L 14 103/63 96 12/26/23 23:00 62 18 96/53 96 12/26/23 22:00 53 L 14 116/83 96 12/26/23 21:30 53 L 16 116/83 97 12/26/23 21:00 54 L 14 105/56 98 12/26/23 20:30 56 L 15 105/56 97 12/26/23 20:00 98.1 F 55 L 14 96/55 97 12/26/23 19:30 49 L 16 96/55 99 12/26/23 19:00 53 L 13 97 12/26/23 18:30 52 L 13 98 12/26/23 18:20 97.9 F 57 L 14 106/78 100 12/26/23 17:36 64 18 108/64 98 12/26/23 15:15 58 L 10 L 98/48 97 12/26/23 13:47 76 18 106/63 98 12/26/23 13:37 108 H 16 118/75 97 12/26/23 13:20 14 112/101 Intake and Output 12/26/23 12/27/23 12/27/23 22:59 06:59 14:59 Intake Total 720 960 480 Output Total 1000 400 Balance 720 -40 80 Intake: Intake, IV Titration 720 960 240 Amount Sodium Chloride 0.9% 1, 720 960 240 000 ml @ 120 mls/hr IV . Q8H20M [facility] Rx#:[id number] Oral 240 Output: Urine 1000 400 Other: Voiding Method Bedside Commode Bedside Commode Bedside Commode External Catheter External Catheter # Voids 0 0 Weight 86.183 kg 82.3 kg General: Revealed 48-year-old female in no distress Skin: Skin is warm and dry and no rashes or lesions are noted. Eye: Pupils are equal, round and reactive to light, extra-ocular movements are intact; there is normal conjunctiva bilaterally. Ears, nose, mouth and throat: There are moist mucous membranes and no oral lesions. Neck: The neck is supple, there is no tenderness or JVD. Cardiovascular: There is a regular rate and rhythm. No murmur, rub or gallop is appreciated. Respiratory: Clear bilaterally no crackles rhonchi or wheezes Gastrointestinal: Soft, non-distended, non-tender abdomen without masses or organomegaly noted. There is no rebound or guarding present. Bowel sounds are unremarkable. Back: There is no tenderness to palpation in the midline. There is no obvious deformity. Musculoskeletal: Normal ROM, no tenderness, There is no pedal edema. There is no calf tenderness or swelling. No cords were appreciated. Neurological: CN II-XII intact, Cranial nerves III through XII are intact. There are no obvious motor or sensory deficits. Coordination appears grossly intact. Speech is normal. Psychiatric: Cooperative, appropriate mood & affect, normal judgment. Results - Laboratory Findings CBC and BMP: 12/27/23 06:11 12/27/23 06:11 Abnormal lab findings: Abnormal Labs 12/26/23 12/26/23 12/27/23 13:32 13:32 06:11 WBC 3.5 L RBC 3.76 L 3.57 L Hgb 10.8 L 10.4 L Hct 33.1 L RDW 15.6 H Neutrophils # 1.2 L Chloride BUN 18 H Calcium 12/27/23 06:11 WBC RBC Hgb Hct RDW Neutrophils # Chloride 110 H BUN Calcium 8.0 L - Diagnostic Findings Chest x-ray: image reviewed (As noted in HPI) Additional studies: CT brain as noted in HPI, normal Assessment and Plan Assessment: Impression: Breakthrough seizures, mostly because of noncompliance, patient ran out of her medications. History of seizure disorder History of GERD without esophagitis History of migraine cephalgia History of depression and anxiety Chronic pain syndrome Recommendation: Continue present seizure medications Patient to be seen by neurology today on consultation Continue seizure precautions Transfer patient out of the ICU to medical surgical floor Neurology consultation is pending Will continue to follow while in ICU Time with Patient: Greater than 30
[2023-12-27] MEDS: ONDANSETRON 4 MG/2 ML VIAL IVP PRN (12:35)
[2023-12-27] MEDS: LORazepam 2 MG/ML INJ IV PRN (15:31)
[2023-12-27] MEDS: MECLIZINE 12.5 MG TAB PO SCH (15:58)
[2023-12-27 16:05] LABS: Valproic Acid (Depakene) 72.4 ug/mL
[2023-12-27] MEDS: HYDROcodone/APAP 10-325MG 1 EACH TAB PO PRN (17:35)
[2023-12-27] MEDS ORDERED: LORazepam 2 MG/ML INJ IV PRN (19:02)
[2023-12-27] MEDS: traZODone HCL 50 MG TAB PO PRN (21:30)
[2023-12-28] MEDS: OXcarbazepine 150 MG TAB PO SCH (01:00)
--- NOTE | 2023-12-28 05:06 | EEG ---
ELECTROENCEPHALOGRAM REPORT PREAMBLE: This is a 48-year-old female with recurrent seizures. CURRENT MEDICATIONS: 1. Depakote. 2. [place]. 3. Vimpat. 4. Ativan. 5. Antivert. EEG FINDINGS: This is a 21-channel digital EEG recorded with video component, utilizing 10/20 international system with referential and bipolar montages. The recording starts with the presence of somewhat disorganized background, consists of mixed frequencies of some mixed theta and alpha frequency activity in bihemispheric region. Background does not seem to be clearly reactive to eye opening or closing. Some frontal intermittent rhythmic delta activity was seen. Shortly after the middle part of the recording, electrographic seizure was recorded, started with some focal sharp waves involving the left temporal region and involving 2 high-amplitude rhythmic delta activity over the left hemispheric region. Clinically, the patient had rhythmic jerking of the body and turned her body somewhat to the left side. The seizure lasted for 7 minutes until 1 mg Ativan aborted the seizure. Postictally some left focal slowing was seen for a variable period of time. Different stages of sleep were not seen. Photic stimulation and hyperventilation were not performed. IMPRESSION: 1. Abnormal EEG due to recording of an electrographic seizure, started with focal sharp waves involving the left temporal region, involving 2 high-amplitude rhythmic delta over the left temporal region, that lasted for 7 minutes, aborted with 1 mg of Ativan. This is suggestive of focal irritative lesion with tendency for focal onset seizure. 2. Intermittent left temporal slowing, may suggest underlying focal cortical neuronal dysfunction. 3. The presence of frontal intermittent rhythmic delta activity may suggest underlying encephalopathy or convulsive tendency. Followup EEG recommended as clinically indicated. MMODL / IJN: [id number] / [facility]
--- NOTE | 2023-12-28 08:38 | P.CNNES ---
History of Present Illness Consult date: 12/27/23 Requesting physician: Donald Louis Reason for Consult: Seizure History of Present Illness: Patient is a 48-year-old right-handed female who has developed seizure disorder since last 2 years, after she received a COVID and a flu shot, who has history of came to the hospital yesterday at 1:19 PM for breakthrough seizures. Patient's was also present, who provided with a history. The patient never had any history of seizures until 2 years ago, shortly after she received COVID and the flu shot she started having seizures. Patient's seizures are about once every 2 to 3 weeks she is having a seizure. Sometimes he would come home and she is laying on the floor facedown. Sometimes she is on the floor, drooled wet 3 days ago. Patient was doing relatively better in the last couple weeks, but yesterday she had bad seizures. He mentions that patient had ran out of her Depakote and missed 4 doses before she started having this increased frequency of seizures. She received her last 500 mg tablet of Depakote on Tuesday morning, did not take it Tuesday night, hold Tuesday and the Tuesday morning and had seizure Tuesday morning. She had seizures about 8-9 in a row. 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 The seizure lasted for about 4 to 5 minutes each. Patient was given Keppra 1000 mg IV in the ER. Patient has developed headache, which she usually gets after Keppra. Patient has been states that she had 3 seizures this morning while in the ICU. She is having a pounding headache now, complains of having photophobia, phonophobia, with nausea and occasional vomiting. She rates her headache 10/10, at this time at 11:30 AM. Patient's also mentions that in April 2023 she had an MRI and also had what sounds like cardiac arrest. She recovered well. Vital signs on arrival blood pressure 112/101, repeat blood pressure 118/75, pulse rate 108. Temperature is 97.9. Blood test shows normal CBC with slight anemia hemoglobin 10.8. CMP is normal. Depakote level 21 which is low, blood alcohol level negative less than 10. EKG showed sinus rhythm. CT head revealed no acute intracranial process. Chest x-ray revealed no acute pulmonary process. Patient has been seen by Dr. Nieves numerous times, and I had follow-ups performed in the past. Last time was on 05/29/2023 her previous EEG revealed severe encephalopathy but no seizures. Current medications clued [place], hydroxyzine, Depakote 1000 mg twice daily, Vimpat 150 mg 3 times daily and trazodone 50 to 100 mg at bedtime as needed. Patient denies any tobacco use, any alcohol. Occasional uses marijuana. Review of Systems All pertinent positive and negative review of systems mentioned in the HPI. Patient appears quite sick. Past Medical History Past Medical History: CVA/TIA, GERD/Reflux, Myocardial Infarction ([place]), Seizure Disorder Additional Past Medical History / Comment(s): Hx of migraines, elevated HR, one seizure/unknown cause 2016; "Severe reflux, awakening in noc w/ choking since gastric sleeve surgery, lower back pain from lifting handicap ; CVA August 2023; [place] - April or May 2023, was a [facility] Last Myocardial Infarction Date:: 04/29/2023 History of Any Multi-Drug Resistant Organisms: MRSA Date of last positivie culture/infection: 08/30/20 MDRO Source:: Right Thigh Past Surgical History: Bariatric Surgery, Cholecystectomy, Orthopedic Surgery Additional Past Surgical History / Comment(s): lap band 2009, gastic sleeve 04/03; EGD; IVF; metatarsus abduction/age 6; Past Anesthesia/Blood Transfusion Reactions: No Reported Reaction, Motion Sickness, Postoperative Nausea & Vomiting (PONV) Additional Past Anesthesia/Blood Transfusion Reaction / Comment(s): no hx of blood transfusion Smoking Status: Never smoker - Past Family History Mother Family Medical History: Cancer, Hypertension Additional Family Medical History / Comment(s): Breast CA Brother(s) Family Medical History: No Reported History Father History Unknown: Yes Additional Family Medical History / Comment(s): father of suicide . Medications and Allergies Home Medications Medication Instructions Recorded Confirmed Type HYDROcodone/APAP 7.5-325MG [[place] 1 tab PO BID PRN 05/25/23 12/26/23 History 7.5-325] hydrOXYzine HCL [Atarax] 25 mg PO QID PRN 05/25/23 12/26/23 History Divalproex Sodium [Depakote] 1,000 mg PO BID #60 tab 05/29/23 12/26/23 Rx Lacosamide [Vimpat] 150 mg PO TID #90 tab 05/29/23 12/26/23 Rx traZODone HCL [Desyrel] 50 - 100 mg PO HS PRN 12/26/23 12/26/23 History Allergies Allergy/AdvReac Type Severity Reaction Status Date / Time aspirin AdvReac see comment Verified 12/26/23 14:35 ibuprofen [From Motrin] AdvReac see comment Verified 12/26/23 14:35 levetiracetam [From Keppra] AdvReac Seizures Verified 12/26/23 14:35 Physical Examination - Vital Signs Vital Signs: Vital Signs Temp Pulse Resp BP Pulse Ox 12/27/23 11:00 57 L 14 98 12/27/23 10:00 64 25 H 114/67 96 12/27/23 09:00 97.9 F 55 L 15 117/64 12/27/23 08:00 49 L 15 100/56 98 12/27/23 07:00 51 L 12 121/61 96 12/27/23 06:00 55 L 13 112/60 98 12/27/23 05:00 51 L 15 97/55 97 12/27/23 04:00 97.9 F 57 L 14 116/71 96 12/27/23 03:00 61 17 103/65 95 12/27/23 02:00 58 L 13 97/47 95 12/27/23 01:00 50 L 25 H 96/50 97 12/27/23 00:06 59 L 14 96/50 96 12/27/23 00:00 98 F 58 L 14 103/63 96 12/26/23 23:00 62 18 96/53 96 12/26/23 22:00 53 L 14 116/83 96 12/26/23 21:30 53 L 16 116/83 97 12/26/23 21:00 54 L 14 105/56 98 12/26/23 20:30 56 L 15 105/56 97 12/26/23 20:00 98.1 F 55 L 14 96/55 97 12/26/23 19:30 49 L 16 96/55 99 12/26/23 19:00 53 L 13 97 12/26/23 18:30 52 L 13 98 12/26/23 18:20 97.9 F 57 L 14 106/78 100 12/26/23 17:36 64 18 108/64 98 12/26/23 15:15 58 L 10 L 98/48 97 12/26/23 13:47 76 18 106/63 98 12/26/23 13:37 108 H 16 118/75 97 12/26/23 13:20 14 112/101 Intake and Output 12/26/23 12/27/23 12/27/23 22:59 06:59 14:59 Intake Total 720 960 480 Output Total 1000 400 Balance 720 -40 80 Intake: Intake, IV Titration 720 960 240 Amount Sodium Chloride 0.9% 1, 720 960 240 000 ml @ 120 mls/hr IV . Q8H20M [facility] Rx#:[id number] Oral 240 Output: Urine 1000 400 Other: Voiding Method Bedside Commode Bedside Commode Bedside Commode External Catheter External Catheter # Voids 0 0 Weight 86.183 kg 82.3 kg Patient is a middle aged female, who is laying in the bed, appears to be in distress from the headache. Patient is somewhat encephalopathic, groggy from medications. Speech and language functions are normal. Patient can name and repeat very well. No aphasia or dysarthria. Attention, concentration is diminished and fund of knowledge is difficult to assess at this time because of her mentation. On cranial nerve examination, pupils are equal, round and reacting to light, visual coon are full on confrontation, with no neglect on double simultaneous stimulation. Extraocular muscles are intact with no nystagmus. Face is symmetric, tongue protrudes to the midline. Palatal elevation and sensation normal, hearing and shoulder shrug normal, facial sensation normal. No evidence of tongue bite krissy. On muscle strength testing, there is no pronator drift and the strength is norm al in arms and legs distally and proximally. Deep tendon reflexes are symmetric, hypoactive and plantars are flat bilaterally. Sensory to touch is equal with no neglect on double simultaneous stimulation. Cerebellar function showed no ataxia for [id number]-lq-[id number] testing. No dysdiadochokinesia. No ataxia for tqhi-se-hjbr testing on either side. Tone and bulk of muscles normal. Patient has significant myoclonic jerks of outstretched hands. Gait deferred.. On general examination, there is no carotid bruit or murmur, S1-S2 audible. Chest is clear on consultation. Abdomen is soft nontender. No organomegaly, bowel sounds present. Peripheral pulses are present. No peripheral edema. Results - Laboratory Findings CBC and BMP: 12/27/23 06:11 12/27/23 06:11 Abnormal Lab Findings: Abnormal Labs 12/26/23 12/26/23 12/27/23 13:32 13:32 06:11 WBC 3.5 L RBC 3.76 L 3.57 L Hgb 10.8 L 10.4 L Hct 33.1 L RDW 15.6 H Neutrophils # 1.2 L Chloride BUN 18 H Calcium 12/27/23 06:11 WBC RBC Hgb Hct RDW Neutrophils # Chloride 110 H BUN Calcium 8.0 L Assessment and Plan Assessment: * Seizure disorder, came with status epilepticus. Patient apparently had ran out of her Depakote and missed 4 doses before she had recurrent seizures. * Seizure disorder, for last 2 years since she received flu and COVID shots. * Metabolic encephalopathy with evidence of myoclonic jerks * History of gastric bypass 2018 * Depression, anxiety * Marijuana use Plan: * Patient had been stable overnight. Patient was being considered for discharge, but had couple seizures recently. * Stat EEG was ordered. * Check stat Depakote level, and ammonia. * B12, folate * Patient has been resumed on her Depakote 1000 mg twice daily, and Vimpat 150 mg twice daily. * Patient has previously developed side effects from Keppra, therefore cannot be tried. She also had some side effects from Dilantin in the past as well. * Based upon the EEG results, will decide further management. * Neurology will follow. Thank you for the consult. Addendum: EEG was performed, which was abnormal EEG due to recording of an electrographic seizure, started with focal sharp waves involving the left temporal region and involving to high amplitude rhythmic delta over the left temporal region that lasted for 7 minutes, aborted with 1 mg of Ativan. This is suggestive of focal irritative lesion with tendency for focal onset seizure. There was also presence of frontal intermittent rhythmic delta activity, which may suggest underlying encephalopathy or convulsive tendency. Depakote level is 72.4, which is therapeutic. Ammonia is 67, likely related to use of Depakote. We may have to taper off Depakote. Patient has never tried Lamictal or Trileptal. We will start her on Trileptal 150 mg twice daily. If tolerated, may go up to 300 mg twice daily soon. Need to watch for any rash. If any rash develops, may have to stop Trileptal. Her sodium is normal. We will follow. Time with Patient: Greater than 30
--- NOTE | 2023-12-28 08:40 | P.PN ---
Subjective Progress Note Date: 12/27/23 This is a pleasant 48-year-old female who was recently admitted for recurrent seizures with history of seizures. Patient follows with Dr. Galeano in the outpatient setting although reports running out of medications. Patient's family at the bedside as patient continues to report significant headache and dizziness and lightheadedness. Patient did strike her head and fall flat on her face when having a seizure prior to admission. Patient mentation is improved although patient is severely depressed. Patient with neurology following undergoing further workup. Will add meclizine and supportive care for the headache. Recommend increased activity as tolerated. Patient is a transfer out of the ICU once a bed becomes available. Review of systems: Constitutional: reports of fatigue, no fever, or chills Cardiovascular: No reports of chest pain or palpitations Respiratory: No reports of shortness of breath or cough GI: reports of occasional nausea, no reports of no diarrhea, not much of an august etite vomiting, : No reports of dysuria or retention Neurovascular: reports of generalized weakness, reports continued dizziness and lightheadedness with headache All medications have been reviewed Active Medications Acetaminophen/Codeine Phosphate (Acetaminophen-Codeine 300-30mg Tab) 1 each PO Q6HR PRN PRN Reason: Pain Hydrocodone Bitart/Acetaminophen (Hydrocodone/Apap 10-325mg 1 Each Tab) 1 each PO Q6HR PRN PRN Reason: Pain Last Admin: 12/28/23 08:17 Dose: 1 each Divalproex Sodium (Divalproex 500 Mg Tablet.) 1,000 mg PO BID [facility] Last Admin: 12/28/23 08:16 Dose: 1,000 mg Hydroxyzine HCl (Hydroxyzine Hcl 25 Mg Tab) 25 mg PO QID PRN PRN Reason: Anxiety Lacosamide (Lacosamide 150 Mg Tablet) 150 mg PO TID [facility] Last Admin: 12/28/23 08:16 Dose: 150 mg Lorazepam (Lorazepam 2 Mg/Ml Inj) 1 mg IV Q2H PRN PRN Reason: Seizures Meclizine HCl (Meclizine 12.5 Mg Tab) 12.5 mg PO TID [facility] Last Admin: 12/28/23 08:17 Dose: 12.5 mg Naloxone HCl (Naloxone 0.4 Mg/Ml 1 Ml Vial) 0.2 mg IV Q2M PRN PRN Reason: Opioid Reversal Ondansetron HCl (Ondansetron 4 Mg/2 Ml Vial) 4 mg IVP Q6HR PRN PRN Reason: Nausea And Vomiting Last Admin: 12/27/23 12:35 Dose: 4 mg Oxcarbazepine (Oxcarbazepine 150 Mg Tab) 150 mg PO BID [facility] Last Admin: 12/28/23 08:17 Dose: 150 mg Trazodone HCl (Trazodone Hcl 50 Mg Tab) 50 mg PO HS PRN PRN Reason: Insomnia Last Admin: 12/27/23 21:30 Dose: 50 mg PHYSICAL EXAMINATION: GENERAL: The patient is alert and oriented x4, Well developed, appears older than stated age, ill-appearing HEENT: Pupils are round and equally reacting to light. EOMI. no scleral icterus. No conjunctival pallor. Normocephalic, atraumatic. No pharyngeal erythema. No thyromegaly. CARDIOVASCULAR: S1 and S2 muffled PULMONARY: diminished breath sounds bilaterally with no wheezing or rhonchi noted. ABDOMEN: soft. Nontender on exam. obese. non-distended, normoactive bowel sounds. No palpable organomegaly. MUSCULOSKELETAL: No joint swelling or deformity. EXTREMITIES: No cyanosis, clubbing, or pedal edema. NEUROLOGICAL: Gross neurological examination did not reveal any focal deficits. Diffuse weakness SKIN: No rashes. Assessment: Acute seizure disorder with breakthrough seizures Change in mental status, metabolic encephalopathy, rule out cerebral concussion Gastroesophageal reflux disease History of migraines History of gastric sleeve surgery Anxiety and depression GI prophylaxis DVT prophylaxis Full code Plan: Recommend to continue with current medications and management with neurology following. Patient is a transfer out of the ICU once a bed becomes available. Continuing ongoing workup and patient is maintained on seizure medications. No further seizure activity noted although patient continues to report severe headache and dizziness and lightheadedness. Recommend PT/OT therapy evaluation and encouraged to increase activity as tolerated Encourage sitting up more frequently Continue supportive care with the headache Will discuss further with neurology regarding discharge planning Patient is severely depressed per nursing staff not reporting any suicidal ideations at this time. Psychiatry is consulted and pending Overall prognosis guarded The impression and plan of care has been dictated by Lisa Choudhury, nurse practitioner as directed. Dr. Heriberto MD I have performed a history and examination and MDM of this patient, discussed the same with the dictator, and agree with the dictator's assessment and plan as written ,documented as a scribe. Based on total visit time, I have performed more than 50% of the visit. Any additional findings or plans will be noted. Objective - Vital Signs Vital signs: Vital Signs Temp 97.9 F 12/28/23 08:00 Pulse 74 12/28/23 08:00 Resp 16 12/28/23 08:00 BP 118/96 12/28/23 08:00 Pulse Ox 98 12/28/23 08:00 FiO2 Intake & Output 12/27/23 12/28/23 12/28/23 18:59 06:59 18:59 Intake Total 480 540 Output Total 750 Balance -270 540 Weight 82.2 kg Intake: Intake, IV Titration 240 Amount Sodium Chloride 0.9% 1, 240 000 ml @ 120 mls/hr IV . Q8H20M [facility] Rx#:[id number] Oral 240 540 Output: Urine 750 Other: Voiding Method Bedside Commode Bedside Commode # Voids 1 0 - Labs CBC & Chem 7: 12/27/23 06:11 12/27/23 06:11 Labs: Abnormal Lab Results - Last 24 Hours (Table) 12/27/23 Range/Units 15:00 Ammonia 67 H (<30) umol/L
[2023-12-28] MEDS: LORazepam 2 MG/ML INJ IV PRN (12:04)
--- NOTE | 2023-12-28 12:40 | P.PN ---
Subjective Progress Note Date: 12/28/23 Principal diagnosis: Status epilepticus This is a 48-year-old female with history of seizure disorder for the last 2 years, patient is maintained on seizure medications, however the patient ran out of her seizure meds, and she went on to develop recurrent seizures. Patient is normally on Depakote, and she follows up with Dr. Cervantes/neurologist. Patient had couple of short seizures en route to the hospital, and she had couple more seizures while in the ER. Patient received Ativan with improvement and she was also placed on Depakote and on Vimpat. Considering her postictal phase and recurrent seizures I was notified about this patient from the ER physician/Dr. Holt, and I admitted the patient to the ICU. No seizures overnight. Patient seems to be doing quite well today. Not in any distress. CT brain was unremarkable. Chest x-ray showed no evidence of pneumonia and no acute process. Labs today showed relatively normal CBC hemoglobin is 10.4 relatively normal electrolytes and normal renal profile. Valproic acid level yesterday was 21, subtherapeutic Patient seen today on 12/28/2023, patient remains in the ICU as an overflow. No seizure activity in the last 24 hours, reviewed the results of her EEG, patient remains seizure-free, she is on Depakote and Vimpat. Being followed by neurology, her workup has been all noted including the EEG findings showing seizure focus. Plan is to transfer the patient out of the ICU to regular medical floor or could even consider discharging the patient home if cleared by neurology labs today including CBC and basic metabolic profile are normal and clinically the patient is doing well and stable Objective - Vital Signs Vital signs: Vital Signs Temp 97.9 F 12/28/23 08:00 Pulse 74 12/28/23 08:00 Resp 16 12/28/23 08:00 BP 118/96 12/28/23 08:00 Pulse Ox 98 12/28/23 08:00 FiO2 Intake & Output 12/27/23 12/28/23 12/28/23 18:59 06:59 18:59 Intake Total 480 1080 Output Total 750 Balance -270 1080 Weight 82.2 kg Intake: Intake, IV Titration 240 Amount Sodium Chloride 0.9% 1, 240 000 ml @ 120 mls/hr IV . Q8H20M [facility] Rx#:[id number] Oral 240 1080 Output: Urine 750 Other: Voiding Method Bedside Commode Bedside Commode Toilet # Voids 1 0 1 - Exam General: Revealed 48-year-old female in no distress, on room air Skin: Skin is warm and dry and no rashes or lesions are noted. Eye: Pupils are equal, round and reactive to light, extra-ocular movements are intact; there is normal conjunctiva bilaterally. Ears, nose, mouth and throat: There are moist mucous membranes and no oral lesions. Neck: The neck is supple, there is no tenderness or JVD. Cardiovascular: There is a regular rate and rhythm. No murmur, rub or gallop is appreciated. Respiratory: Clear bilaterally no crackles rhonchi or wheezes Gastrointestinal: Soft, non-distended, non-tender abdomen without masses or or ganomegaly noted. There is no rebound or guarding present. Bowel sounds are unremarkable. Back: There is no tenderness to palpation in the midline. There is no obvious deformity. Musculoskeletal: Normal ROM, no tenderness, There is no pedal edema. There is no calf tenderness or swelling. No cords were appreciated. Neurological: CN II-XII intact, Cranial nerves III through XII are intact. The re are no obvious motor or sensory deficits. Coordination appears grossly intact. Speech is normal. Psychiatric: Cooperative, appropriate mood & affect, normal judgment. - Labs CBC & Chem 7: 12/27/23 06:11 12/27/23 06:11 Labs: Abnormal Lab Results - Last 24 Hours (Table) 12/27/23 Range/Units 15:00 Ammonia 67 H (<30) umol/L Assessment and Plan Assessment: Impression: Breakthrough seizures, mostly because of noncompliance, patient ran out of her medications. History of seizure disorder History of GERD without esophagitis History of migraine cephalgia History of depression and anxiety Chronic pain syndrome Recommendation: Reviewed the report on her EEG Continue present seizure medications Consider transferring the patient out of the ICU to medical floor or could even consider discharge if cleared by neurology Continue seizure precautions Will continue to follow Time with Patient: Less than 30
--- NOTE | 2023-12-28 15:06 | P.CN ---
Psychiatric Consult - . Consult date: 12/28/23 Consult:: 12/28/23 13:54 IDENTIFYING DATA: This patient is a 48-year-old female, she is currently has 1 kid, lives in a house with her and child, she is unemployed REASON FOR REFERRAL: Psychiatry was consulted for depression screening HISTORY OF PRESENT ILLNESS: The patient presented to the hospital initially on 12/25 for seizures, apparently patient ran out of her Depakote at home. Patient was admitted to the ICU and currently being treated there, she had an EEG and neurology has been following along. Synthetic Chemist spoke with neurologist, social media sr strategy manager and also nurse prior to seeing the patient for further information and history. Nurse claims that patient had a another seizure today while going to the bathroom, did apparently endorse depression and anxiety before coming into the hospital. Patient was seen laying in bed today was agreeable to speak to comic writer. She had slowed speech, appeared to be somewhat drowsy. States that she is still recovering from the previous seizure that she had on her way to the bathroom. Claims that she has no aura before the seizures occur, claims that she did hit her head once, lost consciousness and also lost continence as well of her urine. States that she had about 8 seizures recently within the past few days, claims that she had 1 yesterday and also today. She states that this started happening about a couple years ago. She correct identified her name age she knew was December 2023 knew that she was in [facility]. States that she feels overwhelmed with the seizures and other disabling for her. Claims that they are almost daily now. States that she has not been able to have much control over them. Denies any paranoia at this time. Is endorsing depression and anxiety hopelessness. States that her sleep and appetite are poor. At this time patient denies any suicidal or homical ideations, intent or plan. Patient denies any auditory, visual hallucinations and denies any paranoia or delusions. Patients admits to using marijuana occasionally to help her with anxiety, denies any other recreational drug use or cigarette use. PAST PSYCHIATRIC HISTORY: Patient has a a history of depression/anxiety. She claims that she was on Depakote Trileptal and trazodone however did state that these are for seizure disorder and not for bipolar condition or mood stabilization.. Patient denies any previous psychiatric hospitalizations. Patient denies any psychiatric outpatient follow-up. She did claim that she had a suicide attempt when she was 17 years old when she cut herself in her wrist. Past Medical History: GERD/Reflux, Seizure Disorder Additional Past Medical History / Comment(s): Hx of migraines, elevated HR, one seizure/unknown cause 2016; "Severe reflux, awakening in noc w/ choking since gastric sleeve surgery." History of Any Multi-Drug Resistant Organisms: MRSA Date of last positivie culture/infection: 08/30/20 MDRO Source:: Right Thigh Past Surgical History: Bariatric Surgery, Cholecystectomy, Orthopedic Surgery Additional Past Surgical History / Comment(s): lap band 2009, gastic sleeve 04/03; EGD; IVF; metatarsus abduction/age 6; Past Anesthesia/Blood Transfusion Reactions: No Reported Reaction, Motion Sickness, Postoperative Nausea & Vomiting (PONV) Additional Past Anesthesia/Blood Transfusion Reaction / Comment(s): no hx of blood transfusion Past Psychological History: Anxiety, Depression Smoking Status: Never smoker Past Alcohol Use History: None Reported Past Drug Use History: None Reported ALLERGIES: as per EMR. CHEMICAL DEPENDENCY HISTORY: as per HPI. FAMILY PSYCHIATRIC/SUBSTANCE USE HISTORY: Claims that her father committed suicide, claims that her mother had some form of mental illness SOCIAL HISTORY: Patient was born and raised in [place]. Claims that she completed up to 10th grade in school. States that she has never had a legal history or [place] present. She is unemployed, she is currently has 1 kid, they live in a house with her and child. MENTAL STATUS EXAM: General Appearance: Patient appears to be oddly drowsy, stated age is alert, temps to be cooperative. Patient appears to have fair hygiene and grooming wearing hospital gown with fair eye contact. Behavior: Patient is calmly lying in bed without any agitated behavior. Appears somewhat drowsy, attempts to cooperate Speech: Patient's speech is fluent and nonpressured. Mood/Affect: Patient reports their mood is "depressed and anxious", affect is congruent Suicidality/Homicidality: Patient denies having any suicidal or homicidal ideation intent or plan. Perceptions: Patient denies any visual hallucinations and denies any auditory hallucinations Though content/process: There is no evidence of any delusional thought content and thought process is linear and goal-directed. [place] Memory and concentration: AOX3, grossly intact for the purposes of this session. Can spell "WORLD" backwards Judgment and insight: Fair IMPRESSIONS: Major depressive disorder, mild Anxiety disorder unspecified Seizure disorder PLAN: -At this time patient DOES NOT meet criteria for inpatient psychiatric admission. -Would recommend the following medication changes/additions: Patient is agreeable to try Zoloft, will start at 25 mg once now, increase to 50 mg daily starting tomorrow for mood/anxiety. This option apparently has the lowest risk for seizures out of the SSRIs. Remeron 15 mg nightly for sleep/mood/anxiety. Discontinue trazodone due to intolerance/ineffective. Melatonin nightly as needed for sleep -farmworker fryer farm to provide patient with outpatient mental health/psychiatry resources for appropriate follow up upon discharge -Communicated plan to patient's nurse -Psychiatry will sign off at this time unless patient decompensates further and requires follow up. -Please contact with any questions. 12/28/23 14:59
[2023-12-28] MEDS: SERTRALINE 25 MG TAB PO ONE (15:27)
[2023-12-28] MEDS: OXcarbazepine 150 MG TAB PO ONE (15:43)
[2023-12-28] MEDS: MIRTAZAPINE 15 MG TAB PO SCH (20:30)
[2023-12-28] MEDS: MELATONIN 3 MG TABLET PO PRN (20:30)
[2023-12-28] MEDS: OXcarbazepine 300 MG TAB PO SCH (20:31)
--- NOTE | 2023-12-29 05:42 | P.PN ---
Subjective Progress Note Date: 12/28/23 This is a pleasant 48-year-old female who was recently admitted for recurrent seizures with history of seizures. Patient follows with Dr. Galeano in the outpatient setting although reports running out of medications. Patient's family at the bedside as patient continues to report significant headache and dizziness and lightheadedness. Patient did strike her head and fall flat on her face when having a seizure prior to admission. Patient mentation is improved although patient is severely depressed. Patient with neurology following undergoing further workup. Will add meclizine and supportive care for the headache. Recommend increased activity as tolerated. Patient is a transfer out of the ICU once a bed becomes available. 12/28/2023 Patient is seen in follow-up today initially seizure-free although upon exam patient was having another seizure that was witnessed by nursing staff and improved after Ativan administration. Neurology following undergoing further workup including EEG and medication adjustments. Psychiatry also consulted and pending as patient is severely depressed. Patient afebrile and otherwise stable and was being considered for transfer out of the ICU. No bed available at this time. Continue with seizure precautions and monitor for any further seizure activity Review of systems: Unable to completely assess as patient was just actively seizing Active Medications Acetaminophen/Codeine Phosphate (Acetaminophen-Codeine 300-30mg Tab) 1 each PO Q6HR PRN PRN Reason: Pain Hydrocodone Bitart/Acetaminophen (Hydrocodone/Apap 10-325mg 1 Each Tab) 1 each PO Q6HR PRN PRN Reason: Pain Last Admin: 12/28/23 20:35 Dose: 1 each Divalproex Sodium (Divalproex 500 Mg Tablet.) 1,000 mg PO BID [facility] Last Admin: 12/28/23 20:30 Dose: 1,000 mg Folic Acid (Folic Acid 1 Mg Tab) 1 mg PO DAILY@1200 [facility] Hydroxyzine HCl (Hydroxyzine Hcl 25 Mg Tab) 25 mg PO QID PRN PRN Reason: Anxiety Lacosamide (Lacosamide 150 Mg Tablet) 150 mg PO TID [facility] Last Admin: 12/28/23 20:33 Dose: 150 mg Lactulose (Lactulose 20 Gm/30 Ml Cup) 20 gm PO BID [facility] Lorazepam (Lorazepam 2 Mg/Ml Inj) 1 mg IV Q5M PRN PRN Reason: Seizures Last Admin: 12/28/23 21:38 Dose: 1 mg Meclizine HCl (Meclizine 12.5 Mg Tab) 12.5 mg PO TID [facility] Last Admin: 12/28/23 20:30 Dose: 12.5 mg Melatonin (Melatonin 3 Mg Tablet) 6 mg PO HS PRN PRN Reason: insomnia Last Admin: 12/28/23 20:30 Dose: 6 mg Mirtazapine (Mirtazapine 15 Mg Tab) 15 mg PO HS [facility] Last Admin: 12/28/23 20:30 Dose: 15 mg Multivitamins (Multivitamins, Thera 1 Each Tab) 1 each PO DAILY@1200 [facility] Naloxone HCl (Naloxone 0.4 Mg/Ml 1 Ml Vial) 0.2 mg IV Q2M PRN PRN Reason: Opioid Reversal Ondansetron HCl (Ondansetron 4 Mg/2 Ml Vial) 4 mg IVP Q6HR PRN PRN Reason: Nausea And Vomiting Last Admin: 12/28/23 17:08 Dose: 4 mg Oxcarbazepine (Oxcarbazepine 300 Mg Tab) 300 mg PO BID [facility] Last Admin: 12/28/23 20:31 Dose: 300 mg Sertraline HCl (Sertraline 50 Mg Tab) 50 mg PO DAILY [facility] Thiamine HCl (Thiamine 100 Mg Tab) 100 mg PO DAILY@1200 [facility] PHYSICAL EXAMINATION: GENERAL: The patient is alert and oriented x1, postictal, well developed, appears older than stated age, ill-appearing HEENT: Pupils are round and equally reacting to light. EOMI. no scleral icterus. No conjunctival pallor. Normocephalic, atraumatic. No pharyngeal erythema. No thyromegaly. CARDIOVASCULAR: S1 and S2 muffled PULMONARY: diminished breath sounds bilaterally with no wheezing or rhonchi noted. ABDOMEN: soft. Nontender on exam. obese. non-distended, normoactive bowel sounds. No palpable organomegaly. MUSCULOSKELETAL: No joint swelling or deformity. EXTREMITIES: No cyanosis, clubbing, or pedal edema. NEUROLOGICAL: Gross neurological examination did not reveal any focal deficits. Diffuse weakness SKIN: No rashes. Assessment: Acute seizure disorder with breakthrough seizures Change in mental status, metabolic encephalopathy, possible cerebral concussion as patient did strike her head on seizure at home Gastroesophageal reflux disease History of migraines History of gastric sleeve surgery Anxiety and depression GI prophylaxis DVT prophylaxis Full code Plan: Recommend to continue with current medications and management with neurology following. Patient is a transfer out of the ICU once a bed becomes available. Continuing ongoing workup and patient is maintained on seizure medications. No further seizure activity was noted until just recently patient did have a seizu re. Ativan was given and neurology was contacted. Continue current regimen and adjusting medications per neurology Noted although patient continues to report severe headache and dizziness and lightheadedness. Mildly improved we will continue supportive care Patient evaluated by psychiatry making adjustments to medications recommending outpatient follow-up with [facility] and counseling. Patient does not meet inpatient criteria for psychiatry Recommend PT/OT therapy evaluation and encouraged to increase activity as tolerated Encourage sitting up more frequently Will discuss further with neurology regarding discharge planning Overall prognosis guarded The impression and plan of care has been dictated by Lisa Choudhury, nurse practitioner as directed. Dr. Heriberto MD I have performed a history and examination and MDM of this patient, discussed the same with the dictator, and agree with the dictator's assessment and plan as written ,documented as a scribe. Based on total visit time, I have performed more than 50% of the visit. Any additional findings or plans will be noted. Objective - Vital Signs Vital signs: Vital Signs Temp 97.9 F 12/28/23 08:00 Pulse 74 12/28/23 08:00 Resp 16 12/28/23 08:00 BP 118/96 12/28/23 08:00 Pulse Ox 98 12/28/23 08:00 FiO2 Intake & Output 12/27/23 12/28/23 12/28/23 18:59 06:59 18:59 Intake Total 480 540 Output Total 750 Balance -270 540 Weight 82.2 kg Intake: Intake, IV Titration 240 Amount Sodium Chloride 0.9% 1, 240 000 ml @ 120 mls/hr IV . Q8H20M [facility] Rx#:[id number] Oral 240 540 Output: Urine 750 Other: Voiding Method Bedside Commode Bedside Commode # Voids 1 0 - Labs CBC & Chem 7: 12/27/23 06:11 12/27/23 06:11 Labs: Abnormal Lab Results - Last 24 Hours (Table) 12/27/23 Range/Units 15:00 Ammonia 67 H (<30) umol/L
[2023-12-29 05:57] LABS: Basophils % (A) 1 %; Eosinophils # (A) 0.1 k/uL (0-0.7); Eosinophils % (A) 2 %; HCT 31.4 % (34.0-46.0); HGB 10.1 gm/dL (11.4-16.0); Hypochromasia Slight; Lymphocytes # (A) 2.4 k/uL (1.0-4.8); Lymphocytes % (A) 51 %; MCH 29.1 pg (25.0-35.0); MCHC 32.1 g/dL (31.0-37.0); MCV 90.7 fL (80.0-100.0); Mean Platelet Volume 7.4; Monocytes # (A) 0.3 k/uL (0-1.0); Monocytes % (A) 7 %; Neutrophils # (A) 1.8 k/uL (1.3-7.7); Neutrophils % (A) 38 %; Platelet Count 195 k/uL (150-450); RBC 3.47 m/uL (3.80-5.40); RDW 15.3 % (11.5-15.5); WBC 4.8 k/uL (3.8-10.6)
[2023-12-29 06:24] LABS: ALT 7 U/L (4-34); AST 12 U/L (14-36); African American GFR (CKD) >90 (>60 ml/min/1.73 sqM); Albumin 2.8 g/dL (3.5-5.0); Alkaline Phosphatase 38 U/L (38-126); Anion Gap 1 mmol/L; Blood Urea Nitrogen 15 mg/dL (7-17); Calcium 8.2 mg/dL (8.4-10.2); Carbon Dioxide 28 mmol/L (22-30); Chloride 107 mmol/L (98-107); Glucose 79 mg/dL (74-99); Non-African American GFR(CKD) 81 (>60 ml/min/1.73 sqM); Potassium 3.6 mmol/L (3.5-5.1); Sodium 136 mmol/L (137-145); Total Bilirubin 0.2 mg/dL (0.2-1.3); Total Protein 5.1 g/dL (6.3-8.2)
[2023-12-29] MEDS: LACTULOSE 20 GM/30 ML CUP PO SCH (08:01)
[2023-12-29] MEDS: SERTRALINE 50 MG TAB PO SCH (08:02)
[2023-12-29] MEDS: LACOSAMIDE 50 MG TABLET PO SCH (09:44)
--- NOTE | 2023-12-29 10:13 | P.PN ---
Subjective Progress Note Date: 12/28/23 Patient was seen for a follow-up. Patient has been anxious. Patient complains of low back pain. Also some nausea and dizziness. Patient is laying in the bed, was somnolent, but does wake up and answers appropriately and follows commands and follows directions. Objective - Vital Signs Vital signs: Vital Signs Temp 97.6 F 12/28/23 14:00 Pulse 82 12/28/23 14:00 Resp 19 12/28/23 14:00 BP 108/59 12/28/23 14:00 Pulse Ox 93 L 12/28/23 14:00 FiO2 Intake & Output 12/27/23 12/28/23 12/28/23 18:59 06:59 18:59 Intake Total 480 1080 Output Total 750 Balance -270 1080 Weight 82.2 kg Intake: Intake, IV Titration 240 Amount Sodium Chloride 0.9% 1, 240 000 ml @ 120 mls/hr IV . Q8H20M [facility] Rx#:[id number] Oral 240 1080 Output: Urine 750 Other: Voiding Method Bedside Commode Bedside Commode Toilet # Voids 1 0 1 # Bowel Movements 1 - Exam Patient is a middle aged female, somewhat somnolent, but not in any distress. Patient wakes up to calling her name and follows directions appropriately. Patient knows it is December 2023 and that she is in [facility]. Speech and language functions are normal. Patient can name and repeat very well. No aphasia or dysarthria. Attention, concentration is diminished and fund of knowledge is difficult to assess at this time because of her mentation. On cranial nerve examination, pupils are equal, round and reacting to light, visual coon are full on confrontation, with no neglect on double simultaneous stimulation. Extraocular muscles are intact with no nystagmus. Face is symmetric, tongue protrudes to the midline. Palatal elevation and sensation normal, hearing and shoulder shrug normal, facial sensation normal. No evidence of tongue bite krissy. On muscle strength testing, there is no pronator drift and the strength is normal in arms and legs distally and proximally. Deep tendon reflexes are symmetric, hypoactive and plantars are flat bilaterally. Sensory to touch is equal with no neglect on double simultaneous stimulation. Cerebellar function showed no ataxia for [id number] testing. No dysdiadochokinesia. No ataxia for [id number] testing on either side. Tone and bulk of muscles normal. Patient has significant myoclonic jerks of outstretched hands. - Labs CBC & Chem 7: 12/29/23 05:33 12/29/23 05:33 Labs: Abnormal Lab Results - Last 24 Hours (Table) 12/27/23 Range/Units 15:00 Ammonia 67 H (<30) umol/L Assessment and Plan Assessment: * Seizure disorder, came with status epilepticus. Patient apparently had ran out of her Depakote and missed 4 doses before she had recurrent seizures. * Seizure disorder, for last 2 years since she received flu and COVID shots. * Metabolic encephalopathy with evidence of myoclonic jerks * Hyperammonemia, likely due to Depakote therapy * History of gastric bypass 2017 * Depression, anxiety * Marijuana use Plan: * Patient had been stable overnight. Patient was being considered for discharge, but had couple seizures recently. * EEG was performed, which was abnormal EEG due to recording of an electrographic seizure, started with focal sharp waves involving the left temporal region and involving to high amplitude rhythmic delta over the left temporal region that lasted for 7 minutes, aborted with 1 mg of Ativan. This is suggestive of focal irritative lesion with tendency for focal onset seizure. There was also presence of frontal intermittent rhythmic delta activity, which may suggest underlying encephalopathy or convulsive tendency. * Depakote level is 72.4, which is therapeutic. Ammonia is 67, likely related to use of Depakote. We may have to taper off Depakote. Patient has never tried Lamictal or Trileptal. Patient started on Trileptal 150 mg twice daily. Patient had a breakthrough seizure today. We will increase dose of Trileptal to 300 mg twice daily. Need to watch for any rash. If any rash develops, may have to stop Trileptal. Her sodium is normal. * B12 501, folate 13.3, both normal * Patient has been resumed on her Depakote 1000 mg twice daily, and Vimpat 150 mg twice daily. * Patient has previously developed side effects from Keppra, therefore cannot be tried. She also had some side effects from Dilantin in the past as well. * Patient may have to be tapered off Depakote because of high ammonia.
[2023-12-29] MEDS: LORazepam 2 MG/ML INJ IV STA (11:08)
[2023-12-29 11:38] LABS: Glucose,Whole Blood 84 mg/dL (70-110)
--- NOTE | 2023-12-29 12:43 | P.PN ---
Subjective Progress Note Date: 12/29/23 Principal diagnosis: Status epilepticus This is a 48-year-old female with history of seizure disorder for the last 2 years, patient is maintained on seizure medications, however the patient ran out of her seizure meds, and she went on to develop recurrent seizures. Patient is normally on Depakote, and she follows up with Dr. Cervantes/neurologist. Patient had couple of short seizures en route to the hospital, and she had couple more seizures while in the ER. Patient received Ativan with improvement and she was also placed on Depakote and on Vimpat. Considering her postictal phase and recurrent seizures I was notified about this patient from the ER physician/Dr. Holt, and I admitted the patient to the ICU. No seizures overnight. Patient seems to be doing quite well today. Not in any distress. CT brain was unremarkable. Chest x-ray showed no evidence of pneumonia and no acute process. Labs today showed relatively normal CBC hemoglobin is 10.4 relatively normal electrolytes and normal renal profile. Valproic acid level yesterday was 21, subtherapeutic Patient seen today on 12/28/2023, patient remains in the ICU as an overflow. No seizure activity in the last 24 hours, reviewed the results of her EEG, patient remains seizure-free, she is on Depakote and Vimpat. Being followed by neurology, her workup has been all noted including the EEG findings showing seizure focus. Plan is to transfer the patient out of the ICU to regular medical floor or could even consider discharging the patient home if cleared by neurology labs today including CBC and basic metabolic profile are normal and clinically the patient is doing well and stable Patient was seen today on 12/29/2023, she was on the medical floor earlier today when I saw her, however shortly after I saw the patient apparently had multiple seizures requiring Ativan. Patient was sent back to the ICU today and she is to be seen by neurology for follow-up on her seizure disorder. Patient has been seen by Dr. Valdez all along since admission, patient is on Depakote, she is also on Trileptal, and on Vimpat. CBC is basically unremarkable basic metabolic profile is normal Objective - Vital Signs Vital signs: Vital Signs Temp 97.5 F L 12/29/23 08:15 Pulse 122 H 12/29/23 11:10 Resp 16 12/29/23 08:15 BP 133/82 12/29/23 11:10 Pulse Ox 100 12/29/23 11:10 FiO2 Intake & Output 12/28/23 12/29/23 12/29/23 18:59 06:59 18:59 Intake Total 1080 Output Total 0 200 Balance 1080 -200 Intake: Oral 1080 Output: Urine 0 200 Other: Voiding Method Toilet Bedpan Bedside Commode # Voids 1 1 # Bowel Movements 1 - Exam General: Revealed 48-year-old female in no distress, on room air Skin: Skin is warm and dry and no rashes or lesions are noted. Eye: Pupils are equal, round and reactive to light, extra-ocular movements are intact; there is normal conjunctiva bilaterally. Ears, nose, mouth and throat: There are moist mucous membranes and no oral lesions. Neck: The neck is supple, there is no tenderness or JVD. Cardiovascular: There is a regular rate and rhythm. No murmur, rub or gallop is appreciated. Respiratory: Clear bilaterally no crackles rhonchi or wheezes Gastrointestinal: Soft, non-distended, non-tender abdomen without masses or organomegaly noted. There is no rebound or guarding present. Bowel sounds are unremarkable. Back: There is no tenderness to palpation in the midline. There is no obvious deformity. Musculoskeletal: Normal ROM, no tenderness, There is no pedal edema. There is no calf tenderness or swelling. No cords were appreciated. Neurological: CN II-XII intact, Cranial nerves III through XII are intact. There are no obvious motor or sensory deficits. Coordination appears grossly intact. Speech is normal. Psychiatric: Cooperative, appropriate mood & affect, normal judgment. - Labs CBC & Chem 7: 12/29/23 05:33 12/29/23 05:33 Labs: Abnormal Lab Results - Last 24 Hours (Table) 12/29/23 12/29/23 12/29/23 Range/Units 05:33 05:33 05:33 RBC 3.47 L (3.80-5.40) m/uL Hgb 10.1 L (11.4-16.0) gm/dL Hct 31.4 L (34.0-46.0) % Sodium 136 L (137-145) mmol/L Calcium 8.2 L (8.4-10.2) mg/dL AST 12 L (14-36) U/L Ammonia 44 H (<30) umol/L Total Protein 5.1 L (6.3-8.2) g/dL Albumin 2.8 L (3.5-5.0) g/dL Assessment and Plan Assessment: Impression: Status epilepticus History of seizure disorder History of GERD without esophagitis History of migraine cephalgia History of depression and anxiety Chronic pain syndrome Recommendation: Patient will be sent back to ICU and she will be seen again by neurology to adjust her seizure medications Continue present seizure medications Continue seizure precautions Will continue to follow Time with Patient: Less than 30
[2023-12-29] MEDS: MULTIVITAMINS, THERA 1 EACH TAB PO SCH (12:59)
[2023-12-29] MEDS: FOLIC ACID 1 MG TAB PO SCH (12:59)
[2023-12-29] MEDS: THIAMINE 100 MG TAB PO SCH (12:59)
--- NOTE | 2023-12-30 03:58 | P.PN ---
Subjective Progress Note Date: 12/29/23 This is a pleasant 48-year-old female who was recently admitted for recurrent seizures with history of seizures. Patient follows with Dr. Galeano in the outpatient setting although reports running out of medications. Patient's family at the bedside as patient continues to report significant headache and dizziness and lightheadedness. Patient did strike her head and fall flat on her face when having a seizure prior to admission. Patient mentation is improved although patient is severely depressed. Patient with neurology following undergoing further workup. Will add meclizine and supportive care for the headache. Recommend increased activity as tolerated. Patient is a transfer out of the ICU once a bed becomes available. 12/28/2023 Patient is seen in follow-up today initially seizure-free although upon exam patient was having another seizure that was witnessed by nursing staff and improved after Ativan administration. Neurology following undergoing further workup including EEG and medication adjustments. Psychiatry also consulted and pending as patient is severely depressed. Patient afebrile and otherwise stable and was being considered for transfer out of the ICU. No bed available at this time. Continue with seizure precautions and monitor for any further seizure activity 12/29/2023 Patient is seen in follow-up currently transferred out of the ICU early this morning and on exam patient is actively seizing and appears status. Patient will be going back to the ICU and discussing further with neurology regarding possible transfer for tertiary treatment. Medications being adjusted per neurology and will discuss further. Patient was evaluated by psychiatry making adjustments to medications and does not meet inpatient criteria recommending outpatient follow-up with counseling. Review of systems: Unable to completely assess as patient was just actively seizing Active Medications Acetaminophen/Codeine Phosphate (Acetaminophen-Codeine 300-30mg Tab) 1 each PO Q6HR PRN PRN Reason: Pain Hydrocodone Bitart/Acetaminophen (Hydrocodone/Apap 10-325mg 1 Each Tab) 1 each PO Q6HR PRN PRN Reason: Pain Last Admin: 12/29/23 20:49 Dose: 1 each Divalproex Sodium (Divalproex 500 Mg Tablet.) 1,000 mg PO BID [facility] Last Admin: 12/29/23 20:48 Dose: 1,000 mg Folic Acid (Folic Acid 1 Mg Tab) 1 mg PO DAILY@1200 [facility] Last Admin: 12/29/23 12:59 Dose: Not Given Hydroxyzine HCl (Hydroxyzine Hcl 25 Mg Tab) 25 mg PO QID PRN PRN Reason: Anxiety Lacosamide (Lacosamide 50 Mg Tablet) 150 mg PO TID [facility] Last Admin: 12/29/23 21:43 Dose: 150 mg Lactulose (Lactulose 20 Gm/30 Ml Cup) 20 gm PO BID [facility] Last Admin: 12/29/23 20:48 Dose: 20 gm Lorazepam (Lorazepam 2 Mg/Ml Inj) 1 mg IV Q5M PRN PRN Reason: Seizures Last Admin: 12/29/23 19:09 Dose: 1 mg Meclizine HCl (Meclizine 12.5 Mg Tab) 12.5 mg PO TID [facility] Last Admin: 12/29/23 21:43 Dose: 12.5 mg Melatonin (Melatonin 3 Mg Tablet) 6 mg PO HS PRN PRN Reason: insomnia Last Admin: 12/28/23 20:30 Dose: 6 mg Mirtazapine (Mirtazapine 15 Mg Tab) 15 mg PO HS [facility] Last Admin: 12/29/23 20:49 Dose: 15 mg Multivitamins (Multivitamins, Thera 1 Each Tab) 1 each PO DAILY@1200 [facility] Last Admin: 12/29/23 12:59 Dose: Not Given Naloxone HCl (Naloxone 0.4 Mg/Ml 1 Ml Vial) 0.2 mg IV Q2M PRN PRN Reason: Opioid Reversal Ondansetron HCl (Ondansetron 4 Mg/2 Ml Vial) 4 mg IVP Q6HR PRN PRN Reason: Nausea And Vomiting Last Admin: 12/29/23 14:34 Dose: 4 mg Oxcarbazepine (Oxcarbazepine 300 Mg Tab) 300 mg PO BID [facility] Last Admin: 12/29/23 20:49 Dose: 300 mg Sertraline HCl (Sertraline 50 Mg Tab) 50 mg PO DAILY [facility] Last Admin: 12/29/23 08:02 Dose: 50 mg Thiamine HCl (Thiamine 100 Mg Tab) 100 mg PO DAILY@1200 [facility] Last Admin: 12/29/23 12:59 Dose: Not Given PHYSICAL EXAMINATION: GENERAL: The patient is alert and oriented x0, seizing, well developed, appears older than stated age, ill-appearing HEENT: Pupils are round and equally reacting to light. EOMI. no scleral icterus. No conjunctival pallor. Normocephalic, atraumatic. No pharyngeal erythema. No thyromegaly. CARDIOVASCULAR: S1 and S2 muffled, tacky PULMONARY: diminished breath sounds bilaterally with no wheezing or rhonchi noted. ABDOMEN: soft. Nontender on exam. obese. non-distended, normoactive bowel sounds. No palpable organomegaly. MUSCULOSKELETAL: No joint swelling or deformity. EXTREMITIES: No cyanosis, clubbing, or pedal edema. NEUROLOGICAL: Gross neurological examination did not reveal any focal deficits. Diffuse weakness SKIN: No rashes. Assessment: Acute seizure disorder with breakthrough seizures Change in mental status, metabolic encephalopathy, possible cerebral concussion as patient did strike her head on seizure at home Gastroesophageal reflux disease History of migraines History of gastric sleeve surgery Anxiety and depression GI prophylaxis DVT prophylaxis Full code Plan: Recommend to continue with current medications and management with neurology following. Patient was a transfer out of the ICU early this morning although upon exam this morning and a team was called as patient was actively seizing and will be brought back to the ICU for close monitoring. Neurology consulted discussing possible need for transfer to tertiary treatment if seizures persist Continue current regimen and adjusting medications per neurology Patient evaluated by psychiatry making adjustments to medications recommending outpatient follow-up with [facility] and counseling. Patient does not meet inpatient criteria for psychiatry Recommend PT/OT therapy evaluation and encouraged to increase activity as tolerated Encourage sitting up more frequently Will discuss further with neurology regarding possible need for transfer Overall prognosis is extremely guarded The impression and plan of care has been dictated by Lisa Choudhury, nurse practitioner as directed. Dr. Heriberto MD I have performed a history and examination and MDM of this patient, discussed the same with the dictator, and agree with the dictator's assessment and plan as written ,documented as a scribe. Based on total visit time, I have performed more than 50% of the visit. Any additional findings or plans will be noted. Objective - Vital Signs Vital signs: Vital Signs Temp 98.1 F 12/30/23 00:00 Pulse 62 12/30/23 02:00 Resp 13 12/30/23 02:00 BP 104/61 12/30/23 02:00 Pulse Ox 98 12/30/23 02:00 FiO2 Intake & Output 12/29/23 12/29/23 12/30/23 06:59 18:59 06:59 Output Total 200 0 0 Balance -200 0 0 Weight 81.5 kg Output: Urine 200 0 0 Other: Voiding Method Bedpan Bedside Commode Bedpan # Voids 1 - Labs CBC & Chem 7: 12/29/23 05:33 12/29/23 05:33 Labs: Abnormal Lab Results - Last 24 Hours (Table) 12/29/23 12/29/23 12/29/23 Range/Units 05:33 05:33 05:33 RBC 3.47 L (3.80-5.40) m/uL Hgb 10.1 L (11.4-16.0) gm/dL Hct 31.4 L (34.0-46.0) % Sodium 136 L (137-145) mmol/L Calcium 8.2 L (8.4-10.2) mg/dL AST 12 L (14-36) U/L Ammonia 44 H (<30) umol/L Total Protein 5.1 L (6.3-8.2) g/dL Albumin 2.8 L (3.5-5.0) g/dL
[2023-12-30 05:06] LABS: Basophils % (A) 0 %; Eosinophils # (A) 0.1 k/uL (0-0.7); Eosinophils % (A) 3 %; HCT 31.8 % (34.0-46.0); HGB 10.1 gm/dL (11.4-16.0); Hypochromasia Marked; Lymphocytes # (A) 2.3 k/uL (1.0-4.8); Lymphocytes % (A) 44 %; MCH 29.3 pg (25.0-35.0); MCHC 31.8 g/dL (31.0-37.0); Mean Platelet Volume 6.5; Monocytes # (A) 0.4 k/uL (0-1.0); Monocytes % (A) 7 %; Neutrophils # (A) 2.3 k/uL (1.3-7.7); Neutrophils % (A) 44 %; Platelet Count 161 k/uL (150-450); RBC 3.46 m/uL (3.80-5.40); WBC 5.3 k/uL (3.8-10.6)
[2023-12-30 05:19] LABS: African American GFR (CKD) >90 (>60 ml/min/1.73 sqM); Anion Gap 3 mmol/L; Blood Urea Nitrogen 13 mg/dL (7-17); Calcium 8.2 mg/dL (8.4-10.2); Carbon Dioxide 29 mmol/L (22-30); Chloride 106 mmol/L (98-107); Glucose 72 mg/dL (74-99); Non-African American GFR(CKD) >90 (>60 ml/min/1.73 sqM); Potassium 3.8 mmol/L (3.5-5.1); Sodium 138 mmol/L (137-145)
[2023-12-30] MEDS ORDERED: Potassium Replacement Protocol 1 EACH MISC MISCELLANE PRN (06:28)
[2023-12-30 06:37] LABS: Glucose,Whole Blood 96 mg/dL (70-110)
[2023-12-30] MEDS: POTASSIUM CHLORIDE ER 20 MEQ TAB.ER PO SCH (06:41)
--- NOTE | 2023-12-30 08:34 | P.PN ---
Subjective Progress Note Date: 12/29/23 Patient was seen for a follow-up. Patient apparently had another seizure, lasting for about 5 to 6 minutes for which she received 6 mg of Ativan, non- lethargic. Patient had only 1 seizure in 24 hours. Patient has just been started on Trileptal, need time to get effective in the system. At present annamaria ent is somnolent from being postictal and more likely from receiving Ativan. Objective - Vital Signs Vital signs: Vital Signs Temp 97.5 F L 12/29/23 08:15 Pulse 122 H 12/29/23 12:32 Resp 16 12/29/23 12:32 BP 150/106 12/29/23 12:00 Pulse Ox 100 12/29/23 12:00 FiO2 Intake & Output 12/28/23 12/29/23 12/29/23 18:59 06:59 18:59 Intake Total 1080 Output Total 0 200 0 Balance 1080 -200 0 Intake: Oral 1080 Output: Urine 0 200 0 Other: Voiding Method Toilet Bedpan Bedside Commode # Voids 1 1 # Bowel Movements 1 - Exam Patient is a middle aged female, somewhat somnolent, but not in any distress. Patient wakes up to calling her name and follows directions appropriately. Patient knows it is December 2023 and that she is in [facility] imported on [place]. Speech and language functions are normal. Patient can name and repeat very well. No aphasia or dysarthria. Attention, concentration is dim inished and fund of knowledge is difficult to assess at this time because of her mentation. On cranial nerve examination, pupils are equal, round and reacting to light, visual coon are full on confrontation, with no neglect on double simultaneous stimulation. Extraocular muscles are intact with no nystagmus. Face is symmetric, tongue protrudes to the midline. Palatal elevation and sensation normal, hearing and shoulder shrug normal, facial sensation normal. No evidence of tongue bite krissy. On muscle strength testing, there is no pronator drift and the strength is normal in arms and legs distally and proximally. Deep tendon reflexes are symmetric, hypoactive and plantars are flat b ilaterally. Sensory to touch is equal with no neglect on double simultaneous stimulation. Cerebellar function showed no ataxia for [id number] testing. No dysdiadochokinesia. No ataxia for [id number] testing on either side. Tone and bulk of muscles normal. Patient has significant myoclonic jerks of outstretched hands. - Labs CBC & Chem 7: 12/30/23 04:16 12/30/23 04:16 Labs: Abnormal Lab Results - Last 24 Hours (Table) 12/29/23 12/29/23 12/29/23 Range/Units 05:33 05:33 05:33 RBC 3.47 L (3.80-5.40) m/uL Hgb 10.1 L (11.4-16.0) gm/dL Hct 31.4 L (34.0-46.0) % Sodium 136 L (137-145) mmol/L Calcium 8.2 L (8.4-10.2) mg/dL AST 12 L (14-36) U/L Ammonia 44 H (<30) umol/L Total Protein 5.1 L (6.3-8.2) g/dL Albumin 2.8 L (3.5-5.0) g/dL Assessment and Plan Assessment: * Seizure disorder, came with status epilepticus. Patient apparently had ran out of her Depakote and missed 4 doses before she had recurrent seizures. Patient continues to have almost 1 seizure a day. Not in status epilepticus. * Seizure disorder, for last 2 years since she received flu and COVID shots. * Metabolic encephalopathy with evidence of myoclonic jerks * Hyperammonemia, likely due to Depakote therapy * History of gastric bypass 2018 * Depression, anxiety * Marijuana use Plan: * Patient had another seizure earlier today at 12:37 PM. Patient transferred back to ICU. Patient is somnolent from receiving Ativan 6 mg. * Continue Trileptal 300 mg twice daily. It was just started yesterday. Will take at least 48 hours to be effective in the system. Continue Vimpat 150 mg 3 times daily and Depakote 1000 mg twice daily for now. * EEG was performed, which was abnormal EEG due to recording of an el ectrographic seizure, started with focal sharp waves involving the left temporal region and involving to high amplitude rhythmic delta over the left temporal region that lasted for 7 minutes, aborted with 1 mg of Ativan. This is suggestive of focal irritative lesion with tendency for focal onset se izure. There was also presence of frontal intermittent rhythmic delta activity, which may suggest underlying encephalopathy or convulsive tendency. * Depakote level is 72.4, which is therapeutic. Ammonia is 67, likely related to use of Depakote. Repeat ammonia is 44 improved. We may have to taper off Depakote. Patient has never tried Lamictal or Trileptal. Patient started on Trileptal 150 mg twice daily. * B12 501, folate 13.3, both normal * Patient has previously developed side effects from Keppra, therefore cannot be tried. She also had some side effects from Dilantin in the past as well. * Patient may have to be tapered off Depakote because of high ammonia. * DVT prophylaxis: Start heparin 5000 subcu every 8 hours.
[2023-12-30] MEDS: HEPARIN SODIUM,PORCINE 5,000 UNIT/ML 1 ML VIAL SQ SCH (09:16)
--- NOTE | 2023-12-30 11:14 | P.PN ---
Subjective Progress Note Date: 12/30/23 Principal diagnosis: Status epilepticus This is a 48-year-old female with history of seizure disorder for the last 2 years, patient is maintained on seizure medications, however the patient ran out of her seizure meds, and she went on to develop recurrent seizures. Patient is normally on Depakote, and she follows up with Dr. Cervantes/neurologist. Patient had couple of short seizures en route to the hospital, and she had couple more seizures while in the ER. Patient received Ativan with improvement and she was also placed on Depakote and on Vimpat. Considering her postictal phase and recurrent seizures I was notified about this patient from the ER physician/Dr. Holt, and I admitted the patient to the ICU. No seizures overnight. Patient seems to be doing quite well today. Not in any distress. CT brain was unremarkable. Chest x-ray showed no evidence of pneumonia and no acute process. Labs today showed relatively normal CBC hemoglobin is 10.4 relatively normal electrolytes and normal renal profile. Valproic acid level yesterday was 21, subtherapeutic Patient seen today on 12/28/2023, patient remains in the ICU as an overflow. No seizure activity in the last 24 hours, reviewed the results of her EEG, patient remains seizure-free, she is on Depakote and Vimpat. Being followed by neurology, her workup has been all noted including the EEG findings showing seizure focus. Plan is to transfer the patient out of the ICU to regular medical floor or could even consider discharging the patient home if cleared by neurology labs today including CBC and basic metabolic profile are normal and clinically the patient is doing well and stable Patient was seen today on 12/29/2023, she was on the medical floor earlier today when I saw her, however shortly after I saw the patient apparently had multiple seizures requiring Ativan. Patient was sent back to the ICU today and she is to be seen by neurology for follow-up on her seizure disorder. Patient has been seen by Dr. Valdez all along since admission, patient is on Depakote, she is also on Trileptal, and on Vimpat. CBC is basically unremarkable basic metabolic profile is normal Patient was today on 12/30/2023, patient was transferred back to the ICU yesterday mostly because she went on to develop recurrent seizures/status epilepticus, seen by neurology, and she had already treatment with Depakote Vimpat and Trileptal. No seizure activity overnight, patient is doing well today, does not seem to be in any distress, neurology is following. But again no seizure activity in the last 12 hours. WBC is 5.3 hemoglobin 10.1 basic metabolic profile is normal renal profile is normal blood sugar is 72. Objective - Vital Signs Vital signs: Vital Signs Temp 97.8 F 12/30/23 08:00 Pulse 90 12/30/23 11:00 Resp 14 12/30/23 11:00 BP 137/88 12/30/23 11:00 Pulse Ox 98 12/30/23 11:00 FiO2 Intake & Output 12/29/23 12/30/23 12/30/23 18:59 06:59 18:59 Intake Total 120 Output Total 0 0 400 Balance 0 120 -400 Weight 81.5 kg Intake: Oral 120 Output: Urine 0 0 400 Other: Voiding Method Bedside Commode Bedpan Bedside Commode # Voids 1 - Exam General: Revealed 48-year-old female in no distress, on room air Skin: Skin is warm and dry and no rashes or lesions are noted. Eye: Pupils are equal, round and reactive to light, extra-ocular movements are intact; there is normal conjunctiva bilaterally. Ears, nose, mouth and throat: There are moist mucous membranes and no oral lesions. Neck: The neck is supple, there is no tenderness or JVD. Cardiovascular: There is a regular rate and rhythm. No murmur, rub or gallop is appreciated. Respiratory: Clear bilaterally no crackles rhonchi or wheezes Gastrointestinal: Soft, non-distended, non-tender abdomen without masses or organomegaly noted. There is no rebound or guarding present. Bowel sounds are unremarkable. Back: There is no tenderness to palpation in the midline. There is no obvious deformity. Musculoskeletal: Normal ROM, no tenderness, There is no pedal edema. There is no calf tenderness or swelling. No cords were appreciated. Neurological: CN II-XII intact, Cranial nerves III through XII are intact. There are no obvious motor or sensory deficits. Coordination appears grossly intact. Speech is normal. Psychiatric: Cooperative, appropriate mood & affect, normal judgment. - Labs CBC & Chem 7: 12/30/23 04:16 12/30/23 04:16 Labs: Abnormal Lab Results - Last 24 Hours (Table) 12/30/23 12/30/23 Range/Units 04:16 04:16 RBC 3.46 L (3.80-5.40) m/uL Hgb 10.1 L (11.4-16.0) gm/dL Hct 31.8 L (34.0-46.0) % Glucose 72 L (74-99) mg/dL Calcium 8.2 L (8.4-10.2) mg/dL Assessment and Plan Assessment: Impression: Status epilepticus, maintained on Trileptal, Vimpat, and Depakote History of seizure disorder History of GERD without esophagitis History of migraine cephalgia History of depression and anxiety Chronic pain syndrome Recommendation: To monitor in the ICU for the next 24 hours Continue present seizure medications Continue seizure precautions Neurology is following regarding her seizures Will continue to follow Time with Patient: Less than 30
[2023-12-30] MEDS: OXcarbazepine 150 MG TAB PO ONE (12:36)
[2023-12-30 13:15] LABS: Zinc, Serum 67 ug/dL (60-130)
[2023-12-30] MEDS: PHENYTOIN SODIUM INJ 1,000 MG in SODIUM CHLORIDE 0.9% 100 ML IVPB STA (15:54)
[2023-12-30] MEDS: OXcarbazepine 150 MG TAB PO SCH (21:44)
--- NOTE | 2023-12-30 23:07 | P.PN ---
Subjective Progress Note Date: 12/30/23 Patient was seen for a follow-up. Patient apparently had no seizure activity overnight, but she just had a seizure that last under 20 minutes. Staff noted the seizure on the monitor technician and gave 1 mg of Ativan and it took 4 minutes to bring the seizure to an end. She is lethargic but arousable. I recommended to increase Trileptal to 450 mg twice daily and give an extra 1 in 50 mg stat. Patient was quite lethargic and it will be given when patient is more awake. Apparently at around 12 noon, patient had another seizure, which lasted for about 8 minutes. She was given Ativan 1 mg again for the seizure which aborted it. Patient then had the third seizure at 2:44 PM lasted 5 minutes. Patient was given Dilantin 1 g IVPB. Patient had another seizure that lasted around 5 minutes. At that time Dilantin infusion has just completed. Probably it was not in the system yet. Patient at present is somnolent likely from Ativan, as well as probably from postictal effect. Objective - Vital Signs Vital signs: Vital Signs Temp 97.8 F 12/30/23 16:00 Pulse 74 12/30/23 19:00 Resp 12 12/30/23 19:00 BP 128/74 12/30/23 19:00 Pulse Ox 98 12/30/23 19:00 FiO2 Intake & Output 12/30/23 12/30/23 12/31/23 06:59 18:59 06:59 Intake Total 120 280 Output Total 0 400 0 Balance 120 -120 0 Weight 81.5 kg Intake: IV 100 Phenytoin Sodium Inj 1, 100 000 mg In Sodium Chloride 0.9% 100 ml @ 200 mls/hr IVPB ONCE STA Rx#: [id number] Oral 120 180 Output: Urine 0 400 0 Other: Voiding Method Bedpan Bedside Commode # Voids 1 # Bowel Movements 1 - Exam Patient is a middle aged female, somewhat somnolent, but not in any distress. Detailed examination deferred, as patient is somnolent at this time. She does wake up, and answers appropriately and follows directions. - Labs CBC & Chem 7: 12/30/23 04:16 12/30/23 04:16 Labs: Abnormal Lab Results - Last 24 Hours (Table) 12/29/23 12/30/23 12/30/23 Range/Units 05:33 04:16 04:16 RBC 3.46 L (3.80-5.40) m/uL Hgb 10.1 L (11.4-16.0) gm/dL Hct 31.8 L (34.0-46.0) % Glucose 72 L (74-99) mg/dL Calcium 8.2 L (8.4-10.2) mg/dL Copper 723 L (810-1990) ug/L Assessment and Plan Assessment: * Seizure disorder, came with status epilepticus. Patient apparently had ran out of her Depakote and missed 4 doses before she had recurrent seizures. Patient continues to have almost 1 seizure a day. Not in status epilepticus. Today patient had 3-4 seizures. Each of them lasting for several minutes. * Seizure disorder, for last 2 years since she received flu and COVID shots. * Metabolic encephalopathy with evidence of myoclonic jerks * Hyperammonemia, likely due to Depakote therapy * History of gastric bypass 2017 * Depression, anxiety * Marijuana use Plan: * Patient has had multiple seizures today. The dose of Trileptal was increased to 450 mg twice daily. We will give Dilantin 1 g IVPB x 1 dose to stop the seizures, until Trileptal becomes effective. * Trileptal increased to 450 mg twice daily. Watch for rash. * Continue Vimpat 150 mg 3 times daily and Depakote 1000 mg twice daily for now. * EEG was performed, which was abnormal EEG due to recording of an electrographic seizure, started with focal sharp waves involving the left temporal region and involving to high amplitude rhythmic delta over the left temporal region that lasted for 7 minutes, aborted with 1 mg of Ativan. This is suggestive of focal irritative lesion with tendency for focal onset seizure. There was also presence of frontal intermittent rhythmic delta activity, which may suggest underlying encephalopathy or convulsive tendency. * Depakote level is 72.4, which is therapeutic. Ammonia is 67, likely related to use of Depakote. Repeat ammonia is 44 improved. We may have to taper off Depakote. Patient has never tried Lamictal or Trileptal. Patient started on Trileptal 150 mg twice daily. * B12 501, folate 13.3, both normal * Patient has previously developed side effects from Keppra, therefore cannot be tried. She had some questionable side effect from Dilantin in the past, but was not an allergy. We will give short-term Dilantin at this time. * Patient may have to be tapered off Depakote because of high ammonia. * DVT prophylaxis: Start heparin 5000 subcu every 8 hours. * Dr. Sonja Ramos to cover neurology service over the weekend and then Dr. Nieves will start from Tuesday.
--- NOTE | 2023-12-31 03:40 | XR ---
EXAM: XR Chest, 1 View CLINICAL HISTORY: ITS.REASON XR Reason: NG TUBE PLACEMENT TECHNIQUE: Frontal view of the chest. COMPARISON: X-ray chest: 12/26/2023 FINDINGS: NG tube extends into the gastric fundus, is about 180 rotated, tip projecting upwards towards the GE junction. This needs to be corrected prior to its use. Lungs: Underexpanded lungs. An elevated right hemidiaphragm. No consolidation or pleural effusion. No pneumothorax. Heart: Unremarkable. No cardiomegaly. Mediastinum: Cardiomegaly. Normal mediastinal contour. Bones/joints: Unremarkable. No acute fracture. IMPRESSION: A NG tube is suboptimally placed, its tip facing towards the GE junction after taking 180 turn within the gastric fundus. This needs to be corrected prior to its usage. Underexpanded lungs. No acute cardiopulmonary process. .
--- NOTE | 2023-12-31 03:42 | P.PN ---
Subjective Progress Note Date: 12/30/23 This is a pleasant 48-year-old female who was recently admitted for recurrent seizures with history of seizures. Patient follows with Dr. Galeano in the outpatient setting although reports running out of medications. Patient's family at the bedside as patient continues to report significant headache and dizziness and lightheadedness. Patient did strike her head and fall flat on her face when having a seizure prior to admission. Patient mentation is improved although patient is severely depressed. Patient with neurology following undergoing further workup. Will add meclizine and supportive care for the headache. Recommend increased activity as tolerated. Patient is a transfer out of the ICU once a bed becomes available. 12/28/2023 Patient is seen in follow-up today initially seizure-free although upon exam patient was having another seizure that was witnessed by nursing staff and improved after Ativan administration. Neurology following undergoing further workup including EEG and medication adjustments. Psychiatry also consulted and pending as patient is severely depressed. Patient afebrile and otherwise stable and was being considered for transfer out of the ICU. No bed available at this time. Continue with seizure precautions and monitor for any further seizure activity 12/29/2023 Patient is seen in follow-up currently transferred out of the ICU early this morning and on exam patient is actively seizing and appears status. Patient will be going back to the ICU and discussing further with neurology regarding possible transfer for tertiary treatment. Medications being adjusted per neurology and will discuss further. Patient was evaluated by psychiatry making adjustments to medications and does not meet inpatient criteria recommending outpatient follow-up with counseling. 12/30/2023 Patient is seen and evaluated in the ICU this morning. Patient had multiple seizures requiring close monitoring. Medications being adjusted with neurology following closely and patient is maintained on Vimpat and also Trileptal. Discussion was had with neurology regarding possible transfer to a tertiary center and for neurology/neurosurgery evaluation and close monitoring. Patient family is agreeable if necessary although would like to remain here if possible. Patient is afebrile and there has been no reported chest pain or shortness of breath. Continue seizure precautions and continue as needed Ativan. A.m. labs ordered. Monitor ammonia levels and use lactulose for now. Review of systems: Unable to completely assess as patient is postictal Active Medications Acetaminophen/Codeine Phosphate (Acetaminophen-Codeine 300-30mg Tab) 1 each PO Q6HR PRN PRN Reason: Pain Hydrocodone Bitart/Acetaminophen (Hydrocodone/Apap 10-325mg 1 Each Tab) 1 each PO Q4H PRN PRN Reason: Pain Divalproex Sodium (Divalproex 500 Mg Tablet.Dr) 1,000 mg PO BID [facility] Last Admin: 12/30/23 21:43 Dose: 1,000 mg Folic Acid (Folic Acid 1 Mg Tab) 1 mg PO DAILY@1200 [facility] Last Admin: 12/30/23 12:36 Dose: 1 mg Heparin Sodium (Porcine) (Heparin Sodium,Porcine 5,000 Unit/Ml 1 Ml Vial) 5,000 unit SQ Q8HR [facility] Last Admin: 12/31/23 00:20 Dose: 5,000 unit Hydroxyzine HCl (Hydroxyzine Hcl 25 Mg Tab) 25 mg PO QID PRN PRN Reason: Anxiety Lacosamide (Lacosamide 50 Mg Tablet) 150 mg PO TID [facility] Last Admin: 12/30/23 21:43 Dose: 150 mg Lactulose (Lactulose 20 Gm/30 Ml Cup) 20 gm PO BID [facility] Last Admin: 12/30/23 21:44 Dose: 20 gm Lorazepam (Lorazepam 2 Mg/Ml Inj) 1 mg IV Q5M PRN PRN Reason: Seizures Last Admin: 12/30/23 20:05 Dose: 1 mg Meclizine HCl (Meclizine 12.5 Mg Tab) 12.5 mg PO TID [facility] Last Admin: 12/30/23 21:43 Dose: 12.5 mg Melatonin (Melatonin 3 Mg Tablet) 6 mg PO HS PRN PRN Reason: insomnia Last Admin: 12/28/23 20:30 Dose: 6 mg Mirtazapine (Mirtazapine 15 Mg Tab) 15 mg PO HS [facility] Last Admin: 12/30/23 21:45 Dose: 15 mg Miscellaneous Information (Potassium Replacement Protocol 1 Each Misc) 1 each MISCELLANE DAILY PRN; Protocol PRN Reason: Per Protocol Multivitamins (Multivitamins, Thera 1 Each Tab) 1 each PO DAILY@1200 [facility] Last Admin: 12/30/23 12:36 Dose: 1 each Naloxone HCl (Naloxone 0.4 Mg/Ml 1 Ml Vial) 0.2 mg IV Q2M PRN PRN Reason: Opioid Reversal Ondansetron HCl (Ondansetron 4 Mg/2 Ml Vial) 4 mg IVP Q6HR PRN PRN Reason: Nausea And Vomiting Last Admin: 12/30/23 22:43 Dose: 4 mg Oxcarbazepine (Oxcarbazepine 150 Mg Tab) 450 mg PO BID [facility] Last Admin: 12/30/23 21:44 Dose: 450 mg Sertraline HCl (Sertraline 50 Mg Tab) 50 mg PO DAILY [facility] Last Admin: 12/30/23 09:17 Dose: 50 mg Thiamine HCl (Thiamine 100 Mg Tab) 100 mg PO DAILY@1200 [facility] Last Admin: 12/30/23 12:36 Dose: 100 mg PHYSICAL EXAMINATION: GENERAL: The patient is alert and oriented x1, postictal, will arouse although fall back asleep, well developed, appears older than stated age, ill-appearing HEENT: Pupils are round and equally reacting to light. EOMI. no scleral icterus. No conjunctival pallor. Normocephalic, atraumatic. No pharyngeal erythema. No thyromegaly. CARDIOVASCULAR: S1 and S2 muffled, tachy PULMONARY: diminished breath sounds bilaterally with no wheezing or rhonchi noted. ABDOMEN: soft. Nontender on exam. obese. non-distended, normoactive bowel sounds. No palpable organomegaly. MUSCULOSKELETAL: No joint swelling or deformity. EXTREMITIES: No cyanosis, clubbing, or pedal edema. NEUROLOGICAL: Gross neurological examination did not reveal any focal deficits. Diffuse weakness SKIN: No rashes. Assessment: Acute seizure disorder with breakthrough seizures Change in mental status, metabolic encephalopathy, possible cerebral concussion as patient did strike her head on seizure at home Gastroesophageal reflux disease Hyperammonemia, possibly secondary to seizure medications History of migraines History of gastric sleeve surgery Anxiety and depression GI prophylaxis DVT prophylaxis Full code Plan: Recommend to continue with current medications and management with neurology following. Patient was transferred back to the ICU yesterday for continued seizure activity. Neurology following closely making adjustments to medications and Trileptal is being increased and is maintained on Vimpat. Discussed further regarding possible Dilantin and will be given a dose. Discussed further with neurology regarding transfer for tertiary treatment and further discussion was had and will continue to monitor closely here as patient seizures are focal and not status at this time. Patient does have as needed Ativan. Ammonia was elevated possibly secondary to Depakote and is maintained on lactulose showing some improvements. Will follow-up with repeat ammonia level Patient to continue in the ICU for now as patient continues to have seizures with 2 this morning thus far. Continue current regimen and adjusting medications per neurology Patient evaluated by psychiatry making adjustments to medications recommending outpatient follow-up with [facility] and counseling. Patient does not meet inpatient criteria for psychiatry Recommend PT/OT therapy evaluation and encouraged to increase activity as tolerated. Continue seizure precautions Encourage sitting up more frequently Will discuss further with neurology regarding possible need for transfer if seizures persist. Discussed with at the bedside in great detail regarding overall prognosis and treatment plan moving forward. Questions and concerns were answered to the best of our ability. Overall prognosis is extremely guarded The impression and plan of care has been dictated by Lisa Choudhury, nurse practitioner as directed. Dr. Heriberto MD I have performed a history and examination and MDM of this patient, discussed the same with the dictator, and agree with the dictator's assessment and plan as written ,documented as a scribe. Based on total visit time, I have performed more than 50% of the visit. Any additional findings or plans will be noted. Objective - Vital Signs Vital signs: Vital Signs Temp 97.9 F 12/31/23 00:00 Pulse 70 12/31/23 01:00 Resp 17 12/31/23 01:00 BP 135/95 12/31/23 01:00 Pulse Ox 100 12/31/23 01:00 FiO2 Intake & Output 12/30/23 12/30/23 12/31/23 06:59 18:59 06:59 Intake Total 120 280 30 Output Total 0 400 50 Balance 120 -120 -20 Weight 81.5 kg 79 kg Intake: IV 100 30 0.9% NS KVO 30 Phenytoin Sodium Inj 1, 100 000 mg In Sodium Chloride 0.9% 100 ml @ 200 mls/hr IVPB ONCE STA Rx#: [id number] Oral 120 180 Output: Urine 0 400 0 Emesis 50 Other: Voiding Method Bedpan Bedside Commode Bedpan # Voids 1 1 # Bowel Movements 1 - Labs CBC & Chem 7: 12/30/23 04:16 12/30/23 04:16 Labs: Abnormal Lab Results - Last 24 Hours (Table) 12/29/23 12/30/23 12/30/23 Range/Units 05:33 04:16 04:16 RBC 3.46 L (3.80-5.40) m/uL Hgb 10.1 L (11.4-16.0) gm/dL Hct 31.8 L (34.0-46.0) % Glucose 72 L (74-99) mg/dL Calcium 8.2 L (8.4-10.2) mg/dL Copper 723 L (810-1990) ug/L
[2023-12-31 05:50] LABS: Basophils % (A) 0 %; Eosinophils # (A) 0.1 k/uL (0-0.7); Eosinophils % (A) 1 %; HCT 33.7 % (34.0-46.0); HGB 10.7 gm/dL (11.4-16.0); Hypochromasia Slight; Lymphocytes # (A) 0.9 k/uL (1.0-4.8); Lymphocytes % (A) 16 %; MCH 29.1 pg (25.0-35.0); MCHC 31.7 g/dL (31.0-37.0); MCV 91.8 fL (80.0-100.0); Monocytes # (A) 0.4 k/uL (0-1.0); Monocytes % (A) 7 %; Neutrophils # (A) 4.5 k/uL (1.3-7.7); Neutrophils % (A) 76 %; Platelet Count 190 k/uL (150-450); RBC 3.68 m/uL (3.80-5.40); RDW 15.2 % (11.5-15.5)
[2023-12-31 06:30] LABS: ALT 10 U/L (4-34); AST 16 U/L (14-36); African American GFR (CKD) >90 (>60 ml/min/1.73 sqM); Albumin 3.4 g/dL (3.5-5.0); Alkaline Phosphatase 53 U/L (38-126); Anion Gap 5 mmol/L; Blood Urea Nitrogen 14 mg/dL (7-17); Calcium 8.5 mg/dL (8.4-10.2); Carbon Dioxide 30 mmol/L (22-30); Chloride 103 mmol/L (98-107); Glucose 89 mg/dL (74-99); Magnesium 1.5 mg/dL (1.6-2.3); Non-African American GFR(CKD) >90 (>60 ml/min/1.73 sqM); Potassium 4.3 mmol/L (3.5-5.1); Sodium 138 mmol/L (137-145); Total Bilirubin 0.2 mg/dL (0.2-1.3); Total Protein 5.9 g/dL (6.3-8.2)
[2023-12-31] MEDS ORDERED: Magnesium Replacement Protocol 1 EACH MISC MISCELLANE PRN (06:56)
[2023-12-31] MEDS: MAGNESIUM SULFATE-D5W PMX 1 GM in DEXTROSE/WATER 1 100ML.BAG IVPB SCH (07:09)
--- NOTE | 2023-12-31 11:27 | P.PN ---
Subjective Progress Note Date: 12/31/23 Principal diagnosis: Status epilepticus This is a 48-year-old female with history of seizure disorder for the last 2 years, patient is maintained on seizure medications, however the patient ran out of her seizure meds, and she went on to develop recurrent seizures. Patient is normally on Depakote, and she follows up with Dr. Cervantes/neurologist. Patient had couple of short seizures en route to the hospital, and she had couple more seizures while in the ER. Patient received Ativan with improvement and she was also placed on Depakote and on Vimpat. Considering her postictal phase and recurrent seizures I was notified about this patient from the ER physician/Dr. Holt, and I admitted the patient to the ICU. No seizures overnight. Patient seems to be doing quite well today. Not in any distress. CT brain was unremarkable. Chest x-ray showed no evidence of pneumonia and no acute process. Labs today showed relatively normal CBC hemoglobin is 10.4 relatively normal electrolytes and normal renal profile. Valproic acid level yesterday was 21, subtherapeutic Patient seen today on 12/28/2023, patient remains in the ICU as an overflow. No seizure activity in the last 24 hours, reviewed the results of her EEG, patient remains seizure-free, she is on Depakote and Vimpat. Being followed by neurology, her workup has been all noted including the EEG findings showing seizure focus. Plan is to transfer the patient out of the ICU to regular medical floor or could even consider discharging the patient home if cleared by neurology labs today including CBC and basic metabolic profile are normal and clinically the patient is doing well and stable Patient was seen today on 12/29/2023, she was on the medical floor earlier today when I saw her, however shortly after I saw the patient apparently had multiple seizures requiring Ativan. Patient was sent back to the ICU today and she is to be seen by neurology for follow-up on her seizure disorder. Patient has been seen by Dr. Valdez all along since admission, patient is on Depakote, she is also on Trileptal, and on Vimpat. CBC is basically unremarkable basic metabolic profile is normal Patient was today on 12/30/2023, patient was transferred back to the ICU yesterday mostly because she went on to develop recurrent seizures/status epilepticus, seen by neurology, and she had already treatment with Depakote Vimpat and Trileptal. No seizure activity overnight, patient is doing well today, does not seem to be in any distress, neurology is following. But again no seizure activity in the last 12 hours. WBC is 5.3 hemoglobin 10.1 basic metabolic profile is normal renal profile is normal blood sugar is 72. Patient today on 12/31/2023, patient remains in the ICU, she had 1 seizure last night lasted 1 minute, responded to Ativan. Last night the patient had multiple episodes of emesis, the emesis was so frequent hence the patient had a nasogastric tube. In place, and she received Zofran. Chest x-ray today showed minimal left basilar atelectasis, no evidence of aspiration pneumonia. Patient is quite lethargic, however she is arousable, she is appropriate and she knows where she is and the year. Patient does not seem to be in any distress. Patient is being followed by neurology for her poorly controlled seizures in spite of maximal therapy with Trileptal, Vimpat, and Depakote. WBC count today is 6.0 hemoglobin 10.7. Electrolytes are normal renal profile is normal. Objective - Vital Signs Vital signs: Vital Signs Temp 99.1 F 12/31/23 08:00 Pulse 75 12/31/23 11:00 Resp 15 12/31/23 11:00 BP 161/101 12/31/23 11:00 Pulse Ox 98 12/31/23 11:00 FiO2 Intake & Output 12/30/23 12/31/23 12/31/23 18:59 06:59 18:59 Intake Total 280 55 30 Output Total 400 50 0 Balance -120 5 30 Weight 79 kg Intake: IV 100 55 30 0.9% NS KVO 55 30 Phenytoin Sodium Inj 1, 100 000 mg In Sodium Chloride 0.9% 100 ml @ 200 mls/hr IVPB ONCE STA Rx#: [id number] Oral 180 Output: Urine 400 0 0 Emesis 50 Other: Voiding Method Bedside Commode Bedpan Bedpan # Voids 1 1 # Bowel Movements 1 - Exam General: Revealed 48-year-old female in no distress, on room air Skin: Skin is warm and dry and no rashes or lesions are noted. Eye: Pupils are equal, round and reactive to light, extra-ocular movements are intact; there is normal conjunctiva bilaterally. Ears, nose, mouth and throat: There are moist mucous membranes and no oral lesions. Nasogastric tube is in place. On low intermittent suction Neck: The neck is supple, there is no tenderness or JVD. Cardiovascular: There is a regular rate and rhythm. No murmur, rub or gallop is appreciated. Respiratory: Clear bilaterally no crackles rhonchi or wheezes Gastrointestinal: Soft, non-distended, non-tender abdomen without masses or organomegaly noted. There is no rebound or guarding present. Bowel sounds are unremarkable. Back: There is no tenderness to palpation in the midline. There is no obvious deformity. Musculoskeletal: Normal ROM, no tenderness, There is no pedal edema. There is no calf tenderness or swelling. No cords were appreciated. Neurological: Lethargic but arousable, follows instructions Psychiatric: Cooperative, lethargic ,normal judgment. - Labs CBC & Chem 7: 12/31/23 05:30 12/31/23 05:30 Labs: Abnormal Lab Results - Last 24 Hours (Table) 12/29/23 12/31/23 12/31/23 Range/Units 05:33 05:30 05:30 RBC 3.68 L (3.80-5.40) m/uL Hgb 10.7 L (11.4-16.0) gm/dL Hct 33.7 L (34.0-46.0) % Lymphocytes # 0.9 L (1.0-4.8) k/uL Magnesium 1.5 L (1.6-2.3) mg/dL Total Protein 5.9 L (6.3-8.2) g/dL Albumin 3.4 L (3.5-5.0) g/dL Copper 723 L (810-1990) ug/L Assessment and Plan Assessment: Impression: Status epilepticus, maintained on Trileptal, Vimpat, and Depakote Postictal altered mental status History of seizure disorder History of GERD without esophagitis History of migraine cephalgia History of depression and anxiety Chronic pain syndrome Recurrent emesis Recommendation: To monitor in the ICU Continue nasogastric tube in place for her hyperemesis Continue present seizure medications Continue seizure precautions Neurology is following regarding her seizures Will continue to follow Time with Patient: Less than 30
--- NOTE | 2023-12-31 13:29 | P.PN ---
Subjective Progress Note Date: 12/31/23 The patient is a 48-year-old female who is seen in neurologic follow-up on December 31, 2023, in collaboration with Iwona Wooten, via teleneurology. According to the nurse who is present at the patient's bedside at the time of the evaluation, the patient's most recent seizure occurred at about 11:30 PM last night. She did receive 1 mg of Ativan. In addition, she received Haiku at about 5 AM. This morning, the patient is quite lethargic. There have been no reported seizures this morning. The patient's chart has been reviewed. She was recently started on Trileptal for better seizure control. Objective - Vital Signs Vital signs: Vital Signs Temp 100.3 F H 12/31/23 04:00 Pulse 72 12/31/23 07:00 Resp 15 12/31/23 07:00 BP 152/91 12/31/23 07:00 Pulse Ox 97 12/31/23 07:00 FiO2 Intake & Output 12/30/23 12/31/23 12/31/23 18:59 06:59 18:59 Intake Total 280 55 5 Output Total 400 50 0 Balance -120 5 5 Weight 79 kg Intake: IV 100 55 5 0.9% NS KVO 55 5 Phenytoin Sodium Inj 1, 100 000 mg In Sodium Chloride 0.9% 100 ml @ 200 mls/hr IVPB ONCE STA Rx#: [id number] Oral 180 Output: Urine 400 0 0 Emesis 50 Other: Voiding Method Bedside Commode Bedpan # Voids 1 1 # Bowel Movements 1 - Exam General: The patient is reclining in the bed. She is well-nourished. She is in no acute distress. Neurological Mental status: The patient is somewhat difficult to arouse. She does awaken and follow instructions. Her speech is clear. Cranial nerves: 2-12 are grossly intact. Pupils are equal at 3 mm and reactive Motor: Upper extremity strength is 4/5. Bilateral hip flexors 4/5. Bilateral ankle plantar and dorsiflexors 5/5. Coordination: Patient has a tremor of the bilateral upper extremities. There appears to be a component of asterixis. There is also noted to be a tremor of the head. Deep tendon reflexes: 2+/4+ in the upper extremities. 1+/4+ at the knees. - Labs CBC & Chem 7: 12/31/23 05:30 12/31/23 05:30 Labs: Abnormal Lab Results - Last 24 Hours (Table) 12/29/23 12/31/23 12/31/23 Range/Units 05:33 05:30 05:30 RBC 3.68 L (3.80-5.40) m/uL Hgb 10.7 L (11.4-16.0) gm/dL Hct 33.7 L (34.0-46.0) % Lymphocytes # 0.9 L (1.0-4.8) k/uL Magnesium 1.5 L (1.6-2.3) mg/dL Total Protein 5.9 L (6.3-8.2) g/dL Albumin 3.4 L (3.5-5.0) g/dL Copper 723 L (810-1990) ug/L Assessment and Plan Assessment: Seizure disorder, came with status epilepticus. Patient apparently had ran out of her Depakote and missed 4 doses before she had recurrent seizures. * Reported seizure disorder, for last 2 years since she received flu and COVID shots. * Metabolic encephalopathy with evidence of myoclonic jerks * Hyperammonemia, likely due to Depakote therapy * History of gastric bypass 2018 * Depression, anxiety * Marijuana use Plan: * The dose of Trileptal was increased to 450 mg twice daily. Dilantin 1 g IVPB x 1 dose to stop the seizures, until Trileptal becomes effective. * Trileptal increased to 450 mg twice daily. Watch for rash. * Continue Vimpat 150 mg 3 times daily and Depakote 1000 mg twice daily for now. * EEG was performed, which was abnormal EEG due to recording of an electrographic seizure, started with focal sharp waves involving the left temporal region and involving to high amplitude rhythmic delta over the left temporal region that lasted for 7 minutes, aborted with 1 mg of Ativan. This is suggestive of focal irritative lesion with tendency for focal onset seizure. There was also presence of frontal intermittent rhythmic delta activity, which may suggest underlying encephalopathy or convulsive tendency. * Depakote level is 72.4, which is therapeutic. Ammonia is 67, likely related to use of Depakote. Repeat ammonia is 44 improved. We may have to taper off Depakote. Patient has never tried Lamictal or Trileptal. Patient started on Trileptal 150 mg twice daily. * Patient may have to be tapered off Depakote because of high ammonia. * DVT prophylaxis: Start heparin 5000 subcu every 8 hours. * As needed Ativan order has been adjusted to 1 mg IV push for seizure lasting longer than 2 minutes. The patient is quite lethargic and so will attempt to limit Ativan Time with Patient: Greater than 30 (35 minutes were spent caring for this patient today including, obtaining a history, examining the patient, reviewing imaging, chart documentation, labs, placing orders and creating this note)
[2023-12-31] MEDS: HYDROcodone/APAP 10-325MG 1 EACH TAB PO PRN (14:54)
[2023-12-31] MEDS: Acetaminophen-Codeine 300-30mg TAB PO PRN (16:28)
--- NOTE | 2024-01-01 02:48 | PN ---
PROGRESS NOTE DATE OF SERVICE: 12/31/2023 SUBJECTIVE: This is a 48-year-old woman, who was admitted with recurrent seizures, is being closely monitored. Neurology has adjusted the medications. The patient is rather drowsy at this time. The patient is being closely monitored. No chest pain. No palpitation. OBJECTIVE: VITAL SIGNS: Pulse is 83, blood pressure 140/90, respirations 13. CHEST: A few scattered rhonchi. ABDOMEN: Soft. NERVOUS SYSTEM: Diffusely weak. LABORATORY DATA: Reviewed. ASSESSMENT: 1. Acute seizures with breakthrough seizures multiple. 2. History of change in mental status, metabolic encephalopathy. 3. Gastroesophageal reflux disease. 4. Hyperammonemia. 5. History of migraine. 6. Multiple complex medical issues. RECOMMENDATIONS AND DISCUSSION: Recommend to continue current management and continue symptomatic treatment. Otherwise, continue with antiplatelet medications and follow closely with Neurology. Guarded prognosis. Further recommendations to follow. See orders for further details. MMODL / IJN: [id number] /
[2024-01-01 06:16] LABS: Basophils % (A) 0 %; Eosinophils # (A) 0.1 k/uL (0-0.7); Eosinophils % (A) 2 %; HCT 32.2 % (34.0-46.0); HGB 10.1 gm/dL (11.4-16.0); Hypochromasia Moderate; Lymphocytes # (A) 2.8 k/uL (1.0-4.8); Lymphocytes % (A) 48 %; MCH 28.7 pg (25.0-35.0); MCHC 31.2 g/dL (31.0-37.0); Mean Platelet Volume 6.5; Monocytes # (A) 0.5 k/uL (0-1.0); Monocytes % (A) 9 %; Neutrophils # (A) 2.3 k/uL (1.3-7.7); Neutrophils % (A) 39 %; Platelet Count 168 k/uL (150-450); WBC 5.9 k/uL (3.8-10.6)
[2024-01-01 06:30] LABS: African American GFR (CKD) >90 (>60 ml/min/1.73 sqM); Anion Gap 1 mmol/L; Blood Urea Nitrogen 13 mg/dL (7-17); Calcium 8.2 mg/dL (8.4-10.2); Carbon Dioxide 31 mmol/L (22-30); Chloride 103 mmol/L (98-107); Glucose 76 mg/dL (74-99); Magnesium 1.8 mg/dL (1.6-2.3); Non-African American GFR(CKD) 82 (>60 ml/min/1.73 sqM); Potassium 3.8 mmol/L (3.5-5.1); Sodium 135 mmol/L (137-145)
[2024-01-01] MEDS: MAGNESIUM SULFATE-D5W PMX 1 GM in DEXTROSE/WATER 1 100ML.BAG IVPB ONE (07:16)
--- NOTE | 2024-01-01 07:51 | XR ---
EXAMINATION TYPE: XR chest 1V portable DATE OF EXAM: 01/01/2024 6:33 AM COMPARISON: None. CLINICAL INDICATION: Female, 48 years old with history of chf, TECHNIQUE: XR chest 1V portable view(s) obtained. FINDINGS: The heart size is normal. The pulmonary vasculature is normal. The lungs are clear. Nasogastric tube is been removed. IMPRESSION: 1. No acute pulmonary process. [facility], , 01/01/2024 7:49 AM
[2024-01-01] MEDS: POTASSIUM BICARBONATE/CIT AC 20 MEQ TABLET.EFF NG-TUBE SCH (08:39)
--- NOTE | 2024-01-01 10:29 | P.PN ---
Subjective Progress Note Date: 01/01/24 Principal diagnosis: Status epilepticus This is a 48-year-old female with history of seizure disorder for the last 2 years, patient is maintained on seizure medications, however the patient ran out of her seizure meds, and she went on to develop recurrent seizures. Patient is normally on Depakote, and she follows up with Dr. Cervantes/neurologist. Patient had couple of short seizures en route to the hospital, and she had couple more seizures while in the ER. Patient received Ativan with improvement and she was also placed on Depakote and on Vimpat. Considering her postictal phase and recurrent seizures I was notified about this patient from the ER physician/Dr. Holt, and I admitted the patient to the ICU. No seizures overnight. Patient seems to be doing quite well today. Not in any distress. CT brain was unremarkable. Chest x-ray showed no evidence of pneumonia and no acute process. Labs today showed relatively normal CBC hemoglobin is 10.4 relatively normal electrolytes and normal renal profile. Valproic acid level yesterday was 21, subtherapeutic Patient seen today on 12/28/2023, patient remains in the ICU as an overflow. No seizure activity in the last 24 hours, reviewed the results of her EEG, patient remains seizure-free, she is on Depakote and Vimpat. Being followed by neurology, her workup has been all noted including the EEG findings showing seizure focus. Plan is to transfer the patient out of the ICU to regular medical floor or could even consider discharging the patient home if cleared by neurology labs today including CBC and basic metabolic profile are normal and clinically the patient is doing well and stable Patient was seen today on 12/29/2023, she was on the medical floor earlier today when I saw her, however shortly after I saw the patient apparently had multiple seizures requiring Ativan. Patient was sent back to the ICU today and she is to be seen by neurology for follow-up on her seizure disorder. Patient has been seen by Dr. Valdez all along since admission, patient is on Depakote, she is also on Trileptal, and on Vimpat. CBC is basically unremarkable basic metabolic profile is normal Patient was today on 12/30/2023, patient was transferred back to the ICU yesterday mostly because she went on to develop recurrent seizures/status epilepticus, seen by neurology, and she had already treatment with Depakote Vimpat and Trileptal. No seizure activity overnight, patient is doing well today, does not seem to be in any distress, neurology is following. But again no seizure activity in the last 12 hours. WBC is 5.3 hemoglobin 10.1 basic metabolic profile is normal renal profile is normal blood sugar is 72. Patient today on 12/31/2023, patient remains in the ICU, she had 1 seizure last night lasted 1 minute, responded to Ativan. Last night the patient had multiple episodes of emesis, the emesis was so frequent hence the patient had a nasogastric tube. In place, and she received Zofran. Chest x-ray today showed minimal left basilar atelectasis, no evidence of aspiration pneumonia. Patient is quite lethargic, however she is arousable, she is appropriate and she knows where she is and the year. Patient does not seem to be in any distress. Patient is being followed by neurology for her poorly controlled seizures in spite of maximal therapy with Trileptal, Vimpat, and Depakote. WBC count today is 6.0 hemoglobin 10.7. Electrolytes are normal renal profile is normal. Patient was evaluated today on 01/01/2024, remains in the ICU, no seizure activity over the last 24 hours. Patient remains on Depakote, Vimpat, Trileptal, her GI symptoms/nausea and vomiting have resolved, patient pulled out her nasogastric tube. Today she seems to be doing quite well, and she is more awake, and more appropriate. Labs showed relatively normal CBC and normal electrolytes. WBC count is 5.9 hemoglobin is 10 electrolytes are normal renal profile is normal Objective - Vital Signs Vital signs: Vital Signs Temp 98.3 F 01/01/24 08:00 Pulse 63 01/01/24 10:00 Resp 18 01/01/24 10:00 BP 100/71 01/01/24 10:00 Pulse Ox 97 01/01/24 10:00 FiO2 Intake & Output 12/31/23 01/01/24 01/01/24 18:59 06:59 18:59 Intake Total 40 625 340 Output Total 100 Balance -60 625 340 Weight 78.6 kg Intake: IV 40 0 0 0.9% NS KVO 40 0 0 Intake, IV Titration 100 Amount Magnesium Sulfate-D5w Pmx 100 1 gm In Dextrose/Water 1 100ml.bag @ 100 mls/hr IVPB ONCE ONE Rx#: [id number] Oral 625 240 Output: Urine 100 Other: Voiding Method Bedpan # Voids 0 0 1 # Bowel Movements 0 0 - Exam General: Revealed 48-year-old female in no distress, on room air Skin: Skin is warm and dry and no rashes or lesions are noted. Eye: Pupils are equal, round and reactive to light, extra-ocular movements are intact; there is normal conjunctiva bilaterally. Ears, nose, mouth and throat: There are moist mucous membranes and no oral lesions. Nasogastric tube is in place. On low intermittent suction Neck: The neck is supple, there is no tenderness or JVD. Cardiovascular: There is a regular rate and rhythm. No murmur, rub or gallop is appreciated. Respiratory: Clear bilaterally no crackles rhonchi or wheezes Gastrointestinal: Soft, non-distended, non-tender abdomen without masses or organomegaly noted. There is no rebound or guarding present. Bowel sounds are unremarkable. Back: There is no tenderness to palpation in the midline. There is no obvious deformity. Musculoskeletal: Normal ROM, no tenderness, There is no pedal edema. There is no calf tenderness or swelling. No cords were appreciated. Neurological: Alert and oriented x 3 no gross focal neurologic deficit Psychiatric: Normal mood affect and normal mental status examination - Labs CBC & Chem 7: 01/01/24 05:32 01/01/24 05:32 Labs: Abnormal Lab Results - Last 24 Hours (Table) 01/01/24 01/01/24 Range/Units 05:32 05:32 RBC 3.50 L (3.80-5.40) m/uL Hgb 10.1 L (11.4-16.0) gm/dL Hct 32.2 L (34.0-46.0) % Sodium 135 L (137-145) mmol/L Carbon Dioxide 31 H (22-30) mmol/L Calcium 8.2 L (8.4-10.2) mg/dL Assessment and Plan Assessment: Impression: Status epilepticus, maintained on Trileptal, Vimpat, and Depakote Postictal altered mental status History of seizure disorder History of GERD without esophagitis History of migraine cephalgia History of depression and anxiety Chronic pain syndrome Recurrent emesis Recommendation: To monitor in the ICU, until cleared by neurology to send to medical surgical floor Continue present seizure medications Continue seizure precautions Neurology is following regarding her seizures Will continue to follow, while in ICU Time with Patient: Less than 30
--- NOTE | 2024-01-01 13:41 | P.PN ---
Subjective Progress Note Date: 01/01/24 The patient is a 48-year-old female who is seen in neurologic follow-up on January 01, 2024, in collaboration with Iwona Wooten, via teleneurology. The patient's chart has been reviewed. She was recently started on Trileptal for better seizure control. The patient's is present at the bedside at the time of evaluation today he reports that his is doing much better today she has been awake and talking to him. She also reportedly had breakfast. The patient herself says that she is tired because she did not sleep well secondary to being awakened by nursing staff. Objective - Vital Signs Vital signs: Vital Signs Temp 98.3 F 01/01/24 08:00 Pulse 63 01/01/24 10:00 Resp 18 01/01/24 10:00 BP 100/71 01/01/24 10:00 Pulse Ox 97 01/01/24 10:00 FiO2 Intake & Output 12/31/23 01/01/24 01/01/24 18:59 06:59 18:59 Intake Total 40 625 340 Output Total 100 Balance -60 625 340 Weight 78.6 kg Intake: IV 40 0 0 0.9% NS KVO 40 0 0 Intake, IV Titration 100 Amount Magnesium Sulfate-D5w Pmx 100 1 gm In Dextrose/Water 1 100ml.bag @ 100 mls/hr IVPB ONCE ONE Rx#: [id number] Oral 625 240 Output: Urine 100 Other: Voiding Method Bedpan # Voids 0 0 1 # Bowel Movements 0 0 - Exam General: The patient is reclining in the bed. She is well-nourished. She is in no acute distress. Neurological Mental status: The patient is somewhat difficult to arouse. She does awaken and follow instructions. Her speech is clear. Cranial nerves: 2-12 are grossly intact. Pupils are equal at 3 mm and reactive Motor: Upper extremity strength is 5/5. Right hip flexor 4/5. Bilateral ankle plantar and dorsiflexors 5/5. - Labs CBC & Chem 7: 01/01/24 05:32 01/01/24 05:32 Labs: Abnormal Lab Results - Last 24 Hours (Table) 01/01/24 01/01/24 Range/Units 05:32 05:32 RBC 3.50 L (3.80-5.40) m/uL Hgb 10.1 L (11.4-16.0) gm/dL Hct 32.2 L (34.0-46.0) % Sodium 135 L (137-145) mmol/L Carbon Dioxide 31 H (22-30) mmol/L Calcium 8.2 L (8.4-10.2) mg/dL Assessment and Plan Assessment: Seizure disorder, came with status epilepticus. Patient apparently had ran out of her Depakote and missed 4 doses before she had recurrent seizures. The patient has been seizure-free for more than 24 hours. She is neurologically stable. * Reported seizure disorder, for last 2 years since she received flu and COVID shots. * Metabolic encephalopathy with evidence of myoclonic jerks * Hyperammonemia, likely due to Depakote therapy * History of gastric bypass 2018 * Depression, anxiety * Marijuana use Plan: Patient is neurologically stable for transfer out of the intensive care unit * The dose of Trileptal was increased to 450 mg twice daily. Dilantin 1 g IVPB x 1 dose to stop the seizures, until Trileptal becomes effective. * Trileptal increased to 450 mg twice daily. Watch for rash. * Continue Vimpat 150 mg 3 times daily and Depakote 1000 mg twice daily for now. * EEG was performed, which was abnormal EEG due to recording of an electrographic seizure, started with focal sharp waves involving the left temporal region and involving to high amplitude rhythmic delta over the left temporal region that lasted for 7 minutes, aborted with 1 mg of Ativan. This is suggestive of focal irritative lesion with tendency for focal onset seizure. There was also presence of frontal intermittent rhythmic delta activity, which may suggest underlying encephalopathy or convulsive tendency. * Depakote level is 72.4, which is therapeutic. Ammonia is 67, likely related to use of Depakote. Repeat ammonia is 44 improved. We may have to taper off Depakote. Patient has never tried Lamictal or Trileptal. Patient started on Trileptal 150 mg twice daily. * Patient may have to be tapered off Depakote because of high ammonia. * DVT prophylaxis: Start heparin 5000 subcu every 8 hours. * As needed Ativan order has been adjusted to 1 mg IV push for seizure lasting longer than 2 minutes. The patient is quite lethargic and so will attempt to limit Ativan * The patient/ are advised to pay attention to the amount of Depakote that they have so as to not run out Time with Patient: Less than 30 (25 minutes were spent caring for this patient today including, obtaining interim history, examining the patient, reviewing labs and chart documentation)
[2024-01-01] MEDS: hydrOXYzine HCL 25 MG TAB PO PRN (22:45)
[2024-01-01] MEDS: LORazepam 2 MG/ML INJ IV PRN (22:53)
[2024-01-01 22:57] LABS: Glucose,Whole Blood 126 mg/dL (70-110)
[2024-01-01 23:40] LABS: African American GFR (CKD) >90 (>60 ml/min/1.73 sqM); Anion Gap 7 mmol/L; Blood Urea Nitrogen 17 mg/dL (7-17); Calcium 8.4 mg/dL (8.4-10.2); Carbon Dioxide 27 mmol/L (22-30); Chloride 102 mmol/L (98-107); Glucose 131 mg/dL (74-99); Magnesium 1.7 mg/dL (1.6-2.3); Non-African American GFR(CKD) >90 (>60 ml/min/1.73 sqM); Potassium 3.4 mmol/L (3.5-5.1); Sodium 136 mmol/L (137-145)
--- NOTE | 2024-01-02 | XR ---
EXAM: XR Chest, 1 View CLINICAL HISTORY: ITS.REASON XR Reason: r/o aspiration TECHNIQUE: Frontal view of the chest. COMPARISON: X-ray chest: 01/01/2024 at 0549 FINDINGS: Patient's body habitus limits the study. Lungs: Underexpanded lungs. No consolidation. Pleural space: Unremarkable. No pneumothorax. Heart: No cardiomegaly. Mediastinum: Right hilar soft tissue prominence. Normal mediastinal contour. Bones/joints: Unremarkable. No acute fracture. Other findings: Elevated diaphragm.. IMPRESSION: Low lung volumes. No consolidation, pulmonary vascular congestion or pleural effusion noted. .
[2024-01-02 03:20] LABS: Basophils % (A) 0 %; Eosinophils % (A) 1 %; HCT 33.4 % (34.0-46.0); HGB 10.3 gm/dL (11.4-16.0); Hypochromasia Slight; Lymphocytes % (A) 25 %; MCH 28.4 pg (25.0-35.0); MCV 91.6 fL (80.0-100.0); Monocytes # (A) 0.3 k/uL (0-1.0); Monocytes % (A) 7 %; Neutrophils # (A) 2.7 k/uL (1.3-7.7); Neutrophils % (A) 67 %; Platelet Count 170 k/uL (150-450); RBC 3.64 m/uL (3.80-5.40)
[2024-01-02 03:42] LABS: African American GFR (CKD) >90 (>60 ml/min/1.73 sqM); Anion Gap 6 mmol/L; Blood Urea Nitrogen 17 mg/dL (7-17); Calcium 8.2 mg/dL (8.4-10.2); Carbon Dioxide 25 mmol/L (22-30); Chloride 104 mmol/L (98-107); Glucose 94 mg/dL (74-99); Non-African American GFR(CKD) >90 (>60 ml/min/1.73 sqM); Sodium 135 mmol/L (137-145)
[2024-01-02 07:56] LABS: Vit B1(Thiamine) 65 ug/L (38-122)
--- NOTE | 2024-01-02 13:05 | P.PN ---
Subjective Progress Note Date: 01/02/24 This is a 48-year-old female with history of seizure disorder for the last 2 years, patient is maintained on seizure medications, however the patient ran out of her seizure meds, and she went on to develop recurrent seizures. Patient is normally on Depakote, and she follows up with Dr. Cervantes/neurologist. Patient had couple of short seizures en route to the hospital, and she had couple more seizures while in the ER. Patient received Ativan with improvement and she was also placed on Depakote and on Vimpat. Considering her postictal phase and recurrent seizures I was notified about this patient from the ER physician/Dr. Holt, and I admitted the patient to the ICU. No seizures overnight. Patient seems to be doing quite well today. Not in any distress. CT brain was unremarkable. Chest x-ray showed no evidence of pneumonia and no acute process. Labs today showed relatively normal CBC hemoglobin is 10.4 relatively normal electrolytes and normal renal profile. Valproic acid level yesterday was 21, subtherapeutic Patient seen today on 12/28/2023, patient remains in the ICU as an overflow. No seizure activity in the last 24 hours, reviewed the results of her EEG, patient remains seizure-free, she is on Depakote and Vimpat. Being followed by neurology, her workup has been all noted including the EEG findings showing seizure focus. Plan is to transfer the patient out of the ICU to regular medical floor or could even consider discharging the patient home if cleared by neurology labs today including CBC and basic metabolic profile are normal and clinically the patient is doing well and stable Patient was seen today on 12/29/2023, she was on the medical floor earlier today when I saw her, however shortly after I saw the patient apparently had multiple seizures requiring Ativan. Patient was sent back to the ICU today and she is to be seen by neurology for follow-up on her seizure disorder. Patient has been seen by Dr. Valdez all along since admission, patient is on Depakote, she is also on Trileptal, and on Vimpat. CBC is basically unremarkable basic metabolic profile is normal Patient was today on 12/30/2023, patient was transferred back to the ICU yesterday mostly because she went on to develop recurrent seizures/status epilepticus, seen by neurology, and she had already treatment with Depakote Vimpat and Trileptal. No seizure activity overnight, patient is doing well today, does not seem to be in any distress, neurology is following. But again no seizure activity in the last 12 hours. WBC is 5.3 hemoglobin 10.1 basic metabolic profile is normal renal profile is normal blood sugar is 72. Patient today on 12/31/2023, patient remains in the ICU, she had 1 seizure last night lasted 1 minute, responded to Ativan. Last night the patient had multiple episodes of emesis, the emesis was so frequent hence the patient had a nasogastric tube. In place, and she received Zofran. Chest x-ray today showed minimal left basilar atelectasis, no evidence of aspiration pneumonia. Patient is quite lethargic, however she is arousable, she is appropriate and she knows where she is and the year. Patient does not seem to be in any distress. Patient is being followed by neurology for her poorly controlled seizures in spite of maximal therapy with Trileptal, Vimpat, and Depakote. WBC count today is 6.0 hemoglobin 10.7. Electrolytes are normal renal profile is normal. Patient was evaluated today on 01/01/2024, remains in the ICU, no seizure activity over the last 24 hours. Patient remains on Depakote, Vimpat, Trileptal, her GI symptoms/nausea and vomiting have resolved, patient pulled out her nasogastric tube. Today she seems to be doing quite well, and she is more awake, and more appropriate. Labs showed relatively normal CBC and normal abisai ctrolytes. WBC count is 5.9 hemoglobin is 10 electrolytes are normal renal profile is normal The patient is seen today January 02, 2024 in follow-up on the regular medical floor. She is currently resting comfortably in bed. Apparently she did have another seizure last night LOC. She did receive Ativan 1 mg x 1. Seizure precautions remain in place. She is continued on Depakote, Vimpat, Trileptal. Heparin for DVT prophylaxis. White count 4.0. Hemoglobin 10.3. Platelets 170. Sodium 135. Potassium 4.0. Bicarb 25. BUN 17. Creatinine 0.69. Glucose 94. Valproic acid level 86.1. Chest x-ray reveals no acute pulmonary process. Objective - Vital Signs Vital signs: Vital Signs Temp 97.9 F 01/02/24 06:50 Pulse 64 01/02/24 06:50 Resp 17 01/02/24 06:50 BP 101/66 01/02/24 06:50 Pulse Ox 97 01/02/24 06:50 FiO2 Intake & Output 01/01/24 01/02/24 01/02/24 18:59 06:59 18:59 Intake Total 1060 240 Output Total 1000 Balance 1060 -760 Intake: IV 0 0.9% NS KVO 0 Intake, IV Titration 100 Amount Magnesium Sulfate-D5w Pmx 100 1 gm In Dextrose/Water 1 100ml.bag @ 100 mls/hr IVPB ONCE ONE Rx#: [id number] Oral 960 240 Output: Urine 1000 Other: # Voids 1 1 # Bowel Movements 0 - Exam GENERAL EXAM: Alert, 48-year-old female, on room air, comfortable in no apparent distress. HEAD: Normocephalic. EYES: Normal reaction of pupils, equal size. NOSE: Clear with pink turbinates. THROAT: No erythema or exudates. NECK: No masses, no JVD. CHEST: No chest wall deformity. LUNGS: Equal air entry with no crackles, wheeze, rhonchi or dullness. CVS: S1 and S2 normal with no audible murmur, regular rhythm. ABDOMEN: No hepatosplenomegaly, normal bowel sounds, no guarding or rigidity. SPINE: No scoliosis or deformity SKIN: No rashes CENTRAL NERVOUS SYSTEM: No focal deficits, tone is normal in all 4 extremities. EXTREMITIES: There is no peripheral edema. No clubbing, no cyanosis. Peripheral pulses are intact. - Labs CBC & Chem 7: 01/02/24 03:01 01/02/24 03:01 Labs: Abnormal Lab Results - Last 24 Hours (Table) 01/01/24 01/01/24 01/02/24 Range/Units 22:55 23:19 03:01 RBC 3.64 L (3.80-5.40) m/uL Hgb 10.3 L (11.4-16.0) gm/dL Hct 33.4 L (34.0-46.0) % Sodium 136 L (137-145) mmol/L Potassium 3.4 L (3.5-5.1) mmol/L Glucose 131 H (74-99) mg/dL POC Glucose (mg/dL) 126 H (70-110) mg/dL Calcium (8.4-10.2) mg/dL 01/02/24 Range/Units 03:01 RBC (3.80-5.40) m/uL Hgb (11.4-16.0) gm/dL Hct (34.0-46.0) % Sodium 135 L (137-145) mmol/L Potassium (3.5-5.1) mmol/L Glucose (74-99) mg/dL POC Glucose (mg/dL) (70-110) mg/dL Calcium 8.2 L (8.4-10.2) mg/dL Assessment and Plan Assessment: Status epilepticus, resolved, maintained on Trileptal, Vimpat, and Depakote. Still with breakthrough seizure last night 01/01/2024 Postictal altered mental status History of seizure disorder History of GERD without esophagitis History of migraine cephalgia History of depression and anxiety Chronic pain syndrome Recurrent emesis Plan: The patient was seen and evaluated Chest x-ray, labs and medications reviewed Currently stable and on room air Remains in seizure precautions Continue the current medications Neurology is following We will continue to follow I have personally seen and examined the patient, performed the documentation and the assessment and plan as written. Number of minutes spent on the visit: 10 Dictation was produced using [employer] dictation software. Please excuse any grammatical, word or spelling errors.
[2024-01-02 14:00] VITALS: BMI 27.1
--- NOTE | 2024-01-02 14:57 | PN ---
PROGRESS NOTE DATE OF SERVICE: 01/01/2024 SUBJECTIVE: This is a 48-year-old woman with a past medical history of seizures and recurrent seizures despite multiple medications. The patient has allergy to multiple medications also. Neurology is following the patient closely and medications being adjusted at this time. Chest x-ray was reviewed. PAST MEDICAL HISTORY: Reviewed. REVIEW OF SYSTEMS: Fourteen-point review is negative. CURRENT MEDICATIONS: Reviewed. PHYSICAL EXAMINATION: VITAL SIGNS: Pulse is 75, blood pressure 114/70, respirations 17. HEENT: Conjunctivae normal. CARDIOVASCULAR: S1 and S2. RESPIRATIONS: A few scattered rhonchi. ABDOMEN: Soft. NERVOUS: Nonfocal. LABORATORY DATA: Sodium 135. ASSESSMENT: 1. Acute seizures with breakthrough seizures, multiple. 2. History of change in mental status, metabolic encephalopathy acute. 3. Gastroesophageal reflux disease. 4. Hyperammonemia. 5. History of migraines, multiple complex medical issues. RECOMMENDATIONS AND DISCUSSION: Recommend to continue current management and planned treatment. Ammonia is normal at this time. Exact etiology of hyperammonemia is unknown. I would recommend close followup and outpatient followup including Gastroenterology consultation. Otherwise, at this time, I recommend repeat labs. Continue the antiseizure medications. Watch for seizures. Prognosis guarded because of multiple complex medical issues. Further recommendations to follow. MMODL / IJN: [id number] /
--- NOTE | 2024-01-02 16:01 | P.PN ---
Subjective Progress Note Date: 01/02/24 I am seeing the patient for the first time during this admission. Please refer to Dr. Valdez and Richard's notes for further details. Patient has underlying history of seizure and she presented with status ep ilepticus. It seems the patient has ran out of Depakote and patient stated that she does not have a neurologist since her prior neurologist notified her to see someone else and she has a coming up appointment with a different neurologist and February 2024. It seems the patient had 2 seizures overnight 1 around 1030 and 1 around midnight according to the nurse. Patient is on 3 seizure medication of Depakote, Trileptal and Vimpat. Objective - Vital Signs Vital signs: Vital Signs Temp 97.9 F 01/02/24 14:00 Pulse 79 01/02/24 14:00 Resp 17 01/02/24 14:00 BP 120/80 01/02/24 14:00 Pulse Ox 96 01/02/24 14:00 FiO2 Intake & Output 01/01/24 01/02/24 01/02/24 18:59 06:59 18:59 Intake Total 1060 240 Output Total 1000 Balance 1060 -760 Weight 78.6 kg Intake: IV 0 0.9% NS KVO 0 Intake, IV Titration 100 Amount Magnesium Sulfate-D5w Pmx 100 1 gm In Dextrose/Water 1 100ml.bag @ 100 mls/hr IVPB ONCE ONE Rx#: [id number] Oral 960 240 Output: Urine 1000 Other: # Voids 1 1 # Bowel Movements 0 - Exam General: Lying in bed and is not in acute distress. Neuro: Patient is mildly drowsy but is awake able to voice is oriented to self place and time. Is following simple commands. No aphasia no neglect. The pupils are round equal reactive to light. Visual coon are full to confrontation. Extraocular movement intact no nystagmus. No facial weakness. Motor strength is 5 out of 5 throughout Sensation is normal to touch. - Labs CBC & Chem 7: 01/02/24 03:01 01/02/24 03:01 Labs: Abnormal Lab Results - Last 24 Hours (Table) 01/01/24 01/01/24 01/02/24 Range/Units 22:55 23:19 03:01 RBC 3.64 L (3.80-5.40) m/uL Hgb 10.3 L (11.4-16.0) gm/dL Hct 33.4 L (34.0-46.0) % Sodium 136 L (137-145) mmol/L Potassium 3.4 L (3.5-5.1) mmol/L Glucose 131 H (74-99) mg/dL POC Glucose (mg/dL) 126 H (70-110) mg/dL Calcium (8.4-10.2) mg/dL 01/02/24 Range/Units 03:01 RBC (3.80-5.40) m/uL Hgb (11.4-16.0) gm/dL Hct (34.0-46.0) % Sodium 135 L (137-145) mmol/L Potassium (3.5-5.1) mmol/L Glucose (74-99) mg/dL POC Glucose (mg/dL) (70-110) mg/dL Calcium 8.2 L (8.4-10.2) mg/dL Assessment and Plan Assessment: Seizure disorder, came with status epilepticus. Patient apparently had ran out of her Depakote and missed 4 doses before she had recurrent seizures. Had two seizures overnight (one at 10:30pm and next was at midnight)---today is doing better. The patient has been seizure-free for more than 24 hours. She is neurologically stable. * Reported seizure disorder, for last 2 years since she received flu and COVID shots. 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 * During this admission, Trileptal was increased to 450 mg twice daily.Watch for rash. * Continue Vimpat 150 mg 3 times daily and Depakote 1000 mg twice daily for now. * EEG was performed, which was abnormal EEG due to recording of an electrographic seizure, started with focal sharp waves involving the left temporal region and involving to high amplitude rhythmic delta over the left temporal region that lasted for 7 minutes, aborted with 1 mg of Ativan. This is suggestive of focal irritative lesion with tendency for focal onset seizure. There was also presence of frontal intermittent rhythmic delta activity, which may suggest underlying encephalopathy or convulsive tendency. * Depakote level is 72.4, which is therapeutic. Ammonia is 67-->resolved, and my colleague was concerned about due to Depakote but I also feel it could be due to seizure. * DVT prophylaxis: Start heparin 5000 subcu every 8 hours. * Per my colleague, As needed Ativan order has been adjusted to 1 mg IV push for seizure lasting longer than 2 minutes. The patient is quite lethargic and so will attempt to limit Ativan * Upon discharge, recommend the patient to follow-up with neurologist as outp atient within 2 weeks. She is in the process of seeing a new neurologist in 02/2024 and I notified her to call them to see if they have cancellation. The plan is discussed with patient, primary team and her nurse. Time with Patient: Less than 30
--- NOTE | 2024-01-02 23:04 | P.PN ---
Subjective Progress Note Date: 01/02/24 This is a pleasant 48-year-old female who was recently admitted for recurrent seizures with history of seizures. Patient follows with Dr. Galeano in the outpatient setting although reports running out of medications. Patient's family at the bedside as patient continues to report significant headache and dizziness and lightheadedness. Patient did strike her head and fall flat on her face when having a seizure prior to admission. Patient mentation is improved although patient is severely depressed. Patient with neurology following undergoing further workup. Will add meclizine and supportive care for the headache. Recommend increased activity as tolerated. Patient is a transfer out of the ICU once a bed becomes available. 12/28/2023 Patient is seen in follow-up today initially seizure-free although upon exam patient was having another seizure that was witnessed by nursing staff and improved after Ativan administration. Neurology following undergoing further workup including EEG and medication adjustments. Psychiatry also consulted and pending as patient is severely depressed. Patient afebrile and otherwise stable and was being considered for transfer out of the ICU. No bed available at this time. Continue with seizure precautions and monitor for any further seizure activity 12/29/2023 Patient is seen in follow-up currently transferred out of the ICU early this morning and on exam patient is actively seizing and appears status. Patient will be going back to the ICU and discussing further with neurology regarding possible transfer for tertiary treatment. Medications being adjusted per neurology and will discuss further. Patient was evaluated by psychiatry making adjustments to medications and does not meet inpatient criteria recommending outpatient follow-up with counseling. 12/30/2023 Patient is seen and evaluated in the ICU this morning. Patient had multiple seizures requiring close monitoring. Medications being adjusted with neurology following closely and patient is maintained on Vimpat and also Trileptal. Discussion was had with neurology regarding possible transfer to a tertiary center and for neurology/neurosurgery evaluation and close monitoring. Patient family is agreeable if necessary although would like to remain here if possible. Patient is afebrile and there has been no reported chest pain or shortness of breath. Continue seizure precautions and continue as needed Ativan. A.m. labs ordered. Monitor ammonia levels and use lactulose for now. 01/02/2024 Patient is seen in follow-up this morning currently awake sitting up with michael garza at the bedside having conversation. Patient reports to feeling dizzy and weak and was reported that patient had 2 seizures last night and being followed closely by neurology. Neurology feels patient needs continuous EEG monitoring which we do not have at this facility and have initiated a tertiary treatment transfer to [facility] or [facility]. Patient is afebrile with no reports of chest pain or shortness of breath. Review of systems: Constitutional: No reports of fatigue, fever, or chills Cardiovascular: No reports of chest pain or palpitations Respiratory: No reports of shortness of breath or cough GI: No reports of nausea, vomiting, or diarrhea : No reports of dysuria or retention Neurovascular: reports of weakness and continued dizziness All medications have been reviewed PHYSICAL EXAMINATION: GENERAL: The patient is alert and oriented x 3, well developed, appears older than stated age, ill-appearing HEENT: Pupils are round and equally reacting to light. EOMI. no scleral icterus. No conjunctival pallor. Normocephalic, atraumatic. No pharyngeal erythema. No thyromegaly. CARDIOVASCULAR: S1 and S2 muffled PULMONARY: diminished breath sounds bilaterally with no wheezing or rhonchi noted. ABDOMEN: soft. Nontender on exam. obese. non-distended, normoactive bowel sounds. No palpable organomegaly. MUSCULOSKELETAL: No joint swelling or deformity. EXTREMITIES: No cyanosis, clubbing, or pedal edema. NEUROLOGICAL: Gross neurological examination did not reveal any focal deficits. Diffuse weakness SKIN: No rashes. Assessment: Acute seizure disorder with breakthrough seizures Change in mental status, metabolic encephalopathy, possible cerebral concussion as patient did strike her head on seizure at home Gastroesophageal reflux disease Hyperammonemia, possibly secondary to seizure medications, improved History of migraines History of gastric sleeve surgery Anxiety and depression GI prophylaxis DVT prophylaxis Full code Plan: Recommend to continue with current medications and management with neurology following. Patient is out of the ICU on a MedSurg unit being followed by neurology. Apparently patient had 2 more seizures last night and was given Ativan and 1 was aborted. Patient has had multiple medication adjustments including Trileptal, Vimpat, and Depakote and continuing to have seizure activity. Neurologist recommending transfer for tertiary treatment for continuous EEG monitoring. Patient has been accepted by Dr. Fernandez at [facility] with neurologist on consult. Apparently there are no beds available that have telemetry monitoring at [facility] and will likely have a bed tomorrow. Attempted [facility] in [place] for transfer and may likely be excepted although there are over 50 people waiting ahead of her. No chance for a bed in the next 24 to 48 hours. Patient and are reluctant for transfer although are willing and agreeable if necessary. Continue current regimen and adjusting medications per neurology Patient evaluated by psychiatry making adjustments to medications recommending outpatient follow-up with [facility] and counseling. Patient does not meet inpatient criteria for psychiatry Recommend PT/OT therapy evaluation and encouraged to increase activity as tolerated. Continue seizure precautions Encourage sitting up more frequently Overall prognosis is extremely guarded Possible transfer to [facility] tomorrow once a bed is available for continuous EEG monitoring. The impression and plan of care has been dictated by Lisa Choudhury, nurse practitioner as directed. Dr. Heriberto MD I have performed a history and examination and MDM of this patient, discussed the same with the dictator, and agree with the dictator's assessment and plan as written ,documented as a scribe. Based on total visit time, I have performed more than 50% of the visit. Any additional findings or plans will be noted. Objective - Vital Signs Vital signs: Vital Signs Temp 97.9 F 01/02/24 14:00 Pulse 79 01/02/24 14:00 Resp 17 01/02/24 14:00 BP 120/80 01/02/24 14:00 Pulse Ox 96 01/02/24 14:00 FiO2 Intake & Output 01/01/24 01/02/24 01/02/24 18:59 06:59 18:59 Intake Total 1060 240 Output Total 1000 Balance 1060 -760 Weight 78.6 kg Intake: IV 0 0.9% NS KVO 0 Intake, IV Titration 100 Amount Magnesium Sulfate-D5w Pmx 100 1 gm In Dextrose/Water 1 100ml.bag @ 100 mls/hr IVPB ONCE ONE Rx#: [id number] Oral 960 240 Output: Urine 1000 Other: # Voids 1 1 # Bowel Movements 0 - Labs CBC & Chem 7: 01/02/24 03:01 01/02/24 03:01 Labs: Abnormal Lab Results - Last 24 Hours (Table) 01/01/24 01/01/24 01/02/24 Range/Units 22:55 23:19 03:01 RBC 3.64 L (3.80-5.40) m/uL Hgb 10.3 L (11.4-16.0) gm/dL Hct 33.4 L (34.0-46.0) % Sodium 136 L (137-145) mmol/L Potassium 3.4 L (3.5-5.1) mmol/L Glucose 131 H (74-99) mg/dL POC Glucose (mg/dL) 126 H (70-110) mg/dL Calcium (8.4-10.2) mg/dL 01/02/24 Range/Units 03:01 RBC (3.80-5.40) m/uL Hgb (11.4-16.0) gm/dL Hct (34.0-46.0) % Sodium 135 L (137-145) mmol/L Potassium (3.5-5.1) mmol/L Glucose (74-99) mg/dL POC Glucose (mg/dL) (70-110) mg/dL Calcium 8.2 L (8.4-10.2) mg/dL
[2024-01-02] MEDS: LORazepam 2 MG/ML INJ IV STA (23:43)
--- NOTE | 2024-01-03 12:35 | P.PN ---
Subjective Progress Note Date: 01/03/24 This is a 48-year-old female with history of seizure disorder for the last 2 years, patient is maintained on seizure medications, however the patient ran out of her seizure meds, and she went on to develop recurrent seizures. Patient is normally on Depakote, and she follows up with Dr. Cervantes/neurologist. Patient had couple of short seizures en route to the hospital, and she had couple more seizures while in the ER. Patient received Ativan with improvement and she was also placed on Depakote and on Vimpat. Considering her postictal phase and recurrent seizures I was notified about this patient from the ER physician/Dr. Holt, and I admitted the patient to the ICU. No seizures overnight. Patient seems to be doing quite well today. Not in any distress. CT brain was unremarkable. Chest x-ray showed no evidence of pneumonia and no acute process. Labs today showed relatively normal CBC hemoglobin is 10.4 relatively normal electrolytes and normal renal profile. Valproic acid level yesterday was 21, subtherapeutic Patient seen today on 12/28/2023, patient remains in the ICU as an overflow. No seizure activity in the last 24 hours, reviewed the results of her EEG, patient remains seizure-free, she is on Depakote and Vimpat. Being followed by neurology, her workup has been all noted including the EEG findings showing seizure focus. Plan is to transfer the patient out of the ICU to regular medical floor or could even consider discharging the patient home if cleared by neurology labs today including CBC and basic metabolic profile are normal and clinically the patient is doing well and stable Patient was seen today on 12/29/2023, she was on the medical floor earlier today when I saw her, however shortly after I saw the patient apparently had multiple seizures requiring Ativan. Patient was sent back to the ICU today and she is to be seen by neurology for follow-up on her seizure disorder. Patient has been seen by Dr. Valdez all along since admission, patient is on Depakote, she is also on Trileptal, and on Vimpat. CBC is basically unremarkable basic metabolic profile is normal Patient was today on 12/30/2023, patient was transferred back to the ICU yesterday mostly because she went on to develop recurrent seizures/status epilepticus, seen by neurology, and she had already treatment with Depakote Vimpat and Trileptal. No seizure activity overnight, patient is doing well today, does not seem to be in any distress, neurology is following. But again no seizure activity in the last 12 hours. WBC is 5.3 hemoglobin 10.1 basic metabolic profile is normal renal profile is normal blood sugar is 72. Patient today on 12/31/2023, patient remains in the ICU, she had 1 seizure last night lasted 1 minute, responded to Ativan. Last night the patient had multiple episodes of emesis, the emesis was so frequent hence the patient had a nasogastric tube. In place, and she received Zofran. Chest x-ray today showed minimal left basilar atelectasis, no evidence of aspiration pneumonia. Patient is quite lethargic, however she is arousable, she is appropriate and she knows where she is and the year. Patient does not seem to be in any distress. Patient is being followed by neurology for her poorly controlled seizures in spite of maximal therapy with Trileptal, Vimpat, and Depakote. WBC count today is 6.0 hemoglobin 10.7. Electrolytes are normal renal profile is normal. Patient was evaluated today on 01/01/2024, remains in the ICU, no seizure activity over the last 24 hours. Patient remains on Depakote, Vimpat, Trileptal, her GI symptoms/nausea and vomiting have resolved, patient pulled out her nasogastric tube. Today she seems to be doing quite well, and she is more awake, and more appropriate. Labs showed relatively normal CBC and normal abisai ctrolytes. WBC count is 5.9 hemoglobin is 10 electrolytes are normal renal profile is normal The patient is seen today January 02, 2024 in follow-up on the regular medical floor. She is currently resting comfortably in bed. Apparently she did have another seizure last night LOC. She did receive Ativan 1 mg x 1. Seizure precautions remain in place. She is continued on Depakote, Vimpat, Trileptal. Heparin for DVT prophylaxis. White count 4.0. Hemoglobin 10.3. Platelets 170. Sodium 135. Potassium 4.0. Bicarb 25. BUN 17. Creatinine 0.69. Glucose 94. Valproic acid level 86.1. Chest x-ray reveals no acute pulmonary process. The patient is seen today January 03, 2024 in follow-up on the regular medical floor. She is awake and alert in no acute distress. Maintaining good O2 saturations in the upper 90s on room air. Afebrile. Hemodynamically stable. More interactive today. Sitting up having breakfast. No further seizure activity. She remains on Vimpat, Depakote and Trileptal. Meclizine for her dizziness. No new labs today. Objective - Vital Signs Vital signs: Vital Signs Temp 98.0 F 01/03/24 07:25 Pulse 69 01/03/24 07:25 Resp 16 01/03/24 07:25 BP 119/76 01/03/24 07:25 Pulse Ox 98 01/03/24 07:25 FiO2 Intake & Output 01/02/24 01/03/24 01/03/24 18:59 06:59 18:59 Intake Total 120 Balance 120 Weight 78.6 kg Intake: Oral 120 Other: Voiding Method Bedside Commode # Voids 2 - Exam GENERAL EXAM: Alert, 48-year-old female, sitting up in bed having breakfast, on room air, comfortable in no apparent distress. HEAD: Normocephalic. EYES: Normal reaction of pupils, equal size. NOSE: Clear with pink turbinates. THROAT: No erythema or exudates. NECK: No masses, no JVD. CHEST: No chest wall deformity. LUNGS: Equal air entry with no crackles, wheeze, rhonchi or dullness. CVS: S1 and S2 normal with no audible murmur, regular rhythm. ABDOMEN: No hepatosplenomegaly, normal bowel sounds, no guarding or rigidity. SPINE: No scoliosis or deformity SKIN: No rashes CENTRAL NERVOUS SYSTEM: No focal deficits, tone is normal in all 4 extremities. EXTREMITIES: There is no peripheral edema. No clubbing, no cyanosis. Peripheral pulses are intact. - Labs CBC & Chem 7: 01/02/24 03:01 01/02/24 03:01 Assessment and Plan Assessment: Status epilepticus, resolved, maintained on Trileptal, Vimpat, and Depakote. Still with breakthrough seizure 01/01/2024 Postictal altered mental status History of seizure disorder History of GERD without esophagitis History of migraine cephalgia History of depression and anxiety Chronic pain syndrome Recurrent emesis Plan: The patient was seen and evaluated Medications reviewed Currently stable and on room air Remains in seizure precautions Continue the current medications Home once cleared by neurology I have personally seen and examined the patient, performed the documentation and the assessment and plan as written. Number of minutes spent on the visit: 10 Dictation was produced using [employer] dictation software. Please excuse any grammatical, word or spelling errors.
--- NOTE | 2024-01-03 13:07 | P.DS ---
Providers Date of admission: 12/26/23 17:05 Expected date of discharge: 01/03/24 Attending physician: Donald Louis Consults: 12/26/23 15:29 Consult Physician Routine Consulting Provider: Barbie Valdez Consult Reason/Comments: SZ Do you want consulting provider notified?: Yes 12/26/23 17:05 Consult Physician Stat Consulting Provider: Kristi Amado Consult Reason/Comments: crit care Do you want consulting provider notified?: Already Contacted 12/26/23 21:18 Consult Physician Routine Consulting Provider: Roldan Gomez Consult Reason/Comments: depression screening Do you want consulting provider notified?: Yes, Notify in am Primary care physician: [facility] Hospital Course: Final diagnosis Acute seizure disorder with breakthrough seizures Change in mental status, metabolic encephalopathy, possible cerebral concussion as patient did strike her head on seizure at home Gastroesophageal reflux disease Hyperammonemia, possibly secondary to seizure medications, improved History of migraines History of gastric sleeve surgery Anxiety and depression GI prophylaxis DVT prophylaxis Full code Discharge disposition Patient is being transferred in a stable condition with guarded prognosis to [facility] and has been accepted by Dr. Fernandez as admitting with neurology on consult for continuous EEG monitoring. Patient will follow-up with Dr. hsieh in the outpatient setting upon discharge. Patient is to continue with neurology outpatient as scheduled. Total time taken is greater than 35 minutes. Hospital course This is a 48year-old female who was recently admitted with recurrent breakthrough seizures with history of seizure disorder. Multiple medication adjustments including Vimpat, Trileptal, Depakote have been done and patient continues to have recurrent seizures. Patient evaluated again by neurology recommending transfer for tertiary treatment for continuous EEG monitoring. Patient and family are agreeable and has received a bed at [facility]. Patient accepted by Dr. Fernandez with neurology on consult. Patient will be going to room 304 bed 1 at [facility]. Nurse to nurse report ongoing at this time. Patient has been cleared by consultations for transfer with guarded prognosis. Patient was also evaluated by psychiatry for depression and continues to report extreme anxiety when she feels a seizure is coming on. Q uestionable pseudoseizures. Patient did have multiple episodes of seizure activity requiring doses of Ativan. Again neurology recommending continuous EEG monitoring for further evaluation. Please refer to other consultation notes for further HPI. Currently no reports of chest pain, shortness of breath, or palpitations. Patient is afebrile. No reports of nausea or vomiting and patient is tolerating diet. Patient will be going to [facility] today. Guarded prognosis Physical exam: Gen: This is a 48-year-old female who is awake, alert and oriented x 2-3, well- developed, appears older than stated age, ill-appearing HEENT: Head is atraumatic, normocephalic. Pupils equal, round. Sclerae is anicteric. NECK: Supple. No JVD. No lymphadenopathy. No thyromegaly. LUNGS: Clear to auscultation. No wheezes or rhonchi. No intercostal retractions. HEART: Regular rate and rhythm. No murmur. ABDOMEN: Soft. Bowel sounds are present. No masses. No tenderness. EXTREMITIES: No pedal edema. No calf tenderness. NEUROLOGICAL: Patient is awake, alert and oriented x3. Cranial nerves 2 through 12 are grossly intact. Diffusely weak Please refer to medication reconciliation sheet for a list of medications. The impression and plan of care has been dictated by Lisa Choudhury, Nurse Practitioner as directed. Dr. Heriberto MD I have performed a history and examination and MDM of this patient, discussed the same with the dictator, and agree with the dictator's assessment and plan as written ,documented as a scribe. Based on total visit time, I have performed more than 50% of the visit. Patient Condition at Discharge: Fair Plan - Discharge Summary Discharge Rx Participant: No New Discharge Prescriptions: No Action HYDROcodone/APAP 7.5-325MG [[place] 7.5-325] 1 tab PO BID PRN PRN Reason: Pain Divalproex Sodium [Depakote] 1,000 mg PO BID #60 tab hydrOXYzine HCL [Atarax] 25 mg PO QID PRN PRN Reason: Anxiety Lacosamide [Vimpat] 150 mg PO TID #90 tab traZODone HCL [Desyrel] 50 - 100 mg PO HS PRN PRN Reason: Insomnia Discharge Medication List HYDROcodone/APAP 7.5-325MG [[place] 7.5-325] 1 tab PO BID PRN 05/25/23 [History] hydrOXYzine HCL [Atarax] 25 mg PO QID PRN 05/25/23 [History] Divalproex Sodium [Depakote] 1,000 mg PO BID #60 tab 05/29/23 [Rx] Lacosamide [Vimpat] 150 mg PO TID #90 tab 05/29/23 [Rx] traZODone HCL [Desyrel] 50 - 100 mg PO HS PRN 12/26/23 [History] Follow up Appointment(s)/Referral(s): Pauline Saucedo [Primary Care Provider] - 1-2 days Patient Instructions/Handouts: Seizure/Epilepsy Discharge Instructions & Follow-Up
[2024-01-03 14:39] VITALS: BP 121/76; PULSE 80; RESP 17; TEMP 98.2
== END 2024-01-03 17:03 | disposition short-term general hospital (02) | DRG 53 ==
LOC: EC 13:19 → 2SICU 17:05 → 5NMEDONC 12-29 07:43 → 2SICU 12-29 11:40 → 4SSUR 01-01 21:35
PROVIDERS: ADMIT Hospitalist; ATTEND Hospitalist
DX: G40.911 Epilepsy, unspecified, intractable, with status epilepticus (principal); E72.20 Disorder of urea cycle metabolism, unspecified; F32.9 Major depressive disorder, single episode, unspecified; F41.9 Anxiety disorder, unspecified; G89.4 Chronic pain syndrome; G93.41 Metabolic encephalopathy; I25.2 Old myocardial infarction; G43.909 Migraine, unspecified, not intractable, without status migrainosus; K21.9 Gastro-esophageal reflux disease without esophagitis; R32 Unspecified urinary incontinence; S06.0XAA Concussion with loss of consciousness status unknown, initial encounter; W19.XXXA Unspecified fall, initial encounter; Y92.002 Bathroom of unspecified non-institutional (private) residence as the place of occurrence of the external cause; Z79.899 Other long term (current) drug therapy; Z91.199 Patient's noncompliance with other medical treatment and regimen due to unspecified reason; Z98.84 Bariatric surgery status; Z56.0 Unemployment, unspecified; Z86.14 Personal history of Methicillin resistant Staphylococcus aureus infection; Z28.311 Partially vaccinated for COVID-19; Z28.21 Immunization not carried out because of patient refusal
CPT/HCPCS: 36415; 70450; 71045; 80048; 80053; 80164; 80320; 82140; 82525; 82607; 82746; 83735; 84425; 84630; 85025; 93005; 95816; 96361; 96365; 96375; 96376; 99285